=== PATIENT | male | born 1940 | race Caucasian/White ===

== ENCOUNTER 2017-12-03 08:40 | Emergency (ER) | payer MEDICARE, OTHER, SELFPAY ==
[2017-12-03] VITALS (42 sets, daily range): BP systolic 120–156; BP diastolic 49–73; PULSE 78–112; RESP 15–31; TEMP 36.8–37.4; O2SAT 93–99
[2017-12-03 08:53] LABS: Bilirubin Negative (Negative); Blood Moderate (Negative); Clarity Cloudy; Glucose Negative (Negative); Ketones Negative (Negative); Leukocyte Esterase Large (Negative); Nitrite Negative (Negative); Urobilinogen 0.2 EU/dL (Up TO 0.2); pH 5.5 (5-8)
--- NOTE | 2017-12-03 08:54 | DI.RAD_ITS ---
SYMPTOM/DIAGNOSIS: COUGH, CHILLS, CP AP AND LATERAL CHEST: Comparison is made with 14 Aug 2017. The heart size is within normal limits. The aorta is mildly tortuous There is streaky increased densities at the right lung base. There are mildly increased densities also seen at the left lung base. The findings could represent atelectasis vs pneumonia. No effusion is seen. There is no evidence of pulmonary edema. IMPRESSION: Question of bibasilar atelectasis vs pneumonia, left greater than right.
[2017-12-03 09:02] LABS: C & S Indicated? Yes; WBC >50 HPF (0-5)
[2017-12-03] MEDS: Ibuprofen 800 MG TAB PO (09:06)
[2017-12-03] MEDS: Acetaminophen 500 MG TAB 1000 MG PO (09:06)
--- NOTE | 2017-12-03 09:11 | ED.GENADUL_ITS ---
Discharge Plan Disposition Patient Disposition: HOME Condition: Good Discharge Details Chief Complaint: GenMedical Clinical Impression: Community acquired pneumonia, Urinary tract infection Primary Care Provider: Sheeba Morelos ED Provider: Aníbal Barraza Home Meds and New Rx's Prescriptions: New levofloxacin 750 mg tablet 750 mg PO DAILY Qty: 10 RF: 0 No Action fludrocortisone 0.1 MG tablet 0.15 mg PO DAILY Qty: 90 RF: 3 triamcinolone acetonide 15 GM cream 1 gr Topical BID Qty: 60 RF: 6 methotrexate sodium 2.5 MG tablet 15 mg PO as directed RF: 0 folic acid 1 MG tablet 2 mg PO DAILY RF: 0 montelukast 10 MG tablet 10 mg PO DAILY Qty: 90 RF: 3 budesonide-formoterol [Symbicort] 60 PUFF HFA aerosol inhaler 1 puff Inhalation BID Qty: 3 RF: 3 denosumab [Prolia] 60 MG/1 ML syringe 60 mg SQ q6 months RF: 0 pantoprazole 40 MG tablet,delayed release (DR/EC) 80 mg PO DAILY Qty: 90 RF: 3 cholecalciferol (vitamin D3) 2,000 UNIT tablet 5,000 unit PO DAILY RF: 0 hydrocortisone [Cortef] 5 MG tablet 5 tab-cap PO BID 90 Days Qty: 90 RF: 2 lidocaine [LC-5] 45 GM cream 1 film Topical 2-4 times daily PRN Qty: 1 RF: 0 needle (disp) 21 G [BD Regular Bevel [place]] 1 EACH needle 1 ea Miscellaneous monthly Qty: 12 RF: 0 cyanocobalamin (vitamin B-12) 1,000 MCG/1 ML solution 1,000 mcg IJ monthly Qty: 3 RF: 3 fluticasone 16 GM spray,suspension 2 spry NS DAILY Qty: 48 RF: 3 epinephrine 0.3 MG/SYR auto-injector 0.3 mg Sub-Q PRN PRNRF: 0 acetaminophen 325 MG tablet 650 mg PO Q4H PRN PRNRF: 0 aspirin [Aspir-81] 81 MG tablet,delayed release (DR/EC) 81 mg PO DAILY RF: 0 Discharge Instructions Additional Instructions: Please take antibiotic as directed. If you notice any pain in your joints or ligaments, please stop taking this immediately. If you notice any worsening of your symptoms, or any new symptoms such as vomiting, diarrhea, fever, chills, shortness of breath, chest pain, numbness, weakness, or fainting , please return immediately to the emergency department for reevaluation. Please follow up with your primary care provider as soon as possible for reassessment and reevaluation. As always, it was a pleasure participating in your medical care today. 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 He recently got his flu and shingles shot. Physical exam demonstrates no significant abnormalities at this time. Urinalysis does show signs of notable urinary tract infection. He has had a prostatectomy in the past, however he does not self catheterize. We will give the patient Rocephin IV, rehydrate, and assess for other sources of infection including pulmonary. EKG 9: 13 a.m. Rate 82, intervals normal, sinus rhythm, no ST elevations or depressions, inverted T waves in V2. No significant Q waves 12:44 PM patient's chest x-ray has returned and demonstrates evidence of small left lower lobe pneumonia. No other significant acute process per virtual radiology. The patient has no significant white count, no tachycardia, no fever , on reassessment the patient states that he is feeling much better. We did get him up and ambulate him around the emergency department he did so without any shortness of breath, hypoxemia or tachycardia. He tolerated this very well. With evidence of a small amount of community-acquired pneumonia, as well as urinary tract infection I feel that he would benefit from oral Levaquin to cover both lungs and urine. With the patient feeling well, and requesting to be discharged, I feel that this is appropriate. I do not see any current clinical indication for admission. Patient will be discharged home with close follow-up with his PCP. We discussed red flags which to return the patient understands. I have extensively reviewed the treatment plan and discharge instructions with the patient. I have addressed all patient concerns at this time. The patient was made aware of what symptoms to monitor for that would warrant a return to the emergency department. Discussed the plan with the patient, they demonstrate verbal understanding and agreement with our assessment and plan at this time. Lab Data Lab Results 12/03/17 Range/Units 08:45 Urine Color Yellow (Yellow) Urine Clarity Cloudy Urine pH 5.5 (5-8) Ur Specific [place] 1.020 (1.005-1.025) Urine Protein 100 H (Negative) mg/dL Urine Ketones Negative (Negative) mg/dL Urine Blood Moderate H (Negative) Urine Nitrite Negative (Negative) Urine Bilirubin Negative (Negative) Urine Urobilinogen 0.2 (Up TO 0.2) EU/dL Ur Leukocyte Esterase Large H (Negative) Urine RBC Not Applicable Urine WBC >50 (0-5) HPF Ur Epithelial Cells Not Applicable Urine Crystals Not Applicable Urine Bacteria Not Applicable Urine Mucus Not Applicable Ur Culture Indicated? Yes Urine Glucose Negative (Negative) mg/dL HPI - General Adult General Date/Time Provider Initiated Documentation: 12/03/17 08:54 . HPI Narrative: This is a 77-year-old male with a past medical history of myocardial infarction, adrenalectomy, chronic steroid secondary to this, DVT in the left lower extremity secondary to surgery and a long trip no longer on anticoagulation per his physician, colitis with eventual ostomy, appendectomy, cholecystectomy, who presents today for feelings of malaise. The patient states that over the last 24-48 hours he has had mild upset stomach, no vomiting. He denies any significant abdominal pain. He has also had an increase in urinary frequency, mild cough, and a mild headache. He has a history of cluster headaches, and he states that this current headache is very mild, not the worst headache of his life, not thunderclap in onset. The patient does admit to mild chills but denies any fever. He denies any vision changes, arm pain, neck pain, shoulder pain, chest pain, productivity for his cough, hemoptysis, hematemesis, hematuria, hematochezia, melena, acholic stool. Patient does state that he got his flu shot last week as well as a shingles shot. He feels that the symptoms may be from this. Patient denies any other complaints at this time. He denies any IV or illicit drug use. He denies any pertinent family history. Related Data Home Medications Medication Instructions Recorded Confirmed epinephrine 0.3 mg SUB-Q PRN PRN 10/07/14 12/03/17 acetaminophen 650 mg PO Q4H PRN PRN 10/26/15 12/03/17 aspirin [Aspir-81] 81 mg PO DAILY 10/26/15 12/03/17 folic acid 2 mg PO DAILY 10/24/16 12/03/17 methotrexate sodium 15 mg PO as directed 10/24/16 04/25/17 denosumab [Prolia] 60 mg SQ q6 months 03/15/17 12/03/17 cholecalciferol (vitamin D3) 5,000 unit PO DAILY 04/19/17 12/03/17 Previous Rx's Medication Instructions Recorded levofloxacin 750 mg PO DAILY #10 tab 12/03/17 Allergies Allergy/AdvReac Type Severity Reaction Status Date / Time latex Allergy Intermediate rash, Verified 12/03/17 08:56 itching plasma protein fraction Allergy Intermediate Hives Verified 12/03/17 08:56 acebutolol Allergy Unknown Verified 12/03/17 08:56 promethazine Allergy Unknown Verified 12/03/17 08:56 pseudoephedrine Allergy Unknown Verified 12/03/17 08:56 terazosin Allergy Unknown Verified 12/03/17 08:56 tramadol HCl [From Ultracet] Allergy Unknown Verified 12/03/17 08:56 venom-honey bee Allergy Verified 12/03/17 08:56 [bee venom (honey bee)] ferrous sulfate AdvReac Severe Stomach Verified 12/03/17 08:56 aches tamsulosin HCl [From Flomax] AdvReac Severe Dizziness/L Verified 12/03/17 08:56 ightheade Antihistamines - Alkylamine AdvReac Unknown affected Unverified 12/03/17 08:56 prostate cefuroxime AdvReac Unknown daark urine Verified 12/03/17 08:56 plasma human Allergy Intermediate Hives Uncoded 12/03/17 08:56 General Stated Complaint: GenMedical SANTOSH: 2 Review of Systems Review of Systems 10 point review of systems was performed, pertinent positives and negatives are noted in the history of present illness. PFSH Family History Mother Cerebrovascular accident Father No problems noted. Sister No problems noted. Brother No problems noted. Brother Diabetes ASCVD (arteriosclerotic cardiovascular disease) Brother No problems noted. Sister Diabetes Sister No problems noted. Other Arthritis Medical History Abdominal wall fistula CKD (chronic kidney disease) COPD (chronic obstructive pulmonary disease) Cholelithiasis Chronic deep vein thrombosis (DVT) Hypertension Ileostomy in place Ulcerative colitis Social History Smoking/Tobacco Use Status: Former Tobacco Use Surgical History Cholecystectomy (02/15/16) Extraction of cataract (07/28/16) Fracture, Closed Treatment (02/15/16) Total colectomy (09/25/97) Transurethral prostatectomy (11/24/14) cystoureteroscopy,lithotrypsy (05/11/15) hernia repair (04/08/99) proctectomy (11/23/98) repair retinal breaks (12/24/03) transsphenoidal hypophysectomy (11/15/93) Exam Narrative Exam Narrative: 1.Const: Well-nourished, Well-developed, appearing stated age 2.Eyes: PERRL, no conjunctival injection, and symmetrical lids. 3.ENT: Atraumatic external nose and ears. Moist MM. Neck: Symmetric, trachea midline, No thyromegaly. Patient demonstrates good movement of cervical neck. There is no nuchal rigidity, no nuchal tenderness. Patient is able to flex the neck without any difficulty or significant pain. Negative Kernig's and Brudzinski sign. No pain on palpation of the scalp. No signs of trauma 4.CVS: +S1/S2, No murmurs or gallops. Peripheral pulses 2+ and equal in all extremities. Brisk capillary refill in all extremities. 5.RESP: Unlabored respiratory effort. Clear to auscultation bilaterally. No wheezes rales or rhonchi 6.GI: Soft, Nontender/Nondistended, No hepatosplenomegaly. No guarding or rebound. Noted ostomy, pink mucosa. No blood. Multiple abdominal scars. No tenderness on exam. 7.MSK: Normocephalic/Atraumatic, Extremities w/o deformity or ttp No cyanosis or clubbing, Normal movement of all extremities 8.Skin: Warm, Dry. No rashes or lesions. 9.Neuro: college advisor II-XII grossly intact. Sensation grossly intact, no focal neurologic deficits. 10.Psych: (AAO) x3. Appropriate mood and affect Course Vital Signs Temperature 37.1 C 12/03/17 08:48 Pulse 90 12/03/17 08:48 Respiratory Rate 20 12/03/17 08:48 Blood Pressure 141/73 H 12/03/17 08:48 Pulse Oximetry 99 12/03/17 08:48 Temperature 37.1 C 12/03/17 08:48 Pulse 90 12/03/17 08:48 Respiratory Rate 20 12/03/17 08:54 Blood Pressure 141/73 H 12/03/17 08:48 Pulse Oximetry 99 12/03/17 08:48 Lab/Test Results Lab/Test Results: Laboratory Tests 12/03/17 08:45 Urine Color Yellow Urine Clarity Cloudy Urine pH 5.5 Ur Specific [place] 1.020 Urine Protein 100 H Urine Ketones Negative Urine Blood Moderate H Urine Nitrite Negative Urine Bilirubin Negative Urine Urobilinogen 0.2 Ur Leukocyte Esterase Large H Urine RBC Not Applicable Urine WBC >50 Ur Epithelial Cells Not Applicable Urine Crystals Not Applicable Urine Bacteria Not Applicable Urine Mucus Not Applicable Ur Culture Indicated? Yes Urine Glucose Negative
[2017-12-03] MEDS: Normal Saline 1,000 ML 1000 ML IV (09:30)
[2017-12-03 09:37] LABS: Abs Immature Grans 0.02 k/cumm (0.0-0.09); Absolute Basophil Count 0.01 k/cumm (0.0-0.2); Absolute Eosinophil Count 0.36 k/cumm (0.0-0.7); Absolute Monocyte Count 1.12 k/cumm (0.11-0.7); Basophils % 0.2; Eosinophils % 6.8; HCT 37.5 % (40.0-50.0); HGB 12.3 g/dL (13.5-17.5); Immature Grans % 0.4; Lymphocytes % 15.1; Mean Corp. HGB Concentration 32.8 g/dL (32.0-36.0); Mean Corpuscular Hemoglobin 31.5 pg (27.0-33.0); Mean Corpuscular Volume 95.9 fL (80-95); Mean Platelet Volume 11.7 fL (8.0-11.0); Monocytes % 21.1; Neutrophils % 56.4; RBC 3.91 m/cumm (4.50-6.00); RBC Distribution Width 16.5 % (11.8-14.1); White Blood Cell Count 5.31 k/cumm (4.4-10.8)
[2017-12-03 09:53] LABS: ALT 38 U/L (12-78); AST 48 U/L (15-37); Albumin 3.4 g/dL (3.4-5.0); Alkaline Phosphatase 107 U/L (46-116); Anion Gap 8.6 mmol/L (3-11); BUN 18 mg/dL (7-18); Bilirubin, Total 1.4 mg/dL (0.2-1.0); CO2 27.4 mmol/L (21.0-32.0); CREATININE 1.18 mg/dL (0.70-1.30); Calcium 8.6 mg/dL (8.5-10.1); Chloride 102 mmol/L (98-107); Glucose 97 mg/dL (70-100); Lipase 199 U/L (73-393); Potassium 4.1 mmol/L (3.5-5.1); Sodium 138 mmol/L (136-145); Total Protein 7.4 g/dL (6.4-8.2)
[2017-12-03 09:54] LABS: Platelet Count 92 x1000/uL (130-400)
[2017-12-03 09:55] LABS: Diff Comment PLT Morph Reviewed; RBC Morphology Normal
[2017-12-03 10:00] LABS: Troponin I < 0.02 ng/mL (0.00-0.06)
[2017-12-03] MEDS: Normal Saline 500 ML 1000 ML IV (10:52)
--- NOTE | 2017-12-03 11:15 | DI.VRAD_ITS ---
EXAM: XR Chest, 2 Views EXAM DATE/TIME: 12/03/2017 8:57 AM CLINICAL HISTORY: 77 years old, male; Signs and symptoms; Other: Cough, chills, cp TECHNIQUE: Frontal and lateral views of the chest. COMPARISON: CR - CHEST 2 VIEWS PA,LAT 08/14/2017 11:13 AM FINDINGS: Lungs: There is some coarse left lower lobe markings increased in conspicuity compared to prior study. Pleural space: Unremarkable. No pneumothorax. Heart: Unremarkable. No cardiomegaly. Mediastinum: Unremarkable. Bones/joints: There is mild dextroscoliosis again seen. Vasculature: Moderate aortic ectasia noted. Upper abdomen: There is mild elevation of the left hemidiaphragm. IMPRESSION: Probable left lower lobe pneumonia. Followup to assess clearing recommended. Preliminary interpretation is based on receipt of 3 image(s). A final report will be issued subsequently. We appreciate the opportunity to be involved in this patient's care. Dictated and Authenticated by: Floridalma France MD. Ordering:LIZ RENAE MD
== END 2017-12-03 13:10 | disposition home or self-care (01) ==
PROVIDERS: Emergency Provider Student in an Organized Health Care Education/Training Program; PCP Nurse Practitioner
DX: J18.9 Pneumonia, unspecified organism (principal); N39.0 Urinary tract infection, site not specified; I12.9 Hypertensive chronic kidney disease with stage 1 through stage 4 chronic kidney disease, or unspecified chronic kidney disease; N18.9 Chronic kidney disease, unspecified; J44.9 Chronic obstructive pulmonary disease, unspecified; Z87.891 Personal history of nicotine dependence
CPT/HCPCS: 36415; 80053; 83690; 87449; 93005; 94618; 96361; 96365; 99285; 71046; 81003; 81015; 84484; 85025; 87086; 93010

== ENCOUNTER 2017-12-06 08:25 | Emergency (ER) | payer MEDICARE, OTHER, SELFPAY ==
[2017-12-06] VITALS (18 sets, daily range): BP systolic 119–142; BP diastolic 52–69; PULSE 69–84; RESP 15–36; TEMP 37.1; O2SAT 95–100
--- NOTE | 2017-12-06 08:21 | DI.CT_ITS ---
SYMPTOM/DIAGNOSIS: ALTERED MENTAL STATUS, ? CVA NONCONTRAST HEAD CT: No priors. There is a left subdural fluid collection extending along the left frontal and parietal bones. It is largely of decreased and intermediate density however there is a high density component consistent with an acute hemorrhagic component. There is very mild mass effect on the adjacent sulci. There does appear to be a slight midline shift to the right of approximately 3 mm. No intraparenchymal hemorrhage or infarct is seen. The ventricles are intact. The basilar cisterns are patent. There is mild global cerebral atrophy. Areas of decreased attenuation are seen in the white matter consistent with small vessel ischemic disease. The calvarium is intact. There is mild mucosal thickening in the maxillary sinuses and moderate mucosal thickening in the ethmoid air cells. No fluid levels are present. The mastoid air cells are well pneumatized. IMPRESSION: Left frontal and parietal subdural hematoma in various stages including findings consistent with acute hemorrhage. Mild mass effect and mild midline shift to the right is noted. No evidence of an acute infarct or calvarial fracture. The findings were discussed with Dr Sheree Angel on the date of the examination.
--- NOTE | 2017-12-06 08:41 | W.ED.GENAD ---
Discharge Plan Disposition Patient Disposition: SVETLANA STONE ([facility]) Discharge Details Chief Complaint: CVA/TIA Clinical Impression: Acute subdural hematoma Primary Care Provider: Sheeba Morelos ED Provider: Sheree Angel Home Meds and New Rx's Prescriptions: No Action fludrocortisone 0.1 MG tablet 0.15 mg PO DAILY Qty: 90 RF: 3 triamcinolone acetonide 15 GM cream 1 gr Topical BID Qty: 60 RF: 6 methotrexate sodium 2.5 MG tablet 15 mg PO as directed RF: 0 folic acid 1 MG tablet 2 mg PO DAILY RF: 0 montelukast 10 MG tablet 10 mg PO DAILY Qty: 90 RF: 3 budesonide-formoterol [Symbicort] 60 PUFF HFA aerosol inhaler 1 puff Inhalation BID Qty: 3 RF: 3 denosumab [Prolia] 60 MG/1 ML syringe 60 mg SQ q6 months RF: 0 pantoprazole 40 MG tablet,delayed release (DR/EC) 80 mg PO DAILY Qty: 90 RF: 3 cholecalciferol (vitamin D3) 2,000 UNIT tablet 5,000 unit PO DAILY RF: 0 hydrocortisone [Cortef] 5 MG tablet 5 tab-cap PO BID 90 Days Qty: 90 RF: 2 lidocaine [LC-5] 45 GM cream 1 film Topical 2-4 times daily PRN Qty: 1 RF: 0 needle (disp) 21 G [BD Regular Bevel Loma] 1 EACH needle 1 ea Miscellaneous monthly Qty: 12 RF: 0 cyanocobalamin (vitamin B-12) 1,000 MCG/1 ML solution 1,000 mcg IJ monthly Qty: 3 RF: 3 fluticasone 16 GM spray,suspension 2 spry NS DAILY Qty: 48 RF: 3 epinephrine 0.3 MG/SYR auto-injector 0.3 mg Sub-Q PRN PRNRF: 0 acetaminophen 325 MG tablet 650 mg PO Q4H PRN PRNRF: 0 aspirin [Aspir-81] 81 MG tablet,delayed release (DR/EC) 81 mg PO DAILY RF: 0 levofloxacin 750 mg tablet 750 mg PO DAILY Qty: 10 RF: 0 Discharge Data Discharge Date/Time-TO BE ENTERED AT DEPARTURE: 12/06/17 10:00 Medical Decision Making MDM Narrative Medical decision making narrative: Liang Wang is a 77-year-old man with history of [place]'s disease, ulcerative colitis status post total colectomy, currently been treated for UTI presenting to the emergency department with right-sided weakness and difficulty speaking that began upon waking this morning. On exam patient is alert. He has mild to moderate expressive aphasia and there also appears to be some receptive aphasia component. He has reduced strength in the right upper and lower extremities. NIH stroke scale is 7. Concern for acute CVA. Doubt infection, metabolic/lyte derangement as etiology of altered mental status. Plan for CT head, EKG, chest x-ray, screening labs, telemetry, IV placement. Will monitor and reassess. 8:38: Notified per radiology acute on chronic subdural hematoma 1cm, no midline shift 8:40: Contacted [facility] transfer center, they are accepting no adult patients at this time, images sent, neurosurgery to call back in consultation 8:45: radiology notes 3-4mm midline shift. Pt with exam unchanged. 8:48 Contacted [facility] transfer center. images sent, awaiting call back. On reassessment no change of Pt exam. 9:10: Pt accepted for transfer by Dr. Crow, [facility]. Plan for transport by air given midline shift. 9:15: Discussed Pt presentation, results with neurosurgery on-call at [facility], hold hyperosmotic agents pending worsening exam, maintain head of bed at 30 degrees. No further recs. 9:33: No helicopter available 2/2 weather. Considered possible ground critical transport by [facility], but given transit time from and back to [facility] and no change in Pt status, and risks of delay, decision made to transfer immediately by local medics. Pt with at bedside. Continues to be alert, no airway issues, no change. Pt left ED for transfer without issue. Imaging Data Radiologic Study: Imaging: CT Scan Radiologist's impression: NONCONTRAST HEAD CT: No priors. There is a left subdural fluid collection extending along the left frontal and parietal bones. It is largely of decreased and intermediate density however there is a high density component consistent with an acute hemorrhagic component. There is very mild mass effect on the adjacent sulci. There does appear to be a slight midline shift to the right of approximately 3 mm. No intraparenchymal hemorrhage or infarct is seen. The ventricles are intact. The basilar cisterns are patent. There is mild global cerebral atrophy. Areas of decreased attenuation are seen in the white matter consistent with small vessel ischemic disease. The calvarium is intact. There is mild mucosal thickening in the maxillary sinuses and moderate mucosal thickening in the ethmoid air cells. No fluid levels are present. The mastoid air cells are well pneumatized. IMPRESSION: Left frontal and parietal subdural hematoma in various stages including findings consistent with acute hemorrhage. Mild mass effect and mild midline shift to the right is noted. No evidence of an acute infarct or calvarial fracture. Lab Data Lab results reviewed: Yes I reviewed the patient's lab results. ECG Data Attestation: I personally reviewed and interpreted this ECG (s) as follows: Interpretation: EKG shows NSR at 81 with frequent PVCs, inc RBBB, non-specific ST changes, non-diagnostic EKG HPI - General Adult General Mode of arrival: EMS. Date/Time Provider Initiated Documentation: 12/06/17 09:01. Limitations to Documentation: altered mental status. Information obtained by: patient and EMS. HPI Narrative: Liang Wang is a 77 y/o man with history of [place]'s disease, ulcerative colitis status post total colectomy, asthma, currently being treated for UTI presenting to the emergency department with change in mental status. Patient reports that he went to bed in his usual state of health. He reports that he woke up this morning with difficulty speaking and weakness of his right arm and leg. He had difficulty holding his pill bottle and spilled his pills immediately after waking. Patient reports that at approximately 715 this morning he was walking out to his truck with his when he fell due to weakness on his right side. He denies hitting his head and he did not lose consciousness. His called 911 at that time. He has had no vomiting. He denies any pain at this time. Patient reports that his symptoms have been essentially unchanged since he woke up this morning. Never with similar symptoms in the past. Previously in his usual state of health without recent illnesses. Patient reports that he has had no other falls or trauma, except that he did fall and hit his head 6 months ago. Related Data Home Medications Medication Instructions Recorded Confirmed epinephrine 0.3 mg SUB-Q PRN PRN 10/07/14 12/06/17 acetaminophen 650 mg PO Q4H PRN PRN 10/26/15 12/06/17 aspirin [Aspir-81] 81 mg PO DAILY 10/26/15 12/06/17 fludrocortisone 0.15 mg PO DAILY #90 tab-cap 03/17/16 triamcinolone acetonide 1 gr TOPICAL BID #60 gm 03/17/16 folic acid 2 mg PO DAILY 10/24/16 12/06/17 methotrexate sodium 15 mg PO as directed 10/24/16 12/06/17 denosumab [Prolia] 60 mg SQ q6 months 03/15/17 12/06/17 cholecalciferol (vitamin D3) 5,000 unit PO DAILY 04/19/17 12/06/17 Previous Rx's Medication Instructions Recorded budesonide-formoterol [Symbicort] 1 puff INHALATION BID #3 canister 01/03/17 montelukast 10 mg PO DAILY #90 tab-cap 01/03/17 pantoprazole 80 mg PO DAILY #90 tab-cap 04/03/17 hydrocortisone [Cortef] 5 tab-cap PO BID 90 Days #90 04/21/17 tab-cap NS lidocaine [Lc-5] 1 film TOPICAL 2-4 times daily PRN 09/06/17 #1 tube cyanocobalamin (vitamin B-12) 1,000 mcg IJ monthly #3 vial 11/16/17 fluticasone 2 spry NS DAILY #48 gm 11/16/17 needle (disp) 21 G [Loma] #12 ea 11/16/17 levofloxacin 750 mg PO DAILY #10 tab 12/03/17 Allergies Allergy/AdvReac Type Severity Reaction Status Date / Time latex Allergy Intermediate rash, Verified 12/06/17 08:49 itching plasma protein fraction Allergy Intermediate Hives Verified 12/06/17 08:49 acebutolol Allergy Unknown Verified 12/06/17 08:49 promethazine Allergy Unknown Verified 12/06/17 08:49 pseudoephedrine Allergy Unknown Verified 12/06/17 08:49 terazosin Allergy Unknown Verified 12/06/17 08:49 tramadol HCl [From Ultracet] Allergy Unknown Verified 12/06/17 08:49 venom-honey bee Allergy Verified 12/06/17 08:49 [bee venom (honey bee)] ferrous sulfate AdvReac Severe Stomach Verified 12/06/17 08:49 aches tamsulosin HCl [From Flomax] AdvReac Severe Dizziness/L Verified 12/06/17 08:49 ightheade Antihistamines - Alkylamine AdvReac Unknown affected Unverified 12/06/17 08:49 prostate cefuroxime AdvReac Unknown daark urine Verified 12/06/17 08:49 plasma human Allergy Intermediate Hives Uncoded 12/06/17 08:49 General Stated Complaint: CVA/TIA SANTOSH: 2 Review of Systems Review of Systems Constitutional: denies fevers Eyes: denies eye pain ENT: denies facial pain, dental pain, sore throat Cardiovascular: denies chest pain, edema Respiratory: denies SOB, cough GI: denies abdominal pain, vomiting, diarrhea : denies flank pain MSK: denies back pain, neck pain, arhtralgias, myalgias Skin: denies rash Neuro: denies headaches, lightheadedness; reports weakness PFSH Family History Mother Cerebrovascular accident Father No problems noted. Sister No problems noted. Brother No problems noted. Brother Diabetes ASCVD (arteriosclerotic cardiovascular disease) Brother No problems noted. Sister Diabetes Sister No problems noted. Other Arthritis Medical History Abdominal wall fistula CKD (chronic kidney disease) COPD (chronic obstructive pulmonary disease) Cholelithiasis Chronic deep vein thrombosis (DVT) Hypertension Ileostomy in place Ulcerative colitis Surgical History Cholecystectomy (02/15/16) Extraction of cataract (07/28/16) Fracture, Closed Treatment (02/15/16) Total colectomy (09/25/97) Transurethral prostatectomy (11/24/14) cystoureteroscopy,lithotrypsy (05/11/15) hernia repair (04/08/99) proctectomy (11/23/98) repair retinal breaks (12/24/03) transsphenoidal hypophysectomy (11/15/93) Exam Narrative Exam Narrative: Constitutional: well and [id number], pleasant, mild-mod aphasic conversation HENT: head atraumatic, normocephalic normal inspection, mucous membranes moist Eyes: conjunctiva normal, sclera normal, pupils 3mm b/l, EOMI Neck: no stridor, normal ROM, trachea midline Chest: normal inspection Resp: normal work of breathing, LCTAB Cardio: normal rate, normal rhythm, no murmur appreciated GI: abdomen soft, non-tender, non-distended, colostomy normal Back: normal inspection, no rash Skin: warm, dry, normal color, no rash Neuro: alert, able to converse with mild-moderate aphasia, manager e commerce 2-12 intact, no visual field deficit, motor 4/5 RUE, 3+/5 RLE, 5/5 LUE, 5/5 LLE, no pronator drift, significant RUE, NIHSS 7 Ext: no edema Psych: normal mood, normal affect Course Vital Signs Temperature 37.1 C 12/06/17 08:27 Pulse 77 12/06/17 08:27 Respiratory Rate 28 H 12/06/17 08:27 Blood Pressure 142/52 H 12/06/17 08:27 Pulse Oximetry 99 12/06/17 08:27 Temperature 37.1 C 12/06/17 08:27 Pulse 77 12/06/17 08:27 Respiratory Rate 28 H 12/06/17 08:27 Blood Pressure 142/52 H 12/06/17 08:27 Pulse Oximetry 99 12/06/17 08:27 Critical Care Time Critical Care Time: Yes Total Critical Care Time: 45 (minutes) Attestation: I have spent greater than 45 minutes critical care time with this critically ill patient.
[2017-12-06 08:48] LABS: Lactate-non-spesis 2.2 mmol/L (0.6-1.4)
--- NOTE | 2017-12-06 08:51 | ED.GENADUL_ITS ---
Discharge Plan Disposition Patient Disposition: SVETLANA STONE ([facility]) Discharge Details Chief Complaint: CVA/TIA Clinical Impression: Acute subdural hematoma Primary Care Provider: Sheeba Morelos ED Provider: Sheree Angel Home Meds and New Rx's Prescriptions: No Action fludrocortisone 0.1 MG tablet 0.15 mg PO DAILY Qty: 90 RF: 3 triamcinolone acetonide 15 GM cream 1 gr Topical BID Qty: 60 RF: 6 methotrexate sodium 2.5 MG tablet 15 mg PO as directed RF: 0 folic acid 1 MG tablet 2 mg PO DAILY RF: 0 montelukast 10 MG tablet 10 mg PO DAILY Qty: 90 RF: 3 budesonide-formoterol [Symbicort] 60 PUFF HFA aerosol inhaler 1 puff Inhalation BID Qty: 3 RF: 3 denosumab [Prolia] 60 MG/1 ML syringe 60 mg SQ q6 months RF: 0 pantoprazole 40 MG tablet,delayed release (DR/EC) 80 mg PO DAILY Qty: 90 RF: 3 cholecalciferol (vitamin D3) 2,000 UNIT tablet 5,000 unit PO DAILY RF: 0 hydrocortisone [Cortef] 5 MG tablet 5 tab-cap PO BID 90 Days Qty: 90 RF: 2 lidocaine [LC-5] 45 GM cream 1 film Topical 2-4 times daily PRN Qty: 1 RF: 0 needle (disp) 21 G [BD Regular Bevel Lyndora] 1 EACH needle 1 ea Miscellaneous monthly Qty: 12 RF: 0 cyanocobalamin (vitamin B-12) 1,000 MCG/1 ML solution 1,000 mcg IJ monthly Qty: 3 RF: 3 fluticasone 16 GM spray,suspension 2 spry NS DAILY Qty: 48 RF: 3 epinephrine 0.3 MG/SYR auto-injector 0.3 mg Sub-Q PRN PRNRF: 0 acetaminophen 325 MG tablet 650 mg PO Q4H PRN PRNRF: 0 aspirin [Aspir-81] 81 MG tablet,delayed release (DR/EC) 81 mg PO DAILY RF: 0 levofloxacin 750 mg tablet 750 mg PO DAILY Qty: 10 RF: 0 Discharge Data Discharge Date/Time-TO BE ENTERED AT DEPARTURE: 12/06/17 10:00 Medical Decision Making MDM Narrative Medical decision making narrative: Liang Wang is a 77-year-old man with history of [place]ador's disease, ulcerative colitis status post total colectomy, currently been treated for UTI presenting to the emergency department with right-sided weakness and difficulty speaking that began upon waking this morning. On exam patient is alert. He has mild to moderate expressive aphasia and there also appears to be some receptive aphasia component. He has reduced strength in the right upper and lower extremities. NIH stroke scale is 7. Concern for acute CVA. Doubt infection, metabolic/lyte derangement as etiology of altered mental status. Plan for CT head, EKG, chest x-ray, screening labs, telemetry, IV placement. Will monitor and reassess. 8:38: Notified per radiology acute on chronic subdural hematoma 1cm, no midline shift 8:40: Contacted [facility] [place] transfer center, they are accepting no adult patients at this time, images sent, neurosurgery to call back in consultation 8:45: radiology notes 3-4mm midline shift. Pt with exam unchanged. 8:48 Contacted [facility] transfer center. images sent, awaiting call back. On reassessment no change of Pt exam. 9:10: Pt accepted for transfer by Dr. Crow, [facility]. Plan for transport by air given midline shift. 9:15: Discussed Pt presentation, results with neurosurgery on-call at [facility], hold hyperosmotic agents pending worsening exam, maintain head of bed at 30 degrees. No further recs. 9:33: No helicopter available 2/2 weather. Considered possible ground critical transport by [facility], but given transit time from and back to [facility] and no change in Pt status, and risks of delay, decision made to transfer immediately by local medics. Pt with at bedside. Continues to be alert, no airway issues, no change. Pt left ED for transfer without issue. Imaging Data Radiologic Study: Imaging: CT Scan Radiologist's impression: NONCONTRAST HEAD CT: No priors. There is a left subdural fluid collection extending along the left frontal and parietal bones. It is largely of decreased and intermediate density however there is a high density component consistent with an acute hemorrhagic component. There is very mild mass effect on the adjacent sulci. There does appear to be a slight midline shift to the right of approximately 3 mm. No intraparenchymal hemorrhage or infarct is seen. The ventricles are intact. The basilar cisterns are patent. There is mild global cerebral atrophy. Areas of decreased attenuation are seen in the white matter consistent with small vessel ischemic disease. The calvarium is intact. There is mild mucosal thickening in the maxillary sinuses and moderate mucosal thickening in the ethmoid air cells. No fluid levels are present. The mastoid air cells are well pneumatized. IMPRESSION: Left frontal and parietal subdural hematoma in various stages including findings consistent with acute hemorrhage. Mild mass effect and mild midline shift to the right is noted. No evidence of an acute infarct or calvarial fracture. Lab Data Lab results reviewed: Yes I reviewed the patient's lab results. ECG Data Attestation: I personally reviewed and interpreted this ECG (s) as follows: Interpretation: EKG shows NSR at 81 with frequent PVCs, inc RBBB, non-specific ST changes, non-diagnostic EKG HPI - General Adult General Mode of arrival: EMS . Date/Time Provider Initiated Documentation: 12/06/17 09:01 . Limitations to Documentation: altered mental status . Information obtained by: patient and EMS . HPI Narrative: Liang Wang is a 77 y/o man with history of Amador's disease, ulcerative colitis status post total colectomy, asthma, currently being treated for UTI presenting to the emergency department with change in mental status. Patient reports that he went to bed in his usual state of health. He reports that he woke up this morning with difficulty speaking and weakness of his right arm and leg. He had difficulty holding his pill bottle and spilled his pills immediately after waking. Patient reports that at approximately 715 this morning he was walking out to his truck with his when he fell due to weakness on his right side. He denies hitting his head and he did not lose consciousness. His called 911 at that time. He has had no vomiting. He denies any pain at this time. Patient reports that his symptoms have been essentially unchanged since he woke up this morning. Never with similar symptoms in the past. Previously in his usual state of health without recent illnesses. Patient reports that he has had no other falls or trauma, except that he did fall and hit his head 6 months ago. Related Data Home Medications Medication Instructions Recorded Confirmed epinephrine 0.3 mg SUB-Q PRN PRN 10/07/14 12/06/17 acetaminophen 650 mg PO Q4H PRN PRN 10/26/15 12/06/17 aspirin [Aspir-81] 81 mg PO DAILY 10/26/15 12/06/17 fludrocortisone 0.15 mg PO DAILY #90 tab-cap 03/17/16 triamcinolone acetonide 1 gr TOPICAL BID #60 gm 03/17/16 folic acid 2 mg PO DAILY 10/24/16 12/06/17 methotrexate sodium 15 mg PO as directed 10/24/16 12/06/17 denosumab [Prolia] 60 mg SQ q6 months 03/15/17 12/06/17 cholecalciferol (vitamin D3) 5,000 unit PO DAILY 04/19/17 12/06/17 Previous Rx's Medication Instructions Recorded budesonide-formoterol [Symbicort] 1 puff INHALATION BID #3 canister 01/03/17 montelukast 10 mg PO DAILY #90 tab-cap 01/03/17 pantoprazole 80 mg PO DAILY #90 tab-cap 04/03/17 hydrocortisone [Cortef] 5 tab-cap PO BID 90 Days #90 04/21/17 tab-cap NS lidocaine [Lc-5] 1 film TOPICAL 2-4 times daily PRN 09/06/17 #1 tube cyanocobalamin (vitamin B-12) 1,000 mcg IJ monthly #3 vial 11/16/17 fluticasone 2 spry NS DAILY #48 gm 11/16/17 needle (disp) 21 G [Lyndora] #12 ea 11/16/17 levofloxacin 750 mg PO DAILY #10 tab 12/03/17 Allergies Allergy/AdvReac Type Severity Reaction Status Date / Time latex Allergy Intermediate rash, Verified 12/06/17 08:49 itching plasma protein fraction Allergy Intermediate Hives Verified 12/06/17 08:49 acebutolol Allergy Unknown Verified 12/06/17 08:49 promethazine Allergy Unknown Verified 12/06/17 08:49 pseudoephedrine Allergy Unknown Verified 12/06/17 08:49 terazosin Allergy Unknown Verified 12/06/17 08:49 tramadol HCl [From Ultracet] Allergy Unknown Verified 12/06/17 08:49 venom-honey bee Allergy Verified 12/06/17 08:49 [bee venom (honey bee)] ferrous sulfate AdvReac Severe Stomach Verified 12/06/17 08:49 aches tamsulosin HCl [From Flomax] AdvReac Severe Dizziness/L Verified 12/06/17 08:49 ightheade Antihistamines - Alkylamine AdvReac Unknown affected Unverified 12/06/17 08:49 prostate cefuroxime AdvReac Unknown daark urine Verified 12/06/17 08:49 plasma human Allergy Intermediate Hives Uncoded 12/06/17 08:49 General Stated Complaint: CVA/TIA SANTOSH: 2 Review of Systems Review of Systems Constitutional: denies fevers Eyes: denies eye pain ENT: denies facial pain, dental pain, sore throat Cardiovascular: denies chest pain, edema Respiratory: denies SOB, cough GI: denies abdominal pain, vomiting, diarrhea : denies flank pain MSK: denies back pain, neck pain, arhtralgias, myalgias Skin: denies rash Neuro: denies headaches, lightheadedness; reports weakness PFSH Family History Mother Cerebrovascular accident Father No problems noted. Sister No problems noted. Brother No problems noted. Brother Diabetes ASCVD (arteriosclerotic cardiovascular disease) Brother No problems noted. Sister Diabetes Sister No problems noted. Other Arthritis Medical History Abdominal wall fistula CKD (chronic kidney disease) COPD (chronic obstructive pulmonary disease) Cholelithiasis Chronic deep vein thrombosis (DVT) Hypertension Ileostomy in place Ulcerative colitis Surgical History Cholecystectomy (02/15/16) Extraction of cataract (07/28/16) Fracture, Closed Treatment (02/15/16) Total colectomy (09/25/97) Transurethral prostatectomy (11/24/14) cystoureteroscopy,lithotrypsy (05/11/15) hernia repair (04/08/99) proctectomy (11/23/98) repair retinal breaks (12/24/03) transsphenoidal hypophysectomy (11/15/93) Exam Narrative Exam Narrative: Constitutional: well and [id number], pleasant, mild- mod aphasic conversation HENT: head atraumatic, normocephalic normal inspection, mucous membranes moist Eyes: conjunctiva normal, sclera normal, pupils 3mm b/l, EOMI Neck: no stridor, normal ROM, trachea midline Chest: normal inspection Resp: normal work of breathing, LCTAB Cardio: normal rate, normal rhythm, no murmur appreciated GI: abdomen soft, non-tender, non-distended, colostomy normal Back: normal inspection, no rash Skin: warm, dry, normal color, no rash Neuro: alert, able to converse with mild-moderate aphasia, county coroner 2-12 intact, no visual field deficit, motor 4/5 RUE, 3+/5 RLE, 5/5 LUE, 5/5 LLE, no pronator drift, significant RUE, NIHSS 7 Ext: no edema Psych: normal mood, normal affect Course Vital Signs Temperature 37.1 C 12/06/17 08:27 Pulse 77 12/06/17 08:27 Respiratory Rate 28 H 12/06/17 08:27 Blood Pressure 142/52 H 12/06/17 08:27 Pulse Oximetry 99 12/06/17 08:27 Temperature 37.1 C 12/06/17 08:27 Pulse 77 12/06/17 08:27 Respiratory Rate 28 H 12/06/17 08:27 Blood Pressure 142/52 H 12/06/17 08:27 Pulse Oximetry 99 12/06/17 08:27 Critical Care Time Critical Care Time: Yes Total Critical Care Time: 45 (minutes) Attestation: I have spent greater than 45 minutes critical care time with this critically ill patient.
[2017-12-06 08:55] LABS: Abs Immature Grans 0.01 k/cumm (0.0-0.09); Absolute Basophil Count 0.02 k/cumm (0.0-0.2); Absolute Eosinophil Count 0.23 k/cumm (0.0-0.7); Absolute Lymphocyte Count 0.83 k/cumm (1.2-3.4); Absolute Monocyte Count 0.92 k/cumm (0.11-0.7); Absolute Neutrophil Count 2.88 k/cumm (1.2-6.7); Basophils % 0.4; Eosinophils % 4.7; HCT 37.1 % (40.0-50.0); Immature Grans % 0.2; Mean Corp. HGB Concentration 32.3 g/dL (32.0-36.0); Mean Corpuscular Hemoglobin 31.2 pg (27.0-33.0); Mean Corpuscular Volume 96.4 fL (80-95); Mean Platelet Volume 11.7 fL (8.0-11.0); Monocytes % 18.8; Neutrophils % 58.9; Platelet Count 123 x1000/uL (130-400); RBC 3.85 m/cumm (4.50-6.00); RBC Distribution Width 16.1 % (11.8-14.1); White Blood Cell Count 4.89 k/cumm (4.4-10.8)
[2017-12-06 09:10] LABS: ALT 35 U/L (12-78); AST 33 U/L (15-37); Albumin 3.3 g/dL (3.4-5.0); Alkaline Phosphatase 97 U/L (46-116); Anion Gap 9.1 mmol/L (3-11); BUN 16 mg/dL (7-18); Bilirubin, Total 1.2 mg/dL (0.2-1.0); CO2 25.9 mmol/L (21.0-32.0); CREATININE 1.27 mg/dL (0.70-1.30); Calcium 8.3 mg/dL (8.5-10.1); Chloride 103 mmol/L (98-107); Estimated GFR 55.29 (mL/min/1.73m2); Glucose 100 mg/dL (70-100); Potassium 3.4 mmol/L (3.5-5.1); Sodium 138 mmol/L (136-145); Total Protein 7.1 g/dL (6.4-8.2)
[2017-12-06 09:11] LABS: Troponin I < 0.02 ng/mL (0.00-0.06)
[2017-12-06 09:13] LABS: INR 1.1 (1.0-3.5); PTT Activated 25.2 sec (21.0-31.4); Prothrombin Time 10.3 sec (9.3-10.8)
[2017-12-06] MEDS: Normal Saline 1,000 ML 100 ML IV (09:41)
--- NOTE | 2017-12-06 10:32 | PDOC.ERCMPRO ---
Care Management Progress Note 12/06/17-Pt seen in ED today for stroke,. Pt was transferred to [facility] for further care by Paulette. Pt was having a hard time articulating his words. He was able to express concern for his , Steffany who has Parkinson's Disease. CM contacted at home by phone. was able to arrange transportation to ED by [facility] . After Pt left to go to [facility], and CM took a walk to the gift shop whereas she purchased low dose aspirin as she was almost out at home. CM contacted Steffany's [id number], Nicole who lives in [facility] to inform them of Pt's stroke and to make a plan for Steffany. Nicole will keep in touch with Steffany and will check on her (nicole lives in [facility]) Steffany states her pill box is filled for the next five days and her refrigerator is filled with food and leftovers. Steffany is crying and is concerned for cat, Griselda at home. She does not want anyone to take her from her which, I reassured her that will not happen. Steffany finds comfort with her cat. JOSE ANTONIO conatcted RCT for Steffany to return home. CM called and left a message at [facility] to request for them to cover Steffany's RCT rides to visit Liang at [facility]. CM will await to hear back . JOSE ANTONIO will call Steffany later this afternoon to check in with her.
--- NOTE | 2017-12-06 10:41 | CMPROGNOTE_ITS ---
Care Management Progress Note 12/06/17-Pt seen in ED today for stroke,. Pt was transferred to [facility] for further care by Paulette. Pt was having a hard time articulating his words. He was able to express concern for his , Steffany who has Parkinson's Disease. CM contacted at home by phone. was able to arrange transportation to ED by [facility] . After Pt left to go to [facility], and CM took a walk to the gift shop whereas she purchased low dose aspirin as she was almost out at home. CM contacted Steffany's slgeke-tt-pid, Nicole who lives in [facility] to inform them of Pt's stroke and to make a plan for Steffany. Nicole will keep in touch with Steffany and will check on her (nicole lives in [facility]) Steffany states her pill box is filled for the next five days and her refrigerator is filled with food and leftovers. Steffany is crying and is concerned for cat, Griselda at home. She does not want anyone to take her from her which, I reassured her that will not happen. Steffany finds comfort with her cat. JOSE ANTONIO conatcted RCT for Steffany to return home. CM called and left a message at [facility] to request for them to cover Steffany's RCT rides to visit Liang at [facility]. CM will await to hear back . JOSE ANTONIO will call Steffany later this afternoon to check in with her.
== END 2017-12-06 10:00 | disposition short-term general hospital (02) ==
PROVIDERS: Emergency Provider Student in an Organized Health Care Education/Training Program; PCP Nurse Practitioner
DX: I62.01 Nontraumatic acute subdural hemorrhage (principal); R47.01 Aphasia; R29.707 NIHSS score 7; I12.9 Hypertensive chronic kidney disease with stage 1 through stage 4 chronic kidney disease, or unspecified chronic kidney disease; N18.9 Chronic kidney disease, unspecified; J44.9 Chronic obstructive pulmonary disease, unspecified; Z87.891 Personal history of nicotine dependence
CPT/HCPCS: 36415; 36416; 80053; 82962; 93005; 99291; 70450; 83605; 84484; 85025; 85610; 85730; 93010

== ENCOUNTER 2017-12-27 15:10 | Outpatient (REF) | payer MEDICARE, OTHER, SELFPAY | END 2017-12-27 15:30 | LOC: LBN 15:10 | PROVIDERS: PCP Nurse Practitioner; Visit Provider Student in an Organized Health Care Education/Training Program | DX: R53.83 Other fatigue (principal); N39.0 Urinary tract infection, site not specified | CPT/HCPCS: 87086 ==

== ENCOUNTER 2017-12-28 13:41 | Outpatient (REF) | payer MEDICARE, OTHER, SELFPAY ==
[2017-12-28 14:23] LABS: ALT 28 U/L (12-78); AST 29 U/L (15-37); Albumin 3.5 g/dL (3.4-5.0); Alkaline Phosphatase 122 U/L (46-116); Anion Gap 8.8 mmol/L (3-11); BUN 15 mg/dL (7-18); Bilirubin, Total 1.1 mg/dL (0.2-1.0); CO2 29.2 mmol/L (21.0-32.0); CREATININE 1.13 mg/dL (0.70-1.30); Calcium 8.7 mg/dL (8.5-10.1); Chloride 102 mmol/L (98-107); Glucose 106 mg/dL (70-100); Potassium 4.2 mmol/L (3.5-5.1); Sodium 140 mmol/L (136-145); Total Protein 6.4 g/dL (6.4-8.2)
[2017-12-31 09:14] LABS: Lacosamide 15.6 mcg/mL (1.0 - 10.0)
== END 2017-12-28 14:01 ==
LOC: LBN 13:41
PROVIDERS: PCP Nurse Practitioner; Visit Provider Student in an Organized Health Care Education/Training Program
DX: N39.0 Urinary tract infection, site not specified (principal); R56.9 Unspecified convulsions; Z51.81 Encounter for therapeutic drug level monitoring; Z79.899 Other long term (current) drug therapy
CPT/HCPCS: 80053; 80339

== ENCOUNTER → 2018-01-04 14:45 | Outpatient (BNVA) | payer MEDICARE, OTHER, SELFPAY | PROVIDERS: PCP Nurse Practitioner; Visit Provider Nurse Practitioner Gerontology | DX: R33.9 Retention of urine, unspecified (principal); Z87.440 Personal history of urinary (tract) infections; I12.9 Hypertensive chronic kidney disease with stage 1 through stage 4 chronic kidney disease, or unspecified chronic kidney disease; N18.9 Chronic kidney disease, unspecified; J44.9 Chronic obstructive pulmonary disease, unspecified; Z87.891 Personal history of nicotine dependence | CPT/HCPCS: 99204; 99215 ==

== ENCOUNTER 2018-02-08 16:15 | Outpatient (CLI) | payer MEDICARE, OTHER, SELFPAY ==
[2018-02-08 16:51] LABS: HCT 39.5 % (40.0-50.0); HGB 12.7 g/dL (13.5-17.5); Mean Corp. HGB Concentration 32.2 g/dL (32.0-36.0); Mean Corpuscular Hemoglobin 30.5 pg (27.0-33.0); Mean Corpuscular Volume 94.7 fL (80-95); Mean Platelet Volume 11.4 fL (8.0-11.0); Platelet Count 153 x1000/uL (130-400); RBC 4.17 m/cumm (4.50-6.00); RBC Distribution Width 15.6 % (11.8-14.1); White Blood Cell Count 5.26 k/cumm (4.4-10.8)
[2018-02-08 17:22] LABS: PTT Activated 23.9 sec (21.0-31.4); Prothrombin Time 10.1 sec (9.3-10.8)
[2018-02-08 17:35] LABS: ALT 55 U/L (12-78); AST 37 U/L (15-37); Albumin 3.6 g/dL (3.4-5.0); Alkaline Phosphatase 129 U/L (46-116); Anion Gap 10.1 mmol/L (3-11); BUN 17 mg/dL (7-18); Bilirubin, Total 0.7 mg/dL (0.2-1.0); CO2 24.9 mmol/L (21.0-32.0); CREATININE 1.36 mg/dL (0.70-1.30); Calcium 8.9 mg/dL (8.5-10.1); Chloride 104 mmol/L (98-107); Estimated GFR 51.09 (mL/min/1.73m2); Glucose 108 mg/dL (70-100); Potassium 4.5 mmol/L (3.5-5.1); Sodium 139 mmol/L (136-145); Total Protein 6.9 g/dL (6.4-8.2)
== END 2018-02-08 16:35 ==
PROVIDERS: PCP Nurse Practitioner; Visit Provider Nurse Practitioner
DX: K51.90 Ulcerative colitis, unspecified, without complications (principal); R33.9 Retention of urine, unspecified; N18.9 Chronic kidney disease, unspecified; I10 Essential (primary) hypertension; D50.9 Iron deficiency anemia, unspecified
CPT/HCPCS: 36415; 80053; 85027; 80339; 85610; 85730

== ENCOUNTER 2018-02-22 08:16 | Emergency (ER) | payer MEDICARE, OTHER, SELFPAY ==
[2018-02-22] VITALS (9 sets, daily range): BP systolic 114–121; BP diastolic 55–62; PULSE 78–95; RESP 14–28; TEMP 36.8; O2SAT 97–99
--- NOTE | 2018-02-22 08:42 | DI.CT_ITS ---
SYMPTOM/DIAGNOSIS: RECENT INTRACRANIAL HEMORRHAGE, ESTRADA, FATIGUE, DIZZY CRANIAL CT : 02/[address] was performed. The examination is compared with previous examination of 12/06/17 at which time there was noted a left subdural hematoma. On today's examination there is a left craniotomy and the patient has reportedly had evacuation of the previously noted subdural hematoma. The previously noted hematoma measured up to about 14 mm in thickness. The currently observed left subdural hematoma which is of intermediate attenuation suggesting reaccumulation since the previous craniotomy measures about 6-7 mm in greatest diameter. No definite midline shift seen. No additional intracranial findings. CONCLUSION: Recurrent left subdural hematoma post craniotomy.
--- NOTE | 2018-02-22 08:45 | W.ED.GENAD ---
Discharge Plan Disposition Patient Disposition: [facility] ([facility]) Discharge Details Chief Complaint: GenMedical Clinical Impression: Subdural hematoma, Thrombocytopenia, Hypomagnesemia Primary Care Provider: Sheeba Morelos ED Provider: Andrade Angel Home Meds and New Rx's Prescriptions: No Action budesonide-formoterol [Symbicort] 160-4.5 mcg/actuation HFA aerosol inhaler 1 puff Inhalation BID Qty: 3 RF: 3 cyanocobalamin (vitamin B-12) 1,000 mcg/mL solution 1,000 mcg IJ monthly Qty: 3 RF: 3 fluticasone 50 mcg/actuation spray,suspension 2 spray NS DAILY Qty: 48 RF: 3 pantoprazole 40 mg tablet,delayed release (DR/EC) 40 mg PO DAILY Qty: 90 RF: 3 hydrocortisone [Cortef] 5 mg tablet See Label Instructions PO BID Qty: 90 RF: 12 lacosamide 150 mg tablet 150 mg PO BID Qty: 60 RF: 3 fludrocortisone 0.1 MG tablet 0.15 mg PO DAILY Qty: 90 RF: 3 triamcinolone acetonide 15 GM cream 1 gr Topical BID Qty: 60 RF: 6 methotrexate sodium 2.5 MG tablet 15 mg PO as directed RF: 0 folic acid 1 MG tablet 2 mg PO DAILY RF: 0 montelukast 10 MG tablet 10 mg PO DAILY Qty: 90 RF: 3 denosumab [Prolia] 60 MG/1 ML syringe 60 mg SQ q6 months RF: 0 cholecalciferol (vitamin D3) 2,000 UNIT tablet 5,000 unit PO DAILY RF: 0 lidocaine [LC-5] 45 GM cream 1 film Topical 2-4 times daily PRN Qty: 1 RF: 0 needle (disp) 21 G [BD Regular Bevel Taylor] 1 EACH needle 1 ea Miscellaneous monthly Qty: 12 RF: 0 hydrocortisone [Cortef] 10 mg tablet 10 mg PO .COMPLEX RF: 0 citalopram 20 mg tablet 20 mg PO DAILY Qty: 90 RF: 3 epinephrine 0.3 MG/SYR auto-injector 0.3 mg Sub-Q PRN PRNRF: 0 acetaminophen 325 MG tablet 650 mg PO Q4H PRN PRNRF: 0 Discharge Data Discharge Date/Time-TO BE ENTERED AT DEPARTURE: 02/22/18 11:32 Medical Decision Making 10:00 --77-year-old male with multiple medical problems including recent subdural hematoma status post craniotomy for evacuation on 12/07/2017 at [facility], presents today with increasing fatigue, nausea, generalized weakness and dizziness with associated intermittent headaches. Neuro intact. Afebrile with no signs of infection. CT of the head was interpreted by radiology: New left-sided subdural hematoma 6 mm with no midline shift. ECG reviewed and interpreted by me: Normal sinus rhythm 81 bpm, RSR prime pattern, no STEMI, nondiagnostic, left axis deviation is noted. Labs reviewed: Magnesium is low. I will replete with 1 g IV. Patient is thrombocytopenic with platelets of 94. Brian to [facility] to talk with neurosurgery and request transfer. Awaiting return call. 11:15 --I spoke with Dr. Mejia the emergency physician at [facility] who takes calls for the neuro surgeon, he agrees the patient should be evaluated by neurosurgery and will accept the patient in transfer. Patient consents to transfer. Patient reassessed prior to transfer and has remained stable. HPI General Mode of arrival: ambulatory. Date/Time Provider Initiated Documentation: 02/22/18 08:31. Limitations to Documentation: no limitations. Information obtained by: patient. HPI Narrative: 77-year-old male with multiple medical problems including past medical history significant for ulcerative colitis, malignant neoplasm of the colon, status post colectomy with external colostomy, rheumatoid arthritis, chronic CHF, DVT, chronic kidney disease, atrial fibrillation, anemia and progressive thrombocytopenia, prostate adenocarcinoma, recent subdural hematoma that was evacuated with craniotomy at [facility] in 918, here with chief complaint of generally not feeling well. Patient notes over the past few days he has had progressive fatigue, nausea, and generalized weakness. He also notes dizziness and difficulty ambulating at times. Patient states he is not able to sleep. He tried a sleep aid last night at this did not help. He has no associated focal weakness or numbness or speech deficits. Patient does have intermittent headaches. He currently does not have a headache but had a headache earlier today. He denies visual changes. No trauma. No fever or neck stiffness. Related Data Home Medications Medication Instructions Recorded Confirmed epinephrine 0.3 mg SUB-Q PRN PRN 10/07/14 02/22/18 acetaminophen 650 mg PO Q4H PRN PRN 10/26/15 02/22/18 fludrocortisone 0.15 mg PO DAILY #90 tab-cap 03/17/16 02/22/18 triamcinolone acetonide 1 gr TOPICAL BID #60 gm 03/17/16 02/22/18 folic acid 2 mg PO DAILY 10/24/16 02/22/18 methotrexate sodium 15 mg PO as directed 10/24/16 02/22/18 montelukast 10 mg PO DAILY #90 tab-cap 01/03/17 02/22/18 denosumab [Prolia] 60 mg SQ q6 months 03/15/17 02/22/18 cholecalciferol (vitamin D3) 5,000 unit PO DAILY 04/19/17 02/22/18 lidocaine [Lc-5] 1 film TOPICAL 2-4 times daily PRN 09/06/17 02/22/18 #1 tube needle (disp) 21 G [Taylor] #12 ea 11/16/17 02/22/18 lacosamide 150 mg tablet 150 mg PO BID #60 tab 12/27/17 02/22/18 Cortef 5 mg tablet See Label Instructions PO BID #90 02/07/18 02/07/18 tab-cap NS budesonide-formoterol HFA 160 1 puff INHALATION BID #3 canister 02/07/18 02/22/18 mcg-4.5 mcg/actuation aerosol inhaler cyanocobalamin (vit B-12) 1,000 1,000 mcg IJ monthly #3 vial 02/07/18 02/22/18 mcg/mL injection solution fluticasone 50 mcg/actuation nasal 2 spray NS DAILY #48 gm 02/07/18 02/22/18 spray,suspension pantoprazole 40 mg tablet,delayed 40 mg PO DAILY #90 tab-cap 02/07/18 02/22/18 release hydrocortisone 10 mg tablet 10 mg PO .COMPLEX 02/08/18 02/22/18 citalopram 20 mg tablet 20 mg PO DAILY #90 tab 02/21/18 02/22/18 Previous Rx's Medication Instructions Recorded montelukast 10 mg PO DAILY #90 tab-cap 01/03/17 lidocaine [Lc-5] 1 film TOPICAL 2-4 times daily PRN 09/06/17 #1 tube needle (disp) 21 G [Taylor] #12 ea 11/16/17 lacosamide 150 mg tablet 150 mg PO BID #60 tab 12/27/17 Cortef 5 mg tablet See Label Instructions PO BID #90 02/07/18 tab-cap NS budesonide-formoterol HFA 160 1 puff INHALATION BID #3 canister 02/07/18 mcg-4.5 mcg/actuation aerosol inhaler cyanocobalamin (vit B-12) 1,000 1,000 mcg IJ monthly #3 vial 02/07/18 mcg/mL injection solution fluticasone 50 mcg/actuation nasal 2 spray NS DAILY #48 gm 02/07/18 spray,suspension pantoprazole 40 mg tablet,delayed 40 mg PO DAILY #90 tab-cap 02/07/18 release citalopram 20 mg tablet 20 mg PO DAILY #90 tab 02/21/18 Allergies Allergy/AdvReac Type Severity Reaction Status Date / Time latex Allergy Intermediate rash, Verified 02/22/18 08:29 itching plasma protein fraction Allergy Intermediate Hives Verified 02/22/18 08:29 acebutolol Allergy Unknown Verified 02/22/18 08:29 promethazine Allergy Unknown Verified 02/22/18 08:29 pseudoephedrine Allergy Unknown Verified 02/22/18 08:29 terazosin Allergy Unknown Verified 02/22/18 08:29 tramadol HCl [From Ultracet] Allergy Unknown Verified 02/22/18 08:29 venom-honey bee Allergy Verified 02/22/18 08:29 [bee venom (honey bee)] ferrous sulfate AdvReac Severe Stomach Verified 02/22/18 08:29 aches tamsulosin HCl [From Flomax] AdvReac Severe Dizziness/L Verified 02/22/18 08:29 ightheade Antihistamines - Alkylamine AdvReac Unknown affected Verified 02/22/18 08:29 prostate cefuroxime AdvReac Unknown daark urine Verified 02/22/18 08:29 plasma human Allergy Intermediate Hives Uncoded 02/22/18 08:29 General Stated Complaint: GenMedical SANTOSH: 3 Review of Systems Review of Systems All systems reviewed & are unremarkable except as noted in HPI and below PFSH Family History Mother Cerebrovascular accident Father No problems noted. Sister No problems noted. Brother No problems noted. Brother Diabetes ASCVD (arteriosclerotic cardiovascular disease) Brother No problems noted. Sister Diabetes Sister No problems noted. Other Arthritis Medical History Abdominal wall fistula CKD (chronic kidney disease) COPD (chronic obstructive pulmonary disease) Cholelithiasis Chronic deep vein thrombosis (DVT) Hypertension Ileostomy in place Ulcerative colitis Social History Smoking/Tobacco Use Status: Former Tobacco Use Surgical History Cholecystectomy (02/15/16) Extraction of cataract (07/28/16) Fracture, Closed Treatment (02/15/16) Total colectomy (09/25/97) Transurethral prostatectomy (11/24/14) cystoureteroscopy,lithotrypsy (05/11/15) hernia repair (04/08/99) proctectomy (11/23/98) repair retinal breaks (12/24/03) transsphenoidal hypophysectomy (11/15/93) Social History Smoking/Tobacco Use Status: Former Tobacco Use Exam Const General: cooperative and no acute distress HENMT Head: normocephalic, atraumatic and other (Healed craniotomy wound) Mouth: moist mucous membranes Eyes Conjunctivae: normal conjunctivae Sclera: normal sclerae EOM: EOM intact bilaterally Neck Neck: trachea midline and supple Resp Auscultation: clear to auscultation bilaterally, no rales, no rhonchi and no wheezes Cardio Jugular venous pressure: no JVD Rate: regular rate and not tachycardic Rhythm: regular rhythm GI Palpation: soft, not firm, no guarding, no masses, not rigid and nontender Skin General skin exam: no rashes or lesions noted Neuro General: alert, awake, oriented x3, tone normal and CN's II-XI intact bilaterally Cognition: normal cognition Speech: speech normal Motor: strength 5/5 throughout Sensory Exam: no sensory deficits noted Coordination: [id number] test normal Extrem General: no edema Psych Appearance: grossly normal Mental Status: mental status grossly normal Speech and Movement: speech and movement normal Course Vital Signs Temperature 36.8 C 02/22/18 08:21 Pulse 81 02/22/18 08:21 Respiratory Rate 14 02/22/18 08:21 Blood Pressure 121/62 02/22/18 08:21 Pulse Oximetry 99 02/22/18 08:21 Temperature 36.8 C 02/22/18 08:21 Temperature Source Temporal Artery Scan 02/22/18 08:21 Pulse 81 02/22/18 08:21 Respiratory Rate 14 02/22/18 08:21 Respiratory Effort Non-Labored 02/22/18 08:26 Blood Pressure 121/62 02/22/18 08:21 Blood Pressure Position Sitting 02/22/18 08:21 Pulse Oximetry 99 02/22/18 08:21 Oxygen Delivery Method Room Air 02/22/18 08:21 Oxygen Flow Rate 0 02/22/18 08:21 Pain Level 0 02/22/18 08:21
[2018-02-22] MEDS: Lactated Ringers 500 ML IV (09:15)
--- NOTE | 2018-02-22 09:32 | NUR.NOTE ---
to CT scan.
[2018-02-22 09:36] LABS: Abs Immature Grans 0.02 k/cumm (0.0-0.09); Absolute Basophil Count 0.01 k/cumm (0.0-0.2); Absolute Eosinophil Count 0.15 k/cumm (0.0-0.7); Absolute Lymphocyte Count 0.59 k/cumm (1.2-3.4); Absolute Monocyte Count 1.04 k/cumm (0.11-0.7); Absolute Neutrophil Count 5.04 k/cumm (1.2-6.7); Basophils % 0.1; Eosinophils % 2.2; HCT 40.7 % (40.0-50.0); HGB 13.3 g/dL (13.5-17.5); Immature Grans % 0.3; Lymphocytes % 8.6; Mean Corp. HGB Concentration 32.7 g/dL (32.0-36.0); Mean Corpuscular Hemoglobin 30.5 pg (27.0-33.0); Mean Corpuscular Volume 93.3 fL (80-95); Mean Platelet Volume 12.4 fL (8.0-11.0); Monocytes % 15.2; Neutrophils % 73.6; RBC 4.36 m/cumm (4.50-6.00); RBC Distribution Width 15.4 % (11.8-14.1); White Blood Cell Count 6.85 k/cumm (4.4-10.8)
[2018-02-22 09:44] LABS: Platelet Count 94 x1000/uL (130-400)
[2018-02-22 09:57] LABS: ALT 49 U/L (12-78); AST 50 U/L (15-37); Albumin 3.8 g/dL (3.4-5.0); Alkaline Phosphatase 126 U/L (46-116); BUN 17 mg/dL (7-18); Bilirubin, Total 1.9 mg/dL (0.2-1.0); CREATININE 1.39 mg/dL (0.70-1.30); Calcium 9.1 mg/dL (8.5-10.1); Chloride 98 mmol/L (98-107); Estimated GFR 49.82 (mL/min/1.73m2); Glucose 90 mg/dL (70-100); Magnesium 1.6 mg/dL (1.8-2.4); Potassium 3.7 mmol/L (3.5-5.1); Sodium 135 mmol/L (136-145)
[2018-02-22 09:58] LABS: Troponin I < 0.02 ng/mL (0.00-0.06)
--- NOTE | 2018-02-22 10:35 | NUR.NOTE ---
MD Angel updated pt. on brain bleed, this RN placed pt. on continuous 02 monitoring. Pt. is neuro intact, A/O X4.
[2018-02-22] MEDS: MAGNESIUM SULFATE 1 GM/100 ML BAG IVPB (10:39)
--- NOTE | 2018-02-22 11:03 | NUR.NOTE ---
Report called to Nicole at [facility].
--- NOTE | 2018-02-22 11:18 | NUR.NOTE ---
Pt. is speaking to his currently, report given to [facility] research intern.
--- NOTE | 2018-02-22 12:35 | PDOC.ERCMPRO ---
Care Management Progress Note JOSE ANTONIO spoke with Steffany-well known to this internal communications writer from previous admissions. Steffany reported she had been contacted by the ED and was aware that Liang was transferring to [facility]. She reported that his MD at [facility] had called this morning and reported that all of his findings from Liang's last appointment looked good and that he may be able to return to driving within a month if stability continued. Steffany reported feeling very shocked for this reason when receiving the call from the ED, but reported being thankful Liang was being treated and transferred. JOSE ANTONIO reviewed Liang's past worries about Steffany being home without him when in the hospital. She validated this information but reported feeling confident that she could manage at home at this time. JOSE ANTONIO reviewed contact information with Steffany if needs arise while Linag is at [facility].
--- NOTE | 2018-02-22 14:06 | CMPROGNOTE_ITS ---
Care Management Progress Note JOSE ANTONIO spoke with Steffany-well known to this screen writer from previous admissions. Steffany reported she had been contacted by the ED and was aware that Liang was transferring to [facility]. She reported that his MD at [facility] had called this morning and reported that all of his findings from Liang's last appointment looked good and that he may be able to return to driving within a month if stability continued. Steffany reported feeling very shocked for this reason when receiving the call from the ED, but reported being thankful Liang was being treated and transferred. JOSE ANTONIO reviewed Liang's past worries about Steffany being home without him when in the hospital. She validated this information but reported feeling confident that she could manage at home at this time. JOSE ANTONIO reviewed contact information with Steffany if needs arise while Liang is at [facility].
== END 2018-02-22 11:32 | disposition short-term general hospital (02) ==
PROVIDERS: Emergency Provider Student in an Organized Health Care Education/Training Program; PCP Nurse Practitioner
DX: I62.01 Nontraumatic acute subdural hemorrhage (principal); D69.6 Thrombocytopenia, unspecified; E83.42 Hypomagnesemia; J44.9 Chronic obstructive pulmonary disease, unspecified; Z87.891 Personal history of nicotine dependence; I12.9 Hypertensive chronic kidney disease with stage 1 through stage 4 chronic kidney disease, or unspecified chronic kidney disease; N18.9 Chronic kidney disease, unspecified
CPT/HCPCS: 36415; 80053; 93005; 96361; 96365; 99285; 70450; 83735; 84484; 85025; 93010; J3475

== ENCOUNTER 2018-03-05 18:06 | Emergency (ER) | payer MEDICARE, OTHER, SELFPAY ==
[2018-03-05] VITALS (35 sets, daily range): BP systolic 90–128; BP diastolic 55–73; PULSE 77–116; RESP 13–27; TEMP 36.7; O2SAT 96–100
--- NOTE | 2018-03-05 18:26 | DI.RAD_ITS ---
SYMPTOM/DIAGNOSIS: MALAISE, R/O PNEUMONIA AP AND LATERAL CHEST: Comparison is made with 03 Dec 2017. The heart is enlarged and the aorta tortuous, unchanged. The lungs are suboptimally inflated but grossly clear IMPRESSION: No acute abnormality.
--- NOTE | 2018-03-05 18:26 | DI.CT_ITS ---
SYMPTOM/DIAGNOSIS: WEAKNESS, H/O BRAIN TUMOR, R/O CVA/BLEED NONCONTRAST HEAD CT: Comparison is made with 22 Feb 2018. There has been no change in the small left subdural hematoma. The patient is again noted to be status post craniotomy. There is no significant midline shift. No new area of hemorrhage or infarct seen. The ventricles are unchanged in size. IMPRESSION: Stable small left subdural hematoma.
--- NOTE | 2018-03-05 18:53 | ED.GENADUL_ITS ---
Discharge Plan Disposition Patient Disposition: OTHER Condition: Stable Discharge Details Chief Complaint: GenMedical Clinical Impression: UTI (urinary tract infection), Dehydration, Hyperkalemia Primary Care Provider: Sheeba Morelos ED Provider: Sara Bartlett Home Meds and New Rx's Prescriptions: No Action budesonide-formoterol [Symbicort] 160-4.5 mcg/actuation HFA aerosol inhaler 1 puff Inhalation BID Qty: 3 RF: 3 cyanocobalamin (vitamin B-12) 1,000 mcg/mL solution 1,000 mcg IJ monthly Qty: 3 RF: 3 fluticasone 50 mcg/actuation spray,suspension 2 spray NS DAILY Qty: 48 RF: 3 pantoprazole 40 mg tablet,delayed release (DR/EC) 40 mg PO DAILY Qty: 90 RF: 3 hydrocortisone [Cortef] 5 mg tablet See Label Instructions PO BID Qty: 90 RF: 12 lacosamide 150 mg tablet 150 mg PO BID Qty: 60 RF: 3 fludrocortisone 0.1 MG tablet 0.15 mg PO DAILY Qty: 90 RF: 3 triamcinolone acetonide 15 GM cream 1 gr Topical BID Qty: 60 RF: 6 methotrexate sodium 2.5 MG tablet 15 mg PO as directed RF: 0 folic acid 1 MG tablet 2 mg PO DAILY RF: 0 montelukast 10 MG tablet 10 mg PO DAILY Qty: 90 RF: 3 denosumab [Prolia] 60 MG/1 ML syringe 60 mg SQ q6 months RF: 0 cholecalciferol (vitamin D3) 2,000 UNIT tablet 5,000 unit PO DAILY RF: 0 lidocaine [LC-5] 45 GM cream 1 film Topical 2-4 times daily PRN Qty: 1 RF: 0 needle (disp) 21 G [BD Regular Bevel [place]] 1 EACH needle 1 ea Miscellaneous monthly Qty: 12 RF: 0 hydrocortisone [Cortef] 10 mg tablet 10 mg PO .COMPLEX RF: 0 citalopram 20 mg tablet 20 mg PO DAILY Qty: 90 RF: 3 epinephrine 0.3 MG/SYR auto-injector 0.3 mg Sub-Q PRN PRNRF: 0 acetaminophen 325 MG tablet 650 mg PO Q4H PRN PRNRF: 0 Medical Decision Making 77yo M w/ a h/o recent subdural hematoma s/p craniotomy 12/07/17 at [facility] who presents with generalized weakness, fatigue, decreased appetite and decreased p.o. intake over the past 3 weeks. Denies fever, vomiting, diarrhea, chest pain of breath or abdominal pain. Patient admits to legs giving out upon standing today but denies any dizziness or injury. Denies head injury. Vitals within normal limits. Patient appears nontoxic and in no acute distress. Lungs clear to auscultation. Abdomen soft and nontender. No focal deficits. No lower extremity edema. Differential diagnosis includes CVA, electrolyte abnormality, UTI, pneumonia, dehydration, ACS. Will place an IV, bolus IV fluids, labs, urinalysis, chest x- ray, CT head. EKG notes a rate of 86, sinus, no acute ST elevation or depression, QTC 411. QRS 96. 1999 --labs and imaging reviewed. Normal white blood cell count and hemoglobin. Potassium 5.2. Anion gap 12.3. Creatinine 1.67. Lactate 1.8. Magnesium 1.6. Troponin negative. Urinalysis notes greater than 50 WBCs, moderate leukocyte esterase, negative nitrite, small blood. Urine culture sent. Chest x-ray negative. CT head notes previously seen subacute left subdural hematoma which is decreased in prominence, no midline shift, no new hemorrhage or infarction. Will continue IV fluids and give a dose of Rocephin. There are no beds available here. Will call area hospitals for plan for transfer for admission for IV fluids, IV antibiotics and monitoring of electrolytes. Will attempt to reach [facility] neurosurgery to evaluate CT. 2029 -- discussed with [facility] - only accepting critical patients at this time. 2044 -- d/w [facility] Jenny Sinclair - accepts pt for transfer. Notified that not yet heard from neurosurgery but that CT improved compared to previous. 2329 -- d/w [facility] neurosurgery - will review CT and call back once images available. 2299 -- notified oncoming ED physician that [facility] will call back once they review CT. Medical Records Medical records reviewed: Yes I reviewed the patient's medical records. Imaging Data Radiologic Study: Radiologist's impression: CT Head Without Contrast EXAM DATE/TIME: 03/05/2018 6:[address] HEAD WO 02/22/2018 9:37 AM FINDINGS: Left parietal craniotomy is then but grossly stable Subdural collections/hematoma subjacent to the craniotomy site and extending into the left frontal region mildly decreased in prominence measuring up to 6 m in thickness with minimal adjacent mass effect. No midline shift hydrocephalus or acute infarction. Minimal mucosal thickening in the frontal sinuses/anterior ethmoid air cells IMPRESSION: Presumed subacute left subdural hematoma, decreased in prominence as noted. Continued CT clinically indicated No new hemorrhage detected Radiologic Study #2: Radiologist's impression: XR Chest, 2 Views EXAM DATE/TIME: 03/05/2018 6:28 PM FINDINGS: Mildly limited due to positioning Lungs: Mild chronic interstitial prominence No consolidation. Pleural space: No pleural effusion. No pneumothorax. Heart/Mediastinum: Unremarkable. No cardiomegaly. Bones/joints: Unremarkable. IMPRESSION: No acute findings. Lab Data Lab results reviewed: Yes I reviewed the patient's lab results. 03/05/18 19:17 Urine - Reflex from Ua Urine Culture - Pending Laboratory Tests Range/Units 03/05/18 03/05/18 03/05/18 16:40 16:40 16:40 WBC (4.4-10.8) k/cumm 7.10 RBC (4.50-6.00) m/cumm 4.36 L Hgb (13.5-17.5) g/dL 13.2 L Hct (40.0-50.0) % 39.6 L MCV (80-95) fL 90.8 MCH (27.0-33.0) pg 30.3 MCHC (32.0-36.0) g/dL 33.3 RDW (11.8-14.1) % 15.2 H Plt Count (130-400) x1000/uL 205 D MPV (8.0-11.0) fL 12.2 H Immature Gran % 0.0 Neutrophils % 70.0 Lymphocytes % 14.0 Monocytes % 12.0 Eosinophils % 2.0 Basophils % 0.0 Absolute Neutrophils (1.2-6.7) k/cumm 4.97 Band Neutrophils % 0.0 Absolute Lymphocytes (1.2-3.4) k/cumm 1.14 L Absolute Monocytes (0.11-0.7) k/cumm 0.85 H Absolute Eosinophils (0.0-0.7) k/cumm 0.14 Absolute Basophils (0.0-0.2) k/cumm 0.00 Differential Comment Manual differential Atypical Lymphocytes 2 RBC Morphology Normal Sodium (136-145) mmol/L 133 L Potassium (3.5-5.1) mmol/L 5.2 H Chloride (98-107) mmol/L 96 L Carbon Dioxide (21.0-32.0) mmol/L 24.7 Anion Gap (3-11) mmol/L 12.3 H BUN (7-18) mg/dL 36 H Creatinine (0.70-1.30) mg/dL 1.67 H Estimated GFR/1.73 m2 (mL/min/1.73m2) 40.31 Glucose (70-100) mg/dL 100 Lactate (0.6-1.4) mmol/L 1.8 H Calcium (8.5-10.1) mg/dL 9.9 Magnesium (1.8-2.4) mg/dL 1.6 L Total Bilirubin (0.2-1.0) mg/dL 0.9 AST (15-37) U/L 100 H ALT (12-78) U/L 126 H Alkaline Phosphatase (46-116) U/L 161 H Troponin I (0.00-0.06) ng/mL < 0.02 Total Protein (6.4-8.2) g/dL 8.2 Albumin (3.4-5.0) g/dL 3.6 Lipase (73-393) U/L 261 Urine Color (Yellow) Urine Clarity Urine pH (5-8) Ur Specific Sparks (1.005-1.025) Urine Protein (Negative) mg/dL Urine Ketones (Negative) mg/dL Urine Blood (Negative) Urine Nitrite (Negative) Urine Bilirubin (Negative) Urine Urobilinogen (Up TO 0.2) EU/dL Ur Leukocyte Esterase (Negative) Urine RBC (0-2) Urine WBC (0-5) HPF Ur Epithelial Cells (Negative) HPF Urine Crystals (Negative) HPF Urine Bacteria (Negative) HPF Urine Casts (Negative) LPF Urine Mucus (Negative) Urine Other (Negative) Ur Culture Indicated? Urine Glucose (Negative) mg/dL Range/Units 03/05/18 19:17 WBC (4.4-10.8) k/cumm RBC (4.50-6.00) m/cumm Hgb (13.5-17.5) g/dL Hct (40.0-50.0) % MCV (80-95) fL MCH (27.0-33.0) pg MCHC (32.0-36.0) g/dL RDW (11.8-14.1) % Plt Count (130-400) x1000/uL MPV (8.0-11.0) fL Immature Gran % Neutrophils % Lymphocytes % Monocytes % Eosinophils % Basophils % Absolute Neutrophils (1.2-6.7) k/cumm Band Neutrophils % Absolute Lymphocytes (1.2-3.4) k/cumm Absolute Monocytes (0.11-0.7) k/cumm Absolute Eosinophils (0.0-0.7) k/cumm Absolute Basophils (0.0-0.2) k/cumm Differential Comment Atypical Lymphocytes RBC Morphology Sodium (136-145) mmol/L Potassium (3.5-5.1) mmol/L Chloride (98-107) mmol/L Carbon Dioxide (21.0-32.0) mmol/L Anion Gap (3-11) mmol/L BUN (7-18) mg/dL Creatinine (0.70-1.30) mg/dL Estimated GFR/1.73 m2 (mL/min/1.73m2) Glucose (70-100) mg/dL Lactate (0.6-1.4) mmol/L Calcium (8.5-10.1) mg/dL Magnesium (1.8-2.4) mg/dL Total Bilirubin (0.2-1.0) mg/dL AST (15-37) U/L ALT (12-78) U/L Alkaline Phosphatase (46-116) U/L Troponin I (0.00-0.06) ng/mL Total Protein (6.4-8.2) g/dL Albumin (3.4-5.0) g/dL Lipase (73-393) U/L Urine Color (Yellow) Yellow Urine Clarity Cloudy Urine pH (5-8) 5.5 Ur Specific Sparks (1.005-1.025) 1.020 Urine Protein (Negative) mg/dL 30 H Urine Ketones (Negative) mg/dL Negative Urine Blood (Negative) Small H Urine Nitrite (Negative) Negative Urine Bilirubin (Negative) Negative Urine Urobilinogen (Up TO 0.2) EU/dL 0.2 Ur Leukocyte Esterase (Negative) Moderate H Urine RBC (0-2) Negative Urine WBC (0-5) HPF >50 Ur Epithelial Cells (Negative) HPF Negative Urine Crystals (Negative) HPF Negative Urine Bacteria (Negative) HPF Few Urine Casts (Negative) LPF Negative Urine Mucus (Negative) Negative Urine Other (Negative) Negative Ur Culture Indicated? Yes Urine Glucose (Negative) mg/dL Negative HPI General Mode of arrival: EMS . Date/Time Provider Initiated Documentation: 03/05/18 18:23 . Limitations to Documentation: no limitations . Information obtained by: patient . HPI Narrative: Pt is a 77yo M w/ a h/o recent subdural hematoma s/p partial craniotomy 12/07/17 at [facility], CKD, HTN, COPD, colon cancer s/p total colectomy who presents to the ED w/ a c/o generalized weakness and fatigue, decreased appetite and PO intake since thanksgiving for the past few weeks. Pt states today he stood up from a chair and his legs gave out due to weakness and he fell to the ground. Patient denies any injury with this fall and he denies any pain. He denies head injury, LOC, vomiting. Patient denies any recent fever, chest pain, shortness of breath, abdominal pain, vomiting or diarrhea. Patient states he was transferred from here 2 weeks ago to [facility] for a brain bleed but he states he was sent home from the emergency department as the doctors thought his CT was stable. Related Data Home Medications Medication Instructions Recorded Confirmed epinephrine 0.3 mg SUB-Q PRN PRN 10/07/14 03/05/18 acetaminophen 650 mg PO Q4H PRN PRN 10/26/15 03/05/18 fludrocortisone 0.15 mg PO DAILY #90 tab-cap 03/17/16 03/05/18 triamcinolone acetonide 1 gr TOPICAL BID #60 gm 03/17/16 03/05/18 folic acid 2 mg PO DAILY 10/24/16 03/05/18 methotrexate sodium 15 mg PO as directed 10/24/16 03/05/18 montelukast 10 mg PO DAILY #90 tab-cap 01/03/17 03/05/18 denosumab [Prolia] 60 mg SQ q6 months 03/15/17 03/05/18 cholecalciferol (vitamin D3) 5,000 unit PO DAILY 04/19/17 03/05/18 lidocaine [Lc-5] 1 film TOPICAL 2-4 times daily PRN 09/06/17 03/05/18 #1 tube needle (disp) 21 G [[place]] #12 ea 11/16/17 02/22/18 lacosamide 150 mg tablet 150 mg PO BID #60 tab 12/27/17 03/05/18 Cortef 5 mg tablet See Label Instructions PO BID #90 02/07/18 02/07/18 tab-cap NS budesonide-formoterol HFA 160 1 puff INHALATION BID #3 canister 02/07/18 mcg-4.5 mcg/actuation aerosol inhaler cyanocobalamin (vit B-12) 1,000 1,000 mcg IJ monthly #3 vial 02/07/18 03/05/18 mcg/mL injection solution fluticasone 50 mcg/actuation nasal 2 spray NS DAILY #48 gm 02/07/18 03/05/18 spray,suspension pantoprazole 40 mg tablet,delayed 40 mg PO DAILY #90 tab-cap 02/07/18 03/05/18 release hydrocortisone 10 mg tablet 10 mg PO .COMPLEX 02/08/18 03/05/18 citalopram 20 mg tablet 20 mg PO DAILY #90 tab 02/21/18 03/05/18 Previous Rx's Medication Instructions Recorded montelukast 10 mg PO DAILY #90 tab-cap 01/03/17 lidocaine [Lc-5] 1 film TOPICAL 2-4 times daily PRN 09/06/17 #1 tube needle (disp) 21 G [[place]] #12 ea 11/16/17 lacosamide 150 mg tablet 150 mg PO BID #60 tab 12/27/17 Cortef 5 mg tablet See Label Instructions PO BID #90 02/07/18 tab-cap NS budesonide-formoterol HFA 160 1 puff INHALATION BID #3 canister 02/07/18 mcg-4.5 mcg/actuation aerosol inhaler cyanocobalamin (vit B-12) 1,000 1,000 mcg IJ monthly #3 vial 02/07/18 mcg/mL injection solution fluticasone 50 mcg/actuation nasal 2 spray NS DAILY #48 gm 02/07/18 spray,suspension pantoprazole 40 mg tablet,delayed 40 mg PO DAILY #90 tab-cap 02/07/18 release citalopram 20 mg tablet 20 mg PO DAILY #90 tab 02/21/18 Allergies Allergy/AdvReac Type Severity Reaction Status Date / Time latex Allergy Intermediate rash, Verified 03/05/18 18:20 itching plasma protein fraction Allergy Intermediate Hives Verified 03/05/18 18:20 acebutolol Allergy Unknown Verified 03/05/18 18:20 promethazine Allergy Unknown Verified 03/05/18 18:20 pseudoephedrine Allergy Unknown Verified 03/05/18 18:20 terazosin Allergy Unknown Verified 03/05/18 18:20 tramadol HCl [From Ultracet] Allergy Unknown Verified 03/05/18 18:20 venom-honey bee Allergy Verified 03/05/18 18:20 [bee venom (honey bee)] ferrous sulfate AdvReac Severe Stomach Verified 03/05/18 18:20 aches tamsulosin HCl [From Flomax] AdvReac Severe Dizziness/L Verified 03/05/18 18:20 ightheade Antihistamines - Alkylamine AdvReac Unknown affected Verified 03/05/18 18:20 prostate cefuroxime AdvReac Unknown daark urine Verified 03/05/18 18:20 plasma human Allergy Intermediate Hives Uncoded 03/05/18 18:20 General Stated Complaint: GenMedical SANTOSH: 2 Review of Systems Review of Systems All systems reviewed & are unremarkable except as noted in HPI and below Constitutional Reports as per HPI, Denies chills, Denies fever(s), Reports malaise, Reports poor appetite and Reports weakness Eyes Denies blurry vision ENT Denies dizziness, Denies sore throat and Denies throat swelling Cardiovascular Denies chest pain and Denies dyspnea Respiratory Denies dyspnea Gastrointestinal Denies abdominal pain, Denies diarrhea and Denies vomiting Genitourinary Denies hematuria and Denies dysuria Musculoskeletal Denies back pain and Denies numbness Integumentary/Breasts Denies lesions and Denies rash Neurologic Denies dizziness, Denies numbness and Reports weakness Allergic/Immunologic Denies throat swelling PFSH Abdominal wall fistula CKD (chronic kidney disease) COPD (chronic obstructive pulmonary disease) Cholelithiasis Chronic deep vein thrombosis (DVT) Hypertension Ileostomy in place Ulcerative colitis Family History Mother Stroke Father No problems noted. Sister No problems noted. Brother No problems noted. Brother Diabetes ASCVD (arteriosclerotic cardiovascular disease) Brother No problems noted. Sister Diabetes Sister No problems noted. Other Arthritis Cholecystectomy (02/15/16) Extraction of cataract (07/28/16) Fracture, Closed Treatment (02/15/16) Total colectomy (09/25/97) Transurethral prostatectomy (11/24/14) cystoureteroscopy,lithotrypsy (05/11/15) hernia repair (04/08/99) proctectomy (11/23/98) repair retinal breaks (12/24/03) transsphenoidal hypophysectomy (11/15/93) Family History Mother Stroke Father No problems noted. Sister No problems noted. Brother No problems noted. Brother Diabetes ASCVD (arteriosclerotic cardiovascular disease) Brother No problems noted. Sister Diabetes Sister No problems noted. Other Arthritis Medical History Abdominal wall fistula CKD (chronic kidney disease) COPD (chronic obstructive pulmonary disease) Cholelithiasis Chronic deep vein thrombosis (DVT) Hypertension Ileostomy in place Ulcerative colitis Social History Smoking/Tobacco Use Status: Former Tobacco Use Surgical History Cholecystectomy (02/15/16) Extraction of cataract (07/28/16) Fracture, Closed Treatment (02/15/16) Total colectomy (09/25/97) Transurethral prostatectomy (11/24/14) cystoureteroscopy,lithotrypsy (05/11/15) hernia repair (04/08/99) proctectomy (11/23/98) repair retinal breaks (12/24/03) transsphenoidal hypophysectomy (11/15/93) Social History Smoking/Tobacco Use Status: Former Tobacco Use alcohol intake: never substance use type: does not use Exam Const General: cooperative, healthy appearing and no acute distress HENMT Head: normal to inspection Mouth: oral mucosae normal Eyes General: appearance normal, both eyes and all related structures Pupils: PERRL EOM: EOM intact bilaterally Neck Neck: normal visual inspection Resp Effort & Inspection: normal respiratory effort and able to speak in complete sentences Cardio Rate: regular rate Rhythm: regular rhythm GI Inspection: normal to inspection and other (Ileostomy bag left lower quadrant) Palpation: soft, not firm and nontender Auscultation: normal bowel sounds Back/Spine/Pelvis Back: no CVA tenderness Thoracic/Lumbar Spine: thoracic and lumbar spine normal to inspection Skin General skin exam: no rashes or lesions noted Neuro General: alert, awake and oriented x3 Cranial Nerves: CN's II-XI intact bilaterally Motor: muscle tone normal throughout and strength 5/5 throughout Sensory Exam: no sensory deficits noted Extrem General: normal to inspection, full ROM and no edema Psych Appearance: grossly normal Affect: normal affect Course Vital Signs Temperature 98.1 F 03/05/18 18:15 Pulse 94 H 03/05/18 18:15 Respiratory Rate 22 03/05/18 18:15 Blood Pressure 115/58 L 03/05/18 18:15 Pulse Oximetry 98 03/05/18 18:15 Temperature 98.1 F 03/05/18 18:15 Temperature Source Temporal Artery Scan 03/05/18 18:15 Pulse 94 H 03/05/18 18:15 Respiratory Rate 22 03/05/18 18:15 Respiratory Effort Non-Labored 03/05/18 18:30 Blood Pressure 115/58 L 03/05/18 18:15 Blood Pressure Position Sitting 03/05/18 18:15 Pulse Oximetry 98 03/05/18 18:15 Oxygen Delivery Method Room Air 03/05/18 18:15 Oxygen Flow Rate 0 03/05/18 18:15 Pain Level 0 03/05/18 18:15
[2018-03-05 18:58] LABS: Lactate-non-spesis 1.8 mmol/L (0.6-1.4)
[2018-03-05 18:59] LABS: Abs Immature Grans 0.02 k/cumm (0.0-0.09); HCT 39.6 % (40.0-50.0); HGB 13.2 g/dL (13.5-17.5); Mean Corp. HGB Concentration 33.3 g/dL (32.0-36.0); Mean Corpuscular Hemoglobin 30.3 pg (27.0-33.0); Mean Corpuscular Volume 90.8 fL (80-95); Mean Platelet Volume 12.2 fL (8.0-11.0); Platelet Count 205 x1000/uL (130-400); RBC 4.36 m/cumm (4.50-6.00); RBC Distribution Width 15.2 % (11.8-14.1)
[2018-03-05] MEDS: Normal Saline 250 ML 500 ML IV (19:22)
--- NOTE | 2018-03-05 19:22 | DI.VRAD_ITS ---
EXAM: XR Chest, 2 Views EXAM DATE/TIME: 03/05/2018 6:28 PM CLINICAL HISTORY: 77 years old, male; Signs and symptoms; Other: Malaise TECHNIQUE: XR of the chest, 2 views. COMPARISON: CR XR CHEST 2V PA LATERAL 12/03/2017 10:10 AM FINDINGS: Mildly limited due to positioning Lungs: Mild chronic interstitial prominence No consolidation. Pleural space: No pleural effusion. No pneumothorax. Heart/Mediastinum: Unremarkable. No cardiomegaly. Bones/joints: Unremarkable. IMPRESSION: No acute findings. Dictated and Authenticated by: Alireza Nielsen MD. Ordering:VÍCTOR WADSWORTH MD
--- NOTE | 2018-03-05 19:22 | DI.VRAD_ITS ---
EXAM: CT Head Without Contrast EXAM DATE/TIME: 03/05/2018 6:28 PM CLINICAL HISTORY: 77 years old, male; Signs and symptoms; Other: Weakness, HX of brain tumor, rule out cva/bleed; Prior surgery TECHNIQUE: Axial computed tomography images of the head/brain without contrast. Coronal and sagittal reformatted images were created and reviewed. COMPARISON: CT HEAD WO 02/22/2018 9:37 AM FINDINGS: Left parietal craniotomy is then but grossly stable Subdural collections/hematoma subjacent to the craniotomy site and extending into the left frontal region mildly decreased in prominence measuring up to 6 m in thickness with minimal adjacent mass effect. No midline shift hydrocephalus or acute infarction. Minimal mucosal thickening in the frontal sinuses/anterior ethmoid air cells IMPRESSION: Presumed subacute left subdural hematoma, decreased in prominence as noted. Continued CT clinically indicated No new hemorrhage detected Dictated and Authenticated by: Alireza Nielsen MD. Ordering:VÍCTOR WADSWORTH MD
[2018-03-05 19:23] LABS: Bilirubin Negative (Negative); Blood Small (Negative); Clarity Cloudy; Glucose Negative (Negative); Ketones Negative (Negative); Leukocyte Esterase Moderate (Negative); Nitrite Negative (Negative); Urobilinogen 0.2 EU/dL (Up TO 0.2); pH 5.5 (5-8)
[2018-03-05 19:32] LABS: ALT 126 U/L (12-78); AST 100 U/L (15-37); Absolute Eosinophil Count 0.14 k/cumm (0.0-0.7); Absolute Lymphocyte Count 1.14 k/cumm (1.2-3.4); Absolute Monocyte Count 0.85 k/cumm (0.11-0.7); Absolute Neutrophil Count 4.97 k/cumm (1.2-6.7); Albumin 3.6 g/dL (3.4-5.0); Alkaline Phosphatase 161 U/L (46-116); Anion Gap 12.3 mmol/L (3-11); Atypical Lymphocytes % 2; BUN 36 mg/dL (7-18); Bilirubin, Total 0.9 mg/dL (0.2-1.0); CO2 24.7 mmol/L (21.0-32.0); CREATININE 1.67 mg/dL (0.70-1.30); Calcium 9.9 mg/dL (8.5-10.1); Chloride 96 mmol/L (98-107); Estimated GFR 40.31 (mL/min/1.73m2); Glucose 100 mg/dL (70-100); Lipase 261 U/L (73-393); Magnesium 1.6 mg/dL (1.8-2.4); Potassium 5.2 mmol/L (3.5-5.1); Sodium 133 mmol/L (136-145); Total Protein 8.2 g/dL (6.4-8.2)
[2018-03-05 19:32] LABS: Bacteria Few HPF (Negative); C & S Indicated? Yes; Casts Negative LPF (Negative); Crystals Negative HPF (Negative); Epithelial Cells Negative HPF (Negative); Mucus Negative (Negative); Other Cells Negative (Negative); RBC Negative (0-2); WBC >50 HPF (0-5)
[2018-03-05 19:33] LABS: Diff Comment Manual Differential; RBC Morphology Normal
[2018-03-05 19:34] LABS: Troponin I < 0.02 ng/mL (0.00-0.06)
== END 2018-03-05 23:48 | disposition other institution (70) ==
PROVIDERS: Emergency Provider Physician Assistant; PCP Nurse Practitioner
DX: N39.0 Urinary tract infection, site not specified (principal); E86.0 Dehydration; E87.5 Hyperkalemia; J44.9 Chronic obstructive pulmonary disease, unspecified; Z87.891 Personal history of nicotine dependence; I12.9 Hypertensive chronic kidney disease with stage 1 through stage 4 chronic kidney disease, or unspecified chronic kidney disease; N18.9 Chronic kidney disease, unspecified
CPT/HCPCS: 36415; 80053; 83690; 96361; 96365; 99285; 70450; 71046; 81003; 81015; 83605; 83735; 84484; 85025; 87086; J0696

== ENCOUNTER 2018-03-08 05:47 | Observation (INO) | payer MEDICARE, OTHER, SELFPAY ==
[2018-03-08] VITALS (44 sets, daily range): BP systolic 105–144; BP diastolic 52–73; PULSE 69–85; RESP 12–33; TEMP 36.6–36.8; O2SAT 94–99
--- NOTE | 2018-03-08 06:34 | W.ED.GENAD ---
Discharge Plan Disposition Patient Disposition: STILL A PATIENT Condition: Stable Discharge Details Clinical Impression: General weakness Reason For Visit: JENNYEX Primary Care Provider: Sheeba Morelos ED Provider: Sixto Hannon Home Meds and New Rx's Prescriptions: No Action budesonide-formoterol [Symbicort] 160-4.5 mcg/actuation HFA aerosol inhaler 1 puff Inhalation BID Qty: 3 RF: 3 cyanocobalamin (vitamin B-12) 1,000 mcg/mL solution 1,000 mcg IJ monthly Qty: 3 RF: 3 fluticasone 50 mcg/actuation spray,suspension 2 spray NS DAILY Qty: 48 RF: 3 pantoprazole 40 mg tablet,delayed release (DR/EC) 40 mg PO DAILY Qty: 90 RF: 3 hydrocortisone [Cortef] 5 mg tablet See Rx Instructions PO BID Qty: 90 RF: 12 lacosamide 150 mg tablet 150 mg PO BID Qty: 60 RF: 3 fludrocortisone 0.1 MG tablet 0.15 mg PO DAILY Qty: 90 RF: 3 triamcinolone acetonide 15 GM cream 1 gr Topical BID Qty: 60 RF: 6 methotrexate sodium 2.5 MG tablet 15 mg PO as directed RF: 0 folic acid 1 MG tablet 2 mg PO DAILY RF: 0 montelukast 10 MG tablet 10 mg PO DAILY Qty: 90 RF: 3 denosumab [Prolia] 60 MG/1 ML syringe 60 mg SQ q6 months RF: 0 cholecalciferol (vitamin D3) 2,000 UNIT tablet 5,000 unit PO DAILY RF: 0 lidocaine [LC-5] 45 GM cream 1 film Topical 2-4 times daily PRN Qty: 1 RF: 0 needle (disp) 21 G [BD Regular Bevel [place]] 1 EACH needle 1 ea Miscellaneous monthly Qty: 12 RF: 0 hydrocortisone [Cortef] 10 mg tablet 10 mg PO .COMPLEX RF: 0 citalopram 20 mg tablet 20 mg PO DAILY Qty: 90 RF: 3 epinephrine 0.3 MG/SYR auto-injector 0.3 mg Sub-Q PRN PRNRF: 0 acetaminophen 325 MG tablet 650 mg PO Q4H PRN PRNRF: 0 Medical Decision Making 77 yo male who was d/c'd from [facility] yesterday after being admitted for general weakness and uti comes in with cc of I need to go to rehab. He states he lives with his and she can't provide the care that he needs so he called ems and was brought here. HE states he has felt general weakness and feels deconditioned for about a week. Denies fevers, has no focal neuro deficits on exam, no fevers, hd stable. Suspect deconditioning from recent illness, will eval for anemia and electrolyte abnormalities and if none found will consult case management about placement labs unremarkable, remains stable. STill no focal neuro deficits, pat will be signed out pending case management review for placement Differential Diagnosis electrolyte abnormality, anemia, uti Lab Data Lab results reviewed: Yes I reviewed the patient's lab results. HPI General Mode of arrival: EMS. Date/Time Provider Initiated Documentation: 03/08/18 06:33. Limitations to Documentation: no limitations. Information obtained by: patient. History of Present Illness 77 year old M presents to the emergency department with the chief complaint of general weakness, described as moderate, with intensity rated at 4. Patient reports no radiation. Patient started experiencing this week(s) (1) No relieving factors improve symptom(s), No exacerbating factors reported . Patient did receive the following treatments prior to arrival, none Related Data Home Medications Medication Instructions Recorded Confirmed epinephrine 0.3 mg SUB-Q PRN PRN 10/07/14 03/05/18 acetaminophen 650 mg PO Q4H PRN PRN 10/26/15 03/05/18 fludrocortisone 0.15 mg PO DAILY #90 tab-cap 03/17/16 03/05/18 triamcinolone acetonide 1 gr TOPICAL BID #60 gm 03/17/16 03/05/18 folic acid 2 mg PO DAILY 10/24/16 03/05/18 methotrexate sodium 15 mg PO as directed 10/24/16 03/05/18 montelukast 10 mg PO DAILY #90 tab-cap 01/03/17 03/05/18 denosumab [Prolia] 60 mg SQ q6 months 03/15/17 03/05/18 cholecalciferol (vitamin D3) 5,000 unit PO DAILY 04/19/17 03/05/18 lidocaine [Lc-5] 1 film TOPICAL 2-4 times daily PRN 09/06/17 03/05/18 #1 tube needle (disp) 21 G [[place]] #12 ea 11/16/17 02/22/18 lacosamide 150 mg tablet 150 mg PO BID #60 tab 12/27/17 03/05/18 Cortef 5 mg tablet See Rx Instructions PO BID #90 02/07/18 02/07/18 tab-cap NS budesonide-formoterol HFA 160 1 puff INHALATION BID #3 canister 02/07/18 03/05/18 mcg-4.5 mcg/actuation aerosol inhaler cyanocobalamin (vit B-12) 1,000 1,000 mcg IJ monthly #3 vial 02/07/18 03/05/18 mcg/mL injection solution fluticasone 50 mcg/actuation nasal 2 spray NS DAILY #48 gm 02/07/18 03/05/18 spray,suspension pantoprazole 40 mg tablet,delayed 40 mg PO DAILY #90 tab-cap 02/07/18 03/05/18 release hydrocortisone 10 mg tablet 10 mg PO .COMPLEX 02/08/18 03/05/18 citalopram 20 mg tablet 20 mg PO DAILY #90 tab 02/21/18 03/05/18 Previous Rx's Medication Instructions Recorded montelukast 10 mg PO DAILY #90 tab-cap 01/03/17 lidocaine [Lc-5] 1 film TOPICAL 2-4 times daily PRN 09/06/17 #1 tube needle (disp) 21 G [[place]] #12 ea 11/16/17 lacosamide 150 mg tablet 150 mg PO BID #60 tab 12/27/17 Cortef 5 mg tablet See Rx Instructions PO BID #90 02/07/18 tab-cap NS budesonide-formoterol HFA 160 1 puff INHALATION BID #3 canister 02/07/18 mcg-4.5 mcg/actuation aerosol inhaler cyanocobalamin (vit B-12) 1,000 1,000 mcg IJ monthly #3 vial 02/07/18 mcg/mL injection solution fluticasone 50 mcg/actuation nasal 2 spray NS DAILY #48 gm 02/07/18 spray,suspension pantoprazole 40 mg tablet,delayed 40 mg PO DAILY #90 tab-cap 02/07/18 release citalopram 20 mg tablet 20 mg PO DAILY #90 tab 02/21/18 Allergies Allergy/AdvReac Type Severity Reaction Status Date / Time latex Allergy Intermediate rash, Verified 03/05/18 18:20 itching plasma protein fraction Allergy Intermediate Hives Verified 03/05/18 18:20 acebutolol Allergy Unknown Verified 03/05/18 18:20 promethazine Allergy Unknown Verified 03/05/18 18:20 pseudoephedrine Allergy Unknown Verified 03/05/18 18:20 terazosin Allergy Unknown Verified 03/05/18 18:20 tramadol HCl [From Ultracet] Allergy Unknown Verified 03/05/18 18:20 venom-honey bee Allergy Verified 03/05/18 18:20 [bee venom (honey bee)] ferrous sulfate AdvReac Severe Stomach Verified 03/05/18 18:20 aches tamsulosin HCl [From Flomax] AdvReac Severe Dizziness/L Verified 03/05/18 18:20 ightheade Antihistamines - Alkylamine AdvReac Unknown affected Verified 03/05/18 18:20 prostate cefuroxime AdvReac Unknown daark urine Verified 03/05/18 18:20 plasma human Allergy Intermediate Hives Uncoded 12 18:20 General SANTOSH: 2 Review of Systems Review of Systems All systems reviewed & are unremarkable except as noted in HPI and below Constitutional Denies chills and Denies fever(s) Eyes Denies loss of vision ENT Denies change in voice Cardiovascular Denies chest pain and Denies dyspnea Respiratory Denies dyspnea Gastrointestinal Denies abdominal pain, Denies nausea and Denies vomiting Integumentary/Breasts Denies rash Neurologic Denies loss of vision Psychiatric Denies depression PFSH Abdominal wall fistula CKD (chronic kidney disease) COPD (chronic obstructive pulmonary disease) Cholelithiasis Chronic deep vein thrombosis (DVT) Hypertension Ileostomy in place Ulcerative colitis Family History Mother Stroke Father No problems noted. Sister No problems noted. Brother No problems noted. Brother Diabetes ASCVD (arteriosclerotic cardiovascular disease) Brother No problems noted. Sister Diabetes Sister No problems noted. Other Arthritis Medical History Abdominal wall fistula CKD (chronic kidney disease) COPD (chronic obstructive pulmonary disease) Cholelithiasis Chronic deep vein thrombosis (DVT) Hypertension Ileostomy in place Ulcerative colitis Social History Smoking/Tobacco Use Status: Former Tobacco Use alcohol intake: never substance use type: does not use Surgical History Cholecystectomy (02/15/16) Extraction of cataract (07/28/16) Fracture, Closed Treatment (02/15/16) Total colectomy (09/25/97) Transurethral prostatectomy (11/24/14) cystoureteroscopy,lithotrypsy (05/11/15) hernia repair (04/08/99) proctectomy (11/23/98) repair retinal breaks (12/24/03) transsphenoidal hypophysectomy (11/15/93) Social History Smoking/Tobacco Use Status: Former Tobacco Use alcohol intake: never substance use type: does not use Exam Const General: no acute distress Orientation: alert HENMT Head: normal to inspection Ears: external ears normal General nose exam: external nose normal Mouth: moist mucous membranes Eyes General: appearance normal, both eyes and all related structures Neck Neck: normal visual inspection Resp Effort & Inspection: normal respiratory effort and able to speak in complete sentences Cardio Rate: regular rate Skin General skin exam: no rashes or lesions noted Neuro General: alert and oriented x3 Extrem General: normal to inspection Psych Mental Status: mental status grossly normal
--- NOTE | 2018-03-08 06:37 | ED.GENADUL_ITS ---
Discharge Plan Disposition Patient Disposition: STILL A PATIENT Condition: Stable Discharge Details Clinical Impression: General weakness Reason For Visit: JENNYEX Primary Care Provider: Sheeba Morelos ED Provider: Sixto Hannon Home Meds and New Rx's Prescriptions: No Action budesonide-formoterol [Symbicort] 160-4.5 mcg/actuation HFA aerosol inhaler 1 puff Inhalation BID Qty: 3 RF: 3 cyanocobalamin (vitamin B-12) 1,000 mcg/mL solution 1,000 mcg IJ monthly Qty: 3 RF: 3 fluticasone 50 mcg/actuation spray,suspension 2 spray NS DAILY Qty: 48 RF: 3 pantoprazole 40 mg tablet,delayed release (DR/EC) 40 mg PO DAILY Qty: 90 RF: 3 hydrocortisone [Cortef] 5 mg tablet See Rx Instructions PO BID Qty: 90 RF: 12 lacosamide 150 mg tablet 150 mg PO BID Qty: 60 RF: 3 fludrocortisone 0.1 MG tablet 0.15 mg PO DAILY Qty: 90 RF: 3 triamcinolone acetonide 15 GM cream 1 gr Topical BID Qty: 60 RF: 6 methotrexate sodium 2.5 MG tablet 15 mg PO as directed RF: 0 folic acid 1 MG tablet 2 mg PO DAILY RF: 0 montelukast 10 MG tablet 10 mg PO DAILY Qty: 90 RF: 3 denosumab [Prolia] 60 MG/1 ML syringe 60 mg SQ q6 months RF: 0 cholecalciferol (vitamin D3) 2,000 UNIT tablet 5,000 unit PO DAILY RF: 0 lidocaine [LC-5] 45 GM cream 1 film Topical 2-4 times daily PRN Qty: 1 RF: 0 needle (disp) 21 G [BD Regular Bevel [place]] 1 EACH needle 1 ea Miscellaneous monthly Qty: 12 RF: 0 hydrocortisone [Cortef] 10 mg tablet 10 mg PO .COMPLEX RF: 0 citalopram 20 mg tablet 20 mg PO DAILY Qty: 90 RF: 3 epinephrine 0.3 MG/SYR auto-injector 0.3 mg Sub-Q PRN PRNRF: 0 acetaminophen 325 MG tablet 650 mg PO Q4H PRN PRNRF: 0 Medical Decision Making 77 yo male who was d/c'd from [facility] yesterday after being admitted for general weakness and uti comes in with cc of I need to go to rehab. He states he lives with his and she can't provide the care that he needs so he called ems and was brought here. HE states he has felt general weakness and feels deconditioned for about a week. Denies fevers, has no focal neuro deficits on exam, no fevers, hd stable. Suspect deconditioning from recent illness, will eval for anemia and electrolyte abnormalities and if none found will consult case management about placement labs unremarkable, remains stable. STill no focal neuro deficits, pat will be signed out pending case management review for placement Differential Diagnosis electrolyte abnormality, anemia, uti Lab Data Lab results reviewed: Yes I reviewed the patient's lab results. HPI General Mode of arrival: EMS . Date/Time Provider Initiated Documentation: 03/08/18 06:33 . Limitations to Documentation: no limitations . Information obtained by: patient . History of Present Illness 77 year old M presents to the emergency department with the chief complaint of general weakness, described as moderate, with intensity rated at 4. Patient reports no radiation. Patient started experiencing this week(s) (1) No r elieving factors improve symptom(s), No exacerbating factors reported . Patient did receive the following treatments prior to arrival, none Related Data Home Medications Medication Instructions Recorded Confirmed epinephrine 0.3 mg SUB-Q PRN PRN 10/07/14 03/05/18 acetaminophen 650 mg PO Q4H PRN PRN 10/26/15 03/05/18 fludrocortisone 0.15 mg PO DAILY #90 tab-cap 03/17/16 03/05/18 triamcinolone acetonide 1 gr TOPICAL BID #60 gm 03/17/16 03/05/18 folic acid 2 mg PO DAILY 10/24/16 03/05/18 methotrexate sodium 15 mg PO as directed 10/24/16 03/05/18 montelukast 10 mg PO DAILY #90 tab-cap 01/03/17 03/05/18 denosumab [Prolia] 60 mg SQ q6 months 03/15/17 03/05/18 cholecalciferol (vitamin D3) 5,000 unit PO DAILY 04/19/17 03/05/18 lidocaine [Lc-5] 1 film TOPICAL 2-4 times daily PRN 09/06/17 03/05/18 #1 tube needle (disp) 21 G [[place]] #12 ea 11/16/17 02/22/18 lacosamide 150 mg tablet 150 mg PO BID #60 tab 12/27/17 03/05/18 Cortef 5 mg tablet See Rx Instructions PO BID #90 02/07/18 02/07/18 tab-cap NS budesonide-formoterol HFA 160 1 puff INHALATION BID #3 canister 02/07/18 03/05/18 mcg-4.5 mcg/actuation aerosol inhaler cyanocobalamin (vit B-12) 1,000 1,000 mcg IJ monthly #3 vial 02/07/18 03/05/18 mcg/mL injection solution fluticasone 50 mcg/actuation nasal 2 spray NS DAILY #48 gm 02/07/18 03/05/18 spray,suspension pantoprazole 40 mg tablet,delayed 40 mg PO DAILY #90 tab-cap 02/07/18 03/05/18 release hydrocortisone 10 mg tablet 10 mg PO .COMPLEX 02/08/18 03/05/18 citalopram 20 mg tablet 20 mg PO DAILY #90 tab 02/21/18 03/05/18 Previous Rx's Medication Instructions Recorded montelukast 10 mg PO DAILY #90 tab-cap 01/03/17 lidocaine [Lc-5] 1 film TOPICAL 2-4 times daily PRN 09/06/17 #1 tube needle (disp) 21 G [[place]] #12 ea 11/16/17 lacosamide 150 mg tablet 150 mg PO BID #60 tab 12/27/17 Cortef 5 mg tablet See Rx Instructions PO BID #90 02/07/18 tab-cap NS budesonide-formoterol HFA 160 1 puff INHALATION BID #3 canister 02/07/18 mcg-4.5 mcg/actuation aerosol inhaler cyanocobalamin (vit B-12) 1,000 1,000 mcg IJ monthly #3 vial 02/07/18 mcg/mL injection solution fluticasone 50 mcg/actuation nasal 2 spray NS DAILY #48 gm 02/07/18 spray,suspension pantoprazole 40 mg tablet,delayed 40 mg PO DAILY #90 tab-cap 02/07/18 release citalopram 20 mg tablet 20 mg PO DAILY #90 tab 02/21/18 Allergies Allergy/AdvReac Type Severity Reaction Status Date / Time latex Allergy Intermediate rash, Verified 03/05/18 18:20 itching plasma protein fraction Allergy Intermediate Hives Verified 03/05/18 18:20 acebutolol Allergy Unknown Verified 03/05/18 18:20 promethazine Allergy Unknown Verified 03/05/18 18:20 pseudoephedrine Allergy Unknown Verified 03/05/18 18:20 terazosin Allergy Unknown Verified 03/05/18 18:20 tramadol HCl [From Ultracet] Allergy Unknown Verified 03/05/18 18:20 venom-honey bee Allergy Verified 03/05/18 18:20 [bee venom (honey bee)] ferrous sulfate AdvReac Severe Stomach Verified 03/05/18 18:20 aches tamsulosin HCl [From Flomax] AdvReac Severe Dizziness/L Verified 03/05/18 18:20 ightheade Antihistamines - Alkylamine AdvReac Unknown affected Verified 03/05/18 18:20 prostate cefuroxime AdvReac Unknown daark urine Verified 03/05/18 18:20 plasma human Allergy Intermediate Hives Uncoded 03/05/18 18:20 General SANTOSH: 2 Review of Systems Review of Systems All systems reviewed & are unremarkable except as noted in HPI and below Constitutional Denies chills and Denies fever(s) Eyes Denies loss of vision ENT Denies change in voice Cardiovascular Denies chest pain and Denies dyspnea Respiratory Denies dyspnea Gastrointestinal Denies abdominal pain, Denies nausea and Denies vomiting Integumentary/Breasts Denies rash Neurologic Denies loss of vision Psychiatric Denies depression PFSH Abdominal wall fistula CKD (chronic kidney disease) COPD (chronic obstructive pulmonary disease) Cholelithiasis Chronic deep vein thrombosis (DVT) Hypertension Ileostomy in place Ulcerative colitis Family History Mother Stroke Father No problems noted. Sister No problems noted. Brother No problems noted. Brother Diabetes ASCVD (arteriosclerotic cardiovascular disease) Brother No problems noted. Sister Diabetes Sister No problems noted. Other Arthritis Medical History Abdominal wall fistula CKD (chronic kidney disease) COPD (chronic obstructive pulmonary disease) Cholelithiasis Chronic deep vein thrombosis (DVT) Hypertension Ileostomy in place Ulcerative colitis Social History Smoking/Tobacco Use Status: Former Tobacco Use alcohol intake: never substance use type: does not use Surgical History Cholecystectomy (02/15/16) Extraction of cataract (07/28/16) Fracture, Closed Treatment (02/15/16) Total colectomy (09/25/97) Transurethral prostatectomy (11/24/14) cystoureteroscopy,lithotrypsy (05/11/15) hernia repair (04/08/99) proctectomy (11/23/98) repair retinal breaks (12/24/03) transsphenoidal hypophysectomy (11/15/93) Social History Smoking/Tobacco Use Status: Former Tobacco Use alcohol intake: never substance use type: does not use Exam Const General: no acute distress Orientation: alert HENMT Head: normal to inspection Ears: external ears normal General nose exam: external nose normal Mouth: moist mucous membranes Eyes General: appearance normal, both eyes and all related structures Neck Neck: normal visual inspection Resp Effort & Inspection: normal respiratory effort and able to speak in complete sentences Cardio Rate: regular rate Skin General skin exam: no rashes or lesions noted Neuro General: alert and oriented x3 Extrem General: normal to inspection Psych Mental Status: mental status grossly normal
[2018-03-08 07:05] LABS: ALT 109 U/L (12-78); AST 90 U/L (15-37); Albumin 3.2 g/dL (3.4-5.0); Alkaline Phosphatase 147 U/L (46-116); Anion Gap 12.3 mmol/L (3-11); BUN 16 mg/dL (7-18); Bilirubin, Total 1.3 mg/dL (0.2-1.0); CO2 24.7 mmol/L (21.0-32.0); CREATININE 1.21 mg/dL (0.70-1.30); Calcium 9.1 mg/dL (8.5-10.1); Chloride 99 mmol/L (98-107); Estimated GFR 58.46 (mL/min/1.73m2); Glucose 82 mg/dL (70-100); Potassium 4.6 mmol/L (3.5-5.1); Sodium 136 mmol/L (136-145); Total Protein 7.5 g/dL (6.4-8.2)
[2018-03-08 07:07] LABS: Abs Immature Grans 0.02 k/cumm (0.0-0.09); Absolute Basophil Count 0.01 k/cumm (0.0-0.2); Absolute Eosinophil Count 0.24 k/cumm (0.0-0.7); Absolute Lymphocyte Count 0.82 k/cumm (1.2-3.4); Absolute Monocyte Count 1.15 k/cumm (0.11-0.7); Absolute Neutrophil Count 2.43 k/cumm (1.2-6.7); Basophils % 0.2; Eosinophils % 5.1; HCT 37.4 % (40.0-50.0); HGB 12.3 g/dL (13.5-17.5); Immature Grans % 0.4; Lymphocytes % 17.6; Mean Corp. HGB Concentration 32.9 g/dL (32.0-36.0); Mean Corpuscular Hemoglobin 30.7 pg (27.0-33.0); Mean Corpuscular Volume 93.3 fL (80-95); Mean Platelet Volume 12.2 fL (8.0-11.0); Monocytes % 24.6; Neutrophils % 52.1; Platelet Count 178 x1000/uL (130-400); RBC 4.01 m/cumm (4.50-6.00); White Blood Cell Count 4.67 k/cumm (4.4-10.8)
--- NOTE | 2018-03-08 09:38 | NUR.NOTE ---
Echo Gross assumes care of Mr. Wang from Jermaine Moreira RN at 0925. Nursing Note:
--- NOTE | 2018-03-08 09:39 | NUR.NOTE ---
Mr. Wang verbalizing concern that he has not yet taken his lacosamide (Vimpat) morning dose of one-half tab. Reports he takes a whole tab at bedtime. Patient has his own medication with him, in original container, with prescription instructions on bottle. D/W Dr. Barraza. Verbal Order from Dr. Barraza to admin AM dose of Vimpat 1/2 tab (75mg) po. Vimpat 75mg po x1 given to Mr. Wang by com writer at 0930 [facility] Nursing Note:
[2018-03-08] MEDS: Hydrocortisone 10 MG TAB 25 MG PO (12:04)
[2018-03-08] MEDS: Fludrocortisone 0.1 MG TAB PO (12:06)
--- NOTE | 2018-03-08 12:10 | NUR.NOTE ---
Addition info for skin assessment: re: perirectal/sacral pinkness; area measured and documented in skin assessment section is non-blanching. Area was cleansed and Jose cream applied. Tissue looks to have healing abrasion with very small dryed scabs. Second area of blanchable redness radiating out from nonblanchable area, so that total area of redness is 8cm wide by 9 cm high (head to toe direction). Patient has been positioned side to side since ~1000 today.Nursing Note:
--- NOTE | 2018-03-08 14:22 | NUR.NOTE ---
Bladder scan ~1300 r/t small amounts of voids . Bladder scan revealed 550cc. Str cath for 330cc. UA ordered by Dr. Rubio Note:
--- NOTE | 2018-03-08 14:24 | NUR.NOTE ---
Colostomy connection leaking. Replaced appliance without difficulty. Stoma pink, healthy looking. 2 1/2 appliance used to replaceNursing Note:
--- NOTE | 2018-03-08 14:26 | PDOC.ERCMPRO ---
- If Service Date Differs Date of service: 03/08/18 Time of Service: 14:26 Care Management Progress Note CM was asked to see Liang regarding possible SNF placement. Jose Miguel reports that he has been declining for over a month and is unable to care for himself at home. Jose Miguel lives in [facility] with his , Steffany, who is reportedly demented and has Parkinson's. They do not have children or local family per Jose Miguel. They do reportedly have a niece who resides in [place]. 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 Steffany cares for Jose Miguel. Jose Miguel has not had a three night qualifying stay at a hospital so would be self-pay if opting for SNF placement. He was recently treated at both [facility] and [facility] but did not have three nights at either. JOSE ANTONIO spoke with Jose Miguel about options including self-pay at a SNF vs. home with home health services (PT/OT) a couple days per week. [facility] has worked with/currently works with Jose Miguel's , Steffany. Jose Miguel and Steffany's friend, Karla, reports that she is keeping an eye on Steffany and assisting with her care. Jose Miguel states that he is interested in SNF placement and would be open to referrals to [facility] and the [facility]. [facility] does not have bed availability today, the [facility] does. Per Trista at the [facility], the cost for Jose Miguel's room and board would be $250/day and his Medicare part B would cover his PT/OT services. Trista would need the month's cost ($7500) up front and Jose Miguel reports that he can pay that. Arrangements have been made with Jose Miguel's friend, Karla, to deliver his checkbook to him. (Karla's number is [phone]). There is concern about Steffany's well being additionally, though Jose Miguel reports that Steffany would not be willing to go to the [facility] due to their cat. The [facility] has concerns about Jose Miguel's recent subdural hematoma, and while they are interested in offering a bed to Jose Miguel, they have reservations and are requesting further testing be done prior to placement. JOSE ANTONIO spoke with Dr. Barraza who was agreeable to ordering a CT scan. Per MD, CT is down until approximately 1300 today, at which time Jose Miguel will have a head CT. JOSE ANTONIO (or JOSE ANTONIO gis application developer) will follow up with the [facility] regarding results. Due to the [facility] limitations on admissions, Jose Miguel will likely not be admitted until Monday am, pending availability and the scan results. Anticipate patient will discharge to the [facility] pending bed offer. Transportation TBD; if via [facility], [facility] can be billed. Liang BRADY will continue to offer support to patient, family, and care team regarding discharge planning and disposition.
[2018-03-08 14:44] LABS: Bilirubin Negative (Negative); Blood Small (Negative); Clarity Sl Cloudy; Glucose Negative (Negative); Ketones Trace mg/dL (Negative); Leukocyte Esterase Small (Negative); Nitrite Negative (Negative); Urobilinogen 0.2 EU/dL (Up TO 0.2); pH 5.5 (5-8)
--- NOTE | 2018-03-08 14:57 | CMPROGNOTE_ITS ---
- If Service Date Differs Date of service: 03/08/18 Time of Service: 14:26 Care Management Progress Note CM was asked to see Liang regarding possible SNF placement. Jose Miguel reports that he has been declining for over a month and is unable to care for himself at home. Jose Miguel lives in [facility] with his , Steffany, who is reportedly demented and has Parkinson's. They do not have children or local family per Jose Miguel. They do reportedly have a niece who resides in [place]. Depending on whom one speaks with, Jose Miguel is the primary doper operator for Steffany vs. Steffany cares for Jose Miguel. Jose Miguel has not had a three night qualifying stay at a hospital so would be self-pay if opting for SNF placement. He was recently treated at both [facility] and [facility] but did not have three nights at either. JOSE ANTONIO spoke with Jose Miguel about options including self-pay at a SNF vs. home with home health services (PT/OT) a couple days per week. [facility] has worked with/currently works with Jose Miguel's , Steffany. Jose Miguel and Steffany's friend, Karla, reports that she is keeping an eye on Steffany and assisting with her care. Jose Miguel states that he is interested in SNF placement and would be open to referrals to [facility] and the [facility]. [facility] does not have bed availability today, the [facility] does. Per Trista at the [facility], the cost for Jose Miguel's room and board would be $250/day and his Medicare part B would cover his PT/OT services. Trista would need the month's cost ($7500) up front and Jose Miguel reports that he can pay that. Arrangements have been made with Jose Miguel's friend, Karla, to deliver his checkbook to him. (Karla's number is [phone]). There is concern about Steffany's well being additionally, though Jose Miguel reports that Steffany would not be willing to go to the [facility] due to their cat. The [facility] has concerns about Jose Miguel's recent subdural hematoma, and while they are interested in offering a bed to Jose Miguel, they have reservations and are requesting further testing be done prior to placement. JOSE ANTONIO spoke with Dr. Barraza who was agreeable to ordering a CT scan. Per MD, CT is down until approximately 1300 today, at which time Jose Miguel will have a head CT. JOSE ANTONIO (or JOSE ANTONIO internal controls consultant) will follow up with the [facility] regarding results. Due to the [facility] limitations on admissions, Jose Miguel will likely not be admitted until Monday am, pending availability and the scan results. Anticipate patient will discharge to the [facility] pending bed offer. Transportation TBD; if via [facility], [facility] can be billed. Liang BRADY will continue to offer support to patient, family, and care team regarding discharge planning and disposition.
[2018-03-08 14:58] LABS: Bacteria Few HPF (Negative); Casts Negative LPF (Negative); Crystals Few Amorphous HPF (Negative); Epithelial Cells Negative HPF (Negative); Mucus Negative (Negative); WBC 20-50 HPF (0-5)
[2018-03-08 14:59] LABS: C & S Indicated? Yes
[2018-03-08] MEDS: Cephalexin 500 MG CAP PO (16:28)
--- NOTE | 2018-03-08 16:58 | DI.CT_ITS ---
SYMPTOM/DIAGNOSIS: H/O BLEED, NONCONTRAST HEAD CT: Comparison is made with 05 Mar 2018. There has been no change in the size of the left subdural hematoma. No acute hemorrhage is seen. A Craniotomy defect is again noted. There is no evidence of infarct. The ventricles are unchanged in size. IMPRESSION: Stable appearance of left subdural collection. No acute abnormality.
--- NOTE | 2018-03-08 17:08 | DI.VRAD_ITS ---
EXAM: CT Head Without Contrast EXAM DATE/TIME: 03/08/2018 11:15 AM CLINICAL HISTORY: 77 years old, male; Signs and symptoms; Other: HX of bleed; Prior surgery; Surgery date: 3-7 days post-operative; Surgery type: Patient sts had head drained 3 months ago. TECHNIQUE: Axial computed tomography images of the head/brain without contrast. All CT scans at this facility use at least one of these dose optimization techniques: automated exposure control; mA and/or kV adjustment per patient size (includes targeted exams where dose is matched to clinical indication); or iterative reconstruction. Coronal and sagittal reformatted images were created and reviewed. COMPARISON: CT HEAD WO 03/05/2018 6:46 PM FINDINGS: Brain: The left subdural collection measuring up to 5 mm in thickness it is unchanged compared to the prior examination. No new abnormal extra-axial or intra-axial fluid collections. No acute intracranial hemorrhage. Physiologic calcifications within the basal ganglia. Mild global cerebral atrophy consistent with patient's age. No subfalcine or transtentorial herniation. Ventricles: Unremarkable. No ventriculomegaly. Bones/joints: Left craniotomy defect, unchanged. Sinuses: Bilateral maxillary mild mucosal thickening. Mucosal thickening and partial opacification of bilateral ethmoid sinuses. Mastoid air cells: Normal as visualized. No mastoid effusion. Soft tissues: Unremarkable. IMPRESSION: 1. No acute intracranial abnormality. 2. Unchanged left subdural collection. Dictated and Authenticated by: Deon Rogel MD. Ordering:LIZ Spangler MD
--- NOTE | 2018-03-08 18:32 | NUR.NOTE ---
Pt. resting, no needs at this time, waiting ready room. Will monitor.
--- NOTE | 2018-03-08 19:00 | NUR.NOTE ---
Mr. Wang protective services case worker brought a check to him made out to [facility] for a rehab stay. Check put in a valuables envelope and turned over to nurse caring for Mr. Wang. Lashawn López. Thuy Mitchell Bending Shed Worker.Nursing Note:
--- NOTE | 2018-03-08 19:21 | W.ED.GENAD ---
Discharge Plan Disposition Patient Disposition: [facility] Condition: Stable Discharge Details Chief Complaint: GenMedical Clinical Impression: General weakness Reason For Visit: UNABLE TO PERFORM ADL'S Admit Date/Time: 03/08/18 18:43 Admit Provider: Jose Black Attending Provider: Jose Black Primary Care Provider: Sheeba Morelos ED Provider: Aníbal Barraza Medical Decision Making This case was signed out to me by my colleague Dr. Hannon. At the time of signout we are pending placement to an rehab facility secondary to the patient's worsening ability to perform ADLs at home. Physical exam from my colleague was relatively benign. Laboratory workup was benign. The patient is willing to pay with garcia for his initial visit cost, and has presented to check for this. However when the facility was contacted for transfer the facility nurse was concerned that his symptoms may be from his subdural hematoma that he has had in the past. My initial exam demonstrated no significant neurologic abnormality, this was discussed with the nurse, in addition to the fact that a CT scan of the head was performed 2-3 days ago and was stable at that time with no acute process. In spite of this they were concerned that there might be something changing, and requested a CT prior to transfer. Unfortunately a CT scan was down at the hospital here for quite some time, and instead of the patient being able to get a CT at 10:00 when initially ordered, the patient had to wait till the late afternoon. Once a CT scan was completed and shown to again be negative with no acute process and no signs of a worsening hematoma the nursing facility at the [facility] stated that it was too late to accept the patient he could not be time to time due to the lateness in the evening. My multiple repeat neurologic assessments demonstrate no acute acute neurologic process. Patient demonstrates normal movement of all extremities, no focal neurologic deficit, however does demonstrate signs of generalized weakness consistent with decompensation secondary to age. Repeat urinalysis still demonstrates a urinary tract infection however it is notably improved. I did give him his dose of Keflex here. Since we are unable to transfer the patient to the rehab facility at this time, I did contact the hospitalist and the case manager specialist for potential placement in the swing bed be transferred to a rehab facility. brand activation manager was in agreement with this, as was the hospitalist Dr. Black. Patient will be admitted to the floor for overnight observation swing bed for placement at a rehab facility/[facility] tomorrow morning. CT scan is in order, payment is in order, case management is on board with the current plan. I have extensively reviewed the treatment plan with the patient. I have addressed all patient concerns at this time. I have also discussed the plan with the admitting physician and they agree with the current assessment and plan and have agreed to assume responsibility for the patient. All parties demonstrate verbal understanding and agreement with our assessment and plan at this time. FINDINGS: Brain: The left subdural collection measuring up to 5 mm in thickness it is unchanged compared to the prior examination. No new abnormal extra-axial or intra-axial fluid collections. No acute intracranial hemorrhage. Physiologic calcifications within the basal ganglia. Mild global cerebral atrophy consistent with patient's age. No subfalcine or transtentorial herniation. Ventricles: Unremarkable. No ventriculomegaly. Bones/joints: Left craniotomy defect, unchanged. Sinuses: Bilateral maxillary mild mucosal thickening. Mucosal thickening and partial opacification of bilateral ethmoid sinuses. Mastoid air cells: Normal as visualized. No mastoid effusion. Soft tissues: Unremarkable. IMPRESSION: 1. No acute intracranial abnormality. 2. Unchanged left subdural collection. HPI General Mode of arrival: EMS. Date/Time Provider Initiated Documentation: 03/08/18 06:33. Limitations to Documentation: no limitations. Information obtained by: patient. History of Present Illness with intensity rated at 4. No relieving factors improve symptom(s), No exacerbating factors reported . Patient did receive the following treatments prior to arrival, none Related Data Home Medications Medication Instructions Recorded Confirmed epinephrine 0.3 mg SUB-Q PRN PRN 10/07/14 03/08/18 acetaminophen 650 mg PO Q4H PRN PRN 10/26/15 03/08/18 fludrocortisone 0.15 mg PO DAILY #90 tab-cap 03/17/16 03/08/18 triamcinolone acetonide 1 gr TOPICAL BID #60 gm 03/17/16 03/08/18 folic acid 1 mg PO DAILY 10/24/16 03/08/18 montelukast 10 mg PO DAILY #90 tab-cap 01/03/17 03/08/18 denosumab [Prolia] 60 mg SQ q6 months 03/15/17 03/08/18 cholecalciferol (vitamin D3) 5,000 unit PO DAILY 04/19/17 03/08/18 needle (disp) 21 G [[place]] #12 ea 11/16/17 03/08/18 budesonide-formoterol HFA 160 1 puff INHALATION BID #3 canister 02/07/18 03/08/18 mcg-4.5 mcg/actuation aerosol inhaler cyanocobalamin (vit B-12) 1,000 1,000 mcg IJ monthly #3 vial 02/07/18 03/08/18 mcg/mL injection solution fluticasone 50 mcg/actuation nasal 2 spray NS DAILY #48 gm 02/07/18 03/08/18 spray,suspension pantoprazole 40 mg tablet,delayed 40 mg PO DAILY #90 tab-cap 02/07/18 03/08/18 release hydrocortisone 10 mg tablet 10 mg PO .COMPLEX 02/08/18 03/08/18 citalopram 20 mg tablet 20 mg PO DAILY #90 tab 02/21/18 03/08/18 lacosamide See Rx Instructions .ROUTE .COMPLEX 03/08/18 03/08/18 Previous Rx's Medication Instructions Recorded montelukast 10 mg PO DAILY #90 tab-cap 01/03/17 needle (disp) 21 G [[place]] #12 ea 11/16/17 budesonide-formoterol HFA 160 1 puff INHALATION BID #3 canister 02/07/18 mcg-4.5 mcg/actuation aerosol inhaler cyanocobalamin (vit B-12) 1,000 1,000 mcg IJ monthly #3 vial 02/07/18 mcg/mL injection solution fluticasone 50 mcg/actuation nasal 2 spray NS DAILY #48 gm 02/07/18 spray,suspension pantoprazole 40 mg tablet,delayed 40 mg PO DAILY #90 tab-cap 02/07/18 release citalopram 20 mg tablet 20 mg PO DAILY #90 tab 02/21/18 Allergies Allergy/AdvReac Type Severity Reaction Status Date / Time latex Allergy Intermediate rash, Verified 03/08/18 09:55 itching plasma protein fraction Allergy Intermediate Hives Verified 03/08/18 09:55 acebutolol Allergy Unknown Verified 03/08/18 09:55 promethazine Allergy Unknown Verified 03/08/18 09:55 pseudoephedrine Allergy Unknown Verified 03/08/18 09:55 terazosin Allergy Unknown Verified 03/08/18 09:55 tramadol HCl [From Ultracet] Allergy Unknown Verified 03/08/18 09:55 venom-honey bee Allergy Verified 03/08/18 09:55 [bee venom (honey bee)] ferrous sulfate AdvReac Severe Stomach Verified 03/08/18 09:55 aches tamsulosin HCl [From Flomax] AdvReac Severe Dizziness/L Verified 03/08/18 09:55 ightheade Antihistamines - Alkylamine AdvReac Unknown affected Verified 03/08/18 09:55 prostate cefuroxime AdvReac Unknown daark urine Verified 03/08/18 09:55 plasma human Allergy Intermediate Hives Uncoded 03/08/18 09:55 General Stated Complaint: GenMedical SANTOSH: 3 PFSH Abdominal wall fistula CKD (chronic kidney disease) COPD (chronic obstructive pulmonary disease) Cholelithiasis Chronic deep vein thrombosis (DVT) Hypertension Ileostomy in place Ulcerative colitis Family History Mother Stroke Father No problems noted. Sister No problems noted. Brother No problems noted. Brother Diabetes ASCVD (arteriosclerotic cardiovascular disease) Brother No problems noted. Sister Diabetes Sister No problems noted. Other Arthritis Medical History Abdominal wall fistula CKD (chronic kidney disease) COPD (chronic obstructive pulmonary disease) Cholelithiasis Chronic deep vein thrombosis (DVT) Hypertension Ileostomy in place Ulcerative colitis Social History Smoking/Tobacco Use Status: Former Tobacco Use alcohol intake: never substance use type: does not use Surgical History Cholecystectomy (02/15/16) Extraction of cataract (07/28/16) Fracture, Closed Treatment (02/15/16) Total colectomy (09/25/97) Transurethral prostatectomy (11/24/14) cystoureteroscopy,lithotrypsy (05/11/15) hernia repair (04/08/99) proctectomy (11/23/98) repair retinal breaks (12/24/03) transsphenoidal hypophysectomy (11/15/93) Social History Smoking/Tobacco Use Status: Former Tobacco Use alcohol intake: never substance use type: does not use Course Vital Signs Respiratory Rate 16 03/08/18 07:14 Pulse Oximetry 99 03/08/18 07:14 Temperature 36.8 C 03/08/18 12:03 Temperature Source Temporal Artery Scan 03/08/18 12:03 Pulse 79 03/08/18 15:41 Pulse 76 03/08/18 11:50 Respiratory Rate 16 03/08/18 15:41 Respiratory Effort 03/08/18 10:05 Respiratory Depth Normal 03/08/18 10:05 Respiratory Pattern Irregular 03/08/18 10:05 Blood Pressure 119/68 03/08/18 15:41 Blood Pressure Mean 74 03/08/18 09:45 Pulse Oximetry 98 03/08/18 15:41 Oxygen Delivery Method Room Air 03/08/18 15:41 Oxygen Flow Rate 0 03/08/18 15:41 Pain Level 0 03/08/18 15:41 Lab/Test Results Lab/Test Results: 03/08/18 13:20 Urine - Cath Not Specified Urine Culture - Pending Laboratory Tests Range/Units 03/08/18 03/08/18 03/08/18 06:25 06:25 13:20 WBC (4.4-10.8) k/cumm 4.67 RBC (4.50-6.00) m/cumm 4.01 L Hgb (13.5-17.5) g/dL 12.3 L Hct (40.0-50.0) % 37.4 L MCV (80-95) fL 93.3 MCH (27.0-33.0) pg 30.7 MCHC (32.0-36.0) g/dL 32.9 RDW (11.8-14.1) % 15.0 H Plt Count (130-400) x1000/uL 178 MPV (8.0-11.0) fL 12.2 H Immature Gran % 0.4 Neutrophils % 52.1 Lymphocytes % 17.6 Monocytes % 24.6 Eosinophils % 5.1 Basophils % 0.2 Absolute Neutrophils (1.2-6.7) k/cumm 2.43 Absolute Lymphocytes (1.2-3.4) k/cumm 0.82 L Absolute Monocytes (0.11-0.7) k/cumm 1.15 H Absolute Eosinophils (0.0-0.7) k/cumm 0.24 Absolute Basophils (0.0-0.2) k/cumm 0.01 Sodium (136-145) mmol/L 136 Potassium (3.5-5.1) mmol/L 4.6 Chloride (98-107) mmol/L 99 Carbon Dioxide (21.0-32.0) mmol/L 24.7 Anion Gap (3-11) mmol/L 12.3 H BUN (7-18) mg/dL 16 D Creatinine (0.70-1.30) mg/dL 1.21 Estimated GFR/1.73 m2 (mL/min/1.73m2) 58.46 Glucose (70-100) mg/dL 82 Calcium (8.5-10.1) mg/dL 9.1 Total Bilirubin (0.2-1.0) mg/dL 1.3 H AST (15-37) U/L 90 H ALT (12-78) U/L 109 H Alkaline Phosphatase (46-116) U/L 147 H Total Protein (6.4-8.2) g/dL 7.5 Albumin (3.4-5.0) g/dL 3.2 L Urine Color (Yellow) Yellow Urine Clarity Sl cloudy Urine pH (5-8) 5.5 Ur Specific Ruffin (1.005-1.025) 1.020 Urine Protein (Negative) mg/dL 30 H Urine Ketones (Negative) mg/dL Trace H Urine Blood (Negative) Small H Urine Nitrite (Negative) Negative Urine Bilirubin (Negative) Negative Urine Urobilinogen (Up TO 0.2) EU/dL 0.2 Ur Leukocyte Esterase (Negative) Small H Urine RBC (0-2) 10-20 H Urine WBC (0-5) HPF 20-50 Ur Epithelial Cells (Negative) HPF Negative Urine Crystals (Negative) HPF Few amorphous Urine Bacteria (Negative) HPF Few Urine Casts (Negative) LPF Negative Urine Mucus (Negative) Negative Ur Culture Indicated? Yes Urine Glucose (Negative) mg/dL Negative
--- NOTE | 2018-03-08 19:28 | ED.GENADUL_ITS ---
Discharge Plan Disposition Patient Disposition: [facility] INPATIENT Condition: Stable Discharge Details Chief Complaint: GenMedical Clinical Impression: General weakness Reason For Visit: UNABLE TO PERFORM ADL'S Admit Date/Time: 03/08/18 18:43 Admit Provider: Jose Black Attending Provider: Jose Black Primary Care Provider: Sheeba Morelos ED Provider: Aníbal Barraza Medical Decision Making This case was signed out to me by my colleague Dr. Hannon. At the time of signout we are pending placement to an rehab facility secondary to the patient's worsening ability to perform ADLs at home. Physical exam from my colleague was relatively benign. Laboratory workup was benign. The patient is willing to pay with garcia for his initial visit cost, and has presented to check for this. However when the facility was contacted for transfer the facility nurse was concerned that his symptoms may be from his subdural hematoma that he has had in the past. My initial exam demonstrated no significant neurologic abnormality, this was discussed with the nurse, in addition to the fact that a CT scan of the head was performed 2-3 days ago and was stable at that time with no acute process. In spite of this they were concerned that there might be something changing, and requested a CT prior to transfer. Unfortunately a CT scan was down at the hospital here for quite some time, and instead of the patient being able to get a CT at 10:00 when initially ordered, the patient had to wait till the late afternoon. Once a CT scan was completed and shown to again be negative with no acute process and no signs of a worsening hematoma the nursing facility at the [facility] stated that it was too late to accept the patient he could not be time to time due to the lateness in the evening. My multiple repeat neurologic assessments demonstrate no acute acute neurologic process. Patient demonstrates normal movement of all extremities, no focal neurologic deficit, however does demonstrate signs of generalized weakness consistent with decompensation seconda ry to age. Repeat urinalysis still demonstrates a urinary tract infection however it is notably improved. I did give him his dose of Keflex here. Since we are unable to transfer the patient to the rehab facility at this time, I did contact the hospitalist and the caser up for potential placement in the swing bed be transferred to a rehab facility. manager of photography was in agreement with this, as was the hospitalist Dr. Black. Patient will be admitted to the floor for overnight observation swing bed for placement at a rehab facility/[facility] tomorrow morning. CT scan is in order, payment is in order, case management is on board with the current plan. I have extensively reviewed the treatment plan with the patient. I have addressed all patient concerns at this time. I have also discussed the plan with the admitting physician and they agree with the current assessment and plan and have agreed to assume responsibility for the patient. All parties demonstrate verbal understanding and agreement with our assessment and plan at this time. FINDINGS: Brain: The left subdural collection measuring up to 5 mm in thickness it is unchanged compared to the prior examination. No new abnormal extra-axial or intra-axial fluid collections. No acute intracranial hemorrhage. Physiologic calcifications within the basal ganglia. Mild global cerebral atrophy consistent with patient's age. No subfalcine or transtentorial herniation. Ventricles: Unremarkable. No ventriculomegaly. Bones/joints: Left craniotomy defect, unchanged. Sinuses: Bilateral maxillary mild mucosal thickening. Mucosal thickening and partial opacification of bilateral ethmoid sinuses. Mastoid air cells: Normal as visualized. No mastoid effusion. Soft tissues: Unremarkable. IMPRESSION: 1. No acute intracranial abnormality. 2. Unchanged left subdural collection. HPI General Mode of arrival: EMS . Date/Time Provider Initiated Documentation: 03/08/18 06:33 . Limitations to Documentation: no limitations . Information obtained by: patient . History of Present Illness with intensity rated at 4. No relieving factors improve symptom(s), No exacerbating factors reported . Patient did receive the following treatments prior to arrival, none Related Data Home Medications Medication Instructions Recorded Confirmed epinephrine 0.3 mg SUB-Q PRN PRN 10/07/14 03/08/18 acetaminophen 650 mg PO Q4H PRN PRN 10/26/15 03/08/18 fludrocortisone 0.15 mg PO DAILY #90 tab-cap 03/17/16 03/08/18 triamcinolone acetonide 1 gr TOPICAL BID #60 gm 03/17/16 03/08/18 folic acid 1 mg PO DAILY 10/24/16 03/08/18 montelukast 10 mg PO DAILY #90 tab-cap 01/03/17 03/08/18 denosumab [Prolia] 60 mg SQ q6 months 03/15/17 03/08/18 cholecalciferol (vitamin D3) 5,000 unit PO DAILY 04/19/17 03/08/18 needle (disp) 21 G [Gregory] #12 ea 11/16/17 03/08/18 budesonide-formoterol HFA 160 1 puff INHALATION BID #3 canister 02/07/18 03/08/18 mcg-4.5 mcg/actuation aerosol inhaler cyanocobalamin (vit B-12) 1,000 1,000 mcg IJ monthly #3 vial 02/07/18 03/08/18 mcg/mL injection solution fluticasone 50 mcg/actuation nasal 2 spray NS DAILY #48 gm 02/07/18 03/08/18 spray,suspension pantoprazole 40 mg tablet,delayed 40 mg PO DAILY #90 tab-cap 02/07/18 03/08/18 release hydrocortisone 10 mg tablet 10 mg PO .COMPLEX 02/08/18 03/08/18 citalopram 20 mg tablet 20 mg PO DAILY #90 tab 02/21/18 03/08/18 lacosamide See Rx Instructions .ROUTE .COMPLEX 03/08/18 03/08/18 Previous Rx's Medication Instructions Recorded montelukast 10 mg PO DAILY #90 tab-cap 01/03/17 needle (disp) 21 G [Gregory] #12 ea 11/16/17 budesonide-formoterol HFA 160 1 puff INHALATION BID #3 canister 02/07/18 mcg-4.5 mcg/actuation aerosol inhaler cyanocobalamin (vit B-12) 1,000 1,000 mcg IJ monthly #3 vial 02/07/18 mcg/mL injection solution fluticasone 50 mcg/actuation nasal 2 spray NS DAILY #48 gm 02/07/18 spray,suspension pantoprazole 40 mg tablet,delayed 40 mg PO DAILY #90 tab-cap 02/07/18 release citalopram 20 mg tablet 20 mg PO DAILY #90 tab 02/21/18 Allergies Allergy/AdvReac Type Severity Reaction Status Date / Time latex Allergy Intermediate rash, Verified 03/08/18 09:55 itching plasma protein fraction Allergy Intermediate Hives Verified 03/08/18 09:55 acebutolol Allergy Unknown Verified 03/08/18 09:55 promethazine Allergy Unknown Verified 03/08/18 09:55 pseudoephedrine Allergy Unknown Verified 03/08/18 09:55 terazosin Allergy Unknown Verified 03/08/18 09:55 tramadol HCl [From Ultracet] Allergy Unknown Verified 03/08/18 09:55 venom-honey bee Allergy Verified 03/08/18 09:55 [bee venom (honey bee)] ferrous sulfate AdvReac Severe Stomach Verified 03/08/18 09:55 aches tamsulosin HCl [From Flomax] AdvReac Severe Dizziness/L Verified 03/08/18 09:55 ightheade Antihistamines - Alkylamine AdvReac Unknown affected Verified 03/08/18 09:55 prostate cefuroxime AdvReac Unknown daark urine Verified 03/08/18 09:55 plasma human Allergy Intermediate Hives Uncoded 03/08/18 09:55 General Stated Complaint: GenMedical SANTOSH: 3 PFSH Abdominal wall fistula CKD (chronic kidney disease) COPD (chronic obstructive pulmonary disease) Cholelithiasis Chronic deep vein thrombosis (DVT) Hypertension Ileostomy in place Ulcerative colitis Family History Mother Stroke Father No problems noted. Sister No problems noted. Brother No problems noted. Brother Diabetes ASCVD (arteriosclerotic cardiovascular disease) Brother No problems noted. Sister Diabetes Sister No problems noted. Other Arthritis Medical History Abdominal wall fistula CKD (chronic kidney disease) COPD (chronic obstructive pulmonary disease) Cholelithiasis Chronic deep vein thrombosis (DVT) Hypertension Ileostomy in place Ulcerative colitis Social History Smoking/Tobacco Use Status: Former Tobacco Use alcohol intake: never substance use type: does not use Surgical History Cholecystectomy (02/15/16) Extraction of cataract (07/28/16) Fracture, Closed Treatment (02/15/16) Total colectomy (09/25/97) Transurethral prostatectomy (11/24/14) cystoureteroscopy,lithotrypsy (05/11/15) hernia repair (04/08/99) proctectomy (11/23/98) repair retinal breaks (12/24/03) transsphenoidal hypophysectomy (11/15/93) Social History Smoking/Tobacco Use Status: Former Tobacco Use alcohol intake: never substance use type: does not use Course Vital Signs Respiratory Rate 16 03/08/18 07:14 Pulse Oximetry 99 03/08/18 07:14 Temperature 36.8 C 03/08/18 12:03 Temperature Source Temporal Artery Scan 03/08/18 12:03 Pulse 79 03/08/18 15:41 Pulse 76 03/08/18 11:50 Respiratory Rate 16 03/08/18 15:41 Respiratory Effort 03/08/18 10:05 Respiratory Depth Normal 03/08/18 10:05 Respiratory Pattern Irregular 03/08/18 10:05 Blood Pressure 119/68 03/08/18 15:41 Blood Pressure Mean 74 03/08/18 09:45 Pulse Oximetry 98 03/08/18 15:41 Oxygen Delivery Method Room Air 03/08/18 15:41 Oxygen Flow Rate 0 03/08/18 15:41 Pain Level 0 03/08/18 15:41 Lab/Test Results Lab/Test Results: 03/08/18 13:20 Urine - Cath Not Specified Urine Culture - Pending Laboratory Tests Range/Units 03/08/18 03/08/18 03/08/18 06:25 06:25 13:20 WBC (4.4-10.8) k/cumm 4.67 RBC (4.50-6.00) m/cumm 4.01 L Hgb (13.5-17.5) g/dL 12.3 L Hct (40.0-50.0) % 37.4 L MCV (80-95) fL 93.3 MCH (27.0-33.0) pg 30.7 MCHC (32.0-36.0) g/dL 32.9 RDW (11.8-14.1) % 15.0 H Plt Count (130-400) x1000/uL 178 MPV (8.0-11.0) fL 12.2 H Immature Gran % 0.4 Neutrophils % 52.1 Lymphocytes % 17.6 Monocytes % 24.6 Eosinophils % 5.1 Basophils % 0.2 Absolute Neutrophils (1.2-6.7) k/cumm 2.43 Absolute Lymphocytes (1.2-3.4) k/cumm 0.82 L Absolute Monocytes (0.11-0.7) k/cumm 1.15 H Absolute Eosinophils (0.0-0.7) k/cumm 0.24 Absolute Basophils (0.0-0.2) k/cumm 0.01 Sodium (136-145) mmol/L 136 Potassium (3.5-5.1) mmol/L 4.6 Chloride (98-107) mmol/L 99 Carbon Dioxide (21.0-32.0) mmol/L 24.7 Anion Gap (3-11) mmol/L 12.3 H BUN (7-18) mg/dL 16 D Creatinine (0.70-1.30) mg/dL 1.21 Estimated GFR/1.73 m2 (mL/min/1.73m2) 58.46 Glucose (70-100) mg/dL 82 Calcium (8.5-10.1) mg/dL 9.1 Total Bilirubin (0.2-1.0) mg/dL 1.3 H AST (15-37) U/L 90 H ALT (12-78) U/L 109 H Alkaline Phosphatase (46-116) U/L 147 H Total Protein (6.4-8.2) g/dL 7.5 Albumin (3.4-5.0) g/dL 3.2 L Urine Color (Yellow) Yellow Urine Clarity Sl cloudy Urine pH (5-8) 5.5 Ur Specific [place] (1.005-1.025) 1.020 Urine Protein (Negative) mg/dL 30 H Urine Ketones (Negative) mg/dL Trace H Urine Blood (Negative) Small H Urine Nitrite (Negative) Negative Urine Bilirubin (Negative) Negative Urine Urobilinogen (Up TO 0.2) EU/dL 0.2 Ur Leukocyte Esterase (Negative) Small H Urine RBC (0-2) 10-20 H Urine WBC (0-5) HPF 20-50 Ur Epithelial Cells (Negative) HPF Negative Urine Crystals (Negative) HPF Few amorphous Urine Bacteria (Negative) HPF Few Urine Casts (Negative) LPF Negative Urine Mucus (Negative) Negative Ur Culture Indicated? Yes Urine Glucose (Negative) mg/dL Negative
--- NOTE | 2018-03-08 20:36 | W.PM.HP.N ---
Date of service: 03/08/18 Time of Service: 20:50 Assessment and Plan (1) Weakness: Current visit: Yes Status: Acute Weakness may be due to partially treated urinary tract infection or a combination of his chronic problems. Nonfocal exam and no change on his noncontrast head CT with regard to the subdural. History does not suggest apparent seizures as the cause of his slip from the chair at home. There may or may not be anything reversible about his weakness. We will do some lab investigation to rule out metabolic problems. PT consult. (2) Subdural hematoma: Current visit: Yes Status: Acute This appears to be chronic, unchanged on CT scan. (3) Seizure disorder: Current visit: Yes Status: Chronic None reported recently. Concerned about adverse effects from anticonvulsant and the dose is being slowly tapered down. We will continue his outpatient plan as he reports it to me, dropping his dose of Vimpat to 100 mg twice daily tomorrow (4) Abnormal LFTs: Current visit: Yes Status: Acute Unclear if this is related to medication or what role it might be playing with regard to weakness. He has had mild elevation in transaminase levels and alk phos and bilirubin off and on over the past years but only since January have a started to rise again. There may be a hepatic problem contributing to his anorexia. Will arrange for ultrasound of the abdomen for tomorrow. Repeat labs. (5) Uncomplicated asthma: Current visit: Yes Status: Acute This appears to be stable with his outpatient inhalers and Singulair, no changes planned. (6) DEVORAH on CPAP: Current visit: Yes Status: Acute Reports that he does not use CPAP regularly at home, machine broken and does not seem to be suffering from the lack of treatment. (7) Rheumatoid arthritis: Current visit: Yes Status: Acute Has not been active recently, no acute inflammatory changes found on exam now. (8) Depression: Current visit: Yes Status: Acute May be contributing to his sense of weakness. Continue outpatient dose of SSRI. (9) CKD (chronic kidney disease) stage 3, GFR 30-59 ml/min: Current visit: Yes Status: Acute Stable at present time, monitor renal function episodically. (10) Adrenal insufficiency: Current visit: Yes Status: Acute Appears to be stable on current replacement of hydrocortisone and fludrocortisone. No changes planned. (11) H/O ulcerative colitis: Current visit: Yes Status: Chronic Routine monitoring of stool output and ostomy care. (12) UTI (lower urinary tract infection): Current visit: Yes Status: Acute Not clear if he has an active UTI. He certainly has pyuria. I am not continuing antibiotics, monitor for fever. Await results of most recent urine culture which may be negative because of recent antibiotic use. (13) Urinary retention with incomplete bladder emptying: Current visit: Yes Status: Acute Bladder scanning shows a moderate postvoid residual but he is able to void. Await outcome of urine culture as noted above. Consider urology consultation if retention becomes a bigger issue. (14) Discharge planning issues: Current visit: Yes Status: Acute Plan is to transfer to the [facility] for long-term care. He has concerns regarding the cost. I reviewed with him again his CODE STATUS and he does want CPR initiated in the event of cardiopulmonary arrest. History of Present Illness Chief Complaint: Weakness Narrative: 77-year-old man with multiple chronic medical problems presenting to the emergency room from home because of weakness. He had recently been in the ER 2 days ago because of similar complaints, found to have pyuria and felt to have a urinary tract infection requiring admission but there were no beds available here and so he was transferred to [facility] where he was admitted. He was discharged yesterday on oral antibiotics. This morning he was trying to get up from a chair, slipped to the floor, too weak to get up and so presented back to the emergency room. Nonfocal exam in the ER, stable subdural hematoma on CT scan, no obvious metabolic problems that would cause his weakness. He continues to have pyuria. His urine culture from his initial presentation grew mixed gram-positive organisms. Discussion was held with the [facility] who accepted the patient but by the time his workup was complete, was too late for them to admit him and so is being kept here overnight with the anticipation of going to the [facility] tomorrow. However, he has some unexplained abnormalities of his liver function tests which I believe merit further investigation. He reports a drop in appetite with some mild nausea but no vomiting. He denies any right upper quadrant pain. He has a history of cholelithiasis, gallstone pancreatitis and cholecystectomy. He has not had any pain in the right upper quadrant. He denies any fevers or chills. He reports generalized but not focal weakness. He has had a subdural hematoma this past fall, seizure that followed surgery for this, has been on anticonvulsant with the dose being tapered down due to concerns of adverse effects contributing to his malaise and weakness? He is quite certain he did not have a seizure today that led to him slipping from the chair. He did not strike his head. He acknowledges he has difficulty voiding, slow stream, no recent hematuria. He does not think there is been any significant change in his ostomy output and he seen no blood. Review of Systems Review of Systems As per HPI. No recent vision changes. No mouth sores. No trouble swallowing. No productive cough. No dyspnea with present low level of activity. No chest pain or palpitations. Nausea and decreased appetite but no vomiting. No abdominal pains. Slow urinary flow but no urgency. No claudication symptoms. No paresthesias. No recent fevers. His principal worry now is who will but after his who has dementia. PFSH Abnormal LFTs (Acute) Seizure disorder (Chronic) Subdural hematoma (Acute) Urinary retention with incomplete bladder emptying (Acute 11/06/15) Ulcerative colitis (Acute 11/06/15) Rheumatoid arthritis (Acute 11/06/15) DEVORAH on CPAP (Acute 11/06/15) Depression (Acute 08/14/17) CKD (chronic kidney disease) stage 3, GFR 30-59 ml/min (Acute 11/06/15) Adrenal insufficiency (Acute 05/15/17) [place]'s disease (Chronic) H/O ulcerative colitis (Chronic) Asthma (Chronic) Abdominal wall fistula CKD (chronic kidney disease) COPD (chronic obstructive pulmonary disease) Cholelithiasis Chronic deep vein thrombosis (DVT) Hypertension Ileostomy in place Ulcerative colitis Cholecystectomy (02/15/16) Extraction of cataract (07/28/16) Fracture, Closed Treatment (02/15/16) Total colectomy (09/25/97) Transurethral prostatectomy (11/24/14) cystoureteroscopy,lithotrypsy (05/11/15) hernia repair (04/08/99) proctectomy (11/23/98) repair retinal breaks (12/24/03) transsphenoidal hypophysectomy (11/15/93) Family History Mother Stroke Father No problems noted. Sister No problems noted. Brother No problems noted. Brother Diabetes ASCVD (arteriosclerotic cardiovascular disease) Brother No problems noted. Sister Diabetes Sister No problems noted. Other Arthritis Social History Smoking/Tobacco Use Status: Former Tobacco Use alcohol intake: never substance use type: does not use Meds Home Medications Medication Instructions Recorded Confirmed Type epinephrine 0.3 mg SUB-Q PRN PRN 10/07/14 03/08/18 History acetaminophen 650 mg PO Q4H PRN PRN 10/26/15 03/08/18 History fludrocortisone 0.15 mg PO DAILY #90 tab-cap 03/17/16 03/08/18 History triamcinolone acetonide 1 gr TOPICAL BID #60 gm 03/17/16 03/08/18 History folic acid 1 mg PO DAILY 10/24/16 03/08/18 History montelukast 10 mg PO DAILY #90 tab-cap 01/03/17 03/08/18 Rx denosumab [Prolia] 60 mg SQ q6 months 03/15/17 03/08/18 History cholecalciferol (vitamin D3) 5,000 unit PO DAILY 04/19/17 03/08/18 History needle (disp) 21 G [Mccarley] #12 ea 11/16/17 03/08/18 Rx budesonide-formoterol HFA 160 1 puff INHALATION BID #3 canister 02/07/18 03/08/18 Rx mcg-4.5 mcg/actuation aerosol inhaler cyanocobalamin (vit B-12) 1,000 1,000 mcg IJ monthly #3 vial 02/07/18 03/08/18 Rx mcg/mL injection solution fluticasone 50 mcg/actuation nasal 2 spray NS DAILY #48 gm 02/07/18 03/08/18 Rx spray,suspension pantoprazole 40 mg tablet,delayed 40 mg PO DAILY #90 tab-cap 02/07/18 03/08/18 Rx release hydrocortisone 10 mg tablet 10 mg PO .COMPLEX 02/08/18 03/08/18 History citalopram 20 mg tablet 20 mg PO DAILY #90 tab 02/21/18 03/08/18 Rx lacosamide See Rx Instructions .ROUTE .COMPLEX 03/08/18 03/08/18 History Allergies Allergy/AdvReac Type Severity Reaction Status Date / Time latex Allergy Intermediate rash, Verified 03/08/18 09:55 itching plasma protein fraction Allergy Intermediate Hives Verified 03/08/18 09:55 acebutolol Allergy Unknown Verified 03/08/18 09:55 promethazine Allergy Unknown Verified 03/08/18 09:55 pseudoephedrine Allergy Unknown Verified 03/08/18 09:55 terazosin Allergy Unknown Verified 03/08/18 09:55 tramadol HCl [From Ultracet] Allergy Unknown Verified 03/08/18 09:55 venom-honey bee Allergy Verified 03/08/18 09:55 [bee venom (honey bee)] ferrous sulfate AdvReac Severe Stomach Verified 03/08/18 09:55 aches tamsulosin HCl [From Flomax] AdvReac Severe Dizziness/L Verified 03/08/18 09:55 ightheade Antihistamines - Alkylamine AdvReac Unknown affected Verified 03/08/18 09:55 prostate cefuroxime AdvReac Unknown daark urine Verified 03/08/18 09:55 plasma human Allergy Intermediate Hives Uncoded 03/08/18 09:55 Exam Narrative Exam Narrative: Elderly man soft-spoken no acute distress. Sclera anicteric. Pupils equal and reactive extraocular movements are normal. Dentures upper, no oral lesions visible. No JVD. Lungs are clear. Regular heart rhythm no S3-S4 or murmur heard. Active bowel sounds. Ostomy left mid abdomen, liquid green stool in the ostomy bag. Well-healed midline scar lower abdomen. Faint erythema in the skin folds in the suprapubic area. Genital exam was not done. Extremities warm 1+ pulses no pitting edema. He barely has antigravity power in both lower extremities but symmetrically. He has no pronator drift. There is a bit of increased tone in the upper extremities and a slight intention tremor with the left hand. Manager Telemarketing strength is symmetric. 2+ DTRs at the elbows absent at the ankles equivocal presence at the knees bilaterally. He is awake alert knows he is in the hospital and why. He is concerned about the cost of jail care. Results Labs : 03/08/18 06:25 03/08/18 06:25 Laboratory Results - last 24 hr 12/13/18 12/13/18 12/13/18 06:25 06:25 13:20 WBC 4.67 RBC 4.01 L Hgb 12.3 L Hct 37.4 L MCV 93.3 MCH 30.7 MCHC 32.9 RDW 15.0 H Plt Count 178 MPV 12.2 H Immature Gran % 0.4 Neutrophils % 52.1 Lymphocytes % 17.6 Monocytes % 24.6 Eosinophils % 5.1 Basophils % 0.2 Absolute Neutrophils 2.43 Absolute Lymphocytes 0.82 L Absolute Monocytes 1.15 H Absolute Eosinophils 0.24 Absolute Basophils 0.01 Sodium 136 Potassium 4.6 Chloride 99 Carbon Dioxide 24.7 Anion Gap 12.3 H BUN 16 D Creatinine 1.21 Estimated GFR/1.73 m2 58.46 Glucose 82 Calcium 9.1 Total Bilirubin 1.3 H AST 90 H ALT 109 H Alkaline Phosphatase 147 H Total Protein 7.5 Albumin 3.2 L Urine Color Yellow Urine Clarity Sl cloudy Urine pH 5.5 Ur Specific [place] 1.020 Urine Protein 30 H Urine Ketones Trace H Urine Blood Small H Urine Nitrite Negative Urine Bilirubin Negative Urine Urobilinogen 0.2 Ur Leukocyte Esterase Small H Urine RBC 10-20 H Urine WBC 20-50 Ur Epithelial Cells Negative Urine Crystals Few amorphous Urine Bacteria Few Urine Casts Negative Urine Mucus Negative Ur Culture Indicated? Yes Urine Glucose Negative Last Vital Signs Temp 36.6 C 03/08/18 19:41 Pulse 78 03/08/18 19:41 Resp 18 03/08/18 19:41 BP 144/65 H 03/08/18 19:41 Pulse Ox 97 03/08/18 19:41
--- NOTE | 2018-03-08 20:54 | HPE_ITS ---
Date of service: 03/08/18 Time of Service: 20:50 Assessment and Plan (1) Weakness: Current visit: Yes Status: Acute Weakness may be due to partially treated urinary tract infection or a combination of his chronic problems. Nonfocal exam and no change on his noncontrast head CT with regard to the subdural. History does not suggest apparent seizures as the cause of his slip from the chair at home. There may or may not be anything reversible about his weakness. We will do some lab investigation to rule out metabolic problems. PT consult. (2) Subdural hematoma: Current visit: Yes Status: Acute This appears to be chronic, unchanged on CT scan. (3) Seizure disorder: Current visit: Yes Status: Chronic None reported recently. Concerned about adverse effects from anticonvulsant and the dose is being slowly tapered down. We will continue his outpatient plan as he reports it to me, dropping his dose of Vimpat to 100 mg twice daily tomorrow (4) Abnormal LFTs: Current visit: Yes Status: Acute Unclear if this is related to medication or what role it might be playing with regard to weakness. He has had mild elevation in transaminase levels and alk phos and bilirubin off and on over the past years but only since January have a started to rise again. There may be a hepatic problem contributing to his anorexia. Will arrange for ultrasound of the abdomen for tomorrow. Repeat labs. (5) Uncomplicated asthma: Current visit: Yes Status: Acute This appears to be stable with his outpatient inhalers and Singulair, no changes planned. (6) DEVORAH on CPAP: Current visit: Yes Status: Acute Reports that he does not use CPAP regularly at home, machine broken and does not seem to be suffering from the lack of treatment. (7) Rheumatoid arthritis: Current visit: Yes Status: Acute Has not been active recently, no acute inflammatory changes found on exam now. (8) Depression: Current visit: Yes Status: Acute May be contributing to his sense of weakness. Continue outpatient dose of SSRI. (9) CKD (chronic kidney disease) stage 3, GFR 30-59 ml/min: Current visit: Yes Status: Acute Stable at present time, monitor renal function episodically. (10) Adrenal insufficiency: Current visit: Yes Status: Acute Appears to be stable on current replacement of hydrocortisone and fludrocortisone. No changes planned. (11) H/O ulcerative colitis: Current visit: Yes Status: Chronic Routine monitoring of stool output and ostomy care. (12) UTI (lower urinary tract infection): Current visit: Yes Status: Acute Not clear if he has an active UTI. He certainly has pyuria. I am not continuing antibiotics, monitor for fever. Await results of most recent urine culture which may be negative because of recent antibiotic use. (13) Urinary retention with incomplete bladder emptying: Current visit: Yes Status: Acute Bladder scanning shows a moderate postvoid residual but he is able to void. Await outcome of urine culture as noted above. Consider urology consultation if retention becomes a bigger issue. (14) Discharge planning issues: Current visit: Yes Status: Acute Plan is to transfer to the [facility] for long-term care. He has concerns regarding the cost. I reviewed with him again his CODE STATUS and he does want CPR initiated in the event of cardiopulmonary arrest. History of Present Illness Chief Complaint: Weakness Narrative: 77-year-old man with multiple chronic medical problems presenting to the emergency room from home because of weakness. He had recently been in the ER 2 days ago because of similar complaints, found to have pyuria and felt to have a urinary tract infection requiring admission but there were no beds available here and so he was transferred to [facility] where he was admitted. He was discharged yesterday on oral an tibiotics. This morning he was trying to get up from a chair, slipped to the floor, too weak to get up and so presented back to the emergency room. Nonfocal exam in the ER, stable subdural hematoma on CT scan, no obvious metabolic problems that would cause his weakness. He continues to have pyuria. His urine culture from his initial presentation grew mixed gram-positive organisms. Discussion was held with the [facility] who accepted the patient but by the time his workup was complete, was too late for them to admit him and so is being kept here overnight with the anticipation of going to the [facility] tomorrow. However, he has some unexplained abnormalities of his liver function tests which I b sanaeve merit further investigation. He reports a drop in appetite with some mild nausea but no vomiting. He denies any right upper quadrant pain. He has a history of cholelithiasis, gallstone pancreatitis and cholecystectomy. He has not had any pain in the right upper quadrant. He denies any fevers or chills. He reports generalized but not focal weakness. He has had a subdural hematoma this past fall, seizure that followed surgery for this, has been on anticonvulsant with the dose being tapered down due to concerns of adverse effects contributing to his malaise and weakness? He is quite certain he did not have a seizure today that led to him slipping from the chair. He did not strike his head. He acknowledges he has difficulty voiding, slow stream, no recent hematuria. He does not think there is been any significant change in his ostomy output and he seen no blood. Review of Systems Review of Systems As per HPI. No recent vision changes. No mouth sores. No trouble swallowing. No productive cough. No dyspnea with present low level of activity. No chest pain or palpitations. Nausea and decreased appetite but no vomiting. No abdominal pains. Slow urinary flow but no urgency. No claudication symptoms. No paresthesias. No recent fevers. His principal worry now is who will but after his who has dementia. PFSH Abnormal LFTs (Acute) Seizure disorder (Chronic) Subdural hematoma (Acute) Urinary retention with incomplete bladder emptying (Acute 11/06/15) Ulcerative colitis (Acute 11/06/15) Rheumatoid arthritis (Acute 11/06/15) DEVORAH on CPAP (Acute 11/06/15) Depression (Acute 08/14/17) CKD (chronic kidney disease) stage 3, GFR 30-59 ml/min (Acute 11/06/15) Adrenal insufficiency (Acute 05/15/17) Costilla's disease (Chronic) H/O ulcerative colitis (Chronic) Asthma (Chronic) Abdominal wall fistula CKD (chronic kidney disease) COPD (chronic obstructive pulmonary disease) Cholelithiasis Chronic deep vein thrombosis (DVT) Hypertension Ileostomy in place Ulcerative colitis Cholecystectomy (02/15/16) Extraction of cataract (07/28/16) Fracture, Closed Treatment (02/15/16) Total colectomy (09/25/97) Transurethral prostatectomy (11/24/14) cystoureteroscopy,lithotrypsy (05/11/15) hernia repair (04/08/99) proctectomy (11/23/98) repair retinal breaks (12/24/03) transsphenoidal hypophysectomy (11/15/93) Family History Mother Stroke Father No problems noted. Sister No problems noted. Brother No problems noted. Brother Diabetes ASCVD (arteriosclerotic cardiovascular disease) Brother No problems noted. Sister Diabetes Sister No problems noted. Other Arthritis Social History Smoking/Tobacco Use Status: Former Tobacco Use alcohol intake: never substance use type: does not use Meds Home Medications Medication Instructions Recorded Confirmed Type epinephrine 0.3 mg SUB-Q PRN PRN 10/07/14 03/08/18 History acetaminophen 650 mg PO Q4H PRN PRN 10/26/15 03/08/18 History fludrocortisone 0.15 mg PO DAILY #90 tab-cap 03/17/16 03/08/18 History triamcinolone acetonide 1 gr TOPICAL BID #60 gm 03/17/16 03/08/18 History folic acid 1 mg PO DAILY 10/24/16 03/08/18 History montelukast 10 mg PO DAILY #90 tab-cap 01/03/17 03/08/18 Rx denosumab [Prolia] 60 mg SQ q6 months 03/15/17 03/08/18 History cholecalciferol (vitamin D3) 5,000 unit PO DAILY 04/19/17 03/08/18 History needle (disp) 21 G [[place]] #12 ea 11/16/17 03/08/18 Rx budesonide-formoterol HFA 160 1 puff INHALATION BID #3 canister 02/07/18 03/08/18 Rx mcg-4.5 mcg/actuation aerosol inhaler cyanocobalamin (vit B-12) 1,000 1,000 mcg IJ monthly #3 vial 02/07/18 03/08/18 Rx mcg/mL injection solution fluticasone 50 mcg/actuation nasal 2 spray NS DAILY #48 gm 02/07/18 03/08/18 Rx spray,suspension pantoprazole 40 mg tablet,delayed 40 mg PO DAILY #90 tab-cap 02/07/18 03/08/18 Rx release hydrocortisone 10 mg tablet 10 mg PO .COMPLEX 02/08/18 03/08/18 History citalopram 20 mg tablet 20 mg PO DAILY #90 tab 02/21/18 03/08/18 Rx lacosamide See Rx Instructions .ROUTE .COMPLEX 03/08/18 03/08/18 History Allergies Allergy/AdvReac Type Severity Reaction Status Date / Time latex Allergy Intermediate rash, Verified 03/08/18 09:55 itching plasma protein fraction Allergy Intermediate Hives Verified 03/08/18 09:55 acebutolol Allergy Unknown Verified 03/08/18 09:55 promethazine Allergy Unknown Verified 03/08/18 09:55 pseudoephedrine Allergy Unknown Verified 03/08/18 09:55 terazosin Allergy Unknown Verified 03/08/18 09:55 tramadol HCl [From Ultracet] Allergy Unknown Verified 03/08/18 09:55 venom-honey bee Allergy Verified 03/08/18 09:55 [bee venom (honey bee)] ferrous sulfate AdvReac Severe Stomach Verified 03/08/18 09:55 aches tamsulosin HCl [From Flomax] AdvReac Severe Dizziness/L Verified 03/08/18 09:55 ightheade Antihistamines - Alkylamine AdvReac Unknown affected Verified 03/08/18 09:55 prostate cefuroxime AdvReac Unknown daark urine Verified 03/08/18 09:55 plasma human Allergy Intermediate Hives Uncoded 03/08/18 09:55 Exam Narrative Exam Narrative: Elderly man soft-spoken no acute distress. Sclera anicteric. Pupils equal and reactive extraocular movements are normal. Dentures upper, no oral lesions visible. No JVD. Lungs are clear. Regular heart rhythm no S3-S4 or murmur heard. Active bowel sounds. Ostomy left mid abdomen, liquid green stool in the ostomy bag. Well-healed midline scar lower abdomen. Faint erythema in the skin folds in the suprapubic area. Genital exam was not done. Extremities warm 1+ pulses no pitting edema. He barely has antigravity power in both lower extremities but symmetrically. He has no pronator drift. There is a bit of increased tone in the upper extremities and a slight intention tremor with the left hand. [employer] Examiner strength is symmetric. 2+ DTRs at the elbows absent at the ankles equivocal presence at the knees bilaterally. He is awake alert knows he is in the hospital and why. He is concerned about the cost of [facility] care. Results Labs : 03/08/18 06:25 03/08/18 06:25 Laboratory Results - last 24 hr 03/08/18 03/08/18 03/08/18 06:25 06:25 13:20 WBC 4.67 RBC 4.01 L Hgb 12.3 L Hct 37.4 L MCV 93.3 MCH 30.7 MCHC 32.9 RDW 15.0 H Plt Count 178 MPV 12.2 H Immature Gran % 0.4 Neutrophils % 52.1 Lymphocytes % 17.6 Monocytes % 24.6 Eosinophils % 5.1 Basophils % 0.2 Absolute Neutrophils 2.43 Absolute Lymphocytes 0.82 L Absolute Monocytes 1.15 H Absolute Eosinophils 0.24 Absolute Basophils 0.01 Sodium 136 Potassium 4.6 Chloride 99 Carbon Dioxide 24.7 Anion Gap 12.3 H BUN 16 D Creatinine 1.21 Estimated GFR/1.73 m2 58.46 Glucose 82 Calcium 9.1 Total Bilirubin 1.3 H AST 90 H ALT 109 H Alkaline Phosphatase 147 H Total Protein 7.5 Albumin 3.2 L Urine Color Yellow Urine Clarity Sl cloudy Urine pH 5.5 Ur Specific [place] 1.020 Urine Protein 30 H Urine Ketones Trace H Urine Blood Small H Urine Nitrite Negative Urine Bilirubin Negative Urine Urobilinogen 0.2 Ur Leukocyte Esterase Small H Urine RBC 10-20 H Urine WBC 20-50 Ur Epithelial Cells Negative Urine Crystals Few amorphous Urine Bacteria Few Urine Casts Negative Urine Mucus Negative Ur Culture Indicated? Yes Urine Glucose Negative Last Vital Signs Temp 36.6 C 03/08/18 19:41 Pulse 78 03/08/18 19:41 Resp 18 03/08/18 19:41 BP 144/65 H 03/08/18 19:41 Pulse Ox 97 03/08/18 19:41
[2018-03-08] MEDS: Enoxaparin 40 MG/0.4 ML SYR SC (21:54)
[2018-03-08] MEDS: Lacosamide 100 MG TAB PO (21:54)
[2018-03-08] MEDS: Fluticasone NASAL SPRAY 16 GM BTL NS (22:37)
[2018-03-08] MEDS: Budesonide/Formoterol 160/4.5 6 GM 60 PUFF INH IH (22:38)
[2018-03-09 00:09] VITALS: BP 113/61; PULSE 76; RESP 16; TEMP 36.2; O2SAT 98
[2018-03-09 03:02] VITALS: BP 116/67; PULSE 79; RESP 16; TEMP 36.8; O2SAT 94
[2018-03-09 07:33] LABS: ALT 100 U/L (12-78); AST 87 U/L (15-37); Albumin 3.1 g/dL (3.4-5.0); Alkaline Phosphatase 130 U/L (46-116); Anion Gap 12.6 mmol/L (3-11); BUN 18 mg/dL (7-18); Bilirubin, Total 1.2 mg/dL (0.2-1.0); CO2 24.4 mmol/L (21.0-32.0); CREATININE 1.13 mg/dL (0.70-1.30); Calcium 9.1 mg/dL (8.5-10.1); Chloride 99 mmol/L (98-107); Glucose 83 mg/dL (70-100); Potassium 4.3 mmol/L (3.5-5.1); Sodium 136 mmol/L (136-145); Total Protein 7.1 g/dL (6.4-8.2)
--- NOTE | 2018-03-09 07:54 | DI.US_ITS ---
SYMPTOM/DIAGNOSIS: ELEVATED LFTS AND BILI ABDOMEN ULTRASOUND: Comparison is made with CT abdomen and pelvis dated 25 April 2017. The liver was somewhat difficult to visualize due to location beneath the ribs. No focal liver abnormalities or enlargement are seen. The common bile duct is normal in diameter. The patient is status post cholecystectomy. No right upper quadrant fluid is seen. There are two cysts in the right kidney. A stone is noted in the upper to mid right kidney. There is no evidence of hydronephrosis. There is prominent medullary fat. The spleen is normal in size. The aorta shows calcification and is normal in diameter. IMPRESSION: Status post cholecystectomy, No gross evidence of a liver abnormality. Right renal calculus and renal cysts. No evidence of hydronephrosis.
[2018-03-09 08:09] VITALS: BP 118/73; PULSE 97; RESP 16; TEMP 36.3; O2SAT 98
[2018-03-09 08:13] LABS: TSH (W/Ref FT4) 1.68 uIU/mL (0.358-3.74)
[2018-03-09 08:16] LABS: Vitamin B12 > 2000 pg/mL (193-986)
[2018-03-09] MEDS: Folic Acid 1 MG TAB PO (08:35)
[2018-03-09] MEDS: Lacosamide 100 MG TAB PO (08:35)
[2018-03-09] MEDS: Montelukast 10 MG TAB PO (08:35)
[2018-03-09] MEDS: Hydrocortisone 10 MG TAB 25 MG PO (08:35)
[2018-03-09] MEDS: Fludrocortisone 0.1 MG TAB 0.15 MG PO (08:35)
[2018-03-09] MEDS: Citalopram 20 MG TAB PO (08:35)
[2018-03-09] MEDS: Pantoprazole 40 MG TABCR PO (08:35)
--- NOTE | 2018-03-09 11:07 | PDOC.CMIN ---
- If Service Date Differs Date of service: 03/09/18 Time of Service: 11:07 Care Management Initial Assess REASON FOR HOSPITALIZATION:: Weakness, Pyruia. PAST MEDICAL HISTORY/PAST SURGICAL HISTORY:: Abdominal wall fistula, Arthur's disease, asthma, adrenal insufficiency, cholelithiasis, chronic DVT, CKD stage III, COPD, depression, hx. ulcerative colitis, HTN, ileostomy, DEVORAH, RA, seizure disorder, RA, subdural hematoma. Surgical hx: cholecystectomy, cystoureteroscopy, lithotrypsy, extraction of cataract, distal right radius fracture, hernia repair, colectomy, transsphenoidal hypophysectomy, transurethral prostatectomy. ADVANCE DIRECTIVES:: On file at [facility]. Has patient been provided with information about the portal?: Yes Did the patient sign up for the portal?: No CODE STATUS:: Full Code INSURANCE COVERAGE / FINANCIAL ISSUES:: [employer], Medicare. CURRENT HOME/COMMUNITY SERVICES/EQUIPMENT:: No current home or community services. PRIMARY CARE PHYSICIAN:: Sheeba Morelos. POTENTIAL DISCHARGE NEEDS:: Follow up appointment with PCP. PATIENT/FAMILY EDUCATION NEEDS:: Discharge education, any limitations, and follow up plan of care. Ask Me Three discussion. ANTICIPATED BARRIERS TO DISCHARGE:: No anticipated barriers to discharge. TRANSPORTATION:: Liang will transport via [facility] at 1300. PLAN:: Liang will discharge to the [facility] when medically ready per MD. will continue to offer support to patient, family, and care team regarding discharge planning and disposition.
--- NOTE | 2018-03-09 11:15 | INITIAL_ITS ---
- If Service Date Differs Date of service: 03/09/18 Time of Service: 11:07 Care Management Initial Assess REASON FOR HOSPITALIZATION:: Weakness, Pyruia. PAST MEDICAL HISTORY/PAST SURGICAL HISTORY:: Abdominal wall fistula, Arthur's disease, asthma, adrenal insufficiency, cholelithiasis, chronic DVT, CKD stage III, COPD, depression, hx. ulcerative colitis, HTN, ileostomy, DEVORAH, RA, seizure disorder, RA, subdural hematoma. Surgical hx: cholecystectomy, cyst oureteroscopy, lithotrypsy, extraction of cataract, distal right radius fracture, hernia repair, colectomy, transsphenoidal hypophysectomy, transurethral prostatectomy. ADVANCE DIRECTIVES:: On file at [facility]. Has patient been provided with information about the portal?: Yes Did the patient sign up for the portal?: No CODE STATUS:: Full Code INSURANCE COVERAGE / FINANCIAL ISSUES:: [employer], Medicare. CURRENT HOME/COMMUNITY SERVICES/EQUIPMENT:: No current home or community services. PRIMARY CARE PHYSICIAN:: Sheeba Morelos. POTENTIAL DISCHARGE NEEDS:: Follow up appointment with PCP. PATIENT/FAMILY EDUCATION NEEDS:: Discharge education, any limitations, and follow up plan of care. Ask Me Three discussion. ANTICIPATED BARRIERS TO DISCHARGE:: No anticipated barriers to discharge. TRANSPORTATION:: Liang will transport via [facility] at 1300. PLAN:: Liang [place] [facility] [place] [place] medically ready per MD. will continue to offer support to patient, family, and care team regarding discharge planning and disposition.
--- NOTE | 2018-03-09 11:16 | PDOC.CMDIS ---
- If Service Date Differs Date of service: 03/09/18 Time of Service: 11:16 LACE Index Scoring Tool - Questions: Length of Stay (in days): 2 Acuity (Admit via E.D.?): Yes Comorbidities: Liver or Renal Disease Care Management Discharge Reason for Hospitalization: Weakness, Pyruia. Discharge Plan: Liang will discharge to the [facility] when medically ready per MD. He will transport via [facility]. Patient/Family Education Needs: Discharge education, any limitiations, and follow up plan of care. Ask Me Three discussion. Services Needed at Discharge: [facility] ([facility] . )
--- NOTE | 2018-03-09 11:17 | DSE_ITS ---
Date of service: 03/09/18 Time of Service: 11:15 DS: Diagnosis Discharge Diagnosis (1) Weakness: Status: Acute (2) Subdural hematoma: Status: Acute (3) Seizure disorder: Status: Chronic (4) Abnormal LFTs: Status: Acute (5) Uncomplicated asthma: Status: Acute (6) DEVORAH on CPAP: Status: Acute (7) Rheumatoid arthritis: Status: Acute (8) Depression: Status: Acute (9) CKD (chronic kidney disease) stage 3, GFR 30-59 ml/min: Status: Acute (10) Adrenal insufficiency: Status: Acute (11) H/O ulcerative colitis: Status: Chronic (12) UTI (lower urinary tract infection): Status: Acute (13) Urinary retention with incomplete bladder emptying: Status: Acute Discharge Plan Disposition Patient Disposition: SNF (LEVEL 1) [facility] Condition: Stable Discharge Details Reason For Visit: WEAKNESS, HERMANUIA Admit Date/Time: 03/08/18 18:43 Admit Provider: Jose Black Attending Provider: Jose Black Primary Care Provider: Sheeba Morelos Hospital Course Hospital Course: Liang is a very pleasant 77-year-old male with multiple medical comorbidities including chronic subdural hematoma with subsequent seizure disorder, DEVORAH (does not used CPAP regularly), stable asthma, RA, depression, CKD, adrenal insufficiency and ulcerative colitis who presented to the emergency department yesterday from home due to reports of weakness. He had been in the emergency department 2 days prior with similar complaints. At that time he was noted to have pyuria and felt to have a urinary tract infection requiring admission but due to no beds being available here at [facility], he was transferred to [facility] for admission. He was discharged from [facility] the day prior to his presentation to the emergency department on oral antibiotics. Yesterday morning, he was trying to get up from a chair, he slipped to the floor and was too weak to get back up which necessitated his presentation back to the emergency department. He had a nonfocal examination in the emergency department. He did have a head CT which showed a stable subdural hematoma. He continued to have pyuria on urinalysis. His urine culture from his initial presentation grew mixed gram-positive organisms. He was accepted for admission at the [facility], however, it was too late for him to be transferred last evening so he was admitted on observation overnight and will transition to the [facility] today. Of note, he did have some abnormalities of his liver function test in the emergency department. He denies any right upper quadrant pain. He reported eating his breakfast this morning, no nausea vomiting or diarrhea following. His liver function tests improved slightly today he did have an abdominal ultrasound. The radiologist, Sloane Bennett, verbally reported no gross abnormalities. He will need follow-up liver function testing in 3 days time. Regard to the suspected urinary tract infection, review of previous urine cultures spanning over approximately 2 years note consistent findings of mixed gram-positive flako. His urine cultures will need to be monitored. He will not be discharged on antibiotics. Consider follow-up with urology. He transitions today to the [facility] for short-term rehab prior to his return home, where he lives with his . Home Meds and New Rx's Prescriptions: New Vimpat 100 mg Tablet 100 mg PO BID Qty: 0 RF: 0 Continued Symbicort 160-4.5 mcg/actuation HFA aerosol inhaler 1 puff Inhalation BID Qty: 3 RF: 3 cyanocobalamin (vitamin B-12) 1,000 mcg/mL solution 1,000 mcg IJ monthly Qty: 3 RF: 3 fluticasone 50 mcg/actuation spray,suspension 2 spray NS DAILY Qty: 48 RF: 3 pantoprazole 40 mg tablet,delayed release (DR/EC) 40 mg PO DAILY Qty: 90 RF: 3 fludrocortisone 0.1 MG tablet 0.15 mg PO DAILY Qty: 90 RF: 3 triamcinolone acetonide 15 GM cream 1 gr Topical BID Qty: 60 RF: 6 folic acid 1 MG tablet 1 mg PO DAILY RF: 0 montelukast 10 MG tablet 10 mg PO DAILY Qty: 90 RF: 3 Prolia 60 MG/1 ML syringe 60 mg SQ q6 months RF: 0 cholecalciferol (vitamin D3) 2,000 UNIT tablet 5,000 unit PO DAILY RF: 0 hydrocortisone [Cortef] 10 mg tablet 10 mg PO .COMPLEX RF: 0 citalopram 20 mg tablet 20 mg PO DAILY Qty: 90 RF: 3 epinephrine 0.3 MG/SYR auto-injector 0.3 mg Sub-Q PRN PRNRF: 0 Discontinued acetaminophen 325 MG tablet 650 mg PO Q4H PRN PRNRF: 0 lacosamide 150 mg tablet See Rx Instructions .ROUTE .COMPLEX RF: 0 No Action BD Regular Bevel Spencer 1 EACH needle 1 ea Miscellaneous monthly Qty: 12 RF: 0 Discharge Instructions Instructions: Fall Prevention for Older Adults (GEN) Stand Alone Forms: Nursing Discharge Form Referrals: Sheeba Morelos NP [Primary Care Provider] - Activity:: Activity as Tolerated Equipment/Supplies:: No Equipment Needed Diet:: As Tolerated Discharge Orders Discharge Orders: Discharge Order (Routine); Ordered 03/09/18 Ordered By: Zandra Díaz Other Ambulatory Orders: Complete Blood Count No Diff (Routine) Location: Determined by Patient Ordered By: Zandra Díaz Comprehensive Metabolic Panel (Routine) Location: Determined by Patient Ordered By: Zandra Díaz Exam Narrative Exam Narrative: General: elderly man in NAD, alert and oriented, answers questions appropriately. Slow moving. HEENT: normocehpalic, PERRL, EOMI. Mucous membranes moist, upper dentures. Neck: supple, no JVD. Respiratory: respirations even and unlabored. Lung sounds clear to auscultation throughout. Cardiovascular: Heart rate regular, no murmur noted. Abdomen: soft, nontender on plapation, no masses appreciated. He has scars on h is abdomen, colostomy bag in place, draining, stoma pink. Extremities: warm, well perfused, no clubbing, cyanosis or edema. Peripheral pulses palpable. Moves extremities equally, decreased strength. DS: Data Vitals/I&O Vitals and I&O: Vital Signs Temperature 36.8 C 03/09/18 03:02 Temperature Source Tympanic 03/09/18 03:02 Pulse 79 03/09/18 03:02 Pulse Rhythm Regular 03/08/18 19:41 Pulse 76 03/08/18 11:50 Respiratory Rate 16 03/09/18 03:02 Respiratory Effort Non-Labored 03/08/18 19:41 Respiratory Depth Normal 03/08/18 19:41 Respiratory Pattern Normal 03/08/18 19:41 Blood Pressure 116/67 03/09/18 03:02 Blood Pressure Mean 74 03/08/18 09:45 Pulse Oximetry 94 L 03/09/18 03:02 Oxygen Delivery Method Room Air 03/09/18 03:02 Oxygen Flow Rate 0 03/09/18 03:02 Pain Level 0 03/09/18 08:09 Intake & Output 03/08/18 03/08/18 03/09/18 11:59 23:59 11:59 Intake Total 180 / 380 200 / 380 360 / 360 Output Total 30 / 1075 1045 / 1075 500 / 500 Balance 150 / -695 -845 / -695 -140 / -140 Weight 81.647 kg 81.647 kg Intake: Oral 180 / 380 200 / 380 360 / 360 Output: Urine 30 / 775 745 / 775 300 / 300 Stool 300 / 300 200 / 200 Other: Urine Color Light Mayi Dark Mayi Urine Appearance Clear Cloudy Comment PVR Pt. voided 178 mL of urine and was bladder scanned for a PVR average of 8 mL of urine (25/0/0). RN will reassess as necessary. Voiding Methods Urinal Urinal Completed studies during hospitalization [Text1]: 03/08/18: NONCONTRAST HEAD CT: Comparison is made with 05 Mar 2018. There has been no change in the size of the left subdural hematoma. No acute hemorrhage is seen. A Craniotomy defect is again noted. There is no evidence of infarct. The ventricles are unchanged in size. IMPRESSION: Stable appearance of left subdural collection. No acute abnormality. Pending studies at discharge: ABDOMINAL ULTRASOUND OFFICIAL READ PENDING. Labs on day of discharge: Labs from last 24 hours 03/09/18 03/09/18 03/08/18 06:40 06:40 13:20 Sodium 136 Potassium 4.3 Chloride 99 Carbon Dioxide 24.4 Anion Gap 12.6 H BUN 18 Creatinine 1.13 Estimated GFR/1.73 m2 >= 60.00 Glucose 83 Calcium 9.1 Total Bilirubin 1.2 H AST 87 H ALT 100 H Alkaline Phosphatase 130 H Total Protein 7.1 Albumin 3.1 L Vitamin B12 > 2000 H TSH 1.68 Urine Color Yellow Urine Clarity Sl cloudy Urine pH 5.5 Ur Specific [place] 1.020 Urine Protein 30 H Urine Ketones Trace H Urine Blood Small H Urine Nitrite Negative Urine Bilirubin Negative Urine Urobilinogen 0.2 Ur Leukocyte Esterase Small H Urine RBC 10-20 H Urine WBC 20-50 Ur Epithelial Cells Negative Urine Crystals Few amorphous Urine Bacteria Few Urine Casts Negative Urine Mucus Negative Ur Culture Indicated? Yes Urine Glucose Negative 03/08/18 13:20 Urine - Cath Not Specified Urine Culture - Pending Preliminary micro results at discharge 03/08/18 13:20 Urine Culture - Pending Urine - Cath Not Specified PFSH Medical History Abnormal LFTs (Acute) Seizure disorder (Chronic) Subdural hematoma (Acute) Urinary retention with incomplete bladder emptying (Acute 11/06/15) Ulcerative colitis (Acute 11/06/15) Rheumatoid arthritis (Acute 11/06/15) DEVORAH on CPAP (Acute 11/06/15) Depression (Acute 08/14/17) CKD (chronic kidney disease) stage 3, GFR 30-59 ml/min (Acute 11/06/15) Adrenal insufficiency (Acute 05/15/17) [place]'s disease (Chronic) H/O ulcerative colitis (Chronic) Asthma (Chronic) Abdominal wall fistula CKD (chronic kidney disease) COPD (chronic obstructive pulmonary disease) Cholelithiasis Chronic deep vein thrombosis (DVT) Hypertension Ileostomy in place Ulcerative colitis Cholecystectomy (02/15/16) Extraction of cataract (07/28/16) Fracture, Closed Treatment (02/15/16) Total colectomy (09/25/97) Transurethral prostatectomy (11/24/14) cystoureteroscopy,lithotrypsy (05/11/15) hernia repair (04/08/99) proctectomy (11/23/98) repair retinal breaks (12/24/03) transsphenoidal hypophysectomy (11/15/93) Family History Mother Stroke Father No problems noted. Sister No problems noted. Brother No problems noted. Brother Diabetes ASCVD (arteriosclerotic cardiovascular disease) Brother No problems noted. Sister Diabetes Sister No problems noted. Other Arthritis Social History Smoking/Tobacco Use Status: Former Tobacco Use alcohol intake: never substance use type: does not use
[2018-03-09] MEDS: Budesonide/Formoterol 160/4.5 6 GM 60 PUFF INH IH (11:36)
== END 2018-03-09 13:06 | disposition skilled nursing facility (03) ==
LOC: ER 18:50 → MS 19:29
PROVIDERS: Emergency Medicine; Admitting Provider Internal Medicine; Emergency Provider Student in an Organized Health Care Education/Training Program; PCP Nurse Practitioner; Visit Provider Internal Medicine
DX: R53.1 Weakness (principal); N39.0 Urinary tract infection, site not specified; G40.802 Other epilepsy, not intractable, without status epilepticus; I62.03 Nontraumatic chronic subdural hemorrhage; G47.33 Obstructive sleep apnea (adult) (pediatric); R94.5 Abnormal results of liver function studies; J45.909 Unspecified asthma, uncomplicated; M06.9 Rheumatoid arthritis, unspecified; F32.9 Major depressive disorder, single episode, unspecified; N18.3 Chronic kidney disease, stage 3 (moderate); E27.40 Unspecified adrenocortical insufficiency; R33.9 Retention of urine, unspecified; Z93.3 Colostomy status
CPT/HCPCS: 36415; 51701; 80053; 87077; 94640; 99220; 99239; 99285; J1650; 70450; 76700; 81003; 81015; 82607; 84443; 85025; 87086; 99217; 99284; G0378

== ENCOUNTER 2018-03-11 11:46 | Emergency (ER) | payer MEDICARE, OTHER, SELFPAY ==
[2018-03-11] VITALS (30 sets, daily range): BP systolic 109–132; BP diastolic 56–69; PULSE 72–80; RESP 14–36; TEMP 36.6–36.7; O2SAT 87–100
--- NOTE | 2018-03-11 11:51 | DI.CT_ITS ---
SYMPTOM/DIAGNOSIS: ABD PAIN, CHANGE IN STOOL TO COLOSTOMY ABDOMEN AND PELVIC CT: CT scan of the abdomen and pelvis was performed without intravenous contrast or oral contrast material. Comparison is made with 04/25/17. Mild dependent atelectatic changes are seen in the lung bases. The lack of IV contrast does limit evaluation of the abdominal and pelvic organs. The unenhanced liver, spleen, pancreas, bile ducts and adrenal glands are all unremarkable. The patient is status post cholecystectomy. There is a non obstructing, 0.9 cm. stone in the right kidney. There are right renal, parapelvic and cortical cysts noted. No hydronephrosis or ureterolithiasis is seen. The urinary bladder is intact. The patient appears to be status post prostatectomy. The abdominal aorta is of normal caliber. No aneurysmal dilatation is seen. No significant abdominal or pelvic adenopathy, ascites or pneumoperitoneum is present. The patient is status post colectomy with a colostomy seen in the left lower quadrant. No evidence of obstruction is seen. No findings to suggest an acute appendicitis are present. The bones appear osteopenic with moderate degenerative changes throughout. Old compression deformities are seen in the spine. IMPRESSION: No evidence of an acute abdomen.
--- NOTE | 2018-03-11 11:56 | ED.GENADUL_ITS ---
Discharge Plan Disposition Patient Disposition: ICF (LEVEL 2) [facility] Condition: Improving Discharge Details Chief Complaint: Abd Prob Clinical Impression: Abdominal pain Primary Care Provider: Sheeba Morelos ED Provider: Sixto Costa Home Meds and New Rx's Prescriptions: No Action Symbicort 160-4.5 mcg/actuation HFA aerosol inhaler 1 puff Inhalation BID Qty: 3 RF: 3 cyanocobalamin (vitamin B-12) 1,000 mcg/mL solution 1,000 mcg IJ monthly Qty: 3 RF: 3 fluticasone 50 mcg/actuation spray,suspension 2 spray NS DAILY Qty: 48 RF: 3 pantoprazole 40 mg tablet,delayed release (DR/EC) 40 mg PO DAILY Qty: 90 RF: 3 fludrocortisone 0.1 MG tablet 0.15 mg PO DAILY Qty: 90 RF: 3 triamcinolone acetonide 15 GM cream 1 gr Topical BID Qty: 60 RF: 6 folic acid 1 MG tablet 1 mg PO DAILY RF: 0 montelukast 10 MG tablet 10 mg PO DAILY Qty: 90 RF: 3 Prolia 60 MG/1 ML syringe 60 mg SQ q6 months RF: 0 cholecalciferol (vitamin D3) 2,000 UNIT tablet 5,000 unit PO DAILY RF: 0 BD Regular Bevel Wilson 1 EACH needle 1 ea Miscellaneous monthly Qty: 12 RF: 0 hydrocortisone [Cortef] 10 mg tablet 10 mg PO .COMPLEX RF: 0 citalopram 20 mg tablet 20 mg PO DAILY Qty: 90 RF: 3 epinephrine 0.3 MG/SYR auto-injector 0.3 mg Sub-Q PRN PRNRF: 0 Vimpat 100 mg Tablet 100 mg PO BID Qty: 0 RF: 0 Discharge Instructions Instructions: Clear Liquid Diet (ED), Abdominal Pain (ED) Additional Instructions: Clear liquid diet and advance as tolerated. Referrals: [facility] Emergency Dept. [Outside] - Return if symptoms worsen Medical Decision Making Pt states colostomy but history is ileostomy. However he does say his stool was formed yesterday. He has liquid stool in the bag now. His abdomen is quite scarred and to me the stoma insertion point is low in the abdomen. Either way I will noncontrast CT his abdomen because of his diminished renal function. He tells me he is feeling a little better so we will hold off on pain medications. Apprised Liang and his family of lab findings and CT impression. tells me that they were told no more antibiotics for bacteria in urine. Last antibiotics while he was in hospital last. I suspect his diarrhea is from gastroenteritis, recent antibiotic use or resolved ileus. Advised we will wait to see what his urine cultures look like before we administer antibiotics if needed. He still has pain but declines pain medications. He agrees to plan of care of liquid diet and advance as tolerated. Hold on antibiotics. He will return to the [facility]. Advised to return to ED if symptoms worsen. Imaging Data Radiologic Study: Imaging: CT Scan Radiologist's impression: v-rad: No acute abnormality seen to account for symptoms. No evidence to suggest obstruction. Lab Data Lab results reviewed: Yes I reviewed the patient's lab results. Lab results narrative: Labs consistent with previous months lab value. No acute abnormality requiring immediate intervention. HPI General Mode of arrival: EMS . Date/Time Provider Initiated Documentation: 03/11/18 11:46 . Limitations to Documentation: no limitations . Information obtained by: patient . History of Present Illness 77 year old M presents to the emergency department with the chief complaint of abdominal pain, HPI Narrative: 77 y/o came in via [facility] from the [facility] with c/o abdominal pain and blockage. He was awakened at three am this morning with acute abdominal pain. He noticed in his colostomy bag was all liquid stool. The pain was persistent. Denies any N/V. Has not eaten anything since yesterday. Denies a fever. Feels like blockage he has had in the past. Last blockage two years ago. Denies any cp, sob, or back pain. Has significant history of ulcerative colitis. He was just discharged from [facility] inpatient two days ago. Please see discharged summary provided below. Hospital Course: Liang is a very pleasant 77-year-old male with multiple medical comorbidities including chronic subdural hematoma with subsequent seizure disorder, DEVORAH (does not used CPAP regularly), stable asthma, RA, depression, CKD, adrenal insufficiency and ulcerative colitis who presented to the emergency department yesterday from home due to reports of weakness. He had been in the emergency department 2 days prior with similar complaints. At that time he was noted to have pyuria and felt to have a urinary tract infection requiring admission but due to no beds being available here at [facility], he was transferred to [facility][1] for admission. He was discharged from [facility] the day prior to his presentation to the emergency department on oral antibiotics. Yesterday morning, he was trying to get up from a chair, he slipped to the floor and was too weak to get back up which necessitated his presentation back to the emergency department. He had a nonfocal examination in the emergency department. He did have a head CT which showed a stable subdural hematoma. He continued to have pyuria on urinalysis. His urine culture from his initial presentation grew mixed gram-positive organisms. He was accepted for admission at the [facility], however, it was too late for him to be transferred last evening so he was admitted on observation overnight and will transition to the [facility] today. Of note, he did have some abnormalities of his liver function test in the emergency department. He denies any right upper quadrant pain. He reported eating his breakfast this morning, no nausea vomiting or diarrhea following. His liver function tests improved slightly today he did have an abdominal ultrasound. The radiologist, Sloane Bennett, verbally reported no gross abnormalities. He will need follow-up liver function testing in 3 days time. Regard to the suspected urinary tract infection, review of previous urine cultures spanning over approximately 2 years note consistent findings of mixed gram-positive flako. His urine cultures will need to be monitored. He will not be discharged on antibiotics. Consider follow-up with urology. He transitions today to the [facility] for short-term rehab prior to his return home, where he lives with his . Related Data Home Medications Medication Instructions Recorded Confirmed epinephrine 0.3 mg SUB-Q PRN PRN 10/07/14 03/11/18 fludrocortisone 0.15 mg PO DAILY #90 tab-cap 03/17/16 03/11/18 triamcinolone acetonide 1 gr TOPICAL BID #60 gm 03/17/16 03/11/18 folic acid 1 mg PO DAILY 10/24/16 03/11/18 montelukast 10 mg PO DAILY #90 tab-cap 01/03/17 03/11/18 denosumab [Prolia] 60 mg SQ q6 months 03/15/17 03/11/18 cholecalciferol (vitamin D3) 5,000 unit PO DAILY 04/19/17 03/11/18 needle (disp) 21 G [Wilson] #12 ea 11/16/17 03/08/18 budesonide-formoterol HFA 160 1 puff INHALATION BID #3 canister 02/07/18 03/11/18 mcg-4.5 mcg/actuation aerosol inhaler cyanocobalamin (vit B-12) 1,000 1,000 mcg IJ monthly #3 vial 02/07/18 03/11/18 mcg/mL injection solution fluticasone 50 mcg/actuation nasal 2 spray NS DAILY #48 gm 02/07/18 03/11/18 spray,suspension pantoprazole 40 mg tablet,delayed 40 mg PO DAILY #90 tab-cap 02/07/18 03/11/18 release hydrocortisone 10 mg tablet 10 mg PO .COMPLEX 02/08/18 03/11/18 citalopram 20 mg tablet 20 mg PO DAILY #90 tab 02/21/18 03/11/18 lacosamide [Vimpat] 100 mg PO BID #0 tab 03/09/18 03/11/18 Previous Rx's Medication Instructions Recorded montelukast 10 mg PO DAILY #90 tab-cap 01/03/17 needle (disp) 21 G [Wilson] #12 ea 11/16/17 budesonide-formoterol HFA 160 1 puff INHALATION BID #3 canister 02/07/18 mcg-4.5 mcg/actuation aerosol inhaler cyanocobalamin (vit B-12) 1,000 1,000 mcg IJ monthly #3 vial 02/07/18 mcg/mL injection solution fluticasone 50 mcg/actuation nasal 2 spray NS DAILY #48 gm 02/07/18 spray,suspension pantoprazole 40 mg tablet,delayed 40 mg PO DAILY #90 tab-cap 02/07/18 release citalopram 20 mg tablet 20 mg PO DAILY #90 tab 02/21/18 lacosamide [Vimpat] 100 mg PO BID #0 tab 03/09/18 Allergies Allergy/AdvReac Type Severity Reaction Status Date / Time latex Allergy Intermediate rash, Verified 03/11/18 11:47 itching plasma protein fraction Allergy Intermediate Hives Verified 03/11/18 11:47 acebutolol Allergy Unknown Verified 03/11/18 11:47 promethazine Allergy Unknown Verified 03/11/18 11:47 pseudoephedrine Allergy Unknown Verified 03/11/18 11:47 terazosin Allergy Unknown Verified 03/11/18 11:47 tramadol HCl [From Ultracet] Allergy Unknown Verified 03/11/18 11:47 venom-honey bee Allergy Verified 03/11/18 11:47 [bee venom (honey bee)] ferrous sulfate AdvReac Severe Stomach Verified 03/11/18 11:47 aches tamsulosin HCl [From Flomax] AdvReac Severe Dizziness/L Verified 03/11/18 11:47 ightheade Antihistamines - Alkylamine AdvReac Unknown affected Verified 03/11/18 11:47 prostate cefuroxime AdvReac Unknown daark urine Verified 03/11/18 11:47 plasma human Allergy Intermediate Hives Uncoded 03/11/18 11:47 General Stated Complaint: Abd Prob SANTOSH: 3 Review of Systems ENT Reports system reviewed and no additional complaints, except as docu Cardiovascular Reports system reviewed and no additional complaints, except as docu Respiratory Reports system reviewed and no additional complaints, except as docu Gastrointestinal Reports abdominal pain and Reports change in bowel habits (now watery stool in his colostomy) Genitourinary Reports system reviewed and no additional complaints, except as docu Musculoskeletal Reports system reviewed and no additional complaints, except as docu PFSH Medical History Abnormal LFTs (Acute) Seizure disorder (Chronic) Subdural hematoma (Acute) Urinary retention with incomplete bladder emptying (Acute 11/06/15) Ulcerative colitis (Acute 11/06/15) Rheumatoid arthritis (Acute 11/06/15) DEVORAH on CPAP (Acute 11/06/15) Depression (Acute 08/14/17) CKD (chronic kidney disease) stage 3, GFR 30-59 ml/min (Acute 11/06/15) Adrenal insufficiency (Acute 05/15/17) [place]'s disease (Chronic) H/O ulcerative colitis (Chronic) Asthma (Chronic) Abdominal wall fistula CKD (chronic kidney disease) COPD (chronic obstructive pulmonary disease) Cholelithiasis Chronic deep vein thrombosis (DVT) Hypertension Ileostomy in place Ulcerative colitis Social History Smoking/Tobacco Use Status: Former Tobacco Use alcohol intake: never substance use type: does not use Exam Const General: cooperative, comfortable and no acute distress Nutritional Appearance: thin Orientation: alert, awake and oriented x3 Other: non toxic HENMT Head: atraumatic Ears: hearing grossly normal bilaterally and external ears normal General nose exam: external nose normal and nares normal Eyes General: appearance normal, both eyes and all related structures Neck Neck: normal visual inspection, full ROM and no lymphadenopathy Chest Chest: normal inspection of the chest Resp Effort & Inspection: normal respiratory effort and able to speak in complete sentences Auscultation: clear to auscultation bilaterally Cardio Rate: regular rate Rhythm: regular rhythm GI Inspection: scar Palpation: soft and tender (diffuse around stoma and abdomen) Auscultation: hypoactive bowel sounds Male General Exam: Yes normal external exam Scrotum: scrotum normal Back/Spine/Pelvis Back: No back tenderness Cervical Spine: cervical ROM normal Thoracic/Lumbar Spine: thoracic and lumbar spine normal to inspection and thoraco-lumbar ROM normal Skin General skin exam: no rashes or lesions noted Extrem General: normal to inspection, full ROM and normal capillary refill Course Vital Signs Temperature 36.6 C 03/11/18 11:40 Pulse 76 03/11/18 11:40 Respiratory Rate 16 03/11/18 11:40 Blood Pressure 125/66 03/11/18 11:40 Pulse Oximetry 98 03/11/18 11:40 Temperature 36.6 C 03/11/18 11:40 Temperature Source Skin 03/11/18 11:40 Pulse 76 03/11/18 11:40 Respiratory Rate 16 03/11/18 11:40 Respiratory Effort Non-Labored 03/11/18 11:40 Blood Pressure 125/66 03/11/18 11:40 Blood Pressure Position Supine 03/11/18 11:40 Pulse Oximetry 98 03/11/18 11:40 Oxygen Delivery Method Room Air 03/11/18 11:40 Oxygen Flow Rate 0 03/11/18 11:40 Pain Level 5 03/11/18 11:40
[2018-03-11 12:02] LABS: Abs Immature Grans 0.02 k/cumm (0.0-0.09); Absolute Basophil Count 0.01 k/cumm (0.0-0.2); Absolute Eosinophil Count 0.15 k/cumm (0.0-0.7); Absolute Lymphocyte Count 0.49 k/cumm (1.2-3.4); Absolute Monocyte Count 0.77 k/cumm (0.11-0.7); Absolute Neutrophil Count 3.83 k/cumm (1.2-6.7); Basophils % 0.2; Eosinophils % 2.8; HCT 37.7 % (40.0-50.0); HGB 12.4 g/dL (13.5-17.5); Immature Grans % 0.4; Lymphocytes % 9.3; Mean Corp. HGB Concentration 32.9 g/dL (32.0-36.0); Mean Corpuscular Hemoglobin 30.7 pg (27.0-33.0); Mean Corpuscular Volume 93.3 fL (80-95); Mean Platelet Volume 10.9 fL (8.0-11.0); Monocytes % 14.6; Neutrophils % 72.7; Platelet Count 177 x1000/uL (130-400); RBC 4.04 m/cumm (4.50-6.00); RBC Distribution Width 15.2 % (11.8-14.1); White Blood Cell Count 5.27 k/cumm (4.4-10.8)
[2018-03-11] MEDS: Normal Saline 1,000 ML 125 ML IV (12:02)
[2018-03-11 12:14] LABS: ALT 109 U/L (12-78); AST 103 U/L (15-37); Albumin 3.4 g/dL (3.4-5.0); Alkaline Phosphatase 139 U/L (46-116); Anion Gap 10.3 mmol/L (3-11); BUN 19 mg/dL (7-18); Bilirubin, Total 1.2 mg/dL (0.2-1.0); CO2 27.7 mmol/L (21.0-32.0); CREATININE 1.31 mg/dL (0.70-1.30); Calcium 9.4 mg/dL (8.5-10.1); Chloride 98 mmol/L (98-107); Estimated GFR 53.34 (mL/min/1.73m2); Glucose 104 mg/dL (70-100); Magnesium 1.5 mg/dL (1.8-2.4); Potassium 4.5 mmol/L (3.5-5.1); Sodium 136 mmol/L (136-145); Total Protein 7.6 g/dL (6.4-8.2)
[2018-03-11 13:09] LABS: Bilirubin Negative (Negative); Blood Small (Negative); Clarity Sl Cloudy; Glucose Negative (Negative); Ketones Negative (Negative); Leukocyte Esterase Moderate (Negative); Nitrite Negative (Negative); Urobilinogen 0.2 EU/dL (Up TO 0.2); pH 5.5 (5-8)
[2018-03-11 13:16] LABS: C & S Indicated? Yes; WBC >50 HPF (0-5)
--- NOTE | 2018-03-11 13:25 | DI.VRAD_ITS ---
EXAM: CT Abdomen and Pelvis Without Contrast EXAM DATE/TIME: 03/11/2018 12:33 PM CLINICAL HISTORY: 77 years old, male; Pain; Abdominal pain; Generalized; Prior surgery; Surgery type: Colostomy; Patient HX: Abd pain and change in stool to colostomy; Additional info: PT sure it is a blockage TECHNIQUE: Axial computed tomography images of the abdomen and pelvis without contrast. Coronal and sagittal reformatted images were created and reviewed. COMPARISON: CT ABD PELVIS WO CONTRAST 04/25/2017 2:47 AM FINDINGS: Lower thorax: Mild left lower lobe atelectasis. There are dystrophic calcifications in the left ventricular wall and chordae tendineae. This is unchanged from previous exam. ABDOMEN: Liver: Normal. No mass. Gallbladder and bile ducts: Gallbladder absent. Pancreas: Normal. No ductal dilation. Spleen: Normal. No splenomegaly. Adrenals: Normal. No mass. Kidneys and ureters: Nonobstructing right renal upper pole calculus, parapelvic and cortical cysts noted. Stomach and bowel: Status post colectomy. Appendix: No evidence of appendicitis. PELVIS: Bladder: Unremarkable as visualized. Reproductive: Status post prostatectomy. ABDOMEN and PELVIS: Intraperitoneal space: Normal. No free air. No significant fluid collection. Bones/joints: There is moderate lumbar spondylosis. Compression deformities are unchanged from prior exam. Soft tissues: Unremarkable. Vasculature: Moderate atherosclerotic change present in the vasculature. Lymph nodes: Normal. No enlarged lymph nodes. Other findings: Left lower quadrant ostomy identified. IMPRESSION: No acute abnormality seen to account for symptoms. No evidence to suggest obstruction. COMMENT: Preliminary interpretation is based on receipt of 335 image(s). A final report will be issued subsequently. Dictated and Authenticated by: Floridalma France MD. Ordering:DINORAH Henson MD
[2018-03-11] MEDS: Normal Saline Flush 10 ML SYR IVP (14:56)
== END 2018-03-11 14:36 | disposition intermediate care facility (04) ==
PROVIDERS: Emergency Provider Nurse Practitioner Family; PCP Nurse Practitioner
DX: R10.9 Unspecified abdominal pain (principal); Z93.3 Colostomy status
CPT/HCPCS: 36415; 80053; 87077; 96360; 96361; 99284; 74176; 81003; 81015; 83735; 85025; 87086; 87186

== ENCOUNTER 2018-03-12 11:15 | Outpatient (REF) | payer MEDICARE, OTHER, SELFPAY ==
[2018-03-12 11:46] LABS: HCT 37.6 % (40.0-50.0); HGB 12.4 g/dL (13.5-17.5); Mean Corpuscular Hemoglobin 30.5 pg (27.0-33.0); Mean Corpuscular Volume 92.6 fL (80-95); Mean Platelet Volume 12.3 fL (8.0-11.0); Platelet Count 173 x1000/uL (130-400); RBC 4.06 m/cumm (4.50-6.00); RBC Distribution Width 15.2 % (11.8-14.1); White Blood Cell Count 5.87 k/cumm (4.4-10.8)
[2018-03-12 12:00] LABS: ALT 121 U/L (12-78); AST 119 U/L (15-37); Albumin 3.4 g/dL (3.4-5.0); Alkaline Phosphatase 135 U/L (46-116); Amylase 56 U/L (25-115); Anion Gap 12.8 mmol/L (3-11); BUN 18 mg/dL (7-18); Bilirubin, Total 1.3 mg/dL (0.2-1.0); CO2 25.2 mmol/L (21.0-32.0); CREATININE 1.25 mg/dL (0.70-1.30); Calcium 9.2 mg/dL (8.5-10.1); Chloride 99 mmol/L (98-107); Estimated GFR 56.31 (mL/min/1.73m2); Glucose 84 mg/dL (70-100); Lipase 197 U/L (73-393); Potassium 4.2 mmol/L (3.5-5.1); Sodium 137 mmol/L (136-145); TSH (W/Ref FT4) 1.73 uIU/mL (0.358-3.74); Total Protein 7.1 g/dL (6.4-8.2)
== END 2018-03-12 11:35 ==
LOC: LBN 11:15
PROVIDERS: PCP Nurse Practitioner; Visit Provider Family Medicine
DX: I10 Essential (primary) hypertension (principal); N39.0 Urinary tract infection, site not specified; R53.83 Other fatigue
CPT/HCPCS: 80053; 83690; 85027; 82150; 84443

== ENCOUNTER 2018-04-02 01:14 | Outpatient (RCR) | payer MEDICARE, OTHER, SELFPAY ==
[2018-04-02] MEDS: Denosumab 60 MG/ML SYR SC (10:20)
== END 2018-04-26 23:59 | disposition home or self-care (01) ==
LOC: INF 01:14
PROVIDERS: PCP Nurse Practitioner; Visit Provider Family Medicine
DX: M81.0 Age-related osteoporosis without current pathological fracture (principal)
CPT/HCPCS: 96372; J0897

== ENCOUNTER 2018-04-16 11:36 | Outpatient (REF) | payer MEDICARE, OTHER, SELFPAY ==
[2018-04-16 13:54] LABS: TSH (W/Ref FT4) 2.22 uIU/mL (0.358-3.74); Vitamin B12 1880 pg/mL (193-986)
[2018-04-16 14:05] LABS: Folate > 20.0 ng/mL (8.6-20.0)
[2018-04-16 15:16] LABS: Hemoglobin A1C 5.1 % (4.5-6.2)
== END 2018-04-16 11:56 ==
LOC: LBN 11:36
PROVIDERS: PCP Nurse Practitioner; Visit Provider Family Medicine
DX: M06.9 Rheumatoid arthritis, unspecified (principal); R53.83 Other fatigue; R63.4 Abnormal weight loss; Z79.899 Other long term (current) drug therapy
CPT/HCPCS: 82607; 82746; 83036; 84443

== ENCOUNTER 2018-07-30 10:22 | Inpatient (IN) | payer MEDICARE, OTHER, SELFPAY ==
[2018-07-30] VITALS (51 sets, daily range): BP systolic 68–119; BP diastolic 37–67; PULSE 75–99; RESP 16–34; TEMP 36.4–37; O2SAT 94–100
[2018-07-30] MEDS: Normal Saline 1,000 ML 1000 ML IV (10:20)
--- NOTE | 2018-07-30 10:23 | W.ED.GENAD ---
Discharge Plan Disposition Patient Disposition: [facility] INPATIENT Condition: Serious Discharge Details Chief Complaint: GenMedical Clinical Impression: UTI (lower urinary tract infection), Sepsis, KORIN (acute kidney injury), Adrenal insufficiency Primary Care Provider: Sheeba Morelos ED Provider: Phong Riggins [place] Meds and New Rx's Prescriptions: No Action Symbicort 160-4.5 mcg/actuation HFA aerosol inhaler 1 puff Inhalation BID Qty: 3 RF: 3 cyanocobalamin (vitamin B-12) 1,000 mcg/mL solution 1,000 mcg IJ monthly Qty: 3 RF: 3 pantoprazole 40 mg tablet,delayed release (DR/EC) 40 mg PO DAILY Qty: 90 RF: 3 fludrocortisone 0.1 MG tablet 0.15 mg PO DAILY Qty: 90 RF: 3 folic acid 1 MG tablet 1 mg PO DAILY RF: 0 montelukast 10 MG tablet 10 mg PO DAILY Qty: 90 RF: 3 Prolia 60 MG/1 ML syringe 60 mg SQ q6 months RF: 0 cholecalciferol (vitamin D3) 2,000 UNIT tablet 5,000 unit PO DAILY RF: 0 BD Regular Bevel [place] 1 EACH needle 1 ea Miscellaneous monthly Qty: 12 RF: 0 hydrocortisone [Cortef] 10 mg tablet 10 mg PO .COMPLEX RF: 0 citalopram 20 mg tablet 20 mg PO DAILY Qty: 90 RF: 3 epinephrine 0.3 MG/SYR auto-injector 0.3 mg Sub-Q PRN PRNRF: 0 Vimpat 100 mg Tablet 100 mg PO BID Qty: 0 RF: 0 ondansetron HCl 4 mg Tablet 4 mg PO DAILY RF: 0 ondansetron HCl 4 mg Tablet 4 mg PO .Q6H, PRN RF: 0 methotrexate sodium 2.5 mg Tablet 15 mg PO .QWEEK RF: 0 fluticasone propionate 50 mcg/actuation spray,suspension 2 spray NS HS RF: 0 Medical Decision Making Patient sent in from the [facility] for evaluation of hypotension and general weakness. He has adrenal insufficiency and did receive stress dose oral steroid this morning. He has had decreased input and increased output over the last couple of days. Suspect he has a combination of dehydration and adrenal crisis accounting for his symptoms. He received a 500 bolus of saline in route. We will give a total of 2 L here. We will give IV Solu-Cortef. Check laboratory studies, chest x-ray, urine. Complains of abdominal discomfort but his abdomen is benign. 13:00 -patient's blood pressure has not really responded that well to fluids and Solu-Cortef. I did speak with Dr. Best as well as with the patient. He remains DNR/DNI. No ICU intervention. Laboratory studies significant for acute kidney injury, elevated white count, hypomagnesemia. Lactic acid is a little elevated. Chest x-ray is unremarkable. Urine is infected. Previously had resistant enterococcus. Will give Vanco and Cipro IV. Discussed with hospitalist. Patient will be admitted to [facility] for IV fluids, IV antibiotics, IV steroids. We will see how he does over the next day or so. No ICU intervention or pressors or heroic measures per patient and per COLST form. Medical Records Medical records reviewed: Yes I reviewed the patient's medical records. Lab Data Lab results reviewed: Yes I reviewed the patient's lab results. ECG Data Attestation: I personally reviewed and interpreted this ECG (s) as follows: Prior ECG tracings: available for review Interpretation: Normal sinus rhythm at 96. Normal axis and intervals. Incomplete right bundle branch block and nonspecific ST wave changes which are unchanged from previous EKGs. HPI General Mode of arrival: EMS. Date/Time Provider Initiated Documentation: 07/30/18 10:29. Limitations to Documentation: no limitations. Information obtained by: patient, EMS and RN notes reviewed. HPI Narrative: Patient presents from the [facility] for evaluation of generalized weakness and hypotension. Patient has felt unwell for a couple of days now. He has been generally weak. He has not really been eating much but has been trying to drink water. He has some nausea and dry heaves and some abdominal discomfort. He has liquid output in his ostomy bag. There is no report of fever. He has no chest pain or shortness of breath. He was seen this morning at the [facility]. He remains DNR/DNI. He did receive 25 mg orally of stress steroids. Related Data Home Medications Medication Instructions Recorded Confirmed epinephrine 0.3 mg SUB-Q PRN PRN 10/07/14 07/30/18 fludrocortisone 0.15 mg PO DAILY #90 tab-cap 03/17/16 07/30/18 folic acid 1 mg PO DAILY 10/24/16 07/30/18 montelukast 10 mg PO DAILY #90 tab-cap 01/03/17 07/30/18 denosumab [Prolia] 60 mg SQ q6 months 03/15/17 07/30/18 cholecalciferol (vitamin D3) 5,000 unit PO DAILY 04/19/17 07/30/18 needle (disp) 21 G [[place]] #12 ea 11/16/17 03/08/18 budesonide-formoterol HFA 160 1 puff INHALATION BID #3 canister 02/07/18 07/30/18 mcg-4.5 mcg/actuation aerosol inhaler cyanocobalamin (vit B-12) 1,000 1,000 mcg IJ monthly #3 vial 02/07/18 07/30/18 mcg/mL injection solution pantoprazole 40 mg tablet,delayed 40 mg PO DAILY #90 tab-cap 02/07/18 07/30/18 release hydrocortisone 10 mg tablet 10 mg PO .COMPLEX 02/08/18 07/30/18 citalopram 20 mg tablet 20 mg PO DAILY #90 tab 02/21/18 07/30/18 lacosamide [Vimpat] 100 mg PO BID #0 tab 03/09/18 07/30/18 fluticasone propionate 2 spray NS HS 07/30/18 07/30/18 methotrexate sodium 15 mg PO .QWEEK 07/30/18 07/30/18 ondansetron HCl 4 mg PO .Q6H, PRN 07/30/18 07/30/18 ondansetron HCl 4 mg PO DAILY 07/30/18 07/30/18 Previous Rx's Medication Instructions Recorded montelukast 10 mg PO DAILY #90 tab-cap 01/03/17 needle (disp) 21 G [[place]] #12 ea 11/16/17 budesonide-formoterol HFA 160 1 puff INHALATION BID #3 canister 02/07/18 mcg-4.5 mcg/actuation aerosol inhaler cyanocobalamin (vit B-12) 1,000 1,000 mcg IJ monthly #3 vial 02/07/18 mcg/mL injection solution pantoprazole 40 mg tablet,delayed 40 mg PO DAILY #90 tab-cap 02/07/18 release citalopram 20 mg tablet 20 mg PO DAILY #90 tab 02/21/18 lacosamide [Vimpat] 100 mg PO BID #0 tab 03/09/18 Allergies Allergy/AdvReac Type Severity Reaction Status Date / Time latex Allergy Intermediate rash, Verified 03/11/18 11:47 itching plasma protein fraction Allergy Intermediate Hives Verified 03/11/18 11:47 acebutolol Allergy Unknown Verified 03/11/18 11:47 promethazine Allergy Unknown Verified 03/11/18 11:47 pseudoephedrine Allergy Unknown Verified 03/11/18 11:47 terazosin Allergy Unknown Verified 03/11/18 11:47 tramadol HCl [From Ultracet] Allergy Unknown Verified 03/11/18 11:47 ceftriaxone Allergy Unverified 07/30/18 11:22 chlorpheniramine Allergy Unverified 07/30/18 11:21 venom-honey bee Allergy Verified 03/11/18 11:47 [bee venom (honey bee)] ferrous sulfate AdvReac Severe Stomach Verified 03/11/18 11:47 aches tamsulosin HCl [From Flomax] AdvReac Severe Dizziness/L Verified 03/11/18 11:47 ightheade Antihistamines - Alkylamine AdvReac Unknown affected Verified 03/11/18 11:47 prostate cefuroxime AdvReac Unknown daark urine Verified 03/11/18 11:47 plasma human Allergy Intermediate Hives Uncoded 03/11/18 11:47 General SANTOSH: 3 Review of Systems Review of Systems 01/07 Review of Systems completed and is negative except as stated above in HPI (Systems reviewed: Const, Eyes, ENT, Resp, CV, GI, , MSK, Skin, Neuro) [facility] Medical History Seizure disorder (Chronic) Subdural hematoma (Resolved) Rheumatoid arthritis (Chronic 11/06/15) DEVORAH on CPAP (Chronic 11/06/15) Depression (Chronic 08/14/17) CKD (chronic kidney disease) stage 3, GFR 30-59 ml/min (Chronic 11/06/15) [place]'s disease (Chronic) H/O ulcerative colitis (Chronic) Asthma (Chronic) COPD (chronic obstructive pulmonary disease) (Chronic) Chronic deep vein thrombosis (DVT) (Chronic) Hypertension (Chronic) 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) Abdominal wall fistula (Resolved) Surgical History Extraction of cataract (Chronic 07/28/16) Transurethral prostatectomy (Chronic 11/24/14) cystoureteroscopy,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) hernia repair (Chronic 04/08/99) repair retinal breaks (Chronic 12/24/03) transsphenoidal hypophysectomy (Chronic 11/15/93) Fracture, Closed Treatment (Resolved 02/15/16) Cholecystectomy (Inactive 02/15/16) Total colectomy (Inactive 09/25/97) Social History Smoking/Tobacco Use Status: Former Tobacco Use Alcohol Intake: never Drug use: Never Substance use type: does not use Do you feel safe at home: Yes Do you feel safe in your relationship?: Yes Exam Narrative Exam Narrative: Vitals: Afebrile. Hypotensive. Normal pulse ox. Const: WDWN male in NAD, looks washed out. HEENT: NC/AT. Normal facial exam. Eyes: Normal conjunctiva and sclera. Neck: Supple. Trachea midline. Lungs: Normal respiratory effort. Lungs are clear. Cor: RRR with ? faint murmur at apex. Radial pulsesare weak. GI: Soft. NT/ND. No guarding or rebound. Ostomy in LLQ with green liquid present in bag. Neuro: Awake and responsive, generally weak throughout. CN grossly in tact. Ext: No C/C/E. Cool extremities with delayed cap refill.
--- NOTE | 2018-07-30 10:29 | ED.GENADUL_ITS ---
Discharge Plan Disposition Patient Disposition: [facility] INPATIENT Condition: Serious Discharge Details Chief Complaint: GenMedical Clinical Impression: UTI (lower urinary tract infection), Sepsis, KORIN (acute kidney injury), Adrenal insufficiency Primary Care Provider: Sheeba Morelos ED Provider: Phong Riggins [place] Meds and New Rx's Prescriptions: No Action Symbicort 160-4.5 mcg/actuation HFA aerosol inhaler 1 puff Inhalation BID Qty: 3 RF: 3 cyanocobalamin (vitamin B-12) 1,000 mcg/mL solution 1,000 mcg IJ monthly Qty: 3 RF: 3 pantoprazole 40 mg tablet,delayed release (DR/EC) 40 mg PO DAILY Qty: 90 RF: 3 fludrocortisone 0.1 MG tablet 0.15 mg PO DAILY Qty: 90 RF: 3 folic acid 1 MG tablet 1 mg PO DAILY RF: 0 montelukast 10 MG tablet 10 mg PO DAILY Qty: 90 RF: 3 Prolia 60 MG/1 ML syringe 60 mg SQ q6 months RF: 0 cholecalciferol (vitamin D3) 2,000 UNIT tablet 5,000 unit PO DAILY RF: 0 BD Regular Bevel [place] 1 EACH needle 1 ea Miscellaneous monthly Qty: 12 RF: 0 hydrocortisone [Cortef] 10 mg tablet 10 mg PO .COMPLEX RF: 0 citalopram 20 mg tablet 20 mg PO DAILY Qty: 90 RF: 3 epinephrine 0.3 MG/SYR auto-injector 0.3 mg Sub-Q PRN PRNRF: 0 Vimpat 100 mg Tablet 100 mg PO BID Qty: 0 RF: 0 ondansetron HCl 4 mg Tablet 4 mg PO DAILY RF: 0 ondansetron HCl 4 mg Tablet 4 mg PO .Q6H, PRN RF: 0 methotrexate sodium 2.5 mg Tablet 15 mg PO .QWEEK RF: 0 fluticasone propionate 50 mcg/actuation spray,suspension 2 spray NS HS RF: 0 Medical Decision Making Patient sent in from the [facility] for evaluation of hypotension and general weakness. He has adrenal insufficiency and did receive stress dose oral steroid this morning. He has had decreased input and increased output over the last couple of days. Suspect he has a combination of dehydration and adrenal crisis accounting for his symptoms. He received a 500 bolus of saline in route. We will give a total of 2 L here. We will give IV Solu-Cortef. Check laboratory studies, chest x-ray, urine. Complains of abdominal discomfort but his abdomen is benign. 13:00 -patient's blood pressure has not really responded that well to fluids and Solu-Cortef. I did speak with Dr. Best as well as with the patient. He remains DNR/DNI. No ICU intervention. Laboratory studies significant for acute kidney injury, elevated white count, hypomagnesemia. Lactic acid is a little elevated. Chest x-ray is unremarkable. Urine is infected. Previously had resistant enterococcus. Will give Vanco and Cipro IV. Discussed with hospitalist. Patient will be admitted to [facility] for IV fluids, IV antibiotics, IV steroids. We will see how he does over the next day or so. No ICU intervention or pressors or heroic measures per patient and per COLST form. Medical Records Medical records reviewed: Yes I reviewed the patient's medical records. Lab Data Lab results reviewed: Yes I reviewed the patient's lab results. ECG Data Attestation: I personally reviewed and interpreted this ECG (s) as follows: Prior ECG tracings: available for review Interpretation: Normal sinus rhythm at 96. Normal axis and intervals. Incomplete right bundle branch block and nonspecific ST wave changes which are unchanged from previous EKGs. HPI General Mode of arrival: EMS . Date/Time Provider Initiated Documentation: 07/30/18 10:29 . Limitations to Documentation: no limitations . Information obtained by: patient, EMS and RN notes reviewed . HPI Narrative: Patient presents from the [facility] for evaluation of generalized weakness and hypotension. Patient has felt unwell for a couple of days now. He has been generally weak. He has not really been eating much but has been trying to drink water. He has some nausea and dry heaves and some abdominal discomfort. He has liquid output in his ostomy bag. There is no report of fever. He has no chest pain or shortness of breath. He was seen this morning at the [facility]. He remains DNR/DNI. He did receive 25 mg orally of stress steroids. Related Data Home Medications Medication Instructions Recorded Confirmed epinephrine 0.3 mg SUB-Q PRN PRN 10/07/14 07/30/18 fludrocortisone 0.15 mg PO DAILY #90 tab-cap 03/17/16 07/30/18 folic acid 1 mg PO DAILY 10/24/16 07/30/18 montelukast 10 mg PO DAILY #90 tab-cap 01/03/17 07/30/18 denosumab [Prolia] 60 mg SQ q6 months 03/15/17 07/30/18 cholecalciferol (vitamin D3) 5,000 unit PO DAILY 04/19/17 07/30/18 needle (disp) 21 G [Allen] #12 ea 11/16/17 03/08/18 budesonide-formoterol HFA 160 1 puff INHALATION BID #3 canister 02/07/18 07/30/18 mcg-4.5 mcg/actuation aerosol inhaler cyanocobalamin (vit B-12) 1,000 1,000 mcg IJ monthly #3 vial 02/07/18 07/30/18 mcg/mL injection solution pantoprazole 40 mg tablet,delayed 40 mg PO DAILY #90 tab-cap 02/07/18 07/30/18 release hydrocortisone 10 mg tablet 10 mg PO .COMPLEX 02/08/18 07/30/18 citalopram 20 mg tablet 20 mg PO DAILY #90 tab 02/21/18 07/30/18 lacosamide [Vimpat] 100 mg PO BID #0 tab 03/09/18 07/30/18 fluticasone propionate 2 spray NS HS 07/30/18 07/30/18 methotrexate sodium 15 mg PO .QWEEK 07/30/18 07/30/18 ondansetron HCl 4 mg PO .Q6H, PRN 07/30/18 07/30/18 ondansetron HCl 4 mg PO DAILY 07/30/18 07/30/18 Previous Rx's Medication Instructions Recorded montelukast 10 mg PO DAILY #90 tab-cap 01/03/17 needle (disp) 21 G [Allen] #12 ea 11/16/17 budesonide-formoterol HFA 160 1 puff INHALATION BID #3 canister 02/07/18 mcg-4.5 mcg/actuation aerosol inhaler cyanocobalamin (vit B-12) 1,000 1,000 mcg IJ monthly #3 vial 02/07/18 mcg/mL injection solution pantoprazole 40 mg tablet,delayed 40 mg PO DAILY #90 tab-cap 02/07/18 release citalopram 20 mg tablet 20 mg PO DAILY #90 tab 02/21/18 lacosamide [Vimpat] 100 mg PO BID #0 tab 03/09/18 Allergies Allergy/AdvReac Type Severity Reaction Status Date / Time latex Allergy Intermediate rash, Verified 03/11/18 11:47 itching plasma protein fraction Allergy Intermediate Hives Verified 03/11/18 11:47 acebutolol Allergy Unknown Verified 03/11/18 11:47 promethazine Allergy Unknown Verified 03/11/18 11:47 pseudoephedrine Allergy Unknown Verified 03/11/18 11:47 terazosin Allergy Unknown Verified 03/11/18 11:47 tramadol HCl [From Ultracet] Allergy Unknown Verified 03/11/18 11:47 ceftriaxone Allergy Unverified 07/30/18 11:22 chlorpheniramine Allergy Unverified 07/30/18 11:21 venom-honey bee Allergy Verified 03/11/18 11:47 [bee venom (honey bee)] ferrous sulfate AdvReac Severe Stomach Verified 03/11/18 11:47 aches tamsulosin HCl [From Flomax] AdvReac Severe Dizziness/L Verified 03/11/18 11:47 ightheade Antihistamines - Alkylamine AdvReac Unknown affected Verified 03/11/18 11:47 prostate cefuroxime AdvReac Unknown daark urine Verified 03/11/18 11:47 plasma human Allergy Intermediate Hives Uncoded 03/11/18 11:47 General SANTOSH: 3 Review of Systems Review of Systems 01/07 Review of Systems completed and is negative except as stated above in HPI (Systems reviewed: Const, Eyes, ENT, Resp, CV, GI, , MSK, Skin, Neuro) [facility] Medical History Seizure disorder (Chronic) Subdural hematoma (Resolved) Rheumatoid arthritis (Chronic 11/06/15) DEVORAH on CPAP (Chronic 11/06/15) Depression (Chronic 08/14/17) CKD (chronic kidney disease) stage 3, GFR 30-59 ml/min (Chronic 11/06/15) [place]'s disease (Chronic) H/O ulcerative colitis (Chronic) Asthma (Chronic) COPD (chronic obstructive pulmonary disease) (Chronic) Chronic deep vein thrombosis (DVT) (Chronic) Hypertension (Chronic) 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) Abdominal wall fistula (Resolved) Surgical History Extraction of cataract (Chronic 07/28/16) Transurethral prostatectomy (Chronic 11/24/14) cystoureteroscopy,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) hernia repair (Chronic 04/08/99) repair retinal breaks (Chronic 12/24/03) transsphenoidal hypophysectomy (Chronic 11/15/93) Fracture, Closed Treatment (Resolved 02/15/16) Cholecystectomy (Inactive 02/15/16) Total colectomy (Inactive 09/25/97) Social History Smoking/Tobacco Use Status: Former Tobacco Use Alcohol Intake: never Drug use: Never Substance use type: does not use Do you feel safe at home: Yes Do you feel safe in your relationship?: Yes Exam Narrative Exam Narrative: Vitals: Afebrile. Hypotensive. Normal pulse ox. Const: WDWN male in NAD, looks washed out. HEENT: NC/AT. Normal facial exam. Eyes: Normal conjunctiva and sclera. Neck: Supple. Trachea midline. Lungs: Normal respiratory effort. Lungs are clear. Cor: RRR with ? faint murmur at apex. Radial pulsesare weak. GI: Soft. NT/ND. No guarding or rebound. Ostomy in LLQ with green liquid present in bag. Neuro: Awake and responsive, generally weak throughout. CN grossly in tact. Ext: No C/C/E. Cool extremities with delayed cap refill.
[2018-07-30] MEDS: Hydrocortisone SOD SUC. 100 MG VIAL IVP (10:49)
[2018-07-30] MEDS: Lactated Ringers 500 ML IV (10:51)
--- NOTE | 2018-07-30 10:58 | DI.RAD_ITS ---
SYMPTOM/DIAGNOSIS: WEAKNESS PORTABLE AP CHEST: The heart is not enlarged. The lungs appear grossly clear and well expanded. CONCLUSION: No evidence of acute disease.
[2018-07-30 11:02] LABS: Absolute Eosinophil Count 0.14 k/cumm (0.0-0.7); HCT 38.7 % (40.0-50.0); HGB 12.5 g/dL (13.5-17.5); Mean Corp. HGB Concentration 32.3 g/dL (32.0-36.0); Mean Corpuscular Hemoglobin 30.9 pg (27.0-33.0); Mean Corpuscular Volume 95.6 fL (80-95); Mean Platelet Volume 12.6 fL (8.0-11.0); Platelet Count 104 x1000/uL (130-400); RBC 4.05 m/cumm (4.50-6.00); RBC Distribution Width 17.3 % (11.8-14.1); White Blood Cell Count 14.13 k/cumm (4.4-10.8)
[2018-07-30 11:12] LABS: Lactate 2.2 mmol/L (0.6-1.4)
[2018-07-30 11:23] LABS: Lipase 180 U/L (73-393); Magnesium 1.5 mg/dL (1.8-2.4)
[2018-07-30 11:29] LABS: ALT 31 U/L (12-78); AST 45 U/L (15-37); Albumin 3.3 g/dL (3.4-5.0); Alkaline Phosphatase 87 U/L (46-116); Anion Gap 12.6 mmol/L (3-11); BUN 43 mg/dL (7-18); CO2 19.4 mmol/L (21.0-32.0); Calcium 8.1 mg/dL (8.5-10.1); Chloride 98 mmol/L (98-107); Estimated GFR 13.01 (mL/min/1.73m2); Glucose 72 mg/dL (70-100); Potassium 4.6 mmol/L (3.5-5.1); Sodium 130 mmol/L (136-145); Total Protein 6.5 g/dL (6.4-8.2); Troponin I 0.02 ng/mL (0.00-0.06)
[2018-07-30 11:31] LABS: CREATININE 4.45 mg/dL (0.70-1.30)
[2018-07-30 11:40] LABS: Absolute Lymphocyte Count 0.99 k/cumm (1.2-3.4); Absolute Neutrophil Count 8.48 k/cumm (1.2-6.7)
[2018-07-30 11:44] LABS: Atypical Lymphocytes % 0
[2018-07-30] MEDS: Lactated Ringers 1,000 ML 150 ML IV ×3 (11:45→20:50)
[2018-07-30] MEDS: MAGNESIUM SULFATE 2 GM/50 ML BAG IVPB (11:45)
[2018-07-30 11:46] LABS: Absolute Monocyte Count 4.24 k/cumm (0.11-0.7); Other Cells 2
[2018-07-30 11:48] LABS: Promyelocytes % 0 %
[2018-07-30 11:49] LABS: Diff Comment Manual Differential
[2018-07-30 11:51] LABS: Anisocytosis 1+; Hypochromasia 2+; Poikilocytes 1+; Polychromasia Present
[2018-07-30 12:22] LABS: Bilirubin Negative (Negative); Blood Moderate (Negative); Clarity Cloudy; Glucose Negative (Negative); Ketones Trace mg/dL (Negative); Leukocyte Esterase Small (Negative); Nitrite Negative (Negative); Specific Gravity 1.025 (1.005-1.025); Urobilinogen 0.2 EU/dL (Up TO 0.2); pH 5.5 (5-8)
[2018-07-30] MEDS: Lidocaine 2% Jelly 11 ML SYR ×2 (12:22→13:02)
[2018-07-30 12:39] LABS: C & S Indicated? Yes
--- NOTE | 2018-07-30 12:50 | PDOC.ERCMPRO ---
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 Consult has been faxed to Palliative Care Office. This CM notified JOSE ANTONIO Tesfaye as patient is being admitted. Mera will set up Palliative Consult.
[2018-07-30] MEDS: CIPROFLOXACIN 400 MG/200 ML BAG 200 MG IVPB (13:02)
[2018-07-30] MEDS: VANCOMYCIN 1,000 MG in Normal Saline 250 ML 166.6666 MG IVPB (13:17)
[2018-07-30] MEDS: Lactated Ringers 1,000 ML 1000 ML IV (13:45)
--- NOTE | 2018-07-30 14:22 | HPE_ITS ---
Date of service: 07/30/18 Time of Service: 13:50 Assessment and Plan (1) Septic shock: Current visit: Yes Status: Acute Possibly multifactorial, but at a minimum due to UTI present on admission with history of vancomycin sensitive E. faecium. Other source could be GI/diarrhea. C. Diff is negative. Will continue vancomycin, cipro initiated in the ED. Continue aggressive IVF and stress dose steroids. (2) UTI (urinary tract infection): Current visit: Yes Status: Acute In setting of chronic urinary retention with evidence thereof on this admission. The patient refuses abdominal/pelvic imaging - I am not sure if he has hydronephrosis or nephrolithiasis. For now, the patient has a blackmon. Continue empiric vancomycin, cipro, and await urine and blood cultures. (3) Acute adrenal insufficiency: Current visit: Yes Status: Acute Continue stress dose steroids. (4) Acute kidney injury superimposed on chronic kidney disease: Current visit: Yes Status: Acute Continue blackmon catheter and aggressive hydration. This is expected to i mprove. Patient is refusing abdominal imaging. (5) Dehydration: Current visit: Yes Status: Acute Due to Diarrhea and UTI. Continue IVF, work on slowing down diarrhea - start questran. (6) Urinary retention: Current visit: Yes Status: Acute s/p prostatectomy; still requiring a blackmon catheter. Consider starting flomax if BP permits and no orthostasis (I did note the patient is on florinef as well). (7) Diarrhea: Current visit: Yes Status: Acute Etiology unclear. Will check C. Diff PCR. For now, start questran (should be safe if it is C. Diff), obtain stool studies. On empiric cipro. (8) Seizure disorder: Current visit: No Status: Chronic Continue vimpat (9) Subdural hematoma: Current visit: No Status: Resolved Per patient, a long time ago. I feel that, given his reported history of several DVT's, heparin SC should be safe. Will monitor for any signs of recurrence. (10) Weakness: Current visit: No Status: Acute Likely due to sepsis. PT/OT consults. (11) Rheumatoid arthritis: Current visit: No Status: Chronic Hold methotrexate (12) DEVORAH on CPAP: Current visit: No Status: Chronic Provide CPAP at night (13) Benign prostatic hypertrophy: Current visit: No Status: Chronic Read re urinary retention above (14) Discharge planning issues: Current visit: No Status: Acute DNR/DNI. The patient is not firmly against ICU, per my conversation with him, but does not want to pursue further imaging. Patient is known to palliative care - will consult. THe patient's prognosis is cautiously optimistic. 60 minutes were spent providing critical care and completing documentation for this patient. (15) DVT prophylaxis: Current visit: Yes Status: Acute SC heparin History of Present Illness Chief Complaint: weakness Narrative: Mr Wang is a 77 year old male with PMHx of chronic adrenal insufficiency, prior UTI's in setting of urinary retention, on chronic hydrocortisone, UC s/p colectomy/ileostomy, RA on methotrexate therapy, h/o LLE DVT as well as subdural hematoma and seizure disorder, current ly a patient of the [facility], who was brought to [facility] ED today with complaints of weakness, diarrhea, suprapubic pain. He was hypotensive on arrival with BP's as low as 68/39. He was found to have purulent urine on straight catheterization with 350 cc out and relief of his suprapubic pain. He indeed had green liquid ostomy output. He was found to be in KORIN on CKD stage 3 with Cr of 4.45 up from his normal of 1.1-1.3. He was initiated on vancomycin and cipro for his UTI (history of vancomycin sensitive E. Faecium in the urine), stress dose hydrocortisone, aggressive IVF with improvement of his blood pressures. The patient states he started to feel weak 2-3 days ago. This morning, he was so wea k and dizzy, he couldn't get up (normally uses a walker). The diarrhea started at the same time. Normally, his ostomy output is formed, but it has been liquid. He admits to having poor appetite. Other than the suprapubic pain which was relieved with straight catheterization, he had not had any abdominal pain. He is A&Ox3, able to discuss his goals of care. He did confirm he wants to be DNR/DNI. He is open to the idea of going to the ICU if he needs it, but he just doesn't think he needs it right now. He refused to get more extensive imaging than the CXR done by the ED. Review of Systems Review of Systems 12 systems reviewed. Pertinent positives and negatives are as per HPI. Additionally, the patient endorses an occasional nonproductive cough and cold symptoms - states he was treated for a cold a couple of weeks ago. [facility] Medical History Seizure disorder (Chronic) Subdural hematoma (Resolved) Rheumatoid arthritis (Chronic 11/06/15) DEVORAH on CPAP (Chronic 11/06/15) Depression (Chronic 08/14/17) CKD (chronic kidney disease) stage 3, GFR 30-59 ml/min (Chronic 11/06/15) [place]'s disease (Chronic) H/O ulcerative colitis (Chronic) Asthma (Chronic) COPD (chronic obstructive pulmonary disease) (Chronic) Chronic deep vein thrombosis (DVT) (Chronic) Hypertension (Chronic) 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) Abdominal wall fistula (Resolved) Surgical History Extraction of cataract (Chronic 07/28/16) Transurethral prostatectomy (Chronic 11/24/14) cystoureteroscopy,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) hernia repair (Chronic 04/08/99) repair retinal breaks (Chronic 12/24/03) transsphenoidal hypophysectomy (Chronic 11/15/93) Fracture, Closed Treatment (Resolved 02/15/16) Cholecystectomy (Inactive 02/15/16) Total colectomy (Inactive 09/25/97) Social History Smoking/Tobacco Use Status: Former Tobacco Use Alcohol Intake: never Drug use: Never Substance use type: does not use Do you feel safe at home: Yes Do you feel safe in your relationship?: Yes Meds Home Medications Medication Instructions Recorded Confirmed Type epinephrine 0.3 mg SUB-Q PRN PRN 10/07/14 07/30/18 History fludrocortisone 0.15 mg PO DAILY #90 tab-cap 03/17/16 07/30/18 History folic acid 1 mg PO DAILY 10/24/16 07/30/18 History montelukast 10 mg PO DAILY #90 tab-cap 01/03/17 07/30/18 Rx denosumab [Prolia] 60 mg SQ q6 months 03/15/17 07/30/18 History needle (disp) 21 G [Leblanc] #12 ea 11/16/17 03/08/18 Rx budesonide-formoterol HFA 160 1 puff INHALATION BID #3 canister 02/07/18 07/30/18 Rx mcg-4.5 mcg/actuation aerosol inhaler pantoprazole 40 mg tablet,delayed 40 mg PO DAILY #90 tab-cap 02/07/18 07/30/18 Rx release citalopram 20 mg tablet 20 mg PO DAILY #90 tab 02/21/18 07/30/18 Rx lacosamide [Vimpat] 100 mg PO BID #0 tab 03/09/18 07/30/18 Rx cholecalciferol (vitamin D3) 5,000 unit PO DAILY 07/30/18 07/30/18 History cyanocobalamin (vitamin B-12) 1,000 mcg IM monthly 07/30/18 07/30/18 History fluticasone propionate 2 spray NS HS 07/30/18 07/30/18 History hydrocortisone 5 mg PO BID@0800,1700 07/30/18 07/30/18 History hydrocortisone 20 mg PO DAILY 07/30/18 07/30/18 History loperamide [Imodium A-D] 2 mg PO TID 07/30/18 07/30/18 History methotrexate sodium 15 mg PO .QWEEK 07/30/18 07/30/18 History ondansetron HCl 4 mg PO .Q6H, PRN 07/30/18 07/30/18 History ondansetron HCl 4 mg PO DAILY 07/30/18 07/30/18 History Allergies Allergy/AdvReac Type Severity Reaction Status Date / Time latex Allergy Intermediate rash, Verified 03/11/18 11:47 itching plasma protein fraction Allergy Intermediate Hives Verified 03/11/18 11:47 acebutolol Allergy Unknown Verified 03/11/18 11:47 promethazine Allergy Unknown Verified 03/11/18 11:47 pseudoephedrine Allergy Unknown Verified 03/11/18 11:47 terazosin Allergy Unknown Verified 03/11/18 11:47 tramadol HCl [From Ultracet] Allergy Unknown Verified 03/11/18 11:47 ceftriaxone Allergy Unverified 07/30/18 11:22 chlorpheniramine Allergy Unverified 07/30/18 11:21 venom-honey bee Allergy Verified 03/11/18 11:47 [bee venom (honey bee)] ferrous sulfate AdvReac Severe Stomach Verified 03/11/18 11:47 aches tamsulosin HCl [From Flomax] AdvReac Severe Dizziness/L Verified 03/11/18 11:47 ightheade Antihistamines - Alkylamine AdvReac Unknown affected Verified 03/11/18 11:47 prostate cefuroxime AdvReac Unknown daark urine Verified 03/11/18 11:47 plasma human Allergy Intermediate Hives Uncoded 03/11/18 11:47 Exam Narrative Exam Narrative: General: Very pleasant elderly male, appears ill/dehydrated, laying comfortably in bed, A&OX3, able to provide his history Neurological: A&Ox3 (he initially thinks it's 1919, but quickly corrects himself), no focal deficits Psychiatric: appears to have somewhat of a flat affect, but otherwise appropriate speech pattern and content Skin: Visible skin intact HEENT: Atraumatic, EOMI, dry MM, no submandibular or cervical lymphadenopathy, no goiter or JVD Cardiovascular: RRR, quiet ANN Lungs: Diminished breath sounds B Gastrointestinal: abdomen with a well-healed midline abdominal incision; LLQ colostomy with liquid greenish output; no TTP Genitourinary: has a blackmon Extremities: no e/c/c BLE's, warm, +1 pedal pulses B Results Imaging Additional studies: CXR: No evidence of acute disease. Labs : 07/30/18 10:31 07/30/18 10:31 Laboratory Results - last 24 hr 07/30/18 07/30/18 07/30/18 10:31 10:31 10:31 WBC RBC Hgb Hct MCV MCH MCHC RDW Plt Count MPV Immature Gran % Neutrophils % Band Neutrophils % Lymphocytes % Atypical Lymphs % Monocytes % Eosinophils % Basophils % Metamyelocytes % Myelocytes % Promyelocytes % Absolute Neutrophils Absolute Lymphocytes Absolute Monocytes Absolute Eosinophils Absolute Basophils Differential Comment Other Cell Type RBC Morphology Polychromasia Hypochromasia Poikilocytosis Anisocytosis Sodium 130 L Potassium 4.6 Chloride 98 Carbon Dioxide 19.4 L Anion Gap 12.6 H BUN 43 H Creatinine 4.45 H* Estimated GFR/1.73 m2 13.01 Glucose 72 Lactate 2.2 H* Calcium 8.1 L Magnesium 1.5 L Total Bilirubin 2.0 H AST 45 H ALT 31 Alkaline Phosphatase 87 Troponin I 0.02 Total Protein 6.5 Albumin 3.3 L Lipase 180 Urine Color Urine Clarity Urine pH Ur Specific [place] Urine Protein Urine Ketones Urine Blood Urine Nitrite Urine Bilirubin Urine Urobilinogen Ur Leukocyte Esterase Urine RBC Urine WBC Ur Epithelial Cells Urine Crystals Urine Bacteria Urine Mucus Ur Culture Indicated? Urine Glucose 07/30/18 07/30/18 10:31 12:10 WBC 14.13 H RBC 4.05 L Hgb 12.5 L Hct 38.7 L MCV 95.6 H MCH 30.9 MCHC 32.3 RDW 17.3 H Plt Count 104 L MPV 12.6 H Immature Gran % 0.0 Neutrophils % 60.0 Band Neutrophils % 0.0 Lymphocytes % 7.0 Atypical Lymphs % 0 Monocytes % 30.0 Eosinophils % 1.0 Basophils % 0.0 Metamyelocytes % 0.0 Myelocytes % 0.0 Promyelocytes % 0 Absolute Neutrophils 8.48 H Absolute Lymphocytes 0.99 L Absolute Monocytes 4.24 H Absolute Eosinophils 0.14 Absolute Basophils 0.00 Differential Comment Manual differential Other Cell Type 2 RBC Morphology See below Polychromasia Present Hypochromasia 2+ Poikilocytosis 1+ Anisocytosis 1+ Sodium Potassium Chloride Carbon Dioxide Anion Gap BUN Creatinine Estimated GFR/1.73 m2 Glucose Lactate Calcium Magnesium Total Bilirubin AST ALT Alkaline Phosphatase Troponin I Total Protein Albumin Lipase Urine Color Dark yellow Urine Clarity Cloudy Urine pH 5.5 Ur Specific [place] 1.025 Urine Protein >=300 H Urine Ketones Trace H Urine Blood Moderate H Urine Nitrite Negative Urine Bilirubin Negative Urine Urobilinogen 0.2 Ur Leukocyte Esterase Small H Urine RBC Not Applicable Urine WBC Ur Epithelial Cells Not Applicable Urine Crystals Not Applicable Urine Bacteria Not Applicable Urine Mucus Not Applicable Ur Culture Indicated? Yes Urine Glucose Negative Last Vital Signs Temp 36.5 C 07/30/18 14:00 Pulse 91 H 07/30/18 14:00 Resp 16 07/30/18 14:00 BP 100/61 07/30/18 14:00 Pulse Ox 98 07/30/18 14:00
[2018-07-30] MEDS: Heparin 5,000 UNITS/ML VIAL 5000 UNITS SC ×2 (14:43→21:27)
[2018-07-30] MEDS: Hydrocortisone SOD SUC. 100 MG VIAL 50 MG IVP ×2 (15:58→21:25)
[2018-07-30] MEDS: Normal Saline Flush 10 ML SYR IVP (15:59)
[2018-07-30] MEDS: Cholestyramine/Aspartame PKT 1 EACH PO (18:19)
[2018-07-30] MEDS: Budesonide/Formoterol 160/4.5 6 GM 60 PUFF INH IH (19:23)
[2018-07-30] MEDS: Lacosamide 100 MG TAB PO (19:25)
[2018-07-30] MEDS: Fluticasone NASAL SPRAY 16 GM BTL NS (21:24)
[2018-07-31] MEDS: Lactated Ringers 1,000 ML 150 ML IV ×3 (03:31→19:03)
[2018-07-31 04:09] VITALS: BP 103/58; PULSE 73; RESP 21; TEMP 35.8; O2SAT 97
[2018-07-31] MEDS: Hydrocortisone SOD SUC. 100 MG VIAL 50 MG IVP ×4 (04:13→22:01)
[2018-07-31] MEDS: Heparin 5,000 UNITS/ML VIAL 5000 UNITS SC (06:14)
--- NOTE | 2018-07-31 07:05 | W.PALLCONSUL ---
Date of service: 07/31/18 Time of Service: 07:05 History of Present Illness Narrative: Liang is a 77-year-old patient well-known to me. He lives at the [facility] due to his multiple chronic comorbidities. He has recently lost his when she fell down the steps and had a head bleed. He lives in a room with his cat whom he lives. He has no children. Yesterday while doing rounds at the [facility] nurses aide asked me to see Liang. At that time he was weak and was starting to have increased output in his colostomy. Due to his [place]'s disease I gave him additional Hydrocort Encouraged fluids. Unfortunately over the next couple of hours his condition worsened and he was transferred to the emergency room. I did speak with the emergency room doctor who stated that he was dehydrated and possibly infected. Stool cultures were obtained but are not yet back. His creatinine was 4 times normal He was admitted for IV hydration, IV antibiotics, and rest Today he says he is slightly better. He states that he had a restless night. He oftentimes does not sleep well at night. He is not having any pain. He is having high output in his colostomy. He does not feel lightheaded today. Consults Consult date: 07/31/18 Requesting physician: Karen Mendoza Assessment and Plan (1) Acute adrenal insufficiency: Current visit: Yes Status: Acute (2) Acute kidney injury superimposed on chronic kidney disease: Current visit: Yes Status: Acute (3) Diarrhea: Current visit: Yes Status: Acute (4) UTI (urinary tract infection): Current visit: Yes Status: Acute (5) Dehydration: Current visit: Yes Status: Acute He is receiving IV fluids. This will probably need to continue for another 1 to 2 days. His creatinine is improving which I am glad to see. I did ask him specifically about plans if he has worsening renal function. He states that in the past he had spent 3 months on dialysis with his kidneys shut down after an operation. He is not interested in returning to dialysis. He would rather stay comfortable and live his life as long as he has left, but does not want to go back on dialysis. He does not want further follow-up of his renal function. He is very at peace with being a DNR/DNI. He does not want this changed. Physically he is improving. He has a twinkle in his diet again. I would recommend that they start physical therapy as soon as possible He is on methotrexate weekly. I think he did sit on . I would recommend holding it this week. He loves his cat. His cat lives with him at the [facility]. He has no children no real family. Asking him about his cat helps him to smile and feel good about his life. I will continue to follow him Diarrhea?stool cultures have not yet come back. This document was created by [employer] and may contain grammatical and translation errors. I have spent more than 50% of time in counseling with this patient. Review of Systems Constitutional Reports chills, Reports difficulty sleeping, Reports fatigue, Reports malaise and Reports weakness Eyes Reports system reviewed and no additional complaints, except as docu ENT Reports system reviewed and no additional complaints, except as docu Cardiovascular Reports rapid heart rate, Reports lightheadedness and Reports dyspnea Respiratory Reports cough and Reports dyspnea Gastrointestinal Reports abdominal pain, Reports bloating, Reports change in bowel habits, Reports change in stool character, Reports cramping, Reports diarrhea and Denies vomiting Genitourinary Reports system reviewed and no additional complaints, except as docu Comments: cath in place Musculoskeletal Reports system reviewed and no additional complaints, except as docu Neurologic Reports weakness Psychiatric Comments: He misses his cat Endocrine Reports fatigue [facility] Medical History Seizure disorder (Chronic) Subdural hematoma (Resolved) Rheumatoid arthritis (Chronic 11/06/15) DEVORAH on CPAP (Chronic 11/06/15) Depression (Chronic 08/14/17) CKD (chronic kidney disease) stage 3, GFR 30-59 ml/min (Chronic 11/06/15) [place]'s disease (Chronic) H/O ulcerative colitis (Chronic) Asthma (Chronic) COPD (chronic obstructive pulmonary disease) (Chronic) Chronic deep vein thrombosis (DVT) (Chronic) Hypertension (Chronic) 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) Abdominal wall fistula (Resolved) Surgical History Extraction of cataract (Chronic 07/28/16) Transurethral prostatectomy (Chronic 11/24/14) cystoureteroscopy,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) hernia repair (Chronic 04/08/99) repair retinal breaks (Chronic 12/24/03) transsphenoidal hypophysectomy (Chronic 11/15/93) Fracture, Closed Treatment (Resolved 02/15/16) Cholecystectomy (Inactive 02/15/16) Total colectomy (Inactive 09/25/97) Social History Smoking/Tobacco Use Status: Former Tobacco Use Alcohol Intake: never Drug use: Never Substance use type: does not use Do you feel safe at home: Yes Do you feel safe in your relationship?: Yes Exam Const General: cooperative, comfortable and no acute distress Nutritional Appearance: average body habitus Orientation: oriented x3 HENMT Head: normal to inspection Ears: hearing grossly normal bilaterally Eyes General: appearance normal, both eyes and all related structures Neck Carotids: normal carotid upstroke Lymphatic: no lymphadenopathy noted Resp Effort & Inspection: normal respiratory effort and able to speak in complete sentences Auscultation: crackles bilaterally Cardio Other: Muffled heart sounds GI Palpation: soft and no hepatosplenomegaly Percussion: normal to percussion Auscultation: normal bowel sounds Other: Colostomy day is clean liquid fluid in Results Last Vital Signs Temp 96.4 F L 07/31/18 04:09 Pulse 73 07/31/18 04:09 Resp 21 07/31/18 04:09 BP 103/58 L 07/31/18 04:09 Pulse Ox 97 07/31/18 04:09 Labs : 07/31/18 06:46 07/31/18 06:46 Laboratory Results - last 24 hr 07/30/18 07/30/18 07/30/18 10:31 10:31 10:31 WBC RBC Hgb Hct MCV MCH MCHC RDW Plt Count MPV Immature Gran % Neutrophils % Band Neutrophils % Lymphocytes % Atypical Lymphs % Monocytes % Eosinophils % Basophils % Metamyelocytes % Myelocytes % Promyelocytes % Absolute Neutrophils Absolute Lymphocytes Absolute Monocytes Absolute Eosinophils Absolute Basophils Differential Comment Other Cell Type RBC Morphology Polychromasia Hypochromasia Poikilocytosis Anisocytosis Sodium 130 L Potassium 4.6 Chloride 98 Carbon Dioxide 19.4 L Anion Gap 12.6 H BUN 43 H Creatinine 4.45 H* Estimated GFR/1.73 m2 13.01 Glucose 72 Lactate 2.2 H* Calcium 8.1 L Magnesium 1.5 L Total Bilirubin 2.0 H AST 45 H ALT 31 Alkaline Phosphatase 87 Troponin I 0.02 Total Protein 6.5 Albumin 3.3 L Lipase 180 Urine Color Urine Clarity Urine pH Ur Specific [place] Urine Protein Urine Ketones Urine Blood Urine Nitrite Urine Bilirubin Urine Urobilinogen Ur Leukocyte Esterase Urine RBC Urine WBC Ur Epithelial Cells Urine Crystals Urine Bacteria Urine Mucus Ur Culture Indicated? Urine Glucose 07/30/18 07/30/18 10:31 12:10 WBC 14.13 H RBC 4.05 L Hgb 12.5 L Hct 38.7 L MCV 95.6 H MCH 30.9 MCHC 32.3 RDW 17.3 H Plt Count 104 L MPV 12.6 H Immature Gran % 0.0 Neutrophils % 60.0 Band Neutrophils % 0.0 Lymphocytes % 7.0 Atypical Lymphs % 0 Monocytes % 30.0 Eosinophils % 1.0 Basophils % 0.0 Metamyelocytes % 0.0 Myelocytes % 0.0 Promyelocytes % 0 Absolute Neutrophils 8.48 H Absolute Lymphocytes 0.99 L Absolute Monocytes 4.24 H Absolute Eosinophils 0.14 Absolute Basophils 0.00 Differential Comment Manual differential Other Cell Type 2 RBC Morphology See below Polychromasia Present Hypochromasia 2+ Poikilocytosis 1+ Anisocytosis 1+ Sodium Potassium Chloride Carbon Dioxide Anion Gap BUN Creatinine Estimated GFR/1.73 m2 Glucose Lactate Calcium Magnesium Total Bilirubin AST ALT Alkaline Phosphatase Troponin I Total Protein Albumin Lipase Urine Color Dark yellow Urine Clarity Cloudy Urine pH 5.5 Ur Specific [place] 1.025 Urine Protein >=300 H Urine Ketones Trace H Urine Blood Moderate H Urine Nitrite Negative Urine Bilirubin Negative Urine Urobilinogen 0.2 Ur Leukocyte Esterase Small H Urine RBC Not Applicable Urine WBC Ur Epithelial Cells Not Applicable Urine Crystals Not Applicable Urine Bacteria Not Applicable Urine Mucus Not Applicable Ur Culture Indicated? Yes Urine Glucose Negative
[2018-07-31 07:06] LABS: Abs Immature Grans 0.03 k/cumm (0.0-0.09); Absolute Lymphocyte Count 0.32 k/cumm (1.2-3.4); Absolute Monocyte Count 0.67 k/cumm (0.11-0.7); Absolute Neutrophil Count 6.19 k/cumm (1.2-6.7); Anion Gap 11.7 mmol/L (3-11); BUN 42 mg/dL (7-18); CO2 21.3 mmol/L (21.0-32.0); CREATININE 3.34 mg/dL (0.70-1.30); Calcium 8.3 mg/dL (8.5-10.1); Chloride 99 mmol/L (98-107); Estimated GFR 18.11 (mL/min/1.73m2); Glucose 108 mg/dL (70-100); HCT 33.5 % (40.0-50.0); HGB 10.9 g/dL (13.5-17.5); Immature Grans % 0.4; Lymphocytes % 4.4; Magnesium 2.1 mg/dL (1.8-2.4); Mean Corp. HGB Concentration 32.5 g/dL (32.0-36.0); Mean Corpuscular Hemoglobin 30.4 pg (27.0-33.0); Mean Corpuscular Volume 93.6 fL (80-95); Mean Platelet Volume 12.4 fL (8.0-11.0); Monocytes % 9.3; Neutrophils % 85.9; Potassium 4.9 mmol/L (3.5-5.1); RBC 3.58 m/cumm (4.50-6.00); RBC Distribution Width 16.8 % (11.8-14.1); Sodium 132 mmol/L (136-145); White Blood Cell Count 7.21 k/cumm (4.4-10.8)
[2018-07-31 07:12] LABS: Platelet Count 105 x1000/uL (130-400)
[2018-07-31 07:30] VITALS: BP 104/56; PULSE 74; RESP 18; TEMP 36.1; O2SAT 96
--- NOTE | 2018-07-31 07:35 | PDOC.CMIN ---
- If Service Date Differs Date of service: 07/31/18 Time of Service: 07:35 Care Management Initial Assess REASON FOR HOSPITALIZATION:: Septic shock, UTI PAST MEDICAL HISTORY/PAST SURGICAL HISTORY:: Seizure disorder (Chronic). Subdural hematoma (Resolved). Rheumatoid arthritis (Chronic 11/06/15). DEVORAH on CPAP (Chronic 11/06/15). Depression (Chronic 08/14/17). CKD (chronic kidney disease) stage 3, GFR 30-59 ml/min (Chronic 11/06/15). Arthur's disease (Chronic). H/O ulcerative colitis (Chronic). Asthma (Chronic). COPD (chronic obstructive pulmonary disease) (Chronic). Chronic deep vein thrombosis (DVT) (Chronic). Hypertension (Chronic). 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). Abdominal wall fistula (Resolved). Extraction of cataract (Chronic 07/28/16). Transurethral prostatectomy (Chronic 11/24/14). cystoureteroscopy,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). hernia repair (Chronic 04/08/99). repair retinal breaks (Chronic 12/24/03). transsphenoidal hypophysectomy (Chronic 11/15/93). Fracture, Closed Treatment (Resolved 02/15/16). Cholecystectomy (Inactive 02/15/16). Total colectomy (Inactive 09/25/97) PREVIOUS FUNCTIONAL STATUS/SOCIAL/FAMILY SUPPORTS:: Liang resides at [facility] in [place], he states that he has been staying there since February. Liang states that his cat Griselda is with him at [facility] which he enjoys. He discussed his 's in April and how this has been a difficult time for him, due to the traumatic nature of her . Liang states that he has nieces and nephews that reside in [place] that are supportive. CURRENT FUNCTIONAL STATUS:: Currently Liang is lying in bed when this telegraphic typewriter mechanic visits this morning, he is pleasant and receptive to discussion. Liang states that he is feeling A little better today. ADVANCE DIRECTIVES:: DPOA on file - Nancy Greer and Sol Orlando are agents. COLST on file Has patient been provided with information about the portal?: Yes Did the patient sign up for the portal?: No CODE STATUS:: DNR/DNI INSURANCE COVERAGE / FINANCIAL ISSUES:: [employer] [place] CURRENT HOME/COMMUNITY SERVICES/EQUIPMENT:: Currently Liang receives all services and equipment needs through [facility]. He reports that he uses a 4WW at [facility] which he brought from his home. PRIMARY CARE PHYSICIAN:: Sheeba Morelos POTENTIAL DISCHARGE NEEDS:: Return to previous level of care at [facility] PATIENT/FAMILY EDUCATION NEEDS:: Review DC instructions, any limitations, and ongoing DC planning discussion. Discuss 'Ask Me Three' ANTICIPATED BARRIERS TO DISCHARGE:: None identified at this time. TRANSPORTATION:: Liang will transport via [facility] at time of DC. PLAN:: Liang will return to [facility] once medically cleared. He will transport via [facility] when ready.
--- NOTE | 2018-07-31 07:45 | INITIAL_ITS ---
- If Service Date Differs Date of service: 07/31/18 Time of Service: 07:35 Care Management Initial Assess REASON FOR HOSPITALIZATION:: Septic shock, UTI PAST MEDICAL HISTORY/PAST SURGICAL HISTORY:: Seizure disorder (Chronic). Subdural hematoma (Resolved). Rheumatoid arthritis (Chronic 11/06/15). DEVORAH on CPAP (Chronic 11/06/15). Depression (Chronic 08/14/17). CKD (chronic kidney disease) stage 3, GFR 30-59 ml/min (Chronic 11/06/15). Arthur's disease (Chronic). H/O ulcerative colitis (Chronic). Asthma (Chronic). COPD (chronic obstructive pulmonary disease) (Chronic). Chronic deep vein thrombosis (DVT) (Chronic). Hypertension (Chronic). 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). Abdominal wall fistula (Resolved). Extraction of cataract (Chronic 07/28/16). Transurethral prostatectomy (Chronic 11/24/14). cystoureteroscopy,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). hernia repair (Chronic 04/08/99). repair retinal breaks (Chronic 12/24/03). transsphenoidal hypophysectomy (Chronic 11/15/93). Fracture, Closed Treatment (Resolved 02/15/16). Cholecystectomy (Inactive 02/15/16). Total colectomy (Inactive 09/25/97) PREVIOUS FUNCTIONAL STATUS/SOCIAL/FAMILY SUPPORTS:: Liang resides at [facility] in [place], he states that he has been staying there since February. Liang states that his cat Griselda is with him at [facility] which he enjoys. He discussed his 's in April and how this has been a difficult time for him, due to the traumatic nature of her . Liang states that he has nieces and nephews that reside in [place] that are supportive. CURRENT FUNCTIONAL STATUS:: Currently Liang is lying in bed when this editorial writer visits this morning, he is pleasant and receptive to discussion. Liang states that he is feeling A little better today. ADVANCE DIRECTIVES:: DPOA on file - Nancy Greer and Sol Orlando are agents. COLST on file Has patient been provided with information about the portal?: Yes Did the patient sign up for the portal?: No CODE STATUS:: DNR/DNI INSURANCE COVERAGE / FINANCIAL ISSUES:: [employer] [place] CURRENT HOME/COMMUNITY SERVICES/EQUIPMENT:: Currently Liang receives all services and equipment needs through [facility]. He reports that he uses a 4WW at [facility] which he brought from his home. PRIMARY CARE PHYSICIAN:: Sheeba Morelos POTENTIAL DISCHARGE NEEDS:: Return to previous level of care at [facility] PATIENT/FAMILY EDUCATION NEEDS:: Review DC instructions, any limitations, and ongoing DC planning discussion. Discuss 'Ask Me Three' ANTICIPATED BARRIERS TO DISCHARGE:: None identified at this time. TRANSPORTATION:: Liang will transport via [facility] at time of DC. PLAN:: Liang will return to [facility] once medically cleared. He will transport via [facility] when ready.
[2018-07-31] MEDS: Cholestyramine/Aspartame PKT 1 EACH PO (09:32)
[2018-07-31] MEDS: Ondansetron 4 MG TAB PO (09:32)
[2018-07-31] MEDS: Fludrocortisone 0.1 MG TAB 0.15 MG PO (09:33)
[2018-07-31] MEDS: Pantoprazole 40 MG TABCR PO (09:33)
[2018-07-31] MEDS: Montelukast 10 MG TAB PO (09:34)
[2018-07-31] MEDS: Folic Acid 1 MG TAB PO (09:34)
[2018-07-31] MEDS: Citalopram 20 MG TAB PO (09:34)
[2018-07-31] MEDS: Lacosamide 100 MG TAB PO ×2 (09:34→20:01)
[2018-07-31] MEDS: Budesonide/Formoterol 160/4.5 6 GM 60 PUFF INH IH ×2 (09:48→20:02)
[2018-07-31 11:09] VITALS: BP 111/54; BP 117/60; BP 118/65; PULSE 76; PULSE 92; RESP 16; TEMP 36.4; O2SAT 95
--- NOTE | 2018-07-31 11:23 | PT.INIE ---
Date of service: 07/31/18 Time of Service: 11:23 PT Notes Inpatient Physical Therapy Evaluation Date: 07/31/2018 Referring Doctor: Karen Mendoza MD PT Orders: PT CONSULT: Eval/treat Precautions: Fall. Contact precautions. Patient Profile/Admitting Diagnosis: Orders received for this 77-year-old male who presented to the ED on 07/30/2018 with chief complaint of weakness. Patient was diagnosed with septic shock, UTI, acute adrenal insufficiency, acute on chronic kidney disease, dehydration, and diarrhea. 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 He is pleasant and cooperative. He did state he did say that he had a restless night last night. He hopes to go back to the [facility] as soon as he is medically stable. Objective: General Observation: Patient seen resting in bed. IV in right UE. Howe catheter in place. Ileostomy in place. Mental Status: Alert and oriented x3 Pain: 0/10 ROM: Right Upper Extremity: Shoulder Flexion WFL. Shoulder abduction WFL. Elbow flexion WFL. Wrist flexion WFL. Functional opening and closing of hand WFL. Left Upper Extremity: Shoulder Flexion WFL. Shoulder abduction WFL. Elbow flexion WFL. Wrist flexion WFL. Functional opening and closing of hand WFL. Right Lower Extremity: Hip flexion 0 to 100 degrees in supine, 0 to 70 degrees. Hip abduction 0 to 10 degrees. Knee flexion WFL. Ankle dorsiflexion WFL. Ankle plantarflexion WFL. Left Lower Extremity: Hip flexion 0 to 100 degrees in supine, 0 to 70 degrees. Hip abduction 0 to 10 degrees. Knee flexion WFL. Ankle dorsiflexion WFL. Ankle plantarflexion WFL. Strength: Right Upper Extremity: Shoulder flexors 4+/5. Shoulder abductors 4+ /5. Elbow flexors 4+/5. Elbow extensors 4+/5. Bench Hand Machine strong. Left Upper Extremity: Shoulder flexors 4+/5. Shoulder abductors 4+ /5. Elbow flexors 4+/5. Elbow extensors 4+/5. Bench Hand Machine strong. Right Lower Extremity: Hip flexors 3-/5. Hip abductors 3-/5. Knee flexors 3+/5. Knee extensors 3+/5. Ankle dorsiflexors 4/5. Ankle plantarflexors 4/5. Left Lower Extremity:Hip flexors 3-/5. Hip abductors 3-/5. Knee flexors 3+/5. Knee extensors 3+/5. Ankle dorsiflexors 4/5. Ankle plantarflexors 4/5. Sensation: Intact as to pain and pressure to bilateral LEs. Bed Mobility/Transfers: Rolling minimal assist Sit to supine minimal assist Sit to stand minimal assist Stand to sit minimal assist Bed to chair minimal assist Chair to bed minimal assist Gait: Patient was able to tolerate 30 in room ambulation with 6 turns with minimal assist using FWW with complaints of mild abdominal ache that disappeared with rest. Patient states that he is at some time prior to hospitalization and he feels that it may be related to gas. Student nurse aware of said complaint. Balance: Static Sitting: Good Dynamic Sitting: Good Static Standing: Fair Dynamic Standing: Fair Special Tests: Mobility Limitations Standardized Measure [facility] 6 clicks Basic Mobility Inpatient Short Form: Raw Score: 18 CMS Score: 47% deficit Informed Consent/Education: Patient instructed in purpose of PT consult and plan of care. Patient was was instructed about making sure somebody is with him for all transfers and ambulation activities for safety. Assessment: Patient is a 77 year old male referred to physical therapy services with the diagnosis of generalized weakness from septic shock, UTI, acute adrenal insufficiency, acute on chronic kidney disease, dehydration, and diarrhea. Patient presents with clinical signs and symptoms consistent with current/admitting diagnoses that have resulted to mobility limitations, gait instability, generalized weakness, and impairment of motor control as demonstrated by the following impairment level findings: 1. Decreased strength to B LE major muscle groups 2. Impaired sitting/standing balance 3. Impaired activity tolerance Impairments are contributing to the following functional limitations: 1. Dependent bed mobility skills 2. Increased dependence with transfers 3. Inability to safely ambulate without assistive device and physical assistance 4. Increase completion time for mobility ADL performance 5. Increased fall risk 6. Inability to negotiate steps alone safely Patient is assessed as a Moderate 77968 complexity based on the following: History: 77-year-old male who is a resident of the [facility] admitted on 07/30/2018 with above diagnosis Examination: Underlying impairments and functional limitations as noted above Presentation: Evolving Decision Makin to moderate complexity Goals: Goals X1 week 1. Supine-Sit independent 2. Sit-Supine independent 3. Sit-Stand independent 4. Stand-Sit independent 5. Bed-Chair independent 6. Chair-Bed independent 7. Independent gait on level surface with use of least restrictive device for at least 100 feet without report of pain nor dyspnea 8. Independent with home exercise program 9. Good static and dynamic standing balance/tolerance Plan of Care/Treatment Plan: 1-2x/day, 7 days/week x 1 week. Plan of care has been reviewed with the CUTTER MACHINE TENDER providing the service under Physical Therapy direction. Initiate Physical Therapy intervention for strengthening, bed mobility, transfers, gait, stairs, balance training, use of assistive device. DISCHARGE RECOMMENDATIONS: Patient to return back to the [facility] on palliative care at highest mobility level. He will continue to benefit from SNF PT services to regain independent mobility level using 4WW. TREATMENT CODE/TIME: 72582 for 29 minutes getting at 10:38 AM. Thank you for this referral. Nery Hall, PT, DPT, CLT [facility]
--- NOTE | 2018-07-31 11:26 | IN_ITS ---
Date of service: 07/31/18 Time of Service: 11:23 PT Notes Inpatient Physical Therapy Evaluation Date: 07/31/2018 Referring Doctor: Karen Mendoza MD PT Orders: PT CONSULT: Eval/treat Precautions: Fall. Contact precautions. Patient Profile/Admitting Diagnosis: Orders received for this 77-year-old male who presented to the ED on 07/30/2018 with chief complaint of weakness. Patient was diagnosed with septic shock, UTI, acute adrenal insufficiency, acute on chronic kidney disease, dehydration, and diarrhea. 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 He is pleasant and cooperative. He did state he did say that he had a restless night last night. He hopes to go back to the [facility] as soon as he is medically stable. Objective: General Observation: Patient seen resting in bed. IV in right UE. Howe catheter in place. Ileostomy in place. Mental Status: Alert and oriented x3 Pain: 0/10 ROM: Right Upper Extremity: Shoulder Flexion WFL. Shoulder abduction WFL. Elbow flexion WFL. Wrist flexion WFL. Functional opening and closing of hand WFL. Left Upper Extremity: Shoulder Flexion WFL. Shoulder abduction WFL. Elbow flexion WFL. Wrist flexion WFL. Functional opening and closing of hand WFL. Right Lower Extremity: Hip flexion 0 to 100 degrees in supine, 0 to 70 degrees. Hip abduction 0 to 10 degrees. Knee flexion WFL. Ankle dorsiflexion WFL. Ankle plantarflexion WFL. Left Lower Extremity: Hip flexion 0 to 100 degrees in supine, 0 to 70 degrees. Hip abduction 0 to 10 degrees. Knee flexion WFL. Ankle dorsiflexion WFL. Ankle plantarflexion WFL. Strength: Right Upper Extremity: Shoulder flexors 4+/5. Shoulder abductors 4+ /5. Elbow flexors 4+/5. Elbow extensors 4+/5. Environmental Sampler strong. Left Upper Extremity: Shoulder flexors 4+/5. Shoulder abductors 4+ /5. Elbow flexors 4+/5. Elbow extensors 4+/5. Environmental Sampler strong. Right Lower Extremity: Hip flexors 3-/5. Hip abductors 3-/5. Knee flexors 3+/5. Knee extensors 3+/5. Ankle dorsiflexors 4/5. Ankle plantarflexors 4/5. Left Lower Extremity:Hip flexors 3-/5. Hip abductors 3-/5. Knee flexors 3+/5. Knee extensors 3+/5. Ankle dorsiflexors 4/5. Ankle plantarflexors 4/5. Sensation: Intact as to pain and pressure to bilateral LEs. Bed Mobility/Transfers: Rolling minimal assist Sit to supine minimal assist Sit to stand minimal assist Stand to sit minimal assist Bed to chair minimal assist Chair to bed minimal assist Gait: Patient was able to tolerate 30 in room ambulation with 6 turns with minimal assist using FWW with complaints of mild abdominal ache that disappeared with rest. Patient states that he is at some time prior to hospitalization and he feels that it may be related to gas. Student nurse aware of said complaint. Balance: Static Sitting: Good Dynamic Sitting: Good Static Standing: Fair Dynamic Standing: Fair Special Tests: Mobility Limitations Standardized Measure [facility] 6 clicks Basic Mobility Inpatient Short Form: Raw Score: 18 CMS Score: 47% deficit Informed Consent/Education: Patient instructed in purpose of PT consult and plan of care. Patient was was instructed about making sure somebody is with him for all transfers and ambulation activities for safety. Assessment: Patient is a 77 year old male referred to physical therapy services with the diagnosis of generalized weakness from septic shock, UTI, acute adrenal insufficiency, acute on chronic kidney disease, dehydration, and diarrhea. Patient presents with clinical signs and symptoms consistent with current/admitting diagnoses that have resulted to mobility limitations, gait instability, generalized weakness, and impairment of motor control as demonstrated by the following impairment level findings: 1. Decreased strength to B LE major muscle groups 2. Impaired sitting/standing balance 3. Impaired activity tolerance Impairments are contributing to the following functional limitations: 1. Dependent bed mobility skills 2. Increased dependence with transfers 3. Inability to safely ambulate without assistive device and physical assistance 4. Increase completion time for mobility ADL performance 5. Increased fall risk 6. Inability to negotiate steps alone safely Patient is assessed as a Moderate 37215 complexity based on the following: History: 77-year-old male who is a resident of the [facility] admitted on 07/30/2018 with above diagnosis Examination: Underlying impairments and functional limitations as noted above Presentation: Evolving Decision Makin to moderate complexity Goals: Goals X1 week 1. Supine-Sit independent 2. Sit-Supine independent 3. Sit-Stand independent 4. Stand-Sit independent 5. Bed-Chair independent 6. Chair-Bed independent 7. Independent gait on level surface with use of least restrictive device for at least 100 feet without report of pain nor dyspnea 8. Independent with home exercise program 9. Good static and dynamic standing balance/tolerance Plan of Care/Treatment Plan: 1-2x/day, 7 days/week x 1 week. Plan of care has been reviewed with the PRINCIPAL SOFTWARE ENGINEER providing the service under Physical Therapy direction. Initiate Physical Therapy intervention for strengthening, bed mobility, transfers, gait, stairs, balance training, use of assistive device. DISCHARGE RECOMMENDATIONS: Patient to return back to the [facility] on palliative care at highest mobility level. He will continue to benefit from SNF PT services to regain independent mobility level using 4WW. TREATMENT CODE/TIME: 03656 for 29 minutes getting at 10:38 AM. Thank you for this referral. Nery Hall, PT, DPT, CLT [facility]
[2018-07-31 11:31] LABS: Campylobacter PCR SEE COMMENTS; Result Negative; Salmonella PCR SEE COMMENTS; Shiga Toxin PCR SEE COMMENTS; Shigella/Enteroinvasive Ecoli SEE COMMENTS; Specimen Description Feces
--- NOTE | 2018-07-31 12:36 | OT.INIE ---
Occupational Therapy Notes Inpatient Occupational Therapy Evaluation Date: 07/31/18 Referring Doctor: Karen Mendoza MD OT Orders: Eval and Treat Precautions: Fall, Contact PATIENT PROFILE/ADMITTING DIAGNOSIS: Pt is a 77 year old male who was admitted to [facility] for septic shock, UTI, acute adrenal insufficiency, acute on chronic kidney disease, dehydration, and diarrhea. 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 He reports that his baseline is fairly (I) he reports the only thing he cannot perform (I) is walking with his water and washing his back. Equipment owned/DME: Lives at [facility] all DME needs met. SUBJECTIVE: Pt was sitting in bed when OT arrived. He was agreeable to OT consult. OBJECTIVE: General Observation: IV (R) UE, Howe, Mental Status: A&Ox3 Pain: no c/o pain ROM: RUE AROM WFL L UE AROM WFL STRENGTH: RUE 4-/5 throughout LUE 4/5 throughout FUNCTIONAL MOBILITY/ADLS: Supine-sit (I) Sit-supine (I) BATHING Sitting on side of bed Bathing UE (I), max (A) back Bathing LE (I) DRESSING Sitting on side of bed Dressing UE Min (A) [facility] gown Dressing LE NT BALANCE: Static sitting Normal Dynamic Sitting Normal Static Standing NT Dynamic Standing NT SPECIAL TESTS: Daily Activity Limitations Standardized Measure [facility] AM -PAC ?6 clicks? Daily Activity Inpatient Short Form: Raw score: 22 INFORMED CONSENT/EDUCATION: Pt instructed in purpose of OT Consult and plan of care. ASSESSMENT: Patient is a 77-year-old male referred to occupational therapy services with diagnosis of septic shock, UTI, acute adrenal insufficiency, acute on chronic kidney disease, dehydration, and diarrhea. Patient presents with clinical signs and symptoms consistent with dx, as demonstrated by the following impairment level findings/functional limitations: Decreased functional activity tolerance, decreased (I) functional mobility, decreased bed mobility, decreased (I) in ADL/IADL, significant PMHx. [facility] score 22 Patient is assessed as a Moderate 19423 complexity based on the following: History: See Above Examination: See Above Presentation: Evolving Decision Making: Moderate complexity GOALS Goals x1 week 1. Transfers FWW (S) 2. Dressing Sitting in chair (I) 3. Bathing Standing at sink (I) washing UE/sitting (I) LE 4. Toileting (I) toilet 5. Eating (I) PLAN OF CARE/TREATMENT PLAN: 1x/day, 5 days/ week x 1week Initiate Occupational Therapy Services for bathing, dressing, grooming, toileting, eating, transfer training. DISCHARGE RECOMMENDATIONS OT recommends that pt return to [facility] when medically cleared per MD. TREATMENT TIME/MINUTES/CODES 15530, 97189, 25 minutes (10:10) [facility]
--- NOTE | 2018-07-31 12:41 | OTIE_ITS ---
Occupational Therapy Notes Inpatient Occupational Therapy Evaluation Date: 07/31/18 Referring Doctor: Karen Mendoza MD OT Orders: Eval and Treat Precautions: Fall, Contact PATIENT PROFILE/ADMITTING DIAGNOSIS: Pt is a 77 year old male who was admitted to [facility] for septic shock, UTI, acute adrenal insufficiency, acute on chronic kidney disease, dehydration, and diarrhea. 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. He reports that his baseline is fairly (I) he reports the only thing he cannot perform (I) is walking with his water and washing his back. Equipment owned/DME: Lives at [facility] all DME needs met. SUBJECTIVE: Pt was sitting in bed when OT arrived. He was agreeable to OT consult. OBJECTIVE: General Observation: IV (R) UE, Howe, Mental Status: A&Ox3 Pain: no c/o pain ROM: RUE AROM WFL L UE AROM WFL STRENGTH: RUE 4-/5 throughout LUE 4/5 throughout FUNCTIONAL MOBILITY/ADLS: Supine-sit (I) Sit-supine (I) BATHING Sitting on side of bed Bathing UE (I), max (A) back Bathing LE (I) DRESSING Sitting on side of bed Dressing UE Min (A) [facility] gown Dressing LE NT BALANCE: Static sitting Normal Dynamic Sitting Normal Static Standing NT Dynamic Standing NT SPECIAL TESTS: Daily Activity Limitations Standardized Measure [facility] AM -PAC ?6 clicks? Daily Activity Inpatient Short Form: Raw score: 22 INFORMED CONSENT/EDUCATION: Pt instructed in purpose of OT Consult and plan of care. ASSESSMENT: Patient is a 77-year-old male referred to occupational therapy services with diagnosis of septic shock, UTI, acute adrenal insufficiency, acute on chronic kidney disease, dehydration, and diarrhea. Patient presents with clinical signs and symptoms consistent with dx, as demonstrated by the following impairment level findings/functional limitations: Decreased functional activity tolerance, decreased (I) functional mobility, decreased bed mobility, decreased (I) in ADL/IADL, significant PMHx. [facility] score 22 Patient is assessed as a Moderate 65034 complexity based on the following: History: See Above Examination: See Above Presentation: Evolving Decision Making: Moderate complexity GOALS Goals x1 week 1. Transfers FWW (S) 2. Dressing Sitting in chair (I) 3. Bathing Standing at sink (I) washing UE/sitting (I) LE 4. Toileting (I) toilet 5. Eating (I) PLAN OF CARE/TREATMENT PLAN: 1x/day, 5 days/ week x 1week Initiate Occupational Therapy Services for bathing, dressing, grooming, toileting, eating, transfer training. DISCHARGE RECOMMENDATIONS OT recommends that pt return to [facility] when medically cleared per MD. TREATMENT TIME/MINUTES/CODES 41115, 62879, 25 minutes (10:10) [facility]
[2018-07-31] MEDS: Omnipaque 350 MG/ML 50 ML BTL PO (14:01)
[2018-07-31] MEDS: Breeza Beverage 473 ML BTL PO (14:02)
--- NOTE | 2018-07-31 14:02 | DI.CT_ITS ---
SYMPTOMS/DIAGNOSIS: DIARRHEA, ABDOMINAL PAIN, ACUTE KIDNEY INJURY, SEPTIC SHOCK, ? COLITIS, UROPATHY CT SCAN OF THE ABDOMEN AND PELVIS: Noncontrast CT scan of the abdomen and pelvis was performed without intravenous contrast material. Oral contrast was administered. Atelectatic changes are seen in the lung bases. Lack of IV contrast does limit evaluation of the abdominal and pelvic organs. The unenhanced liver, spleen and pancreas are unremarkable. The gallbladder appears absent. There is no biliary ductal dilatation. The left kidney shows no evidence of nephrolithiasis or hydronephrosis. 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 There is a nonobstructing 1 cm stone in the superior pole of the right kidney. This was present on prior examination. There are right renal cysts, which appear stable. The urinary bladder is intact. There is a Howe catheter in place. The patient is status post colectomy. There is an ostomy again seen in the left lower quadrant. There are dilated loops of small bowel with fluid levels suspicious for bowel obstruction. The transition appears to lie in the right lower quadrant. Ileus cannot be excluded. There is atherosclerosis of the abdominal aorta, but no aneurysmal dilatation. No significant abdominal or pelvic adenopathy, ascites or pneumoperitoneum is present. Moderately severe degenerative changes are present throughout the spine. There are stable compression deformities of T12, L1 and L2. IMPRESSION: Dilated loops of small bowel as described with air-fluid levels. The findings raise the question of a bowel obstruction. There does appear to be a transition in the right lower quadrant. Ileus cannot be excluded.
--- NOTE | 2018-07-31 14:04 | CHAPLAIN ---
Liang was sitting up in his chair when I visited. We know each other from previous admissions and I visited him at the [facility] shortly after his Steffany in April to hold a short service with Liang and other [facility] residents. Liang was pleasant today, but talked about his physical discomfort and how long the winter had seemed. He talked about his siblings, he had six. He is the youngest, and only his oldest sister survives. She lives in [place] and they talk on the phone to keep in touch. I left when Liang received a phone call, but will visit again.
[2018-07-31] MEDS: CIPROFLOXACIN 200 MG/100 ML BAG 100 MG IVPB (14:05)
[2018-07-31] MEDS: Lactobacillus Acidophilus CAP 1 CAP PO ×2 (14:06→20:01)
[2018-07-31] MEDS: FAMOTIDINE 20 MG/50 ML BAG 200 MG IVPB (15:08)
[2018-07-31] MEDS: metroNIDAZOLE 500 MG/100 ML BAG 100 MG IVPB (15:08)
[2018-07-31] MEDS: Normal Saline Flush 10 ML SYR IVP ×2 (15:09→16:35)
[2018-07-31 15:36] VITALS: BP 118/54; PULSE 67; RESP 18; TEMP 36.7; O2SAT 98
--- NOTE | 2018-07-31 16:08 | PGE_ITS ---
Date of Service Date of service: 07/31/18 Time of Service: 16:14 Assessment and Plan (1) Ileus: Current visit: Yes Status: Acute Making NPO. Surgery consulted. Continue IVF, steroids, treat UTI. (2) Septic shock: Current visit: Yes Status: Resolved Possibly multifactorial, but at a minimum due to UTI present on admission with history of vancomycin sensitive E. faecium. Awaiting stool studies, but per my discussion with Dr Sibley, there does not appear to be enteritis. Will continue vancomycin, cipro (day 2). Continue aggressive IVF and stress dose steroids. (3) UTI (urinary tract infection): Current visit: Yes Status: Acute Present on admission; cx pending. In setting of chronic urinary retention, also noted on presentation. Continue blackmon, abx as above (4) Acute adrenal insufficiency: Current visit: Yes Status: Acute Continue stress dose steroids. (5) Acute kidney injury superimposed on chronic kidney disease: Current visit: Yes Status: Acute Improved, combined obstructive and prerenal. Continue IVF. Continue to monitor kidney function. (6) Dehydration: Current visit: Yes Status: Acute Due to Diarrhea and UTI. Continue IVF. Questran d/c'ed due to evidence of ileus on CT of the abdomen. (7) Urinary retention: Current visit: Yes Status: Acute s/p prostatectomy; still requiring a blackmon catheter. Patient has had an adverse reaction to flomax. (8) Diarrhea: Current visit: Yes Status: Acute Likely due to an ileus. Stool studies are pending. NPO. Surgery consulted. (9) Seizure disorder: Current visit: No Status: Chronic Continue vimpat (10) Subdural hematoma: Current visit: No Status: Resolved Per patient, a long time ago. Heparin d/c'ed due to hem + stools. (11) Weakness: Current visit: No Status: Acute Likely due to sepsis and adrenal insufficiency. PT/OT consults. (12) Rheumatoid arthritis: Current visit: No Status: Chronic Hold methotrexate (13) DEVORAH on CPAP: Current visit: No Status: Chronic Provide CPAP at night (14) Benign prostatic hypertrophy: Current visit: No Status: Chronic Read re urinary retention above (15) Discharge planning issues: Current visit: No Status: Acute DNR/DNI. The patient is not firmly against ICU, per my conversation with him. Prognosis guarded. (16) DVT prophylaxis: Current visit: Yes Status: Acute Heparin d/c'ed due to Hem + stools. SCD's + TEDs. Subjective Interval history since last seen: Mr Wang complains of abdominal pain, es pecially so in his lower abdomen today. He states that he is willing to have imaging to find out why he is having abdominal pain. He denies dizziness, chest pain, shortness of breath. Complains of intermittent cough - productive of whitish sputum. Denies nausea/vomiting. Does report regurgitation of food he ate this morning. Exam Narrative Exam Narrative: General: Very pleasant elderly male, sitting up in a chair, looking better, A&Ox3 HEENT: EOMI, MMM Cardiovascular: RRR, quiet ANN Lungs: Diminished breath sounds B Gastrointestinal: LLQ ileoustomy with gas in the bag and clear output; TTP lower abdomen diffusely Genitourinary: has a blackmon Extremities: no e/c/c BLE's, warm, +1 pedal pulses B Objective Objective Clinical Data: Abnormal lab results 07/31/18 07/31/18 Range/Units 06:46 06:46 RBC 3.58 L (4.50-6.00) m/cumm Hgb 10.9 L (13.5-17.5) g/dL Hct 33.5 L (40.0-50.0) % RDW 16.8 H (11.8-14.1) % Plt Count 105 L (130-400) x1000/uL MPV 12.4 H (8.0-11.0) fL Absolute Lymphocytes 0.32 L (1.2-3.4) k/cumm Sodium 132 L (136-145) mmol/L Anion Gap 11.7 H (3-11) mmol/L BUN 42 H (7-18) mg/dL Creatinine 3.34 H D (0.70-1.30) mg/dL Glucose 108 H (70-100) mg/dL Calcium 8.3 L (8.5-10.1) mg/dL Vital Signs Temperature 36.7 C 07/31/18 15:36 Temperature Source Tympanic 07/31/18 15:36 Pulse 67 07/31/18 15:36 Pulse Rhythm Regular 07/31/18 07:50 Pulse 93 H 07/30/18 13:31 Respiratory Rate 18 07/31/18 15:36 Respiratory Effort Non-Labored 07/31/18 07:50 Respiratory Depth Normal 07/31/18 07:50 Respiratory Pattern Normal 07/31/18 07:50 Blood Pressure 118/54 L 07/31/18 15:36 Blood Pressure Mean 58 07/30/18 13:31 Blood Pressure Position Supine 07/30/18 10:24 Pulse Oximetry 98 07/31/18 15:36 Oxygen Delivery Method Room Air 07/31/18 15:36 Oxygen Flow Rate 0 07/31/18 15:36 Pain Level 0 07/31/18 10:32 Intake & Output 07/30/18 07/31/18 07/31/18 23:59 11:59 23:59 Intake Total 3782.5 / 5282.5 2740 / 3315 575 / 3315 Output Total 2840 / 2840 1675 / 1675 Balance 942.5 / 2442.5 1065 / 1640 575 / 1640 Weight 78.8 kg 79.8 kg Intake: IV 3782.5 / 5282.5 2250 / 2585 335 / 2585 Oral 490 / 730 240 / 730 Output: Urine 1600 / 1600 900 / 900 Stool 1240 / 1240 775 / 775 Other: Urine Color Yellow Yellow Urine Appearance Clear Clear Stool Occult Blood Negative Positive Stool Size Moderate Stool Characteristics Liquid Liquid Green Green Laboratory Results WBC 7.21 k/cumm (4.4-10.8) D 07/31/18 06:46 RBC 3.58 m/cumm (4.50-6.00) L 07/31/18 06:46 Hgb 10.9 g/dL (13.5-17.5) L 07/31/18 06:46 Hct 33.5 % (40.0-50.0) L 07/31/18 06:46 MCV 93.6 fL (80-95) 07/31/18 06:46 MCH 30.4 pg (27.0-33.0) 07/31/18 06:46 MCHC 32.5 g/dL (32.0-36.0) 07/31/18 06:46 RDW 16.8 % (11.8-14.1) H 07/31/18 06:46 Plt Count 105 x1000/uL (130-400) L 07/31/18 06:46 MPV 12.4 fL (8.0-11.0) H 07/31/18 06:46 Immature Gran % 0.4 07/31/18 06:46 Neutrophils % 85.9 07/31/18 06:46 Band Neutrophils % 0.0 % 07/30/18 10:31 Lymphocytes % 4.4 07/31/18 06:46 Atypical Lymphs % 0 07/30/18 10:31 Monocytes % 9.3 07/31/18 06:46 Eosinophils % 0.0 07/31/18 06:46 Basophils % 0.0 07/31/18 06:46 Metamyelocytes % 0.0 % 07/30/18 10:31 Myelocytes % 0.0 % 07/30/18 10:31 Promyelocytes % 0 % 07/30/18 10:31 Absolute Neutrophils 6.19 k/cumm (1.2-6.7) 07/31/18 06:46 Absolute Lymphocytes 0.32 k/cumm (1.2-3.4) L 07/31/18 06:46 Absolute Monocytes 0.67 k/cumm (0.11-0.7) 07/31/18 06:46 Absolute Eosinophils 0.00 k/cumm (0.0-0.7) 07/31/18 06:46 Absolute Basophils 0.00 k/cumm (0.0-0.2) 07/31/18 06:46 Differential Comment Manual differential 07/30/18 10:31 Other Cell Type 2 07/30/18 10:31 RBC Morphology See below 07/30/18 10:31 Polychromasia Present 07/30/18 10:31 Hypochromasia 2+ 07/30/18 10:31 Poikilocytosis 1+ 07/30/18 10:31 Anisocytosis 1+ 07/30/18 10:31 Sodium 132 mmol/L (136-145) L 07/31/18 06:46 Potassium 4.9 mmol/L (3.5-5.1) 07/31/18 06:46 Chloride 99 mmol/L (98-107) 07/31/18 06:46 Carbon Dioxide 21.3 mmol/L (21.0-32.0) 07/31/18 06:46 Anion Gap 11.7 mmol/L (3-11) H 07/31/18 06:46 BUN 42 mg/dL (7-18) H 07/31/18 06:46 Creatinine 3.34 mg/dL (0.70-1.30) H D 07/31/18 06:46 Estimated GFR/1.73 m2 18.11 (mL/min/1.73m2) 07/31/18 06:46 Glucose 108 mg/dL (70-100) H 07/31/18 06:46 Lactate 2.2 mmol/L (0.6-1.4) H* 07/30/18 10:31 Calcium 8.3 mg/dL (8.5-10.1) L 07/31/18 06:46 Magnesium 2.1 mg/dL (1.8-2.4) 07/31/18 06:46 Total Bilirubin 2.0 mg/dL (0.2-1.0) H 07/30/18 10:31 AST 45 U/L (15-37) H 07/30/18 10:31 ALT 31 U/L (12-78) 07/30/18 10:31 Alkaline Phosphatase 87 U/L (46-116) 07/30/18 10:31 Troponin I 0.02 ng/mL (0.00-0.06) 07/30/18 10:31 Total Protein 6.5 g/dL (6.4-8.2) 07/30/18 10:31 Albumin 3.3 g/dL (3.4-5.0) L 07/30/18 10:31 Lipase 180 U/L (73-393) 07/30/18 10:31 Urine Color Dark yellow (Yellow) 07/30/18 12:10 Urine Clarity Cloudy 07/30/18 12:10 Urine pH 5.5 (5-8) 07/30/18 12:10 Ur Specific [place] 1.025 (1.005-1.025) 07/30/18 12:10 Urine Protein >=300 mg/dL (Negative) H 07/30/18 12:10 Urine Ketones Trace mg/dL (Negative) H 07/30/18 12:10 Urine Blood Moderate (Negative) H 07/30/18 12:10 Urine Nitrite Negative (Negative) 07/30/18 12:10 Urine Bilirubin Negative (Negative) 07/30/18 12:10 Urine Urobilinogen 0.2 EU/dL (Up TO 0.2) 07/30/18 12:10 Ur Leukocyte Esterase Small (Negative) H 07/30/18 12:10 Urine RBC Not Applicable 07/30/18 12:10 Urine WBC HPF (0-5) 07/30/18 12:10 Ur Epithelial Cells Not Applicable 07/30/18 12:10 Urine Crystals Not Applicable 07/30/18 12:10 Urine Bacteria Not Applicable 07/30/18 12:10 Urine Mucus Not Applicable 07/30/18 12:10 Ur Culture Indicated? Yes 07/30/18 12:10 Urine Glucose Negative mg/dL (Negative) 07/30/18 12:10 Stool Campylobacter PCR See comments 07/30/18 12:00 Stl C.difficile Tox PCR Negative 07/30/18 12:00 Stool Salmonella PCR See comments 07/30/18 12:00 Stool Shigella PCR See comments 07/30/18 12:00 C.difficile Tox Source Feces 07/30/18 12:00 Shiga Toxin (PCR) See comments 07/30/18 12:00 Path Cons Comment See comment 07/30/18 10:31 CT abdomen/pelvis: Dilated loops of small bowel as described with air-fluid levels. The findings raise the question of a bowel obstruction. There does appear to be a transition in the right lower quadrant. Ileus cannot be excluded.
--- NOTE | 2018-07-31 16:26 | PT.INTREAT ---
Date of service: 07/31/18 Time of Service: 15:50 PT Notes Inpatient Physical Therapy Treatment Note [facility] Date: 07/31/2018 PRECAUTIONS: Fall. Standard. SUBJECTIVE: Patient reports that he did not sleep well last night. He complains of intermittent abdominal pain and he states that he went down for abdominal CT scan pending results. He is agreeable to a second session this afternoon. OBJECTIVE: Patient seen sitting on his chair. PAIN: Intermittent abdominal pain patient describes as moderate. BED MOBILITY/TRANSFERS Rolling L/R: Minimal assist Supine-sit: Minimal assist Sit-supine: Minimal assist Sit-stand: Minimal assist Stand-sit: Minimal assist Bed-Chair: Minimal assist Chair-bed: Minimal assist THEREX: Patient completed seated/reclined level exercises as follows: LAQs , hip flexion, knee flexion, leg raises, unilateraL [id number] x 10 reps as indicated in exercise flow sheet without undue fatigue, significant increase in pain, increase in dyspnea. ASSESSMENT: Patient demonstrates good tolerance to physical therapy session with observed improvement in terms of pain level, activity tolerance, self-efficacy/confidence, and participation level. PLAN: Patient to progress with mobility level, functional performance, and knowledge of HEP to achieve previously established goals. TREATMENT CODE/TIME: 29440 x2 beginning at 15:50 p.m..
[2018-07-31 16:32] LABS: Diff Comment Diff Reviewed; RBC Morphology Normal
--- NOTE | 2018-07-31 16:32 | W.SURGCON ---
Date of service: 07/31/18 Time of Service: 16:32 Assessment and Plan (1) Ileus: Current visit: Yes Status: Acute A\\ CT scan with dilated small bowel and stomach proximal and high output ileostomy. This is most consistent with ileus then with obstruction. He had a similar picture last year which resolved with non-surgical supportive management. He has had multiple abdominal surgeries all done at [facility]. P\\ Recommend bowel rest with NPO except medications Ambulation tid If patient doesn't improve and we think he may need surgery I think the prudent thing would be to refer him back to [facility] for this. The plan of NPO status and IV hydration was discussed with the patient and he agrees with the plan as stated. recommendations discussed with Dr. Mendoza Thank you for this consult. We will continue to follow along with you History of Present Illness Chief Complaint: Small bowel obstruction Narrative: Mr Wang is a 77 year old male with PMHx of chronic adrenal insufficiency, prior UTI's in setting of urinary retention, on chronic hydrocortisone, UC s/p colectomy/ileostomy, RA on methotrexate therapy, h/o LLE DVT as well as subdural hematoma and seizure disorder, currently a patient of the [facility], who was brought to [facility] ED yeaterday with complaints of weakness, diarrhea, suprapubic pain. He was hypotensive on arrival with BP's as low as 68/39. He was found to have purulent urine on straight catheterization with 350 cc out and relief of his suprapubic pain. He had a large amount of green liquid ostomy output. He was found to be in KORIN on CKD stage 3 with Cr of 4.45 up from his normal of 1.1-1.3. He was initiated on vancomycin and cipro for his UTI (history of vancomycin sensitive E. Faecium in the urine), stress dose hydrocortisone, aggressive IVF with improvement of his blood pressures. The patient states he started to feel weak 2-3 days ago. This morning, he was so weak and dizzy, he couldn't get up (normally uses a walker). The diarrhea started at the same time. Normally, his ostomy output is formed, but it has been liquid. He admits to having poor appetite. Other than the suprapubic pain which was relieved with straight catheterization, he had not had any abdominal pain until today. We were asked to see the patient for his abdominal pain and CT scan findings of SBO vs ileus. hetells me that he has no pain right now. He complains of crampy abdominal pain when he drinks something or eats something. CT scan reviewed and showes dilated small bowel and a full stomach. he has a parastomal hernia which he has had for years. He denies any pain there. he continues to put out a lot of liquid green stool. I do not see any thickened bowel and there is no fat starnding. Looking at his records he had the same thing happend in march of 2017. he was admitted septic with UTI and a CT scan showing SBO vs ileus. At that time he also had high output from his ostomy. All of his surgeries have been done at [facility] by Dr. Grady. His last surgery was in 2015 when he had an open Cholecystectomy for Gallstone Pancreatitis. Consults Consult date: 07/31/18 Requesting physician: Karen Mendoza Review of Systems Constitutional Denies fever(s), Reports malaise and Reports weakness Cardiovascular Denies chest pain, Denies chest pain at rest, Denies chest pain with activity, Denies irregular heart rhythm, Denies palpitations, Denies dyspnea and Denies dyspnea on exertion Respiratory Denies chest congestion, Denies cough, Denies dyspnea and Denies dyspnea on exertion Gastrointestinal Reports as per HPI Genitourinary Reports system reviewed and no additional complaints, except as docu and Reports as per HPI Neurologic Reports weakness Endocrine Denies palpitations [facility] Medical History Seizure disorder (Chronic) Subdural hematoma (Resolved) Rheumatoid arthritis (Chronic 11/06/15) DEVORAH on CPAP (Chronic 11/06/15) Depression (Chronic 08/14/17) CKD (chronic kidney disease) stage 3, GFR 30-59 ml/min (Chronic 11/06/15) Arthur's disease (Chronic) H/O ulcerative colitis (Chronic) Asthma (Chronic) COPD (chronic obstructive pulmonary disease) (Chronic) Chronic deep vein thrombosis (DVT) (Chronic) Hypertension (Chronic) 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 Sister No problems noted. Brother No problems noted. Brother Diabetes ASCVD (arteriosclerotic cardiovascular disease) Brother No problems noted. Sister Diabetes Sister No problems noted. Other Arthritis Social History Smoking/Tobacco Use Status: Former Tobacco Use Alcohol Intake: never Drug use: Never Substance use type: does not use Do you feel safe at home: Yes Do you feel safe in your relationship?: Yes Exam Const General: cooperative, comfortable and no acute distress Orientation: alert and oriented x3 HENMT Head: normocephalic and atraumatic Eyes Pupils: PERRL Resp Effort & Inspection: normal respiratory effort Auscultation: clear to auscultation bilaterally Cardio Rate: regular rate Rhythm: regular rhythm Heart Sounds: no gallops, murmur and no rubs GI Inspection: scar (multiple well healed scars are noted) and other (ileostomy- bag with liquid, green stool and air) Palpation: soft, no hepatosplenomegaly, hernia (reducible parastomal hernia) and nontender Auscultation: hyperactive bowel sounds Abdomen image: 1. midline incsion 2. old ostomy site 3. cholecystectomy scar 4. Ileostomy Results Last Vital Signs Temp 98.1 F 07/31/18 15:36 Pulse 67 07/31/18 15:36 Resp 18 07/31/18 15:36 BP 118/54 L 07/31/18 15:36 Pulse Ox 98 07/31/18 15:36 Labs : 07/31/18 06:46 07/31/18 06:46 Laboratory Results - last 24 hr 07/30/18 07/30/18 07/30/18 10:31 12:00 12:00 WBC 14.13 H RBC 4.05 L Hgb 12.5 L Hct 38.7 L MCV 95.6 H MCH 30.9 MCHC 32.3 RDW 17.3 H Plt Count 104 L MPV 12.6 H Immature Gran % 0.0 Neutrophils % 60.0 Band Neutrophils % 0.0 Lymphocytes % 7.0 Atypical Lymphs % 0 Monocytes % 30.0 Eosinophils % 1.0 Basophils % 0.0 Metamyelocytes % 0.0 Myelocytes % 0.0 Promyelocytes % 0 Absolute Neutrophils 8.48 H Absolute Lymphocytes 0.99 L Absolute Monocytes 4.24 H Absolute Eosinophils 0.14 Absolute Basophils 0.00 Differential Comment Manual differential Other Cell Type 2 RBC Morphology See below Polychromasia Present Hypochromasia 2+ Poikilocytosis 1+ Anisocytosis 1+ Sodium Potassium Chloride Carbon Dioxide Anion Gap BUN Creatinine Estimated GFR/1.73 m2 Glucose Calcium Magnesium Stool Campylobacter PCR See comments Stl C.difficile Tox PCR Negative Stool Salmonella PCR See comments Stool Shigella PCR See comments C.difficile Tox Source Feces Shiga Toxin (PCR) See comments Path Cons Comment See comment 07/31/18 07/31/18 06:46 06:46 WBC 7.21 D RBC 3.58 L Hgb 10.9 L Hct 33.5 L MCV 93.6 MCH 30.4 MCHC 32.5 RDW 16.8 H Plt Count 105 L MPV 12.4 H Immature Gran % 0.4 Neutrophils % 85.9 Band Neutrophils % Lymphocytes % 4.4 Atypical Lymphs % Monocytes % 9.3 Eosinophils % 0.0 Basophils % 0.0 Metamyelocytes % Myelocytes % Promyelocytes % Absolute Neutrophils 6.19 Absolute Lymphocytes 0.32 L Absolute Monocytes 0.67 Absolute Eosinophils 0.00 Absolute Basophils 0.00 Differential Comment Other Cell Type RBC Morphology Polychromasia Hypochromasia Poikilocytosis Anisocytosis Sodium 132 L Potassium 4.9 Chloride 99 Carbon Dioxide 21.3 Anion Gap 11.7 H BUN 42 H Creatinine 3.34 H D Estimated GFR/1.73 m2 18.11 Glucose 108 H Calcium 8.3 L Magnesium 2.1 Stool Campylobacter PCR Stl C.difficile Tox PCR Stool Salmonella PCR Stool Shigella PCR C.difficile Tox Source Shiga Toxin (PCR) Path Cons Comment
--- NOTE | 2018-07-31 16:34 | PTTR_ITS ---
Date of service: 07/31/18 Time of Service: 15:50 PT Notes Inpatient Physical Therapy Treatment [facility] Date: 07/31/2018 PRECAUTIONS: Fall. Standard. SUBJECTIVE: Patient reports that he did not sleep well last night. He complains of intermittent abdominal pain and he states that he went down for abdominal CT scan pending results. He is agreeable to a second session this afternoon. OBJECTIVE: Patient seen sitting on his chair. PAIN: Intermittent abdominal pain patient describes as moderate. BED MOBILITY/TRANSFERS Rolling L/R: Minimal assist Supine-sit: Minimal assist Sit-supine: Minimal assist Sit-stand: Minimal assist Stand-sit: Minimal assist Bed-Chair: Minimal assist Chair-bed: Minimal assist THEREX: Patient completed seated/reclined level exercises as follows: LAQs , hip flexion, knee flexion, leg raises, unilateraL [id number] x 10 reps as indicated in exercise flow sheet without undue fatigue, significant increase in pain, increase in dyspnea. ASSESSMENT: Patient demonstrates good tolerance to physical therapy session with observed improvement in terms of pain level, activity tolerance, self- efficacy/confidence, and participation level. PLAN: Patient to progress with mobility level, functional performance, and knowledge of HEP to achieve previously established goals. TREATMENT CODE/TIME: 78312 x2 beginning at 15:50 p.m..
[2018-07-31 19:49] VITALS: BP 107/59; PULSE 79; RESP 18; TEMP 36.4; O2SAT 97
[2018-07-31] MEDS: Fluticasone NASAL SPRAY 16 GM BTL NS (22:01)
[2018-07-31 23:35] VITALS: BP 112/67; PULSE 64; RESP 18; TEMP 36.6; O2SAT 99
[2018-08-01] MEDS: Lactated Ringers 1,000 ML 150 ML IV ×3 (01:30→17:39)
[2018-08-01] MEDS: Hydrocortisone SOD SUC. 100 MG VIAL 50 MG IVP ×4 (05:07→23:38)
[2018-08-01 05:18] VITALS: BP 110/62; PULSE 66; RESP 20; TEMP 36.7; O2SAT 95
--- NOTE | 2018-08-01 07:15 | PGE_ITS ---
Date of Service Date of service: 08/01/18 Time of Service: 07:10 Assessment and Plan (1) Ileus: Current visit: Yes Status: Acute Abdominal pain has resolved following being NPO. ? minimal flatus. Ileostomy- Output 1475ml overnight Urine output- 1575ml Continue NPO and IV hydration. AM labs pending Encouraged sitting up in the chair, ambulation and participation with therapy. Subjective Interval history since last seen: I did not have any abdominal pain last night. Denies any nausea or vomiting. Reports ambulating and sitting up in the chair. Exam Const General: cooperative, healthy appearing and comfortable Orientation: alert and oriented x3 Resp Effort & Inspection: normal respiratory effort, no audible wheezes and no cough Auscultation: clear to auscultation bilaterally Cardio Rate: regular rate Rhythm: regular rhythm Heart Sounds: S1 normal, S2 normal and no murmurs GI Inspection: normal to inspection, non-distended, scar and other (Ostomy; green/brown soft stool) Palpation: soft, no guarding and nontender Auscultation: normal bowel sounds Objective Objective Clinical Data: Abnormal lab results 07/30/18 07/31/18 07/31/18 Range/Units 10:31 06:46 06:46 WBC 14.13 H (4.4-10.8) k/cumm RBC 4.05 L 3.58 L (4.50-6.00) m/cumm Hgb 12.5 L 10.9 L (13.5-17.5) g/dL Hct 38.7 L 33.5 L (40.0-50.0) % MCV 95.6 H (80-95) fL RDW 17.3 H 16.8 H (11.8-14.1) % Plt Count 104 L 105 L (130-400) x1000/uL MPV 12.6 H 12.4 H (8.0-11.0) fL Absolute Neutrophils 8.48 H (1.2-6.7) k/cumm Absolute Lymphocytes 0.99 L 0.32 L (1.2-3.4) k/cumm Absolute Monocytes 4.24 H (0.11-0.7) k/cumm Sodium 132 L (136-145) mmol/L Anion Gap 11.7 H (3-11) mmol/L BUN 42 H (7-18) mg/dL Creatinine 3.34 H D (0.70-1.30) mg/dL Glucose 108 H (70-100) mg/dL Calcium 8.3 L (8.5-10.1) mg/dL Vital Signs Temperature 36.7 C 08/01/18 05:18 Temperature Source Oral 08/01/18 05:18 Pulse 66 08/01/18 05:18 Pulse Rhythm Regular 07/31/18 20:56 Pulse 93 H 07/30/18 13:31 Respiratory Rate 20 08/01/18 05:18 Respiratory Effort 07/31/18 20:56 Respiratory Depth Normal 07/31/18 20:56 Respiratory Pattern Normal 07/31/18 20:56 Blood Pressure 110/62 08/01/18 05:18 Blood Pressure Mean 58 07/30/18 13:31 Blood Pressure Position Supine 07/30/18 10:24 Pulse Oximetry 95 08/01/18 05:18 Oxygen Delivery Method Room Air 08/01/18 05:18 Oxygen Flow Rate 0 08/01/18 05:18 Pain Level 0 07/31/18 10:32 Intake & Output 07/31/18 08/01/18 08/01/18 18:59 06:59 18:59 Intake Total 2315 / 4425.000 2110.000 / 4425.000 Output Total 1175 / 3050 1875 / 3050 Balance 1140 / 1375.000 235.000 / 1375.000 Weight 80.1 kg Intake: IV 1835 / 3945.000 2110.000 / 3945.000 Oral 480 / 480 Output: Urine 700 / 1575 875 / 1575 Stool 475 / 1475 1000 / 1475 Other: Urine Color Yellow Yellow Urine Appearance Clear Clear Stool Occult Blood Positive Stool Size Moderate Stool Characteristics Liquid Brown Green Laboratory Results WBC 7.21 k/cumm (4.4-10.8) D 07/31/18 06:46 RBC 3.58 m/cumm (4.50-6.00) L 07/31/18 06:46 Hgb 10.9 g/dL (13.5-17.5) L 07/31/18 06:46 Hct 33.5 % (40.0-50.0) L 07/31/18 06:46 MCV 93.6 fL (80-95) 07/31/18 06:46 MCH 30.4 pg (27.0-33.0) 07/31/18 06:46 MCHC 32.5 g/dL (32.0-36.0) 07/31/18 06:46 RDW 16.8 % (11.8-14.1) H 07/31/18 06:46 Plt Count 105 x1000/uL (130-400) L 07/31/18 06:46 MPV 12.4 fL (8.0-11.0) H 07/31/18 06:46 Immature Gran % 0.4 07/31/18 06:46 Neutrophils % 85.9 07/31/18 06:46 Band Neutrophils % 0.0 % 07/30/18 10:31 Lymphocytes % 4.4 07/31/18 06:46 Atypical Lymphs % 0 07/30/18 10:31 Monocytes % 9.3 07/31/18 06:46 Eosinophils % 0.0 07/31/18 06:46 Basophils % 0.0 07/31/18 06:46 Metamyelocytes % 0.0 % 07/30/18 10:31 Myelocytes % 0.0 % 07/30/18 10:31 Promyelocytes % 0 % 07/30/18 10:31 Absolute Neutrophils 6.19 k/cumm (1.2-6.7) 07/31/18 06:46 Absolute Lymphocytes 0.32 k/cumm (1.2-3.4) L 07/31/18 06:46 Absolute Monocytes 0.67 k/cumm (0.11-0.7) 07/31/18 06:46 Absolute Eosinophils 0.00 k/cumm (0.0-0.7) 07/31/18 06:46 Absolute Basophils 0.00 k/cumm (0.0-0.2) 07/31/18 06:46 Differential Comment Diff reviewed 07/31/18 06:46 Other Cell Type 2 07/30/18 10:31 RBC Morphology Normal 07/31/18 06:46 Polychromasia Present 07/30/18 10:31 Hypochromasia 2+ 07/30/18 10:31 Poikilocytosis 1+ 07/30/18 10:31 Anisocytosis 1+ 07/30/18 10:31 Sodium 132 mmol/L (136-145) L 07/31/18 06:46 Potassium 4.9 mmol/L (3.5-5.1) 07/31/18 06:46 Chloride 99 mmol/L (98-107) 07/31/18 06:46 Carbon Dioxide 21.3 mmol/L (21.0-32.0) 07/31/18 06:46 Anion Gap 11.7 mmol/L (3-11) H 07/31/18 06:46 BUN 42 mg/dL (7-18) H 07/31/18 06:46 Creatinine 3.34 mg/dL (0.70-1.30) H D 07/31/18 06:46 Estimated GFR/1.73 m2 18.11 (mL/min/1.73m2) 07/31/18 06:46 Glucose 108 mg/dL (70-100) H 07/31/18 06:46 Lactate 2.2 mmol/L (0.6-1.4) H* 07/30/18 10:31 Calcium 8.3 mg/dL (8.5-10.1) L 07/31/18 06:46 Magnesium 2.1 mg/dL (1.8-2.4) 07/31/18 06:46 Total Bilirubin 2.0 mg/dL (0.2-1.0) H 07/30/18 10:31 AST 45 U/L (15-37) H 07/30/18 10:31 ALT 31 U/L (12-78) 07/30/18 10:31 Alkaline Phosphatase 87 U/L (46-116) 07/30/18 10:31 Troponin I 0.02 ng/mL (0.00-0.06) 07/30/18 10:31 Total Protein 6.5 g/dL (6.4-8.2) 07/30/18 10:31 Albumin 3.3 g/dL (3.4-5.0) L 07/30/18 10:31 Lipase 180 U/L (73-393) 07/30/18 10:31 Urine Color Dark yellow (Yellow) 07/30/18 12:10 Urine Clarity Cloudy 07/30/18 12:10 Urine pH 5.5 (5-8) 07/30/18 12:10 Ur Specific [place] 1.025 (1.005-1.025) 07/30/18 12:10 Urine Protein >=300 mg/dL (Negative) H 07/30/18 12:10 Urine Ketones Trace mg/dL (Negative) H 07/30/18 12:10 Urine Blood Moderate (Negative) H 07/30/18 12:10 Urine Nitrite Negative (Negative) 07/30/18 12:10 Urine Bilirubin Negative (Negative) 07/30/18 12:10 Urine Urobilinogen 0.2 EU/dL (Up TO 0.2) 07/30/18 12:10 Ur Leukocyte Esterase Small (Negative) H 07/30/18 12:10 Urine RBC Not Applicable 07/30/18 12:10 Urine WBC HPF (0-5) 07/30/18 12:10 Ur Epithelial Cells Not Applicable 07/30/18 12:10 Urine Crystals Not Applicable 07/30/18 12:10 Urine Bacteria Not Applicable 07/30/18 12:10 Urine Mucus Not Applicable 07/30/18 12:10 Ur Culture Indicated? Yes 07/30/18 12:10 Urine Glucose Negative mg/dL (Negative) 07/30/18 12:10 Stool Campylobacter PCR See comments 07/30/18 12:00 Stl C.difficile Tox PCR Negative 07/30/18 12:00 Stool Salmonella PCR See comments 07/30/18 12:00 Stool Shigella PCR See comments 07/30/18 12:00 C.difficile Tox Source Feces 07/30/18 12:00 Shiga Toxin (PCR) See comments 07/30/18 12:00 Path Cons Comment See comment 07/30/18 10:31
[2018-08-01 07:35] LABS: HCT 28.8 % (40.0-50.0); HGB 9.3 g/dL (13.5-17.5); Mean Corp. HGB Concentration 32.3 g/dL (32.0-36.0); Mean Corpuscular Hemoglobin 30.5 pg (27.0-33.0); Mean Corpuscular Volume 94.4 fL (80-95); Mean Platelet Volume 12.3 fL (8.0-11.0); RBC 3.05 m/cumm (4.50-6.00); RBC Distribution Width 16.6 % (11.8-14.1); White Blood Cell Count 4.77 k/cumm (4.4-10.8)
[2018-08-01 07:37] LABS: Anion Gap 10.3 mmol/L (3-11); BUN 32 mg/dL (7-18); CO2 20.7 mmol/L (21.0-32.0); CREATININE 1.93 mg/dL (0.70-1.30); Calcium 7.7 mg/dL (8.5-10.1); Chloride 104 mmol/L (98-107); Estimated GFR 34.11 (mL/min/1.73m2); Glucose 98 mg/dL (70-100); Magnesium 2.1 mg/dL (1.8-2.4); Sodium 135 mmol/L (136-145)
[2018-08-01 07:47] VITALS: BP 118/62; PULSE 61; RESP 16; TEMP 36.4; O2SAT 97
[2018-08-01 07:58] LABS: Absolute Lymphocyte Count 0.24 k/cumm (1.2-3.4); Absolute Monocyte Count 0.43 k/cumm (0.11-0.7); Anisocytosis 2+; Atypical Lymphocytes % 1; Diff Comment Manual Differential; Platelet Count 94 x1000/uL (130-400); Polychromasia Present
[2018-08-01] MEDS: Budesonide/Formoterol 160/4.5 6 GM 60 PUFF INH IH ×2 (08:04→19:48)
[2018-08-01] MEDS: Lactobacillus Acidophilus CAP 1 CAP PO ×3 (09:23→19:48)
[2018-08-01] MEDS: Montelukast 10 MG TAB PO (09:24)
[2018-08-01] MEDS: Ondansetron 4 MG TAB PO (09:24)
[2018-08-01] MEDS: Folic Acid 1 MG TAB PO (09:24)
[2018-08-01] MEDS: Citalopram 20 MG TAB PO (09:24)
[2018-08-01] MEDS: Fludrocortisone 0.1 MG TAB 0.15 MG PO (09:24)
[2018-08-01] MEDS: Lacosamide 100 MG TAB PO ×2 (09:25→19:48)
[2018-08-01] MEDS: Normal Saline Flush 10 ML SYR IVP ×2 (10:05→16:15)
[2018-08-01] MEDS: Pantoprazole 40 MG VIAL IVP (10:05)
--- NOTE | 2018-08-01 10:54 | OT.INTREAT ---
Date of service: 08/01/18 Time of Service: 09:35 Occupational Therapy Notes Occupational Therapy Inpatient Treatment Note Date: 08/01/18 PRECAUTIONS: Fall, Standard SUBJECTIVE: Pt was sitting in bed, he was agreeable to OT session and states that he would like to brush his teeth. OBJECTIVE: PAIN:no c/o pain. FUNCTIONAL MOBILITY Sit-stand: SBA, FWW Stand-sit: SBA, FWW BATHING: Performed prior to OT with nursing. DRESSING: Lower Extremity: Sitting on side of bed (I) donning (B) socks GROOMING: Sitting in chair with max (A) set up (I) ASSESSMENT/PLAN: Pt is making functional gains with his ADL routines. He does present with decreased functional activity tolerance. He is tolerating skilled OT services well. TREATMENT CODES/TIME: 13971, 20 minutes (09:35) Hayley Chandler OTR/[facility]
--- NOTE | 2018-08-01 10:59 | OTTR_ITS ---
Date of service: 08/01/18 Time of Service: 09:35 Occupational Therapy Notes Occupational Therapy Inpatient Treatment Note Date: 08/01/18 PRECAUTIONS: Fall, Standard SUBJECTIVE: Pt was sitting in bed, he was agreeable to OT session and states that he would like to brush his teeth. OBJECTIVE: PAIN:no c/o pain. FUNCTIONAL MOBILITY Sit-stand: SBA, FWW Stand-sit: SBA, FWW BATHING: Performed prior to OT with nursing. DRESSING: Lower Extremity: Sitting on side of bed (I) donning (B) socks GROOMING: Sitting in chair with max (A) set up (I) ASSESSMENT/PLAN: Pt is making functional gains with his ADL routines. He does present with decreased functional activity tolerance. He is tolerating skilled OT services well. TREATMENT CODES/TIME: 90002, 20 minutes (09:35) Hayley Chandler OTR/[facility]
[2018-08-01 12:11] VITALS: BP 110/57; PULSE 65; RESP 18; TEMP 36.5; O2SAT 98
--- NOTE | 2018-08-01 12:31 | PT.INTREAT ---
Date of service: 08/01/18 Time of Service: 12:31 PT Notes Inpatient Physical Therapy Treatment Note [facility] Date: 08/01/18 PRECAUTIONS: Fall, Contact SUBJECTIVE: Liang is agreeable to participating in PT. He states that he is experiencing intermittent nausea today, however, feels stronger compared to when he was admitted. OBJECTIVE: PAIN: No c/o pain BED MOBILITY/TRANSFERS Supine-sit: SBA Sit-supine: SBA Sit-stand: SBA Stand-sit: SBA GAIT Assistive Device: FWW Weight bearing: Full Assist: SBA Distance: 100' + 40' in a.m.; 200' in p.m. Deviation: Slow mariella THEREX: Patient completed a strengthening program, in a supine position in a.m. and in a seated position in p.m., as per flow sheet. He required several rests between exercises, due to increased fatigue. ASSESSMENT: Patient tolerated session with some c/o increased fatigue. Patient was able to tolerate a progression in gait distance with FWW support and SBA. Patient would benefit from continued strengthening and gait and transfer training for improved mobility and activity tolerance. PLAN: Continue with PT's POC TREATMENT CODE/TIME: Session 1: 30 minutes; [id number], 37643 Session 2: 30 minutes; 92282, 25288
--- NOTE | 2018-08-01 12:38 | PTTR_ITS ---
Date of service: 08/01/18 Time of Service: 12:31 PT Notes Inpatient Physical Therapy Treatment Note [facility] Date: 08/01/18 PRECAUTIONS: Fall, Contact SUBJECTIVE: Liang is agreeable to participating in PT. He states that he is experiencing intermittent nausea today, however, feels stronger compared to when he was admitted. OBJECTIVE: PAIN: No c/o pain BED MOBILITY/TRANSFERS Supine-sit: SBA Sit-supine: SBA Sit-stand: SBA Stand-sit: SBA GAIT Assistive Device: FWW Weight bearing: Full Assist: SBA Distance: 100' + 40' in a.m.; 200' in p.m. Deviation: Slow mariella THEREX: Patient completed a strengthening program, in a supine position in a.m. and in a seated position in p.m., as per flow sheet. He required several rests between exercises, due to increased fatigue. ASSESSMENT: Patient tolerated session with some c/o increased fatigue. Patient was able to tolerate a progression in gait distance with FWW support and SBA. Patient would benefit from continued strengthening and gait and transfer training for improved mobility and activity tolerance. PLAN: Continue with PT's POC TREATMENT CODE/TIME: Session 1: 30 minutes; 60290, 68976 Session 2: 30 minutes; 24750, 90370
--- NOTE | 2018-08-01 13:00 | PCPN_ITS ---
Date of service: 08/01/18 Time of Service: 12:58 Assessment and Plan (1) Acute adrenal insufficiency: Current visit: Yes Status: Acute (2) Acute kidney injury superimposed on chronic kidney disease: Current visit: Yes Status: Acute (3) Diarrhea: Current visit: Yes Status: Acute Per Vickie his diarrhea is improving. He is feeling much better. His kidney function is returning to his baseline. His stool cultures have come back negative to date. I have spoken with his D DAHIANAA. She was adamant that she would like her uncle to be kept comfortable. She is spoken to Vickie's brother and other family members. They do not want aggressive care. The support Vickie if he should choose to go comfort measures. I will speak to Vickie tomorrow about their choices. Dehydration improving with IV fluids He is getting physical therapy He will not get his methotrexate tomorrow Hopefully it back to the [facility] soon. His Exam. This document was created by [employer] recognition and may contain grammatical and translation errors. Subjective Patient reports: feels better and pain is less; denies fever Interval history since last seen: Vickie states that he is feeling better. He is able to sit up in bed and not be dizzy. He did move with physical therapy yesterday. He hopes to walk today. He misses his Wants to get back to the [facility] as soon as possible. Yesterday he was complaining about abdominal pain. He did have a CT scan done. Exam Narrative Exam Narrative: Vickie is lying in bed. His eyes are much more clear. His heart is regular. Lungs much better air movement. Abdomen still mildly tender. His colostomy bag was just changed. There is a little gas and some liquid but not much. Does not have any edema. Objective Objective Clinical Data: Abnormal lab results 07/30/18 08/01/18 08/01/18 Range/Units 10:31 07:00 07:00 WBC 14.13 H (4.4-10.8) k/cumm RBC 4.05 L 3.05 L (4.50-6.00) m/cumm Hgb 12.5 L 9.3 L (13.5-17.5) g/dL Hct 38.7 L 28.8 L (40.0-50.0) % MCV 95.6 H (80-95) fL RDW 17.3 H 16.6 H (11.8-14.1) % Plt Count 104 L 94 L (130-400) x1000/uL MPV 12.6 H 12.3 H (8.0-11.0) fL Absolute Neutrophils 8.48 H (1.2-6.7) k/cumm Absolute Lymphocytes 0.99 L 0.24 L (1.2-3.4) k/cumm Absolute Monocytes 4.24 H (0.11-0.7) k/cumm Sodium 135 L (136-145) mmol/L Carbon Dioxide 20.7 L (21.0-32.0) mmol/L BUN 32 H D (7-18) mg/dL Creatinine 1.93 H D (0.70-1.30) mg/dL Calcium 7.7 L (8.5-10.1) mg/dL Vital Signs Temperature 97.7 F 08/01/18 12:11 Temperature Source Tympanic 08/01/18 12:11 Pulse 65 08/01/18 12:11 Pulse Rhythm Regular 08/01/18 07:18 Pulse 93 H 07/30/18 13:31 Respiratory Rate 18 08/01/18 12:11 Respiratory Effort Non-Labored 08/01/18 07:18 Respiratory Depth Normal 08/01/18 07:18 Respiratory Pattern Normal 08/01/18 07:18 Blood Pressure 110/57 L 08/01/18 12:11 Blood Pressure Mean 58 07/30/18 13:31 Blood Pressure Position Supine 07/30/18 10:24 Pulse Oximetry 98 08/01/18 12:11 Oxygen Delivery Method Room Air 08/01/18 12:11 Oxygen Flow Rate 0 08/01/18 12:11 Pain Level 0 07/31/18 10:32 Intake & Output 07/31/18 08/01/18 08/01/18 23:59 11:59 23:59 Intake Total 1175 / 3915 2210.000 / 2210.000 Output Total 1575 / 3250 1050 / 1675 625 / 1675 Balance -400 / 665 1160.000 / 535.000 -625 / 535.000 Weight 176 lb 9.444 oz Intake: IV 935 / 3185 2210.000 / 2210.000 Oral 240 / 730 Output: Urine 825 / 1725 400 / 850 450 / 850 Stool 750 / 1525 650 / 825 175 / 825 Other: Urine Color Straw Yellow Dark Mayi Urine Appearance Clear Clear Cloudy Sediment Stool Occult Blood Positive Positive Stool Size Moderate Stool Characteristics Liquid Liquid Liquid Brown Brown Green Green Laboratory Results WBC 4.77 k/cumm (4.4-10.8) D 08/01/18 07:00 RBC 3.05 m/cumm (4.50-6.00) L 08/01/18 07:00 Hgb 9.3 g/dL (13.5-17.5) L 08/01/18 07:00 Hct 28.8 % (40.0-50.0) L 08/01/18 07:00 MCV 94.4 fL (80-95) 08/01/18 07:00 MCH 30.5 pg (27.0-33.0) 08/01/18 07:00 MCHC 32.3 g/dL (32.0-36.0) 08/01/18 07:00 RDW 16.6 % (11.8-14.1) H 08/01/18 07:00 Plt Count 94 x1000/uL (130-400) L 08/01/18 07:00 MPV 12.3 fL (8.0-11.0) H 08/01/18 07:00 Immature Gran % 0.0 08/01/18 07:00 Neutrophils % 86.0 08/01/18 07:00 Band Neutrophils % 0.0 % 07/30/18 10:31 Lymphocytes % 4.0 08/01/18 07:00 Atypical Lymphs % 1 08/01/18 07:00 Monocytes % 9.0 08/01/18 07:00 Eosinophils % 0.0 08/01/18 07:00 Basophils % 0.0 08/01/18 07:00 Metamyelocytes % 0.0 % 07/30/18 10:31 Myelocytes % 0.0 % 07/30/18 10:31 Promyelocytes % 0 % 07/30/18 10:31 Absolute Neutrophils 4.10 k/cumm (1.2-6.7) 08/01/18 07:00 Absolute Lymphocytes 0.24 k/cumm (1.2-3.4) L 08/01/18 07:00 Absolute Monocytes 0.43 k/cumm (0.11-0.7) 08/01/18 07:00 Absolute Eosinophils 0.00 k/cumm (0.0-0.7) 08/01/18 07:00 Absolute Basophils 0.00 k/cumm (0.0-0.2) 08/01/18 07:00 Differential Comment Manual differential 08/01/18 07:00 Other Cell Type 2 07/30/18 10:31 RBC Morphology See below 08/01/18 07:00 Polychromasia Present 08/01/18 07:00 Hypochromasia 2+ 07/30/18 10:31 Poikilocytosis 1+ 07/30/18 10:31 Anisocytosis 2+ 08/01/18 07:00 Sodium 135 mmol/L (136-145) L 08/01/18 07:00 Potassium 4.0 mmol/L (3.5-5.1) 08/01/18 07:00 Chloride 104 mmol/L (98-107) 08/01/18 07:00 Carbon Dioxide 20.7 mmol/L (21.0-32.0) L 08/01/18 07:00 Anion Gap 10.3 mmol/L (3-11) 08/01/18 07:00 BUN 32 mg/dL (7-18) H D 08/01/18 07:00 Creatinine 1.93 mg/dL (0.70-1.30) H D 08/01/18 07:00 Estimated GFR/1.73 m2 34.11 (mL/min/1.73m2) 08/01/18 07:00 Glucose 98 mg/dL (70-100) 08/01/18 07:00 Lactate 2.2 mmol/L (0.6-1.4) H* 07/30/18 10:31 Calcium 7.7 mg/dL (8.5-10.1) L 08/01/18 07:00 Magnesium 2.1 mg/dL (1.8-2.4) 08/01/18 07:00 Total Bilirubin 2.0 mg/dL (0.2-1.0) H 07/30/18 10:31 AST 45 U/L (15-37) H 07/30/18 10:31 ALT 31 U/L (12-78) 07/30/18 10:31 Alkaline Phosphatase 87 U/L (46-116) 07/30/18 10:31 Troponin I 0.02 ng/mL (0.00-0.06) 07/30/18 10:31 Total Protein 6.5 g/dL (6.4-8.2) 07/30/18 10:31 Albumin 3.3 g/dL (3.4-5.0) L 07/30/18 10:31 Lipase 180 U/L (73-393) 07/30/18 10:31 Urine Color Dark yellow (Yellow) 07/30/18 12:10 Urine Clarity Cloudy 07/30/18 12:10 Urine pH 5.5 (5-8) 07/30/18 12:10 Ur Specific [place] 1.025 (1.005-1.025) 07/30/18 12:10 Urine Protein >=300 mg/dL (Negative) H 07/30/18 12:10 Urine Ketones Trace mg/dL (Negative) H 07/30/18 12:10 Urine Blood Moderate (Negative) H 07/30/18 12:10 Urine Nitrite Negative (Negative) 07/30/18 12:10 Urine Bilirubin Negative (Negative) 07/30/18 12:10 Urine Urobilinogen 0.2 EU/dL (Up TO 0.2) 07/30/18 12:10 Ur Leukocyte Esterase Small (Negative) H 07/30/18 12:10 Urine RBC Not Applicable 07/30/18 12:10 Urine WBC HPF (0-5) 07/30/18 12:10 Ur Epithelial Cells Not Applicable 07/30/18 12:10 Urine Crystals Not Applicable 07/30/18 12:10 Urine Bacteria Not Applicable 07/30/18 12:10 Urine Mucus Not Applicable 07/30/18 12:10 Ur Culture Indicated? Yes 07/30/18 12:10 Urine Glucose Negative mg/dL (Negative) 07/30/18 12:10 Stool Campylobacter PCR See comments 07/30/18 12:00 Stl C.difficile Tox PCR Negative 07/30/18 12:00 Stool Salmonella PCR See comments 07/30/18 12:00 Stool Shigella PCR See comments 07/30/18 12:00 C.difficile Tox Source Feces 07/30/18 12:00 Shiga Toxin (PCR) See comments 07/30/18 12:00 Path Cons Comment See comment 07/30/18 10:31 Patient Name: VICKIE CALVERT #: [id number]: MS Ordering Provider: Karen Mendoza M.D. : ADM IN Primary Care Provider: Sheeba Morelos NPDate of Exam: 07/31/18Sex: M : 3Age: 77 Exam(s) a CT:CT abdomen & pelvis wo SYMPTOMS/DIAGNOSIS: DIARRHEA, ABDOMINAL PAIN, ACUTE KIDNEY INJURY, SEPTIC SHOCK, ? COLITIS, UROPATHY CT SCAN OF THE ABDOMEN AND PELVIS: Noncontrast CT scan of the abdomen and pelvis was performed without intravenous contrast material. Oral contrast was administered. Atelectatic changes are seen in the lung bases. Lack of IV contrast does limit evaluation of the abdominal and pelvic organs. The unenhanced liver, spleen and pancreas are unremarkable. The gallbladder appears absent. There is no biliary ductal dilatation. The left kidney shows no evidence of nephrolithiasis or hydronephrosis. 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 There is a nonobstructing 1 cm stone in the superior pole of the right kidney. This was present on prior examination. There are right renal cysts, which appear stable. The urinary bladder is intact. There is a Howe catheter in place. The patient is status post colectomy. There is an ostomy again seen in the left lower quadrant. There are dilated loops of small bowel with fluid levels suspicious for bowel obstruction. The transition appears to lie in the right lower quadrant. Ileus cannot be excluded. There is atherosclerosis of the abdominal aorta, but no aneurysmal dilatation. No significant abdominal or pelvic adenopathy, ascites or pneumoperitoneum is present. Moderately severe degenerative changes are present throughout the spine. There are stable compression deformities of T12, L1 and L2. IMPRESSION: Dilated loops of small bowel as described with air-fluid levels. The findings raise the question of a bowel obstruction. There does appear to be a transition in the right lower quadrant. Ileus cannot be excluded. [id number]: Total DLP = 0.00 mGy-cm
[2018-08-01] MEDS: CIPROFLOXACIN 200 MG/100 ML BAG 100 MG IVPB (13:39)
--- NOTE | 2018-08-01 14:59 | PDOC.CMPRO ---
- If Service Date Differs Date of service: 08/01/18 Time of Service: 14:59 Care Management Progress Note S/O: Liang is lying in bed when this freelance copywriter visits this morning, he is pleasant and receptive to discussion. Liang reports that he is feeling better today, and is hopeful to work with physical therapy. Dr. Best met with Liang this morning, and will continue to offer him support throughout his hospitalization. A: 77 y/o male admitted 07/30/18 for Septic Shock, Ileus P: Liang will return to [facility] when medically cleared. He will transport via [facility] when ready.
--- NOTE | 2018-08-01 16:11 | W.PM.PROGNOT ---
Date of Service Date of service: 08/01/18 Time of Service: 16:12 Assessment and Plan (1) Ileus: Current visit: Yes Status: Acute NPO - Dr Sibley will see the patient shortly; defer diet to general surgeyr. Continue IVF, steroids, treat UTI. Heme positive stools could be due to inflammation in setting of ileus. H/H drop is expected with aggressive IV hydration. There is no evidence of aurea red blood. (2) Septic shock: Current visit: Yes Status: Resolved Possibly multifactorial, but at a minimum due to UTI present on admission with history of vancomycin sensitive E. faecium. I do not trust the results of the urine C&S (yeast) as there were several verbal reports of the purulent urine that was collected from this patient on insertion of the blackmon by ER nursing. No evidence of GI tract infection. Continue cipro (day 3). D/c vancomycin. Continue aggressive IVF. Taper stress dose steroids. (3) UTI (urinary tract infection): Current visit: Yes Status: Acute Present on admission; Culture likely a false negative. Doubt yeast UTI. In setting of chronic urinary retention, also noted on presentation. Continue blackmon, abx as above (4) Acute adrenal insufficiency: Current visit: Yes Status: Acute start to taper stress dose steroids. (5) Acute kidney injury superimposed on chronic kidney disease: Current visit: Yes Status: Acute Improved, combined obstructive and prerenal. Continue IVF. Continue to monitor kidney function. (6) Dehydration: Current visit: Yes Status: Acute Due to Diarrhea and UTI. Continue IVF. (7) Urinary retention: Current visit: Yes Status: Acute s/p prostatectomy; still requiring a blackmon catheter. Patient has had an adverse reaction to flomax. Continue blackmon catheter. (8) Diarrhea: Current visit: Yes Status: Acute Likely due to an ileus. Stool studies are negative for any infection. NPO. Defer advancement of diet to general surgery. (9) Seizure disorder: Current visit: No Status: Chronic Continue vimpat (10) Subdural hematoma: Current visit: No Status: Resolved Per patient, a long time ago. Heparin d/c'ed due to hem + stools. (11) Weakness: Current visit: No Status: Acute Likely due to sepsis and adrenal insufficiency. PT/OT consults. (12) Rheumatoid arthritis: Current visit: No Status: Chronic Hold methotrexate (13) DEVORAH on CPAP: Current visit: No Status: Chronic Provide CPAP at night (14) Benign prostatic hypertrophy: Current visit: No Status: Chronic Read re urinary retention above (15) Discharge planning issues: Current visit: No Status: Acute DNR/DNI. The patient is not firmly against ICU, per my conversation with him. Prognosis guarded. (16) DVT prophylaxis: Current visit: Yes Status: Acute Heparin d/c'ed due to Hem + stools. SCD's + TEDs. Subjective Interval history since last seen: Describes 2 short episodes of abdominal pain today. Ostomy output is slowing down. Denies dizziness, chest pain, shortness of breath, nausea, vomiting. Reports a dry nonproductive cough. Exam Narrative Exam Narrative: General: Very pleasant elderly male, sitting up in a chair, A&Ox3 HEENT: EOMI, MMM Cardiovascular: RRR, quiet ANN Lungs: Diminished breath sounds B; no rhonchi or rales Gastrointestinal: LLQ ileostomy with chunkier output than yesterday Genitourinary: has a blackmon Extremities: no e/c/c BLE's, warm, +1 pedal pulses B Objective Objective Clinical Data: Abnormal lab results 07/30/18 08/01/18 08/01/18 Range/Units 10:31 07:00 07:00 WBC 14.13 H (4.4-10.8) k/cumm RBC 4.05 L 3.05 L (4.50-6.00) m/cumm Hgb 12.5 L 9.3 L (13.5-17.5) g/dL Hct 38.7 L 28.8 L (40.0-50.0) % MCV 95.6 H (80-95) fL RDW 17.3 H 16.6 H (11.8-14.1) % Plt Count 104 L 94 L (130-400) x1000/uL MPV 12.6 H 12.3 H (8.0-11.0) fL Absolute Neutrophils 8.48 H (1.2-6.7) k/cumm Absolute Lymphocytes 0.99 L 0.24 L (1.2-3.4) k/cumm Absolute Monocytes 4.24 H (0.11-0.7) k/cumm Sodium 135 L (136-145) mmol/L Carbon Dioxide 20.7 L (21.0-32.0) mmol/L BUN 32 H D (7-18) mg/dL Creatinine 1.93 H D (0.70-1.30) mg/dL Calcium 7.7 L (8.5-10.1) mg/dL Vital Signs Temperature 36.5 C 08/01/18 12:11 Temperature Source Tympanic 08/01/18 12:11 Pulse 65 08/01/18 12:11 Pulse Rhythm Regular 08/01/18 16:04 Pulse 93 H 07/30/18 13:31 Respiratory Rate 18 08/01/18 12:11 Respiratory Effort Non-Labored 08/01/18 16:04 Respiratory Depth Normal 08/01/18 16:04 Respiratory Pattern Normal 08/01/18 16:04 Blood Pressure 110/57 L 08/01/18 12:11 Blood Pressure Mean 58 07/30/18 13:31 Blood Pressure Position Supine 07/30/18 10:24 Pulse Oximetry 98 08/01/18 12:11 Oxygen Delivery Method Room Air 08/01/18 12:11 Oxygen Flow Rate 0 08/01/18 12:11 Pain Level 0 07/31/18 10:32 Intake & Output 07/31/18 08/01/18 08/01/18 23:59 11:59 23:59 Intake Total 1175 / 3915 2210.000 / 2210.000 Output Total 1575 / 3250 1050 / 1675 625 / 1675 Balance -400 / 665 1160.000 / 535.000 -625 / 535.000 Weight 80.1 kg Intake: IV 935 / 3185 2210.000 / 2210.000 Oral 240 / 730 Output: Urine 825 / 1725 400 / 850 450 / 850 Stool 750 / 1525 650 / 825 175 / 825 Other: Urine Color Straw Yellow Dark Mayi Urine Appearance Clear Clear Cloudy Sediment Stool Occult Blood Positive Positive Stool Size Moderate Stool Characteristics Liquid Liquid Liquid Brown Brown Green Green Laboratory Results WBC 4.77 k/cumm (4.4-10.8) D 08/01/18 07:00 RBC 3.05 m/cumm (4.50-6.00) L 08/01/18 07:00 Hgb 9.3 g/dL (13.5-17.5) L 08/01/18 07:00 Hct 28.8 % (40.0-50.0) L 08/01/18 07:00 MCV 94.4 fL (80-95) 08/01/18 07:00 MCH 30.5 pg (27.0-33.0) 08/01/18 07:00 MCHC 32.3 g/dL (32.0-36.0) 08/01/18 07:00 RDW 16.6 % (11.8-14.1) H 08/01/18 07:00 Plt Count 94 x1000/uL (130-400) L 08/01/18 07:00 MPV 12.3 fL (8.0-11.0) H 08/01/18 07:00 Immature Gran % 0.0 08/01/18 07:00 Neutrophils % 86.0 08/01/18 07:00 Band Neutrophils % 0.0 % 07/30/18 10:31 Lymphocytes % 4.0 08/01/18 07:00 Atypical Lymphs % 1 08/01/18 07:00 Monocytes % 9.0 08/01/18 07:00 Eosinophils % 0.0 08/01/18 07:00 Basophils % 0.0 08/01/18 07:00 Metamyelocytes % 0.0 % 07/30/18 10:31 Myelocytes % 0.0 % 07/30/18 10:31 Promyelocytes % 0 % 07/30/18 10:31 Absolute Neutrophils 4.10 k/cumm (1.2-6.7) 08/01/18 07:00 Absolute Lymphocytes 0.24 k/cumm (1.2-3.4) L 08/01/18 07:00 Absolute Monocytes 0.43 k/cumm (0.11-0.7) 08/01/18 07:00 Absolute Eosinophils 0.00 k/cumm (0.0-0.7) 08/01/18 07:00 Absolute Basophils 0.00 k/cumm (0.0-0.2) 08/01/18 07:00 Differential Comment Manual differential 08/01/18 07:00 Other Cell Type 2 07/30/18 10:31 RBC Morphology See below 08/01/18 07:00 Polychromasia Present 08/01/18 07:00 Hypochromasia 2+ 07/30/18 10:31 Poikilocytosis 1+ 07/30/18 10:31 Anisocytosis 2+ 08/01/18 07:00 Sodium 135 mmol/L (136-145) L 08/01/18 07:00 Potassium 4.0 mmol/L (3.5-5.1) 08/01/18 07:00 Chloride 104 mmol/L (98-107) 08/01/18 07:00 Carbon Dioxide 20.7 mmol/L (21.0-32.0) L 08/01/18 07:00 Anion Gap 10.3 mmol/L (3-11) 08/01/18 07:00 BUN 32 mg/dL (7-18) H D 08/01/18 07:00 Creatinine 1.93 mg/dL (0.70-1.30) H D 08/01/18 07:00 Estimated GFR/1.73 m2 34.11 (mL/min/1.73m2) 08/01/18 07:00 Glucose 98 mg/dL (70-100) 08/01/18 07:00 Lactate 2.2 mmol/L (0.6-1.4) H* 07/30/18 10:31 Calcium 7.7 mg/dL (8.5-10.1) L 08/01/18 07:00 Magnesium 2.1 mg/dL (1.8-2.4) 08/01/18 07:00 Total Bilirubin 2.0 mg/dL (0.2-1.0) H 07/30/18 10:31 AST 45 U/L (15-37) H 07/30/18 10:31 ALT 31 U/L (12-78) 07/30/18 10:31 Alkaline Phosphatase 87 U/L (46-116) 07/30/18 10:31 Troponin I 0.02 ng/mL (0.00-0.06) 07/30/18 10:31 Total Protein 6.5 g/dL (6.4-8.2) 07/30/18 10:31 Albumin 3.3 g/dL (3.4-5.0) L 07/30/18 10:31 Lipase 180 U/L (73-393) 07/30/18 10:31 Urine Color Dark yellow (Yellow) 07/30/18 12:10 Urine Clarity Cloudy 07/30/18 12:10 Urine pH 5.5 (5-8) 07/30/18 12:10 Ur Specific [place] 1.025 (1.005-1.025) 07/30/18 12:10 Urine Protein >=300 mg/dL (Negative) H 07/30/18 12:10 Urine Ketones Trace mg/dL (Negative) H 07/30/18 12:10 Urine Blood Moderate (Negative) H 07/30/18 12:10 Urine Nitrite Negative (Negative) 07/30/18 12:10 Urine Bilirubin Negative (Negative) 07/30/18 12:10 Urine Urobilinogen 0.2 EU/dL (Up TO 0.2) 07/30/18 12:10 Ur Leukocyte Esterase Small (Negative) H 07/30/18 12:10 Urine RBC Not Applicable 07/30/18 12:10 Urine WBC HPF (0-5) 07/30/18 12:10 Ur Epithelial Cells Not Applicable 07/30/18 12:10 Urine Crystals Not Applicable 07/30/18 12:10 Urine Bacteria Not Applicable 07/30/18 12:10 Urine Mucus Not Applicable 07/30/18 12:10 Ur Culture Indicated? Yes 07/30/18 12:10 Urine Glucose Negative mg/dL (Negative) 07/30/18 12:10 Stool Source (see note) 07/31/18 03:40 Stool Collect Duration Random h 07/31/18 03:40 Stool Weight 36 g 07/31/18 03:40 Stool Percent Fat <15 % fat (< 20) 07/31/18 03:40 Stool Total Fats Not Applicable 07/31/18 03:40 Stool Campylobacter PCR See comments 07/30/18 12:00 Stl C.difficile Tox PCR Negative 07/30/18 12:00 Stool Salmonella PCR See comments 07/30/18 12:00 Stool Shigella PCR See comments 07/30/18 12:00 C.difficile Tox Source Feces 07/30/18 12:00 Cryptosporidium/Giardia (see note) 07/31/18 03:40 Shiga Toxin (PCR) See comments 07/30/18 12:00 Parasite Rprt Status (see note) 07/31/18 03:40 Path Cons Comment See comment 07/30/18 10:31
[2018-08-01 16:16] VITALS: BP 125/66; PULSE 57; RESP 18; TEMP 35.5; O2SAT 99
--- NOTE | 2018-08-01 16:56 | W.PM.PROGNOT ---
Date of Service Date of service: 08/01/18 Time of Service: 16:56 Assessment and Plan (1) Ileus: Current visit: Yes Status: Acute A\\ Doing well today. Feeling hungry. Normal BS. NON-tender abdomen P\\ Advance diet to clear liquids. If tolerates that can advance to soft diet, low fiber tomorrow. Subjective Interval history since last seen: Mr. Wang is doing well. Had just 2 twinges of pain that didn't last very long. He feels hungry. ostomy is still puting out pretty liquid stool although maybe has a little bit of solid material in it. he has had no N/V. Exam GI Palpation: soft and nontender Auscultation: normal bowel sounds Other: Ostomy bag with liquid and maybe a few more solid pieces. Air in the bag as well. Objective Objective Clinical Data: Abnormal lab results 08/01/18 08/01/18 Range/Units 07:00 07:00 RBC 3.05 L (4.50-6.00) m/cumm Hgb 9.3 L (13.5-17.5) g/dL Hct 28.8 L (40.0-50.0) % RDW 16.6 H (11.8-14.1) % Plt Count 94 L (130-400) x1000/uL MPV 12.3 H (8.0-11.0) fL Absolute Lymphocytes 0.24 L (1.2-3.4) k/cumm Sodium 135 L (136-145) mmol/L Carbon Dioxide 20.7 L (21.0-32.0) mmol/L BUN 32 H D (7-18) mg/dL Creatinine 1.93 H D (0.70-1.30) mg/dL Calcium 7.7 L (8.5-10.1) mg/dL Vital Signs Temperature 95.9 F L 08/01/18 16:16 Temperature Source Tympanic 08/01/18 16:16 Pulse 57 L 08/01/18 16:16 Pulse Rhythm Regular 08/01/18 16:04 Pulse 93 H 07/30/18 13:31 Respiratory Rate 18 08/01/18 16:16 Respiratory Effort Non-Labored 08/01/18 16:04 Respiratory Depth Normal 08/01/18 16:04 Respiratory Pattern Normal 08/01/18 16:04 Blood Pressure 125/66 08/01/18 16:16 Blood Pressure Mean 58 07/30/18 13:31 Blood Pressure Position Supine 07/30/18 10:24 Pulse Oximetry 99 08/01/18 16:16 Oxygen Delivery Method Room Air 08/01/18 16:16 Oxygen Flow Rate 0 08/01/18 16:16 Pain Level 0 07/31/18 10:32 Intake & Output 07/31/18 08/01/18 08/01/18 23:59 11:59 23:59 Intake Total 1175 / 3915 2210.000 / 2210.000 Output Total 1575 / 3250 1050 / 1675 625 / 1675 Balance -400 / 665 1160.000 / 535.000 -625 / 535.000 Weight 176 lb 9.444 oz Intake: IV 935 / 3185 2210.000 / 2210.000 Oral 240 / 730 Output: Urine 825 / 1725 400 / 850 450 / 850 Stool 750 / 1525 650 / 825 175 / 825 Other: Urine Color Straw Yellow Dark Mayi Urine Appearance Clear Clear Cloudy Sediment Stool Occult Blood Positive Positive Stool Size Moderate Stool Characteristics Liquid Liquid Liquid Brown Brown Green Green Laboratory Results WBC 4.77 k/cumm (4.4-10.8) D 08/01/18 07:00 RBC 3.05 m/cumm (4.50-6.00) L 08/01/18 07:00 Hgb 9.3 g/dL (13.5-17.5) L 08/01/18 07:00 Hct 28.8 % (40.0-50.0) L 08/01/18 07:00 MCV 94.4 fL (80-95) 08/01/18 07:00 MCH 30.5 pg (27.0-33.0) 08/01/18 07:00 MCHC 32.3 g/dL (32.0-36.0) 08/01/18 07:00 RDW 16.6 % (11.8-14.1) H 08/01/18 07:00 Plt Count 94 x1000/uL (130-400) L 08/01/18 07:00 MPV 12.3 fL (8.0-11.0) H 08/01/18 07:00 Immature Gran % 0.0 08/01/18 07:00 Neutrophils % 86.0 08/01/18 07:00 Band Neutrophils % 0.0 % 07/30/18 10:31 Lymphocytes % 4.0 08/01/18 07:00 Atypical Lymphs % 1 08/01/18 07:00 Monocytes % 9.0 08/01/18 07:00 Eosinophils % 0.0 08/01/18 07:00 Basophils % 0.0 08/01/18 07:00 Metamyelocytes % 0.0 % 07/30/18 10:31 Myelocytes % 0.0 % 07/30/18 10:31 Promyelocytes % 0 % 07/30/18 10:31 Absolute Neutrophils 4.10 k/cumm (1.2-6.7) 08/01/18 07:00 Absolute Lymphocytes 0.24 k/cumm (1.2-3.4) L 08/01/18 07:00 Absolute Monocytes 0.43 k/cumm (0.11-0.7) 08/01/18 07:00 Absolute Eosinophils 0.00 k/cumm (0.0-0.7) 08/01/18 07:00 Absolute Basophils 0.00 k/cumm (0.0-0.2) 08/01/18 07:00 Differential Comment Manual differential 08/01/18 07:00 Other Cell Type 2 07/30/18 10:31 RBC Morphology See below 08/01/18 07:00 Polychromasia Present 08/01/18 07:00 Hypochromasia 2+ 07/30/18 10:31 Poikilocytosis 1+ 07/30/18 10:31 Anisocytosis 2+ 08/01/18 07:00 Sodium 135 mmol/L (136-145) L 08/01/18 07:00 Potassium 4.0 mmol/L (3.5-5.1) 08/01/18 07:00 Chloride 104 mmol/L (98-107) 08/01/18 07:00 Carbon Dioxide 20.7 mmol/L (21.0-32.0) L 08/01/18 07:00 Anion Gap 10.3 mmol/L (3-11) 08/01/18 07:00 BUN 32 mg/dL (7-18) H D 08/01/18 07:00 Creatinine 1.93 mg/dL (0.70-1.30) H D 08/01/18 07:00 Estimated GFR/1.73 m2 34.11 (mL/min/1.73m2) 08/01/18 07:00 Glucose 98 mg/dL (70-100) 08/01/18 07:00 Lactate 2.2 mmol/L (0.6-1.4) H* 07/30/18 10:31 Calcium 7.7 mg/dL (8.5-10.1) L 08/01/18 07:00 Magnesium 2.1 mg/dL (1.8-2.4) 08/01/18 07:00 Total Bilirubin 2.0 mg/dL (0.2-1.0) H 07/30/18 10:31 AST 45 U/L (15-37) H 07/30/18 10:31 ALT 31 U/L (12-78) 07/30/18 10:31 Alkaline Phosphatase 87 U/L (46-116) 07/30/18 10:31 Troponin I 0.02 ng/mL (0.00-0.06) 07/30/18 10:31 Total Protein 6.5 g/dL (6.4-8.2) 07/30/18 10:31 Albumin 3.3 g/dL (3.4-5.0) L 07/30/18 10:31 Lipase 180 U/L (73-393) 07/30/18 10:31 Urine Color Dark yellow (Yellow) 07/30/18 12:10 Urine Clarity Cloudy 07/30/18 12:10 Urine pH 5.5 (5-8) 07/30/18 12:10 Ur Specific [place] 1.025 (1.005-1.025) 07/30/18 12:10 Urine Protein >=300 mg/dL (Negative) H 07/30/18 12:10 Urine Ketones Trace mg/dL (Negative) H 07/30/18 12:10 Urine Blood Moderate (Negative) H 07/30/18 12:10 Urine Nitrite Negative (Negative) 07/30/18 12:10 Urine Bilirubin Negative (Negative) 07/30/18 12:10 Urine Urobilinogen 0.2 EU/dL (Up TO 0.2) 07/30/18 12:10 Ur Leukocyte Esterase Small (Negative) H 07/30/18 12:10 Urine RBC Not Applicable 07/30/18 12:10 Urine WBC HPF (0-5) 07/30/18 12:10 Ur Epithelial Cells Not Applicable 07/30/18 12:10 Urine Crystals Not Applicable 07/30/18 12:10 Urine Bacteria Not Applicable 07/30/18 12:10 Urine Mucus Not Applicable 07/30/18 12:10 Ur Culture Indicated? Yes 07/30/18 12:10 Urine Glucose Negative mg/dL (Negative) 07/30/18 12:10 Stool Source (see note) 07/31/18 03:40 Stool Collect Duration Random h 07/31/18 03:40 Stool Weight 36 g 07/31/18 03:40 Stool Percent Fat <15 % fat (< 20) 07/31/18 03:40 Stool Total Fats Not Applicable 07/31/18 03:40 Stool Campylobacter PCR See comments 07/30/18 12:00 Stl C.difficile Tox PCR Negative 07/30/18 12:00 Stool Salmonella PCR See comments 07/30/18 12:00 Stool Shigella PCR See comments 07/30/18 12:00 C.difficile Tox Source Feces 07/30/18 12:00 Cryptosporidium/Giardia (see note) 07/31/18 03:40 Shiga Toxin (PCR) See comments 07/30/18 12:00 Parasite Rprt Status (see note) 07/31/18 03:40 Path Cons Comment See comment 07/30/18 10:31
[2018-08-01] MEDS: Docusate Sodium 100 MG CAP PO (19:48)
[2018-08-01] MEDS: Acetaminophen 325 MG TAB PO (19:48)
[2018-08-01] MEDS: Fluticasone NASAL SPRAY 16 GM BTL NS (19:48)
[2018-08-01 19:51] VITALS: BP 115/57; PULSE 60; RESP 16; TEMP 36.9; O2SAT 97
[2018-08-02] MEDS: Lactated Ringers 1,000 ML 150 ML IV ×2 (00:41→07:28)
[2018-08-02] MEDS: Budesonide/Formoterol 160/4.5 6 GM 60 PUFF INH IH ×2 (07:23→20:45)
[2018-08-02 07:25] VITALS: BP 133/67; PULSE 48; RESP 14; TEMP 36; O2SAT 100
[2018-08-02 07:40] LABS: Abs Immature Grans 0.02 k/cumm (0.0-0.09); Absolute Lymphocyte Count 0.38 k/cumm (1.2-3.4); Absolute Monocyte Count 0.32 k/cumm (0.11-0.7); Absolute Neutrophil Count 2.39 k/cumm (1.2-6.7); HCT 27.5 % (40.0-50.0); HGB 8.9 g/dL (13.5-17.5); Immature Grans % 0.6; Lymphocytes % 12.2; Mean Corp. HGB Concentration 32.4 g/dL (32.0-36.0); Mean Corpuscular Volume 95.8 fL (80-95); Monocytes % 10.3; Neutrophils % 76.9; Platelet Count 88 x1000/uL (130-400); RBC 2.87 m/cumm (4.50-6.00); RBC Distribution Width 16.9 % (11.8-14.1); White Blood Cell Count 3.11 k/cumm (4.4-10.8)
[2018-08-02 07:51] LABS: Anion Gap 6.4 mmol/L (3-11); BUN 20 mg/dL (7-18); CO2 25.6 mmol/L (21.0-32.0); CREATININE 1.35 mg/dL (0.70-1.30); Calcium 7.7 mg/dL (8.5-10.1); Chloride 106 mmol/L (98-107); Estimated GFR 51.52 (mL/min/1.73m2); Glucose 88 mg/dL (70-100); Potassium 3.8 mmol/L (3.5-5.1); Sodium 138 mmol/L (136-145)
[2018-08-02 08:01] LABS: Anisocytosis 2+; Basophilic Stippling Present; Polychromasia Present
[2018-08-02] MEDS: Hydrocortisone SOD SUC. 100 MG VIAL 50 MG IVP ×2 (08:58→15:47)
[2018-08-02] MEDS: Pantoprazole 40 MG VIAL IVP (08:59)
[2018-08-02] MEDS: Normal Saline Flush 10 ML SYR IVP (08:59)
[2018-08-02] MEDS: Fludrocortisone 0.1 MG TAB 0.15 MG PO (08:59)
[2018-08-02] MEDS: Lactobacillus Acidophilus CAP 1 CAP PO ×3 (09:01→20:45)
[2018-08-02] MEDS: Lacosamide 100 MG TAB PO ×2 (09:01→20:45)
[2018-08-02] MEDS: Montelukast 10 MG TAB PO (09:01)
[2018-08-02] MEDS: Citalopram 20 MG TAB PO (09:02)
[2018-08-02] MEDS: Ondansetron 4 MG TAB PO (09:02)
[2018-08-02] MEDS: Folic Acid 1 MG TAB PO (09:02)
--- NOTE | 2018-08-02 10:18 | PGE_ITS ---
Date of Service Date of service: 08/02/18 Time of Service: 10:15 Assessment and Plan (1) Ileus: Current visit: Yes Status: Acute A\\ Looks like his ileus or PSBO has resolved. P\\ Advance diet to soft, low fiber We will sign off at this time. If the patients situation changes please let us know and we will be ahppy to see him again. No general surgery follow up as outpatient is needed. Thank you for your consultation. Subjective Interval history since last seen: Mr. Wang tolerated clear liquids for dinner and breakfast today. No increase in pain. No N/V. Ostomy still working Exam GI Palpation: soft, no hepatosplenomegaly and nontender Auscultation: normal bowel sounds Other: Ostomy- with liquid and some pieces of solid stool. Air in the ostomy bag as well. Objective Objective Clinical Data: Abnormal lab results 08/02/18 08/02/18 Range/Units 07:00 07:00 WBC 3.11 L D (4.4-10.8) k/cumm RBC 2.87 L (4.50-6.00) m/cumm Hgb 8.9 L (13.5-17.5) g/dL Hct 27.5 L (40.0-50.0) % MCV 95.8 H (80-95) fL RDW 16.9 H (11.8-14.1) % Plt Count 88 L (130-400) x1000/uL MPV 12.0 H (8.0-11.0) fL Absolute Lymphocytes 0.38 L (1.2-3.4) k/cumm BUN 20 H D (7-18) mg/dL Creatinine 1.35 H (0.70-1.30) mg/dL Calcium 7.7 L (8.5-10.1) mg/dL Vital Signs Temperature 96.8 F L 08/02/18 07:25 Temperature Source Tympanic 08/02/18 07:25 Pulse 48 L 08/02/18 07:25 Pulse Rhythm Regular 08/01/18 21:42 Pulse 93 H 07/30/18 13:31 Respiratory Rate 14 08/02/18 07:25 Respiratory Effort Non-Labored 08/01/18 20:14 Respiratory Depth Normal 08/01/18 20:14 Respiratory Pattern Normal 08/01/18 20:14 Blood Pressure 133/67 08/02/18 07:25 Blood Pressure Mean 58 07/30/18 13:31 Blood Pressure Position Supine 07/30/18 10:24 Pulse Oximetry 100 08/02/18 07:25 Oxygen Delivery Method Room Air 08/02/18 07:25 Oxygen Flow Rate 0 08/02/18 07:25 Pain Level 0 07/31/18 10:32 Intake & Output 08/01/18 08/01/18 08/02/18 11:59 23:59 11:59 Intake Total 2210.000 / 4452.500 2242.5 / 4452.500 2727.5 / 2727.5 Output Total 1050 / 2075 1025 / 2075 1000 / 1000 Balance 1160.000 / 2377.500 1217.5 / 2377.500 1727.5 / 1727.5 Weight 176 lb 9.444 oz 178 lb 12.718 oz Intake: IV 2210.000 / 3432.500 1222.5 / 3432.500 1877.5 / 1877.5 Oral 1020 / 1020 850 / 850 Output: Urine 400 / 1050 650 / 1050 650 / 650 Stool 650 / 1025 375 / 1025 350 / 350 Other: Urine Color Yellow Pale Light Mayi Light Mayi Urine Appearance Clear Clear Clear Stool Occult Blood Positive Stool Size Moderate Stool Characteristics Liquid Liquid Brown Green Laboratory Results WBC 3.11 k/cumm (4.4-10.8) L D 08/02/18 07:00 RBC 2.87 m/cumm (4.50-6.00) L 08/02/18 07:00 Hgb 8.9 g/dL (13.5-17.5) L 08/02/18 07:00 Hct 27.5 % (40.0-50.0) L 08/02/18 07:00 MCV 95.8 fL (80-95) H 08/02/18 07:00 MCH 31.0 pg (27.0-33.0) 08/02/18 07:00 MCHC 32.4 g/dL (32.0-36.0) 08/02/18 07:00 RDW 16.9 % (11.8-14.1) H 08/02/18 07:00 Plt Count 88 x1000/uL (130-400) L 08/02/18 07:00 MPV 12.0 fL (8.0-11.0) H 08/02/18 07:00 Immature Gran % 0.6 08/02/18 07:00 Neutrophils % 76.9 08/02/18 07:00 Band Neutrophils % 0.0 % 07/30/18 10:31 Lymphocytes % 12.2 08/02/18 07:00 Atypical Lymphs % 1 08/01/18 07:00 Monocytes % 10.3 08/02/18 07:00 Eosinophils % 0.0 08/02/18 07:00 Basophils % 0.0 08/02/18 07:00 Metamyelocytes % 0.0 % 07/30/18 10:31 Myelocytes % 0.0 % 07/30/18 10:31 Promyelocytes % 0 % 07/30/18 10:31 Absolute Neutrophils 2.39 k/cumm (1.2-6.7) 08/02/18 07:00 Absolute Lymphocytes 0.38 k/cumm (1.2-3.4) L 08/02/18 07:00 Absolute Monocytes 0.32 k/cumm (0.11-0.7) 08/02/18 07:00 Absolute Eosinophils 0.00 k/cumm (0.0-0.7) 08/02/18 07:00 Absolute Basophils 0.00 k/cumm (0.0-0.2) 08/02/18 07:00 Differential Comment Comment 08/02/18 07:00 Other Cell Type 2 07/30/18 10:31 RBC Morphology See below 08/02/18 07:00 Polychromasia Present 08/02/18 07:00 Hypochromasia 2+ 07/30/18 10:31 Poikilocytosis 1+ 07/30/18 10:31 Basophilic Stippling Present 08/02/18 07:00 Anisocytosis 2+ 08/02/18 07:00 Sodium 138 mmol/L (136-145) 08/02/18 07:00 Potassium 3.8 mmol/L (3.5-5.1) 08/02/18 07:00 Chloride 106 mmol/L (98-107) 08/02/18 07:00 Carbon Dioxide 25.6 mmol/L (21.0-32.0) 08/02/18 07:00 Anion Gap 6.4 mmol/L (3-11) 08/02/18 07:00 BUN 20 mg/dL (7-18) H D 08/02/18 07:00 Creatinine 1.35 mg/dL (0.70-1.30) H 08/02/18 07:00 Estimated GFR/1.73 m2 51.52 (mL/min/1.73m2) 08/02/18 07:00 Glucose 88 mg/dL (70-100) 08/02/18 07:00 Lactate 2.2 mmol/L (0.6-1.4) H* 07/30/18 10:31 Calcium 7.7 mg/dL (8.5-10.1) L 08/02/18 07:00 Magnesium 2.0 mg/dL (1.8-2.4) 08/02/18 07:00 Total Bilirubin 2.0 mg/dL (0.2-1.0) H 07/30/18 10:31 AST 45 U/L (15-37) H 07/30/18 10:31 ALT 31 U/L (12-78) 07/30/18 10:31 Alkaline Phosphatase 87 U/L (46-116) 07/30/18 10:31 Troponin I 0.02 ng/mL (0.00-0.06) 07/30/18 10:31 Total Protein 6.5 g/dL (6.4-8.2) 07/30/18 10:31 Albumin 3.3 g/dL (3.4-5.0) L 07/30/18 10:31 Lipase 180 U/L (73-393) 07/30/18 10:31 Urine Color Dark yellow (Yellow) 07/30/18 12:10 Urine Clarity Cloudy 07/30/18 12:10 Urine pH 5.5 (5-8) 07/30/18 12:10 Ur Specific [place] 1.025 (1.005-1.025) 07/30/18 12:10 Urine Protein >=300 mg/dL (Negative) H 07/30/18 12:10 Urine Ketones Trace mg/dL (Negative) H 07/30/18 12:10 Urine Blood Moderate (Negative) H 07/30/18 12:10 Urine Nitrite Negative (Negative) 07/30/18 12:10 Urine Bilirubin Negative (Negative) 07/30/18 12:10 Urine Urobilinogen 0.2 EU/dL (Up TO 0.2) 07/30/18 12:10 Ur Leukocyte Esterase Small (Negative) H 07/30/18 12:10 Urine RBC Not Applicable 07/30/18 12:10 Urine WBC HPF (0-5) 07/30/18 12:10 Ur Epithelial Cells Not Applicable 07/30/18 12:10 Urine Crystals Not Applicable 07/30/18 12:10 Urine Bacteria Not Applicable 07/30/18 12:10 Urine Mucus Not Applicable 07/30/18 12:10 Ur Culture Indicated? Yes 07/30/18 12:10 Urine Glucose Negative mg/dL (Negative) 07/30/18 12:10 Stool Source (see note) 07/31/18 03:40 Stool Collect Duration Random h 07/31/18 03:40 Stool Weight 36 g 07/31/18 03:40 Stool Percent Fat <15 % fat (< 20) 07/31/18 03:40 Stool Total Fats Not Applicable 07/31/18 03:40 Stool Campylobacter PCR See comments 07/30/18 12:00 Stl C.difficile Tox PCR Negative 07/30/18 12:00 Stool Salmonella PCR See comments 07/30/18 12:00 Stool Shigella PCR See comments 07/30/18 12:00 C.difficile Tox Source Feces 07/30/18 12:00 Cryptosporidium/Giardia (see note) 07/31/18 03:40 Shiga Toxin (PCR) See comments 07/30/18 12:00 Parasite Rprt Status (see note) 07/31/18 03:40 Path Cons Comment See comment 07/30/18 10:31
--- NOTE | 2018-08-02 11:32 | OT.INTREAT ---
Date of service: 08/02/18 Time of Service: 09:10 Occupational Therapy Notes Occupational Therapy Inpatient Treatment Note Date: 08/02/18 PRECAUTIONS: Fall, Standard SUBJECTIVE: Pt was sitting in bed when OT arrived. He reports that he is ready to get up and moving. He notes that his HR is low and he feels different but felt this way yesterday as well and pt reports this is being monitored per nursing. OBJECTIVE: PAIN:no c/o pain FUNCTIONAL MOBILITY Rolling L/R: (I) Supine-sit: (I) Sit-stand: (S) FWW Stand-sit: (S), FWW Bed-Chair: (S) Chair-bed: (S) BATHING: Max (A) set up as pt does not want to stand for too long d/t his HR Upper Body: (I), max (A) back Lower Body: (I) DRESSING: Sitting in chair Upper Extremity: (I) [facility] Lower Extremity: (I) GROOMING: Sitting in chair (I) brushing teeth ASSESSMENT/PLAN: Pt is functionally presenting with increased (I) in ADL/IADL routines. He is not currently performing his ADLs standing at the sink but is functionally (I) in the sitting position. Pt is feeling better per pt report. He was wager to walk with physical therapy post OT session to keep gaining his functional (I) and strength. OT will continue to progress towards goals established at [facility]. TREATMENT CODES/TIME: [id number], 20 minutes (09:10) Hayley Chandler OTR/[facility]
[2018-08-02 11:33] VITALS: BP 125/52; PULSE 53; RESP 16; TEMP 36.1; O2SAT 99
--- NOTE | 2018-08-02 11:39 | OTTR_ITS ---
Date of service: 08/02/18 Time of Service: 09:10 Occupational Therapy Notes Occupational Therapy Inpatient Treatment Note Date: 08/02/18 PRECAUTIONS: Fall, Standard SUBJECTIVE: Pt was sitting in bed when OT arrived. He reports that he is ready to get up and moving. He notes that his HR is low and he feels different but felt this way yesterday as well and pt reports this is being monitored per nursing. OBJECTIVE: PAIN:no c/o pain FUNCTIONAL MOBILITY Rolling L/R: (I) Supine-sit: (I) Sit-stand: (S) FWW Stand-sit: (S), FWW Bed-Chair: (S) Chair-bed: (S) BATHING: Max (A) set up as pt does not want to stand for too long d/t his HR Upper Body: (I), max (A) back Lower Body: (I) DRESSING: Sitting in chair Upper Extremity: (I) [facility] Lower Extremity: (I) GROOMING: Sitting in chair (I) brushing teeth ASSESSMENT/PLAN: Pt is functionally presenting with increased (I) in ADL/IADL routines. He is not currently performing his ADLs standing at the sink but is functionally (I) in the sitting position. Pt is feeling better per pt report. He was wager to walk with physical therapy post OT session to keep gaining his functional (I) and strength. OT will continue to progress towards goals established at [facility]. TREATMENT CODES/TIME: [id number], 20 minutes (09:10) Hayley Chandler OTR/[facility]
--- NOTE | 2018-08-02 12:58 | PHARADMIT ---
Admission Pharmacy Clinical Review SEPTIC SHOCK, ACUTE ADRENAL INSUFFIICIENCY, KORIN Code Status DNR/DNI Current Weight Wgt-81.1 kg Renally Cleared and Narrow Therapeutic Index Meds CrCl~ 48 ml/min Meds-OK QTc Value / Action Taken QTc- 404 Zofran,Protonix BP Control, Fever BP-125/52 Tmax-37.0 Electrolytes reviewed Na- 138 K+3.8 Mag-2.0 DVT Prophylaxis TEDS,SCDs, Low Platelets Opiate Usage / Scheduled Bowel Regimen Ordered No Yes Plt/SCr for Heparin / Enoxaparin Plts-88 SCr-1.35 INR for Warfarin na H/H stable, WBC/Bands H&H- 89/27.5 WBC- 3.11 Antibiotic appropriateness Cipro IV Cultures and Sensitivities Urine-yeast, Nose MRSA-neg, Lulcn-G-yxum neg Blood- no growth x 48hrs Surgical ABX d/c within 24 hr na DM control / Insulin Dosing BG- 88 Heart Failure (Check EF%) (MARIA DE JESUS's, B-Block, Diuretics) none IV to PO Switch No Home Meds Reviewed Yes Home Meds Not Ordered Immodium, MTX.TAC Cream Comments
--- NOTE | 2018-08-02 14:12 | PDOC.CMPRO ---
- If Service Date Differs Date of service: 08/02/18 Time of Service: 14:12 Care Management Progress Note S/O: Liang is ambulating in the espinoza today when this signwriter visits. He is pleasant and receptive to discussion. Liang reports feeling better today. Dr. Best met with him this morning to offer support and will continue to visit with him. Liang continues to report that his plan will be to return to [facility] when ready. Trista, [facility], was notified by ZANE Tesfaye CM, that Liang will potentially be ready for DC tomorrow 08/03/18. A: 77 y/o male admitted 07/30/18 for Septic Shock, Ileus P: Liang will return to [facility] when medically cleared. He will transport via [facility] when ready.
--- NOTE | 2018-08-02 14:15 | CMPROGNOTE_ITS ---
- If Service Date Differs Date of service: 08/02/18 Time of Service: 14:12 Care Management Progress Note S/O: Liang is ambulating in the espinoza today when this teletypewriter operator visits. He is pleasant and receptive to discussion. Liang reports feeling better today. Dr. Best met with him this morning to offer support and will continue to visit with him. Liang continues to report that his plan will be to return to [facility] when ready. Trista, [facility], was notified by ZANE Tesfaye CM, that Liang will potentially be ready for DC tomorrow 08/03/18. A: 77 y/o male admitted 07/30/18 for Septic Shock, Ileus P: Liang will return to [facility] when medically cleared. He will transport via [facility] when ready.
[2018-08-02] MEDS: Lactated Ringers 1,000 ML 100 ML IV (15:11)
--- NOTE | 2018-08-02 15:23 | PT.INTREAT ---
Date of service: 08/02/18 Time of Service: 15:23 PT Notes 08/02/18 SUBJECTIVE: Liang stating he feels pretty good. No pain complaints. OBJECTIVE: Seated in recliner. Agreeable to PT treatment. TRANSFERS Sit to stand: SBA Stand to sit: SBA GAIT Device: FWW Weight bearing: Full Assist: SBA Distance: 200' ASSESSMENT: Tolerates ambulation well without LOB or pain complaints. Manages well with FWW and demonstrates safe transfers. PLAN: Continue current POC progressing toward's established goals. Treatment time; 20 minutes [id number] Mayela Alejandro, JOSE CARLOS
--- NOTE | 2018-08-02 15:28 | PTTR_ITS ---
Date of service: 08/02/18 Time of Service: 15:23 PT Notes 08/02/18 SUBJECTIVE: Liang stating he feels pretty good. No pain complaints. OBJECTIVE: Seated in recliner. Agreeable to PT treatment. TRANSFERS Sit to stand: SBA Stand to sit: SBA GAIT Device: FWW Weight bearing: Full Assist: SBA Distance: 200' ASSESSMENT: Tolerates ambulation well without LOB or pain complaints. Manages well with FWW and demonstrates safe transfers. PLAN: Continue current POC progressing toward's established goals. Treatment time; 20 minutes [id number] Mayela Alejandro, JOSE CARLOS
--- NOTE | 2018-08-02 15:33 | W.PM.PROGNOT ---
Date of Service Date of service: 08/02/18 Time of Service: 15:33 Assessment and Plan (1) Ileus: Current visit: Yes Status: Acute NPO - Dr Sibley will see the patient shortly; defer diet to general surgeyr. Continue IVF, steroids, treat UTI. Heme positive stools could be due to inflammation in setting of ileus. H/H drop is expected with aggressive IV hydration. There is no evidence of aurea red blood. (2) Septic shock: Current visit: Yes Status: Resolved Due to UTI present on admission with history of vancomycin sensitive E. faecium. Adrenal insufficiency is a contributor. Urine C&S result is likely a false negative. Clinically improving with cipro (day 4/). S/p blackmon - VT today No evidence of GI tract infection. Continue IVF. Taper stress dose steroids. (3) UTI (urinary tract infection): Current visit: Yes Status: Acute Present on admission; Culture likely a false negative. Doubt yeast UTI. In setting of chronic urinary retention, also noted on presentation. For voiding trial today (4) Acute adrenal insufficiency: Current visit: Yes Status: Acute Continue steroid taper (5) Acute kidney injury superimposed on chronic kidney disease: Current visit: Yes Status: Acute Improved, combined obstructive and prerenal. Continue IVF. Continue to monitor kidney function. (6) Dehydration: Current visit: Yes Status: Acute Due to Diarrhea and UTI. Continue IVF. Improved. (7) Urinary retention: Current visit: Yes Status: Acute s/p prostatectomy; For voiding trial today/tonight. Patient has had an adverse reaction to flomax. Continue blackmon catheter. (8) Diarrhea: Current visit: Yes Status: Acute Likely due to an ileus. This seems to have resolved. Stool studies are negative for any infection. Tolerating a regular consistency diet. Stools are heme negative. (9) Seizure disorder: Current visit: No Status: Chronic Continue vimpat (10) Subdural hematoma: Current visit: No Status: Resolved Per patient, a long time ago. Heparin d/c'ed due to hem + stools. (11) Weakness: Current visit: No Status: Acute Likely due to sepsis and adrenal insufficiency. PT/OT consults. (12) Rheumatoid arthritis: Current visit: No Status: Chronic Hold methotrexate (13) DEVORAH on CPAP: Current visit: No Status: Chronic Provide CPAP at night (14) Benign prostatic hypertrophy: Current visit: No Status: Chronic Read re urinary retention above (15) Discharge planning issues: Current visit: No Status: Acute DNR/DNI. The patient is not firmly against ICU, per my conversation with him. (16) DVT prophylaxis: Current visit: Yes Status: Acute Heparin d/c'ed due to Hem + stools. SCD's + TEDs. Subjective Interval history since last seen: Mr Wang'francisco diet has been advanced - he tolerated it. His ostomy output has slowed down. He thinks he had beets for lunch - and right now his ostomy output is reddish but heme negative. Denies dizziness, chest pain, shortness of breath, nausea, vomiting. Exam Narrative Exam Narrative: General: Very pleasant elderly male, sitting up in a chair, A&Ox3 HEENT: EOMI, MMM Cardiovascular: RRR, quiet ANN Lungs: Diminished breath sounds B; no rhonchi or rales Gastrointestinal: LLQ ileostomy with with reddish liquid output, looks somewhat like blood (hem negative) Genitourinary: has a blackmon Extremities: no e/c/c BLE's, warm, +1 pedal pulses B Objective Objective Clinical Data: Abnormal lab results 08/02/18 08/02/18 Range/Units 07:00 07:00 WBC 3.11 L D (4.4-10.8) k/cumm RBC 2.87 L (4.50-6.00) m/cumm Hgb 8.9 L (13.5-17.5) g/dL Hct 27.5 L (40.0-50.0) % MCV 95.8 H (80-95) fL RDW 16.9 H (11.8-14.1) % Plt Count 88 L (130-400) x1000/uL MPV 12.0 H (8.0-11.0) fL Absolute Lymphocytes 0.38 L (1.2-3.4) k/cumm BUN 20 H D (7-18) mg/dL Creatinine 1.35 H (0.70-1.30) mg/dL Calcium 7.7 L (8.5-10.1) mg/dL Vital Signs Temperature 36.1 C L 08/02/18 11:33 Temperature Source Tympanic 08/02/18 11:33 Pulse 53 L 05/09/19 11:33 Pulse Rhythm Regular 08/02/18 11:02 Pulse 93 H 07/30/18 13:31 Respiratory Rate 16 08/02/18 11:33 Respiratory Effort 08/02/18 11:02 Respiratory Depth Normal 08/02/18 11:02 Respiratory Pattern Normal 08/02/18 11:02 Blood Pressure 125/52 L 08/02/18 11:33 Blood Pressure Mean 58 07/30/18 13:31 Blood Pressure Position Supine 07/30/18 10:24 Pulse Oximetry 99 08/02/18 11:33 Oxygen Delivery Method Room Air 08/02/18 11:33 Oxygen Flow Rate 0 08/02/18 11:33 Pain Level 0 07/31/18 10:32 Intake & Output 08/01/18 08/02/18 08/02/18 23:59 11:59 23:59 Intake Total 2242.5 / 4452.500 2727.5 / 3727.5 1000 / 3727.5 Output Total 1025 / 2075 1300 / 1300 Balance 1217.5 / 2377.500 1427.5 / 2427.5 1000 / 2427.5 Weight 81.1 kg Intake: IV 1222.5 / 3432.500 1877.5 / 2877.5 1000 / 2877.5 Oral 1020 / 1020 850 / 850 Output: Urine 650 / 1050 950 / 950 Stool 375 / 1025 350 / 350 Other: Urine Color Pale Light Mayi Light Mayi Urine Appearance Clear Clear Stool Size Moderate Stool Characteristics Liquid Green Laboratory Results WBC 3.11 k/cumm (4.4-10.8) L D 08/02/18 07:00 RBC 2.87 m/cumm (4.50-6.00) L 08/02/18 07:00 Hgb 8.9 g/dL (13.5-17.5) L 08/02/18 07:00 Hct 27.5 % (40.0-50.0) L 08/02/18 07:00 MCV 95.8 fL (80-95) H 08/02/18 07:00 MCH 31.0 pg (27.0-33.0) 08/02/18 07:00 MCHC 32.4 g/dL (32.0-36.0) 08/02/18 07:00 RDW 16.9 % (11.8-14.1) H 08/02/18 07:00 Plt Count 88 x1000/uL (130-400) L 08/02/18 07:00 MPV 12.0 fL (8.0-11.0) H 08/02/18 07:00 Immature Gran % 0.6 08/02/18 07:00 Neutrophils % 76.9 08/02/18 07:00 Band Neutrophils % 0.0 % 07/30/18 10:31 Lymphocytes % 12.2 08/02/18 07:00 Atypical Lymphs % 1 08/01/18 07:00 Monocytes % 10.3 08/02/18 07:00 Eosinophils % 0.0 08/02/18 07:00 Basophils % 0.0 08/02/18 07:00 Metamyelocytes % 0.0 % 07/30/18 10:31 Myelocytes % 0.0 % 07/30/18 10:31 Promyelocytes % 0 % 07/30/18 10:31 Absolute Neutrophils 2.39 k/cumm (1.2-6.7) 08/02/18 07:00 Absolute Lymphocytes 0.38 k/cumm (1.2-3.4) L 08/02/18 07:00 Absolute Monocytes 0.32 k/cumm (0.11-0.7) 08/02/18 07:00 Absolute Eosinophils 0.00 k/cumm (0.0-0.7) 08/02/18 07:00 Absolute Basophils 0.00 k/cumm (0.0-0.2) 08/02/18 07:00 Differential Comment Comment 08/02/18 07:00 Other Cell Type 2 07/30/18 10:31 RBC Morphology See below 08/02/18 07:00 Polychromasia Present 08/02/18 07:00 Hypochromasia 2+ 07/30/18 10:31 Poikilocytosis 1+ 07/30/18 10:31 Basophilic Stippling Present 08/02/18 07:00 Anisocytosis 2+ 08/02/18 07:00 Sodium 138 mmol/L (136-145) 08/02/18 07:00 Potassium 3.8 mmol/L (3.5-5.1) 08/02/18 07:00 Chloride 106 mmol/L (98-107) 08/02/18 07:00 Carbon Dioxide 25.6 mmol/L (21.0-32.0) 08/02/18 07:00 Anion Gap 6.4 mmol/L (3-11) 08/02/18 07:00 BUN 20 mg/dL (7-18) H D 08/02/18 07:00 Creatinine 1.35 mg/dL (0.70-1.30) H 08/02/18 07:00 Estimated GFR/1.73 m2 51.52 (mL/min/1.73m2) 08/02/18 07:00 Glucose 88 mg/dL (70-100) 08/02/18 07:00 Lactate 2.2 mmol/L (0.6-1.4) H* 07/30/18 10:31 Calcium 7.7 mg/dL (8.5-10.1) L 08/02/18 07:00 Magnesium 2.0 mg/dL (1.8-2.4) 08/02/18 07:00 Total Bilirubin 2.0 mg/dL (0.2-1.0) H 07/30/18 10:31 AST 45 U/L (15-37) H 07/30/18 10:31 ALT 31 U/L (12-78) 07/30/18 10:31 Alkaline Phosphatase 87 U/L (46-116) 07/30/18 10:31 Troponin I 0.02 ng/mL (0.00-0.06) 07/30/18 10:31 Total Protein 6.5 g/dL (6.4-8.2) 07/30/18 10:31 Albumin 3.3 g/dL (3.4-5.0) L 07/30/18 10:31 Lipase 180 U/L (73-393) 07/30/18 10:31 Urine Color Dark yellow (Yellow) 07/30/18 12:10 Urine Clarity Cloudy 07/30/18 12:10 Urine pH 5.5 (5-8) 07/30/18 12:10 Ur Specific Kamrar 1.025 (1.005-1.025) 07/30/18 12:10 Urine Protein >=300 mg/dL (Negative) H 07/30/18 12:10 Urine Ketones Trace mg/dL (Negative) H 07/30/18 12:10 Urine Blood Moderate (Negative) H 07/30/18 12:10 Urine Nitrite Negative (Negative) 07/30/18 12:10 Urine Bilirubin Negative (Negative) 07/30/18 12:10 Urine Urobilinogen 0.2 EU/dL (Up TO 0.2) 07/30/18 12:10 Ur Leukocyte Esterase Small (Negative) H 07/30/18 12:10 Urine RBC Not Applicable 07/30/18 12:10 Urine WBC HPF (0-5) 07/30/18 12:10 Ur Epithelial Cells Not Applicable 07/30/18 12:10 Urine Crystals Not Applicable 07/30/18 12:10 Urine Bacteria Not Applicable 07/30/18 12:10 Urine Mucus Not Applicable 07/30/18 12:10 Ur Culture Indicated? Yes 07/30/18 12:10 Urine Glucose Negative mg/dL (Negative) 07/30/18 12:10 Stool Source (see note) 07/31/18 03:40 Stool Collect Duration Random h 07/31/18 03:40 Stool Weight 36 g 07/31/18 03:40 Stool Percent Fat <15 % fat (< 20) 07/31/18 03:40 Stool Total Fats Not Applicable 07/31/18 03:40 Stool Campylobacter PCR See comments 07/30/18 12:00 Stl C.difficile Tox PCR Negative 07/30/18 12:00 Stool Salmonella PCR See comments 07/30/18 12:00 Stool Shigella PCR See comments 07/30/18 12:00 C.difficile Tox Source Feces 07/30/18 12:00 Cryptosporidium/Giardia (see note) 07/31/18 03:40 Shiga Toxin (PCR) See comments 07/30/18 12:00 Parasite Rprt Status (see note) 07/31/18 03:40 Path Cons Comment See comment 07/30/18 10:31
[2018-08-02] MEDS: CIPROFLOXACIN 200 MG/100 ML BAG IVPB (15:47)
[2018-08-02 15:50] VITALS: BP 106/43; PULSE 57; RESP 17; TEMP 35.6; O2SAT 99
--- NOTE | 2018-08-02 16:00 | PT.INTREAT ---
Date of service: 08/02/18 Time of Service: 09:39 PT Notes Inpatient Physical Therapy Treatment Note [facility] Date: 08/02/2018 PRECAUTIONS: Fall. Standard. SUBJECTIVE: Patient reports one episode of abdominal pain. He did say that he slept pretty good last night and he reports that his appetite is very much improved with plan to upgrade his diet consistency per nurse. He denies nausea, dizziness, and pain. He states I do not feel 100%, but not bad today. OBJECTIVE: Patient seen sitting on chair. PAIN: 0/10 BED MOBILITY/TRANSFERS Sit-stand: SBA Stand-sit: SBA Bed-Chair: SBA Chair-bed: SBA GAIT Assistive Device: FWW Weight bearing: Full Assist: SBA Distance: 150 feet +20 feet feet Deviation: Increasing mariella. Increasing step height in length. THEREX: Patient completed standing level exercises: High marches, heel raises, partial squats as indicated in exercise flow sheet without undue fatigue, significant increase in pain, increase in dyspnea. ASSESSMENT: Patient demonstrates good tolerance to physical therapy session with observed improvement in terms of pain level, activity tolerance, self-efficacy/confidence, and participation level. PLAN: Patient to progress with mobility level, functional performance, and knowledge of HEP to achieve previously established goals. TREATMENT CODE/TIME: 23195 for 15 minutes, 58446 for 10 minutes, beginning at 9:39 AM. A
--- NOTE | 2018-08-02 16:08 | PTTR_ITS ---
Date of service: 08/02/18 Time of Service: 09:39 PT Notes Inpatient Physical Therapy Treatment Note [facility] Date: 08/02/2018 PRECAUTIONS: Fall. Standard. SUBJECTIVE: Patient reports one episode of abdominal pain. He did say that he slept pretty good last night and he reports that his appetite is very much improved with plan to upgrade his diet consistency per nurse. He denies nausea, dizziness, and pain. He states I do not feel 100%, but not bad today. OBJECTIVE: Patient seen sitting on chair. PAIN: 0/10 BED MOBILITY/TRANSFERS Sit-stand: SBA Stand-sit: SBA Bed-Chair: SBA Chair-bed: SBA GAIT Assistive Device: FWW Weight bearing: Full Assist: SBA Distance: 150 feet +20 feet feet Deviation: Increasing mariella. Increasing step height in length. THEREX: Patient completed standing level exercises: High marches, heel raises, partial squats as indicated in exercise flow sheet without undue fatigue, significant increase in pain, increase in dyspnea. ASSESSMENT: Patient demonstrates good tolerance to physical therapy session with observed improvement in terms of pain level, activity tolerance, self- efficacy/confidence, and participation level. PLAN: Patient to progress with mobility level, functional performance, and knowledge of HEP to achieve previously established goals. TREATMENT CODE/TIME: 93751 for 15 minutes, [id number] for 10 minutes, beginning at 9:39 AM. A
--- NOTE | 2018-08-02 16:38 | NUR.NOTE ---
Nursing Note: per order of provider, liquid stool from the ileostomy is heme tested. this is negative, and the provider is advised. Carley is order dc'd , this is done by KATI . patient is educated to the fact that we need to measure his urine outputs, and to bladder scan him every 6 hours for residuals, it is explained to him that the rationale of this is to ensure hen is not retaining urine
--- NOTE | 2018-08-02 18:11 | W.PALPGNOTE ---
Date of service: 08/02/18 Time of Service: 06:11 Assessment and Plan (1) Ileus: Current visit: Yes Status: Acute (2) Acute adrenal insufficiency: Current visit: Yes Status: Acute (3) Acute kidney injury superimposed on chronic kidney disease: Current visit: Yes Status: Acute Overall Liang is doing much better. He feels like he is getting closer to being able to return to the [facility]. This makes him happy because he knows he will be seeing his Soon. He has been happy to see that his kidneys are recovering with IV fluids. Overall doing well. I expect discharge soon. This document was created by [employer] and may contain grammatical and translation errors. Subjective Patient reports: no new complaints and feels better Interval history since last seen: I am seeing Liang today in follow-up. He states he is feeling better. He is looking forward to spending time with his cat. He is not been having as much abdominal problems. Exam Narrative Exam Narrative: On exam he is lying in bed. He is a twinkle in his blue eyes. His heart is fairly regular. Lungs good aeration. Colostomy bag: No air, looks more normal and less green. Objective Objective Clinical Data: Abnormal lab results 08/02/18 08/02/18 Range/Units 07:00 07:00 WBC 3.11 L D (4.4-10.8) k/cumm RBC 2.87 L (4.50-6.00) m/cumm Hgb 8.9 L (13.5-17.5) g/dL Hct 27.5 L (40.0-50.0) % MCV 95.8 H (80-95) fL RDW 16.9 H (11.8-14.1) % Plt Count 88 L (130-400) x1000/uL MPV 12.0 H (8.0-11.0) fL Absolute Lymphocytes 0.38 L (1.2-3.4) k/cumm BUN 20 H D (7-18) mg/dL Creatinine 1.35 H (0.70-1.30) mg/dL Calcium 7.7 L (8.5-10.1) mg/dL Vital Signs Temperature 96.1 F L 08/02/18 15:50 Temperature Source Tympanic 08/02/18 15:50 Pulse 57 L 08/02/18 15:50 Pulse Rhythm Regular 08/02/18 11:02 Pulse 93 H 07/30/18 13:31 Respiratory Rate 17 08/02/18 15:50 Respiratory Effort 08/02/18 11:02 Respiratory Depth Normal 08/02/18 11:02 Respiratory Pattern Normal 08/02/18 11:02 Blood Pressure 106/43 L 08/02/18 15:50 Blood Pressure Mean 58 07/30/18 13:31 Blood Pressure Position Supine 07/30/18 10:24 Pulse Oximetry 99 08/02/18 15:50 Oxygen Delivery Method Room Air 08/02/18 15:50 Oxygen Flow Rate 0 08/02/18 15:50 Pain Level 0 07/31/18 10:32 Intake & Output 08/01/18 08/02/18 08/02/18 23:59 11:59 23:59 Intake Total 2242.5 / 4452.500 2727.5 / 4067.5 1340 / 4067.5 Output Total 1025 / 2075 1300 / 1810 510 / 1810 Balance 1217.5 / 2377.500 1427.5 / 2257.5 830 / 2257.5 Weight 178 lb 12.718 oz Intake: IV 1222.5 / 3432.500 1877.5 / 2977.5 1100 / 2977.5 Oral 1020 / 1020 850 / 1090 240 / 1090 Output: Urine 650 / 1050 950 / 1400 450 / 1400 Stool 375 / 1025 350 / 410 60 / 410 Other: Urine Color Pale Light Mayi Light Mayi Light Mayi Urine Appearance Clear Clear Cloudy Stool Size Moderate Stool Characteristics Liquid Green Laboratory Results WBC 3.11 k/cumm (4.4-10.8) L D 08/02/18 07:00 RBC 2.87 m/cumm (4.50-6.00) L 08/02/18 07:00 Hgb 8.9 g/dL (13.5-17.5) L 08/02/18 07:00 Hct 27.5 % (40.0-50.0) L 08/02/18 07:00 MCV 95.8 fL (80-95) H 08/02/18 07:00 MCH 31.0 pg (27.0-33.0) 08/02/18 07:00 MCHC 32.4 g/dL (32.0-36.0) 08/02/18 07:00 RDW 16.9 % (11.8-14.1) H 08/02/18 07:00 Plt Count 88 x1000/uL (130-400) L 08/02/18 07:00 MPV 12.0 fL (8.0-11.0) H 08/02/18 07:00 Immature Gran % 0.6 08/02/18 07:00 Neutrophils % 76.9 08/02/18 07:00 Band Neutrophils % 0.0 % 07/30/18 10:31 Lymphocytes % 12.2 08/02/18 07:00 Atypical Lymphs % 1 08/01/18 07:00 Monocytes % 10.3 08/02/18 07:00 Eosinophils % 0.0 08/02/18 07:00 Basophils % 0.0 08/02/18 07:00 Metamyelocytes % 0.0 % 07/30/18 10:31 Myelocytes % 0.0 % 07/30/18 10:31 Promyelocytes % 0 % 07/30/18 10:31 Absolute Neutrophils 2.39 k/cumm (1.2-6.7) 08/02/18 07:00 Absolute Lymphocytes 0.38 k/cumm (1.2-3.4) L 08/02/18 07:00 Absolute Monocytes 0.32 k/cumm (0.11-0.7) 08/02/18 07:00 Absolute Eosinophils 0.00 k/cumm (0.0-0.7) 08/02/18 07:00 Absolute Basophils 0.00 k/cumm (0.0-0.2) 08/02/18 07:00 Differential Comment Comment 08/02/18 07:00 Other Cell Type 2 07/30/18 10:31 RBC Morphology See below 08/02/18 07:00 Polychromasia Present 08/02/18 07:00 Hypochromasia 2+ 07/30/18 10:31 Poikilocytosis 1+ 07/30/18 10:31 Basophilic Stippling Present 08/02/18 07:00 Anisocytosis 2+ 08/02/18 07:00 Sodium 138 mmol/L (136-145) 08/02/18 07:00 Potassium 3.8 mmol/L (3.5-5.1) 08/02/18 07:00 Chloride 106 mmol/L (98-107) 08/02/18 07:00 Carbon Dioxide 25.6 mmol/L (21.0-32.0) 08/02/18 07:00 Anion Gap 6.4 mmol/L (3-11) 08/02/18 07:00 BUN 20 mg/dL (7-18) H D 08/02/18 07:00 Creatinine 1.35 mg/dL (0.70-1.30) H 08/02/18 07:00 Estimated GFR/1.73 m2 51.52 (mL/min/1.73m2) 08/02/18 07:00 Glucose 88 mg/dL (70-100) 08/02/18 07:00 Lactate 2.2 mmol/L (0.6-1.4) H* 07/30/18 10:31 Calcium 7.7 mg/dL (8.5-10.1) L 08/02/18 07:00 Magnesium 2.0 mg/dL (1.8-2.4) 08/02/18 07:00 Total Bilirubin 2.0 mg/dL (0.2-1.0) H 07/30/18 10:31 AST 45 U/L (15-37) H 07/30/18 10:31 ALT 31 U/L (12-78) 07/30/18 10:31 Alkaline Phosphatase 87 U/L (46-116) 07/30/18 10:31 Troponin I 0.02 ng/mL (0.00-0.06) 07/30/18 10:31 Total Protein 6.5 g/dL (6.4-8.2) 07/30/18 10:31 Albumin 3.3 g/dL (3.4-5.0) L 07/30/18 10:31 Lipase 180 U/L (73-393) 07/30/18 10:31 Urine Color Dark yellow (Yellow) 07/30/18 12:10 Urine Clarity Cloudy 07/30/18 12:10 Urine pH 5.5 (5-8) 07/30/18 12:10 Ur Specific [place] 1.025 (1.005-1.025) 07/30/18 12:10 Urine Protein >=300 mg/dL (Negative) H 07/30/18 12:10 Urine Ketones Trace mg/dL (Negative) H 07/30/18 12:10 Urine Blood Moderate (Negative) H 07/30/18 12:10 Urine Nitrite Negative (Negative) 07/30/18 12:10 Urine Bilirubin Negative (Negative) 07/30/18 12:10 Urine Urobilinogen 0.2 EU/dL (Up TO 0.2) 07/30/18 12:10 Ur Leukocyte Esterase Small (Negative) H 07/30/18 12:10 Urine RBC Not Applicable 07/30/18 12:10 Urine WBC HPF (0-5) 07/30/18 12:10 Ur Epithelial Cells Not Applicable 07/30/18 12:10 Urine Crystals Not Applicable 07/30/18 12:10 Urine Bacteria Not Applicable 07/30/18 12:10 Urine Mucus Not Applicable 07/30/18 12:10 Ur Culture Indicated? Yes 07/30/18 12:10 Urine Glucose Negative mg/dL (Negative) 07/30/18 12:10 Stool Source (see note) 07/31/18 03:40 Stool Collect Duration Random h 07/31/18 03:40 Stool Weight 36 g 07/31/18 03:40 Stool Percent Fat <15 % fat (< 20) 07/31/18 03:40 Stool Total Fats Not Applicable 07/31/18 03:40 Stool Campylobacter PCR See comments 07/30/18 12:00 Stl C.difficile Tox PCR Negative 07/30/18 12:00 Stool Salmonella PCR See comments 07/30/18 12:00 Stool Shigella PCR See comments 07/30/18 12:00 C.difficile Tox Source Feces 07/30/18 12:00 Cryptosporidium/Giardia (see note) 07/31/18 03:40 Shiga Toxin (PCR) See comments 07/30/18 12:00 Parasite Rprt Status (see note) 07/31/18 03:40 Path Cons Comment See comment 07/30/18 10:31
[2018-08-02 19:57] VITALS: BP 123/55; PULSE 65; RESP 16; TEMP 36.1; O2SAT 98
[2018-08-02] MEDS: Hydrocortisone 10 MG TAB 50 MG PO (20:44)
[2018-08-02] MEDS: Acetaminophen 325 MG TAB PO (20:45)
[2018-08-02] MEDS: Fluticasone NASAL SPRAY 16 GM BTL NS (20:45)
[2018-08-03 03:22] VITALS: BP 111/57; PULSE 55; RESP 18; TEMP 36.7; O2SAT 97
[2018-08-03 07:35] VITALS: BP 120/57; PULSE 56; RESP 19; TEMP 36.7; O2SAT 94
[2018-08-03 07:44] LABS: Abs Immature Grans 0.03 k/cumm (0.0-0.09); Absolute Eosinophil Count 0.01 k/cumm (0.0-0.7); Absolute Lymphocyte Count 0.39 k/cumm (1.2-3.4); Absolute Monocyte Count 0.37 k/cumm (0.11-0.7); Absolute Neutrophil Count 2.87 k/cumm (1.2-6.7); Eosinophils % 0.3; HCT 28.5 % (40.0-50.0); HGB 9.2 g/dL (13.5-17.5); Immature Grans % 0.8; Lymphocytes % 10.6; Mean Corp. HGB Concentration 32.3 g/dL (32.0-36.0); Mean Corpuscular Hemoglobin 31.1 pg (27.0-33.0); Mean Corpuscular Volume 96.3 fL (80-95); Mean Platelet Volume 11.8 fL (8.0-11.0); Monocytes % 10.1; Neutrophils % 78.2; RBC 2.96 m/cumm (4.50-6.00); RBC Distribution Width 16.7 % (11.8-14.1); White Blood Cell Count 3.67 k/cumm (4.4-10.8)
[2018-08-03] MEDS: Budesonide/Formoterol 160/4.5 6 GM 60 PUFF INH IH (07:47)
[2018-08-03 07:48] LABS: Anion Gap 6.4 mmol/L (3-11); BUN 17 mg/dL (7-18); CO2 24.6 mmol/L (21.0-32.0); CREATININE 1.14 mg/dL (0.70-1.30); Calcium 7.8 mg/dL (8.5-10.1); Chloride 106 mmol/L (98-107); Glucose 94 mg/dL (70-100); Magnesium 1.6 mg/dL (1.8-2.4); Potassium 3.7 mmol/L (3.5-5.1); Sodium 137 mmol/L (136-145)
[2018-08-03 08:00] LABS: Platelet Count 98 x1000/uL (130-400)
--- NOTE | 2018-08-03 09:14 | PT.INTREAT ---
Date of service: 08/03/18 Time of Service: 09:14 PT Notes 08/03/18 SUBJECTIVE: Liang stating he is feeling pretty good. He did not sleep well because he drank coffee with his dinner. He feels ready to go back to the [facility]. OBJECTIVE: Seated in recliner. Agreeable to PT. TRANSFERS Sit to stand: SBA Stand to sit: SBA GAIT Device: FWW Weight bearing: Full Assist: SBA Distance: 200' ASSESSMENT: Tolerates PT well with good management of FWW and demonstrates improved safety with transfers. PLAN: Continue current POC progressing toward's established goals. Treatment time: 15 minutes [id number] Mayela Alejandro, W[employer]
[2018-08-03] MEDS: Pantoprazole 40 MG VIAL IVP (09:17)
[2018-08-03] MEDS: Normal Saline Flush 10 ML SYR IVP (09:18)
[2018-08-03] MEDS: Lactobacillus Acidophilus CAP 1 CAP PO (09:18)
[2018-08-03] MEDS: Fludrocortisone 0.1 MG TAB 0.15 MG PO (09:18)
--- NOTE | 2018-08-03 09:18 | PTTR_ITS ---
Date of service: 08/03/18 Time of Service: 09:14 PT Notes 08/03/18 SUBJECTIVE: Liang stating he is feeling pretty good. He did not sleep well because he drank coffee with his dinner. He feels ready to go back to the [facility]. OBJECTIVE: Seated in recliner. Agreeable to PT. TRANSFERS Sit to stand: SBA Stand to sit: SBA GAIT Device: FWW Weight bearing: Full Assist: SBA Distance: 200' ASSESSMENT: Tolerates PT well with good management of FWW and demonstrates improved safety with transfers. PLAN: Continue current POC progressing toward's established goals. Treatment time: 15 minutes [id number] Mayela Alejandro, RECREATION SPECIALIST
[2018-08-03] MEDS: Lacosamide 100 MG TAB PO (09:19)
[2018-08-03] MEDS: Folic Acid 1 MG TAB PO (09:19)
[2018-08-03] MEDS: Citalopram 20 MG TAB PO (09:19)
[2018-08-03] MEDS: Montelukast 10 MG TAB PO (09:19)
[2018-08-03] MEDS: Ondansetron 4 MG TAB PO (09:19)
--- NOTE | 2018-08-03 09:34 | OT.INDS ---
Date of service: 08/03/18 Time of Service: 09:10 Occupational Therapy Notes Occupational Therapy Inpatient Discharge Summary Date: 08/03/18 Dates of Service: 07/31/18-08/03/18 Referring Doctor: Karen Mendoza MD OT Orders: Eval and Treat Precautions: Fall, Contact PATIENT PROFILE/ADMITTING DIAGNOSIS: Pt is a 77 year old male who was admitted to [facility] for septic shock, UTI, acute adrenal insufficiency, acute on chronic kidney disease, dehydration, and diarrhea. 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 He reports that his baseline is fairly (I) he reports the only thing he cannot perform (I) is walking with his water and washing his back. Equipment owned/DME: Lives at [facility] all DME needs met. SUBJECTIVE: Pt was sitting in chair when OT arrived. He was agreeable to OT session reporting that he would like to return to [facility] to see his kitten. OBJECTIVE: General Observation: IV (R) UE, Howe, Mental Status: A&Ox3 Pain: no c/o pain ROM: RUE AROM WFL L UE AROM WFL STRENGTH: RUE 4-/5 throughout LUE 4/5 throughout FUNCTIONAL MOBILITY/ADLS: Sit-Stand (S) Stand to Sit (S) Chair to sink (S) Sink to Chair (S) BATHING Bathing UE (I) Bathing LE (I) sitting in chair with max (A) set up DRESSING Sitting on side of bed Dressing UE (I) [facility] gown Dressing LE (I) donning and doffing (B) socks BALANCE: Static sitting Normal Dynamic Sitting Normal Static Standing Good Dynamic Standing Good ASSESSMENT: Patient is a 77-year-old male referred to occupational therapy services with diagnosis of septic shock, UTI, acute adrenal insufficiency, acute on chronic kidney disease, dehydration, and diarrhea in setting of significant PMHx. Pt has demonstrated increased functional activity tolerance, increased (I) in functional mobility and increased (I) in ADls/IADLs in both the standing and sitting position. Pt has met all OT goals established at evaluation and OT recommends that he returns to the [facility] when medically cleared per MD with no DMEs needed. GOALS- MET 1. Transfers FWW (S) 2. Dressing Sitting in chair (I) 3. Bathing Standing at sink (I) washing UE/sitting (I) LE 4. Toileting (I) toilet 5. Eating (I) PLAN OF CARE/TREATMENT PLAN: Discharge skilled OT services. DISCHARGE RECOMMENDATIONS OT recommends that pt return to [facility] when medically cleared per MD. TREATMENT TIME/MINUTES/CODES [id number], 25minutes (09:10) ROBIN [facility]uz[facility]
--- NOTE | 2018-08-03 09:40 | OTDS_ITS ---
Date of service: 08/03/18 Time of Service: 09:10 Occupational Therapy Notes Occupational Therapy Inpatient Discharge Summary Date: 08/03/18 Dates of Service: 07/31/18-08/03/18 Referring Doctor: Karen Mendoza MD OT Orders: Eval and Treat Precautions: Fall, Contact PATIENT PROFILE/ADMITTING DIAGNOSIS: Pt is a 77 year old male who was admitted to [facility] for septic shock, UTI, acute adrenal insufficiency, acute on chronic kidney disease, dehydration, and diarrhea. 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 He reports that his baseline is fairly (I) he reports the only thing he cannot perform (I) is walking with his water and washing his back. Equipment owned/DME: Lives at [facility] all DME needs met. SUBJECTIVE: Pt was sitting in chair when OT arrived. He was agreeable to OT session reporting that he would like to return to [facility] to see his kitten. OBJECTIVE: General Observation: IV (R) UE, Howe, Mental Status: A&Ox3 Pain: no c/o pain ROM: RUE AROM WFL L UE AROM WFL STRENGTH: RUE 4-/5 throughout LUE 4/5 throughout FUNCTIONAL MOBILITY/ADLS: Sit-Stand (S) Stand to Sit (S) Chair to sink (S) Sink to Chair (S) BATHING Bathing UE (I) Bathing LE (I) sitting in chair with max (A) set up DRESSING Sitting on side of bed Dressing UE (I) [facility] gown Dressing LE (I) donning and doffing (B) socks BALANCE: Static sitting Normal Dynamic Sitting Normal Static Standing Good Dynamic Standing Good ASSESSMENT: Patient is a 77-year-old male referred to occupational therapy services with diagnosis of septic shock, UTI, acute adrenal insufficiency, acute on chronic kidney disease, dehydration, and diarrhea in setting of significant PMHx. Pt has demonstrated increased functional activity tolerance, increased (I) in functional mobility and increased (I) in ADls/IADLs in both the standing and sitting position. Pt has met all OT goals established at evaluation and OT recommends that he returns to the [facility] when medically cleared per MD with no DMEs needed. GOALS- MET 1. Transfers FWW (S) 2. Dressing Sitting in chair (I) 3. Bathing Standing at sink (I) washing UE/sitting (I) LE 4. Toileting (I) toilet 5. Eating (I) PLAN OF CARE/TREATMENT PLAN: Discharge skilled OT services. DISCHARGE RECOMMENDATIONS OT recommends that pt return to [facility] when medically cleared per MD. TREATMENT TIME/MINUTES/CODES [id number], 25minutes (09:10) [facility]
--- NOTE | 2018-08-03 10:45 | CHAPLAIN ---
Liang is doing better today. He talked about relieved he is to be feeling better, and said he will likely go back to the [facility] today. He is looking forward to seeing his cat again. The cat had belonged to Liang's Steffany, and was very attached to Steffany, but since Steffany's , the cat has become close to Liang and sleeps on the bed with him. Liang said he was making plans to have Steffany's committal service soon, but has decided to wait until he is feeling stronger. He has nieces and nephews who live in [place], [place] and [place], but take turns driving up most weekends to visit him and Liang very much appreciates the visits.
[2018-08-03] MEDS: Hydrocortisone 10 MG TAB 50 MG PO (11:25)
[2018-08-03] MEDS: MAGNESIUM SULFATE 2 GM/50 ML BAG IVPB (11:27)
[2018-08-03 11:54] VITALS: BP 122/53; PULSE 55; RESP 19; TEMP 36.2; O2SAT 98
--- NOTE | 2018-08-03 12:21 | PDOC.CMDIS ---
- If Service Date Differs Date of service: 08/03/18 Time of Service: 12:21 LACE Index Scoring Tool - Questions: Length of Stay (in days): 4 - 6 Acuity (Admit via E.D.?): Yes Comorbidities: Chronic Pulmonary Disease E.D. Visits: 7 - Answers: Total Score: 13 Risk of Readmission: High Risk Care Management Discharge Reason for Hospitalization: Septic shock, UTI Discharge Plan: Liang will return to [facility] today via RCT @ 1300. CM notified Kacey Weston [facility], of the above. SNF forms completed and placed on the front of the chart. KATI Kearns, and ZANE [facility], notified of DC plan. Patient/Family Education Needs: Review DC instructions, any limitations, and discuss 'Ask Me Three' Services Needed at Discharge: Snf Facility ([facility]), Transportation ([facility])
--- NOTE | 2018-08-03 12:26 | CMDISCH_ITS ---
- If Service Date Differs Date of service: 08/03/18 Time of Service: 12:21 LACE Index Scoring Tool - Questions: Length of Stay (in days): 4 - 6 Acuity (Admit via E.D.?): Yes Comorbidities: Chronic Pulmonary Disease E.D. Visits: 7 - Answers: Total Score: 13 Risk of Readmission: High Risk Care Management Discharge Reason for Hospitalization: Septic shock, UTI Discharge Plan: Liang will return to The [facility] today via RCT @ 1300. CM notified Kacey Weston [facility], of the above. SNF forms completed and placed on the front of the chart. KATI Kearns, and [facility], notified of DC plan. Patient/Family Education Needs: Review DC instructions, any limitations, and discuss 'Ask Me Three' Services Needed at Discharge: Prison Facility ([facility]), Transportation ([facility])
--- NOTE | 2018-08-03 12:57 | W.PM.DS.N ---
Date of service: 08/03/18 Time of Service: 12:57 DS: Diagnosis Discharge Diagnosis (1) Ileus: Status: Acute (2) Acute adrenal insufficiency: Status: Acute (3) Acute kidney injury superimposed on chronic kidney disease: Status: Acute (4) Septic shock: Status: Resolved (5) Diarrhea: Status: Acute (6) UTI (urinary tract infection): Status: Acute (7) Urinary retention: Status: Acute (8) Dehydration: Status: Acute (9) Seizure disorder: Status: Chronic (10) Subdural hematoma: Status: Resolved (11) Rheumatoid arthritis: Status: Chronic (12) DEVORAH on CPAP: Status: Chronic (13) Iron deficiency anemia: Status: Acute Discharge Plan Disposition Patient Disposition: SNF (LEVEL 1) [facility] Condition: Serious Discharge Details Reason For Visit: SEPTIC SHOCK, ACUTE ADRENAL INSUFFICIENCY, KORIN Admit Date/Time: 07/30/18 12:32 Admit Provider: Karen Mendoza Attending Provider: Karen Mendoza Primary Care Provider: Sheeba Morelos Hospital Course Hospital Course: Mr Wang is a 77 year old male with PMHx of adrenal insufficiency, UC s/p ileostomy, RA, urinary retention, admitted to [facility] on 07/30/18 in acute on chronic adrenal insufficiency and septic shock in setting as well as KORIN on CKD in setting of acute UTI due to urinary retention and dehydration due to high output ileostomy due to an ileus. The patient was treated with IV fluids, IV hydrocortisone, IV antibiotics and bowel rest. He was evaluated by surgery and felt to be safe to be treated nonoperatively. He has completed 5/7 days of antibiotics and will be discharged to alf on cipro x 2 more days. He passed a voiding trial. Home Meds and New Rx's Prescriptions: New ciprofloxacin HCl [Cipro] 250 mg tablet 250 mg PO BID Qty: 7 RF: 0 Continued Symbicort 160-4.5 mcg/actuation HFA aerosol inhaler 1 puff Inhalation BID Qty: 3 RF: 3 pantoprazole 40 mg tablet,delayed release (DR/EC) 40 mg PO DAILY Qty: 90 RF: 3 fludrocortisone 0.1 MG tablet 0.15 mg PO DAILY Qty: 90 RF: 3 folic acid 1 MG tablet 1 mg PO DAILY RF: 0 montelukast 10 MG tablet 10 mg PO DAILY Qty: 90 RF: 3 Prolia 60 MG/1 ML syringe 60 mg SQ q6 months RF: 0 BD Regular Bevel [place] 1 EACH needle 1 ea Miscellaneous monthly Qty: 12 RF: 0 citalopram 20 mg tablet 20 mg PO DAILY Qty: 90 RF: 3 epinephrine 0.3 MG/SYR auto-injector 0.3 mg Sub-Q PRN PRNRF: 0 Vimpat 100 mg Tablet 100 mg PO BID Qty: 0 RF: 0 ondansetron HCl 4 mg Tablet 4 mg PO DAILY RF: 0 ondansetron HCl 4 mg Tablet 4 mg PO .Q6H, PRN RF: 0 methotrexate sodium 2.5 mg Tablet 15 mg PO .QWEEK RF: 0 fluticasone propionate 50 mcg/actuation spray,suspension 2 spray NS HS RF: 0 hydrocortisone 5 mg Tablet 5 mg PO BID@0800,1700 RF: 0 loperamide [Imodium A-D] 2 mg Tablet 2 mg PO TID RF: 0 hydrocortisone 20 mg Tablet 20 mg PO DAILY RF: 0 cholecalciferol (vitamin D3) 5,000 unit Capsule 5,000 unit PO DAILY RF: 0 cyanocobalamin (vitamin B-12) 1,000 mcg/mL solution 1,000 mcg IM monthly RF: 0 Discharge Instructions Instructions: Urinary Tract Infection in Men (DC), Ileus (DC) Additional Instructions: Finish antibiotics as prescribed. Drink plenty of fluids. Follow up with general surgery in 1-2 weeks. Return to the hospital with any fever, bleeding, chest pain or shortness of breath. Stand Alone Forms: Nursing Discharge Form Referrals: Krissy Sibley MD [ [facility] STAFF PHYSICIAN] - Activity:: Activity as Tolerated Equipment/Supplies:: No Equipment Needed Diet:: As Tolerated Discharge Orders Discharge Orders: Discharge Order (Routine); Ordered 08/03/18 Ordered By: Karen Mendoza Exam Narrative Exam Narrative: General: Very pleasant elderly male, sitting up in a chair, A&Ox3 HEENT: EOMI, MMM Cardiovascular: RRR, quiet ANN Lungs: Diminished breath sounds B; no rhonchi or rales Gastrointestinal: LLQ ileostomy with chunky green output Genitourinary: has a blackmon Extremities: no e/c/c BLE's, warm, +1 pedal pulses B DS: Data Vitals/I&O Vitals and I&O: Vital Signs Temperature 36.2 C L 08/03/18 11:54 Temperature Source Tympanic 08/03/18 11:54 Pulse 55 L 08/03/18 11:54 Pulse Rhythm Regular 08/02/18 21:02 Pulse 93 H 07/30/18 13:31 Respiratory Rate 19 08/03/18 11:54 Respiratory Effort Non-Labored 08/02/18 21:02 Respiratory Depth Normal 08/02/18 21:02 Respiratory Pattern Normal 08/02/18 21:02 Blood Pressure 122/53 L 08/03/18 11:54 Blood Pressure Mean 58 07/30/18 13:31 Blood Pressure Position Supine 07/30/18 10:24 Pulse Oximetry 98 08/03/18 11:54 Oxygen Delivery Method Room Air 08/03/18 11:54 Oxygen Flow Rate 0 08/03/18 11:54 Pain Level 0 07/31/18 10:32 Intake & Output 08/02/18 08/03/18 08/03/18 23:59 11:59 23:59 Intake Total 1680 / 4407.5 1440 / 1440 Output Total 1410 / 2710 1550 / 1550 Balance 270 / 1697.5 -110 / -110 Weight 83.4 kg Intake: IV 1100 / 2977.5 1000 / 1000 Oral 580 / 1430 440 / 440 Output: Urine 500 / 1450 550 / 550 Stool 910 / 1260 1000 / 1000 Other: Urine Color Light Mayi Yellow Urine Appearance Clear Clear Urine Odor None Normal Voiding Methods Urinal Urinal Completed studies during hospitalization [Text1]: CXR 07/30/18: No evidence of acute disease. CT abdomen/pelvis 07/31/18: Dilated loops of small bowel as described with air-fluid levels. The findings raise the question of a bowel obstruction. There does appear to be a transition in the right lower quadrant. Ileus cannot be excluded. Labs on day of discharge: Labs from last 24 hours 08/03/18 08/03/18 07:10 07:10 WBC 3.67 L RBC 2.96 L Hgb 9.2 L Hct 28.5 L MCV 96.3 H MCH 31.1 MCHC 32.3 RDW 16.7 H Plt Count 98 L MPV 11.8 H Immature Gran % 0.8 Neutrophils % 78.2 Lymphocytes % 10.6 Monocytes % 10.1 Eosinophils % 0.3 Basophils % 0.0 Absolute Neutrophils 2.87 Absolute Lymphocytes 0.39 L Absolute Monocytes 0.37 Absolute Eosinophils 0.01 Absolute Basophils 0.00 Sodium 137 Potassium 3.7 Chloride 106 Carbon Dioxide 24.6 Anion Gap 6.4 BUN 17 Creatinine 1.14 Estimated GFR/1.73 m2 >= 60.00 Glucose 94 Calcium 7.8 L Magnesium 1.6 L Preliminary micro results at discharge 07/30/18 13:20 Blood Culture - Preliminary Blood NO GROWTH 72 HOURS 07/30/18 13:31 Blood Culture - Preliminary Blood NO GROWTH 72 HOURS [facility] Medical History Seizure disorder (Chronic) Subdural hematoma (Resolved) Rheumatoid arthritis (Chronic 11/06/15) DEVORAH on CPAP (Chronic 11/06/15) Depression (Chronic 08/14/17) CKD (chronic kidney disease) stage 3, GFR 30-59 ml/min (Chronic 11/06/15) Burton's disease (Chronic) H/O ulcerative colitis (Chronic) Asthma (Chronic) COPD (chronic obstructive pulmonary disease) (Chronic) Chronic deep vein thrombosis (DVT) (Chronic) Hypertension (Chronic) 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 Sister No problems noted. Brother No problems noted. Brother Diabetes ASCVD (arteriosclerotic cardiovascular disease) Brother No problems noted. Sister Diabetes Sister No problems noted. Other Arthritis Social History Smoking/Tobacco Use Status: Former Tobacco Use Alcohol Intake: never Drug use: Never Substance use type: does not use Do you feel safe at home: Yes Do you feel safe in your relationship?: Yes
--- NOTE | 2018-08-03 13:00 | DSE_ITS ---
Date of service: 08/03/18 Time of Service: 12:57 DS: Diagnosis Discharge Diagnosis (1) Ileus: Status: Acute (2) Acute adrenal insufficiency: Status: Acute (3) Acute kidney injury superimposed on chronic kidney disease: Status: Acute (4) Septic shock: Status: Resolved (5) Diarrhea: Status: Acute (6) UTI (urinary tract infection): Status: Acute (7) Urinary retention: Status: Acute (8) Dehydration: Status: Acute (9) Seizure disorder: Status: Chronic (10) Subdural hematoma: Status: Resolved (11) Rheumatoid arthritis: Status: Chronic (12) DEVORAH on CPAP: Status: Chronic (13) Iron deficiency anemia: Status: Acute Discharge Plan Disposition Patient Disposition: SNF (LEVEL 1) [facility] Condition: Serious Discharge Details Reason For Visit: SEPTIC SHOCK, ACUTE ADRENAL INSUFFICIENCY, KORIN Admit Date/Time: 07/30/18 12:32 Admit Provider: Karen Mendoza Attending Provider: Karen Mendoza Primary Care Provider: Sheeba Morelos Hospital Course Hospital Course: Mr Wang is a 77 year old male with PMHx of adrenal insufficiency, UC s/p ileostomy, RA, urinary retention, admitted to [facility] on 07/30/18 in acute on chronic adrenal insufficiency and septic shock in setting as well as KORIN on CKD in setting of acute UTI due to urinary retention and dehydration due to high output ileostomy due to an ileus. The patient was treated with IV fluids, IV hydrocortisone, IV antibiotics and bowel rest. He was evaluated by surgery and felt to be safe to be treated nonoperatively. He has completed 5/7 days of antibiotics and will be discharged to detention on cipro x 2 more days. He passed a voiding trial. Home Meds and New Rx's Prescriptions: New ciprofloxacin HCl [Cipro] 250 mg tablet 250 mg PO BID Qty: 7 RF: 0 Continued Symbicort 160-4.5 mcg/actuation HFA aerosol inhaler 1 puff Inhalation BID Qty: 3 RF: 3 pantoprazole 40 mg tablet,delayed release (DR/EC) 40 mg PO DAILY Qty: 90 RF: 3 fludrocortisone 0.1 MG tablet 0.15 mg PO DAILY Qty: 90 RF: 3 folic acid 1 MG tablet 1 mg PO DAILY RF: 0 montelukast 10 MG tablet 10 mg PO DAILY Qty: 90 RF: 3 Prolia 60 MG/1 ML syringe 60 mg SQ q6 months RF: 0 BD Regular Bevel [place] 1 EACH needle 1 ea Miscellaneous monthly Qty: 12 RF: 0 citalopram 20 mg tablet 20 mg PO DAILY Qty: 90 RF: 3 epinephrine 0.3 MG/SYR auto-injector 0.3 mg Sub-Q PRN PRNRF: 0 Vimpat 100 mg Tablet 100 mg PO BID Qty: 0 RF: 0 ondansetron HCl 4 mg Tablet 4 mg PO DAILY RF: 0 ondansetron HCl 4 mg Tablet 4 mg PO .Q6H, PRN RF: 0 methotrexate sodium 2.5 mg Tablet 15 mg PO .QWEEK RF: 0 fluticasone propionate 50 mcg/actuation spray,suspension 2 spray NS HS RF: 0 hydrocortisone 5 mg Tablet 5 mg PO BID@0800,1700 RF: 0 loperamide [Imodium A-D] 2 mg Tablet 2 mg PO TID RF: 0 hydrocortisone 20 mg Tablet 20 mg PO DAILY RF: 0 cholecalciferol (vitamin D3) 5,000 unit Capsule 5,000 unit PO DAILY RF: 0 cyanocobalamin (vitamin B-12) 1,000 mcg/mL solution 1,000 mcg IM monthly RF: 0 Discharge Instructions Instructions: Urinary Tract Infection in Men (DC), Ileus (DC) Additional Instructions: Finish antibiotics as prescribed. Drink plenty of fluids. Follow up with general surgery in 1-2 weeks. Return to the hospital with any fever, bleeding, chest pain or shortness of breath. Stand Alone Forms: Nursing Discharge Form Referrals: Krissy Sibley MD [ [facility] STAFF PHYSICIAN] - Activity:: Activity as Tolerated Equipment/Supplies:: No Equipment Needed Diet:: As Tolerated Discharge Orders Discharge Orders: Discharge Order (Routine); Ordered 08/03/18 Ordered By: Karen Mendoza Exam Narrative Exam Narrative: General: Very pleasant elderly male, sitting up in a chair, A&Ox3 HEENT: EOMI, MMM Cardiovascular: RRR, quiet ANN Lungs: Diminished breath sounds B; no rhonchi or rales Gastrointestinal: LLQ ileostomy with chunky green output Genitourinary: has a blackmon Extremities: no e/c/c BLE's, warm, +1 pedal pulses B DS: Data Vitals/I&O Vitals and I&O: Vital Signs Temperature 36.2 C L 08/03/18 11:54 Temperature Source Tympanic 08/03/18 11:54 Pulse 55 L 08/03/18 11:54 Pulse Rhythm Regular 08/02/18 21:02 Pulse 93 H 07/30/18 13:31 Respiratory Rate 19 08/03/18 11:54 Respiratory Effort Non-Labored 08/02/18 21:02 Respiratory Depth Normal 08/02/18 21:02 Respiratory Pattern Normal 08/02/18 21:02 Blood Pressure 122/53 L 08/03/18 11:54 Blood Pressure Mean 58 07/30/18 13:31 Blood Pressure Position Supine 07/30/18 10:24 Pulse Oximetry 98 08/03/18 11:54 Oxygen Delivery Method Room Air 08/03/18 11:54 Oxygen Flow Rate 0 08/03/18 11:54 Pain Level 0 07/31/18 10:32 Intake & Output 08/02/18 08/03/18 08/03/18 23:59 11:59 23:59 Intake Total 1680 / 4407.5 1440 / 1440 Output Total 1410 / 2710 1550 / 1550 Balance 270 / 1697.5 -110 / -110 Weight 83.4 kg Intake: IV 1100 / 2977.5 1000 / 1000 Oral 580 / 1430 440 / 440 Output: Urine 500 / 1450 550 / 550 Stool 910 / 1260 1000 / 1000 Other: Urine Color Light Mayi Yellow Urine Appearance Clear Clear Urine Odor None Normal Voiding Methods Urinal Urinal Completed studies during hospitalization [Text1]: CXR 07/30/18: No evidence of acute disease. CT abdomen/pelvis 07/31/18: Dilated loops of small bowel as described with air- fluid levels. The findings raise the question of a bowel obstruction. There does appear to be a transition in the right lower quadrant. Ileus cannot be excluded. Labs on day of discharge: Labs from last 24 hours 08/03/18 08/03/18 07:10 07:10 WBC 3.67 L RBC 2.96 L Hgb 9.2 L Hct 28.5 L MCV 96.3 H MCH 31.1 MCHC 32.3 RDW 16.7 H Plt Count 98 L MPV 11.8 H Immature Gran % 0.8 Neutrophils % 78.2 Lymphocytes % 10.6 Monocytes % 10.1 Eosinophils % 0.3 Basophils % 0.0 Absolute Neutrophils 2.87 Absolute Lymphocytes 0.39 L Absolute Monocytes 0.37 Absolute Eosinophils 0.01 Absolute Basophils 0.00 Sodium 137 Potassium 3.7 Chloride 106 Carbon Dioxide 24.6 Anion Gap 6.4 BUN 17 Creatinine 1.14 Estimated GFR/1.73 m2 >= 60.00 Glucose 94 Calcium 7.8 L Magnesium 1.6 L Preliminary micro results at discharge 07/30/18 13:20 Blood Culture - Preliminary Blood NO GROWTH 72 HOURS 07/30/18 13:31 Blood Culture - Preliminary Blood NO GROWTH 72 HOURS [facility] Medical History Seizure disorder (Chronic) Subdural hematoma (Resolved) Rheumatoid arthritis (Chronic 11/06/15) DEVORAH on CPAP (Chronic 11/06/15) Depression (Chronic 08/14/17) CKD (chronic kidney disease) stage 3, GFR 30-59 ml/min (Chronic 11/06/15) Arthur's disease (Chronic) H/O ulcerative colitis (Chronic) Asthma (Chronic) COPD (chronic obstructive pulmonary disease) (Chronic) Chronic deep vein thrombosis (DVT) (Chronic) Hypertension (Chronic) 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 Sister No problems noted. Brother No problems noted. Brother Diabetes ASCVD (arteriosclerotic cardiovascular disease) Brother No problems noted. Sister Diabetes Sister No problems noted. Other Arthritis Social History Smoking/Tobacco Use Status: Former Tobacco Use Alcohol Intake: never Drug use: Never Substance use type: does not use Do you feel safe at home: Yes Do you feel safe in your relationship?: Yes
--- NOTE | 2018-08-06 08:58 | INDS_ITS ---
Date of service: 08/03/18 PT Notes Inpatient Physical Therapy Discharge Summary Dates: 08/03/2018 Dates of Service: 07/31/2018 through 08/03/2018 This is a clinical summary of skilled PT services provided on the dates listed above. No charge was made in the completion of this documentation. Referring Doctor: Karen Mendoza MD PT Orders: PT CONSULT: Eval/treat Precautions: Fall. Contact precautions. Patient Profile/Admitting Diagnosis: Orders received for this 77-year-old male who presented to the ED on 07/30/2018 with chief complaint of weakness. Patient was diagnosed with septic shock, UTI, acute adrenal insufficiency, acute on chronic kidney disease, dehydration, and diarrhea. PMHX: Medical History Seizure disorder (Chronic) Subdural hematoma (Resolved) Rheumatoid arthritis (Chronic 11/06/15) DEVORAH on CPAP (Chronic 11/06/15) Depression (Chronic 08/14/17) CKD (chronic kidney disease) stage 3, GFR 30-59 ml/min (Chronic 11/06/15) [place]'s disease (Chronic) H/O ulcerative colitis (Chronic) Asthma (Chronic) COPD (chronic obstructive pulmonary disease) (Chronic) Chronic deep vein thrombosis (DVT) (Chronic) Hypertension (Chronic) 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) Abdominal wall fistula (Resolved) Surgical History Extraction of cataract (Chronic 07/28/16) Transurethral prostatectomy (Chronic 11/24/14) cystoureteroscopy,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) hernia repair (Chronic 04/08/99) repair retinal breaks (Chronic 12/24/03) transsphenoidal hypophysectomy (Chronic 11/15/93) Fracture, Closed Treatment (Resolved 02/15/16) Cholecystectomy (Inactive 02/15/16) Total colectomy (Inactive 09/25/97) Social History/Home Situation: [] Current Functional Limitations: [] Equipment Owned/DME: [] Subjective: NT Objective: General Observation: NT Mental Status:NT Pain: NT ROM: Right Upper Extremity: Shoulder Flexion WFL. Shoulder abduction WFL. Elbow flexion WFL. Wrist flexion WFL. Functional opening and closing of hand WFL. Left Upper Extremity: Shoulder Flexion WFL. Shoulder abduction WFL. Elbow flexion WFL. Wrist flexion WFL. Functional opening and closing of hand WFL. Right Lower Extremity: Hip flexion 0 to 100 degrees in supine, 0 to 70 degrees. Hip abduction 0 to 10 degrees. Knee flexion WFL. Ankle dorsiflexion WFL. Ankle plantarflexion WFL. Left Lower Extremity: Hip flexion 0 to 100 degrees in supine, 0 to 70 degrees. Hip abduction 0 to 10 degrees. Knee flexion WFL. Ankle dorsiflexion WFL. Ankle plantarflexion WFL. Strength: Right Upper Extremity: Shoulder flexors 4+/5. Shoulder abductors 4+ /5. Elbow flexors 4+/5. Elbow extensors 4+/5. Concrete Stone Finisher strong. Left Upper Extremity: Shoulder flexors 4+/5. Shoulder abductors 4+ /5. Elbow flexors 4+/5. Elbow extensors 4+/5. Concrete Stone Finisher strong. Right Lower Extremity: Hip flexors 3-/5. Hip abductors 3-/5. Knee flexors 3+/5. Knee extensors 3+/5. Ankle dorsiflexors 4/5. Ankle plantarflexors 4/5. Left Lower Extremity:Hip flexors 3-/5. Hip abductors 3-/5. Knee flexors 3+/5. Knee extensors 3+/5. Ankle dorsiflexors 4/5. Ankle plantarflexors 4/5. Sensation: Intact as to pain and pressure to bilateral LEs. Bed Mobility/Transfers: Rolling SBA Sit to supine SBA Sit to stand SBA Stand to sit SBA Bed to chair SBA Chair to bed SBA Gait: See [employer] TE[employer]IST notes on 08/03/2018. Balance: Static Sitting: Good Dynamic Sitting: Good Static Standing: Fair Dynamic Standing: Fair Assessment: Patient is a 77 year old male referred to physical therapy services with the diagnosis of generalized weakness from septic shock, UTI, acute adrenal insufficiency, acute on chronic kidney disease, dehydration, and diarrhea. Patient presents with clinical signs and symptoms consistent with current/admitting diagnoses that have resulted to mobility limitations, gait instability, generalized weakness, and impairment of motor control as demonstrated by the following impairment level findings: 1. Decreased strength to B LE major muscle groups 2. Impaired sitting/standing balance 3. Impaired activity tolerance Impairments are contributing to the following functional limitations: 1. Dependent bed mobility skills 2. Increased dependence with transfers 3. Inability to safely ambulate without assistive device and physical assistance 4. Increase completion time for mobility ADL performance 5. Increased fall risk 6. Inability to negotiate steps alone safely Goals: Goals X1 week 1. Supine-Sit independent NOT MET 2. Sit-Supine independent NOT MET 3. Sit-Stand independent NOT MET 4. Stand-Sit independent NOT MET 5. Bed-Chair independent NOT MET 6. Chair-Bed independent NOT MET 7. Independent gait on level surface with use of least restrictive device for at least 100 feet without report of pain nor dyspnea NOT MET 8. Independent with home exercise program NOT MET 9. Good static and dynamic standing balance/tolerance NOT MET Plan of Care/Treatment Plan: 1-2x/day, 7 days/week x 1 week. Plan of care has been reviewed with the [employer] TECHNOLOGIST providing the service under Physical Therapy direction. Initiate Physical Therapy intervention for strengthening, bed mobility, transfers, gait, stairs, balance training, use of assistive device. DISCHARGE RECOMMENDATIONS: Patient to return back to the [facility] on palliative care at highest mobility level. He will continue to benefit from SNF PT services to regain independent mobility level using 4WW. TREATMENT CODE/TIME: CA Thank you for this referral. Nery Hall, PT, DPT, CLT [facility]
== END 2018-08-03 13:25 | disposition skilled nursing facility (03) | DRG 871 ==
LOC: ER 13:02 → MS 13:53
PROVIDERS: Admitting Provider Internal Medicine; Emergency Provider Emergency Medicine; PCP Nurse Practitioner; Visit Provider Internal Medicine
DX: A41.9 Sepsis, unspecified organism (principal); R65.21 Severe sepsis with septic shock; N39.0 Urinary tract infection, site not specified; E27.49 Other adrenocortical insufficiency; N17.9 Acute kidney failure, unspecified; K94.19 Other complications of enterostomy; K56.7 Ileus, unspecified; K56.600 Partial intestinal obstruction, unspecified as to cause; N18.3 Chronic kidney disease, stage 3 (moderate); E86.0 Dehydration; R19.5 Other fecal abnormalities; R19.7 Diarrhea, unspecified; R33.9 Retention of urine, unspecified; G40.909 Epilepsy, unspecified, not intractable, without status epilepticus; M06.9 Rheumatoid arthritis, unspecified; G47.33 Obstructive sleep apnea (adult) (pediatric); Z66 Do not resuscitate; Z79.52 Long term (current) use of systemic steroids; J44.9 Chronic obstructive pulmonary disease, unspecified; I12.9 Hypertensive chronic kidney disease with stage 1 through stage 4 chronic kidney disease, or unspecified chronic kidney disease; Z87.891 Personal history of nicotine dependence; Z90.49 Acquired absence of other specified parts of digestive tract; R05 Cough
CPT/HCPCS: 36415; 36416; 51701; 80048; 80053; 82962; 83690; 87040; 87081; 87329; 87505; 93005; 94640; 96361; 96365; 96367; 97110; 97162; 97166; 97530; 97535; 99222; 99231; 99232; 99233; 99239; 99253; 99254; 99285; 99291; 71045; 74176; 81003; 81015; 82710; 83605; 83735; 84484; 85025; 87086; 87324; 87798; 93010; J0744; J1644; J1720; J3370; J8597; Q9967

== ENCOUNTER 2018-10-01 01:36 | Outpatient (RCR) | payer MEDICARE, OTHER, SELFPAY ==
[2018-10-01] MEDS: Denosumab 60 MG/ML SYR SC (10:20)
== END 2018-10-24 23:59 | disposition home or self-care (01) ==
LOC: INF 01:36
PROVIDERS: PCP Nurse Practitioner; Visit Provider Family Medicine
DX: M81.0 Age-related osteoporosis without current pathological fracture (principal); M85.80 Other specified disorders of bone density and structure, unspecified site
CPT/HCPCS: 96372; J0897

== ENCOUNTER 2018-11-14 11:23 | Outpatient (REF) | payer MEDICARE, OTHER, SELFPAY ==
[2018-11-14 11:57] LABS: ALT 24 U/L (12-78); AST 22 U/L (15-37); Albumin 2.3 g/dL (3.4-5.0); Alkaline Phosphatase 127 U/L (46-116); Anion Gap 9.8 mmol/L (3-11); BUN 16 mg/dL (7-18); Bilirubin, Total 0.6 mg/dL (0.2-1.0); CO2 25.2 mmol/L (21.0-32.0); CREATININE 1.24 mg/dL (0.70-1.30); Calcium 8.1 mg/dL (8.5-10.1); Chloride 106 mmol/L (98-107); Estimated GFR 56.68 (mL/min/1.73m2); Glucose 99 mg/dL (70-100); Sodium 141 mmol/L (136-145); Total Protein 7.1 g/dL (6.4-8.2)
== END 2018-11-14 11:43 ==
LOC: LBN 11:23
PROVIDERS: PCP Nurse Practitioner; Visit Provider Family Medicine
DX: M06.9 Rheumatoid arthritis, unspecified (principal); Z79.899 Other long term (current) drug therapy
CPT/HCPCS: 80048; 80076

== ENCOUNTER 2018-12-03 13:49 | Outpatient (REF) | payer MEDICARE, OTHER, SELFPAY ==
[2018-12-03 15:34] LABS: ALT 54 U/L (16-63); AST 54 U/L (15-37); Albumin 3.7 g/dL (3.4-5.0); Alkaline Phosphatase 146 U/L (46-116); Anion Gap 9.7 mmol/L (3-11); BUN 20 mg/dL (7-18); Bilirubin, Total 0.8 mg/dL (0.2-1.0); CO2 25.3 mmol/L (21.0-32.0); CREATININE 1.33 mg/dL (0.70-1.30); Calcium 8.4 mg/dL (8.5-10.1); Chloride 103 mmol/L (98-107); Estimated GFR 52.28 (mL/min/1.73m2); Glucose 99 mg/dL (70-100); Potassium 4.3 mmol/L (3.5-5.1); Sodium 138 mmol/L (136-145); Total Protein 7.2 g/dL (6.4-8.2); Vitamin B12 1341 pg/mL (193-986)
== END 2018-12-03 14:09 ==
LOC: LBN 13:49
PROVIDERS: PCP Nurse Practitioner; Visit Provider Nurse Practitioner Gerontology
DX: D51.8 Other vitamin B12 deficiency anemias (principal)
CPT/HCPCS: 80053; 82607

== ENCOUNTER 2018-12-19 13:41 | Outpatient (REF) | payer MEDICARE, OTHER, SELFPAY ==
[2018-12-19 14:38] LABS: HCT 36.8 % (40.0-50.0); HGB 11.9 g/dL (13.5-17.5); Mean Corp. HGB Concentration 32.3 g/dL (32.0-36.0); Mean Corpuscular Hemoglobin 30.4 pg (27.0-33.0); Mean Corpuscular Volume 93.9 fL (80-95); Mean Platelet Volume 12.2 fL (8.0-11.0); Platelet Count 109 x1000/uL (130-400); RBC 3.92 m/cumm (4.50-6.00); RBC Distribution Width 17.1 % (11.8-14.1); White Blood Cell Count 5.98 k/cumm (4.4-10.8)
[2018-12-19 14:44] LABS: ALT 39 U/L (16-63); AST 39 U/L (15-37); Albumin 3.7 g/dL (3.4-5.0); Alkaline Phosphatase 129 U/L (46-116); Anion Gap 9.4 mmol/L (3-11); BUN 29 mg/dL (7-18); Bilirubin, Total 0.8 mg/dL (0.2-1.0); CO2 22.6 mmol/L (21.0-32.0); CREATININE 1.78 mg/dL (0.70-1.30); Calcium 8.6 mg/dL (8.5-10.1); Chloride 101 mmol/L (98-107); Estimated GFR 37.35 (mL/min/1.73m2); Glucose 86 mg/dL (70-100); Potassium 4.6 mmol/L (3.5-5.1); Sodium 133 mmol/L (136-145); Total Protein 7.1 g/dL (6.4-8.2)
== END 2018-12-19 14:01 ==
LOC: LBN 13:41
PROVIDERS: PCP Nurse Practitioner; Referring Provider Family Medicine; Visit Provider Nurse Practitioner Gerontology
DX: R19.7 Diarrhea, unspecified (principal); R11.2 Nausea with vomiting, unspecified
CPT/HCPCS: 80053; 85027

== ENCOUNTER 2018-12-25 14:53 | Outpatient (REF) | payer MEDICARE, OTHER, SELFPAY ==
[2018-12-25 16:16] LABS: Anion Gap 10.7 mmol/L (3-11); BUN 46 mg/dL (7-18); CO2 22.3 mmol/L (21.0-32.0); CREATININE 1.96 mg/dL (0.70-1.30); Calcium 8.6 mg/dL (8.5-10.1); Chloride 98 mmol/L (98-107); Estimated GFR 33.42 (mL/min/1.73m2); Glucose 132 mg/dL (70-100); Potassium 5.9 mmol/L (3.5-5.1); Sodium 131 mmol/L (136-145); Vitamin B12 1645 pg/mL (193-986)
== END 2018-12-25 15:13 ==
LOC: LBN 14:53
PROVIDERS: PCP Nurse Practitioner; Referring Provider Nurse Practitioner Gerontology; Visit Provider Family Medicine
DX: D51.8 Other vitamin B12 deficiency anemias (principal); R63.4 Abnormal weight loss
CPT/HCPCS: 80048; 82607

== ENCOUNTER 2018-12-25 23:02 | Emergency (ER) | payer MEDICARE, OTHER, SELFPAY ==
[2018-12-25 23:07] VITALS: BP 115/56; PULSE 79; RESP 16; TEMP 36.7; O2SAT 97
--- NOTE | 2018-12-25 23:09 | ED.GENADUL_ITS ---
Discharge Plan Disposition Patient Disposition: HOME Condition: Improving Discharge Details Chief Complaint: Abd Prob Clinical Impression: Fatigue, Recent weight loss, Acute hyperkalemia, Adrenal insufficiency Primary Care Provider: Sheeba Morelos ED Provider: Darlene Gross Home Meds and New Rx's Prescriptions: Continued Symbicort 160-4.5 mcg/actuation HFA aerosol inhaler 1 puff Inhalation BID Qty: 3 RF: 3 Vimpat 100 mg tablet 100 mg PO BID Qty: 180 RF: 3 fludrocortisone 0.1 MG tablet 0.15 mg PO DAILY Qty: 90 RF: 3 folic acid 1 MG tablet 1 mg PO DAILY RF: 0 montelukast 10 MG tablet 10 mg PO DAILY Qty: 90 RF: 3 Prolia 60 MG/1 ML syringe 60 mg SQ q6 months RF: 0 (DME) BD Regular [place] 1 EACH needle 1 ea Miscellaneous monthly Qty: 12 RF: 0 epinephrine 0.3 MG/SYR auto-injector 0.3 mg Sub-Q PRN PRNRF: 0 ondansetron HCl 4 mg Tablet 4 mg PO DAILY RF: 0 ondansetron HCl 4 mg Tablet 4 mg PO .Q6H, PRN RF: 0 methotrexate sodium 2.5 mg Tablet 15 mg PO .QWEEK RF: 0 fluticasone propionate 50 mcg/actuation spray,suspension 2 spray NS HS RF: 0 hydrocortisone 5 mg Tablet 5 mg PO BID@0800,1700 RF: 0 loperamide [Imodium A-D] 2 mg Tablet 2 mg PO TID RF: 0 hydrocortisone 20 mg Tablet 20 mg PO DAILY RF: 0 cholecalciferol (vitamin D3) 5,000 unit Capsule 5,000 unit PO DAILY RF: 0 cyanocobalamin (vitamin B-12) 1,000 mcg/mL solution 1,000 mcg IM .Q 60 DAYS RF: 0 No Action famotidine 20 mg Tablet 20 mg PO DAILY RF: 0 mirtazapine 15 mg Tablet 15 mg PO .QHS RF: 0 multivitamin,tx-minerals Tablet 1 tab PO DAILY RF: 0 citalopram 20 mg tablet 10 mg PO DAILY RF: 0 Discharge Instructions Instructions: Arthur Disease (ED), Hyperkalemia (ED) Additional Instructions: Laboratory work-up today revealed elevated potassium as well as elevated creatinine. These levels did improve with IV fluids. Your fatigue, concern for weight loss, and electrolyte abnormalities may be related to adrenal insufficiency. You were given a dose of hydrocortisone 10 mg this morning at 5 AM. Based on prior history, you may need to have hydrocortisone dosing adjusted. Please be sure to discuss this with your primary care physician as soon as possible. Please be sure to drink plenty of fluids and maintain a healthy diet. Please contact your primary care physician to arrange follow-up. Return to the ER for any worsening or new concerning symptoms. Referrals: Sheeba Morelos NP [Primary Care Provider] - Discharge Data Discharge Date/Time-TO BE ENTERED AT DEPARTURE: 12/26/18 05:20 Medical Decision Making <PAUL Murphy - Last Filed: 12/26/18 23:45> Patient is a 78-year-old male, brought in via EMS, with chief complaint of nausea and vomiting. Reports for the past week has been feeling more fatigued than typical. Endorses general malaise and generalized weakness. He does not believe there is been any acute changes medications. Patient has history of ileus, acute adrenal insufficiency, CKD, urinary retention, subdural hematoma, asthma, RA, DEVORAH, malignant neoplasm of colon, gallstone pancreatitis, depression, Tj's, CHF, DVT, BPH, A. fib, ileostomy, Ivanhoe's, ulcerative colitis. Patient presents today with chief complaint of fatigue and nausea/vomiting. Reports is been going on for the past week. Endorses weight loss over the past week. Denies any fevers or chills. Patient is living in assisted care facility. States that his appetite has been diminished. He has been trying to stay hydrated. Has been using Zofran to help with his symptoms. Reports he has been having heartburn and some epigastric discomfort. He does not have any epigastric pain to palpation on exam.. He reports he is noted his stool output and his ileostomy has been more watery than typical. Has not had any blood. No blood in his urine. Denies any dysuria, back pain, increased frequency or urgency. Exam, patient appears nontoxic. He does appear fatigued and is holding an emesis bag. Patient is noted is noted to be slightly hypotensive at 115/56. This is typical for the patient. As the patient is endorsing some acid reflux, plan to give a GI cocktail. He has not had success with Zofran as far. Given the patient's age and his comorbidities, I am hesitant to use any other pharmacologic options to help with his nausea and concern for sedating the patient. At the end of my shift, labs are pending, care was transitioned to Dr. Angel for reassessment, final disposition laboratory evaluation. <Andrade Angel MD - Last Filed: 01/22/19 00:47> 00:10 -- Care signed out by PAUL Gross. Please see her documentation regarding initial ED presentation and course. Plan at signout was to reassess patient after GI cocktail and determine disposition. -- Screening ECG was done and reviewed and interpreted by me: Sinus rhythm with first-degree AV block, 74 bpm, MA interval 228, normal axis, RSR prime pattern in V1, QRS duration 91, nondiagnostic. -- Patient reassessed and notes continued fatigue and recent weight loss. No chest pain. No abdominal pain. UA reviewed and has hematuria - unclear etiology. Plan will be to follow up with PCP regarding this. Labs reviewed and mild hyperkalemia noted with potassium of 5.4. This is improved from earlier yesterday. Patient has no concerning ECG findings. Patient does have exacerbation of chronic kidney disease with creatinine of 2.0. I am concerned symptoms and electrolyte abnormalities may be related to adrenal insufficiency. He is taking hydrocortisone 5mg BID and 20mg once a day. He may benefit from increased and or altered dosing including thrice daily (ie. 10/5/2.5 mg). Patient thought he was supposed to be taking 30mg daily. -- Patient was administered LR 1L and NS 1L. Patient reassessed and has remained stable. Repeat chemistry reveals improved Cr and improved potassium to within normal range. Patient was given hydrocortisone 10mg at 5am. Patient was encouraged to maintain adequate hydration and eat a healthy diet. Plan will be for him to return to [facility]. He will need close follow-up with PCP at nursing facility - consideration should be made to adjust hydrocortisone dosing based on his prior history and prior recommendations from endocrinology. I called and spoke with patient's nurse at [facility] who notes that patient has been on hydrocortisone 20mg in July. Unclear as to why dosing changes made. She notes that a physician will be available to see the patient today and review dosing. Disposition decision was made weighing the risks and benefits of hospitalization versus outpatient treatment, the risk for further decompensation, and the patient's wishes. The patient was stable and requested discharge. Prior to discharge, my usual and customary return precautions were reviewed with the patient - this included follow-up instructions and reason to return to the emergency department if condition worsens, does not improve as expected, or other new concerns arise. HPI <PAUL Murphy - Last Filed: 12/26/18 23:45> General Mode of arrival: EMS . Date/Time Provider Initiated Documentation: 12/25/18 23:09 . Limitations to Documentation: no limitations . Information obtained by: patient, EMS and RN notes reviewed . History of Present Illness 78 year old M presents to the emergency department with the chief complaint of nausea/vomiting and fatigue, described as moderate, and is localized to the abdomen. Patient reports no radiation. Patient started experiencing this week(s) (1) and it has been constant. No relieving factors improve symptom(s), No exacerbating factors reported . Patient notes loss of appetite and weakness (generalized); denies chest pain, cough, diaphoresis, fever/chills, headaches, nausea/vomiting, rash and shortness of breath. Patient did receive the following treatments prior to arrival, none Related Data Home Medications Medication Instructions Recorded Confirmed epinephrine 0.3 mg SUB-Q PRN PRN 10/07/14 01/08/19 fludrocortisone 0.15 mg PO DAILY #90 tab-cap 03/17/16 01/08/19 folic acid 1 mg PO DAILY 10/24/16 01/08/19 montelukast 10 mg PO DAILY #90 tab-cap 01/03/17 01/08/19 Prolia 60 mg SQ q6 months 03/15/17 01/08/19 BD Regular [place] #12 ea 11/16/17 12/26/18 budesonide-formoterol HFA 160 1 puff INHALATION BID #3 canister 02/07/18 01/08/19 mcg-4.5 mcg/actuation aerosol inhaler cholecalciferol (vitamin D3) 5,000 unit PO DAILY 07/30/18 01/08/19 cyanocobalamin (vitamin B-12) 1,000 mcg IM .Q 60 DAYS 07/30/18 01/08/19 fluticasone propionate 2 spray NS HS 07/30/18 01/08/19 hydrocortisone 5 mg PO BID@0800,1700 07/30/18 01/08/19 hydrocortisone 20 mg PO DAILY 07/30/18 01/08/19 loperamide [Imodium A-D] 2 mg PO TID 07/30/18 01/08/19 methotrexate sodium 15 mg PO .QWEEK 07/30/18 01/08/19 ondansetron HCl 4 mg PO .Q6H, PRN 07/30/18 01/08/19 ondansetron HCl 4 mg PO DAILY 07/30/18 01/08/19 lacosamide 100 mg tablet 100 mg PO BID #180 tab 11/14/18 01/08/19 citalopram 10 mg PO DAILY 01/02/19 01/08/19 famotidine 20 mg PO DAILY 01/02/19 01/08/19 mirtazapine 15 mg PO .QHS 01/02/19 01/08/19 multivitamin,tx-minerals 1 tab PO DAILY 01/02/19 01/08/19 Previous Rx's Medication Instructions Recorded montelukast 10 mg PO DAILY #90 tab-cap 01/03/17 BD Regular [place] #12 ea 11/16/17 budesonide-formoterol HFA 160 1 puff INHALATION BID #3 canister 02/07/18 mcg-4.5 mcg/actuation aerosol inhaler lacosamide 100 mg tablet 100 mg PO BID #180 tab 11/14/18 Allergies Allergy/AdvReac Type Severity Reaction Status Date / Time latex Allergy Intermediate rash, Verified 01/02/19 09:54 itching plasma protein fraction Allergy Intermediate Hives Verified 01/02/19 09:54 acebutolol Allergy Unknown Verified 01/02/19 09:54 promethazine Allergy Unknown Verified 01/02/19 09:54 pseudoephedrine Allergy Unknown Verified 01/02/19 09:54 terazosin Allergy Unknown Verified 01/02/19 09:54 tramadol HCl [From Ultracet] Allergy Unknown Verified 01/02/19 09:54 ceftriaxone Allergy Unverified 01/02/19 09:54 chlorpheniramine Allergy Unverified 01/02/19 09:54 venom-honey bee Allergy Verified 01/02/19 09:54 [bee venom (honey bee)] ferrous sulfate AdvReac Severe Stomach Verified 01/02/19 09:54 aches tamsulosin HCl [From Flomax] AdvReac Severe Dizziness/L Verified 01/02/19 09:54 ightheade Antihistamines - Alkylamine AdvReac Unknown affected Verified 01/02/19 09:54 prostate cefuroxime AdvReac Unknown daark urine Verified 01/02/19 09:54 plasma human Allergy Intermediate Hives Uncoded 01/02/19 09:54 General SANTOSH: 1 Review of Systems <PAUL Murphy - Last Filed: 12/26/18 23:45> Constitutional Constitutional: Reports as per HPI, Denies chills, Reports fatigue, Denies fever(s), Denies headache(s), Reports malaise and Reports poor appetite ENT Ears, Nose, Mouth, and Throat: Denies headache(s) Cardiovascular Cardiovascular: Reports as per HPI, Denies chest pain and Denies dyspnea Respiratory Respiratory: Reports as per HPI, Denies cough and Denies dyspnea Gastrointestinal Gastrointestinal: Reports as per HPI, Denies abdominal pain, Reports change in stool character (has been more liquidy than typical), Reports nausea and Reports vomiting Genitourinary Genitourinary: Denies system reviewed and no additional complaints, except as docu (patient denies any change in urinary habits) Musculoskeletal Musculoskeletal: Reports as per HPI and Denies back pain Integumentary/Breasts Skin/Breast: Reports as per HPI and Denies rash Neurologic Neurologic: Reports as per HPI and Denies headache(s) Endocrine Endocrine: Reports fatigue PFSH <PAUL Murphy - Last Filed: 12/26/18 23:45> Medical History 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 Asthma (Chronic) Chronic deep vein thrombosis (DVT) (Chronic) CKD (chronic kidney disease) stage 3, GFR 30-59 ml/min (Chronic 11/06/15) COPD (chronic obstructive pulmonary disease) (Chronic) Depression (Chronic 08/14/17) H/O ulcerative colitis (Chronic) Hypertension (Chronic) 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) DEVORAH on CPAP (Chronic 11/06/15) Rheumatoid arthritis (Chronic 11/06/15) Seizure disorder (Chronic) Subdural hematoma (Resolved) Surgical History Cholecystectomy (Inactive 02/15/16) [facility] [place] cystoureteroscopy,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) with L stent insertion Extraction of cataract (Chronic 07/28/16) R eye surgeon Amanda Ochoa MD Fracture, Closed Treatment (Resolved 02/15/16) [facility] [place]--Distal Rt Radius Fx hernia repair (Chronic 04/08/99) parastomal R/trelex mesh repair retinal breaks (Chronic 12/24/03) Total colectomy (Inactive 09/25/97) transsphenoidal hypophysectomy (Chronic 11/15/93) Transurethral prostatectomy (Chronic 11/24/14) Social History Smoking/Tobacco Use Status: Former Tobacco Use Alcohol Intake: never Drug use: Never Substance use type: does not use Do you feel safe at home: Yes Do you feel safe in your relationship?: Yes Exam <PAUL Murphy - Last Filed: 12/26/18 23:45> Const General: cooperative, healthy appearing, comfortable, no acute distress and well developed Nutritional Appearance: average body habitus and well nourished Orientation: alert and awake [facility] Head: normal to inspection Mouth: moist mucous membranes Resp Effort & Inspection: normal respiratory effort, able to speak in complete sentences and no respiratory distress Auscultation: clear to auscultation bilaterally, no rales, no rhonchi and no wheezes Cardio Rate: regular rate Rhythm: regular rhythm Heart Sounds: S1 normal and S2 normal GI Inspection: normal to inspection, no edema, non-distended and other (ileostomy with liquidy stool noted) Palpation: soft, no hepatosplenomegaly, no guarding, not rigid and nontender Percussion: normal to percussion Auscultation: normal bowel sounds Back/Spine/Pelvis Back: no CVA tenderness Skin General skin exam: no rashes or lesions noted Trauma: no lacerations or abrasions Neuro General: alert and awake Cognition: normal cognition Speech: speech normal Gait: normal gait Psych Appearance: grossly normal and well kempt Mental Status: mental status grossly normal Speech and Movement: speech and movement normal
[2018-12-25 23:29] LABS: Abs Immature Grans 0.04 k/cumm (0.0-0.09); HCT 35.6 % (40.0-50.0); HGB 11.9 g/dL (13.5-17.5); Mean Corp. HGB Concentration 33.4 g/dL (32.0-36.0); Mean Corpuscular Hemoglobin 30.5 pg (27.0-33.0); Mean Corpuscular Volume 91.3 fL (80-95); Platelet Count 134 x1000/uL (130-400); RBC Distribution Width 16.8 % (11.8-14.1)
[2018-12-25 23:49] LABS: ALT 64 U/L (16-63); AST 55 U/L (15-37); Albumin 3.6 g/dL (3.4-5.0); Alkaline Phosphatase 148 U/L (46-116); Anion Gap 11.3 mmol/L (3-11); BUN 43 mg/dL (7-18); Bilirubin, Total 0.9 mg/dL (0.2-1.0); CO2 19.7 mmol/L (21.0-32.0); Calcium 8.3 mg/dL (8.5-10.1); Chloride 99 mmol/L (98-107); Estimated GFR 32.65 (mL/min/1.73m2); Glucose 97 mg/dL (70-100); Magnesium 2.3 mg/dL (1.8-2.4); Potassium 5.4 mmol/L (3.5-5.1); Sodium 130 mmol/L (136-145); Troponin I < 0.05 ng/mL (0.00-0.06)
[2018-12-25 23:57] LABS: Diff Comment Manual Differential
[2018-12-25 23:58] LABS: Absolute Eosinophil Count 0.08 k/cumm (0.0-0.7); Absolute Lymphocyte Count 1.01 k/cumm (1.2-3.4); Absolute Monocyte Count 1.33 k/cumm (0.11-0.7); Absolute Neutrophil Count 5.38 k/cumm (1.2-6.7); Promyelocytes % 0 %
[2018-12-25 23:59] LABS: RBC Morphology Normal
[2018-12-26 03:05] LABS: Bilirubin Negative (Negative); Blood Moderate (Negative); Clarity Clear (Clear); Glucose Negative (Negative); Ketones Negative (Negative); Leukocyte Esterase Small (Negative); Nitrite Negative (Negative); Specific Gravity 1.015 (1.005-1.025); Urobilinogen 0.2 EU/dL (Up TO 0.2); pH 5.5 (5-8)
[2018-12-26 03:10] LABS: Bacteria Rare HPF (Negative); C & S Indicated? Yes; Casts Negative LPF (Negative); Crystals Negative HPF (Negative); Epithelial Cells Rare HPF (Negative); Mucus Negative (Negative); RBC 0-2 (0-2); WBC >50 HPF (0-5)
[2018-12-26 04:15] LABS: BUN 37 mg/dL (7-18); CREATININE 1.67 mg/dL (0.70-1.30); Calcium 7.6 mg/dL (8.5-10.1); Chloride 103 mmol/L (98-107); Glucose 85 mg/dL (70-100); Potassium 4.9 mmol/L (3.5-5.1); Sodium 133 mmol/L (136-145)
[2018-12-26] MEDS: Hydrocortisone 10 MG TAB PO (05:01)
[2018-12-26 05:04] VITALS: BP 109/53; PULSE 79; RESP 14; TEMP 36.6; O2SAT 98
[2018-12-26 05:24] VITALS: BP 109/53; PULSE 79; RESP 14; TEMP 36.6; O2SAT 98
== END 2018-12-26 05:20 | disposition home or self-care (01) ==
PROVIDERS: Student in an Organized Health Care Education/Training Program; Emergency Provider Physician Assistant; PCP Nurse Practitioner
DX: R53.83 Other fatigue (principal); R63.4 Abnormal weight loss; E87.5 Hyperkalemia; E27.40 Unspecified adrenocortical insufficiency; J44.9 Chronic obstructive pulmonary disease, unspecified; I12.9 Hypertensive chronic kidney disease with stage 1 through stage 4 chronic kidney disease, or unspecified chronic kidney disease; N18.3 Chronic kidney disease, stage 3 (moderate); Z87.891 Personal history of nicotine dependence
CPT/HCPCS: 36415; 80048; 80053; 87077; 99283; 81003; 81015; 83605; 83735; 84484; 85025; 87086

== ENCOUNTER 2019-01-01 10:59 | Outpatient (REF) | payer MEDICARE, OTHER, SELFPAY ==
[2019-01-01 11:37] LABS: Abs Immature Grans 0.06 k/cumm (0.0-0.09); Absolute Basophil Count 0.01 k/cumm (0.0-0.2); Absolute Eosinophil Count 0.17 k/cumm (0.0-0.7); Absolute Lymphocyte Count 0.79 k/cumm (1.2-3.4); Absolute Monocyte Count 0.57 k/cumm (0.11-0.7); Absolute Neutrophil Count 6.99 k/cumm (1.2-6.7); Basophils % 0.1; HCT 38.7 % (40.0-50.0); HGB 12.4 g/dL (13.5-17.5); Immature Grans % 0.7; Lymphocytes % 9.2; Mean Corpuscular Hemoglobin 30.3 pg (27.0-33.0); Mean Corpuscular Volume 94.6 fL (80-95); Mean Platelet Volume 11.6 fL (8.0-11.0); Monocytes % 6.6; Neutrophils % 81.4; Platelet Count 206 x1000/uL (130-400); RBC 4.09 m/cumm (4.50-6.00); RBC Distribution Width 17.2 % (11.8-14.1); White Blood Cell Count 8.59 k/cumm (4.4-10.8)
[2019-01-01 12:30] LABS: ESR 53 mm/hr (1-20)
[2019-01-01 12:41] LABS: ALT 69 U/L (16-63); AST 48 U/L (15-37); Alkaline Phosphatase 153 U/L (46-116); Anion Gap 13.9 mmol/L (3-11); BUN 41 mg/dL (7-18); Bilirubin, Total 0.7 mg/dL (0.2-1.0); CO2 18.1 mmol/L (21.0-32.0); CREATININE 1.98 mg/dL (0.70-1.30); Chloride 103 mmol/L (98-107); Estimated GFR 33.03 (mL/min/1.73m2); Glucose 148 mg/dL (70-100); Lipase 663 U/L (73-393); Sodium 135 mmol/L (136-145); Total Protein 7.9 g/dL (6.4-8.2)
[2019-01-01 12:47] LABS: Potassium 6.3 mmol/L (3.5-5.1)
[2019-01-02 10:04] LABS: CEA 0.9 ng/ml
== END 2019-01-01 11:19 ==
LOC: LBN 10:59
PROVIDERS: PCP Family Medicine; Referring Provider Nurse Practitioner Gerontology; Visit Provider Family Medicine
DX: N18.9 Chronic kidney disease, unspecified (principal); D64.9 Anemia, unspecified; E27.49 Other adrenocortical insufficiency; R56.9 Unspecified convulsions; Z85.038 Personal history of other malignant neoplasm of large intestine
CPT/HCPCS: 80053; 83690; 85652; 82378; 85025

== ENCOUNTER 2019-01-02 09:44 | Emergency (ER) | payer MEDICARE, OTHER, SELFPAY ==
[2019-01-02] VITALS (79 sets, daily range): BP systolic 93–134; BP diastolic 44–76; PULSE 64–112; RESP 11–28; TEMP 36.9; O2SAT 94–100
--- NOTE | 2019-01-02 10:01 | ED.GENADUL_ITS ---
Discharge Plan Disposition Patient Disposition: HOME Condition: Stable Discharge Details Chief Complaint: GenMedical Clinical Impression: UTI (urinary tract infection), Fatigue, Hyperkalemia Primary Care Provider: Sheeba Best ED Provider: Sara Bartlett Home Meds and New Rx's Prescriptions: New nitrofurantoin monohyd/m-cryst [Macrobid] 100 mg capsule 100 mg PO BID 5 Days Qty: 10 RF: 0 Continued Symbicort 160-4.5 mcg/actuation HFA aerosol inhaler 1 puff Inhalation BID Qty: 3 RF: 3 Vimpat 100 mg tablet 100 mg PO BID Qty: 180 RF: 3 fludrocortisone 0.1 MG tablet 0.15 mg PO DAILY Qty: 90 RF: 3 folic acid 1 MG tablet 1 mg PO DAILY RF: 0 montelukast 10 MG tablet 10 mg PO DAILY Qty: 90 RF: 3 Prolia 60 MG/1 ML syringe 60 mg SQ q6 months RF: 0 (DME) BD Regular Bevel [place] 1 EACH needle 1 ea Miscellaneous monthly Qty: 12 RF: 0 epinephrine 0.3 MG/SYR auto-injector 0.3 mg Sub-Q PRN PRNRF: 0 ondansetron HCl 4 mg Tablet 4 mg PO DAILY RF: 0 ondansetron HCl 4 mg Tablet 4 mg PO .Q6H, PRN RF: 0 methotrexate sodium 2.5 mg Tablet 15 mg PO .QWEEK RF: 0 fluticasone propionate 50 mcg/actuation spray,suspension 2 spray NS HS RF: 0 hydrocortisone 5 mg Tablet 5 mg PO BID@0800,1700 RF: 0 loperamide [Imodium A-D] 2 mg Tablet 2 mg PO TID RF: 0 hydrocortisone 20 mg Tablet 20 mg PO DAILY RF: 0 cholecalciferol (vitamin D3) 5,000 unit Capsule 5,000 unit PO DAILY RF: 0 cyanocobalamin (vitamin B-12) 1,000 mcg/mL solution 1,000 mcg IM .Q 60 DAYS RF: 0 famotidine 20 mg Tablet 20 mg PO DAILY RF: 0 mirtazapine 15 mg Tablet 15 mg PO .QHS RF: 0 multivitamin,tx-minerals Tablet 1 tab PO DAILY RF: 0 citalopram 20 mg tablet 10 mg PO DAILY RF: 0 Discharge Instructions Instructions: Urinary Tract Infection in Men (ED), Hyperkalemia (ED), Fatigue (ED) Additional Instructions: Take antibiotics until finished. Drink plenty of fluids. Follow-up with the primary care doctor at the [facility] tomorrow. Return to the emergency department if you develop any worsening or new concerning symptoms. Discharge Data Discharge Date/Time-TO BE ENTERED AT DEPARTURE: 01/02/19 18:40 Discharge Physician: Sara Bartlett Medical Decision Making 78yo M w/ a h/o colon ca and ileostomy, COPD, depression, seizure, subdural hematoma who presents with fatigue for the past few weeks and for evaluation per PCP at the [facility] for elevated potassium of 6.3 and lipase of 663 per labs drawn yesterday and for a CT abdomen and pelvis which is ordered for next Monday as outpatient. Patient has no complaints of fever, vomiting or abdominal pain. He states his only complaint is fatigue. Vitals within normal limits. Suspect possibly chronic pancreatitis. EKG done which notes a rate of 70, sinus with no acute ST-T wave ischemic changes or evidence of hyperkalemia. Do not see any indication for acute treatment of hyperkalemia. Labs reviewed and note a normal white blood cell count, potassium improved to 6.2, creatinine slightly worse from 1.98 to 2.05 w/ GFR 31. Troponin negative. Lipase improved to 454. Possible his hyperkalemia is due to his worsening renal function. Review of his medications do not note any side effects causing hyperkalemia. We will give a small dose of Kayexalate. We will do a CT with p.o. contrast only. 1500 --CT negative for acute findings. UA resuts c/w UTI. Will treat with macrobid. He is allergic to ceftriaxone and there is an interaction of levaquin with his meds. 1600 -- Repeat potassium now slightly up trending to 6.6. Repeat EKG done and no acute change. Will give albuterol, insulin, bicarbonate to help lower potassium. Do not see any indication for calcium as there is no evidence of cardiac instability. Case discussed with Dr. Galindo who is in agreement with treatment plan at this time. She states if potassium is less than 6, can discharge back to the [facility] and does not see an indication for admission. 1745 --repeat potassium 4.8. Patient was able to eat a tray of food and has no acute complaints. Will discharge back to the [facility]. Patient instructed to return here with any worsening or new concerning symptoms. Medical Records Medical records reviewed: Yes I reviewed the patient's medical records. Imaging Data Radiologic Study: Radiologist's impression: CT ABDOMEN AND PELVIS WO CLINICAL HISTORY: fatigue, elevated lipase, r/o acute pancreatitis. TECHNIQUE: The study was carried out with oral contrast enhancement. IV contrast was not administered due to renal function. COMPARISON: CT ABDOMEN AND PELVIS WO from 07/31/2018 FINDINGS: Compared with the previous study of 07/31/2018, atelectatic changes are identified in the lung bases. Liver and spleen appear intact. Pancreas is unremarkable. There is nothing to suggest acute pancreatitis. The patient is status post cholecystectomy. There is no evidence of biliary dilatation. The left kidney is intact with no evidence of nephrolithiasis or hydronephrosis. 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 Again noted is a nonobstructing 1 cm calculus in the upper pole of the right kidney. Renal cysts are also again seen. The bladder is intact. A left lower quadrant ostomy identified. There is no evidence of bowel obstruction. There is no evidence of free air or fluid in the intraperitoneal space. There is no evidence of an intra-abdominal or pelvic mass or adenopathy. There is no evidence of an aortic aneurysm. Degenerative changes are demonstrated throughout the spine. Again noted are compression deformities of T12, L1 and L2. IMPRESSION: There is no evidence of pancreatitis. No acute abnormality is demonstrated in the abdomen or pelvis. Lab Data Lab results reviewed: Yes I reviewed the patient's lab results. Labs: 01/02/19 11:07 Urine - Reflex from Ua Urine Culture - Pending Laboratory Tests Range/Units 01/02/19 01/02/19 01/02/19 09:56 09:56 11:07 WBC (4.4-10.8) k/cumm 9.68 RBC (4.50-6.00) m/cumm 3.90 L Hgb (13.5-17.5) g/dL 11.6 L Hct (40.0-50.0) % 36.3 L MCV (80-95) fL 93.1 MCH (27.0-33.0) pg 29.7 MCHC (32.0-36.0) g/dL 32.0 RDW (11.8-14.1) % 17.3 H Plt Count (130-400) x1000/uL 168 MPV (8.0-11.0) fL 10.8 Immature Gran % See Differential Neutrophils % 76.0 Lymphocytes % 4.0 Monocytes % 16.0 Eosinophils % 3.0 Basophils % 0.0 Metamyelocytes % % 1.0 Absolute Neutrophils (1.2-6.7) k/cumm 7.36 H Absolute Lymphocytes (1.2-3.4) k/cumm 0.39 L Absolute Monocytes (0.11-0.7) k/cumm 1.55 H Absolute Eosinophils (0.0-0.7) k/cumm 0.29 Absolute Basophils (0.0-0.2) k/cumm 0.00 Differential Comment Manual differential RBC Morphology See below Polychromasia Present Anisocytosis 2+ Sodium (136-145) mmol/L 132 L Potassium (3.5-5.1) mmol/L 6.2 H* Chloride (98-107) mmol/L 101 Carbon Dioxide (21.0-32.0) mmol/L 21.2 Anion Gap (3-11) mmol/L 9.8 BUN (7-18) mg/dL 41 H Creatinine (0.70-1.30) mg/dL 2.05 H Estimated GFR/1.73 m2 (mL/min/1.73m2) 31.73 Glucose (70-100) mg/dL 108 H Calcium (8.5-10.1) mg/dL 8.8 Magnesium (1.8-2.4) mg/dL 1.8 Total Bilirubin (0.2-1.0) mg/dL 1.0 AST (15-37) U/L 43 H ALT (16-63) U/L 59 Alkaline Phosphatase (46-116) U/L 132 H Troponin I (0.00-0.06) ng/mL < 0.05 Total Protein (6.4-8.2) g/dL 7.9 Albumin (3.4-5.0) g/dL 3.6 Lipase (73-393) U/L 454 H Urine Color (Yellow) Yellow Urine Clarity (Clear) Sl cloudy Urine pH (5-8) 5.0 Ur Specific [place] (1.005-1.025) 1.015 Urine Protein (Negative) mg/dL 30 H Urine Ketones (Negative) mg/dL Negative Urine Blood (Negative) Moderate H Urine Nitrite (Negative) Negative Urine Bilirubin (Negative) Negative Urine Urobilinogen (Up TO 0.2) EU/dL 0.2 Ur Leukocyte Esterase (Negative) Moderate H Urine RBC Not Applicable Urine WBC (0-5) HPF >50 Ur Epithelial Cells Not Applicable Urine Crystals Not Applicable Urine Bacteria Not Applicable Urine Mucus Not Applicable Urine Other (Negative) Moderate yeast Ur Culture Indicated? Yes Urine Glucose (Negative) mg/dL Negative Range/Units 01/02/19 01/02/19 14:16 16:55 WBC (4.4-10.8) k/cumm RBC (4.50-6.00) m/cumm Hgb (13.5-17.5) g/dL Hct (40.0-50.0) % MCV (80-95) fL MCH (27.0-33.0) pg MCHC (32.0-36.0) g/dL RDW (11.8-14.1) % Plt Count (130-400) x1000/uL MPV (8.0-11.0) fL Immature Gran % Neutrophils % Lymphocytes % Monocytes % Eosinophils % Basophils % Metamyelocytes % % Absolute Neutrophils (1.2-6.7) k/cumm Absolute Lymphocytes (1.2-3.4) k/cumm Absolute Monocytes (0.11-0.7) k/cumm Absolute Eosinophils (0.0-0.7) k/cumm Absolute Basophils (0.0-0.2) k/cumm Differential Comment RBC Morphology Polychromasia Anisocytosis Sodium (136-145) mmol/L 129 L 135 L Potassium (3.5-5.1) mmol/L 6.6 H* 4.8 D Chloride (98-107) mmol/L 100 101 Carbon Dioxide (21.0-32.0) mmol/L 20.5 L 23.8 Anion Gap (3-11) mmol/L 8.5 10.2 BUN (7-18) mg/dL 35 H 34 H Creatinine (0.70-1.30) mg/dL 1.79 H 1.90 H Estimated GFR/1.73 m2 (mL/min/1.73m2) 37.11 34.64 Glucose (70-100) mg/dL 94 129 H Calcium (8.5-10.1) mg/dL 8.0 L 8.1 L Magnesium (1.8-2.4) mg/dL Total Bilirubin (0.2-1.0) mg/dL AST (15-37) U/L ALT (16-63) U/L Alkaline Phosphatase (46-116) U/L Troponin I (0.00-0.06) ng/mL Total Protein (6.4-8.2) g/dL Albumin (3.4-5.0) g/dL Lipase (73-393) U/L Urine Color (Yellow) Urine Clarity (Clear) Urine pH (5-8) Ur Specific [place] (1.005-1.025) Urine Protein (Negative) mg/dL Urine Ketones (Negative) mg/dL Urine Blood (Negative) Urine Nitrite (Negative) Urine Bilirubin (Negative) Urine Urobilinogen (Up TO 0.2) EU/dL Ur Leukocyte Esterase (Negative) Urine RBC Urine WBC (0-5) HPF Ur Epithelial Cells Urine Crystals Urine Bacteria Urine Mucus Urine Other (Negative) Ur Culture Indicated? Urine Glucose (Negative) mg/dL ECG Data Attestation: I personally reviewed and interpreted this ECG (s) as follows: Interpretation: #1 -- Rate of 70, sinus, first-degree block, T wave inversion in aVL, no acute ST elevation or depression. CT 244. QTc 391. QRS 96. #2 --Rate of 69, sinus, first-degree block, T wave inversion in aVL, no acute ST elevation or depression. CT 250. QTc 4 1. QRS 88. HPI General Mode of arrival: ambulatory . Date/Time Provider Initiated Documentation: 01/02/19 09:53 . Limitations to Documentation: no limitations . Information obtained by: patient . HPI Narrative: Patient is a 78yo M who presents to the [facility] w/ a h/o colon ca and ileostomy, COPD, depression, seizure, subdural hematoma who presents to the ED with a complaint of fatigue for the past few weeks as well as abnormal labs per his PCP. Dr. Adame called to state that patient had a potassium of 6.3 and a lipase of 663 per labs drawn yesterday. She states he has a CT abdomen and pelvis ordered for next Monday but she is sending him to the ED for treatment of his hyperkalemia and for stat CT abdomen and pelvis. She states that patient may not require admission to the hospital. Patient has no complaints of fever, chest pain, shortness of breath, dizziness, vomiting or abdominal pain or urinary symptoms. He states his only complaint is fatigue. Related Data Home Medications Medication Instructions Recorded Confirmed epinephrine 0.3 mg SUB-Q PRN PRN 10/07/14 12/26/18 fludrocortisone 0.15 mg PO DAILY #90 tab-cap 03/17/16 01/02/19 folic acid 1 mg PO DAILY 10/24/16 01/02/19 montelukast 10 mg PO DAILY #90 tab-cap 01/03/17 01/02/19 Prolia 60 mg SQ q6 months 03/15/17 01/02/19 BD Regular Bevel [place] #12 ea 11/16/17 12/26/18 budesonide-formoterol HFA 160 1 puff INHALATION BID #3 canister 02/07/18 01/02/19 mcg-4.5 mcg/actuation aerosol inhaler cholecalciferol (vitamin D3) 5,000 unit PO DAILY 07/30/18 01/02/19 cyanocobalamin (vitamin B-12) 1,000 mcg IM .Q 60 DAYS 07/30/18 01/02/19 fluticasone propionate 2 spray NS HS 07/30/18 01/02/19 hydrocortisone 5 mg PO BID@0800,1700 07/30/18 01/02/19 hydrocortisone 20 mg PO DAILY 07/30/18 01/02/19 loperamide [Imodium A-D] 2 mg PO TID 07/30/18 01/02/19 methotrexate sodium 15 mg PO .QWEEK 07/30/18 01/02/19 ondansetron HCl 4 mg PO .Q6H, PRN 07/30/18 01/02/19 ondansetron HCl 4 mg PO DAILY 07/30/18 01/02/19 lacosamide 100 mg tablet 100 mg PO BID #180 tab 11/14/18 01/02/19 citalopram 10 mg PO DAILY 01/02/19 01/02/19 famotidine 20 mg PO DAILY 01/02/19 01/02/19 mirtazapine 15 mg PO .QHS 01/02/19 01/02/19 multivitamin,tx-minerals 1 tab PO DAILY 01/02/19 01/02/19 nitrofurantoin monohyd/m-cryst 100 mg PO BID 5 Days #10 cap 01/02/19 [Macrobid] Previous Rx's Medication Instructions Recorded montelukast 10 mg PO DAILY #90 tab-cap 01/03/17 BD Regular Bevel [place] #12 ea 11/16/17 budesonide-formoterol HFA 160 1 puff INHALATION BID #3 canister 02/07/18 mcg-4.5 mcg/actuation aerosol inhaler lacosamide 100 mg tablet 100 mg PO BID #180 tab 11/14/18 nitrofurantoin monohyd/m-cryst 100 mg PO BID 5 Days #10 cap 01/02/19 [Macrobid] Allergies Allergy/AdvReac Type Severity Reaction Status Date / Time latex Allergy Intermediate rash, Verified 01/02/19 09:54 itching plasma protein fraction Allergy Intermediate Hives Verified 01/02/19 09:54 acebutolol Allergy Unknown Verified 01/02/19 09:54 promethazine Allergy Unknown Verified 01/02/19 09:54 pseudoephedrine Allergy Unknown Verified 01/02/19 09:54 terazosin Allergy Unknown Verified 01/02/19 09:54 tramadol HCl [From Ultracet] Allergy Unknown Verified 01/02/19 09:54 ceftriaxone Allergy Unverified 01/02/19 09:54 chlorpheniramine Allergy Unverified 01/02/19 09:54 venom-honey bee Allergy Verified 01/02/19 09:54 [bee venom (honey bee)] ferrous sulfate AdvReac Severe Stomach Verified 01/02/19 09:54 aches tamsulosin HCl [From Flomax] AdvReac Severe Dizziness/L Verified 01/02/19 09:54 ightheade Antihistamines - Alkylamine AdvReac Unknown affected Verified 01/02/19 09:54 prostate cefuroxime AdvReac Unknown daark urine Verified 01/02/19 09:54 plasma human Allergy Intermediate Hives Uncoded 01/02/19 09:54 General Stated Complaint: GenMedical SANTOSH: 3 Review of Systems Review of Systems ROS Unobtainable: All systems reviewed & are unremarkable except as noted in HPI and below Constitutional Constitutional: Reports as per HPI, Denies chills, Reports fatigue and Denies fever(s) Eyes Eyes: Denies blurry vision ENT Ears, Nose, Mouth, and Throat: Denies dizziness, Denies sore throat and Denies throat swelling Cardiovascular Cardiovascular: Denies chest pain and Denies dyspnea Respiratory Respiratory: Denies cough and Denies dyspnea Gastrointestinal Gastrointestinal: Denies abdominal pain, Denies diarrhea and Denies vomiting Genitourinary Genitourinary: Denies hematuria and Denies dysuria Musculoskeletal Musculoskeletal: Denies back pain and Denies numbness Integumentary/Breasts Skin/Breast: Denies lesions and Denies rash Neurologic Neurologic: Denies dizziness, Denies focal weakness and Denies numbness Endocrine Endocrine: Reports fatigue Allergic/Immunologic Allergic/Immunologic: Denies throat swelling [facility] Medical History Abdominal wall fistula (Resolved) 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 Asthma (Chronic) Chronic deep vein thrombosis (DVT) (Chronic) CKD (chronic kidney disease) stage 3, GFR 30-59 ml/min (Chronic 11/06/15) COPD (chronic obstructive pulmonary disease) (Chronic) Depression (Chronic 08/14/17) H/O ulcerative colitis (Chronic) Hypertension (Chronic) 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) DEVORAH on CPAP (Chronic 11/06/15) Rheumatoid arthritis (Chronic 11/06/15) Seizure disorder (Chronic) Subdural hematoma (Resolved) Surgical History Cholecystectomy (Inactive 02/15/16[place] [facility] [place],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) with L stent insertion Extraction of cataract (Chronic 07/28/16) R eye surgeon Amanda Ochoa MD Fracture, Closed Treatment (Resolved 02/15/16[place] [facility] [place]Distal Rt Radius Fx hernia repair (Chronic 04/08/99) parastomal R/trelex mesh repair retinal breaks (Chronic 12/24/03) Total colectomy (Inactive 09/25/97) transsphenoidal hypophysectomy (Chronic 11/15/93) Transurethral prostatectomy (Chronic 11/24/14) Family History Mother , CVA Stroke Father , lung CA No problems noted. Sister , COPD No problems noted. Brother , unknown at age 29. No problems noted. Brother Diabetes ASCVD (arteriosclerotic cardiovascular disease) Brother No problems noted. Sister Diabetes Sister No problems noted. Other Arthritis Social History Smoking/Tobacco Use Status: Former Tobacco Use Alcohol Intake: never Drug use: Never Substance use type: does not use Do you feel safe at home: Yes Do you feel safe in your relationship?: Yes Exam Const General: cooperative, healthy appearing and no acute distress HENMT Head: normal to inspection Face and sinus: normal facial exam Eyes General: appearance normal, both eyes and all related structures Pupils: PERRL EOM: EOM intact bilaterally Neck Neck: normal visual inspection and No submandibular swelling Lymphatic: no lymphadenopathy noted Chest Chest: normal inspection of the chest and no tenderness Resp Effort & Inspection: normal respiratory effort and able to speak in complete sentences Auscultation: clear to auscultation bilaterally Cardio Rate: regular rate Rhythm: regular rhythm GI Inspection: scar (throughout, well healed) and other (colostomy LLQ, brown liquid stool) Palpation: soft, not firm, not rigid and nontender Auscultation: normal bowel sounds Skin General skin exam: no rashes or lesions noted Neuro General: alert, awake and oriented x3 Cranial Nerves: CN's II-XI intact bilaterally Cognition: normal cognition Speech: speech normal Motor: muscle tone normal throughout and strength 5/5 throughout Sensory Exam: no sensory deficits noted Extrem General: normal to inspection, full ROM, normal capillary refill, no calf tenderness bilaterally and no edema Psych Appearance: grossly normal Mental Status: mental status grossly normal Speech and Movement: speech and movement normal Affect: normal affect Course Vital Signs Vital signs: Vital Signs Temperature 98.4 F 01/02/19 09:45 Pulse 77 01/02/19 09:45 Respiratory Rate 21 01/02/19 09:45 Blood Pressure 118/56 L 01/02/19 09:45 Pulse Oximetry 97 01/02/19 09:45 Temperature 98.4 F 01/02/19 09:45 Temperature Source Skin 01/02/19 09:45 Pulse 77 01/02/19 09:45 Respiratory Rate 21 01/02/19 09:45 Respiratory Effort 01/02/19 09:45 Blood Pressure 118/56 L 01/02/19 09:45 Blood Pressure Position Sitting 01/02/19 09:45 Pulse Oximetry 97 01/02/19 09:45 Pain Level 0 01/02/19 09:45 Comment 01/02/19 09:45
[2019-01-02 10:11] LABS: Abs Immature Grans 0.08 k/cumm (0.0-0.09); HCT 36.3 % (40.0-50.0); HGB 11.6 g/dL (13.5-17.5); Mean Corpuscular Hemoglobin 29.7 pg (27.0-33.0); Mean Corpuscular Volume 93.1 fL (80-95); Mean Platelet Volume 10.8 fL (8.0-11.0); Platelet Count 168 x1000/uL (130-400); RBC Distribution Width 17.3 % (11.8-14.1); White Blood Cell Count 9.68 k/cumm (4.4-10.8)
[2019-01-02 10:27] LABS: ALT 59 U/L (16-63); AST 43 U/L (15-37); Absolute Eosinophil Count 0.29 k/cumm (0.0-0.7); Absolute Lymphocyte Count 0.39 k/cumm (1.2-3.4); Absolute Monocyte Count 1.55 k/cumm (0.11-0.7); Absolute Neutrophil Count 7.36 k/cumm (1.2-6.7); Albumin 3.6 g/dL (3.4-5.0); Alkaline Phosphatase 132 U/L (46-116); Anion Gap 9.8 mmol/L (3-11); Anisocytosis 2+; BUN 41 mg/dL (7-18); CO2 21.2 mmol/L (21.0-32.0); CREATININE 2.05 mg/dL (0.70-1.30); Calcium 8.8 mg/dL (8.5-10.1); Chloride 101 mmol/L (98-107); Diff Comment Manual Differential; Estimated GFR 31.73 (mL/min/1.73m2); Glucose 108 mg/dL (70-100); Lipase 454 U/L (73-393); Magnesium 1.8 mg/dL (1.8-2.4); Sodium 132 mmol/L (136-145); Total Protein 7.9 g/dL (6.4-8.2)
[2019-01-02 10:28] LABS: Polychromasia Present
[2019-01-02 10:29] LABS: Troponin I < 0.05 ng/mL (0.00-0.06)
[2019-01-02 10:30] LABS: Potassium 6.2 mmol/L (3.5-5.1)
[2019-01-02 11:15] LABS: Bilirubin Negative (Negative); Blood Moderate (Negative); Clarity Sl Cloudy (Clear); Glucose Negative (Negative); Ketones Negative (Negative); Leukocyte Esterase Moderate (Negative); Nitrite Negative (Negative); Specific Gravity 1.015 (1.005-1.025); Urobilinogen 0.2 EU/dL (Up TO 0.2)
[2019-01-02 11:23] LABS: WBC >50 HPF (0-5)
[2019-01-02 11:24] LABS: C & S Indicated? Yes; Other Cells Moderate Yeast (Negative)
[2019-01-02] MEDS: Normal Saline 1,000 ML 1000 ML IV (12:04)
--- NOTE | 2019-01-02 12:15 | DI.CT_ITS ---
EXAM: CT ABDOMEN AND PELVIS WO CLINICAL HISTORY: fatigue, elevated lipase, r/o acute pancreatitis. TECHNIQUE: The study was carried out with oral contrast enhancement. IV contrast was not administere d due to renal function. COMPARISON: CT ABDOMEN AND PELVIS WO from 07/31/2018 FINDINGS: Compared with the previous study of 07/31/2018, atelectatic changes are identified in the lung bases. Liver and spleen appear intact. Pancreas is unremarkable. There is nothing to suggest acute pancreati tis. The patient is status post cholecystectomy. There is no evidence of biliary dilatation. The l eft kidney is intact with no evidence of nephrolithiasis or hydronephrosis. Duplicated right renal co llecting system is again identified. Again noted is a nonobstructing 1 cm calculus in the upper pole of the right kidney. Renal cysts are also again seen. The bladder is intact. A left lower quadran t ostomy identified. There is no evidence of bowel obstruction. There is no evidence of free air or fluid in the intraperitoneal space. There is no evidence of an intra-abdominal or pelvic mass or ad enopathy. There is no evidence of an aortic aneurysm. Degenerative changes are demonstrated througho ut the spine. Again noted are compression deformities of T12, L1 and L2. IMPRESSION: There is no evidence of pancreatitis. No acute abnormality is demonstrated in the abdomen or pelvis.
[2019-01-02 14:33] LABS: Anion Gap 8.5 mmol/L (3-11); BUN 35 mg/dL (7-18); CO2 20.5 mmol/L (21.0-32.0); CREATININE 1.79 mg/dL (0.70-1.30); Chloride 100 mmol/L (98-107); Estimated GFR 37.11 (mL/min/1.73m2); Glucose 94 mg/dL (70-100); Sodium 129 mmol/L (136-145)
[2019-01-02 14:41] LABS: Potassium 6.6 mmol/L (3.5-5.1)
[2019-01-02] MEDS: Insulin REGULAR-Human 100 UNITS/ML UNIT 6 UNITS SC (15:02)
[2019-01-02] MEDS: Albuterol 2.5 MG/3 ML INH SOLN VIAL 10 MG UPD (15:02)
[2019-01-02] MEDS: Sodium Bicarbonate 50 MEQ/50 ML SYR IVP (15:04)
[2019-01-02 17:25] LABS: Anion Gap 10.2 mmol/L (3-11); BUN 34 mg/dL (7-18); CO2 23.8 mmol/L (21.0-32.0); Calcium 8.1 mg/dL (8.5-10.1); Chloride 101 mmol/L (98-107); Estimated GFR 34.64 (mL/min/1.73m2); Glucose 129 mg/dL (70-100); Potassium 4.8 mmol/L (3.5-5.1); Sodium 135 mmol/L (136-145)
[2019-01-02] MEDS: MacroBID 100 MG CAP PO (18:13)
== END 2019-01-02 18:40 | disposition home or self-care (01) ==
PROVIDERS: Emergency Provider Physician Assistant; PCP Family Medicine
DX: N39.0 Urinary tract infection, site not specified (principal); I44.0 Atrioventricular block, first degree; E87.6 Hypokalemia; N18.3 Chronic kidney disease, stage 3 (moderate); I12.9 Hypertensive chronic kidney disease with stage 1 through stage 4 chronic kidney disease, or unspecified chronic kidney disease; R53.83 Other fatigue; J44.9 Chronic obstructive pulmonary disease, unspecified; Z87.891 Personal history of nicotine dependence
CPT/HCPCS: 36415; 80048; 80053; 83690; 93005; 96361; 96372; 96374; 96375; 99285; 74176; 81003; 81015; 83735; 84484; 85025; 87086; 93010; J7613

== ENCOUNTER 2019-01-08 15:22 | Outpatient (REF) | payer MEDICARE, OTHER, SELFPAY ==
[2019-01-08 15:57] LABS: Abs Immature Grans 0.05 k/cumm (0.0-0.09); Absolute Basophil Count 0.01 k/cumm (0.0-0.2); Absolute Eosinophil Count 0.23 k/cumm (0.0-0.7); Absolute Lymphocyte Count 0.45 k/cumm (1.2-3.4); Absolute Monocyte Count 0.85 k/cumm (0.11-0.7); Absolute Neutrophil Count 4.21 k/cumm (1.2-6.7); Basophils % 0.2; HCT 32.6 % (40.0-50.0); HGB 10.3 g/dL (13.5-17.5); Immature Grans % 0.9; Lymphocytes % 7.8; Mean Corp. HGB Concentration 31.6 g/dL (32.0-36.0); Mean Corpuscular Hemoglobin 30.5 pg (27.0-33.0); Mean Corpuscular Volume 96.4 fL (80-95); Mean Platelet Volume 11.8 fL (8.0-11.0); Monocytes % 14.7; Neutrophils % 72.4; Platelet Count 144 x1000/uL (130-400); RBC 3.38 m/cumm (4.50-6.00); RBC Distribution Width 17.2 % (11.8-14.1)
[2019-01-08 17:01] LABS: ALT 34 U/L (16-63); AST 30 U/L (15-37); Albumin 3.4 g/dL (3.4-5.0); Alkaline Phosphatase 126 U/L (46-116); Anion Gap 9.3 mmol/L (3-11); BUN 25 mg/dL (7-18); Bilirubin, Total 0.4 mg/dL (0.2-1.0); CO2 22.7 mmol/L (21.0-32.0); Calcium 8.5 mg/dL (8.5-10.1); Chloride 104 mmol/L (98-107); Estimated GFR 36.87 (mL/min/1.73m2); Glucose 111 mg/dL (70-100); Sodium 136 mmol/L (136-145); Total Protein 6.5 g/dL (6.4-8.2)
[2019-01-08 17:25] LABS: Potassium 6.1 mmol/L (3.5-5.1)
[2019-01-08 17:33] LABS: Lipase 354 U/L (73-393)
== END 2019-01-08 15:42 ==
LOC: LBN 15:22
PROVIDERS: PCP Family Medicine; Visit Provider Family Medicine
DX: R11.2 Nausea with vomiting, unspecified (principal); R10.9 Unspecified abdominal pain
CPT/HCPCS: 80053; 83690; 85025

== ENCOUNTER 2019-01-08 19:06 | Emergency (ER) | payer MEDICARE, OTHER, SELFPAY ==
[2019-01-08 19:10] VITALS: BP 131/63; PULSE 69; RESP 15; TEMP 36.8; O2SAT 100
[2019-01-08 19:11] VITALS: RESP 19
--- NOTE | 2019-01-08 19:39 | NUR.NOTE ---
BIBA from the [facility] with c/o elevated K. Per facility, K was 5.9 last week, up to 6.1 today.Pt has hx of kidney disease, was on HD in the past after surgery requiring blood transfusions. Pt reports feeling tired for the past week with decreased appetite. Denies CP, SOB, dizziness, N/V. colostomy to LLQ with green/brown stool. Abd soft, non-tender. SR on monitor. LSCTA. #20 to LFA, labs drawn.
[2019-01-08 19:42] LABS: Abs Immature Grans 0.05 k/cumm (0.0-0.09); Absolute Basophil Count 0.01 k/cumm (0.0-0.2); Absolute Eosinophil Count 0.33 k/cumm (0.0-0.7); Absolute Lymphocyte Count 0.61 k/cumm (1.2-3.4); Absolute Monocyte Count 1.26 k/cumm (0.11-0.7); Absolute Neutrophil Count 5.53 k/cumm (1.2-6.7); Basophils % 0.1; Eosinophils % 4.2; HCT 35.1 % (40.0-50.0); Immature Grans % 0.6; Lymphocytes % 7.8; Mean Corp. HGB Concentration 31.3 g/dL (32.0-36.0); Mean Corpuscular Hemoglobin 30.4 pg (27.0-33.0); Monocytes % 16.2; Neutrophils % 71.1; Platelet Count 147 x1000/uL (130-400); RBC 3.62 m/cumm (4.50-6.00); RBC Distribution Width 17.3 % (11.8-14.1); White Blood Cell Count 7.78 k/cumm (4.4-10.8)
[2019-01-08 19:55] LABS: ALT 31 U/L (16-63); AST 28 U/L (15-37); Albumin 3.4 g/dL (3.4-5.0); Alkaline Phosphatase 128 U/L (46-116); Anion Gap 9.2 mmol/L (3-11); BUN 22 mg/dL (7-18); Bilirubin, Total 0.4 mg/dL (0.2-1.0); CO2 24.8 mmol/L (21.0-32.0); CREATININE 1.63 mg/dL (0.70-1.30); Calcium 8.2 mg/dL (8.5-10.1); Chloride 105 mmol/L (98-107); Estimated GFR 41.34 (mL/min/1.73m2); Glucose 91 mg/dL (70-100); Potassium 5.4 mmol/L (3.5-5.1); Sodium 139 mmol/L (136-145); Total Protein 7.1 g/dL (6.4-8.2)
--- NOTE | 2019-01-08 20:57 | W.ED.GENAD ---
Discharge Plan Disposition Patient Disposition: HOME Condition: Good Discharge Details Chief Complaint: GenMedical Clinical Impression: Serum potassium elevated Primary Care Provider: Sheeba Best ED Provider: Katelynn Ruiz Home Meds and New Rx's Prescriptions: No Action Symbicort 160-4.5 mcg/actuation HFA aerosol inhaler 1 puff Inhalation BID Qty: 3 RF: 3 Vimpat 100 mg tablet 100 mg PO BID Qty: 180 RF: 3 fludrocortisone 0.1 MG tablet 0.15 mg PO DAILY Qty: 90 RF: 3 folic acid 1 MG tablet 1 mg PO DAILY RF: 0 montelukast 10 MG tablet 10 mg PO DAILY Qty: 90 RF: 3 Prolia 60 MG/1 ML syringe 60 mg SQ q6 months RF: 0 (DME) BD Regular Bevel [place] 1 EACH needle 1 ea Miscellaneous monthly Qty: 12 RF: 0 epinephrine 0.3 MG/SYR auto-injector 0.3 mg Sub-Q PRN PRNRF: 0 ondansetron HCl 4 mg Tablet 4 mg PO DAILY RF: 0 ondansetron HCl 4 mg Tablet 4 mg PO .Q6H, PRN RF: 0 methotrexate sodium 2.5 mg Tablet 15 mg PO .QWEEK RF: 0 fluticasone propionate 50 mcg/actuation spray,suspension 2 spray NS HS RF: 0 hydrocortisone 5 mg Tablet 5 mg PO BID@0800,1700 RF: 0 loperamide [Imodium A-D] 2 mg Tablet 2 mg PO TID RF: 0 hydrocortisone 20 mg Tablet 20 mg PO DAILY RF: 0 cholecalciferol (vitamin D3) 5,000 unit Capsule 5,000 unit PO DAILY RF: 0 cyanocobalamin (vitamin B-12) 1,000 mcg/mL solution 1,000 mcg IM .Q 60 DAYS RF: 0 famotidine 20 mg Tablet 20 mg PO DAILY RF: 0 mirtazapine 15 mg Tablet 15 mg PO .QHS RF: 0 multivitamin,tx-minerals Tablet 1 tab PO DAILY RF: 0 citalopram 20 mg tablet 10 mg PO DAILY RF: 0 Discharge Instructions Instructions: Hyperkalemia (ED) Additional Instructions: Drink plenty of fluids, eat a balanced diet. Rest activities as tolerated. Follow-up promptly with your primary care doctor. Repeat blood draw in the next 1 to 2 days to recheck your potassium. Return for any worsening or concerns sooner if needed or for any alarming symptoms or worsening if needed sooner Discharge Data Discharge Date/Time-TO BE ENTERED AT DEPARTURE: 01/08/19 21:30 Medical Decision Making 78-year-old gentleman with a complicated medical history specifically COPD, chronic kidney disease stage III, status post total colectomy with colostomy in place, Arthur's disease. Patient complaining of decreased appetite this evening and mild fatigue. presents for hyperkalemia per the assisted. Patient reports mild fatigue today. Patient denies numbness or tingling of extremities, nausea or vomiting, difficulty breathing or palpitations. Denies chest pain. Denies weakness of extremities. alf reported hyperkalemia drawn at the assisted today of 6.1 therefore was sent to the emergency room. Patient was recently seen for similar ultimately receiving Kayexalate. Patient had a standing order for Kayexalate at the assisted but they did not have any Kayexalate therefore he was sent to the emergency room.. Patient's physical exam is benign. Patient's initial EKG in the emergency room reveals a rate of 68, sinus rhythm with a noted first-degree AV block with IN interval of 247. This is unchanged compared to previous study on 01/02/[address] Cr. Repeat of labs reveal potassium of 5.4. Given no significant cardiac changes and a potassium 5.4 feels most appropriate to hold on any Kayexalate treatment at this time and repeat labs in the next 1 to 2 days. This was discussed with my attending Dr. Riggins who agrees with plan of care. Patient will be discharged home at this time with prompt follow-up with his primary care doctor. HPI General Date/Time Provider Initiated Documentation: 01/08/19 19:25. HPI Narrative: Very pleasant 78-year-old gentleman who comes to the emergency room tonight with mild complaints of fatigue and decrease in appetite which was noted today. Patient had labs in the assisted today which revealed hyperkalemia for which she was transferred to the emergency room for further evaluation as they did have a standing order for Kayexalate however they had no Kayexalate available this evening which prompted patient's emergency room evaluation. Patient denies chest pain with difficulty breathing or shortness of breath. No recent fevers or ill feeling. Patient has been eating and drinking without difficulty although does have some mild decrease in appetite this evening. Patient is no significant changes in urination. Patient has colostomy present but no change in feces noted colostomy bag. Denies abdominal pain. Denies pain of any sort at this time. Denies weakness or paresthesia Related Data Home Medications Medication Instructions Recorded Confirmed epinephrine 0.3 mg SUB-Q PRN PRN 10/07/14 01/08/19 fludrocortisone 0.15 mg PO DAILY #90 tab-cap 03/17/16 01/08/19 folic acid 1 mg PO DAILY 10/24/16 01/08/19 montelukast 10 mg PO DAILY #90 tab-cap 01/03/17 01/08/19 Prolia 60 mg SQ q6 months 03/15/17 01/08/19 BD Regular Bevel [place] #12 ea 11/16/17 12/26/18 budesonide-formoterol HFA 160 1 puff INHALATION BID #3 canister 02/07/18 01/08/19 mcg-4.5 mcg/actuation aerosol inhaler cholecalciferol (vitamin D3) 5,000 unit PO DAILY 07/30/18 01/08/19 cyanocobalamin (vitamin B-12) 1,000 mcg IM .Q 60 DAYS 07/30/18 01/08/19 fluticasone propionate 2 spray NS HS 07/30/18 01/08/19 hydrocortisone 5 mg PO BID@0800,1700 07/30/18 01/08/19 hydrocortisone 20 mg PO DAILY 07/30/18 01/08/19 loperamide [Imodium A-D] 2 mg PO TID 07/30/18 01/08/19 methotrexate sodium 15 mg PO .QWEEK 07/30/18 01/08/19 ondansetron HCl 4 mg PO .Q6H, PRN 07/30/18 01/08/19 ondansetron HCl 4 mg PO DAILY 07/30/18 01/08/19 lacosamide 100 mg tablet 100 mg PO BID #180 tab 11/14/18 01/08/19 citalopram 10 mg PO DAILY 01/02/19 01/08/19 famotidine 20 mg PO DAILY 01/02/19 01/08/19 mirtazapine 15 mg PO .QHS 10/09/19 10/15/19 multivitamin,tx-minerals 1 tab PO DAILY 01/02/19 01/08/19 Previous Rx's Medication Instructions Recorded montelukast 10 mg PO DAILY #90 tab-cap 01/03/17 BD Regular Bevel [place] #12 ea 11/16/17 budesonide-formoterol HFA 160 1 puff INHALATION BID #3 canister 02/07/18 mcg-4.5 mcg/actuation aerosol inhaler lacosamide 100 mg tablet 100 mg PO BID #180 tab 11/14/18 Allergies Allergy/AdvReac Type Severity Reaction Status Date / Time latex Allergy Intermediate rash, Verified 01/02/19 09:54 itching plasma protein fraction Allergy Intermediate Hives Verified 01/02/19 09:54 acebutolol Allergy Unknown Verified 01/02/19 09:54 promethazine Allergy Unknown Verified 01/02/19 09:54 pseudoephedrine Allergy Unknown Verified 01/02/19 09:54 terazosin Allergy Unknown Verified 01/02/19 09:54 tramadol HCl [From Ultracet] Allergy Unknown Verified 01/02/19 09:54 ceftriaxone Allergy Unverified 01/02/19 09:54 chlorpheniramine Allergy Unverified 01/02/19 09:54 venom-honey bee Allergy Verified 01/02/19 09:54 [bee venom (honey bee)] ferrous sulfate AdvReac Severe Stomach Verified 01/02/19 09:54 aches tamsulosin HCl [From Flomax] AdvReac Severe Dizziness/L Verified 01/02/19 09:54 ightheade Antihistamines - Alkylamine AdvReac Unknown affected Verified 01/02/19 09:54 prostate cefuroxime AdvReac Unknown daark urine Verified 01/02/19 09:54 plasma human Allergy Intermediate Hives Uncoded 01/02/19 09:54 General Stated Complaint: GenMedical SANTOSH: 3 Review of Systems Review of Systems ROS Unobtainable: All systems reviewed & are unremarkable except as noted in HPI and below Constitutional Constitutional: Denies chills, Reports fatigue, Denies fever(s), Denies headache(s) and Reports poor appetite ENT Ears, Nose, Mouth, and Throat: Denies headache(s) Cardiovascular Cardiovascular: Denies chest pain and Denies palpitations Respiratory Respiratory: Denies cough Gastrointestinal Gastrointestinal: Denies abdominal pain, Denies cramping, Denies diarrhea and Denies vomiting Genitourinary Genitourinary: Denies difficulty urinating and Denies urinary urgency Neurologic Neurologic: Denies headache(s) Endocrine Endocrine: Reports fatigue and Denies palpitations [facility] Medical History Abdominal wall fistula (Resolved) [place]'s disease (Chronic) s/p excision of renal adenomas Asthma (Chronic) Chronic deep vein thrombosis (DVT) (Chronic) CKD (chronic kidney disease) stage 3, GFR 30-59 ml/min (Chronic 11/06/15) COPD (chronic obstructive pulmonary disease) (Chronic) Depression (Chronic 08/14/17) H/O ulcerative colitis (Chronic) Hypertension (Chronic) 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) DEVORAH on CPAP (Chronic 11/06/15) Rheumatoid arthritis (Chronic 11/06/15) Seizure disorder (Chronic) Subdural hematoma (Resolved) Surgical History [place]Inactive 02[place]15/16[place] [facility] [place]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) with L stent insertion Extraction of cataract (Chronic 07/28/16) R eye surgeon Amanda Ochoa MD Fracture, Closed Treatment (Resolved 02/15/16[place] [facility] [place]Distal R[place] Radius Fx hernia repair (Chronic 04/08/99) parastomal R/trelex mesh repair retinal breaks (Chronic 12/24/03) Total colectomy (Inactive 09/25/97) transsphenoidal hypophysectomy (Chronic 11/15/93) Transurethral prostatectomy (Chronic 11/24/14) Family History Mother , CVA Stroke Father , lung CA No problems noted. Sister , COPD No problems noted. Brother , unknown at age 29. No problems noted. Brother Diabetes ASCVD (arteriosclerotic cardiovascular disease) Brother No problems noted. Sister Diabetes Sister No problems noted. Other Arthritis Social History Smoking/Tobacco Use Status: Former Tobacco Use Alcohol Intake: never Drug use: Never Substance use type: does not use Do you feel safe at home: Yes Do you feel safe in your relationship?: Yes Exam Narrative Exam Narrative: CONST: Healthy appearing patient, in no acute distress. Well hydrated. Alert and alert. HENMT: Head nomocephalic, normal to inspection. Atraumatic. Hearing grossly normal. EYES: General normal appearance. Alignment normal. Eyelids normal. Conjunctiva normal. NECK: Normal visual inspection. FROM. Trachea midline. No Midline tenderness. CHEST: Normal insepection of the chest. RESP: Normal respiratory effort. Speaking full sentences. No cough. No audible wheezing. No retractions. Breath sounds present and equal bilaterally. No wheezing, rhonchi or rales CARDIO: No JVD. No murmurs or rubs. Regular rate and rhythm Abdomen; colostomy bag present no rebound or guarding. Bowel sounds present in all 4 quadrants. No abdominal tenderness with palpation. No peritoneal signs MUSCULOSKELETAL: Normal Gait. FROM of all extremities. No swelling of the lower legs SKIN: Normal. Dry. No rashes. NEURO: Alert and awake. Speech clear. PSYCH: Normal affect. Cooperative. Course Vital Signs Vital signs: Vital Signs Temperature 36.8 C 01/08/19 19:10 Pulse 69 01/08/19 19:10 Respiratory Rate 15 01/08/19 19:10 Blood Pressure 131/63 01/08/19 19:10 Pulse Oximetry 100 01/08/19 19:10 Temperature 36.8 C 01/08/19 19:10 Temperature Source Skin 01/08/19 19:10 Pulse 69 01/08/19 19:10 Respiratory Rate 19 01/08/19 19:11 Respiratory Effort 01/08/19 19:11 Respiratory Depth Normal 01/08/19 19:11 Respiratory Pattern Normal 01/08/19 19:11 Blood Pressure 131/63 01/08/19 19:10 Pulse Oximetry 100 01/08/19 19:10 Oxygen Delivery Method Room Air 01/08/19 19:10 Oxygen Flow Rate 0 01/08/19 19:10 Pain Level 0 01/08/19 19:10 Lab/Test Results Lab/Test Results: Laboratory Tests Range/Units 01/08/19 01/08/19 19:20 19:20 WBC (4.4-10.8) k/cumm 7.78 D RBC (4.50-6.00) m/cumm 3.62 L Hgb (13.5-17.5) g/dL 11.0 L Hct (40.0-50.0) % 35.1 L MCV (80-95) fL 97.0 H MCH (27.0-33.0) pg 30.4 MCHC (32.0-36.0) g/dL 31.3 L RDW (11.8-14.1) % 17.3 H Plt Count (130-400) x1000/uL 147 MPV (8.0-11.0) fL 11.0 Immature Gran % 0.6 Neutrophils % 71.1 Lymphocytes % 7.8 Monocytes % 16.2 Eosinophils % 4.2 Basophils % 0.1 Absolute Neutrophils (1.2-6.7) k/cumm 5.53 Absolute Lymphocytes (1.2-3.4) k/cumm 0.61 L Absolute Monocytes (0.11-0.7) k/cumm 1.26 H Absolute Eosinophils (0.0-0.7) k/cumm 0.33 Absolute Basophils (0.0-0.2) k/cumm 0.01 Sodium (136-145) mmol/L 139 Potassium (3.5-5.1) mmol/L 5.4 H Chloride (98-107) mmol/L 105 Carbon Dioxide (21.0-32.0) mmol/L 24.8 Anion Gap (3-11) mmol/L 9.2 BUN (7-18) mg/dL 22 H Creatinine (0.70-1.30) mg/dL 1.63 H Estimated GFR/1.73 m2 (mL/min/1.73m2) 41.34 Glucose (70-100) mg/dL 91 Calcium (8.5-10.1) mg/dL 8.2 L Total Bilirubin (0.2-1.0) mg/dL 0.4 AST (15-37) U/L 28 ALT (16-63) U/L 31 Alkaline Phosphatase (46-116) U/L 128 H Total Protein (6.4-8.2) g/dL 7.1 Albumin (3.4-5.0) g/dL 3.4
[2019-01-08 21:08] VITALS: BP 113/55; PULSE 71; RESP 16; O2SAT 99
--- NOTE | 2019-01-08 21:23 | NUR.NOTE ---
Spoke to pt med Cruz with pt permission. Awar pt to be DC. discharge instructions reviewed with pt with verbal understanding. aware to f/u with pcp as needed. The [facility] contacted to obtain ride home for pt.
== END 2019-01-08 21:30 | disposition home or self-care (01) ==
PROVIDERS: Emergency Provider Physician Assistant; PCP Family Medicine
DX: E87.5 Hyperkalemia (principal); I44.0 Atrioventricular block, first degree; N18.3 Chronic kidney disease, stage 3 (moderate); J44.9 Chronic obstructive pulmonary disease, unspecified; I12.9 Hypertensive chronic kidney disease with stage 1 through stage 4 chronic kidney disease, or unspecified chronic kidney disease
CPT/HCPCS: 36415; 80053; 93005; 99284; 85025; 93010

== ENCOUNTER 2019-01-09 08:33 | Outpatient (REF) | payer MEDICARE, OTHER, SELFPAY ==
[2019-01-09 09:58] LABS: Abs Immature Grans 0.06 k/cumm (0.0-0.09); Absolute Basophil Count 0.01 k/cumm (0.0-0.2); Absolute Eosinophil Count 0.34 k/cumm (0.0-0.7); Absolute Lymphocyte Count 0.78 k/cumm (1.2-3.4); Absolute Monocyte Count 1.29 k/cumm (0.11-0.7); Absolute Neutrophil Count 3.86 k/cumm (1.2-6.7); Basophils % 0.2; Eosinophils % 5.4; HCT 32.7 % (40.0-50.0); Immature Grans % 0.9; Lymphocytes % 12.3; Mean Corp. HGB Concentration 30.6 g/dL (32.0-36.0); Mean Corpuscular Hemoglobin 29.7 pg (27.0-33.0); Mean Platelet Volume 11.6 fL (8.0-11.0); Monocytes % 20.3; Neutrophils % 60.9; Platelet Count 136 x1000/uL (130-400); RBC 3.37 m/cumm (4.50-6.00); RBC Distribution Width 17.3 % (11.8-14.1); White Blood Cell Count 6.34 k/cumm (4.4-10.8)
[2019-01-09 10:56] LABS: ALT 30 U/L (16-63); AST 28 U/L (15-37); Albumin 3.3 g/dL (3.4-5.0); Alkaline Phosphatase 107 U/L (46-116); Anion Gap 8.6 mmol/L (3-11); BUN 21 mg/dL (7-18); Bilirubin, Total 0.5 mg/dL (0.2-1.0); CO2 22.4 mmol/L (21.0-32.0); CREATININE 1.45 mg/dL (0.70-1.30); Chloride 106 mmol/L (98-107); Estimated GFR 47.32 (mL/min/1.73m2); Glucose 82 mg/dL (70-100); Lipase 290 U/L (73-393); Potassium 5.9 mmol/L (3.5-5.1); Sodium 137 mmol/L (136-145); Total Protein 6.3 g/dL (6.4-8.2)
== END 2019-01-09 08:53 ==
LOC: LBN 08:33
PROVIDERS: PCP Family Medicine; Visit Provider Family Medicine
DX: R53.83 Other fatigue (principal); I10 Essential (primary) hypertension; D51.8 Other vitamin B12 deficiency anemias; R33.9 Retention of urine, unspecified
CPT/HCPCS: 80053; 83690; 85025

== ENCOUNTER 2019-01-14 12:21 | Outpatient (REF) | payer MEDICARE, OTHER, SELFPAY ==
[2019-01-14 13:39] LABS: Potassium 4.9 mmol/L (3.5-5.1)
== END 2019-01-14 12:41 ==
LOC: LBN 12:21
PROVIDERS: PCP Family Medicine; Visit Provider Family Medicine
DX: E87.5 Hyperkalemia (principal)
CPT/HCPCS: 84132

== ENCOUNTER 2019-01-21 12:09 | Outpatient (REF) | payer MEDICARE, OTHER, SELFPAY ==
[2019-01-21 14:01] LABS: Anion Gap 8.5 mmol/L (3-11); BUN 15 mg/dL (7-18); CO2 25.5 mmol/L (21.0-32.0); CREATININE 1.18 mg/dL (0.70-1.30); Chloride 108 mmol/L (98-107); Glucose 82 mg/dL (70-100); Potassium 4.4 mmol/L (3.5-5.1); Sodium 142 mmol/L (136-145)
== END 2019-01-21 12:29 ==
LOC: LBN 12:09
PROVIDERS: PCP Family Medicine; Visit Provider Family Medicine
DX: E87.5 Hyperkalemia (principal); D51.8 Other vitamin B12 deficiency anemias
CPT/HCPCS: 80048

== ENCOUNTER 2019-01-31 11:56 | Outpatient (REF) | payer MEDICARE, OTHER, SELFPAY ==
[2019-01-31 13:56] LABS: Anion Gap 11.5 mmol/L (3-11); BUN 14 mg/dL (7-18); CO2 23.5 mmol/L (21.0-32.0); CREATININE 1.26 mg/dL (0.70-1.30); Calcium 7.9 mg/dL (8.5-10.1); Chloride 108 mmol/L (98-107); Estimated GFR 55.64 (mL/min/1.73m2); Glucose 102 mg/dL (70-100); Potassium 3.5 mmol/L (3.5-5.1); Sodium 143 mmol/L (136-145)
== END 2019-01-31 12:16 ==
LOC: LBN 11:56
PROVIDERS: PCP Family Medicine; Visit Provider Nurse Practitioner Gerontology
DX: E87.5 Hyperkalemia (principal)
CPT/HCPCS: 80048

== ENCOUNTER 2019-02-12 08:33 | Outpatient (REF) | payer MEDICARE, OTHER, SELFPAY ==
[2019-02-12 09:40] LABS: ALT 25 U/L (16-63); AST 25 U/L (15-37); Albumin 3.4 g/dL (3.4-5.0); Alkaline Phosphatase 151 U/L (46-116); Anion Gap 11.1 mmol/L (3-11); BUN 17 mg/dL (7-18); Bilirubin, Direct 0.18 mg/dL (0.00-0.20); Bilirubin, Total 0.4 mg/dL (0.2-1.0); CO2 23.9 mmol/L (21.0-32.0); CREATININE 1.25 mg/dL (0.70-1.30); Calcium 8.4 mg/dL (8.5-10.1); Chloride 109 mmol/L (98-107); Estimated GFR 56.16 (mL/min/1.73m2); Glucose 86 mg/dL (70-100); Potassium 3.9 mmol/L (3.5-5.1); Sodium 144 mmol/L (136-145); Total Protein 6.7 g/dL (6.4-8.2)
== END 2019-02-12 08:53 ==
LOC: LBN 08:33
PROVIDERS: PCP Family Medicine; Visit Provider Family Medicine
DX: E87.5 Hyperkalemia (principal); I25.10 Atherosclerotic heart disease of native coronary artery without angina pectoris; I10 Essential (primary) hypertension
CPT/HCPCS: 80048; 80076

== ENCOUNTER 2019-03-06 10:52 | Outpatient (REF) | payer MEDICARE, OTHER, SELFPAY ==
[2019-03-06 11:18] LABS: Abs Immature Grans 0.02 k/cumm (0.0-0.09); Absolute Basophil Count 0.01 k/cumm (0.0-0.2); Absolute Eosinophil Count 0.14 k/cumm (0.0-0.7); Absolute Lymphocyte Count 0.51 k/cumm (1.2-3.4); Absolute Monocyte Count 0.59 k/cumm (0.11-0.7); Absolute Neutrophil Count 3.43 k/cumm (1.2-6.7); Basophils % 0.2; HCT 32.3 % (40.0-50.0); HGB 9.7 g/dL (13.5-17.5); Immature Grans % 0.4; Lymphocytes % 10.9; Mean Corpuscular Hemoglobin 28.9 pg (27.0-33.0); Mean Corpuscular Volume 96.1 fL (80-95); Mean Platelet Volume 12.1 fL (8.0-11.0); Monocytes % 12.6; Neutrophils % 72.9; RBC 3.36 m/cumm (4.50-6.00); RBC Distribution Width 16.1 % (11.8-14.1)
[2019-03-06 11:33] LABS: Anion Gap 10.8 mmol/L (3-11); BUN 18 mg/dL (7-18); CO2 24.2 mmol/L (21.0-32.0); CREATININE 1.38 mg/dL (0.70-1.30); Calcium 8.7 mg/dL (8.5-10.1); Chloride 108 mmol/L (98-107); Glucose 93 mg/dL (74-106); Potassium 4.4 mmol/L (3.5-5.1); Sodium 143 mmol/L (136-145)
[2019-03-06 11:34] LABS: Diff Comment Diff Reviewed; Hypochromasia 2+; Platelet Count 117 x1000/uL (130-400)
== END 2019-03-06 11:12 ==
LOC: LBN 10:52
PROVIDERS: PCP Family Medicine; Visit Provider Nurse Practitioner Gerontology
DX: E87.5 Hyperkalemia (principal); R53.83 Other fatigue
CPT/HCPCS: 80048; 85025

== ENCOUNTER 2019-03-12 10:47 | Outpatient (REF) | payer MEDICARE, OTHER, SELFPAY ==
[2019-03-12 11:45] LABS: Abs Immature Grans 0.02 k/cumm (0.0-0.09); Absolute Basophil Count 0.01 k/cumm (0.0-0.2); Absolute Eosinophil Count 0.13 k/cumm (0.0-0.7); Absolute Lymphocyte Count 0.92 k/cumm (1.2-3.4); Absolute Monocyte Count 0.96 k/cumm (0.11-0.7); Absolute Neutrophil Count 2.13 k/cumm (1.2-6.7); Basophils % 0.2; Eosinophils % 3.1; HCT 31.3 % (40.0-50.0); HGB 9.5 g/dL (13.5-17.5); Immature Grans % 0.5; Lymphocytes % 22.1; Mean Corp. HGB Concentration 30.4 g/dL (32.0-36.0); Mean Corpuscular Hemoglobin 29.3 pg (27.0-33.0); Mean Corpuscular Volume 96.6 fL (80-95); Neutrophils % 51.1; Platelet Count 107 x1000/uL (130-400); RBC 3.24 m/cumm (4.50-6.00); RBC Distribution Width 16.9 % (11.8-14.1); White Blood Cell Count 4.17 k/cumm (4.4-10.8)
[2019-03-12 12:16] LABS: Atypical Lymphocytes % 3; Diff Comment Diff Reviewed; RBC Morphology Normal
== END 2019-03-12 11:07 ==
LOC: LBN 10:47
PROVIDERS: PCP Family Medicine; Visit Provider Nurse Practitioner Gerontology
DX: R53.83 Other fatigue (principal)
CPT/HCPCS: 85025

== ENCOUNTER 2019-03-25 10:19 | Outpatient (REF) | payer MEDICARE, OTHER, SELFPAY ==
[2019-03-25 11:07] LABS: Abs Immature Grans 0.03 k/cumm (0.0-0.09); Absolute Basophil Count 0.01 k/cumm (0.0-0.2); Absolute Lymphocyte Count 0.87 k/cumm (1.2-3.4); Absolute Monocyte Count 0.68 k/cumm (0.11-0.7); Absolute Neutrophil Count 2.89 k/cumm (1.2-6.7); Basophils % 0.2; Eosinophils % 2.2; HCT 30.7 % (40.0-50.0); HGB 9.4 g/dL (13.5-17.5); Immature Grans % 0.7; Mean Corp. HGB Concentration 30.6 g/dL (32.0-36.0); Mean Corpuscular Hemoglobin 29.2 pg (27.0-33.0); Mean Corpuscular Volume 95.3 fL (80-95); Mean Platelet Volume 11.1 fL (8.0-11.0); Monocytes % 14.8; Neutrophils % 63.1; Platelet Count 143 x1000/uL (130-400); RBC 3.22 m/cumm (4.50-6.00); RBC Distribution Width 16.7 % (11.8-14.1); White Blood Cell Count 4.58 k/cumm (4.4-10.8)
[2019-03-25 11:16] LABS: Anion Gap 13.1 mmol/L (3-11); BUN 19 mg/dL (7-18); CO2 23.9 mmol/L (21.0-32.0); CREATININE 1.31 mg/dL (0.70-1.30); Chloride 106 mmol/L (98-107); Glucose 92 mg/dL (74-106); Potassium 3.7 mmol/L (3.5-5.1); Sodium 143 mmol/L (136-145)
== END 2019-03-25 10:39 ==
LOC: LBN 10:19
PROVIDERS: PCP Family Medicine; Visit Provider Family Medicine
DX: E87.5 Hyperkalemia (principal); I10 Essential (primary) hypertension; R53.83 Other fatigue
CPT/HCPCS: 80048; 85025

== ENCOUNTER 2019-04-10 00:43 | Outpatient (RCR) | payer MEDICARE, OTHER, SELFPAY ==
[2019-04-10] MEDS: Denosumab 60 MG/ML SYR SC (10:06)
== END 2019-04-26 23:59 | disposition home or self-care (01) ==
LOC: INF 00:43
PROVIDERS: PCP Family Medicine; Visit Provider Family Medicine
DX: M81.0 Age-related osteoporosis without current pathological fracture (principal); M85.80 Other specified disorders of bone density and structure, unspecified site
CPT/HCPCS: 96372; J0897

== ENCOUNTER 2019-04-16 12:03 | Outpatient (CLI) | payer MEDICARE, OTHER, SELFPAY | END 2019-04-16 12:23 | LOC: LBO 12:05 → LBN 12:34 | PROVIDERS: PCP Family Medicine; Visit Provider Family Medicine | DX: E87.5 Hyperkalemia (principal); N18.3 Chronic kidney disease, stage 3 (moderate) ==

== ENCOUNTER 2019-05-21 11:59 | Outpatient (REF) | payer MEDICARE, OTHER, SELFPAY ==
[2019-05-21 12:59] LABS: Abs Immature Grans 0.03 k/cumm (0.0-0.09); Absolute Basophil Count 0.01 k/cumm (0.0-0.2); Absolute Eosinophil Count 0.14 k/cumm (0.0-0.7); Absolute Lymphocyte Count 0.92 k/cumm (1.2-3.4); Absolute Monocyte Count 1.04 k/cumm (0.11-0.7); Absolute Neutrophil Count 2.39 k/cumm (1.2-6.7); Basophils % 0.2; Eosinophils % 3.1; HGB 9.3 g/dL (13.5-17.5); Immature Grans % 0.7 %; Lymphocytes % 20.3; Mean Corp. HGB Concentration 29.1 g/dL (32.0-36.0); Mean Corpuscular Hemoglobin 27.5 pg (27.0-33.0); Mean Corpuscular Volume 94.7 fL (80-95); Mean Platelet Volume 11.9 fL (8.0-11.0); Neutrophils % 52.7; RBC 3.38 m/cumm (4.50-6.00); RBC Distribution Width 20.1 % (11.8-14.1); White Blood Cell Count 4.53 k/cumm (4.4-10.8)
[2019-05-21 13:34] LABS: ALT 18 U/L (16-63); AST 25 U/L (15-37); Albumin 3.7 g/dL (3.4-5.0); Alkaline Phosphatase 134 U/L (46-116); Anion Gap 12.3 mmol/L (3-11); BUN 17 mg/dL (7-18); Bilirubin, Total 0.7 mg/dL (0.2-1.0); CO2 24.7 mmol/L (21.0-32.0); CREATININE 1.25 mg/dL (0.70-1.30); Calcium 8.2 mg/dL (8.5-10.1); Chloride 106 mmol/L (98-107); Estimated GFR 56.16 (mL/min/1.73m2); Glucose 111 mg/dL (74-106); Potassium 4.2 mmol/L (3.5-5.1); Sodium 143 mmol/L (136-145); Total Protein 7.2 g/dL (6.4-8.2)
[2019-05-21 13:50] LABS: Bilirubin Negative (Negative); Blood Moderate (Negative); Clarity Cloudy (Clear); Glucose Negative (Negative); Ketones Negative (Negative); Leukocyte Esterase Large (Negative); Nitrite Negative (Negative); Specific Gravity 1.025 (1.005-1.025); Urobilinogen 0.2 EU/dL (Up TO 0.2)
[2019-05-21 14:03] LABS: C & S Indicated? Yes; WBC >50 HPF (0-5)
[2019-05-21 14:11] LABS: Anisocytosis 2+; Diff Comment RBC Morph Reviewed; Hypochromasia 2+; Microcytosis 1+; Platelet Count 98 x1000/uL (130-400); Polychromasia Present
== END 2019-05-21 12:19 ==
LOC: LBN 11:59
PROVIDERS: PCP Family Medicine; Visit Provider Family Medicine
DX: R53.83 Other fatigue (principal); I10 Essential (primary) hypertension; N39.0 Urinary tract infection, site not specified
CPT/HCPCS: 80053; 81003; 81015; 85025; 87086

== ENCOUNTER 2019-06-28 15:07 | Outpatient (REF) | payer MEDICARE, OTHER, SELFPAY ==
[2019-06-28 15:45] LABS: Abs Immature Grans 0.05 k/cumm (0.0-0.09); Absolute Basophil Count 0.01 k/cumm (0.0-0.2); Absolute Eosinophil Count 0.09 k/cumm (0.0-0.7); Absolute Lymphocyte Count 0.61 k/cumm (1.2-3.4); Absolute Monocyte Count 1.24 k/cumm (0.11-0.7); Absolute Neutrophil Count 4.66 k/cumm (1.2-6.7); Basophils % 0.2; Eosinophils % 1.4; HCT 32.7 % (40.0-50.0); HGB 9.5 g/dL (13.5-17.5); Immature Grans % 0.8 %; Lymphocytes % 9.2; Mean Corp. HGB Concentration 29.1 g/dL (32.0-36.0); Mean Corpuscular Hemoglobin 27.5 pg (27.0-33.0); Mean Corpuscular Volume 94.5 fL (80-95); Mean Platelet Volume 11.8 fL (8.0-11.0); Monocytes % 18.6; Neutrophils % 69.8; Platelet Count 101 x1000/uL (130-400); RBC 3.46 m/cumm (4.50-6.00); White Blood Cell Count 6.66 k/cumm (4.4-10.8)
[2019-06-28 16:04] LABS: ALT 28 U/L (16-63); AST 33 U/L (15-37); Albumin 3.8 g/dL (3.4-5.0); Alkaline Phosphatase 142 U/L (46-116); Anion Gap 11.2 mmol/L (3-11); BUN 16 mg/dL (7-18); Bilirubin, Total 0.8 mg/dL (0.2-1.0); CO2 22.8 mmol/L (21.0-32.0); CREATININE 1.68 mg/dL (0.70-1.30); Calcium 7.9 mg/dL (8.5-10.1); Chloride 107 mmol/L (98-107); Estimated GFR 39.92 (mL/min/1.73m2); Glucose 131 mg/dL (74-106); Potassium 4.5 mmol/L (3.5-5.1); Sodium 141 mmol/L (136-145); Total Protein 7.4 g/dL (6.4-8.2)
== END 2019-06-28 15:27 ==
LOC: LBN 15:07
PROVIDERS: PCP Family Medicine; Visit Provider Nurse Practitioner Gerontology
DX: J06.9 Acute upper respiratory infection, unspecified (principal)
CPT/HCPCS: 80053; 85025

== ENCOUNTER 2019-07-23 10:46 | Outpatient (REF) | payer MEDICARE, OTHER, SELFPAY ==
[2019-07-23 11:07] LABS: Abs Immature Grans 0.03 k/cumm (0.0-0.09); Absolute Basophil Count 0.01 k/cumm (0.0-0.2); Absolute Eosinophil Count 0.14 k/cumm (0.0-0.7); Absolute Lymphocyte Count 0.96 k/cumm (1.2-3.4); Absolute Monocyte Count 1.21 k/cumm (0.11-0.7); Absolute Neutrophil Count 1.77 k/cumm (1.2-6.7); Basophils % 0.2; Eosinophils % 3.4; HCT 30.5 % (40.0-50.0); HGB 8.8 g/dL (13.5-17.5); Immature Grans % 0.7 %; Lymphocytes % 23.3; Mean Corp. HGB Concentration 28.9 g/dL (32.0-36.0); Mean Corpuscular Hemoglobin 27.3 pg (27.0-33.0); Mean Corpuscular Volume 94.7 fL (80-95); Mean Platelet Volume 11.4 fL (8.0-11.0); Monocytes % 29.4; Platelet Count 72 x1000/uL (130-400); RBC 3.22 m/cumm (4.50-6.00); RBC Distribution Width 20.3 % (11.8-14.1); White Blood Cell Count 4.12 k/cumm (4.4-10.8)
[2019-07-23 11:14] LABS: ALT 59 U/L (16-63); AST 65 U/L (15-37); Albumin 3.5 g/dL (3.4-5.0); Alkaline Phosphatase 147 U/L (46-116); Anion Gap 8.7 mmol/L (3-11); BUN 22 mg/dL (7-18); Bilirubin, Total 0.5 mg/dL (0.2-1.0); CO2 26.3 mmol/L (21.0-32.0); Calcium 8.1 mg/dL (8.5-10.1); Chloride 106 mmol/L (98-107); Estimated GFR 42.24 (mL/min/1.73m2); Glucose 96 mg/dL (74-106); Potassium 4.5 mmol/L (3.5-5.1); Sodium 141 mmol/L (136-145)
[2019-07-23 11:48] LABS: Anisocytosis 1+; Diff Comment Agrees w/ Instrument
== END 2019-07-23 11:06 ==
LOC: LBN 10:46
PROVIDERS: PCP Family Medicine; Visit Provider Family Medicine
DX: N18.9 Chronic kidney disease, unspecified (principal); R68.89 Other general symptoms and signs; I10 Essential (primary) hypertension
CPT/HCPCS: 80053; 85025

== ENCOUNTER 2019-07-30 18:24 | Outpatient (REF) | payer MEDICARE, OTHER, SELFPAY ==
[2019-07-30 17:20] LABS: Abs Immature Grans 0.05 k/cumm (0.0-0.09); Absolute Eosinophil Count 0.09 k/cumm (0.0-0.7); Absolute Lymphocyte Count 0.49 k/cumm (1.2-3.4); Absolute Monocyte Count 0.99 k/cumm (0.11-0.7); Absolute Neutrophil Count 2.91 k/cumm (1.2-6.7); HCT 33.3 % (40.0-50.0); HGB 9.6 g/dL (13.5-17.5); Immature Grans % 1.1 %; Lymphocytes % 10.8; Mean Corp. HGB Concentration 28.8 g/dL (32.0-36.0); Mean Corpuscular Hemoglobin 27.2 pg (27.0-33.0); Mean Corpuscular Volume 94.3 fL (80-95); Mean Platelet Volume 12.7 fL (8.0-11.0); Monocytes % 21.9; Neutrophils % 64.2; Platelet Count 93 x1000/uL (130-400); RBC 3.53 m/cumm (4.50-6.00); RBC Distribution Width 20.1 % (11.8-14.1); White Blood Cell Count 4.53 k/cumm (4.4-10.8)
[2019-07-30 17:28] LABS: ALT 32 U/L (16-63); AST 30 U/L (15-37); Albumin 3.8 g/dL (3.4-5.0); Alkaline Phosphatase 152 U/L (46-116); Anion Gap 9.3 mmol/L (3-11); BUN 21 mg/dL (7-18); Bilirubin, Total 0.6 mg/dL (0.2-1.0); CO2 24.7 mmol/L (21.0-32.0); CREATININE 1.77 mg/dL (0.70-1.30); Calcium 8.2 mg/dL (8.5-10.1); Chloride 106 mmol/L (98-107); Estimated GFR 37.59 (mL/min/1.73m2); Glucose 101 mg/dL (74-106); Potassium 4.6 mmol/L (3.5-5.1); Sodium 140 mmol/L (136-145); Total Protein 7.5 g/dL (6.4-8.2)
[2019-07-30 17:45] LABS: Anisocytosis 3+; Diff Comment PLT Morph Reviewed
== END 2019-07-30 18:44 ==
LOC: LBN 18:24
PROVIDERS: PCP Family Medicine; Visit Provider Family Medicine
DX: D64.9 Anemia, unspecified (principal); D69.6 Thrombocytopenia, unspecified
CPT/HCPCS: 80053; 85025

== ENCOUNTER 2019-08-16 12:33 | Outpatient (REF) | payer MEDICARE, OTHER, SELFPAY ==
[2019-08-16 14:41] LABS: HCT 33.7 % (40.0-50.0); HGB 9.9 g/dL (13.5-17.5); Mean Corp. HGB Concentration 29.4 g/dL (32.0-36.0); Mean Corpuscular Hemoglobin 27.7 pg (27.0-33.0); Mean Corpuscular Volume 94.4 fL (80-95); Mean Platelet Volume 12.2 fL (8.0-11.0); RBC 3.57 m/cumm (4.50-6.00); RBC Distribution Width 19.8 % (11.8-14.1); White Blood Cell Count 7.42 k/cumm (4.4-10.8)
[2019-08-16 15:09] LABS: Platelet Count 81 x1000/uL (130-400)
[2019-08-16 15:11] LABS: Albumin 3.8 g/dL (3.4-5.0); Anion Gap 10.1 mmol/L (3-11); BUN 16 mg/dL (7-18); CO2 23.9 mmol/L (21.0-32.0); Calcium 8.4 mg/dL (8.5-10.1); Chloride 105 mmol/L (98-107); Estimated GFR 34.64 (mL/min/1.73m2); Glucose 127 mg/dL (74-106); PHOSPHORUS 2.3 mg/dL (2.6-4.7); Potassium 4.4 mmol/L (3.5-5.1); Sodium 139 mmol/L (136-145); Uric Acid 8.9 mg/dL (3.5-7.2)
[2019-08-16 15:45] LABS: Iron 42 ug/dL (65-175); Total Iron Binding Capacity 382 ug/dL (250-450); Transferrin Sat 11 % (20-55)
[2019-08-16 15:59] LABS: Ferritin 19 ng/mL (26-388); Folate > 20.0 ng/mL (8.6-20.0); Vitamin B12 747 pg/mL (193-986)
[2019-08-19 07:30] LABS: Vitamin D 25 Total 42.4 ng/ml (30-100)
== END 2019-08-16 12:53 ==
LOC: NCHCN 12:33
PROVIDERS: PCP Family Medicine; Visit Provider Family Medicine
DX: D50.8 Other iron deficiency anemias (principal); N18.3 Chronic kidney disease, stage 3 (moderate)
CPT/HCPCS: 80048; 80186; 82306; 85027; 82040; 82043; 82570; 82607; 82728; 82746; 83540; 83550; 83970; 84100; 84550

== ENCOUNTER 2019-08-18 11:09 | Outpatient (REF) | payer MEDICARE, OTHER, SELFPAY ==
[2019-08-18 14:27] LABS: COMMENT (LAB VIEW ONLY) 183.33 mg/dL
[2019-08-18 14:30] LABS: Microalb ug/mg Crea 94.6 ug/mg Cr
[2019-08-20 11:11] LABS: Parathyroid Hormone,Intact 97 pg/mL (19-88)
== END 2019-08-18 11:29 ==
LOC: LBN 11:09
PROVIDERS: PCP Family Medicine; Visit Provider Family Medicine
DX: R31.9 Hematuria, unspecified (principal); E27.40 Unspecified adrenocortical insufficiency
CPT/HCPCS: 82043; 82565; 82570; 83970

== ENCOUNTER 2019-08-22 07:26 | Outpatient (CLI) | payer MEDICARE, OTHER, SELFPAY ==
--- NOTE | 2019-08-22 13:22 | DI.US_ITS ---
EXAM: US RENAL CLINICAL HISTORY: CHRONIC KIDNEY DISEASE,RISING CREATININE,DECREASING KIDNEY. TECHNIQUE: Méndez scale, color and spectral Doppler were used. COMPARISON: CT CT ABDOMEN PELVIS WO from 01/02/2019 FINDINGS: Exam is limited by the patient's body habitus. Renal size in cm: Right: 12.8 left: 13.5 Echogenicity: Normal Hydronephrosis: No Cyst or mass: 2.1 centimeter cyst upper pole right kidney. Nephrolithiasis: 12 millimeter stone at the upper pole of the right kidney. No left renal calculi Other findings: None Bladder:Normal both ureteral jets were visualized. Prevoid vol: 198 cc Postvoid vol: 146 cc State was not well seen. IMPRESSION: 1. Elevated postvoid residual. 2. 12 millimeter nonobstructing stone at the upper pole of the right kidney. Small right renal cyst . DATA REPOSITORY:
== END 2019-08-22 07:46 ==
PROVIDERS: PCP Family Medicine; Visit Provider Internal Medicine Nephrology
DX: N18.9 Chronic kidney disease, unspecified (principal); R79.89 Other specified abnormal findings of blood chemistry; R39.198 Other difficulties with micturition
CPT/HCPCS: 76770

== ENCOUNTER 2019-09-10 00:37 | Outpatient (RCR) | payer MEDICARE, OTHER, SELFPAY ==
[2019-08-27] MEDS: Normal Saline Flush 10 ML SYR IVP (09:54)
[2019-08-27] MEDS: IRON SUCROSE COMPLEX 300 MG in Normal Saline 250 ML 176.667 MG IVPB (09:54)
[2019-09-03] MEDS: Normal Saline Flush 10 ML SYR IVP (09:58)
[2019-09-03] MEDS: IRON SUCROSE COMPLEX 300 MG in Normal Saline 250 ML 176.667 MG IVPB (09:58)
[2019-09-10] MEDS: Normal Saline Flush 10 ML SYR IVP ×2 (09:29→09:47)
[2019-09-10] MEDS: IRON SUCROSE COMPLEX 300 MG in Normal Saline 250 ML 176.667 MG IVPB (09:47)
== END 2019-09-24 23:59 | disposition home or self-care (01) ==
LOC: INF 00:37
PROVIDERS: PCP Family Medicine; Visit Provider Family Medicine
DX: N18.3 Chronic kidney disease, stage 3 (moderate) (principal); D63.1 Anemia in chronic kidney disease; D50.9 Iron deficiency anemia, unspecified
CPT/HCPCS: 96365; 96366; J1756

== ENCOUNTER 2019-09-26 01:36 | Outpatient (RCR) | payer MEDICARE, OTHER, SELFPAY ==
[2019-09-26] MEDS: Denosumab 60 MG/ML SYR SC (13:14)
== END 2019-10-25 23:59 | disposition home or self-care (01) ==
LOC: INF 01:36
PROVIDERS: PCP Family Medicine; Visit Provider Family Medicine
DX: N18.3 Chronic kidney disease, stage 3 (moderate) (principal); D63.1 Anemia in chronic kidney disease
CPT/HCPCS: 96372; J0897

== ENCOUNTER 2019-11-13 10:35 | Outpatient (REF) | payer MEDICARE, OTHER, SELFPAY ==
[2019-11-13 11:04] LABS: Absolute Basophil Count 0.02 10^3/uL (0.0-0.2); Absolute Eosinophil Count 0.18 10^3/uL (0.0-0.7); Absolute Lymphocyte Count 0.85 10^3/uL (1.2-3.4); Absolute Monocyte Count 1.39 10^3/uL (0.1-0.8); Absolute Neutrophil Count 4.08 10^3/uL (1.2-6.7); Basophils % 0.3; Eosinophils % 2.7; HCT 38.8 % (40.0-50.0); HGB 12.3 g/dL (13.5-17.5); Immature Grans % 1.5; Lymphocytes % 12.8; MCH 31.5 pg (27.0-33.0); MCHC 31.7 % (32.0-36.0); MCV 99.5 fL (80-95); MPV 14.3 fL (8.0-11.0); Neutrophils % 61.7; Nucleated RBC 0 %; RDW-SD 61.9 fL; WBC 6.62 10^3/uL (4.4-10.8)
[2019-11-13 11:05] LABS: Iron 65 ug/dL (65-175); Total Iron Binding Capacity 310 ug/dL (250-450); Transferrin Sat 21 % (20-55)
[2019-11-13 11:33] LABS: Anion Gap 12.5 mmol/L (3-11); BUN 28 mg/dL (7-18); CO2 22.5 mmol/L (21.0-32.0); CREATININE 1.52 mg/dL (0.70-1.30); Calcium 8.4 mg/dL (8.5-10.1); Chloride 105 mmol/L (98-107); Estimated GFR 44.69 (mL/min/1.73m2); Glucose 127 mg/dL (74-106); Sodium 140 mmol/L (136-145); Vitamin B12 1039 pg/mL (193-986)
[2019-11-13 11:51] LABS: Anisocytosis 1+; Diff Comment PLT Morph Reviewed; Platelet Count 63 10^3/uL (130-400); Polychromasia Present; Stomatocytes 2+
== END 2019-11-13 10:55 ==
LOC: LBN 10:35
PROVIDERS: PCP Family Medicine; Visit Provider Family Medicine
DX: D51.8 Other vitamin B12 deficiency anemias (principal); D50.0 Iron deficiency anemia secondary to blood loss (chronic); N18.9 Chronic kidney disease, unspecified
CPT/HCPCS: 80048; 82040; 82607; 83540; 83550; 85025

== ENCOUNTER 2019-12-03 19:46 | Outpatient (REF) | payer MEDICARE, OTHER, SELFPAY ==
[2019-12-03 16:03] LABS: Abs Immature Grans 0.07 10^3/uL (0.0-0.06); Absolute Basophil Count 0.01 10^3/uL (0.0-0.2); Absolute Eosinophil Count 0.09 10^3/uL (0.0-0.7); Absolute Lymphocyte Count 0.56 10^3/uL (1.2-3.4); Absolute Neutrophil Count 2.76 10^3/uL (1.2-6.7); Basophils % 0.2; Eosinophils % 2.1; HCT 36.1 % (40.0-50.0); HGB 11.2 g/dL (13.5-17.5); Immature Grans % 1.6; Lymphocytes % 13.1; MCH 31.5 pg (27.0-33.0); MCV 101.7 fL (80-95); MPV 13.5 fL (8.0-11.0); Monocytes % 18.6; Neutrophils % 64.4; Nucleated RBC 0 %; Platelet Count 65 10^3/uL (130-400); RBC 3.55 10^6/uL (4.36-5.78); RDW 15.9 % (11.8-14.1); RDW-SD 59.6 fL; WBC 4.29 10^3/uL (4.4-10.8)
[2019-12-03 16:26] LABS: Anion Gap 10.9 mmol/L (3-11); BUN 13 mg/dL (7-18); CO2 22.1 mmol/L (21.0-32.0); CREATININE 1.59 mg/dL (0.70-1.30); Calcium 7.7 mg/dL (8.5-10.1); Chloride 107 mmol/L (98-107); Estimated GFR 42.43 (mL/min/1.73m2); Glucose 120 mg/dL (74-106); Potassium 4.4 mmol/L (3.5-5.1); Sodium 140 mmol/L (136-145)
[2019-12-04 12:31] LABS: Albumin 3.5 g/dL (3.4-5.0)
== END 2019-12-03 20:06 ==
LOC: LBN 19:46
PROVIDERS: PCP Family Medicine; Visit Provider Family Medicine
DX: N18.9 Chronic kidney disease, unspecified (principal); D50.0 Iron deficiency anemia secondary to blood loss (chronic); I62.02 Nontraumatic subacute subdural hemorrhage; R79.89 Other specified abnormal findings of blood chemistry
CPT/HCPCS: 80048; 82040; 85025

== ENCOUNTER 2019-12-09 12:05 | Outpatient (REF) | payer MEDICARE, OTHER, SELFPAY ==
[2019-12-09 12:23] LABS: Calcium 8.4 mg/dL (8.5-10.1)
== END 2019-12-09 12:25 ==
LOC: NCHCN 12:05
PROVIDERS: PCP Family Medicine; Visit Provider Family Medicine
DX: E83.51 Hypocalcemia (principal)
CPT/HCPCS: 82310

== ENCOUNTER 2019-12-19 16:22 | Outpatient (REF) | payer MEDICARE, OTHER, SELFPAY ==
[2019-12-19 16:43] LABS: Abs Immature Grans 0.16 10^3/uL (0.0-0.06); Absolute Basophil Count 0.02 10^3/uL (0.0-0.2); Absolute Eosinophil Count 0.16 10^3/uL (0.0-0.7); Absolute Lymphocyte Count 0.66 10^3/uL (1.2-3.4); Absolute Monocyte Count 1.31 10^3/uL (0.1-0.8); Absolute Neutrophil Count 3.98 10^3/uL (1.2-6.7); Basophils % 0.3; Eosinophils % 2.5; HCT 33.3 % (40.0-50.0); HGB 10.7 g/dL (13.5-17.5); Immature Grans % 2.5; Lymphocytes % 10.5; MCH 32.3 pg (27.0-33.0); MCHC 32.1 % (32.0-36.0); MCV 100.6 fL (80-95); MPV 12.6 fL (8.0-11.0); Monocytes % 20.8; Neutrophils % 63.4; Nucleated RBC 0 %; Platelet Count 61 10^3/uL (130-400); RBC 3.31 10^6/uL (4.36-5.78); RDW 16.2 % (11.8-14.1); RDW-SD 59.4 fL; WBC 6.29 10^3/uL (4.4-10.8)
== END 2019-12-19 16:42 ==
LOC: NCHCN 16:22
PROVIDERS: PCP Family Medicine; Visit Provider Family Medicine
DX: I48.0 Paroxysmal atrial fibrillation (principal); F34.1 Dysthymic disorder
CPT/HCPCS: 85025

== ENCOUNTER 2019-12-20 15:20 | Outpatient (REF) | payer MEDICARE, OTHER, SELFPAY ==
[2019-12-20 16:07] LABS: Reticulocyte 3.6 % (0.5-2.4)
[2019-12-20 16:53] LABS: Ferritin 63 ng/mL (26-388)
== END 2019-12-20 15:40 ==
LOC: LBN 15:20
PROVIDERS: PCP Family Medicine; Visit Provider Family Medicine
DX: D50.9 Iron deficiency anemia, unspecified (principal)
CPT/HCPCS: 82728; 85045

== ENCOUNTER 2019-12-30 15:44 | Outpatient (REF) | payer MEDICARE, OTHER, SELFPAY ==
[2019-12-30 16:48] LABS: Abs Immature Grans 0.03 10^3/uL (0.0-0.06); Absolute Basophil Count 0.01 10^3/uL (0.0-0.2); Absolute Eosinophil Count 0.11 10^3/uL (0.0-0.7); Absolute Lymphocyte Count 0.57 10^3/uL (1.2-3.4); Absolute Monocyte Count 0.65 10^3/uL (0.1-0.8); Absolute Neutrophil Count 3.08 10^3/uL (1.2-6.7); Basophils % 0.2; Eosinophils % 2.5; HCT 39.4 % (40.0-50.0); HGB 12.1 g/dL (13.5-17.5); Immature Grans % 0.7; Lymphocytes % 12.8; MCH 31.3 pg (27.0-33.0); MCHC 30.7 % (32.0-36.0); MCV 101.8 fL (80-95); MPV 13.1 fL (8.0-11.0); Monocytes % 14.6; Neutrophils % 69.2; Nucleated RBC 0 %; RBC 3.87 10^6/uL (4.36-5.78); RDW 15.7 % (11.8-14.1); RDW-SD 58.1 fL; WBC 4.45 10^3/uL (4.4-10.8)
[2019-12-30 17:00] LABS: Platelet Count 73 10^3/uL (130-400)
[2019-12-30 17:08] LABS: Calcium 8.6 mg/dL (8.5-10.1)
== END 2019-12-30 16:04 ==
LOC: NCHCN 15:44
PROVIDERS: PCP Family Medicine; Visit Provider Family Medicine
DX: E27.1 Primary adrenocortical insufficiency (principal); E83.51 Hypocalcemia; N18.30 Chronic kidney disease, stage 3 unspecified; F34.1 Dysthymic disorder; I48.0 Paroxysmal atrial fibrillation
CPT/HCPCS: 82310; 85025

== ENCOUNTER 2020-01-12 05:32 | Inpatient (IN) | payer MEDICARE, OTHER, SELFPAY ==
[2020-01-12 05:35] VITALS: BP 151/73; PULSE 74; RESP 20; TEMP 36.5; O2SAT 96
--- NOTE | 2020-01-12 05:45 | DI.CT_ITS ---
EXAM: CT ABDOMEN PELVIS W CLINICAL HISTORY: abd pain; distended. TECHNIQUE: Imaging Protocol: Axial computed tomography images with coronal and sagittal reformatted images were created and reviewed CONTRAST MATERIAL: Intravenous: Omnipaque 350 Contrast volume:100 cc Oral: / no COMPARISON: CT CT ABDOMEN PELVIS WO from 01/02/2019 FINDINGS: ABDOMEN: Lung Bases: Stable 3 millimeter right middle lobe nodule. Liver: Normal density. No measurable mass. Gallbladder and biliary tract: Status post cholecystectomy. Pancreas: Normal density, no abnormal calcifications or inflammatory process. Spleen: Normal. Kidneys: Normal size, contour and axis. 11 millimeter stone upper pole right kidney. Small bilatera l renal cysts. No hydronephrosis or ureteral calculi. Adrenal glands: No masses seen. Abdominal Aorta: Abdominal portion non-dilated. Heavily calcified. PELVIS: Bladder: Symmetric distention, no gross wall thickening. Bowel: Status post colectomy. Left-sided ostomy containing nonobstructed loops of small bowel. Dila araseli loops of small bowel, greatest in the upper abdomen. No free air or free fluid. No pneumatosis. Peritoneal cavity: No ascites, collection or mesenteric inflammatory response. Bones: Degenerative changes and scoliosis. Osteoporosis. Stable L1 compression fracture. Stable mi ld declivities in the T12 and L2 vertebral bodies. Reproductive organs: Status post prostatectomy. Lymph nodes: Unremarkable. Impression: Findings consistent with a small-bowel obstruction. RADIATION DOSE DELIVERED: 1,489.08mGy.cm Total DLP DATA REPOSITORY: All CT scans at this facility are submitted to the National Radiology Data Registry (NRDR) Dose Index Registry (DIR) with the [employer] (ACR). RADIATION OPTIMIZATION: All CT scans at this facility use at least one of these dose optimization te chniques: automated exposure control; mA and/or kV adjustment per patient size (includes targeted exa ms where dose is matched to clinical indication); or iterative reconstruction.
--- NOTE | 2020-01-12 05:54 | ED.GENADUL_ITS ---
Discharge Plan Disposition Patient Disposition: [facility] INPATIENT Condition: Fair Discharge Details Chief Complaint: Abd Prob Clinical Impression: Small bowel obstruction Primary Care Provider: Mitra Champion ED Provider: Phong Riggins [place] Meds and New Rx's Prescriptions: No Action budesonide-formoterol [Symbicort] 160-4.5 mcg/actuation HFA aerosol inhaler 1 puff Inhalation BID Qty: 3 RF: 3 Vimpat 100 mg tablet 100 mg PO BID Qty: 180 RF: 3 fludrocortisone 0.1 MG tablet 0.15 mg PO DAILY Qty: 90 RF: 3 folic acid 1 MG tablet 1 mg PO DAILY RF: 0 montelukast 10 MG tablet 10 mg PO DAILY Qty: 90 RF: 3 Prolia 60 MG/1 ML syringe 60 mg SQ q6 months RF: 0 (DME) BD Regular [place]vel [place] 1 EACH needle 1 ea Miscellaneous monthly Qty: 12 RF: 0 epinephrine 0.3 MG/SYR auto-injector 0.3 mg Sub-Q PRN PRNRF: 0 methotrexate sodium 10 mg Tablet 10 mg PO QWEEK RF: 0 pantoprazole 40 mg tablet,delayed release (DR/EC) 40 mg PO DAILY RF: 0 ergocalciferol (vitamin D2) 1,250 mcg (50,000 unit) capsule 50,000 unit PO QMONTH RF: 0 ondansetron HCl 4 mg Tablet 4 mg PO .Q6H, PRN RF: 0 fluticasone propionate 50 mcg/actuation spray,suspension 2 spray NS HS RF: 0 hydrocortisone 5 mg Tablet 5 mg PO BID@0800,1700 RF: 0 loperamide [Imodium A-D] 2 mg Tablet 2 mg PO QID RF: 0 hydrocortisone 20 mg Tablet 20 mg PO DAILY RF: 0 cyanocobalamin (vitamin B-12) 1,000 mcg/mL solution 1,000 mcg IM .Q 60 DAYS RF: 0 mirtazapine 15 mg Tablet 3.75 mg PO .QHS RF: 0 multivitamin,tx-minerals Tablet 1 tab PO DAILY RF: 0 Medical Decision Making Patient with minimal ostomy output overnight. Abdomen distended and tympanic with previous history of bowel obstruction. Will place IV and start fluids. Check labs and CT scan. IV Tylenol for discomfort. 7:50 AM: Patient laboratory studies unremarkable. Mild anemia. Normal white count. Stable kidney function. CT scan does show bowel obstruction. Patient comfortable after IV Tylenol. Continues to have no nausea vomiting. Case discussed with surgery, Dr. Sibley. She has accepted patient to her service for further management. Medical Records Medical records reviewed: Yes I reviewed the patient's medical records. Lab Data Lab results reviewed: Yes I reviewed the patient's lab results. HPI General Mode of arrival: EMS . Date/Time Provider Initiated Documentation: 01/12/20 05:49 . Limitations to Documentation: no limitations . Information obtained by: patient, RN notes reviewed and old records reviewed . HPI Narrative: Patient presents to ED from local [facility] with complaint of decreased ileostomy output and increased abdominal distention with associated pain. Patient reports started to have discomfort last evening. He did not dinner. He has had increased pain and distention overnight. He denies nausea or vomiting. He has had prior bowel obstructions. He denies fever, cough, shortness of breath, chest pain. He is still making urine. Sent in for evaluation for possible bowel obstruction. Related Data Home Medications Medication Instructions Recorded Confirmed epinephrine 0.3 mg SUB-Q PRN PRN 10/07/14 01/12/20 fludrocortisone 0.15 mg PO DAILY #90 tab-cap 03/17/16 01/12/20 folic acid 1 mg PO DAILY 10/24/16 01/12/20 montelukast 10 mg PO DAILY #90 tab-cap 01/03/17 01/12/20 Prolia 60 mg SQ q6 months 03/15/17 01/12/20 BD Regular [place] #12 ea 11/16/17 12/26/18 budesonide-formoterol HFA 160 1 puff INHALATION BID #3 canister 02/07/18 01/12/20 mcg-4.5 mcg/actuation aerosol inhaler cyanocobalamin (vitamin B-12) 1,000 mcg IM .Q 60 DAYS 07/30/18 01/12/20 fluticasone propionate 2 spray NS HS 07/30/18 01/12/20 hydrocortisone 5 mg PO BID@0800,1700 07/30/18 01/12/20 hydrocortisone 20 mg PO DAILY 07/30/18 01/12/20 loperamide [Imodium A-D] 2 mg PO QID 07/30/18 01/12/20 ondansetron HCl 4 mg PO .Q6H, PRN 07/30/18 01/12/20 lacosamide 100 mg tablet 100 mg PO BID #180 tab 11/14/18 01/12/20 mirtazapine 3.75 mg PO .QHS 01/02/19 01/12/20 multivitamin,tx-minerals 1 tab PO DAILY 01/02/19 01/12/20 ergocalciferol (vitamin D2) 50,000 unit PO QMONTH 01/12/20 01/12/20 methotrexate sodium 10 mg PO QWEEK 01/12/20 01/12/20 pantoprazole 40 mg PO DAILY 01/12/20 01/12/20 Previous Rx's Medication Instructions Recorded montelukast 10 mg PO DAILY #90 tab-cap 01/03/17 BD Regular [place]vel [place] #12 ea 11/16/17 budesonide-formoterol HFA 160 1 puff INHALATION BID #3 canister 02/07/18 mcg-4.5 mcg/actuation aerosol inhaler lacosamide 100 mg tablet 100 mg PO BID #180 tab 11/14/18 Allergies Allergy/AdvReac Type Severity Reaction Status Date / Time latex Allergy Intermediate rash, Verified 01/12/20 05:57 itching plasma protein fraction Allergy Intermediate Hives Verified 01/12/20 05:57 acebutolol Allergy Unknown Verified 01/12/20 05:57 promethazine Allergy Unknown Verified 01/12/20 05:57 pseudoephedrine Allergy Unknown Verified 01/12/20 05:57 terazosin Allergy Unknown Verified 01/12/20 05:57 tramadol HCl [From Ultracet] Allergy Unknown Verified 01/12/20 05:57 ceftriaxone Allergy Unverified 01/12/20 05:57 chlorpheniramine Allergy Unverified 01/12/20 05:57 venom-honey bee Allergy Verified 01/12/20 05:57 [bee venom (honey bee)] ferrous sulfate AdvReac Severe Stomach Verified 01/12/20 05:57 aches tamsulosin HCl [From Flomax] AdvReac Severe Dizziness/L Verified 01/12/20 05:57 ightheade Antihistamines - Alkylamine AdvReac Unknown affected Verified 01/12/20 05:57 prostate cefuroxime AdvReac Unknown daark urine Verified 01/12/20 05:57 plasma human Allergy Intermediate Hives Uncoded 01/12/20 05:57 General Stated Complaint: Abd Prob SANTOSH: 3 Review of Systems Narrative: 01/07 Review of Systems completed and is negative except as stated above in HPI (Systems reviewed: Const, Eyes, ENT, Resp, CV, GI, , MSK, Skin, Neuro) [facility] Medical History (Updated 01/12/20 @ 07:53 by Phong Riggins MD) Abdominal wall fistula [place]'s disease s/p excision of renal adenomas Asthma Chronic deep vein thrombosis (DVT) CKD (chronic kidney disease) stage 3, GFR 30-59 ml/min (11/06/15) COPD (chronic obstructive pulmonary disease) Depression (08/14/17) H/O ulcerative colitis Hypertension Ileostomy in place DEVORAH on CPAP (11/06/15) Rheumatoid arthritis (11/06/15) Seizure disorder Subdural hematoma Surgical History Cholecystectomy (02/15/16) [facility] cystoureteroscopy,lithotrypsy (05/11/15) with L stent insertion Extraction of cataract (07/28/16) R eye surgeon Amanda Ochoa MD Fracture, Closed Treatment (02/15/16) [facility]--Distal Rt Radius Fx hernia repair (04/08/99) parastomal R/trelex mesh repair retinal breaks (12/24/03) Total colectomy (09/25/97) transsphenoidal hypophysectomy (11/15/93) Transurethral prostatectomy (11/24/14) Family History Mother , CVA Stroke Father , lung CA No problems noted. Sister , COPD No problems noted. Brother , unknown at age 29. No problems noted. Brother Diabetes ASCVD (arteriosclerotic cardiovascular disease) Brother No problems noted. Sister Diabetes Sister No problems noted. Other Arthritis Social History Smoking/Tobacco Use Status: Former Tobacco Use Alcohol Intake: current Alcohol Intake frequency: holidays/special occasions only Alcohol type: beer Drug use: Never Substance use type: does not use Do you feel safe at home: Yes Do you feel safe in your relationship?: Yes Exam Narrative Exam Narrative: Vitals: Afebrile. Elevated systolic pressure otherwise normal vitals and normal room air pulse ox. Const: WDWN elderly male in NAD. HEENT: NC/AT. Normal facial exam. Eyes: Normal conjunctiva and sclera. Neck: Supple. Trachea midline. Lungs: Normal respiratory effort. Lungs are clear. Cor: RRR without murmur/gallop. Good radial pulses. GI: Distended and tympanic. Still soft. Nontender to palpation. Ostomy in left lower quadrant. Stoma appears normal. Neuro: A+O x 3. Normal speech, mentation, gait. Cranial nerves II - XII grossly intact. No gross motor or sensory deficit. Ext: No C/C/E. Skin: Warm and dry without rash. Course Vital Signs Vital signs: Vital Signs Temperature 97.7 F 01/12/20 05:35 Pulse 74 01/12/20 05:35 Respiratory Rate 20 01/12/20 05:35 Blood Pressure 151/73 H 01/12/20 05:35 Pulse Oximetry 96 01/12/20 05:35 Temperature 97.7 F 01/12/20 05:35 Temperature Source Tympanic 01/12/20 05:35 Pulse 74 01/12/20 05:35 Respiratory Rate 20 01/12/20 05:35 Respiratory Effort 01/12/20 05:38 Blood Pressure 151/73 H 01/12/20 05:35 Pulse Oximetry 96 01/12/20 05:35 Oxygen Delivery Method Room Air 01/12/20 05:35 Oxygen Flow Rate 0 01/12/20 05:35 Pain Level 2 01/12/20 05:35
[2020-01-12 06:04] LABS: Abs Immature Grans 0.07 10^3/uL (0.0-0.06); Absolute Basophil Count 0.01 10^3/uL (0.0-0.2); Absolute Eosinophil Count 0.13 10^3/uL (0.0-0.7); Absolute Lymphocyte Count 0.77 10^3/uL (1.2-3.4); Absolute Monocyte Count 1.87 10^3/uL (0.1-0.8); Absolute Neutrophil Count 3.59 10^3/uL (1.2-6.7); Basophils % 0.2; HCT 38.5 % (40.0-50.0); Immature Grans % 1.1; MCHC 31.2 % (32.0-36.0); MCV 102.7 fL (80-95); MPV 11.9 fL (8.0-11.0); Neutrophils % 55.7; Nucleated RBC 0 %; RBC 3.75 10^6/uL (4.36-5.78); RDW 15.8 % (11.8-14.1); RDW-SD 58.8 fL; WBC 6.44 10^3/uL (4.4-10.8)
[2020-01-12] MEDS: ACETAMINOPHEN 1,000 MG/100 ML BTL 400 MG IVPB ×2 (06:09→16:03)
[2020-01-12 06:25] LABS: ALT 26 U/L (16-63); AST 43 U/L (15-37); Albumin 3.4 g/dL (3.4-5.0); Alkaline Phosphatase 137 U/L (46-116); Anion Gap 7.2 mmol/L (3-11); BUN 14 mg/dL (7-18); Bilirubin, Total 0.7 mg/dL (0.2-1.0); CO2 26.8 mmol/L (21.0-32.0); CREATININE 1.33 mg/dL (0.70-1.30); Calcium 8.6 mg/dL (8.5-10.1); Chloride 106 mmol/L (98-107); Estimated GFR 52.14 (mL/min/1.73m2); Glucose 97 mg/dL (74-106); Lipase 146 U/L (73-393); Sodium 140 mmol/L (136-145); Total Protein 6.7 g/dL (6.4-8.2)
[2020-01-12 06:27] LABS: Platelet Count 60 10^3/uL (130-400)
[2020-01-12 06:28] LABS: Diff Comment Agrees w/ Instrument; RBC Morphology Normal
[2020-01-12] MEDS: Lactated Ringers 1,000 ML 125 ML IV (06:28)
[2020-01-12] MEDS: Omnipaque 350 MG/ML 100 ML BTL IV (06:50)
[2020-01-12] MEDS: Normal Saline - Diluent 50 ML VIAL IV (06:52)
--- NOTE | 2020-01-12 07:42 | DI.VRAD_ITS ---
PROCEDURE INFORMATION: Exam: CT Abdomen And Pelvis With Contrast Exam date and time: 01/12/2020 5:52 AM Age: 79 years old Clinical indication: Abdominal pain; Other: Abd pain; Distended, HX of bowel obstruction TECHNIQUE: Imaging protocol: Computed tomography of the abdomen and pelvis with intravenous contrast. Radiation optimization: All CT scans at this facility use at least one of these dose optimization techniques: automated exposure control; mA and/or kV adjustment per patient size (includes targeted exams where dose is matched to clinical indication); or iterative reconstruction. Contrast material: OMNIPAQUE 350; Contrast volume: 100 ml; Contrast route: INTRAVENOUS (IV); COMPARISON: CT ABDOMEN PELVIS WO 01/02/2019 12:08 PM FINDINGS: Lungs: There is a stable 3 mm nodule in the subpleural region of the right middle lobe. Liver: Normal. No mass. Gallbladder and bile ducts: Cholecystectomy. No ductal dilation. Pancreas: Normal. No ductal dilation. Spleen: Normal. No splenomegaly. Adrenals: Normal. No mass. Kidneys and ureters: Kidneys enhance symmetrically. Stable exophytic 2.4 cm cyst off the right kidney. There is a nonobstructing right renal 1.1 cm stone. There are bilateral tiny renal cortical hypodensities likely cysts but incompletely characterized. Stomach and bowel: Colectomy. Stomach is unremarkable. There are dilated fluid-filled loops of small bowel throughout the abdomen measuring up to 7.4 cm in the midline upper abdomen . No definite transition zone seen however loops taper to normal caliber at the level of the ostomy. Appendix: Surgically absent. Intraperitoneal space: Unremarkable. No free air. No significant fluid collection. Vasculature: Atherosclerotic aorta without aneurysm. Lymph nodes: Unremarkable. No enlarged lymph nodes. Urinary bladder: Unremarkable as visualized. Reproductive: Unremarkable as visualized. Bones/joints: Stable T12-L2 compression deformities. Osteopenia and thoracolumbar mild scoliosis. Soft tissues: There is a small [place] hernia containing portion of the small bowel wall in the left parastomal hernia. IMPRESSION: Partial small bowel obstruction . Transition zone is not definitely identified however loops taper to normal caliber in the deep pelvis. Right nephrolithiasis. Total colectomy and left lower quadrant ileostomy. Dictated and Authenticated by: Elvia Locke MD. Ordering:CHRISTOFER Darling MD
[2020-01-12 08:30] VITALS: BP 139/59; PULSE 71; RESP 16; TEMP 37; O2SAT 95
[2020-01-12 08:47] VITALS: BP 148/73; PULSE 74; RESP 18; TEMP 37; O2SAT 96
--- NOTE | 2020-01-12 10:12 | HPE_ITS ---
Date of service: 01/12/20 Time of Service: 10:12 Assessment and Plan Assessment and plan (1) DVT prophylaxis: Status: Acute Assessment and plan: Patients platelets are only 60 today. Will Hold on Lovenox for now. Will order SCD's and have encouraged ambulation (2) Seizure disorder: Status: Chronic Assessment and plan: Continue lacosamide 100 mg BID (3) CKD (chronic kidney disease) stage 3, GFR 30-59 ml/min: Status: Chronic Assessment and plan: Creatinine is stable Will monitor Qualifiers: Chronic kidney disease stage 3 subtype: unspecified whether 3a or 3b Qualified Code(s): N18.30 - Chronic kidney disease, stage 3 unspecified (4) Ileostomy status: Status: Chronic Assessment and plan: LLQ ileostomy with some liquid stool and air. Unable to palpated the Richters hernia. No tenderness around the ileostomy (5) Montcalm's disease: Status: Chronic Assessment and plan: Will switch his hydrocortizone to IV while he is NPO Continue pofludrocortisone po (6) Asthma: Status: Chronic Assessment and plan: Continue his inhalors Has albuterol nebs order as needed Qualifiers: Asthma severity: unspecified severity Asthma persistence: intermittent Asthma complication type: uncomplicated Qualified Code(s): J45.20 - Mild intermittent asthma, uncomplicated (7) GERD (gastroesophageal reflux disease): Status: Chronic Assessment and plan: Switch from po PPI to IV Protonix Qualifiers: Esophagitis presence: esophagitis presence not specified Qualified Code (s): K21.9 - Gastro-esophageal reflux disease without esophagitis (8) Small bowel obstruction: Status: Acute Assessment and plan: CT scan with partial SBO. There is liquid stool and air in the ostomy Patient with crampy abdominal pain and distension Continue NPO status NG if he starts to have vomiting If unable to resolve the obstruction will [place] [facility] [place] to his complicated PMHx both surgical and Medical History of Present Illness History of Present Illness Chief Complaint: small bowel obstruction Consults Consult date: 01/12/20 Requesting physician: Phong Riggins Narrative: Patient presented to ED from local [facility] with complaint of decreased ileostomy output and increased abdominal distention with associated pain. Patient reports that he started to have discomfort last evening. He did not eat dinner. He has had increased pain and distention overnight. He denies nausea or vomiting. He has had prior bowel obstructions. He denies fever, cough, shortness of breath, chest pain. He is still making urine. His Past Surgical history is quite extensive. He tells me that he has had numerous bowel surgeries. First surgery was for colon cancer. He is s/p total c ollectomy and ileostomy. he has had a cholecystectomy, adrenal mass excision, ileostomy creation and repair of hernia. Ileostomy takedown due to hernia and repositioning to the [facility]. he has had Brain surgery for a bleed, He has had transphenoidal hypophysectomy. He has had multiple small bowel obstructions in the past. States that this is the first obstruction since his ostomy was moved to the [facility]. He is having crampy abdominal pain. Discussed DNR Status. He doesn't want compressions if his heart stops. He is open to intubation if it is believed to be short term. He is open to possible s urgery for his obstruction if it doesn't resolve. All of his surgeries have been done at [facility] except for his brain bleed evacuation. If his obstruction doesn't resolve will will transfer the patient to [facility] [place]. CT scan was done in the ER and it showed a partial SBO without transition. CT scan reviewed by me. CT ABDOMEN PELVIS FINDINGS: Lungs: There is a stable 3 mm nodule in the subpleural region of the right middle lobe. Liver: Normal. No mass. Gallbladder and bile ducts: Cholecystectomy. No ductal dilation. Pancreas: Normal. No ductal dilation. Spleen: Normal. No splenomegaly. Adrenals: Normal. No mass. Kidneys and ureters: Kidneys enhance symmetrically. Stable exophytic 2.4 cm cyst off the right kidney. There is a nonobstructing right renal 1.1 cm stone. There are bilateral tiny renal cortical hypodensities likely cysts but incompletely characterized. Stomach and bowel: Colectomy. Stomach is unremarkable. There are dilated fluid-filled loops of small bowel throughout the abdomen measuring up to 7.4 cm in the midline upper abdomen . No definite transition zone seen however loops taper to normal caliber at the level of the ostomy. Appendix: Surgically absent. Intraperitoneal space: Unremarkable. No free air. No significant fluid collection. Vasculature: Atherosclerotic aorta without aneurysm. Lymph nodes: Unremarkable. No enlarged lymph nodes. Urinary bladder: Unremarkable as visualized. Reproductive: Unremarkable as visualized. Bones/joints: Stable T12-L2 compression deformities. Osteopenia and thoracolumbar mild scoliosis. Soft tissues: There is a small Castelan hernia containing portion of the small bowel wall in the left parastomal hernia. IMPRESSION: Partial small bowel obstruction . Transition zone is not definitely identified however loops taper to normal caliber in the deep pelvis. Right nephrolithiasis. Total colectomy and left lower quadrant ileostomy. Review of Systems Constitutional Constitutional: Denies fever(s), Denies headache(s), Reports poor appetite and Denies weight loss Eyes Eyes: Denies change in vision ENT Ears, Nose, Mouth, and Throat: Denies dysphagia, Denies headache(s) and Denies hoarseness Cardiovascular Cardiovascular: Denies chest pain, Denies irregular heart rhythm, Denies pal pitations and Denies dyspnea Respiratory Respiratory: Denies cough and Denies dyspnea Gastrointestinal Gastrointestinal: Reports as per HPI, Denies dysphagia, Denies dyspepsia and Denies heartburn Genitourinary Genitourinary: Reports system reviewed and no additional complaints, except as documented Musculoskeletal Musculoskeletal: Reports system reviewed and no additional complaints, except as documented Integumentary/Breasts Skin/Breast: Reports system reviewed and no additional complaints, except as documented Neurologic Neurologic: Reports system reviewed and no additional complaints, except as documented and Denies headache(s) Psychiatric Psychiatric: Reports system reviewed and no additional complaints, except as documented Endocrine Endocrine: Reports system reviewed and no additional complaints, except as documented and Denies palpitations Hematologic/Lymphatic Hematologic/Lymphatic: Reports system reviewed and no additional complaints, except as documented Allergic/Immunologic Allergic/Immunologic: Reports system reviewed and no additional complaints, except as documented [facility] Medical History (Updated 01/12/20 @ 11:42 by Krissy Sibley MD) Abdominal adhesions (11/06/15) Abdominal wall fistula Montcalm's disease s/p excision of renal adenomas Allergic rhinitis (11/06/15) Ankylosing spondylitis Asthma Atrial fibrillation (11/06/15) Cholecystitis, acute with cholelithiasis Cholelithiasis Cholestatic jaundice Chronic back pain Chronic deep vein thrombosis (DVT) of lower extremity (11/06/15) Chronic systolic CHF (congestive heart failure) (11/06/15) CKD (chronic kidney disease) stage 3, GFR 30-59 ml/min (11/06/15) COPD (chronic obstructive pulmonary disease) Current use of terminal operator anticoagulation (11/06/15) 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 Iron deficiency anemia (11/06/15) Lichen planus (11/06/15) Malignant neoplasm of colon (11/06/15) Obesity (11/06/15) Obstructive uropathy DEVORAH on CPAP (11/06/15) Osteopenia (11/06/15) Dexa T -2.1 femoral neck 2009 Dexa T -1.8 LS spine 2006 Osteoporosis of forearm (08/19/16) T-score -3.7 [facility] Rheumatoid arthritis (11/06/15) Seizure disorder Small bowel obstruction (02/27/14) Subdural hematoma Uncomplicated asthma (11/06/15) Urinary retention UTI (urinary tract infection) Weakness Surgical History (Updated 01/12/20 @ 11:30 by Krissy Sibley MD) Cholecystectomy (02/15/16) [facility] cystoureteroscopy,lithotrypsy (05/11/15) with L stent insertion Extraction of cataract (07/28/16) R eye surgeon Amanda Ochoa MD Fracture, Closed Treatment (02/15/16) [facility]Distal Rt Radius Fx H/O surgical procedure (~09/1997) a. total proctocolectomy with end ileostomy in stages b. Appendectomy c. Hernia repair d. excision of renal adenomas H/O total adrenalectomy Bilateral hernia repair (04/08/99) parastomal R/trelex mesh repair retinal breaks (12/24/03) S/P brain surgery for evacuation of a bleed- [facility] S/P ileostomy ileostomy moved from RLQ to LLQ- [facility] transsphenoidal hypophysectomy (11/15/93) Transurethral prostatectomy (11/24/14) Family History Mother , CVA Stroke Father , lung CA No problems noted. Sister , COPD No problems noted. Brother , unknown at age 29. No problems noted. Brother Diabetes ASCVD (arteriosclerotic cardiovascular disease) Brother No problems noted. Sister Diabetes Sister No problems noted. Other Arthritis Social History Smoking/Tobacco Use Status: Former Tobacco Use Alcohol Intake: current Alcohol Intake frequency: holidays/special occasions only Alcohol type: beer Drug use: Never Substance use type: does not use Do you feel safe at home: Yes Do you feel safe in your relationship?: Yes Meds Home Medications and Allergies Home Medications Medication Instructions Recorded Confirmed Type epinephrine 0.3 mg SUB-Q PRN PRN 10/07/14 01/12/20 History fludrocortisone 0.15 mg PO DAILY #90 tab-cap 03/17/16 01/12/20 History folic acid 1 mg PO DAILY 10/24/16 01/12/20 History montelukast 10 mg PO DAILY #90 tab-cap 01/03/17 01/12/20 Rx Prolia 60 mg SQ q6 months 03/15/17 01/12/20 History BD Regular Bevel Mcdavid #12 ea 11/16/17 12/26/18 Rx budesonide-formoterol HFA 160 1 puff INHALATION BID #3 canister 02/07/18 01/12/20 Rx mcg-4.5 mcg/actuation aerosol inhaler cyanocobalamin (vitamin B-12) 1,000 mcg IM .Q 60 DAYS 07/30/18 01/12/20 History fluticasone propionate 2 spray NS HS 07/30/18 01/12/20 History hydrocortisone 5 mg PO BID@0800,1700 07/30/18 01/12/20 History hydrocortisone 20 mg PO DAILY 07/30/18 01/12/20 History loperamide [Imodium A-D] 2 mg PO QID 07/30/18 01/12/20 History ondansetron HCl 4 mg PO .Q6H, PRN 07/30/18 01/12/20 History lacosamide 100 mg tablet 100 mg PO BID #180 tab 11/14/18 01/12/20 Rx mirtazapine 3.75 mg PO .QHS 01/02/19 01/12/20 History multivitamin,tx-minerals 1 tab PO DAILY 01/02/19 01/12/20 History ergocalciferol (vitamin D2) 50,000 unit PO QMONTH 01/12/20 01/12/20 History methotrexate sodium 10 mg PO QWEEK 01/12/20 01/12/20 History pantoprazole 40 mg PO DAILY 01/12/20 01/12/20 History Allergies Allergy/AdvReac Type Severity Reaction Status Date / Time latex Allergy Intermediate rash, Verified 01/12/20 05:57 itching plasma protein fraction Allergy Intermediate Hives Verified 01/12/20 05:57 acebutolol Allergy Unknown Verified 01/12/20 05:57 promethazine Allergy Unknown Verified 01/12/20 05:57 pseudoephedrine Allergy Unknown Verified 01/12/20 05:57 terazosin Allergy Unknown Verified 01/12/20 05:57 tramadol HCl [From Ultracet] Allergy Unknown Verified 01/12/20 05:57 ceftriaxone Allergy Unverified 01/12/20 05:57 chlorpheniramine Allergy Unverified 01/12/20 05:57 venom-honey bee Allergy Verified 01/12/20 05:57 [bee venom (honey bee)] ferrous sulfate AdvReac Severe Stomach Verified 01/12/20 05:57 aches tamsulosin HCl [From Flomax] AdvReac Severe Dizziness/L Verified 01/12/20 05:57 ightheade Antihistamines - Alkylamine AdvReac Unknown affected Verified 01/12/20 05:57 prostate cefuroxime AdvReac Unknown daark urine Verified 01/12/20 05:57 plasma human Allergy Intermediate Hives Uncoded 01/12/20 05:57 Exam Const General: cooperative, comfortable and no acute distress Nutritional Appearance: overweight Orientation: alert and oriented x3 HENMT Head: normocephalic and atraumatic Other: old scar noted on the left parietal area Eyes Pupils: PERRL Chest Chest: normal inspection of the chest Resp Effort & Inspection: normal respiratory effort Auscultation: clear to auscultation bilaterally Cardio Rate: regular rate Rhythm: regular rhythm Heart Sounds: no gallops, no murmurs and no rubs GI Inspection: incision (multiple healed incisions noted. Ileostomy LLQ with some liquid stool) Palpation: soft, no guarding, not rigid and tender (throughout) with no rebound tenderness Auscultation: normal bowel sounds General: deferred Extrem General: no edema Results Labs Result diagrams: 01/12/20 05:55 01/12/20 05:55 Labs: Laboratory Results - last 24 hr 01/12/20 01/12/20 05:55 05:55 WBC 6.44 RBC 3.75 L Hgb 12.0 L Hct 38.5 L MCV 102.7 H MCH 32.0 MCHC 31.2 L RDW 15.8 H Plt Count 60 L MPV 11.9 H Immature Gran % 1.1 Neutrophils % 55.7 Lymphocytes % 12.0 Monocytes % 29.0 Eosinophils % 2.0 Basophils % 0.2 Nucleated RBC % 0 Absolute Neutrophils 3.59 Absolute Lymphocytes 0.77 L Absolute Monocytes 1.87 H Absolute Eosinophils 0.13 Absolute Basophils 0.01 RBC Morphology Normal Sodium 140 Potassium 4.0 Chloride 106 Carbon Dioxide 26.8 Anion Gap 7.2 BUN 14 Creatinine 1.33 H Estimated GFR/1.73 m2 52.14 Glucose 97 Calcium 8.6 Total Bilirubin 0.7 AST 43 H ALT 26 Alkaline Phosphatase 137 H Total Protein 6.7 Albumin 3.4 Lipase 146 Last Vital Signs Temp 98.6 F 01/12/20 08:47 Pulse 74 01/12/20 08:47 Resp 18 01/12/20 08:47 BP 148/73 H 01/12/20 08:47 Pulse Ox 96 01/12/20 08:47 COVID-19 Screening Have you,or household,traveled outside [place] in last 14 days?: No Had IN PERSON contact w/suspected or confirmed C-19 person: No
[2020-01-12] MEDS: Ketorolac 15 MG/ML VIAL IV ×2 (10:19→16:03)
[2020-01-12] MEDS: Normal Saline Flush 10 ML SYR IVP (10:20)
[2020-01-12] MEDS: HYDROmorphone 2 MG/ML VIAL 1 MG IVP ×2 (10:31→17:19)
[2020-01-12] MEDS: Pantoprazole 40 MG VIAL IVP (10:32)
[2020-01-12] MEDS: Hydrocortisone SOD SUC. 100 MG VIAL 25 MG IVP (10:32)
[2020-01-12] MEDS: Budesonide/Formoterol 160/4.5 6 GM 60 PUFF INH IH ×2 (11:11→19:19)
[2020-01-12] MEDS: Lacosamide 100 MG TAB PO ×2 (11:11→19:19)
[2020-01-12] MEDS: Fludrocortisone 0.1 MG TAB 0.15 MG PO (12:05)
[2020-01-12 15:53] VITALS: BP 110/66; PULSE 66; RESP 18; TEMP 37.2; O2SAT 94
[2020-01-12] MEDS: Lactated Ringers 1,000 ML 80 ML IV (16:03)
[2020-01-12] MEDS: Hydrocortisone SOD SUC. 100 MG VIAL IVP (17:18)
[2020-01-12] MEDS: Ondansetron 4 MG/2 ML VIAL IVP (20:56)
[2020-01-12] MEDS: Fluticasone NASAL SPRAY 16 GM BTL NS (21:00)
[2020-01-12 21:35] LABS: COVID-19 RT-PCR UVMMC Result Negative (Negative)
[2020-01-13] VITALS (8 sets, daily range): BP systolic 113–158; BP diastolic 61–84; PULSE 74–127; RESP 18–22; TEMP 36.2–37.2; O2SAT 90–95
[2020-01-13] MEDS: Lactated Ringers 1,000 ML 80 ML IV ×2 (04:21→18:54)
[2020-01-13 06:33] LABS: Absolute Basophil Count 0.02 10^3/uL (0.0-0.2); Absolute Lymphocyte Count 0.81 10^3/uL (1.2-3.4); Basophils % 0.1; Eosinophils % 0.5; HCT 39.1 % (40.0-50.0); HGB 12.2 g/dL (13.5-17.5); Immature Grans % 0.6; Lymphocytes % 4.6; MCH 31.8 pg (27.0-33.0); MCHC 31.2 % (32.0-36.0); MCV 101.8 fL (80-95); MPV 13.2 fL (8.0-11.0); Monocytes % 20.3; Neutrophils % 73.9; Nucleated RBC 0 %; RBC 3.84 10^6/uL (4.36-5.78); RDW 15.8 % (11.8-14.1); RDW-SD 58.1 fL; WBC 17.58 10^3/uL (4.4-10.8)
[2020-01-13 06:46] LABS: Anion Gap 8.5 mmol/L (3-11); BUN 27 mg/dL (7-18); CO2 25.5 mmol/L (21.0-32.0); CREATININE 1.65 mg/dL (0.70-1.30); Calcium 8.4 mg/dL (8.5-10.1); Chloride 107 mmol/L (98-107); Estimated GFR 40.65 (mL/min/1.73m2); Glucose 84 mg/dL (74-106); Magnesium 1.4 mg/dL (1.8-2.4); Potassium 4.1 mmol/L (3.5-5.1); Sodium 141 mmol/L (136-145)
[2020-01-13 06:50] LABS: Absolute Eosinophil Count 0.09 10^3/uL (0.0-0.7); Absolute Monocyte Count 3.57 10^3/uL (0.1-0.8); Absolute Neutrophil Count 12.99 10^3/uL (1.2-6.7)
[2020-01-13 07:04] LABS: Diff Comment Agrees w/ Instrument; Platelet Count 57 10^3/uL (130-400); Poikilocytes 1+
[2020-01-13] MEDS: HYDROmorphone 2 MG/ML VIAL 1 MG IVP (07:39)
--- NOTE | 2020-01-13 07:58 | PGE_ITS ---
Date of Service Date of service: 01/13/20 Time of Service: 07:58 Assessment and Plan Assessment and plan (1) DVT prophylaxis: Status: Acute Assessment and plan: Strongly encouraged ambulation and use of the SCDs when in bed. (2) Seizure disorder: Status: Chronic Assessment and plan: Continue lacosamide 100 mg BID (3) CKD (chronic kidney disease) stage 3, GFR 30-59 ml/min: Status: Chronic Qualifiers: Chronic kidney disease stage 3 subtype: unspecified whether 3a or 3b Qualified Code(s): N18.30 - Chronic kidney disease, stage 3 unspecified (4) Ileostomy status: Status: Chronic Assessment and plan: LLQ ileostomy with dark colored liquid stool. (5) Samson's disease: Status: Chronic Assessment and plan: Will switch his hydrocortizone to IV while he is NPO Continue pofludrocortisone po (6) Asthma: Status: Chronic Assessment and plan: Continue his inhalors Has albuterol nebs order as needed Qualifiers: Asthma severity: unspecified severity Asthma persistence: intermittent Asthma complication type: uncomplicated Qualified Code(s): J45.20 - Mild intermittent asthma, uncomplicated (7) GERD (gastroesophageal reflux disease): Status: Chronic Assessment and plan: Switch from po PPI to IV Protonix Qualifiers: Esophagitis presence: esophagitis presence not specified Qualified Code(s): K21.9 - Gastro-esophageal reflux disease without esophagitis (8) Small bowel obstruction: Status: Acute Assessment and plan: Crampy abdominal pain continues. Denies having nausea or vomiting. Continue NPO status Will order NG if he starts to have vomiting If unable to resolve the obstruction [place] [facility] his complicated PMHx both surgical and Medical Subjective Subjective Interval history since last seen: Patient continues to have abdominal cramping. He reports he has had some liquid stool output from his ileostomy and minimal gas. Exam Const General: cooperative, healthy appearing and comfortable Orientation: alert and oriented x3 Resp Effort & Inspection: normal respiratory effort, no audible wheezes and no cough GI Inspection: normal to inspection and scar (Midline) Palpation: soft, no guarding and tender Auscultation: hypoactive bowel sounds Other: Ileostomy with dark brown/green liquid stool Objective Last Vital Signs Temp 36.9 C 01/13/20 04:45 Pulse 110 H 01/13/20 04:45 Resp 18 10/19/20 04:45 BP 121/74 01/13/20 04:45 Pulse Ox 94 01/13/20 04:45 Laboratory Results - last 24 hr 01/12/20 01/13/20 01/13/20 07:55 05:57 05:57 WBC 17.58 H D RBC 3.84 L Hgb 12.2 L Hct 39.1 L MCV 101.8 H MCH 31.8 MCHC 31.2 L RDW 15.8 H Plt Count 57 L MPV 13.2 H Immature Gran % 0.6 Neutrophils % 73.9 Lymphocytes % 4.6 Monocytes % 20.3 Eosinophils % 0.5 Basophils % 0.1 Nucleated RBC % 0 Absolute Neutrophils 12.99 H Absolute Lymphocytes 0.81 L Absolute Monocytes 3.57 H Absolute Eosinophils 0.09 Absolute Basophils 0.02 RBC Morphology See below Poikilocytosis 1+ Sodium 141 Potassium 4.1 Chloride 107 Carbon Dioxide 25.5 Anion Gap 8.5 BUN 27 H D Creatinine 1.65 H Estimated GFR/1.73 m2 40.65 Glucose 84 Calcium 8.4 L Magnesium 1.4 L COVID-19 PCR Negative Nasopharyn COVID-19 PCR Not Applicable Ref Test Perform Site [facility]
[2020-01-13] MEDS: Hydrocortisone SOD SUC. 100 MG VIAL 25 MG IVP (08:35)
[2020-01-13] MEDS: Fludrocortisone 0.1 MG TAB 0.15 MG PO (08:38)
[2020-01-13] MEDS: Lacosamide 100 MG TAB PO ×2 (08:39→19:05)
--- NOTE | 2020-01-13 08:43 | INITIAL_ITS ---
- If Service Date Differs Date of service: 01/13/20 Time of Service: 08:43 Care Management Initial Assess REASON FOR HOSPITALIZATION:: SBO PAST MEDICAL HISTORY/PAST SURGICAL HISTORY:: Medical History (Updated 01/12/20 @ 11:42 by Krissy Sibley MD). Abdominal adhesions (11/06/15). Abdominal wall fistula. [place] Sue[place]'s disease. s/p excision of renal adenomas. Allergic rhinitis (11/06/15). Ankylosing spondylitis. Asthma. Atrial fibrillation (11/06/15). Cholecystitis, acute with cholelithiasis. Cholelithiasis. Cholestatic jaundice. Chronic back pain. 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 Chronic systolic CHF (congestive heart failure) (11/06/15). CKD (chronic kidney disease) stage 3, GFR 30-59 ml/min (11/06/15). COPD (chronic obstructive pulmonary disease). Current use of intermediate teacher anticoagulation (11/06/15). 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 Depression (08/14/17). Dermatitis (11/06/15). lichenoid. Diarrhea. DVT of upper extremity (deep vein thrombosis). En terocutaneous fistula (11/03/15). Fatigue (11/06/15). Gall stone pancreatitis. H/O ulcerative colitis. Hypertension. Ileostomy in place. Inflamed seborrheic keratosis (08/18/16). [facility] [place].destruction of lesion with cryotherapy. Iron deficiency anemia (11/06/15). Lichen planus (11/06/15). Malignant neoplasm of colon (11/06/15). Obesity (11/06/15). Obstructive uropathy. DEVORAH on CPAP (11/06/15). Osteopenia (11/06/15). Dexa T -2.1 femoral neck 2009. Dexa T -1.8 LS spine 2006. Osteoporosis of forearm (08/19/16). T-score -3.7 [facility] [place]. Rheumatoid arthritis (11/06/15). Seizure disorder. Small bowel obstruction (02/27/14). Subdural hematoma. Uncomplicated asthma (11/06/15). Urinary retention. UTI (urinary tract infection). Weakness. Surgical History (Updated 01/12/20 @ 11:30 by Krissy Sibley MD). Cholecystectomy (02/15/16). [facility] [place]. cystoureteroscopy,lithotrypsy (05/11/15). with L stent insertion. Extraction of cataract (07/28/16). R eye. surgeon Amanda Ochoa MD. Fracture, Closed Treatment (02/15/16). [facility] [place]--Distal Rt Radius Fx. H/O surgical procedure (~09/1997). a. total proctocolectomy with end ileostomy in stages. b. Appendectomy. c. Hernia repair. d. excision of renal adenomas. H/O total adrenalectomy. Bilateral. hernia repair (04/08/99). parastomal R/trelex mesh. repair retinal breaks (12/24/03). S/P brain surgery. for evacuation of a blee d- [facility]. S/P ileostomy. ileostomy moved from [facility] to [facility]. transsphenoidal hypophysectomy (11/15/93). Transurethral prostatectomy (11/24/14) PREVIOUS FUNCTIONAL STATUS/SOCIAL/FAMILY SUPPORTS:: Liang has resided at [facility] for the past 3 years. He does not have any children and his is . He has an older sister who lives in [place] and a couple of nieces. Liang states that he is no longer independent with all of his ADLs. He requires assistance with dressing and uses a walker for ambulation. CURRENT FUNCTIONAL STATUS:: Liang was sitting up in bed when CM met with him. He was agreeable to conversation. Linag shared that he has been ill for much of his life and has spent a lot of time in the hospital. He stated that it started when he was in his twenties and was hospitalized for 6 months and no one was able to determine what was wrong until he was finally diagnosed with Arthur's Disease. Liang has had many surgeries and currently has an ileostomy. ADVANCE DIRECTIVES:: on file at [facility] - Cassidy Arias has POA Has patient been provided with info about the portal/API?: No Did the patient sign up for the portal?: No CODE STATUS:: DNR/DNI INSURANCE COVERAGE / FINANCIAL ISSUES:: Medicare. [employer] U IDs only CURRENT HOME/COMMUNITY SERVICES/EQUIPMENT:: Liang lives at the [facility] nad has his care needs met by the staff there. He uses a walker for ambulation. PRIMARY CARE PHYSICIAN:: Mitra Champion POTENTIAL DISCHARGE NEEDS:: Follow up with PCP and discharge plan of care PATIENT/FAMILY EDUCATION NEEDS:: Discharge plan, limitations, follow up plan, Ask Me Three TRANSPORTATION:: via [facility] wheelchair van coordinated by CM PLAN:: Liang will be discharged back to [facility], where he resides, when medically cleared. He will follow up with his PCP and the discharge plan of care. CM will continue to support patient, family and assess for discharge planning needs.
[2020-01-13] MEDS: Budesonide/Formoterol 160/4.5 6 GM 60 PUFF INH IH ×2 (09:03→19:05)
[2020-01-13] MEDS: Pantoprazole 40 MG VIAL IVP (09:41)
[2020-01-13] MEDS: Normal Saline Flush 10 ML SYR IVP ×2 (09:42→20:20)
[2020-01-13] MEDS: ACETAMINOPHEN 1,000 MG/100 ML BTL 400 MG IVPB (11:14)
--- NOTE | 2020-01-13 11:30 | W.NUTCONSULT ---
Date of service: 01/13/20 Time of Service: 11:30 Nutritional Consult ASSESSMENT: 79 year old male admitted with small bowel obstruction. Currently NPO. Resides at [facility], with hx of multiple abdominal surgeries including ileostomy placement. PMH: CDK, Seizure dx, Arthur's Dx. BMI 30- weight stable in last year. Current wt elevated, most likely due to IV fluids. At risk for nutritional decline. Will follow and make warranted recommendations. Estimated Needs: based on adjusted weight of 85 [id number] kcal, 68-81 g protein. NUTRITIONAL DIAGNOSIS: inadequate nutrient intake due to SBO and NPO status INTERVENTION: advance diet as tolerated, if unable to do so in next 4 days, consider nutrition support MONITORING AND EVALUATION: weight, po intake, labs, Time Spent in Nutritional Counseling and Treatment: 5 min spent face to face
[2020-01-13] MEDS: MAGNESIUM SULFATE 2 GM/50 ML BAG IVPB (11:50)
--- NOTE | 2020-01-13 14:33 | PHA.REVIEW ---
Pharmacy Admission Review - Admission Clinical Review (Last Updated 01/12/20 @ 11:30 by Krissy Sibley MD) DVT prophylaxis (Acute) Small bowel obstruction (Acute) latex Allergy (Intermediate, Verified 01/12/20 05:57) rash, itching plasma protein fraction Allergy (Intermediate, Verified 01/12/20 05:57) Hives acebutolol Allergy (Unknown, Verified 01/12/20 05:57) promethazine Allergy (Unknown, Verified 01/12/20 05:57) pseudoephedrine Allergy (Unknown, Verified 01/12/20 05:57) terazosin Allergy (Unknown, Verified 01/12/20 05:57) tramadol HCl [From Ultracet] Allergy (Unknown, Verified 01/12/20 05:57) ceftriaxone Allergy (Unverified 01/12/20 05:57) chlorpheniramine Allergy (Unverified 01/12/20 05:57) venom-honey bee [bee venom (honey bee)] Allergy (Verified 01/12/20 05:57) ferrous sulfate Adverse Reaction (Severe, Verified 01/12/20 05:57) Stomach aches tamsulosin HCl [From Flomax] Adverse Reaction (Severe, Verified 01/12/20 05:57) Dizziness/Lightheade Antihistamines - Alkylamine Adverse Reaction (Unknown, Verified 01/12/20 05:57) affected prostate cefuroxime Adverse Reaction (Unknown, Verified 01/12/20 05:57) daark urine plasma human Allergy (Intermediate, Uncoded 01/12/20 05:57) Hives Height 5 ft 11 in Weight 99.79 kg - Renal Dosing Renal Dosing: BUN 27 mg/dL (7-18) H D 01/13/20 05:57 Creatinine 1.65 mg/dL (0.70-1.30) H 01/13/20 05:57 Medications needing adjustments: Reviewed (Crcl ~45.1 mL/min using adjusted body weight. Current meds okay.) - Anticoagulation Anticoagulation: Hgb 12.2 g/dL (13.5-17.5) L 01/13/20 05:57 Hct 39.1 % (40.0-50.0) L 01/13/20 05:57 Plt Count 57 10^3/uL (130-400) L 01/13/20 05:57 Creatinine 1.65 mg/dL (0.70-1.30) H 01/13/20 05:57 DVT Prohphylaxis: Reviewed Medications: Enoxaparin (ordered but on hold due to low platelet count) Therapeutic Anticoagulation: N/A - Opiate Usage Evaluate Pain Scale/Pains Meds: Reviewed Scheduled Bowel Reg ordered if on Opiates?: No - Relevant Labs Sodium 141 mmol/L (136-145) 01/13/20 05:57 Potassium 4.1 mmol/L (3.5-5.1) 01/13/20 05:57 Chloride 107 mmol/L (98-107) 01/13/20 05:57 Magnesium 1.4 mg/dL (1.8-2.4) L 01/13/20 05:57 Electrolytes, C-Reactive P, ESR: Reviewed (IV mag replacement ordered today.) - DM Control DM Control: Glucose 84 mg/dL (74-106) 01/13/20 05:57 Insulin Dosing: N/A - Heart Failure/NE EF%, MARIA DE JESUS's, B-Blockers, Diuretics: Reviewed - BP Control BP Control: Blood Pressure 115/70 Blood Pressure 121/74 If elevated: Reviewed (Elevated on admission, within normal limits most of today) - Qtc Review If Elevated: N/A - IV to PO Switch IV Medications: Reviewed - Home Meds Home Med List reviewed: Reviewed (Multiple forms of vitamin D increase risk of toxicity.) Relevent Home Meds Not ordered & why?: cyanocobalamin, epinephrine(PRN), ergocalciferol, folic acid, loperamide (SBO), methotrexate, mirtazapine, montelukast, multivitamin, prolia - Current meds Current Medication Order Review: Intervened (talked to provider about acetaminophen order (had PRN and FIDELIA in med order, provider wanted it scheduled)) - Comments Comments/Follow Ups: Watch BP, mag, plts, SCr, and for med changes (possible renal adjustments, home med orders once pt no longer NPO, enoxaparin status pending plts).
--- NOTE | 2020-01-13 16:12 | CHAPLAIN ---
Liang and I remember each other from previous admissions. I visited with him at the [facility] after his in 2019. Liang still lives at the [facility], with his cat, Griselda. He said he has been doing ok at the [facility]. We talked about the difficult and unpredictable few years he's had and what that meant to him.
[2020-01-13] MEDS: Hydrocortisone 10 MG TAB 5 MG PO (16:17)
[2020-01-13] MEDS: Fluticasone NASAL SPRAY 16 GM BTL NS (21:29)
--- NOTE | 2020-01-14 | DI.US_ITS ---
EXAM: US LOWER EXTREMITY VENOUS LT CLINICAL HISTORY: Calf pain, history of DVT. TECHNIQUE: Lower extremity venous ultrasound performed using grayscale, color-flow, and spectral Dop pler analysis. COMPARISON: No exams were available for comparison FINDINGS: The common femoral, femoral and popliteal veins demonstrate normal compressibility, augmentation, and color Doppler. The posterior tibial veins are patent. The saphenous vein appears free of thrombus. No Reyes's cyst or hematoma is seen. IMPRESSION: No evidence of DVT. DATA REPOSITORY:
[2020-01-14] MEDS: Ondansetron 4 MG/2 ML VIAL IVP (04:01)
[2020-01-14] MEDS: Normal Saline Flush 10 ML SYR IVP ×3 (04:01→23:07)
[2020-01-14] MEDS: Acetaminophen 325 MG TAB 650 MG PO ×3 (05:03→21:17)
[2020-01-14 06:39] LABS: HCT 35.2 % (40.0-50.0); HGB 10.9 g/dL (13.5-17.5); MCV 103.2 fL (80-95); RBC 3.41 10^6/uL (4.36-5.78); RDW 15.7 % (11.8-14.1); RDW-SD 59.6 fL; WBC 8.33 10^3/uL (4.4-10.8)
[2020-01-14 06:51] LABS: Anion Gap 8.6 mmol/L (3-11); BUN 26 mg/dL (7-18); CO2 26.4 mmol/L (21.0-32.0); CREATININE 1.67 mg/dL (0.70-1.30); Calcium 8.3 mg/dL (8.5-10.1); Chloride 105 mmol/L (98-107); Estimated GFR 40.09 (mL/min/1.73m2); Glucose 81 mg/dL (74-106); Potassium 3.9 mmol/L (3.5-5.1); Sodium 140 mmol/L (136-145)
[2020-01-14] MEDS: Lactated Ringers 1,000 ML 80 ML IV (07:13)
[2020-01-14 07:18] LABS: MPV 12.6 fL (8.0-11.0); Platelet Count 46 10^3/uL (130-400)
[2020-01-14] MEDS: Budesonide/Formoterol 160/4.5 6 GM 60 PUFF INH IH ×2 (07:39→19:39)
[2020-01-14 07:49] VITALS: BP 117/66; PULSE 78; RESP 16; TEMP 36.7; O2SAT 94
--- NOTE | 2020-01-14 08:44 | PDOC.CMPRO ---
- If Service Date Differs Date of service: 01/14/20 Time of Service: 08:45 Care Management Progress Note S/O: Liang was sitting up in a chair when CM met with him. He stated that he is feeling much better and that his diet was advanced to solid food. He ate an egg for breakfast and said he felt fine afterwards. Liang did complain of pain in his left calf. Because he has had 5 clots in that leg before, an ultrasound was done. It was negative for a DVT. Liang is ready for discharge but [facility] cannot accept him until tomorrow due to the late hour. A: Liang is a 79 year old man admitted on 01/12/20 with a small bowel obstruction P:Liang will be discharged back to [facility], where he resides, tomorrow. He will follow up with his PCP and the discharge plan of care. CM will continue to support patient, family and assess for discharge planning needs. cc:
[2020-01-14] MEDS: Fludrocortisone 0.1 MG TAB 0.15 MG PO (08:48)
[2020-01-14] MEDS: Lacosamide 100 MG TAB PO ×2 (08:49→19:40)
[2020-01-14] MEDS: Pantoprazole 40 MG TABCR PO (08:49)
[2020-01-14] MEDS: Hydrocortisone 10 MG TAB 25 MG PO (08:50)
--- NOTE | 2020-01-14 10:42 | PGE_ITS ---
Date of Service Date of service: 01/14/20 Time of Service: 07:01 Assessment and Plan Assessment and plan (1) DVT prophylaxis: Status: Acute Assessment and plan: Strongly encouraged ambulation and use of the SCDs when in bed. (2) Seizure disorder: Status: Chronic Assessment and plan: Continue lacosamide 100 mg BID (3) CKD (chronic kidney disease) stage 3, GFR 30-59 ml/min: Status: Chronic Qualifiers: Chronic kidney disease stage 3 subtype: unspecified whether 3a or 3b Qualified Code(s): N18.30 - Chronic kidney disease, stage 3 unspecified (4) Ileostomy status: Status: Chronic Assessment and plan: LLQ ileostomy with dark colored liquid stool. (5) Philadelphia's disease: Status: Chronic Assessment and plan: Will switch his hydrocortizone to IV while he is NPO Continue pofludrocortisone po (6) Asthma: Status: Chronic Assessment and plan: Continue his inhalors Has albuterol nebs order as needed Qualifiers: Asthma complication type: uncomplicated Asthma persistence: intermittent Asthma severity: unspecified severity Qualified Code(s): J45.20 - Mild intermittent asthma, uncomplicated (7) GERD (gastroesophageal reflux disease): Status: Chronic Assessment and plan: Switch from po PPI to IV Protonix Qualifiers: Esophagitis presence: esophagitis presence not specified Qualified Code(s): K21.9 - Gastro-esophageal reflux disease without esophagitis (8) Small bowel obstruction: Status: Acute Assessment and plan: Tolerating clear liquid diet, will progress to post- op diet. He does report a single episode of cramping abdominal pain which resolved Subjective Subjective Interval history since last seen: Patient reports he is doing well this morning. Tolerating clear liquid diet overnight. He reports a single episode of lower abdominal cramping, which has since resolved with patient medication. Denies any nausea or vomiting. Exam Const General: cooperative, healthy appearing and comfortable Orientation: alert and oriented x3 Resp Effort & Inspection: normal respiratory effort, no audible wheezes and no cough GI Inspection: normal to inspection and non-distended Palpation: soft, no guarding and nontender Other: Ostomy had moderate amount of liquid stool present. Objective Last Vital Signs Temp 36.7 C 01/14/20 07:49 Pulse 78 01/14/20 07:49 Resp 16 01/14/20 07:49 BP 117/66 10/20/20 07:49 Pulse Ox 94 01/14/20 07:49 Laboratory Results - last 24 hr 01/14/20 01/14/20 06:15 06:15 WBC 8.33 D RBC 3.41 L Hgb 10.9 L Hct 35.2 L MCV 103.2 H MCH 32.0 MCHC 31.0 L RDW 15.7 H Plt Count 46 L MPV 12.6 H Sodium 140 Potassium 3.9 Chloride 105 Carbon Dioxide 26.4 Anion Gap 8.6 BUN 26 H Creatinine 1.67 H Estimated GFR/1.73 m2 40.09 Glucose 81 Calcium 8.3 L Magnesium 2.0
--- NOTE | 2020-01-14 11:48 | NUR.NOTE ---
Nursing Note: Pt reported left leg pain, which he reported felt like a DVT of which he has a history. Dorsalis pedis pulses assessed and strong, left leg not swollen or warm. This information was reported to the Charge Nurse, Nancy Mazariegos.
--- NOTE | 2020-01-14 14:51 | W.PM.DS.N ---
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 Course Hospital Course: Patient presented to ED from local [facility] on 01/12/2020, with complaint of decreased ileostomy output and increased abdominal distention with associated pain. Patient reports that he started to have discomfort last evening. He did not eat dinner. He has had increased pain and distention overnight. He denies nausea or vomiting. He has had prior bowel obstructions. He denies fever, cough, shortness of breath, chest pain. He is still making urine. His Past Surgical history is quite extensive. He tells me that he has had numerous bowel surgeries. First surgery was for colon cancer. He is s/p total collectomy and ileostomy. he has had a cholecystectomy, adrenal mass excision, ileostomy creation and repair of hernia. Ileostomy takedown due to hernia and repositioning to the LLQ. he has had Brain surgery for a bleed, He has had transphenoidal hypophysectomy. He has had multiple small bowel obstructions in the past. States that this is the first obstruction since his ostomy was moved to the LLQ. He is having crampy abdominal pain. Discussed DNR Status. He doesn't want compressions if his heart stops. He is open to intubation if it is believed to be short term. He is open to possible surgery for his obstruction if it doesn't resolve. All of his surgeries have been done at [facility] except for his brain bleed evacuation. If his obstruction doesn't resolve will will transfer the patient to [facility] for surgery. CT scan was done in the ER and it showed a partial SBO without transition. CT scan reviewed by me. CT ABDOMEN PELVIS FINDINGS: Lungs: There is a stable 3 mm nodule in the subpleural region of the right middle lobe. Liver: Normal. No mass. Gallbladder and bile ducts: Cholecystectomy. No ductal dilation. Pancreas: Normal. No ductal dilation. Spleen: Normal. No splenomegaly. Adrenals: Normal. No mass. Kidneys and ureters: Kidneys enhance symmetrically. Stable exophytic 2.4 cm cyst off the right kidney. There is a nonobstructing right renal 1.1 cm stone. There are bilateral tiny renal cortical hypodensities likely cysts but incompletely characterized. Stomach and bowel: Colectomy. Stomach is unremarkable. There are dilated fluid-filled loops of small bowel throughout the abdomen measuring up to 7.4 cm in the midline upper abdomen . No definite transition zone seen however loops taper to normal caliber at the level of the ostomy. Appendix: Surgically absent. Intraperitoneal space: Unremarkable. No free air. No significant fluid collection. Vasculature: Atherosclerotic aorta without aneurysm. Lymph nodes: Unremarkable. No enlarged lymph nodes. Urinary bladder: Unremarkable as visualized. Reproductive: Unremarkable as visualized. Bones/joints: Stable T12-L2 compression deformities. Osteopenia and thoracolumbar mild scoliosis. Soft tissues: There is a small Castelan hernia containing portion of the small bowel wall in the left parastomal hernia. IMPRESSION: Partial small bowel obstruction . Transition zone is not definitely identified however loops taper to normal caliber in the deep pelvis. Right nephrolithiasis. Total colectomy and left lower quadrant ileostomy. He was kept NPO for 1 day. He was started on clear liquids on 01/13/20 as he was having a lot of ileostomy output ncluding air. Diet was advanced to soft on 01/14/2020 and he tolerated that without issue. He complained of calf pain on the LLQ and US was done which was negative for DVT. Patient will be discharged to the [facility] on all his medications. Recommend making the immodium prn, would try metamucil to thicken the output from his ileostomy Home Meds and New Rx's Prescriptions: New [facility] Fiber 3.4 gram/5.8 gram powder 3.4 pwd PO TID Qty: 340 RF: 0 Continued budesonide-formoterol [Symbicort] 160-4.5 mcg/actuation HFA aerosol inhaler 1 puff Inhalation BID Qty: 3 RF: 3 Vimpat 100 mg tablet 100 mg PO BID Qty: 180 RF: 3 fludrocortisone 0.1 MG tablet 0.15 mg PO DAILY Qty: 90 RF: 3 folic acid 1 MG tablet 1 mg PO DAILY RF: 0 montelukast 10 MG tablet 10 mg PO DAILY Qty: 90 RF: 3 Prolia 60 MG/1 ML syringe 60 mg SQ q6 months RF: 0 (DME) BD Regular Bevel [place] 1 EACH needle 1 ea Miscellaneous monthly Qty: 12 RF: 0 epinephrine 0.3 MG/SYR auto-injector 0.3 mg Sub-Q PRN PRNRF: 0 methotrexate sodium 10 mg Tablet 10 mg PO QWEEK RF: 0 pantoprazole 40 mg tablet,delayed release (DR/EC) 40 mg PO DAILY RF: 0 ergocalciferol (vitamin D2) 1,250 mcg (50,000 unit) capsule 50,000 unit PO QMONTH RF: 0 ondansetron HCl 4 mg Tablet 4 mg PO .Q6H, PRN RF: 0 fluticasone propionate 50 mcg/actuation spray,suspension 2 spray NS HS RF: 0 hydrocortisone 5 mg Tablet 5 mg PO BID@0800,1700 RF: 0 hydrocortisone 20 mg Tablet 20 mg PO DAILY RF: 0 cyanocobalamin (vitamin B-12) 1,000 mcg/mL solution 1,000 mcg IM .Q 60 DAYS RF: 0 mirtazapine 15 mg Tablet 3.75 mg PO .QHS RF: 0 multivitamin,tx-minerals Tablet 1 tab PO DAILY RF: 0 Changed loperamide [Imodium A-D] 2 mg Tablet 2 mg PO QID PRNQty: 0 RF: 0 Discharge Instructions Activity:: Activity as Tolerated Equipment/Supplies:: No Equipment Needed Diet:: As Tolerated DS: Summary Status at Discharge Functional status at discharge: independent ambulation Overall status at discharge: patient is back to baseline Mental Status: mental status grossly normal Speech and Movement: speech and movement normal Mood: congruent mood Affect: normal affect Exam Psych Mental Status: mental status grossly normal Speech and Movement: speech and movement normal Mood: congruent mood Affect: normal affect DS: Data Vitals/I&O Vitals and I&O: Vital Signs Temperature 98.1 F 01/14/20 07:49 Temperature Source Tympanic 01/14/20 07:49 Pulse 78 01/14/20 07:49 Pulse Rhythm Regular 01/14/20 07:40 Respiratory Rate 16 01/14/20 07:49 Respiratory Effort Non-Labored 01/14/20 07:40 Respiratory Depth Normal 01/14/20 07:40 Respiratory Pattern Normal 01/14/20 07:40 Blood Pressure 117/66 01/14/20 07:49 Pulse Oximetry 94 01/14/20 07:49 Oxygen Delivery Method Room Air 01/14/20 07:49 Oxygen Flow Rate 0 01/14/20 07:49 Pain Level 5 01/14/20 12:01 Comment 01/13/20 01:23 Intake & Output 01/13/20 01/14/20 01/14/20 23:59 11:59 23:59 Intake Total 1410 / 2594 1235.333 / 1715.333 480 / 1715.333 Output Total 1300 / 2400 1250 / 1250 Balance 110 / 194 -14.667 / 465.333 480 / 465.333 Intake: IV 1010 / 1994 995.333 / 995.333 Oral 400 / 600 240 / 720 480 / 720 Output: Urine 400 / 500 350 / 350 Stool 900 / 1900 900 / 900 Other: Urine Color Dark Mayi Dark Mayi Urine Appearance Clear Clear Urine Odor Strong None Stool Size Moderate Stool Characteristics Liquid Liquid Brown Green Green Voiding Methods Urinal Urinal Data Completed and Pending Labs on day of discharge: Labs from last 24 hours 01/14/20 01/14/20 06:15 06:15 WBC 8.33 D RBC 3.41 L Hgb 10.9 L Hct 35.2 L MCV 103.2 H MCH 32.0 MCHC 31.0 L RDW 15.7 H Plt Count 46 L MPV 12.6 H Sodium 140 Potassium 3.9 Chloride 105 Carbon Dioxide 26.4 Anion Gap 8.6 BUN 26 H Creatinine 1.67 H Estimated GFR/1.73 m2 40.09 Glucose 81 Calcium 8.3 L Magnesium 2.0 PFSH Medical History Abdominal adhesions (11/06/15) 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 Allergic rhinitis (11/06/15) Ankylosing spondylitis Asthma Atrial fibrillation (11/06/15) Cholecystitis, acute with cholelithiasis Cholelithiasis Cholestatic jaundice Chronic back pain Chronic deep vein thrombosis (DVT) of lower extremity (11/06/15) Chronic systolic CHF (congestive heart failure) (11/06/15) CKD (chronic kidney disease) stage 3, GFR 30-59 ml/min (11/06/15) COPD (chronic obstructive pulmonary disease) Current use of manager terminal anticoagulation (11/06/15) 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 Iron deficiency anemia (11/06/15) Lichen planus (11/06/15) Malignant neoplasm of colon (11/06/15) Obesity (11/06/15) Obstructive uropathy DEVORAH on CPAP (11/06/15) Osteopenia (11/06/15) Dexa T -2.1 femoral neck 2009 Dexa T -1.8 LS spine 2006 Osteoporosis of forearm (08/19/16) T-score -3.7 [facility] Rheumatoid arthritis (11/06/15) Seizure disorder Small bowel obstruction (02/27/14) Subdural hematoma Uncomplicated asthma (11/06/15) Urinary retention UTI (urinary tract infection) Weakness Surgical History Cholecystectomy (02/15/16) [facility] cystoureteroscopy,lithotrypsy (05/11/15) with L stent insertion Extraction of cataract (07/28/16) R eye surgeon Amanda Ochoa MD Fracture, Closed Treatment (02/15/16) [facility]--Distal Rt Radius Fx H/O surgical procedure (~09/1997) a. total proctocolectomy with end ileostomy in stages b. Appendectomy c. Hernia repair d. excision of renal adenomas H/O total adrenalectomy Bilateral hernia repair (04/08/99) parastomal R/trelex mesh repair retinal breaks (12/24/03) S/P brain surgery for evacuation of a bleed- [facility] S/P ileostomy ileostomy moved from [facility] to [facility] transsphenoidal hypophysectomy (11/15/93) Transurethral prostatectomy (11/24/14) Family History Mother , CVA Stroke Father , lung CA No problems noted. Sister , COPD No problems noted. Brother , unknown at age 29. No problems noted. Brother Diabetes ASCVD (arteriosclerotic cardiovascular disease) Brother No problems noted. Sister Diabetes Sister No problems noted. Other Arthritis Social History Smoking/Tobacco Use Status: Former Tobacco Use Alcohol Intake: current Alcohol Intake frequency: holidays/special occasions only Alcohol type: beer Drug use: Never Substance use type: does not use Do you feel safe at home: Yes Do you feel safe in your relationship?: Yes
[2020-01-14 15:47] VITALS: BP 117/63; PULSE 77; RESP 18; TEMP 36.8; O2SAT 94
[2020-01-14] MEDS: Hydrocortisone 10 MG TAB 5 MG PO (17:36)
[2020-01-14] MEDS: Psyllium PKT 1 EACH PO (19:41)
[2020-01-14] MEDS: Fluticasone NASAL SPRAY 16 GM BTL NS (21:18)
[2020-01-14] MEDS: LORazepam 2 MG/ML VIAL 1 MG IVP (23:06)
[2020-01-14 23:25] VITALS: BP 116/67; PULSE 70; RESP 18; TEMP 36.9; O2SAT 95
[2020-01-15 07:00] LABS: HCT 35.8 % (40.0-50.0); MCH 31.5 pg (27.0-33.0); MCHC 30.7 % (32.0-36.0); MCV 102.6 fL (80-95); MPV 12.8 fL (8.0-11.0); RBC 3.49 10^6/uL (4.36-5.78); RDW 15.4 % (11.8-14.1); RDW-SD 57.1 fL
[2020-01-15 07:12] LABS: Anion Gap 8.2 mmol/L (3-11); BUN 24 mg/dL (7-18); CO2 27.8 mmol/L (21.0-32.0); CREATININE 1.54 mg/dL (0.70-1.30); Calcium 8.5 mg/dL (8.5-10.1); Chloride 104 mmol/L (98-107); Estimated GFR 44.02 (mL/min/1.73m2); Glucose 85 mg/dL (74-106); Magnesium 1.9 mg/dL (1.8-2.4); Potassium 4.2 mmol/L (3.5-5.1); Sodium 140 mmol/L (136-145)
[2020-01-15 07:28] VITALS: BP 104/68; PULSE 69; RESP 17; TEMP 36.9; O2SAT 97
[2020-01-15 07:30] LABS: Platelet Count 39 10^3/uL (130-400)
[2020-01-15] MEDS: Normal Saline Flush 10 ML SYR IVP (07:38)
[2020-01-15] MEDS: Lacosamide 100 MG TAB PO (07:39)
[2020-01-15] MEDS: Hydrocortisone 10 MG TAB 25 MG PO (07:39)
[2020-01-15] MEDS: Pantoprazole 40 MG TABCR PO (07:39)
[2020-01-15] MEDS: Acetaminophen 325 MG TAB 650 MG PO (07:39)
[2020-01-15] MEDS: Fludrocortisone 0.1 MG TAB 0.15 MG PO (07:40)
[2020-01-15] MEDS: Psyllium PKT 1 EACH PO (07:40)
[2020-01-15] MEDS: Budesonide/Formoterol 160/4.5 6 GM 60 PUFF INH IH (07:45)
--- NOTE | 2020-01-15 08:52 | PDOC.CMDIS ---
- If Service Date Differs Date of service: 01/15/20 Time of Service: 08:52 LACE Index Scoring Tool - Questions: Length of Stay (in days): 3 Acuity (Admit via E.D.?): Yes Comorbidities: Congestive Heart Failure, Chronic Pulmonary Disease, Any Tumor, Liver or Renal Disease E.D. Visits: 1 - Answers: Total Score: 12 Risk of Readmission: High Risk Care Management Discharge Reason for Hospitalization: SBO Discharge Plan: Liang will be discharged back to the [facility]. He will follow up with their providers and plan of care and transport via RCT coordinated by CM. Patient/Family Education Needs: Discharge plan, limitations, follow up plan, Ask Me Three
--- NOTE | 2020-01-15 08:53 | W.PM.PROGNOT ---
Date of Service Date of service: 01/15/20 Time of Service: 08:54 Assessment and Plan Assessment and plan (1) Small bowel obstruction: Status: Acute Assessment and plan: Tolerating soft diet. (+) Stool and flatus in ostomy. P// D/C to the [facility] later this morning. Subjective Subjective Interval history since last seen: Tolerating soft diet. Denies abdominal pain this morning. Exam Const General: cooperative, healthy appearing and comfortable Orientation: alert and oriented x3 Resp Effort & Inspection: normal respiratory effort, no audible wheezes and no cough GI Inspection: normal to inspection Palpation: soft, no guarding and tender (around ostomy) Auscultation: normal bowel sounds Objective Last Vital Signs Temp 36.9 C 01/15/20 07:28 Pulse 69 01/15/20 07:28 Resp 17 01/15/20 07:28 BP 104/68 01/15/20 07:28 Pulse Ox 97 01/15/20 07:28 Laboratory Results - last 24 hr 01/15/20 01/15/20 06:10 06:10 WBC 9.20 RBC 3.49 L Hgb 11.0 L Hct 35.8 L MCV 102.6 H MCH 31.5 MCHC 30.7 L RDW 15.4 H Plt Count 39 L MPV 12.8 H Sodium 140 Potassium 4.2 Chloride 104 Carbon Dioxide 27.8 Anion Gap 8.2 BUN 24 H Creatinine 1.54 H Estimated GFR/1.73 m2 44.02 Glucose 85 Calcium 8.5 Magnesium 1.9
--- NOTE | 2020-01-15 09:57 | NUR.NOTE ---
Nursing Note: Called Natalie and gave report at 09:55 on 01/15/2020. Reported no further questions.
== END 2020-01-15 10:09 | disposition designated cancer center or children's hospital (05) | DRG 389 ==
LOC: ER 07:53 → MS 08:31
PROVIDERS: Admitting Provider Surgery; Emergency Provider Emergency Medicine; PCP Family Medicine; Visit Provider Surgery
DX: K56.600 Partial intestinal obstruction, unspecified as to cause (principal); E89.6 Postprocedural adrenocortical (-medullary) hypofunction; I50.22 Chronic systolic (congestive) heart failure; I13.0 Hypertensive heart and chronic kidney disease with heart failure and stage 1 through stage 4 chronic kidney disease, or unspecified chronic kidney disease; E27.1 Primary adrenocortical insufficiency; N18.30 Chronic kidney disease, stage 3 unspecified; G40.909 Epilepsy, unspecified, not intractable, without status epilepticus; Z93.2 Ileostomy status; J45.20 Mild intermittent asthma, uncomplicated; K21.9 Gastro-esophageal reflux disease without esophagitis; Z85.038 Personal history of other malignant neoplasm of large intestine; R91.1 Solitary pulmonary nodule; M45.9 Ankylosing spondylitis of unspecified sites in spine; I48.91 Unspecified atrial fibrillation; G89.29 Other chronic pain; Z79.01 Long term (current) use of anticoagulants; F32.9 Major depressive disorder, single episode, unspecified; D50.9 Iron deficiency anemia, unspecified; L43.9 Lichen planus, unspecified; E66.9 Obesity, unspecified; G47.33 Obstructive sleep apnea (adult) (pediatric); M06.9 Rheumatoid arthritis, unspecified
CPT/HCPCS: 36415; 80048; 80053; 83690; 85027; 87081; 94640; 96361; 96365; 99223; 99232; 99233; 99239; 99285; U0003; 74177; 83735; 85025; 93971; J0131; J1720; J1885; J2060; J2405; J3490

== ENCOUNTER 2020-01-17 15:03 | Outpatient (REF) | payer MEDICARE, OTHER, SELFPAY ==
[2020-01-17 15:24] LABS: Abs Immature Grans 0.21 10^3/uL (0.0-0.06); Absolute Eosinophil Count 0.09 10^3/uL (0.0-0.7); Absolute Lymphocyte Count 1.72 10^3/uL (1.2-3.4); Absolute Monocyte Count 3.51 10^3/uL (0.1-0.8); Absolute Neutrophil Count 7.29 10^3/uL (1.2-6.7); Basophils % 0.2; Eosinophils % 0.7; HCT 36.8 % (40.0-50.0); HGB 11.5 g/dL (13.5-17.5); Immature Grans % 1.6; Lymphocytes % 13.4; MCH 31.9 pg (27.0-33.0); MCHC 31.3 % (32.0-36.0); MCV 101.9 fL (80-95); Monocytes % 27.3; Neutrophils % 56.8; Nucleated RBC 0 %; RBC 3.61 10^6/uL (4.36-5.78); RDW 16.1 % (11.8-14.1); RDW-SD 59.7 fL; WBC 12.84 10^3/uL (4.4-10.8)
[2020-01-17 15:31] LABS: Absolute Basophil Count 0.03 10^3/uL (0.0-0.2)
[2020-01-17 15:47] LABS: Anisocytosis 1+; Diff Comment Agrees w/ Instrument; Macrocytosis 1+; Platelet Count 64 10^3/uL (130-400); Polychromasia Present
== END 2020-01-17 15:23 ==
LOC: NCHCN 15:03
PROVIDERS: PCP Family Medicine; Visit Provider Family Medicine
DX: E27.1 Primary adrenocortical insufficiency (principal); N18.32 Chronic kidney disease, stage 3b; R53.1 Weakness; K56.690 Other partial intestinal obstruction; E66.9 Obesity, unspecified
CPT/HCPCS: 85025

== ENCOUNTER 2020-01-21 12:35 | Outpatient (REF) | payer MEDICARE, OTHER, SELFPAY ==
[2020-01-21 13:21] LABS: Abs Immature Grans 0.14 10^3/uL (0.0-0.06); Absolute Basophil Count 0.01 10^3/uL (0.0-0.2); Absolute Eosinophil Count 0.11 10^3/uL (0.0-0.7); Absolute Lymphocyte Count 0.74 10^3/uL (1.2-3.4); Absolute Monocyte Count 1.19 10^3/uL (0.1-0.8); Absolute Neutrophil Count 4.08 10^3/uL (1.2-6.7); Basophils % 0.2; Eosinophils % 1.8; HCT 36.8 % (40.0-50.0); HGB 11.4 g/dL (13.5-17.5); Immature Grans % 2.2; Lymphocytes % 11.8; MCH 31.4 pg (27.0-33.0); MCV 101.4 fL (80-95); MPV 13.6 fL (8.0-11.0); Nucleated RBC 0 %; RBC 3.63 10^6/uL (4.36-5.78); RDW 16.1 % (11.8-14.1); RDW-SD 59.7 fL; WBC 6.27 10^3/uL (4.4-10.8)
[2020-01-21 13:44] LABS: Diff Comment PLT Morph Reviewed; Platelet Count 98 10^3/uL (130-400)
[2020-01-21 13:45] LABS: Anisocytosis 1+; Macrocytosis 2+; Polychromasia Present
== END 2020-01-21 12:55 ==
LOC: NCHCN 12:35
PROVIDERS: PCP Family Medicine; Visit Provider Family Medicine
DX: E27.1 Primary adrenocortical insufficiency (principal); K56.690 Other partial intestinal obstruction; D72.9 Disorder of white blood cells, unspecified
CPT/HCPCS: 85025

== ENCOUNTER 2020-01-24 15:04 | Outpatient (REF) | payer MEDICARE, OTHER, SELFPAY ==
[2020-01-24 15:14] LABS: Abs Immature Grans 0.22 10^3/uL (0.0-0.06); HCT 41.4 % (40.0-50.0); HGB 12.8 g/dL (13.5-17.5); MCH 31.7 pg (27.0-33.0); MCHC 30.9 % (32.0-36.0); MCV 102.5 fL (80-95); MPV 12.5 fL (8.0-11.0); Nucleated RBC 0 %; Platelet Count 124 10^3/uL (130-400); RBC 4.04 10^6/uL (4.36-5.78); RDW 16.3 % (11.8-14.1); RDW-SD 61.1 fL; WBC 9.36 10^3/uL (4.4-10.8)
[2020-01-24 15:31] LABS: Absolute Lymphocyte Count 1.03 10^3/uL (1.2-3.4); Absolute Monocyte Count 1.22 10^3/uL (0.1-0.8); Absolute Neutrophil Count 6.93 10^3/uL (1.2-6.7); Bands % 1; Diff Comment Manual Differential; RBC Morphology Normal
[2020-01-24 15:32] LABS: Absolute Eosinophil Count 0.19 10^3/uL (0.0-0.7)
== END 2020-01-24 15:24 ==
LOC: NCHCN 15:04
PROVIDERS: PCP Family Medicine; Visit Provider Family Medicine
DX: R68.89 Other general symptoms and signs (principal); E27.49 Other adrenocortical insufficiency; M06.9 Rheumatoid arthritis, unspecified
CPT/HCPCS: 85025

== ENCOUNTER 2020-02-03 15:13 | Outpatient (REF) | payer MEDICARE, OTHER, SELFPAY ==
[2020-02-03 15:33] LABS: Abs Immature Grans 0.03 10^3/uL (0.0-0.06); Absolute Basophil Count 0.01 10^3/uL (0.0-0.2); Absolute Eosinophil Count 0.07 10^3/uL (0.0-0.7); Absolute Lymphocyte Count 0.44 10^3/uL (1.2-3.4); Absolute Monocyte Count 0.58 10^3/uL (0.1-0.8); Basophils % 0.2; Eosinophils % 1.6; HCT 36.6 % (40.0-50.0); HGB 11.6 g/dL (13.5-17.5); Immature Grans % 0.7; Lymphocytes % 9.9; MCH 32.1 pg (27.0-33.0); MCHC 31.7 % (32.0-36.0); MCV 101.4 fL (80-95); MPV 13.2 fL (8.0-11.0); Monocytes % 13.1; Neutrophils % 74.5; Nucleated RBC 0 %; RBC 3.61 10^6/uL (4.36-5.78); RDW 15.8 % (11.8-14.1); RDW-SD 58.6 fL; WBC 4.43 10^3/uL (4.4-10.8)
[2020-02-03 15:34] LABS: Platelet Count 100 10^3/uL (130-400)
[2020-02-03 15:35] LABS: Anion Gap 9.6 mmol/L (3-11); BUN 19 mg/dL (7-18); CO2 23.4 mmol/L (21.0-32.0); CREATININE 1.72 mg/dL (0.70-1.30); Calcium 8.9 mg/dL (8.5-10.1); Chloride 105 mmol/L (98-107); Estimated GFR 38.75 (mL/min/1.73m2); Glucose 102 mg/dL (74-106); Potassium 5.1 mmol/L (3.5-5.1); Sodium 138 mmol/L (136-145)
== END 2020-02-03 15:33 ==
LOC: LBN 15:13
PROVIDERS: PCP Family Medicine; Visit Provider Family Medicine
DX: E27.1 Primary adrenocortical insufficiency (principal); K56.690 Other partial intestinal obstruction; K51.919 Ulcerative colitis, unspecified with unspecified complications; N18.32 Chronic kidney disease, stage 3b; I48.0 Paroxysmal atrial fibrillation
CPT/HCPCS: 80048; 85025

== ENCOUNTER 2020-02-21 12:34 | Outpatient (REF) | payer MEDICARE, OTHER, SELFPAY ==
[2020-02-21 14:58] LABS: HCT 35.7 % (40.0-50.0); HGB 11.3 g/dL (13.5-17.5); MCH 31.7 pg (27.0-33.0); MCHC 31.7 % (32.0-36.0); MCV 100.3 fL (80-95); MPV 13.7 fL (8.0-11.0); Nucleated RBC 0 %; RBC 3.56 10^6/uL (4.36-5.78); RDW 16.1 % (11.8-14.1); RDW-SD 58.6 fL; WBC 7.46 10^3/uL (4.4-10.8)
[2020-02-21 15:25] LABS: ALT 101 U/L (16-63); AST 94 U/L (15-37); Albumin 3.6 g/dL (3.4-5.0); Alkaline Phosphatase 135 U/L (46-116); Anion Gap 10.1 mmol/L (3-11); BUN 20 mg/dL (7-18); Bilirubin, Total 0.9 mg/dL (0.2-1.0); CO2 21.9 mmol/L (21.0-32.0); CREATININE 1.69 mg/dL (0.70-1.30); Calcium 8.3 mg/dL (8.5-10.1); Chloride 106 mmol/L (98-107); Estimated GFR 39.55 (mL/min/1.73m2); Glucose 85 mg/dL (74-106); Potassium 4.1 mmol/L (3.5-5.1); Sodium 138 mmol/L (136-145); Total Protein 6.7 g/dL (6.4-8.2)
[2020-02-21 15:48] LABS: Absolute Eosinophil Count 0.07 10^3/uL (0.0-0.7); Absolute Lymphocyte Count 0.82 10^3/uL (1.2-3.4); Absolute Monocyte Count 1.79 10^3/uL (0.1-0.8); Absolute Neutrophil Count 4.77 10^3/uL (1.2-6.7); Diff Comment Manual Differential; RBC Morphology Normal
[2020-02-21 15:49] LABS: Platelet Count 64 10^3/uL (130-400)
== END 2020-02-21 12:54 ==
LOC: LBN 12:34
PROVIDERS: PCP Family Medicine; Visit Provider Family Medicine
DX: E27.1 Primary adrenocortical insufficiency (principal); D69.3 Immune thrombocytopenic purpura; R53.1 Weakness; N18.32 Chronic kidney disease, stage 3b; K51.919 Ulcerative colitis, unspecified with unspecified complications
CPT/HCPCS: 80053; 85025

== ENCOUNTER 2020-02-24 10:50 | Outpatient (REF) | payer MEDICARE, OTHER, SELFPAY ==
[2020-02-24 13:27] LABS: ALT 149 U/L (16-63); AST 124 U/L (15-37); Alkaline Phosphatase 150 U/L (46-116); Anion Gap 12.7 mmol/L (3-11); BUN 34 mg/dL (7-18); Bilirubin, Total 1.1 mg/dL (0.2-1.0); CO2 21.3 mmol/L (21.0-32.0); CREATININE 2.17 mg/dL (0.70-1.30); Calcium 8.5 mg/dL (8.5-10.1); Chloride 104 mmol/L (98-107); Estimated GFR 29.63 (mL/min/1.73m2); Glucose 124 mg/dL (74-106); Potassium 4.1 mmol/L (3.5-5.1); Sodium 138 mmol/L (136-145); Total Protein 7.7 g/dL (6.4-8.2)
== END 2020-02-24 11:10 ==
LOC: NCHCN 10:50
PROVIDERS: PCP Family Medicine; Visit Provider Family Medicine
DX: E27.1 Primary adrenocortical insufficiency (principal); D69.3 Immune thrombocytopenic purpura; R74.9 Abnormal serum enzyme level, unspecified; N18.32 Chronic kidney disease, stage 3b
CPT/HCPCS: 80053

== ENCOUNTER 2020-03-04 15:38 | Outpatient (REF) | payer MEDICARE, OTHER, SELFPAY ==
[2020-03-04 15:55] LABS: Anion Gap 10.1 mmol/L (3-11); BUN 19 mg/dL (7-18); CO2 23.9 mmol/L (21.0-32.0); CREATININE 1.94 mg/dL (0.70-1.30); Calcium 8.6 mg/dL (8.5-10.1); Chloride 104 mmol/L (98-107); Estimated GFR 33.73 (mL/min/1.73m2); Glucose 95 mg/dL (74-106); Potassium 4.7 mmol/L (3.5-5.1); Sodium 138 mmol/L (136-145)
[2020-03-04 16:04] LABS: HCT 35.9 % (40.0-50.0); HGB 11.4 g/dL (13.5-17.5); MCH 31.4 pg (27.0-33.0); MCHC 31.8 % (32.0-36.0); MCV 98.9 fL (80-95); MPV 13.7 fL (8.0-11.0); Nucleated RBC 0 %; RBC 3.63 10^6/uL (4.36-5.78); RDW 15.8 % (11.8-14.1); RDW-SD 56.8 fL; WBC 6.72 10^3/uL (4.4-10.8)
[2020-03-04 16:38] LABS: Absolute Basophil Count 0.07 10^3/uL (0.0-0.2); Absolute Eosinophil Count 0.13 10^3/uL (0.0-0.7); Absolute Lymphocyte Count 0.87 10^3/uL (1.2-3.4); Absolute Monocyte Count 1.75 10^3/uL (0.1-0.8); Absolute Neutrophil Count 3.76 10^3/uL (1.2-6.7); Bands % 1; Metamyelocytes % 1; Myelocytes % 1
[2020-03-04 16:39] LABS: Anisocytosis 1+; Diff Comment Manual Differential; Macrocytosis 1+; Polychromasia Present
[2020-03-04 16:40] LABS: Platelet Count 95 10^3/uL (130-400)
== END 2020-03-04 15:58 ==
LOC: NCHCN 15:38
PROVIDERS: PCP Family Medicine; Visit Provider Family Medicine
DX: E27.1 Primary adrenocortical insufficiency (principal); D69.3 Immune thrombocytopenic purpura; N18.32 Chronic kidney disease, stage 3b
CPT/HCPCS: 80048; 85025

== ENCOUNTER 2020-03-05 21:38 | Outpatient (REF) | payer MEDICARE, OTHER, SELFPAY ==
[2020-03-05 16:24] LABS: Albumin 4.1 g/dL (3.4-5.0); PHOSPHORUS 3.3 mg/dL (2.6-4.7); Uric Acid 10.1 mg/dL (3.5-7.2)
[2020-03-05 16:49] LABS: COMMENT (LAB VIEW ONLY) 227.39 mg/dL; Prot/Crea Ur Ratio 0.31
[2020-03-06 09:20] LABS: Parathyroid Hormone,Intact 20 pg/mL (19-88)
== END 2020-03-05 21:58 ==
LOC: LBN 21:38
PROVIDERS: PCP Family Medicine; Visit Provider Family Medicine
DX: E27.1 Primary adrenocortical insufficiency (principal); N18.32 Chronic kidney disease, stage 3b
CPT/HCPCS: 82040; 82565; 83970; 84100; 84156; 84550

== ENCOUNTER 2020-03-12 21:07 | Outpatient (REF) | payer MEDICARE, OTHER, SELFPAY ==
[2020-03-12 14:40] LABS: ALT 47 U/L (16-63); AST 45 U/L (15-37); Alkaline Phosphatase 132 U/L (46-116); Bilirubin, Total 0.6 mg/dL (0.2-1.0)
== END 2020-03-12 21:27 ==
LOC: LBN 21:07
PROVIDERS: PCP Family Medicine; Visit Provider Family Medicine
DX: E27.9 Disorder of adrenal gland, unspecified (principal); D69.3 Immune thrombocytopenic purpura; N18.32 Chronic kidney disease, stage 3b; K51.919 Ulcerative colitis, unspecified with unspecified complications; F34.1 Dysthymic disorder
CPT/HCPCS: 82247; 84075; 84450; 84460

== ENCOUNTER 2020-04-06 16:26 | Outpatient (REF) | payer MEDICARE, OTHER, SELFPAY ==
[2020-04-06 17:30] LABS: Abs Immature Grans 0.08 10^3/uL (0.0-0.06); Absolute Basophil Count 0.01 10^3/uL (0.0-0.2); Absolute Eosinophil Count 0.13 10^3/uL (0.0-0.7); Absolute Lymphocyte Count 0.52 10^3/uL (1.2-3.4); Absolute Monocyte Count 0.87 10^3/uL (0.1-0.8); Absolute Neutrophil Count 4.46 10^3/uL (1.2-6.7); Basophils % 0.2; Eosinophils % 2.1; HCT 36.2 % (40.0-50.0); HGB 11.3 g/dL (13.5-17.5); Immature Grans % 1.3; Lymphocytes % 8.6; MCH 31.7 pg (27.0-33.0); MCHC 31.2 % (32.0-36.0); MCV 101.4 fL (80-95); MPV 13.5 fL (8.0-11.0); Monocytes % 14.3; Neutrophils % 73.5; Nucleated RBC 0 %; RBC 3.57 10^6/uL (4.36-5.78); RDW 15.5 % (11.8-14.1); RDW-SD 57.1 fL; WBC 6.07 10^3/uL (4.4-10.8)
[2020-04-06 17:45] LABS: Diff Comment PLT Morph Reviewed; Platelet Count 79 10^3/uL (130-400); RBC Morphology Normal
== END 2020-04-06 16:46 ==
LOC: LBN 16:26
PROVIDERS: PCP Family Medicine; Visit Provider Family Medicine
DX: N18.32 Chronic kidney disease, stage 3b (principal); E27.1 Primary adrenocortical insufficiency; I48.0 Paroxysmal atrial fibrillation
CPT/HCPCS: 85025

== ENCOUNTER 2020-04-07 10:50 | Outpatient (REF) | payer MEDICARE, OTHER, SELFPAY ==
[2020-04-08 13:58] LABS: Anion Gap 8.9 mmol/L (3-11); BUN 22 mg/dL (7-18); CO2 24.1 mmol/L (21.0-32.0); CREATININE 1.49 mg/dL (0.70-1.30); Calcium 8.6 mg/dL (8.5-10.1); Chloride 107 mmol/L (98-107); Estimated GFR 45.73 (mL/min/1.73m2); Glucose 88 mg/dL (74-106); Potassium 4.6 mmol/L (3.5-5.1); Sodium 140 mmol/L (136-145)
== END 2020-04-07 11:10 ==
LOC: NCHCN 10:50
PROVIDERS: PCP Family Medicine; Visit Provider Family Medicine
DX: N18.32 Chronic kidney disease, stage 3b (principal); E27.1 Primary adrenocortical insufficiency
CPT/HCPCS: 80048

== ENCOUNTER 2020-04-14 12:15 | Outpatient (REF) | payer MEDICARE, OTHER, SELFPAY ==
[2020-04-14 15:55] LABS: Abs Immature Grans 0.08 10^3/uL (0.0-0.06); Absolute Basophil Count 0.02 10^3/uL (0.0-0.2); Absolute Eosinophil Count 0.15 10^3/uL (0.0-0.7); Absolute Lymphocyte Count 1.03 10^3/uL (1.2-3.4); Absolute Monocyte Count 1.36 10^3/uL (0.1-0.8); Absolute Neutrophil Count 3.49 10^3/uL (1.2-6.7); Basophils % 0.3; Eosinophils % 2.4; HGB 11.1 g/dL (13.5-17.5); Immature Grans % 1.3; Lymphocytes % 16.8; MCH 31.6 pg (27.0-33.0); MCHC 30.8 % (32.0-36.0); MCV 102.6 fL (80-95); MPV 12.9 fL (8.0-11.0); Monocytes % 22.2; Nucleated RBC 0 %; RBC 3.51 10^6/uL (4.36-5.78); RDW 15.9 % (11.8-14.1); RDW-SD 58.3 fL; WBC 6.13 10^3/uL (4.4-10.8)
[2020-04-14 16:14] LABS: Platelet Count 74 10^3/uL (130-400)
== END 2020-04-14 12:35 ==
LOC: LBN 12:15
PROVIDERS: PCP Family Medicine; Visit Provider Family Medicine
DX: D72.9 Disorder of white blood cells, unspecified (principal); D69.3 Immune thrombocytopenic purpura
CPT/HCPCS: 85025

== ENCOUNTER 2020-04-15 03:21 | Outpatient (RCR) | payer MEDICARE, OTHER, SELFPAY ==
[2020-04-15] MEDS: Denosumab 60 MG/ML SYR SC (11:07)
== END 2020-04-26 23:59 | disposition home or self-care (01) ==
LOC: INF 03:21
PROVIDERS: PCP Family Medicine; Visit Provider Family Medicine
DX: M81.0 Age-related osteoporosis without current pathological fracture (principal)
CPT/HCPCS: J0897; 96372

== ENCOUNTER 2020-04-21 18:37 | Outpatient (REF) | payer MEDICARE, OTHER, SELFPAY ==
[2020-04-21 19:28] LABS: Abs Immature Grans 0.08 10^3/uL (0.0-0.06); HCT 39.6 % (40.0-50.0); HGB 12.5 g/dL (13.5-17.5); MCH 31.6 pg (27.0-33.0); MCHC 31.6 % (32.0-36.0); MCV 100.3 fL (80-95); MPV 13.4 fL (8.0-11.0); Nucleated RBC 0 %; RBC 3.95 10^6/uL (4.36-5.78); RDW 15.8 % (11.8-14.1); RDW-SD 57.7 fL; WBC 7.68 10^3/uL (4.4-10.8)
[2020-04-21 20:03] LABS: BUN 25 mg/dL (7-18); Chloride 101 mmol/L (98-107); Estimated GFR 34.55 (mL/min/1.73m2); Glucose 94 mg/dL (74-106); Potassium 4.4 mmol/L (3.5-5.1); Sodium 135 mmol/L (136-145)
[2020-04-21 21:14] LABS: Platelet Count 90 10^3/uL (130-400)
[2020-04-21 21:16] LABS: Absolute Lymphocyte Count 1.31 10^3/uL (1.2-3.4); Absolute Neutrophil Count 4.61 10^3/uL (1.2-6.7); Bands % 0; Diff Comment Manual Differential; RBC Morphology Normal
[2020-04-21 21:17] LABS: Absolute Monocyte Count 1.77 10^3/uL (0.1-0.8); Atypical Lymphocytes % 0
== END 2020-04-21 18:57 ==
LOC: LBN 18:37
PROVIDERS: PCP Family Medicine; Visit Provider Family Medicine
DX: E27.1 Primary adrenocortical insufficiency (principal); D69.3 Immune thrombocytopenic purpura
CPT/HCPCS: 80048; 85025

== ENCOUNTER 2020-05-08 12:35 | Outpatient (REF) | payer MEDICARE, OTHER, SELFPAY ==
[2020-05-08 14:22] LABS: Abs Immature Grans 0.08 10^3/uL (0.0-0.06); Absolute Basophil Count 0.02 10^3/uL (0.0-0.2); Absolute Eosinophil Count 0.12 10^3/uL (0.0-0.7); Absolute Lymphocyte Count 0.63 10^3/uL (1.2-3.4); Absolute Neutrophil Count 4.82 10^3/uL (1.2-6.7); Basophils % 0.3; Eosinophils % 1.8; HCT 38.7 % (40.0-50.0); HGB 11.8 g/dL (13.5-17.5); Immature Grans % 1.2; Lymphocytes % 9.6; MCH 31.1 pg (27.0-33.0); MCHC 30.5 % (32.0-36.0); MCV 102.1 fL (80-95); MPV 12.4 fL (8.0-11.0); Monocytes % 13.7; Neutrophils % 73.4; Nucleated RBC 0 %; Platelet Count 102 10^3/uL (130-400); RBC 3.79 10^6/uL (4.36-5.78); RDW 16.2 % (11.8-14.1); RDW-SD 61.2 fL; WBC 6.57 10^3/uL (4.4-10.8)
[2020-05-08 14:59] LABS: ALT 60 U/L (16-63); AST 52 U/L (15-37); Albumin 3.7 g/dL (3.4-5.0); Alkaline Phosphatase 151 U/L (46-116); Anion Gap 10.4 mmol/L (3-11); BUN 19 mg/dL (7-18); Bilirubin, Total 0.5 mg/dL (0.2-1.0); CO2 21.6 mmol/L (21.0-32.0); CREATININE 1.7 mg/dL (0.70-1.30); Calcium 8.5 mg/dL (8.5-10.1); Chloride 106 mmol/L (98-107); Estimated GFR 39.28 (mL/min/1.73m2); Glucose 116 mg/dL (74-106); Magnesium 1.7 mg/dL (1.8-2.4); Potassium 5.7 mmol/L (3.5-5.1); Sodium 138 mmol/L (136-145); Total Protein 7.4 g/dL (6.4-8.2); Vitamin B12 1192 pg/mL (193-986)
== END 2020-05-08 12:36 | disposition home or self-care (01) ==
LOC: LBN 12:35
PROVIDERS: PCP Family Medicine; Visit Provider Family Medicine
DX: D69.3 Immune thrombocytopenic purpura (principal); E27.1 Primary adrenocortical insufficiency; K51.919 Ulcerative colitis, unspecified with unspecified complications; N18.32 Chronic kidney disease, stage 3b; F34.1 Dysthymic disorder; G40.89 Other seizures; D69.6 Thrombocytopenia, unspecified
CPT/HCPCS: 80053; 82607; 83735; 85025

== ENCOUNTER 2020-05-08 18:37 | Outpatient (REF) | payer MEDICARE, OTHER, SELFPAY ==
[2020-05-09 16:59] LABS: Potassium 6.1 mmol/L (3.5-5.1)
== END 2020-05-08 18:38 | disposition home or self-care (01) ==
LOC: LBN 18:37
PROVIDERS: PCP Family Medicine; Visit Provider Family Medicine
DX: E87.5 Hyperkalemia (principal)
CPT/HCPCS: 84132

== ENCOUNTER 2020-05-09 17:55 | Observation (INO) | payer MEDICARE, OTHER, SELFPAY ==
[2020-05-09] VITALS (26 sets, daily range): BP systolic 119–142; BP diastolic 55–77; PULSE 70–106; RESP 18–29; TEMP 36.4–36.6; O2SAT 90–99
--- NOTE | 2020-05-09 17:45 | RT.EKG_ITS ---
APPROVED REPORT Exam: Resting ECG Patient Location: E HR:77 bpm ECG Measurements Heart Rate 77 AXIS ME 220 P 41 QRSd 90 QRS -45 QT 351 T 69 QTc 398 Conclusion Sinus rhythm...normal P axis, V-rate 60- 99 Prolonged ME interval...ME >220, V-rate 50- 90 Left anterior fascicular block...axis(240,-40), init forces inf
--- NOTE | 2020-05-09 18:23 | W.ED.GENAD ---
Discharge Plan Disposition Patient Disposition: [facility] IN[facility] Condition: Serious Discharge Details Chief Complaint: GenMedical Clinical Impression: Acute hyperkalemia, Acute back pain with sciatica Primary Care Provider: Mitra Champion ED Provider: Andrade Angel Home Meds and New Rx's Prescriptions: No Action budesonide-formoterol [Symbicort] 160-4.5 mcg/actuation HFA aerosol inhaler 1 puff Inhalation BID Qty: 3 RF: 3 fludrocortisone 0.1 MG tablet 0.15 mg PO DAILY Qty: 90 RF: 3 folic acid 1 MG tablet 1 mg PO DAILY RF: 0 montelukast 10 MG tablet 10 mg PO DAILY Qty: 90 RF: 3 (DME) BD Regular Bevel [place] 1 EACH needle 1 ea Miscellaneous monthly Qty: 12 RF: 0 epinephrine 0.3 MG/SYR auto-injector 0.3 mg Sub-Q PRN PRNRF: 0 methotrexate sodium 10 mg Tablet 10 mg PO QWEEK RF: 0 pantoprazole 40 mg tablet,delayed release (DR/EC) 40 mg PO DAILY RF: 0 ergocalciferol (vitamin D2) 1,250 mcg (50,000 unit) capsule 50,000 unit PO QMONTH RF: 0 Multihealth Fiber 3.4 gram/5.8 gram powder 3.4 pwd PO TID Qty: 340 RF: 0 loperamide [Imodium A-D] 2 mg Tablet 2 mg PO QID PRNQty: 0 RF: 0 hydrocodone-acetaminophen [Vicodin] 5-300 mg Tablet 1 tab PO Q6H PRNRF: 0 Vimpat 100 mg tablet 100 mg PO BID RF: 0 ondansetron HCl 4 mg Tablet 4 mg PO .Q6H, PRN RF: 0 fluticasone propionate 50 mcg/actuation spray,suspension 2 spray NS HS RF: 0 hydrocortisone 5 mg Tablet 5 mg PO BID@0800,1700 RF: 0 hydrocortisone 20 mg Tablet 20 mg PO DAILY RF: 0 cyanocobalamin (vitamin B-12) 1,000 mcg/mL solution 1,000 mcg IM .Q 60 DAYS RF: 0 mirtazapine 15 mg Tablet 3.75 mg PO .QHS RF: 0 multivitamin,tx-minerals Tablet 1 tab PO DAILY RF: 0 Medical Decision Making 1826??79-year-old male with multiple medical problems sent by detention for hyperkalemia. Plan to obtain EKG and repeat labs to assess for lab error. Patient also with left lateral lower extremity pain over the past couple weeks that radiates from his back. Suspect sciatic radiculopathy secondary to likely disc herniation. Patient is neurologically intact. 1900 -- labs reviewed and hyperkalemia confirmed with potassium 6.2. Will give lokelma. I called and spoke with Dr. Champion at [facility] who feels that patient would benefit from hospitalization given comorbidities including high output ileostomy. -- I spoke with Dr. Bass who will admit the patient. HPI General Mode of arrival: ambulatory. Date/Time Provider Initiated Documentation: 05/09/20 17:57. Limitations to Documentation: no limitations. Information obtained by: patient. HPI Narrative: 79-year-old male with multiple medical problems including chronic kidney disease, Waller's disease, seizure disorder, COPD, chronic systolic congestive heart failure, sent by detention for hyperkalemia. Patient notes he had labs checked and potassium was elevated at 5.7 on 05/08/2020. Lab was repeated today and noted to be 6.1. Patient sent for further work-up and treatment. Patient also notes that he has left lateral lower extremity pain that radiates from his left lower back. This is been going on for past couple weeks. Related Data Home Medications Medication Instructions Recorded Confirmed epinephrine 0.3 mg SUB-Q PRN PRN 10/07/14 05/09/20 fludrocortisone 0.15 mg PO DAILY #90 tab-cap 03/17/16 05/09/20 folic acid 1 mg PO DAILY 10/24/16 05/09/20 montelukast 10 mg PO DAILY #90 tab-cap 01/03/17 05/09/20 BD Regular Bevel [place] #12 ea 11/16/17 12/26/18 budesonide-formoterol HFA 160 1 puff INHALATION BID #3 canister 02/07/18 05/09/20 mcg-4.5 mcg/actuation aerosol inhaler cyanocobalamin (vitamin B-12) 1,000 mcg IM .Q 60 DAYS 07/30/18 05/09/20 fluticasone propionate 2 spray NS HS 07/30/18 05/09/20 hydrocortisone 5 mg PO BID@0800,1700 07/30/18 05/09/20 hydrocortisone 20 mg PO DAILY 07/30/18 05/09/20 ondansetron HCl 4 mg PO .Q6H, PRN 07/30/18 05/09/20 mirtazapine 3.75 mg PO .QHS 01/02/19 05/09/20 multivitamin,tx-minerals 1 tab PO DAILY 01/02/19 05/09/20 ergocalciferol (vitamin D2) 50,000 unit PO QMONTH 01/12/20 05/09/20 methotrexate sodium 10 mg PO QWEEK 01/12/20 05/09/20 pantoprazole 40 mg PO DAILY 01/12/20 05/09/20 loperamide [Imodium A-D] 2 mg PO QID PRN #0 tab 01/14/20 05/09/20 psyllium husk (aspartame) 3.4 pwd PO TID #340 g 01/14/20 05/09/20 [Multihealth Fiber] hydrocodone-acetaminophen [Vicodin] 1 tab PO Q6H PRN 05/09/20 05/09/20 lacosamide [Vimpat] 100 mg PO BID 05/09/20 05/09/20 Previous Rx's Medication Instructions Recorded montelukast 10 mg PO DAILY #90 tab-cap 01/03/17 BD Regular Bevel [place] #12 ea 11/16/17 budesonide-formoterol HFA 160 1 puff INHALATION BID #3 canister 02/07/18 mcg-4.5 mcg/actuation aerosol inhaler loperamide [Imodium A-D] 2 mg PO QID PRN #0 tab 01/14/20 psyllium husk (aspartame) 3.4 pwd PO TID #340 g 01/14/20 [Multihealth Fiber] Allergies Allergy/AdvReac Type Severity Reaction Status Date / Time latex Allergy Intermediate rash, Verified 05/09/20 18:02 itching plasma protein fraction Allergy Intermediate Hives Verified 05/09/20 18:02 acebutolol Allergy Unknown Verified 05/09/20 18:02 promethazine Allergy Unknown Verified 05/09/20 18:02 pseudoephedrine Allergy Unknown Verified 05/09/20 18:02 terazosin Allergy Unknown Verified 05/09/20 18:02 tramadol HCl [From Ultracet] Allergy Unknown Verified 05/09/20 18:02 ceftriaxone Allergy Unverified 05/09/20 18:02 chlorpheniramine Allergy Unverified 05/09/20 18:02 venom-honey bee Allergy Verified 05/09/20 18:02 [bee venom (honey bee)] ferrous sulfate AdvReac Severe Stomach Verified 05/09/20 18:02 aches tamsulosin HCl [From Flomax] AdvReac Severe Dizziness/L Verified 05/09/20 18:02 ightheade Antihistamines - Alkylamine AdvReac Unknown affected Verified 05/09/20 18:02 prostate cefuroxime AdvReac Unknown daark urine Verified 05/09/20 18:02 plasma human Allergy Intermediate Hives Uncoded 05/09/20 18:02 General Stated Complaint: GenMedical SANTOSH: 3 Review of Systems All systems reviewed & are unremarkable except as noted in HPI and below Constitutional Constitutional: Denies fever(s) Musculoskeletal Musculoskeletal: Reports as per HPI [facility] History Abdominal adhesions (11/06/15) 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 Allergic rhinitis (11/06/15) Ankylosing spondylitis Asthma Atrial fibrillation (11/06/15) Cholecystitis, acute with cholelithiasis Cholelithiasis Cholestatic jaundice Chronic back pain Chronic deep vein thrombosis (DVT) of lower extremity (11/06/15) Chronic systolic CHF (congestive heart failure) (11/06/15) CKD (chronic kidney disease) stage 3, GFR 30-59 ml/min (11/06/15) COPD (chronic obstructive pulmonary disease) Current use of prison anticoagulation (11/06/15) 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 Iron deficiency anemia (11/06/15) Lichen planus (11/06/15) Malignant neoplasm of colon (11/06/15) Obesity (11/06/15) Obstructive uropathy DEVORAH on CPAP (11/06/15) Osteopenia (11/06/15) Dexa T -2.1 femoral neck 2009 Dexa T -1.8 LS spine 2006 Osteoporosis of forearm (08/19/16) [place]3.7 [facility] [place]umatoid arthritis (11/06/15) Seizure disorder Small bowel obstruction (02/27/14) Subdural hematoma Uncomplicated asthma (11/06/15) Urinary retention UTI (urinary tract infection) Weakness Surgical History [place]ole[place] (02/15/16[place] [facility] [place],lithotrypsy (05/11/15) with L stent insertion Extraction of cataract (07/28/16) R eye surgeon Amanda Ochoa MD Fracture, Closed Treatment (02/15/16[place] [facility] [place] Rad[place] F[place] H/O surgical procedure (~09/1997) a. total proctocolectomy with end ileostomy in stages b. Appendectomy c. Hernia repair d. excision of renal adenomas H/O total adrenalectomy Bilateral hernia repair (04/08/99) parastomal R/trelex mesh repair retinal breaks (12/24/03) S/P brain surgery for evacuation of a bleed- [facility] S/P ileostomy ileostomy moved from RLQ to [place] [facility] [place]sphenoidal hypophysect[place] (11/15/93) Transurethral prostatectomy (11/24/14) Family History Mother , CVA Stroke Father , lung CA No problems noted. Sister , COPD No problems noted. Brother , unknown at age 29. No problems noted. Brother Diabetes ASCVD (arteriosclerotic cardiovascular disease) Brother No problems noted. Sister Diabetes Sister No problems noted. Other Arthritis Social History Smoking/Tobacco Use Status: Former Tobacco Use Smoking risk assessment performed?: Yes Alcohol Intake: current Alcohol Intake frequency: holidays/special occasions only Alcohol type: beer Drug use: Never Substance use type: does not use Do you feel safe at home: Yes Do you feel safe in your relationship?: Yes Exam Const General: cooperative and no acute distress HENWY Head: normocephalic and atraumatic Mouth: moist mucous membranes Eyes Conjunctivae: normal conjunctivae Sclera: normal sclerae Neck Neck: trachea midline and supple Resp Auscultation: clear to auscultation bilaterally, no rales, no rhonchi and no wheezes Cardio Rate: regular rate and not tachycardic Rhythm: regular rhythm GI Palpation: soft, not firm, no guarding, no masses, not rigid and nontender Back/Spine/Pelvis Thoracic/Lumbar Spine: paraspinal tenderness (Lower left lumbar) and No lumbar spinal tenderness Skin General skin exam: no rashes or lesions noted Neuro General: patient alert, patient awake, patient oriented x3 and tone normal Speech: speech normal Motor: strength 5/5 throughout (Bilateral lower extremities) Sensory Exam: no sensory deficits noted (Bilateral extremities, including no saddle anesthesia) Extrem General: no edema Psych Appearance: grossly normal Mental Status: mental status grossly normal Course Vital Signs Vital signs: Vital Signs Temperature 36.6 C 05/09/20 17:58 Pulse 104 H 05/09/20 17:58 Respiratory Rate 18 05/09/20 17:58 Blood Pressure 131/77 05/09/20 17:58 Pulse Oximetry 96 05/09/20 17:58 Temperature 36.6 C 05/09/20 17:58 Temperature Source Temporal Artery Scan 05/09/20 17:58 Pulse 104 H 05/09/20 17:58 Respiratory Rate 18 05/09/20 17:58 Respiratory Effort Non-Labored 05/09/20 18:02 Blood Pressure 131/77 05/09/20 17:58 Blood Pressure Position Sitting 05/09/20 17:58 Pulse Oximetry 96 05/09/20 17:58 Oxygen Delivery Method Room Air 05/09/20 17:58 Oxygen Flow Rate 0 05/09/20 17:58 Pain Level 4 05/09/20 17:58
[2020-05-09 18:39] LABS: Abs Immature Grans 0.06 10^3/uL (0.0-0.06); Absolute Basophil Count 0.02 10^3/uL (0.0-0.2); Absolute Eosinophil Count 0.12 10^3/uL (0.0-0.7); Absolute Lymphocyte Count 1.01 10^3/uL (1.2-3.4); Absolute Monocyte Count 0.95 10^3/uL (0.1-0.8); Absolute Neutrophil Count 5.68 10^3/uL (1.2-6.7); Basophils % 0.3; Eosinophils % 1.5; HGB 13.1 g/dL (13.5-17.5); Immature Grans % 0.8; Lymphocytes % 12.9; MCH 31.3 pg (27.0-33.0); MCV 97.9 fL (80-95); MPV 12.6 fL (8.0-11.0); Monocytes % 12.1; Neutrophils % 72.4; Nucleated RBC 0 %; Platelet Count 112 10^3/uL (130-400); RBC 4.19 10^6/uL (4.36-5.78); RDW 15.9 % (11.8-14.1); RDW-SD 57.2 fL; WBC 7.84 10^3/uL (4.4-10.8)
[2020-05-09 18:52] LABS: ALT 51 U/L (16-63); AST 42 U/L (15-37); Albumin 4.1 g/dL (3.4-5.0); Alkaline Phosphatase 162 U/L (46-116); Anion Gap 13.7 mmol/L (3-11); BUN 27 mg/dL (7-18); Bilirubin, Total 0.8 mg/dL (0.2-1.0); CO2 19.3 mmol/L (21.0-32.0); Calcium 9.3 mg/dL (8.5-10.1); Chloride 103 mmol/L (98-107); Estimated GFR 32.56 (mL/min/1.73m2); Glucose 106 mg/dL (74-106); Magnesium 1.6 mg/dL (1.8-2.4); Sodium 136 mmol/L (136-145); Total Protein 8.7 g/dL (6.4-8.2)
[2020-05-09 18:54] LABS: Potassium 6.2 mmol/L (3.5-5.1)
[2020-05-09] MEDS: Sodium Zirconium Cyclosilicate 10 GM PKT PO ×2 (19:42→23:31)
[2020-05-09] MEDS: oxyCODONE 5 mg/Acetaminophen 325 mg TAB 1 TAB PO (20:33)
--- NOTE | 2020-05-09 21:58 | HPE_ITS ---
Date of service: 05/09/20 Time of Service: 21:58 Assessment and Plan Assessment and plan (1) Acute hyperkalemia: Status: Acute Assessment and plan: Cardiac stabilizing and aggressive therapy not indicated as no EKG changes. However I do agree with concern of increasing potassium without clear reversible cause. Adrenal insufficiency can cause high potassium, though his is taking mineralocorticoid replacemnt at appropriate dose. It may make sense to increase fludricortisone. Ileostomy can cause hyperkalemia as fluid and salt wasting makes kidneys resistant to mineralocortoicoid action, but this typically occurs in ESRD. His CKD could be contributing as his Cr is slightly above baseline. I will continue Lokelma at 48hr TID dosing. Hold MVI/minral supplument. (2) Acute back pain with sciatica: Status: Acute Assessment and plan: I am concerned with degree of disability with this severe pain. No clinical red flags, but his age and cancer history are concerning. I will get plain films to start, would like to get MRI as outpatient or if still here Monday. Work with PT. Continue hydrocodone prn pain, with allergies I think prudent to stick to this medication as he is already tolerating it. Get PSA given prostate history. (3) [place]'s disease: Status: Chronic Assessment and plan: Sees Dr. Monroe [facility] [place] endocrein. Continue hydrocortisone and fludricortisone. It may make sense to increase fludicortisone to max of 0.2mg. (4) CKD (chronic kidney disease) stage 3, GFR 30-59 ml/min: Status: Chronic Assessment and plan: Volume status curently euvolemic. Monitor. Replace magniesium. Qualifiers: Chronic kidney disease stage 3 subtype: unspecified whether 3a or 3b Qualified Code(s): N18.30 - Chronic kidney disease, stage 3 unspecified (5) Asthma: Status: Chronic Assessment and plan: Vs COPD. not active currently, continue outpatient ICS/LABA Qualifiers: Asthma severity: unspecified severity Asthma persistence: intermittent Asthma complication type: uncomplicated Qualified Code(s): J45.20 - Mild intermittent asthma, uncomplicated (6) Seizure disorder: Status: Chronic Assessment and plan: no recent events, continue lacosamide. (7) Elevated liver enzymes: Status: Acute Assessment and plan: AST mildly high, denies EtOH. Combination with low platelets raises concern of fibrosis, but other tests like albumin okay, no cirrhosis on CT A/P in 2019. Likely MTX effect. Follow. (8) DVT prophylaxis: Status: Acute Assessment and plan: SCDs given low plts and latex allergy (9) Discharge planning issues: Status: Acute History of Present Illness History of Present Illness Chief Complaint: hip pain, hyperkalemia Narrative: 79-year-old man who is resident at [facility] with history of colectomy with ileostomy, surgical adrenal insufficiency, and chronic renal insufficiency stage 3b with GFR in 30s sent to the ED with worsening hyperkalemia. His potassium was 5.7 on 05/08/20 and up to 6.1 on outpatient labs this morning. Sent to ED and K+ 6.2, despite trying to adjust diet. He has a history of hyperkalemia in the past that improved after he stopped drinking orange juice, though he was also give kayexalate in the ED at the time in 2019. He denies any recent change in diet or medication, though he did eat a banana yesterday. He hasn't noticed a change in ostomy output, though volume varies with his diet. The only new issue over the past 2-3 weeks has been left sided hip pain. He gestures to his posterior hip/buttocks area that is painful. Feels better leaning to his right. Lying down flat makes worse, lifted head of the bed up makes better. Pain constant, aching, severe at times including now. Radiates down lateral leg to calf. Has had back pain in the past, but nothing like this. Acetaminophen was not sufficient. He has been started on hydrocodone/APAP, which helps some. Review of Systems Constitutional Constitutional: Denies anorexia, Denies chills, Denies fever(s), Denies lethargy, Denies poor appetite, Denies weight gain and Denies weight loss Eyes Eyes: Denies change in vision, Denies irritation and Denies loss of vision ENT Ears, Nose, Mouth, and Throat: Denies dizziness, Denies mouth lesions, Denies nasal congestion, Denies nasal discharge and Denies sore throat Cardiovascular Cardiovascular: Denies chest pain, Denies palpitations, Denies dyspnea and Denies orthopnea Respiratory Respiratory: Denies cough, Denies excessive phlegm production, Denies dyspnea and Denies wheezing Gastrointestinal Gastrointestinal: Denies abdominal pain, Denies hematochezia, Denies heartburn, Denies nausea and Denies vomiting Genitourinary Genitourinary: Denies hematuria, Denies difficulty urinating, Denies dysuria and Denies urinary incontinence Musculoskeletal Musculoskeletal: Denies muscle weakness and Denies numbness Comments: no RA type joint pain/swelling in hands Integumentary/Breasts Skin/Breast: Denies rash and Denies skin ulcer Neurologic Neurologic: Denies dizziness, Denies loss of vision, Denies numbness and Denies sensory deficit Psychiatric Psychiatric: Denies mood swings and Denies panic attacks Endocrine Endocrine: Denies palpitations Hematologic/Lymphatic Hematologic/Lymphatic: Denies easy bleeding and Reports easy bruising Allergic/Immunologic Allergic/Immunologic: Denies wheezing [facility] Medical History Abdominal adhesions (11/06/15) 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 Allergic rhinitis (11/06/15) Ankylosing spondylitis Asthma Atrial fibrillation (11/06/15) Cholecystitis, acute with cholelithiasis Cholelithiasis Cholestatic jaundice Chronic back pain Chronic deep vein thrombosis (DVT) of lower extremity (11/06/15) Chronic systolic CHF (congestive heart failure) (11/06/15) CKD (chronic kidney disease) stage 3, GFR 30-59 ml/min (11/06/15) COPD (chronic obstructive pulmonary disease) Current use of exterminator anticoagulation (11/06/15) 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 Iron deficiency anemia (11/06/15) Lichen planus (11/06/15) Malignant neoplasm of colon (11/06/15) Obesity (11/06/15) Obstructive uropathy DEVORAH on CPAP (11/06/15) Osteopenia (11/06/15) Dexa T -2.1 femoral neck 2009 Dexa T -1.8 LS spine 2006 Osteoporosis of forearm (08/19/16) T-score -3.7 [facility] [place] Rheumatoid arthritis (11/06/15) Seizure disorder Small bowel obstruction (02/27/14) Subdural hematoma Uncomplicated asthma (11/06/15) Urinary retention UTI (urinary tract infection) Weakness Surgical History Cholecystectomy (02/15/16) [facility] [place] cystoureteroscopy,lithotrypsy (05/11/15) with L stent insertion Extraction of cataract (07/28/16) R eye surgeon Amanda Ochoa MD Fracture, Closed Treatment (02/15/16) [facility] [place]--Distal Rt Radius Fx H/O surgical procedure (~09/1997) a. total proctocolectomy with end ileostomy in stages b. Appendectomy c. Hernia repair d. excision of renal adenomas H/O total adrenalectomy Bilateral hernia repair (04/08/99) parastomal R/trelex mesh repair retinal breaks (12/24/03) S/P brain surgery for evacuation of a bleed- [facility] S/P ileostomy ileostomy moved from RLQ to LLQ- [facility] [place] transsphenoidal hypophysectomy (11/15/93) Transurethral prostatectomy (11/24/14) Family History Mother , CVA Stroke Father , lung CA No problems noted. Sister , COPD No problems noted. Brother , unknown at age 29. No problems noted. Brother Diabetes ASCVD (arteriosclerotic cardiovascular disease) Brother No problems noted. Sister Diabetes Sister No problems noted. Other Arthritis Social History (Updated 05/09/20 @ 22:20 by Vamshi Bass) Smoking/Tobacco Use Status: Former Tobacco Use Smoking risk assessment performed?: Yes Alcohol Intake: current Alcohol Intake frequency: holidays/special occasions only Alcohol type: beer Drug use: Never Substance use type: does not use Do you feel safe at home: Yes Do you feel safe in your relationship?: Yes Additional Social history: Has lived at [facility] for [facility] year, formerly had his own home in [facility]. Doesn't have family left in the area. Was in [employer]. Worked for 37 years at [employer] in [place]. Meds Home Medications and Allergies Home Medications Medication Instructions Recorded Confirmed Type epinephrine 0.3 mg SUB-Q PRN PRN 10/07/14 05/09/20 History fludrocortisone 0.15 mg PO DAILY #90 tab-cap 03/17/16 05/09/20 History folic acid 1 mg PO DAILY 10/24/16 05/09/20 History montelukast 10 mg PO DAILY #90 tab-cap 01/03/17 05/09/20 Rx BD Regular Bevel [place] #12 ea 11/16/17 12/26/18 Rx budesonide-formoterol HFA 160 1 puff INHALATION BID #3 canister 02/07/18 05/09/20 Rx mcg-4.5 mcg/actuation aerosol inhaler cyanocobalamin (vitamin B-12) 1,000 mcg IM .Q 60 DAYS 07/30/18 05/09/20 History fluticasone propionate 2 spray NS HS 07/30/18 05/09/20 History hydrocortisone 5 mg PO BID@0800,1700 07/30/18 05/09/20 History hydrocortisone 20 mg PO DAILY 07/30/18 05/09/20 History ondansetron HCl 4 mg PO .Q6H, PRN 07/30/18 05/09/20 History mirtazapine 3.75 mg PO .QHS 01/02/19 05/09/20 History multivitamin,tx-minerals 1 tab PO DAILY 01/02/19 05/09/20 History ergocalciferol (vitamin D2) 50,000 unit PO QMONTH 01/12/20 05/09/20 History methotrexate sodium 10 mg PO QWEEK 01/12/20 05/09/20 History pantoprazole 40 mg PO DAILY 01/12/20 05/09/20 History loperamide [Imodium A-D] 2 mg PO QID PRN #0 tab 01/14/20 05/09/20 Rx psyllium husk (aspartame) 3.4 pwd PO TID #340 g 01/14/20 05/09/20 Rx [[facility] Fiber] hydrocodone-acetaminophen [Vicodin] 1 tab PO Q6H PRN 05/09/20 05/09/20 History lacosamide [Vimpat] 100 mg PO BID 05/09/20 05/09/20 History Allergies Allergy/AdvReac Type Severity Reaction Status Date / Time latex Allergy Intermediate rash, Verified 05/09/20 18:02 itching plasma protein fraction Allergy Intermediate Hives Verified 05/09/20 18:02 acebutolol Allergy Unknown Verified 05/09/20 18:02 promethazine Allergy Unknown Verified 05/09/20 18:02 pseudoephedrine Allergy Unknown Verified 05/09/20 18:02 terazosin Allergy Unknown Verified 05/09/20 18:02 tramadol HCl [From Ultracet] Allergy Unknown Verified 05/09/20 18:02 ceftriaxone Allergy Unverified 05/09/20 18:02 chlorpheniramine Allergy Unverified 05/09/20 18:02 venom-honey bee Allergy Verified 05/09/20 18:02 [bee venom (honey bee)] ferrous sulfate AdvReac Severe Stomach Verified 05/09/20 18:02 aches tamsulosin HCl [From Flomax] AdvReac Severe Dizziness/L Verified 05/09/20 18:02 ightheade Antihistamines - Alkylamine AdvReac Unknown affected Verified 05/09/20 18:02 prostate cefuroxime AdvReac Unknown daark urine Verified 05/09/20 18:02 plasma human Allergy Intermediate Hives Uncoded 05/09/20 18:02 Exam Narrative Exam Narrative: GEN: Alert and oriented, pleasent and cooperative, gives linear history. Sitting in bed leaning toward right side, moving to try to get comfortable. HEENT: Head atraumatic, though old defect in skull on left. Conjunctiva clear, no icterus. PEERL, EOMI. no rhinorrhea. MMM, OP benign. Neck is supple with no masses or lymphadenopathy, trachea midline LUNGS: CTAB with normal effort CV: RRR with no murmurs, gallops, or rubs. ABD: +BS, soft, NT/ND. osteomy bag in place EXT: no cyanosis, clubbing, or edema MSK: No joint redness or swelling NEURO: CN 2-12 grossly intact. Normal movement of 4 extremities, equal strength neal in LE.. Nl sensation to light touch in LE and groin. Normal speech and coordination SKIN: No rashs or open wounds small bruises on forarms.. PSYCH: normal mood and affect Results Imaging Additional studies: NSR, nl intervals, no peaked Ts EKG: report reviewed and image reviewed Labs Result diagrams: 05/09/20 18:35 05/09/20 18:35 Labs: Laboratory Results - last 24 hr 05/09/20 05/09/20 18:35 18:35 WBC 7.84 RBC 4.19 L Hgb 13.1 L Hct 41.0 MCV 97.9 H MCH 31.3 MCHC 32.0 RDW 15.9 H Plt Count 112 L MPV 12.6 H Immature Gran % 0.8 Neutrophils % 72.4 Lymphocytes % 12.9 Monocytes % 12.1 Eosinophils % 1.5 Basophils % 0.3 Nucleated RBC % 0 Absolute Neutrophils 5.68 Absolute Lymphocytes 1.01 L Absolute Monocytes 0.95 H Absolute Eosinophils 0.12 Absolute Basophils 0.02 Sodium 136 Potassium 6.2 H* Chloride 103 Carbon Dioxide 19.3 L Anion Gap 13.7 H BUN 27 H Creatinine 2.0 H Estimated GFR/1.73 m2 32.56 Glucose 106 Calcium 9.3 Magnesium 1.6 L Total Bilirubin 0.8 AST 42 H ALT 51 Alkaline Phosphatase 162 H Total Protein 8.7 H Albumin 4.1 Last Vital Signs Temp 36.4 C L 05/09/20 20:54 Pulse 99 H 05/09/20 20:54 Resp 19 05/09/20 20:54 BP 129/72 05/09/20 20:54 Pulse Ox 97 05/09/20 20:54 COVID-19 Screening Have you, or household traveled for leisure in last 14 days?: No Had IN PERSON contact w/suspected or confirmed C-19 person: No
[2020-05-09] MEDS: Normal Saline Flush 10 ML SYR IVP (22:40)
[2020-05-09] MEDS: Montelukast 10 MG TAB PO (22:40)
[2020-05-09] MEDS: HYDROcodone 5/Acetaminophen 325 TAB PO (22:42)
[2020-05-09] MEDS: MAGNESIUM SULFATE 1 GM/100 ML BAG IVPB (22:43)
[2020-05-09] MEDS: Normal Saline 500 ML 30 ML IV (22:45)
[2020-05-09] MEDS: Fluticasone NASAL SPRAY 16 GM BTL NS (23:19)
[2020-05-10] VITALS (7 sets, daily range): BP systolic 110–148; BP diastolic 59–70; PULSE 71–78; RESP 16–18; TEMP 36.1–36.6; O2SAT 95–98
--- NOTE | 2020-05-10 | DI.RAD_ITS ---
EXAM: XR LUMBAR SPINE COMPLETE CLINICAL HISTORY: left posterior hip/buttocks pain with sciatica. TECHNIQUE: 2D digital imaging was performed. COMPARISON: CT CT ABDOMEN PELVIS W from 01/12/2020 FINDINGS: There is age-related osteopenia. There is a compression fracture of the superior endplate at the L1 vertebral body which was evident on the December 2019 CT scan.. No evidence of acute fracture nor lis thesis. There is advanced disc space narrowing at L5-S1 level again noted as well as moderate disc s pace narrowing at L4-5 and L3-4 levels. At L3-4 level there is advanced disc space narrowing on the right side of this disc space with thumb no significant narrowing of the left side of this disc space . This probably results in an element of asymmetric foraminal stenosis at this level (right-sided). There is also bilateral foraminal stenosis evident at L5-S1 level incidentally noted is ankylosis of the sacroiliac joints bilaterally. IMPRESSION: 1. Degenerative disc disease as described above with asymmetric narrowing of the L3-4 disc space, res ulting in asymmetric foraminal narrowing. 2. Nonacute compression fracture of L1, as was also evident on the CT scan of December 2019. 3. Ankylosis of both sacroiliac joints is noted. This was also evident on the prior CT scan. DATA REPOSITORY: RADIATION DOSE DELIVERED:
--- NOTE | 2020-05-10 | DI.RAD_ITS ---
EXAM: XR HIP LT COMPLETE AP PELVIS CLINICAL HISTORY: Left sided posterior hip/buttocks pain. TECHNIQUE: 2D digital imaging was performed. COMPARISON: CR LUMBAR SPINE COMPLETE from 09/04/[address] ABDOMEN PELVIS W from 01/12/2020 FINDINGS: There is no evidence of pelvic nor hip fracture. Mild-moderate degenerative changes in the hips are noted. There is ankylosis of both sacroiliac joints. There is increased density incidentally noted over the left iliac bone-left iliac fossa. This is mos t probably related to the ostomy site at this level which is evident on the CT scan of December 2019. There are no significant lesions in the left iliac bone as per that recent CT scan. Ankylosis of adelfo th SI joints is evident on that CT scan. IMPRESSION: No pelvic or hip fractures evident. Mild degenerative changes both hips approximately equal. Ankylosis of both sacroiliac joints. Left sided ostomy. DATA REPOSITORY: RADIATION DOSE DELIVERED:
--- NOTE | 2020-05-10 00:51 | DI.VRAD_ITS ---
PROCEDURE INFORMATION: Exam: XR Lumbosacral Spine, 4 or 5 Views Exam date and time: 05/10/2020 12:00 AM Age: 79 years old Clinical indication: Patient HX: Left posterior/buttock pain with sciatica TECHNIQUE: Imaging protocol: XR of the lumbosacral spine, 4 or 5 views. COMPARISON: CR XR HIP LT COMPLETE AP PELVIS 05/10/2020 12:29 AM FINDINGS: Bones/joints: Lumbar degenerative disc disease noted throughout the lumbar spine. Lumbar scoliosis noted. L1 wedging may reflect an old compression fracture. Clinical correlation is recommended. Bony spurring noted in the region of the neural foramina at L5/S1 resulting in neural foraminal stenosis. Soft tissues: Unremarkable. IMPRESSION: 1. Lumbar degenerative disc disease noted throughout the lumbar spine. 2. L1 wedging may reflect an old compression fracture. Clinical correlation is recommended. 3. Bony spurring noted in the region of the neural foramina at L5/S1 resulting in neural foraminal stenosis. Dictated and Authenticated by: Steven Hsu MD. Ordering:CECY Bonds MD
--- NOTE | 2020-05-10 01:17 | DI.VRAD_ITS ---
PROCEDURE INFORMATION: Exam: XR Left Hip with Pelvis when Performed Exam date and time: 05/10/2020 12:01 AM Age: 79 years old Clinical indication: Hip pain; Left hip; Patient HX: Left sided posterior hip/buttock pain TECHNIQUE: Imaging protocol: XR Left hip with pelvis when performed. Views: 2 or 3 views. COMPARISON: CT ABDOMEN PELVIS W 01/12/2020 6:50 AM FINDINGS: Bones/joints: Moderate degenerative changes No acute fracture. Soft tissues: Ovoid areas of increased density adjacent to the left iliac wing/hip demonstrate partial mobility and were demonstrated in the left pelvis on the lumbar spine films may represent dense stool in the bowel versus contrast IMPRESSION: No acute findings. Moderate degenerative changes Dictated and Authenticated by: Alireza Nielsen MD. Ordering:CECY Bonds MD
[2020-05-10] MEDS: Normal Saline Flush 10 ML SYR IVP ×3 (02:13→22:39)
[2020-05-10] MEDS: Sodium Zirconium Cyclosilicate 10 GM PKT PO ×3 (06:14→22:24)
[2020-05-10] MEDS: HYDROcodone 5/Acetaminophen 325 TAB PO (06:20)
[2020-05-10 06:57] LABS: ALT 40 U/L (16-63); AST 32 U/L (15-37); Albumin 3.6 g/dL (3.4-5.0); Alkaline Phosphatase 151 U/L (46-116); Anion Gap 10.7 mmol/L (3-11); BUN 27 mg/dL (7-18); Bilirubin, Total 0.6 mg/dL (0.2-1.0); CO2 22.3 mmol/L (21.0-32.0); CREATININE 1.8 mg/dL (0.70-1.30); Calcium 9.2 mg/dL (8.5-10.1); Chloride 105 mmol/L (98-107); Estimated GFR 36.77 (mL/min/1.73m2); Glucose 97 mg/dL (74-106); Magnesium 1.9 mg/dL (1.8-2.4); Sodium 138 mmol/L (136-145); Total Protein 7.8 g/dL (6.4-8.2)
[2020-05-10 07:11] LABS: Potassium 4.8 mmol/L (3.5-5.1)
[2020-05-10] MEDS: Hydrocortisone 10 MG TAB 20 MG PO (08:02)
[2020-05-10] MEDS: Pantoprazole 40 MG TABCR PO (08:02)
[2020-05-10] MEDS: Folic Acid 1 MG TAB PO (08:02)
[2020-05-10] MEDS: Lacosamide 100 MG TAB PO ×2 (08:02→19:30)
[2020-05-10] MEDS: Psyllium PKT 1 EACH PO ×2 (08:02→14:46)
[2020-05-10] MEDS: Hydrocortisone 10 MG TAB 5 MG PO ×2 (08:03→16:48)
[2020-05-10] MEDS: Budesonide/Formoterol 160/4.5 6 GM 60 PUFF INH IH ×2 (08:38→19:32)
[2020-05-10] MEDS: Fludrocortisone 0.1 MG TAB 0.2 MG PO (09:55)
--- NOTE | 2020-05-10 11:21 | IN_ITS ---
Date of service: 05/10/20 Time of Service: 09:38 PT Notes Visit Reasons: HYPERKAEMIA Inpatient Physical Therapy Evaluation Date: 05/10/20 Referring Doctor: Vamshi Bass MD PT Orders: PT CONSULT: Fall Safety Assessment Precautions: Standard. Fall. Patient Profile/Admitting Diagnosis: Liang is a 79 yo male that presented to the ER on 05/09/20 from SNF for hyperkalemia. He is currently under observation at the hospital. In addition to medical diagnosis, he has been experiencing pain in left buttock to calf for the last three weeks. He denies numbness or tingling. Feels worse with standing, walking, laying flat supine and has been able to find some relief with right sidelying and legs draping forward over edge of bed. 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 Allergic rhinitis (11/06/15) Ankylosing spondylitis Asthma Atrial fibrillation (11/06/15) Cholecystitis, acute with cholelithiasis Cholelithiasis Cholestatic jaundice Chronic back pain Chronic deep vein thrombosis (DVT) of lower extremity (11/06/15) Chronic systolic CHF (congestive heart failure) (11/06/15) CKD (chronic kidney disease) stage 3, GFR 30-59 ml/min (11/06/15) COPD (chronic obstructive pulmonary disease) Current use of corn shucker anticoagulation (11/06/15) 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 Iron deficiency anemia (11/06/15) Lichen planus (11/06/15) Malignant neoplasm of colon (11/06/15) Obesity (11/06/15) Obstructive uropathy DEVORAH on CPAP (11/06/15) Osteopenia (11/06/15) Dexa T -2.1 femoral neck 2009 Dexa T -1.8 LS spine 2006 Osteoporosis of forearm (08/19/16) T-score -3.7 [facility] Rheumatoid arthritis (11/06/15) Seizure disorder Small bowel obstruction (02/27/14) Subdural hematoma Uncomplicated asthma (11/06/15) Urinary retention UTI (urinary tract infection) Weakness Surgical History Cholecystectomy (02/15/16) [facility] cystoureteroscopy,lithotrypsy (05/11/15) with L stent insertion Extraction of cataract (07/28/16) R eye surgeon Amanda Ochoa MD Fracture, Closed Treatment (02/15/16) [facility] [place]--Distal Rt Radius Fx H/O surgical procedure (~09/1997) a. total proctocolectomy with end ileostomy in stages b. Appendectomy c. Hernia repair d. excision of renal adenomas H/O total adrenalectomy Bilateral hernia repair (04/08/99) parastomal R/trelex mesh repair retinal breaks (12/24/03) S/P brain surgery for evacuation of a bleed- [facility] S/P ileostomy ileostomy moved from RLQ to LLQ- [facility] transsphenoidal hypophysectomy (11/15/93) Transurethral prostatectomy (11/24/14) Social History/Home Situation: Lives in SNF at [facility], ambulates with FWW. Current Functional Limitations: Decreased activity tolerances due left LE pain Equipment Owned/DME: FWW Subjective: Cleared by nursing to see patient and he is agreeable to PT. Patient laying on right side in bed at time of consult and connected to telemetry. Objective: General Observation: Intermittent pain and needs to frequently change positions. Tenderness in left lateral buttock with palpation. Mental Status: A&Ox3 Pain: 6/10 left hip into calf ROM: Right Upper Extremity: R UE ROM Within functional limits Left Upper Extremity: L UE ROM Within functional limits Right Lower Extremity: R LE ROM Within functional limits Left Lower Extremity: L LE ROM Within functional limits Strength: Right Upper Extremity: Grossly 5/5 R UE strength Left Upper Extremity: Grossly 5/5 L UE strength Right Lower Extremity: Grossly 5/5 R LE strength Left Lower Extremity: Grossly 5/5 L LE strength Sensation: Intact, no difference between sides in LE Bed Mobility/Transfers: Independent with bed mobility and sit<> transfers Gait: Ambulate 8 ft in room with supervision using FWW, decreased tolerance due to left LE pain Balance: Static Sitting: Normal Dynamic Sitting: Normal Static Standing: Good Dynamic Standing: Good Therapeutic Activity: Seated hamstring stretch Seated calf stretch with strap - too aggressive Seated light LAQ for nerve mobility Seated trunk rotation and sidebend for lumbar mobility - feels best with right sidebend, opening on left and with right rotation Seated hip ER stretch for left Right sidelying with modified piriformis stretch Instructed patient in nerve involvement with symptoms likely coming from spine, but nerve mobilization important to reduce symptoms Special Tests: Mobility Limitations Standardized Measure [facility] AM-PAC 6 clicks Basic Mobility Inpatient Short Form: Raw Score: 20 CMS Score: 35.83% Informed Consent/Education: Patient instructed in purpose of PT consult and plan of care. Assessment: Patient is a 79 year old male referred to physical therapy services with the diagnosis of hyperkalemia and he has complaints of pain in left buttock to calf for the last three weeks. Patient presents with clinical signs and s ymptoms consistent with difficulty walking, decreased endurance, and decreased functional activity tolerances. Symptoms in left LE do seem to be affected by the nerve. He gets the most relief with right sidelying which opens the left side some and legs hanging over side of bed. During session the relief in this position comes quickly. He feels much worse with attempt at standing and walking. Sitting tolerated in short doses. Light left LE extension mobilization helps in short intervals as does left seated hip ER stretch. Instructed him that maintaining activity is important even if in small doses. Patient is assessed as a Moderate [id number] complexity based on the following: History: See above Examination: See above Presentation: Evolving Decision Making: Moderate Goals: Goals X1 week 1. Supine-Sit Independent 2. Sit-Supine Independent 3. Sit-Stand Independent 4. Stand-Sit Independent 5. Bed-Chair Independent 6. Chair-Bed Independent 7. Gait Ambulate 50ft with supervision using FWW 8. Independent with home exercise program Plan of Care/Treatment Plan: 1-2x/day, 7 days/week x 1 week. Plan of care has been reviewed with the MANUAL EQUIPMENT MECHANIC providing the service under Physical Therapy direction. Initiate Physical Therapy intervention for strengthening, bed mobility, transfers, gait, stairs, balance training, use of assistive device. DISCHARGE RECOMMENDATIONS: Return to SNF placement once medically discharged and will benefit from PT for left LE symptoms TREATMENT CODE/TIME: 9:38-10:17 (39 minutes), [id number], [id number] NEW Joe, PT, DPT, OCS [place] [facility]
--- NOTE | 2020-05-10 16:32 | PGE_ITS ---
Date of Service Date of service: 05/10/20 Time of Service: 16:32 Assessment and Plan Assessment and plan (1) Acute hyperkalemia: Status: Acute Assessment and plan: Discontinue Lokelma as his potassium is now under 5. Repeat BMP in the morning. I agree with Dr. Bass's decision to increase his mineralocorticoid replacement. Consider nephrology referral upon discharge. EKG showed no evidence of hyper kalemia changes such as peaked T waves. Patient is not on any potassium sparing medications or potassium supplements. He is not on any MARIA DE JESUS inhibitor's or ARB medications that would cause hyperkalemia. The main obvious cause would be his adrenal insufficiency. I will ask for dietary consult in the morning to work with him on obtaining a low potassium diet. (2) Acute back pain with sciatica: Status: Acute Assessment and plan: I agree with Dr. Bass's decision to check a PSA given his prior history of prostate cancer. Plain film x-rays show severe DJD and old lumbar compression fracture. I will order outpatient MRI scan upon discharge tomorrow. For now we will treat him with gabapentin and see if this improves his pain. Will make referral to either pain management here locally or to the spine center at [facility] upon discharge. Qualifiers: Laterality: left Qualified Code(s): M54.42 - Lumbago with sciatica, left side (3) Arthur's disease: Status: Chronic Assessment and plan: [place]. [place] [facility] [place]. Continue hydrocortisone and fludricortisone. I agree with Dr. Bass's decision to increase his fludrocortisone to 0.2 mg daily. (4) CKD (chronic kidney disease) stage 3, GFR 30-59 ml/min: Status: Chronic Assessment and plan: Volume status curently euvolemic. Monitor. Replace magniesium. Qualifiers: Chronic kidney disease stage 3 subtype: unspecified whether 3a or 3b Qualified Code(s): N18.30 - Chronic kidney disease, stage 3 unspecified (5) DVT prophylaxis: Status: Acute Assessment and plan: SCDs given low plts and latex allergy (6) Discharge planning issues: Status: Acute Assessment and plan: Discharge to the [facility] in the morning if his potassium remains stable overnight. Subjective Subjective Interval history since last seen: Patient was admitted last night by Dr. Bass. See his H&P for details. Patient was admitted for hyperkalemia. His outpatient serum potassium was elevated at 5.7 on 05/08/20 and repeat of 6.1 yesterday and again 6.2 when he was sent to the ER. He did not have peaked T waves on his EKG and he was having no symptoms referrable to arrhythmias. Overnight he has remained in NSR. He was treated w/ two doses of Lokelma and his repeat K+ level was 4.8 this a.m. During his evaluation by Dr. Bass, the patient mentioned he has been having severe left lower back pains w/ sciatica radiating down his left leg to his calf. This has been going on for two weeks. Dr. Bass ordered LS spine xray which revealed old L1 compression frx and severe DDD w/ asymmetric narrowing of L3-L4 disc space causing asymmetrical foraminal narrowing. He also has disc space narrowing at L4-L5 and L5-S1. Dr. Bass was concerned for recurrent prostate cancer and ordered PSA. At this point I am going to try him on gabapentin for his radicular pain and order an outpatient MRI of his LS spine. For his hyperkalemia, we have increased his fludrocortisone to see if this improves his hyperkalemia and will ask for dietary consult on limiting high potassium containing foods. Otherwise he can return to [facility] tomorrow and should be referred to senior technical specialist for further workup and treatment of his low back pains. Patient denies any bowel incontinence. He has no focal weakness in his lower extremities. Exam Narrative Exam Narrative: Elderly male lying in bed in semirecumbent position. Examination of his lower extremities reveals normal strength and range of motion in both lower extremities. Pain is elicited with straight leg raising. He has normal DTRs over both patella and ankle jerk reflexes. Babinski's are absent bilaterally. Sensory exam is grossly intact to light touch and pain in both lower extremities. Straight leg raising I was able to elicit pain from his left buttock cheek down his left leg to his calf. Objective Last Vital Signs Temp 36.6 C 05/10/20 15:24 Pulse 72 05/10/20 15:44 Resp 18 05/10/20 15:24 BP 114/59 L 05/10/20 15:24 Pulse Ox 98 05/10/20 15:24 Laboratory Results - last 24 hr 05/09/20 05/09/20 05/10/20 18:35 18:35 06:22 WBC 7.84 RBC 4.19 L Hgb 13.1 L Hct 41.0 MCV 97.9 H MCH 31.3 MCHC 32.0 RDW 15.9 H Plt Count 112 L MPV 12.6 H Immature Gran % 0.8 Neutrophils % 72.4 Lymphocytes % 12.9 Monocytes % 12.1 Eosinophils % 1.5 Basophils % 0.3 Nucleated RBC % 0 Absolute Neutrophils 5.68 Absolute Lymphocytes 1.01 L Absolute Monocytes 0.95 H Absolute Eosinophils 0.12 Absolute Basophils 0.02 Sodium 136 138 Potassium 6.2 H* 4.8 D Chloride 103 105 Carbon Dioxide 19.3 L 22.3 Anion Gap 13.7 H 10.7 BUN 27 H 27 H Creatinine 2.0 H 1.8 H Estimated GFR/1.73 m2 32.56 36.77 Glucose 106 97 Calcium 9.3 9.2 Magnesium 1.6 L 1.9 Total Bilirubin 0.8 0.6 AST 42 H 32 ALT 51 40 Alkaline Phosphatase 162 H 151 H Total Protein 8.7 H 7.8 Albumin 4.1 3.6
[2020-05-10] MEDS: Gabapentin 100 MG CAP PO ×2 (16:51→19:31)
--- NOTE | 2020-05-10 19:11 | INITIAL_ITS ---
- If Service Date Differs Date of service: 05/10/20 Time of Service: 19:17 Care Management Initial Assess REASON FOR HOSPITALIZATION:: Hyperkalemia PAST MEDICAL HISTORY/PAST SURGICAL HISTORY:: Abdominal adhesions (11/06/15). Abdominal wall fistula. Arthur's disease. s/p excision of renal adenomas. Allergic rhinitis (11/06/15). Ankylosing spondylitis. Asthma. Atrial fibrillation (11/06/15). Cholecystitis, acute with cholelithiasis. Cholelithiasis. Cholestatic jaundice. Chronic back pain. 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 Chronic systolic CHF (congestive heart failure) (11/06/15). CKD (chronic kidney disease) stage 3, GFR 30-59 ml/min (11/06/15). COPD (chronic obstructive pulmonary disease). Current use of ad terminal makeup operator anticoagulation (11/06/15). 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 Depression (08/14/17). Dermatitis (11/06/15). lichenoid. Diarrhea. DVT of upper extremity (deep vein thrombosis). 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 Fatigue (11/06/15). Gall stone pancreatitis. H/O ulcerative colitis. Hypertension. Ileostomy in place. Inflamed seborrheic keratosis (08/18/16[place] [facility] [place] with [place]. Iron deficiency anemia (11/06/15). Lichen planus (11/06/15). Malignant neoplasm of colon (11/06/15). Obesity (11/06/15). Obstructive uropathy. DEVORAH on CPAP (11/06/15). Osteopenia (11/06/15). Dexa T - 2.1 femoral neck 2009. Dexa T -1.8 LS spine 2006. Osteoporosis of forearm (08/19/16). T-score -3.7 [facility]. Rheumatoid arthritis (11/06/15). Seizure disorder. Small bowel obstruction (02/27/14). Subdural hematoma. Un complicated asthma (11/06/15). Urinary retention. UTI (urinary tract infection). Weakness. Surgical History . Cholecystectomy (02/15/16). [facility]. cystoureteroscopy,lithotrypsy (05/11/15). with L stent insertion. Extraction of cataract (07/28/16). R eye. surgeon Amanda Ochoa MD. Fracture, Closed Treatment (02/15/16). [facility]--Distal Rt Radius Fx. H/O surgical procedure (~09/1997). a. total proctocolectomy with end ileostomy in stages. b. Appendectomy. c. Hernia repair. d. excision of renal adenomas. H/O total adrenalectomy. Bilateral. hernia repair (04/08/99). parastomal R/trelex mesh. repair retinal breaks (12/24/03). S/P brain surgery. for evacuation of a bleed- [facility]. S/P ileostomy. ileostomy moved from [facility] to [facility]. transsphenoidal hypophysectomy (11/15/93). Transurethral prostatectomy (11/24/14) PREVIOUS FUNCTIONAL STATUS/SOCIAL/FAMILY SUPPORTS:: Liang has resided at [facility] and [facility] for the past 3 years. He does not have any children and his is . He has an older sister who lives in [place] and a couple of nieces. Liang states that he is no longer independent with all of his ADLs. He requires assistance with dressing and uses a walker for ambulation. ADVANCE DIRECTIVES:: [facility] Has patient been provided with info about the portal/API?: No Did the patient sign up for the portal?: No CODE STATUS:: DNR/DNI INSURANCE COVERAGE / FINANCIAL ISSUES:: Medicare. [employer] U IDs only CURRENT HOME/COMMUNITY SERVICES/EQUIPMENT:: [facility]. PRIMARY CARE PHYSICIAN:: Mitra Champion POTENTIAL DISCHARGE NEEDS:: Coordinated return to the [facility]. PATIENT/FAMILY EDUCATION NEEDS:: Review discharge instructions, discuss Ask Me Three. ANTICIPATED BARRIERS TO DISCHARGE:: None identified. TRANSPORTATION:: Via private vehicle with [facility]-coordinated by JOSE ANTONIO. PLAN:: Liang will return to the [facility] tomorrow via [facility]-coordinated by CM. He will have an outpatient referral to [facility] assistive technology specialist for further workup and treatment of his low back pains.
[2020-05-10] MEDS: Fluticasone NASAL SPRAY 16 GM BTL NS (22:23)
[2020-05-10] MEDS: Montelukast 10 MG TAB PO (22:24)
[2020-05-11] MEDS: HYDROcodone 5/Acetaminophen 325 TAB PO ×2 (03:59→12:37)
[2020-05-11] MEDS: Sodium Zirconium Cyclosilicate 10 GM PKT PO (06:38)
[2020-05-11 07:33] LABS: Anion Gap 8.4 mmol/L (3-11); BUN 30 mg/dL (7-18); CO2 24.6 mmol/L (21.0-32.0); CREATININE 1.8 mg/dL (0.70-1.30); Calcium 8.8 mg/dL (8.5-10.1); Chloride 102 mmol/L (98-107); Estimated GFR 36.77 (mL/min/1.73m2); Glucose 105 mg/dL (74-106); Potassium 4.9 mmol/L (3.5-5.1); Sodium 135 mmol/L (136-145)
[2020-05-11] MEDS: Budesonide/Formoterol 160/4.5 6 GM 60 PUFF INH IH (08:16)
[2020-05-11 08:17] VITALS: BP 113/67; PULSE 94; RESP 20; TEMP 36.4; O2SAT 95
[2020-05-11] MEDS: Fludrocortisone 0.1 MG TAB 0.2 MG PO (09:17)
[2020-05-11] MEDS: Folic Acid 1 MG TAB PO (09:17)
[2020-05-11] MEDS: Gabapentin 100 MG CAP PO (09:17)
[2020-05-11] MEDS: Hydrocortisone 10 MG TAB 20 MG PO (09:17)
[2020-05-11] MEDS: Lacosamide 100 MG TAB PO (09:17)
[2020-05-11] MEDS: Pantoprazole 40 MG TABCR PO (09:17)
[2020-05-11] MEDS: Hydrocortisone 10 MG TAB 5 MG PO (09:18)
[2020-05-11] MEDS: Nystatin POWDER 15 GM JAR TP (09:21)
[2020-05-11 09:24] LABS: PSA, Diagnostic 0.3 ng/mL (0.0-6.5)
--- NOTE | 2020-05-11 11:29 | CMDISCH_ITS ---
LACE Index Scoring Tool - Questions: Length of Stay (in days): 2 Acuity (Admit via E.D.?): Yes Comorbidities: Congestive Heart Failure, Chronic Pulmonary Disease, Connective Tissue Disease, Liver or Renal Disease E.D. Visits: 2 - Answers: Total Score: 12 Risk of Readmission: High Risk Care Management Discharge Reason for Hospitalization: Hyperkalemia Discharge Plan: Liang will return to the [facility] tomorrow via [facility]-coordinated by CM. Per MD, he will have an outpatient referral to [facility] mobile marketing specialist for further workup and treatment of his low back pains. Patient/Family Education Needs: Review of discharge instructions, discuss Ask Me Three. Services Needed at Discharge: Custodial Facility ([facility] H&R return to residence ), Transportation ([facility] private vehicle )
--- NOTE | 2020-05-11 11:29 | PDOC.CMDIS ---
LACE Index Scoring Tool - Questions: Length of Stay (in days): 2 Acuity (Admit via E.D.?): Yes Comorbidities: Congestive Heart Failure, Chronic Pulmonary Disease, Connective Tissue Disease, Liver or Renal Disease E.D. Visits: 2 - Answers: Total Score: 12 Risk of Readmission: High Risk Care Management Discharge Reason for Hospitalization: Hyperkalemia Discharge Plan: Liang will return to the [facility] tomorrow via [facility]-coordinated by CM. Per MD, he will have an outpatient referral [place] [facility] [place] for further workup and treatment of his low back pains. Patient/Family Education Needs: Review of discharge instructions, discuss Ask Me Three. Services Needed at Discharge: Fci Facility ([facility] H&R return to residence ), Transportation ([facility] private vehicle )
--- NOTE | 2020-05-11 12:58 | W.PM.DS.N ---
Date of service: 05/11/20 Time of Service: 12:59 DS: Diagnosis Discharge Diagnosis (1) Acute hyperkalemia: Status: Resolved Asessment and Plan: Patient should follow low potassium diet. His fludrocortisone dose was increased to 0.2 mg daily. Follow-up labs should be obtained in 1 week including a BMP patient should follow-up with his orthotic and prosthetic technician and I would consider obtaining an nephrology consult as well. (2) Acute back pain with sciatica: Status: Acute Asessment and Plan: Patient was started on gabapentin 100 mg 3 times daily which seemed to improve his radicular pain and that he showed increased mobility with less pain. An outpatient MRI scan of his lumbosacral spine has been ordered. He should be referred to pain management for nonsurgical management of his sciatica. (3) Arthur's disease: Status: Chronic Asessment and Plan: Fludrocortisone dose was increased as noted above. Please have the patient follow-up with his orthotic and prosthetic technician. (4) CKD (chronic kidney disease) stage 3, GFR 30-59 ml/min: Status: Chronic Asessment and Plan: Nephrology consultation is recommended. Discharge Plan Disposition Patient Disposition: SNF (LEVEL 1) [facility] Condition: Improving Discharge Details Reason For Visit: HYPERKALEMIA Admit Date/Time: 05/09/20 19:14 Admit Provider: Vamshi Bass Attending Provider: Vamshi Bass [facility]: 79-year-old gentleman who is a resident of the [facility] in [facility] has a prior history of colectomy with ileostomy, surgical adrenal insufficiency, chronic renal insufficiency with a GFR in the 30s as well as a history of ankylosing spondylitis paroxysmal atrial fibrillation COPD and hypertension and obstructive sleep apnea requiring CPAP and a seizure disorder. Patient was sent from the [facility] to the emergency department at [facility] on May 09, 2020 for evaluation and treatment of hyperkalemia. Outpatient labs demonstrate a potassium level 5.7 on May 08, 2020 and went up to as high as 6.1 on his outpatient labs obtained on the morning of admission. Repeat level was checked emergency department potassium level 6.2. He has had hyperkalemia in the past that improved with adjustment in his diet including discontinuation of orange juice. Patient denies any recent changes diet or medications although he did note that he ate a banana on the day prior to admission. He has not had a recent change in his ostomy output. Only new changes over the last 2 to 3 weeks has had increased left hip pain rating from the sacrum down the left buttock cheek and radiating down his left leg to his calf. It is worse with positional changes he has trouble lying on his left side and worse with walking. His treatment for his hyperkalemia included Lokelma for which she received a total of 5 doses. Follow-up chemistries showed his potassium was down to 4.8 the next morning of May 10, 2020 the day of discharge on May 11, 2020 his potassium remain in the normal range at 4.9. BUN and creatinine remained stable with a discharge BUN of 38 creatinine 1.8. Rest of his chemistries including CBC on admission shows stable chronic anemia hemoglobin 13.1 g hematocrit 41% with MCV of 97. White count was normal at 7800. Platelet count was low at 112,000 but up from his prior levels of 75-90,000. Send out SARS-CoV-2 is still pending at this time. Diagnostic imaging for his low back pain was obtained including a lumbosacral spinal x-ray which demonstrated degenerative disc disease with asymmetric narrowing of the L3-L4 disc space resulting in asymmetric foraminal narrowing. He has a nonacute compression fracture at L1 which was evident on prior CT scan in December 2019. He has ankylosis of both sacroiliac joints. This was also noted on prior CT scan. He also has significant disc space narrowing at L5-S1. Patient was started on gabapentin 100 mg 3 times a day for his sciatica. This did result in significant improvement in his discomfort he was now able to mobilize a little better he was able to sit up at the bedside without pain and able to lie flat in bed for the first time in weeks. Physical therapy was consulted please see their note for details. In summary they recommended continued physical therapy upon return to the senior care facility to improve his left sided sciatica pain. It is recommended that the patient follow-up with pain management as an outpatient to consider either epidural steroid shots or nerve block to help with his radicular pain. If this does not improve things he should be referred to a spine surgeon for further consideration. An order has been placed for outpatient MRI scan of his lumbosacral spine to evaluate the severity of his DJD looking for evidence of spinal stenosis. At this time he has no long track signs such as hyperreflexia of his legs or a Babinski sign. He has normal sensory exam to light touch and pain over his left lower leg and right lower leg. He has no bowel or bladder incontinence or saddle block anesthesia. I feel that he can be worked up as an outpatient regarding his sciatica. I recommend that his gabapentin dose be adjusted based on his renal function and his comfort level. His fludrocortisone dose was increased slightly to 0.2 mg as his [place]'s disease is the only thing we could find for cause for recurrent hyperkalemia. He should be kept on low potassium diet. Home Meds and New Rx's Prescriptions: New gabapentin 100 mg Capsule 100 mg PO TID Qty: 90 RF: 0 Continued budesonide-formoterol [Symbicort] 160-4.5 mcg/actuation HFA aerosol inhaler 1 puff Inhalation BID Qty: 3 RF: 3 folic acid 1 MG tablet 1 mg PO DAILY RF: 0 montelukast 10 MG tablet 10 mg PO DAILY Qty: 90 RF: 3 (DME) BD Regular [place]vel [place] 1 EACH needle 1 ea Miscellaneous monthly Qty: 12 RF: 0 epinephrine 0.3 MG/SYR auto-injector 0.3 mg Sub-Q PRN PRNRF: 0 methotrexate sodium 10 mg Tablet 10 mg PO QWEEK RF: 0 pantoprazole 40 mg tablet,delayed release (DR/EC) 40 mg PO DAILY RF: 0 ergocalciferol (vitamin D2) 1,250 mcg (50,000 unit) capsule 50,000 unit PO QMONTH RF: 0 [facility] Fiber 3.4 gram/5.8 gram powder 3.4 pwd PO TID Qty: 340 RF: 0 loperamide [Imodium A-D] 2 mg Tablet 2 mg PO QID PRNQty: 0 RF: 0 hydrocodone-acetaminophen 5-300 mg Tablet 1 tab PO Q6H PRNRF: 0 Vimpat 100 mg tablet 100 mg PO BID RF: 0 ondansetron HCl 4 mg Tablet 4 mg PO .Q6H, PRN RF: 0 fluticasone propionate 50 mcg/actuation spray,suspension 2 spray NS HS RF: 0 hydrocortisone 5 mg Tablet 5 mg PO BID@0800,1700 RF: 0 hydrocortisone 20 mg Tablet 20 mg PO DAILY RF: 0 cyanocobalamin (vitamin B-12) 1,000 mcg/mL solution 1,000 mcg IM .Q 60 DAYS RF: 0 mirtazapine 15 mg Tablet 3.75 mg PO .QHS RF: 0 multivitamin,tx-minerals Tablet 1 tab PO DAILY RF: 0 Changed fludrocortisone 0.1 MG tablet 0.2 mg PO DAILY Qty: 90 RF: 3 Discharge Instructions Instructions: Potassium Content of Foods List (DC), Hyperkalemia (DC) Stand Alone Forms: Nursing Discharge Form Referrals: [facility] [OTHER] - 06/29/20 11:15 am Activity:: Activity as Tolerated Equipment/Supplies:: No Equipment Needed Diet:: Low potassium Discharge Orders Discharge Orders: Discharge Order (Routine); Ordered 05/11/20 Ordered By: Rich Tierney Ambulatory Orders: MR lumbar spine wo (Routine) Timeframe: 1 Week Facility: [facility] - Location: DIAGNOSTIC IMAGING DEPT Ordered By: Rich Pfeiffer DS: Summary Time Spent with Patient providing and/or coordinating discharge services: Greater than 30 minutes Status at Discharge Functional status at discharge: uses cane/walker Overall status at discharge: patient is progressing back to baseline Mental Status: mental status grossly normal Speech and Movement: speech and movement normal Mood: congruent mood Affect: normal affect Exam Narrative Exam Narrative: Patient sitting up at the bedside eating his lunch he is in no discomfort at this time. Minimal tenderness over the left SI joint and left ischium. No pain with range of motion of his left leg. Psych Mental Status: mental status grossly normal Speech and Movement: speech and movement normal Mood: congruent mood Affect: normal affect DS: Data Vitals/I&O Vitals and I&O: Vital Signs Temperature 36.4 C L 05/11/20 08:17 Temperature Source Tympanic 05/11/20 08:17 Pulse 94 H 05/11/20 08:17 Pulse Rhythm Regular 05/11/20 09:15 Pulse 91 H 05/09/20 20:20 Respiratory Rate 20 05/11/20 08:17 Respiratory Effort Non-Labored 05/11/20 09:15 Respiratory Depth Normal 05/11/20 09:15 Respiratory Pattern Normal 02/15/21 09:15 Blood Pressure 113/67 05/11/20 08:17 Blood Pressure Mean 84 05/09/20 20:17 Blood Pressure Position Sitting 05/09/20 17:58 Pulse Oximetry 95 05/11/20 08:17 Oxygen Delivery Method Room Air 05/11/20 08:17 Oxygen Flow Rate 0 05/11/20 08:17 Pain Level 2 05/11/20 08:17 Comment 05/10/20 15:24 Intake & Output 05/10/20 05/11/20 05/11/20 23:59 11:59 23:59 Intake Total 610 / 1552.5 480 / 480 Output Total 75 / 75 Balance 610 / 802.5 405 / 405 Weight 96.7 kg Intake: IV 10 / 172.5 Oral 600 / 1380 480 / 480 Output: Stool 75 / 75 Other: Urine Color Yellow Urine Appearance Cloudy Clear Urine Odor Normal Comment Patient reports normal urination. 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 s/p excision of renal adenomas Allergic rhinitis (11/06/15) Ankylosing spondylitis Asthma Atrial fibrillation (11/06/15) Cholecystitis, acute with cholelithiasis Cholelithiasis Cholestatic jaundice Chronic back pain Chronic deep vein thrombosis (DVT) of lower extremity (11/06/15) Chronic systolic CHF (congestive heart failure) (11/06/15) CKD (chronic kidney disease) stage 3, GFR 30-59 ml/min (11/06/15) COPD (chronic obstructive pulmonary disease) Current use of terminologist anticoagulation (11/06/15) 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 Iron deficiency anemia (11/06/15) Lichen planus (11/06/15) Malignant neoplasm of colon (11/06/15) Obesity (11/06/15) Obstructive uropathy DEVORAH on CPAP (11/06/15) Osteopenia (11/06/15) Dexa T -2.1 femoral neck 2009 Dexa T -1.8 LS spine 2006 Osteoporosis of forearm (08/19/16) T-[place]3.7 [facility] [place]umatoid arthritis (11/06/15) Seizure disorder Small bowel obstruction (02/27/14) Subdural hematoma Uncomplicated asthma (11/06/15) Urinary retention UTI (urinary tract infection) Weakness Surgical History Cholecystectomy (02/15/16) [facility] [place]reter[place],lithotrypsy (05/11/15) with L stent insertion Extraction of cataract (07/28/16) R eye surgeon Amanda Ochoa MD Fracture, Closed Treatment (02/15/16) [facility] [place]Distal Rt Radius Fx H/O surgical procedure (~09/1997) a. total proctocolectomy with end ileostomy in stages b. Appendectomy c. Hernia repair d. excision of renal adenomas H/O total adrenalectomy Bilateral hernia repair (04/08/99) parastomal R/trelex mesh repair retinal breaks (12/24/03) S/P brain surgery for evacuation of a bleed- [facility] S/P ileostomy ileostomy moved from RLQ to LLQ- [facility] transsphenoidal hypophysectomy (11/15/93) Transurethral prostatectomy (11/24/14) Family History Mother , CVA Stroke Father , lung CA No problems noted. Sister , COPD No problems noted. Brother , unknown at age 29. No problems noted. Brother Diabetes ASCVD (arteriosclerotic cardiovascular disease) Brother No problems noted. Sister Diabetes Sister No problems noted. Other Arthritis Social History (Updated 05/09/20 @ 22:20 by Vamshi Bass) Smoking/Tobacco Use Status: Former Tobacco Use Smoking risk assessment performed?: Yes Alcohol Intake: current Alcohol Intake frequency: holidays/special occasions only Alcohol type: beer Drug use: Never Substance use type: does not use Do you feel safe at home: Yes Do you feel safe in your relationship?: Yes Additional Social history: Has lived at [facility] for 3 year, formerly had his own home in [facility]. Doesn't have family left in the area. Was in [employer]. Worked for 37 years at [employer] in [place].
--- NOTE | 2020-05-11 14:29 | NUR.NOTE ---
Nursing Note: 05/11/20 14:[address] [facility] several times before reaching someone via phone at [phone]. Gema, RN from [facility], took [id number] report for this patient. Gema verbalized understanding of patient's discharge instructions, follow-up appointments and lab work, and new medication prescribed to patient. Gema verbalized receipt of all discharge paperwork that was sent with patient.
[2020-05-11 21:40] LABS: COVID-19 RT-PCR UVMMC Result Negative (Negative)
--- NOTE | 2020-05-15 17:30 | PT.INDS ---
Date of service: 05/15/20 PT Notes Visit Reasons: HYPERKALEMIA Inpatient Physical Therapy Discharge Summary Date: 05/15/20 Dates of Services: 05/10/2020 only This is a clinical summary of care provided on the duration of dates listed above. No charge was made in the completion of this documentation. Referring Doctor: Vamshi Bass MD PT Orders: PT CONSULT: Fall Safety Assessment Precautions: Standard. Fall. Patient Profile/Admitting Diagnosis: Liang is a 79 yo male that presented to the ER on 05/09/20 from SNF for hyperkalemia. He is currently under observation at the hospital. In addition to medical diagnosis, he has been experiencing pain in left buttock to calf for the last three weeks. He denies numbness or tingling. Feels worse with standing, walking, laying flat supine and has been able to find some relief with right sidelying and legs draping forward over edge of bed. 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 [place]dest[place] with cryotherapy. Iron deficiency anemia (11/06/15) Lichen planus (11/06/15) Malignant neoplasm of colon (11/06/15) Obesity (11/06/15) Obstructive uropathy DEVORAH on CPAP (11/06/15) Osteopenia (11/06/15) Dexa T -2.1 femoral neck 2009 Dexa T -1.8 LS spine 2006 Osteoporosis of forearm (08/19/16) T-score -3.7 [facility] [place] Rheumatoid arthritis (11/06/15) Seizure disorder Small bowel obstruction (02/27/14) Subdural hematoma Uncomplicated asthma (11/06/15) Urinary retention UTI (urinary tract infection) Weakness Surgical History Cholecystectomy (02/15/16) [facility] [place] cystoureteroscopy,lithotrypsy (05/11/15) with L stent insertion Extraction of cataract (07/28/16) R eye surgeon Amanda Ochoa MD Fracture, Closed Treatment (02/15/16) [facility] [place]Distal Rt Radius Fx H/O surgical procedure (~09/1997) a. total proctocolectomy with end ileostomy in stages b. Appendectomy c. Hernia repair d. excision of renal adenomas H/O total adrenalectomy Bilateral hernia repair (04/08/99) parastomal R/trelex mesh repair retinal breaks (12/24/03) S/P brain surgery for evacuation of a bleed- [facility] S/P ileostomy ileostomy moved from RLQ to LLQ- [facility] [place] transsphenoidal hypophysectomy (11/15/93) Transurethral prostatectomy (11/24/14) Social History/Home Situation: Lives in [facility], ambulates with FWW. Current Functional Limitations: Decreased activity tolerances due left LE pain Equipment Owned/DME: FWW Subjective: NT. See most recent SENIOR MECHANICAL DESIGNER notes. Objective: General Observation: NT. See most recent SENIOR MECHANICAL DESIGNER notes. Mental Status: NT. See most recent SENIOR MECHANICAL DESIGNER notes. Pain: NT. See most recent SENIOR MECHANICAL DESIGNER notes. ROM: Right Upper Extremity: R UE ROM Within functional limits Left Upper Extremity: L UE ROM Within functional limits Right Lower Extremity: R LE ROM Within functional limits Left Lower Extremity: L LE ROM Within functional limits Strength: Right Upper Extremity: Grossly 5/5 R UE strength Left Upper Extremity: Grossly 5/5 L UE strength Right Lower Extremity: Grossly 5/5 R LE strength Left Lower Extremity: Grossly 5/5 L LE strength Sensation: Intact, no difference between sides in LE Bed Mobility/Transfers: Independent with bed mobility and sit<> transfers Gait: Ambulate 8 ft in room with supervision using FWW, decreased tolerance due to left LE pain Balance: Static Sitting: Normal Dynamic Sitting: Normal Static Standing: Good Dynamic Standing: Good Therapeutic Activity: Seated hamstring stretch Seated calf stretch with strap - too aggressive Seated light LAQ for nerve mobility Seated trunk rotation and sidebend for lumbar mobility - feels best with right sidebend, opening on left and with right rotation Seated hip ER stretch for left Right sidelying with modified piriformis stretch Instructed patient in nerve involvement with symptoms likely coming from spine, but nerve mobilization important to reduce symptoms Assessment: Patient is a 79 year old male referred to physical therapy services with the diagnosis of hyperkalemia and he has complaints of pain in left buttock to calf for the last three weeks. Patient presents with clinical signs and symptoms consistent with difficulty walking, decreased endurance, and decreased functional activity tolerances. Symptoms in left LE do seem to be affected by the nerve. He gets the most relief with right sidelying which opens the left side some and legs hanging over side of bed. During session the relief in this position comes quickly. He feels much worse with attempt at standing and walking. Sitting tolerated in short doses. Light left LE extension mobilization helps in short intervals as does left seated hip ER stretch. Instructed him that maintaining activity is important even if in small doses. Goals: Goals X1 week 1. Supine-Sit Independent MET 2. Sit-Supine Independent MET 3. Sit-Stand Independent MET 4. Stand-Sit Independent MET 5. Bed-Chair Independent MET 6. Chair-Bed Independent MET 7. Gait Ambulate 50ft with supervision using FWW NOT MET 8. Independent with home exercise program NOT MET DISCHARGE RECOMMENDATIONS: Return to SNF placement once medically discharged and will benefit from PT for left LE symptoms TREATMENT CODE/TIME: HI Thank you for the opportunity to participate in the care of this patient. Nery Hall PT, DPT, CLT [facility] [place], [place]
== END 2020-05-11 13:09 | disposition skilled nursing facility (03) ==
LOC: ER 20:15 → MS 05-10 18:32
PROVIDERS: Internal Medicine; Admitting Provider Family Medicine; Emergency Provider Student in an Organized Health Care Education/Training Program; PCP Family Medicine; Visit Provider Family Medicine
DX: E87.5 Hyperkalemia (principal); M54.42 Lumbago with sciatica, left side; J45.20 Mild intermittent asthma, uncomplicated; G40.909 Epilepsy, unspecified, not intractable, without status epilepticus; Z93.2 Ileostomy status; N18.32 Chronic kidney disease, stage 3b; I48.91 Unspecified atrial fibrillation; G89.29 Other chronic pain; I50.22 Chronic systolic (congestive) heart failure; J44.9 Chronic obstructive pulmonary disease, unspecified; E89.6 Postprocedural adrenocortical (-medullary) hypofunction; I13.0 Hypertensive heart and chronic kidney disease with heart failure and stage 1 through stage 4 chronic kidney disease, or unspecified chronic kidney disease; D50.9 Iron deficiency anemia, unspecified; G47.33 Obstructive sleep apnea (adult) (pediatric); Z85.038 Personal history of other malignant neoplasm of large intestine; M47.816 Spondylosis without myelopathy or radiculopathy, lumbar region; M51.36 Other intervertebral disc degeneration, lumbar region
CPT/HCPCS: 36415; 80048; 80053; 87081; 93005; 94640; 97162; 97530; 99219; 99226; 99239; 99285; U0003; 72110; 73502; 83735; 84153; 85025; 93010; 99217; G0378; J3475

== ENCOUNTER 2020-05-18 15:38 | Outpatient (REF) | payer MEDICARE, OTHER, SELFPAY ==
[2020-05-18 16:38] LABS: ALT 56 U/L (16-63); AST 57 U/L (15-37); Alkaline Phosphatase 151 U/L (46-116); Anion Gap 10.5 mmol/L (3-11); BUN 37 mg/dL (7-18); Bilirubin, Direct 0.39 mg/dL (0.00-0.20); Bilirubin, Total 1.1 mg/dL (0.2-1.0); CO2 20.5 mmol/L (21.0-32.0); CREATININE 1.8 mg/dL (0.70-1.30); Calcium 8.4 mg/dL (8.5-10.1); Chloride 105 mmol/L (98-107); Estimated GFR 36.77 (mL/min/1.73m2); Glucose 133 mg/dL (74-106); Potassium 5.2 mmol/L (3.5-5.1); Sodium 136 mmol/L (136-145); Total Protein 7.8 g/dL (6.4-8.2)
== END 2020-05-18 15:39 | disposition home or self-care (01) ==
LOC: LBN 15:38
PROVIDERS: PCP Family Medicine; Visit Provider Family Medicine
DX: E27.1 Primary adrenocortical insufficiency (principal); N18.30 Chronic kidney disease, stage 3 unspecified; E87.5 Hyperkalemia; R74.8 Abnormal levels of other serum enzymes
CPT/HCPCS: 80048; 80076

== ENCOUNTER 2020-05-20 16:13 | Outpatient (REF) | payer MEDICARE, OTHER, SELFPAY | END 2020-05-20 16:14 | disposition home or self-care (01) | LOC: LBN 16:13 | PROVIDERS: PCP Family Medicine; Visit Provider Family Medicine | DX: J02.9 Acute pharyngitis, unspecified (principal); R07.0 Pain in throat | CPT/HCPCS: 87081 ==

== ENCOUNTER 2020-05-26 01:52 | Outpatient (CLI) | payer MEDICARE, OTHER, SELFPAY ==
--- NOTE | 2020-05-26 07:00 | DI.MRI_ITS ---
EXAM: MR LUMBAR SPINE WO CLINICAL HISTORY: Low back pain, degenerative disc disease, radiculoPATHY,LUMBAGO,M54.40. TECHNIQUE: Multiplanar multisequence MRI was performed. COMPARISON: CR,XR XR LUMBAR SPINE COMPLETE from 05/10/2020 FINDINGS: MR examination lumbar spine was performed according to the usual protocol. Note is made of an old vertebral compression fracture at L1. No significant bony signal abnormality seen. Conus medullaris appears intact. No significant findings involving the spinal canal at the T12-L1, L1-2, or L2-3 levels. At L3-4, there is a moderate disc bulge. There is no evidence of a focal disc herniation or central canal spinal stenosis. There appears to be mild right-sided neural foraminal narrowing at L3-4. At L4-5, there is a moderate disc bulge. There is no focal disc herniation. There is slight bilater al neural foraminal narrowing on the right. At L5-S1, there is moderate facet hypertrophy on the right and there are endplate hypertrophic change s on the right with probable 5 associated focal disc herniation right lateral which result in narrowi ng of the lateral recess on the right and narrowing of the right neural foramen. There is probable i mpingement on right L5 nerve root and probable impingement on right S1 nerve root as well. No left-s ided findings at L5-S1. IMPRESSION: Multilevel findings as described above. The most marked severity of findings is at L5-S1 on the righ t where there are bony hypertrophic changes with a probable small disc herniation with narrowing of r ight lateral recess, right neural foramen, and probable impingement on right L5 and S1 nerve roots. DATA REPOSITORY:
== END 2020-05-26 02:12 ==
PROVIDERS: PCP Family Medicine; Visit Provider Internal Medicine
DX: M47.26 Other spondylosis with radiculopathy, lumbar region (principal)
CPT/HCPCS: 72148

== ENCOUNTER 2020-06-02 14:58 | Outpatient (REF) | payer MEDICARE, OTHER, SELFPAY ==
[2020-06-02 15:45] LABS: Abs Immature Grans 0.07 10^3/uL (0.0-0.06); Absolute Basophil Count 0.02 10^3/uL (0.0-0.2); Absolute Eosinophil Count 0.12 10^3/uL (0.0-0.7); Absolute Lymphocyte Count 1.09 10^3/uL (1.2-3.4); Absolute Monocyte Count 1.13 10^3/uL (0.1-0.8); Absolute Neutrophil Count 3.65 10^3/uL (1.2-6.7); Basophils % 0.3; HCT 35.5 % (40.0-50.0); Immature Grans % 1.2; Lymphocytes % 17.9; MCH 31.6 pg (27.0-33.0); MPV 13.1 fL (8.0-11.0); Monocytes % 18.6; Nucleated RBC 0 %; RBC 3.48 10^6/uL (4.36-5.78); RDW 16.3 % (11.8-14.1); RDW-SD 60.4 fL; WBC 6.08 10^3/uL (4.4-10.8)
[2020-06-02 16:28] LABS: Anion Gap 9.1 mmol/L (3-11); BUN 28 mg/dL (7-18); CO2 23.9 mmol/L (21.0-32.0); CREATININE 1.5 mg/dL (0.70-1.30); Calcium 8.5 mg/dL (8.5-10.1); Chloride 104 mmol/L (98-107); Estimated GFR 45.38 (mL/min/1.73m2); Glucose 102 mg/dL (74-106); Potassium 5.4 mmol/L (3.5-5.1); Sodium 137 mmol/L (136-145)
[2020-06-02 16:35] LABS: Anisocytosis 1+; Basophilic Stippling Present; Diff Comment PLT Morph Reviewed; Platelet Count 118 10^3/uL (130-400)
[2020-06-02 16:36] LABS: Macrocytosis 1+; Poikilocytes 1+; Polychromasia Present
[2020-06-02 17:04] LABS: Folate > 20.0 ng/mL (8.6-20.0); Vitamin B12 > 2000 pg/mL (193-986)
== END 2020-06-02 14:59 | disposition home or self-care (01) ==
LOC: LBN 14:58
PROVIDERS: PCP Family Medicine; Visit Provider Family Medicine
DX: E87.5 Hyperkalemia (principal); D69.3 Immune thrombocytopenic purpura; N18.32 Chronic kidney disease, stage 3b; F34.1 Dysthymic disorder
CPT/HCPCS: 80048; 82607; 82746; 85025

== ENCOUNTER 2020-06-04 13:33 | Outpatient (REF) | payer MEDICARE, OTHER, SELFPAY ==
[2020-06-04 13:49] LABS: Anion Gap 9.9 mmol/L (3-11); BUN 24 mg/dL (7-18); CO2 22.1 mmol/L (21.0-32.0); CREATININE 1.6 mg/dL (0.70-1.30); Calcium 8.7 mg/dL (8.5-10.1); Chloride 102 mmol/L (98-107); Estimated GFR 42.12 (mL/min/1.73m2); Glucose 122 mg/dL (74-106); Potassium 5.1 mmol/L (3.5-5.1); Sodium 134 mmol/L (136-145)
== END 2020-06-04 13:34 | disposition home or self-care (01) ==
LOC: NCHCN 13:33
PROVIDERS: PCP Family Medicine; Visit Provider Family Medicine
DX: E87.8 Other disorders of electrolyte and fluid balance, not elsewhere classified (principal)
CPT/HCPCS: 80048

== ENCOUNTER 2020-06-08 14:01 | Outpatient (REF) | payer MEDICARE, OTHER, SELFPAY ==
[2020-06-08 14:28] LABS: ALT 39 U/L (16-63); AST 38 U/L (15-37); Albumin 3.9 g/dL (3.4-5.0); Alkaline Phosphatase 136 U/L (46-116); BUN 29 mg/dL (7-18); Bilirubin, Direct 0.3 mg/dL (0.0-0.2); Bilirubin, Total 0.7 mg/dL (0.2-1.0); CREATININE 1.6 mg/dL (0.70-1.30); Calcium 8.9 mg/dL (8.5-10.1); Chloride 103 mmol/L (98-107); Estimated GFR 42.12 (mL/min/1.73m2); Glucose 105 mg/dL (74-106); Sodium 137 mmol/L (136-145); Total Protein 7.9 g/dL (6.4-8.2)
== END 2020-06-08 14:02 | disposition home or self-care (01) ==
LOC: LBN 14:01
PROVIDERS: PCP Family Medicine; Visit Provider Family Medicine
DX: R74.8 Abnormal levels of other serum enzymes (principal); E87.5 Hyperkalemia; E87.8 Other disorders of electrolyte and fluid balance, not elsewhere classified; N18.30 Chronic kidney disease, stage 3 unspecified; E27.1 Primary adrenocortical insufficiency
CPT/HCPCS: 80048; 80076

== ENCOUNTER 2020-06-18 00:53 | Outpatient (REF) | payer MEDICARE, OTHER, SELFPAY ==
[2020-06-18 21:46] LABS: Anion Gap 9.9 mmol/L (3-11); BUN 18 mg/dL (7-18); CO2 24.1 mmol/L (21.0-32.0); CREATININE 1.6 mg/dL (0.70-1.30); Calcium 8.2 mg/dL (8.5-10.1); Chloride 107 mmol/L (98-107); Estimated GFR 42.12 (mL/min/1.73m2); Glucose 109 mg/dL (74-106); Potassium 5.2 mmol/L (3.5-5.1); Sodium 141 mmol/L (136-145)
== END 2020-06-18 00:54 | disposition home or self-care (01) ==
LOC: LBN 00:53
PROVIDERS: PCP Family Medicine; Visit Provider Family Medicine
DX: E87.5 Hyperkalemia (principal); N18.32 Chronic kidney disease, stage 3b
CPT/HCPCS: 80048

== ENCOUNTER 2020-06-19 18:07 | Outpatient (REF) | payer MEDICARE, OTHER, SELFPAY ==
[2020-06-19 15:53] LABS: Anion Gap 11.2 mmol/L (3-11); BUN 20 mg/dL (7-18); CO2 21.8 mmol/L (21.0-32.0); CREATININE 1.6 mg/dL (0.70-1.30); Calcium 8.3 mg/dL (8.5-10.1); Chloride 106 mmol/L (98-107); Estimated GFR 42.12 (mL/min/1.73m2); Glucose 96 mg/dL (74-106); Potassium 5.1 mmol/L (3.5-5.1); Sodium 139 mmol/L (136-145)
== END 2020-06-19 18:08 | disposition home or self-care (01) ==
LOC: LBN 18:07
PROVIDERS: PCP Family Medicine; Visit Provider Family Medicine
DX: E87.5 Hyperkalemia (principal)
CPT/HCPCS: 80048

== ENCOUNTER 2020-06-22 15:26 | Outpatient (REF) | payer MEDICARE, OTHER, SELFPAY ==
[2020-06-22 16:20] LABS: Anion Gap 9.4 mmol/L (3-11); BUN 17 mg/dL (7-18); CO2 23.6 mmol/L (21.0-32.0); CREATININE 1.7 mg/dL (0.70-1.30); Chloride 107 mmol/L (98-107); Estimated GFR 39.28 (mL/min/1.73m2); Glucose 152 mg/dL (74-106); Potassium 4.7 mmol/L (3.5-5.1); Sodium 140 mmol/L (136-145)
== END 2020-06-22 15:27 | disposition home or self-care (01) ==
LOC: LBN 15:26
PROVIDERS: PCP Family Medicine; Visit Provider Family Medicine
DX: N18.9 Chronic kidney disease, unspecified (principal); E87.8 Other disorders of electrolyte and fluid balance, not elsewhere classified; E27.1 Primary adrenocortical insufficiency
CPT/HCPCS: 80048

== ENCOUNTER 2020-07-01 16:58 | Outpatient (REF) | payer MEDICARE, OTHER, SELFPAY ==
[2020-07-01 17:46] LABS: Abs Immature Grans 0.22 10^3/uL (0.0-0.06); Absolute Basophil Count 0.03 10^3/uL (0.0-0.2); Absolute Eosinophil Count 0.16 10^3/uL (0.0-0.7); Absolute Lymphocyte Count 0.99 10^3/uL (1.2-3.4); Absolute Monocyte Count 1.77 10^3/uL (0.1-0.8); Absolute Neutrophil Count 6.04 10^3/uL (1.2-6.7); Basophils % 0.3; Eosinophils % 1.7; HCT 37.8 % (40.0-50.0); HGB 11.2 g/dL (13.5-17.5); Immature Grans % 2.4; Lymphocytes % 10.7; MCH 31.5 pg (27.0-33.0); MCHC 29.6 % (32.0-36.0); MCV 106.2 fL (80-95); MPV 13.8 fL (8.0-11.0); Monocytes % 19.2; Neutrophils % 65.7; Nucleated RBC 0 %; RBC 3.56 10^6/uL (4.36-5.78); RDW 16.9 % (11.8-14.1); RDW-SD 65.2 fL; WBC 9.21 10^3/uL (4.4-10.8)
[2020-07-01 18:41] LABS: Platelet Count 83 10^3/uL (130-400)
[2020-07-01 18:42] LABS: Diff Comment Agrees w/ Instrument; Hypochromasia 1+; Macrocytosis 2+
[2020-07-01 18:44] LABS: Anion Gap 8.9 mmol/L (3-11); BUN 16 mg/dL (7-18); CO2 25.1 mmol/L (21.0-32.0); CREATININE 1.4 mg/dL (0.70-1.30); Calcium 8.2 mg/dL (8.5-10.1); Chloride 106 mmol/L (98-107); Estimated GFR 49.14 (mL/min/1.73m2); Glucose 96 mg/dL (74-106); Potassium 4.2 mmol/L (3.5-5.1); Sodium 140 mmol/L (136-145)
== END 2020-07-01 16:59 | disposition home or self-care (01) ==
LOC: NCHCN 16:58
PROVIDERS: PCP Family Medicine; Visit Provider Family Medicine
DX: E87.5 Hyperkalemia (principal); N18.32 Chronic kidney disease, stage 3b; E87.8 Other disorders of electrolyte and fluid balance, not elsewhere classified
CPT/HCPCS: 80048; 85025

== ENCOUNTER 2020-07-14 23:34 | Outpatient (REF) | payer MEDICARE, OTHER, SELFPAY ==
[2020-07-14 18:27] LABS: Abs Immature Grans 0.09 10^3/uL (0.0-0.06); Absolute Basophil Count 0.02 10^3/uL (0.0-0.2); Absolute Eosinophil Count 0.11 10^3/uL (0.0-0.7); Absolute Lymphocyte Count 0.82 10^3/uL (1.2-3.4); Absolute Monocyte Count 1.34 10^3/uL (0.1-0.8); Absolute Neutrophil Count 3.46 10^3/uL (1.2-6.7); Basophils % 0.3; Eosinophils % 1.9; HCT 36.4 % (40.0-50.0); HGB 10.9 g/dL (13.5-17.5); Immature Grans % 1.5; MCH 31.9 pg (27.0-33.0); MCHC 29.9 % (32.0-36.0); MCV 106.4 fL (80-95); MPV 12.9 fL (8.0-11.0); Monocytes % 22.9; Neutrophils % 59.4; Nucleated RBC 0 %; RBC 3.42 10^6/uL (4.36-5.78); RDW 16.6 % (11.8-14.1); RDW-SD 63.9 fL; WBC 5.84 10^3/uL (4.4-10.8)
[2020-07-14 18:30] LABS: Anion Gap 8.2 mmol/L (3-11); BUN 16 mg/dL (7-18); CO2 29.8 mmol/L (21.0-32.0); CREATININE 1.3 mg/dL (0.70-1.30); Calcium 8.2 mg/dL (8.5-10.1); Chloride 108 mmol/L (98-107); Estimated GFR 53.53 (mL/min/1.73m2); Glucose 115 mg/dL (74-106); Potassium 3.8 mmol/L (3.5-5.1); Sodium 146 mmol/L (136-145)
[2020-07-14 19:43] LABS: Diff Comment RBC Morph Reviewed; Macrocytosis 3+; Platelet Count 61 10^3/uL (130-400)
== END 2020-07-14 23:35 | disposition home or self-care (01) ==
LOC: LBN 23:34
PROVIDERS: PCP Family Medicine; Visit Provider Family Medicine
DX: N18.32 Chronic kidney disease, stage 3b (principal); D69.3 Immune thrombocytopenic purpura; E87.5 Hyperkalemia; F34.1 Dysthymic disorder
CPT/HCPCS: 80048; 85025

== ENCOUNTER 2020-08-05 12:22 | Outpatient (REF) | payer MEDICARE, OTHER, SELFPAY ==
[2020-08-05 13:17] LABS: Bilirubin Negative (Negative); Blood Large (Negative); Clarity Sl Cloudy (Clear); Glucose Negative (Negative); Ketones Negative (Negative); Leukocyte Esterase Moderate (Negative); Nitrite Negative (Negative); Specific Gravity 1.025 (1.005-1.025)
[2020-08-05 13:31] LABS: WBC >50 HPF (0-5)
[2020-08-05 13:32] LABS: Bacteria Few HPF (Negative); C & S Indicated? Yes; Casts Negative LPF (Negative); Crystals Negative HPF (Negative); Epithelial Cells Few HPF (Negative); Mucus Trace (Negative); RBC 20-50 HPF (0-2)
== END 2020-08-05 12:23 | disposition home or self-care (01) ==
LOC: LBN 12:22
PROVIDERS: PCP Family Medicine; Visit Provider Family Medicine
DX: R31.9 Hematuria, unspecified (principal); R82.998 Other abnormal findings in urine
CPT/HCPCS: 81003; 81015; 87086

== ENCOUNTER 2020-08-13 20:21 | Outpatient (REF) | payer MEDICARE, OTHER, SELFPAY ==
[2020-08-13 16:25] LABS: ALT 29 U/L (16-63); AST 30 U/L (15-37); Albumin 3.6 g/dL (3.4-5.0); Alkaline Phosphatase 124 U/L (46-116); Anion Gap 7.6 mmol/L (3-11); BUN 15 mg/dL (7-18); Bilirubin, Direct 0.2 mg/dL (0.0-0.2); Bilirubin, Total 0.5 mg/dL (0.2-1.0); CO2 26.4 mmol/L (21.0-32.0); CREATININE 1.6 mg/dL (0.70-1.30); Calcium 7.9 mg/dL (8.5-10.1); Chloride 108 mmol/L (98-107); Estimated GFR 42.12 (mL/min/1.73m2); Glucose 125 mg/dL (74-106); Potassium 4.8 mmol/L (3.5-5.1); Sodium 142 mmol/L (136-145); Total Protein 6.7 g/dL (6.4-8.2)
== END 2020-08-13 20:22 | disposition home or self-care (01) ==
LOC: LBN 20:21
PROVIDERS: PCP Family Medicine; Visit Provider Family Medicine
DX: D69.3 Immune thrombocytopenic purpura (principal); N18.32 Chronic kidney disease, stage 3b; E27.1 Primary adrenocortical insufficiency; E66.9 Obesity, unspecified
CPT/HCPCS: 80048; 80076

== ENCOUNTER 2020-08-18 18:26 | Outpatient (REF) | payer MEDICARE, OTHER, SELFPAY ==
[2020-08-18 19:59] LABS: ALT 29 U/L (16-63); AST 33 U/L (15-37); Albumin 4.1 g/dL (3.4-5.0); Alkaline Phosphatase 115 U/L (46-116); Anion Gap 12.5 mmol/L (3-11); BUN 18 mg/dL (7-18); Bilirubin, Direct 0.2 mg/dL (0.0-0.2); Bilirubin, Total 0.8 mg/dL (0.2-1.0); CO2 23.5 mmol/L (21.0-32.0); CREATININE 1.4 mg/dL (0.70-1.30); Calcium 8.2 mg/dL (8.5-10.1); Chloride 107 mmol/L (98-107); Estimated GFR 49.14 (mL/min/1.73m2); Glucose 112 mg/dL (74-106); Potassium 4.1 mmol/L (3.5-5.1); Sodium 143 mmol/L (136-145); Total Protein 7.5 g/dL (6.4-8.2)
[2020-08-18 20:46] LABS: Vitamin B12 992 pg/mL (193-986)
[2020-08-20 04:32] LABS: Vitamin D 25 Total 36.2 ng/mL (30-100)
[2020-08-20 12:23] LABS: Parathyroid Hormone,Intact 142 pg/mL (19-88)
== END 2020-08-18 18:27 | disposition home or self-care (01) ==
LOC: LBN 18:26
PROVIDERS: PCP Family Medicine; Visit Provider Family Medicine
DX: N18.32 Chronic kidney disease, stage 3b (principal); E27.1 Primary adrenocortical insufficiency; E66.9 Obesity, unspecified; D69.3 Immune thrombocytopenic purpura; Z79.899 Other long term (current) drug therapy
CPT/HCPCS: 80048; 80076; 82306; 82607; 83970; 85610

== ENCOUNTER 2020-08-24 15:56 | Outpatient (REF) | payer MEDICARE, OTHER, SELFPAY ==
[2020-08-24 16:35] LABS: Abs Immature Grans 0.04 10^3/uL (0.0-0.06); Absolute Basophil Count 0.01 10^3/uL (0.0-0.2); Absolute Eosinophil Count 0.09 10^3/uL (0.0-0.7); Absolute Lymphocyte Count 0.56 10^3/uL (1.2-3.4); Absolute Monocyte Count 0.75 10^3/uL (0.1-0.8); Absolute Neutrophil Count 4.18 10^3/uL (1.2-6.7); Basophils % 0.2; Eosinophils % 1.6; HCT 34.4 % (40.0-50.0); HGB 10.5 g/dL (13.5-17.5); Immature Grans % 0.7; Lymphocytes % 9.9; MCH 30.7 pg (27.0-33.0); MCHC 30.5 % (32.0-36.0); MCV 100.6 fL (80-95); MPV 12.7 fL (8.0-11.0); Monocytes % 13.3; Neutrophils % 74.3; Nucleated RBC 0 %; Platelet Count 58 10^3/uL (130-400); RBC 3.42 10^6/uL (4.36-5.78); RDW 16.5 % (11.8-14.1); RDW-SD 59.7 fL; WBC 5.63 10^3/uL (4.4-10.8)
[2020-08-24 16:59] LABS: Anion Gap 11.3 mmol/L (3-11); BUN 16 mg/dL (7-18); CO2 26.7 mmol/L (21.0-32.0); CREATININE 1.6 mg/dL (0.70-1.30); Calcium 8.5 mg/dL (8.5-10.1); Chloride 107 mmol/L (98-107); Estimated GFR 42.12 (mL/min/1.73m2); Glucose 116 mg/dL (74-106); Potassium 4.4 mmol/L (3.5-5.1); Sodium 145 mmol/L (136-145)
[2020-08-24 17:20] LABS: Diff Comment Diff Reviewed; RBC Morphology Normal
== END 2020-08-24 15:57 | disposition home or self-care (01) ==
LOC: LBN 15:56
PROVIDERS: PCP Family Medicine; Visit Provider Family Medicine
DX: D69.3 Immune thrombocytopenic purpura (principal); N18.32 Chronic kidney disease, stage 3b; E27.1 Primary adrenocortical insufficiency; E66.9 Obesity, unspecified
CPT/HCPCS: 80048; 85025

== ENCOUNTER 2020-08-28 19:08 | Outpatient (REF) | payer MEDICARE, OTHER, SELFPAY ==
[2020-08-28 19:25] LABS: Anion Gap 5.7 mmol/L (3-11); BUN 19 mg/dL (7-18); CO2 30.3 mmol/L (21.0-32.0); CREATININE 1.4 mg/dL (0.70-1.30); Chloride 109 mmol/L (98-107); Estimated GFR 49.14 (mL/min/1.73m2); Glucose 100 mg/dL (74-106); Sodium 145 mmol/L (136-145)
[2020-08-28 19:31] LABS: Abs Immature Grans 0.09 10^3/uL (0.0-0.06); Absolute Basophil Count 0.02 10^3/uL (0.0-0.2); Absolute Eosinophil Count 0.12 10^3/uL (0.0-0.7); Absolute Lymphocyte Count 0.85 10^3/uL (1.2-3.4); Absolute Monocyte Count 1.97 10^3/uL (0.1-0.8); Absolute Neutrophil Count 4.95 10^3/uL (1.2-6.7); Basophils % 0.3; Eosinophils % 1.5; HCT 34.1 % (40.0-50.0); HGB 10.2 g/dL (13.5-17.5); Immature Grans % 1.1; Lymphocytes % 10.6; MCH 30.7 pg (27.0-33.0); MCHC 29.9 % (32.0-36.0); MCV 102.7 fL (80-95); Monocytes % 24.6; Neutrophils % 61.9; Nucleated RBC 0 %; RBC 3.32 10^6/uL (4.36-5.78); RDW 16.9 % (11.8-14.1); RDW-SD 63.6 fL
[2020-08-28 19:55] LABS: Anisocytosis 1+; Diff Comment Agrees w/ Instrument; Platelet Count 72 10^3/uL (130-400); Polychromasia Present
[2020-08-28 19:57] LABS: Hypochromasia 1+
== END 2020-08-28 19:09 | disposition home or self-care (01) ==
LOC: LBN 19:08
PROVIDERS: PCP Family Medicine; Visit Provider Family Medicine
DX: D69.3 Immune thrombocytopenic purpura (principal); E27.1 Primary adrenocortical insufficiency; N18.32 Chronic kidney disease, stage 3b; E66.9 Obesity, unspecified
CPT/HCPCS: 80048; 85025

== ENCOUNTER 2020-10-05 14:46 | Outpatient (REF) | payer MEDICARE, OTHER, SELFPAY ==
[2020-10-05 17:05] LABS: Abs Immature Grans 0.07 10^3/uL (0.0-0.06); Absolute Basophil Count 0.01 10^3/uL (0.0-0.2); Absolute Eosinophil Count 0.07 10^3/uL (0.0-0.7); Absolute Lymphocyte Count 0.51 10^3/uL (1.2-3.4); Absolute Monocyte Count 0.71 10^3/uL (0.1-0.8); Absolute Neutrophil Count 4.59 10^3/uL (1.2-6.7); Basophils % 0.2; Eosinophils % 1.2; HCT 32.9 % (40.0-50.0); HGB 9.6 g/dL (13.5-17.5); Immature Grans % 1.2; Lymphocytes % 8.6; MCH 28.9 pg (27.0-33.0); MCHC 29.2 % (32.0-36.0); MCV 99.1 fL (80-95); MPV 12.5 fL (8.0-11.0); Monocytes % 11.9; Neutrophils % 76.9; Nucleated RBC 0 %; RBC 3.32 10^6/uL (4.36-5.78); RDW 17.2 % (11.8-14.1); RDW-SD 61.3 fL; WBC 5.96 10^3/uL (4.4-10.8)
[2020-10-05 17:09] LABS: Platelet Count 78 10^3/uL (130-400)
[2020-10-05 18:04] LABS: ALT 31 U/L (16-63); AST 32 U/L (15-37); Albumin 3.6 g/dL (3.4-5.0); Alkaline Phosphatase 151 U/L (46-116); Anion Gap 11.7 mmol/L (3-11); BUN 20 mg/dL (7-18); Bilirubin, Total 0.4 mg/dL (0.2-1.0); CO2 25.3 mmol/L (21.0-32.0); CREATININE 1.9 mg/dL (0.70-1.30); Calcium 8.7 mg/dL (8.5-10.1); Chloride 105 mmol/L (98-107); Estimated GFR 34.46 (mL/min/1.73m2); Glucose 121 mg/dL (74-106); Potassium 5.1 mmol/L (3.5-5.1); Sodium 142 mmol/L (136-145); Total Protein 6.7 g/dL (6.4-8.2); Vitamin B12 1357 pg/mL (193-986)
[2020-10-05 18:05] LABS: Folate > 20.0 ng/mL (8.6-20.0)
== END 2020-10-05 14:47 | disposition home or self-care (01) ==
LOC: LBN 14:46
PROVIDERS: PCP Family Medicine; Visit Provider Nurse Practitioner Gerontology
DX: E87.5 Hyperkalemia (principal); D69.3 Immune thrombocytopenic purpura; N18.32 Chronic kidney disease, stage 3b; R53.1 Weakness; Z79.899 Other long term (current) drug therapy
CPT/HCPCS: 80053; 82306; 82607; 82746; 85025

== ENCOUNTER 2020-10-08 14:21 | Outpatient (REF) | payer MEDICARE, OTHER, SELFPAY ==
[2020-10-08 18:29] LABS: Anion Gap 9.1 mmol/L (3-11); BUN 20 mg/dL (7-18); CO2 25.9 mmol/L (21.0-32.0); CREATININE 1.7 mg/dL (0.70-1.30); Calcium 8.8 mg/dL (8.5-10.1); Chloride 110 mmol/L (98-107); Estimated GFR 39.18 (mL/min/1.73m2); Glucose 110 mg/dL (74-106); Potassium 4.1 mmol/L (3.5-5.1); Sodium 145 mmol/L (136-145)
== END 2020-10-08 14:22 | disposition home or self-care (01) ==
LOC: LBN 14:21
PROVIDERS: PCP Family Medicine; Visit Provider Nurse Practitioner Gerontology
DX: E87.8 Other disorders of electrolyte and fluid balance, not elsewhere classified (principal); N18.32 Chronic kidney disease, stage 3b; D69.3 Immune thrombocytopenic purpura
CPT/HCPCS: 80048

== ENCOUNTER 2020-10-14 02:43 | Outpatient (RCR) | payer MEDICARE, OTHER, SELFPAY ==
[2020-10-14] MEDS: Denosumab 60 MG/ML SYR SC (10:45)
== END 2020-10-24 23:59 | disposition home or self-care (01) ==
LOC: INF 02:43
PROVIDERS: PCP Family Medicine; Visit Provider Family Medicine
DX: M81.0 Age-related osteoporosis without current pathological fracture (principal)
CPT/HCPCS: 96372; J0897

== ENCOUNTER 2020-10-20 11:35 | Inpatient (IN) | payer MEDICARE, OTHER, SELFPAY ==
[2020-10-20] VITALS (25 sets, daily range): BP systolic 107–152; BP diastolic 56–79; PULSE 83–118; RESP 18–21; TEMP 36.6–37.2; O2SAT 91–99
--- NOTE | 2020-10-20 12:00 | RT.EKG_ITS ---
APPROVED REPORT Exam: Resting ECG Reason for Exam: abdominal pain Patient Location: E HR:99 bpm ECG Measurements Heart Rate 99 AXIS WV 215 P 72 QRSd 82 QRS -43 QT 343 T 75 QTc 440 Conclusion Sinus rhythm...normal P axis, V-rate 60- 99 Prolonged WV interval...WV >215, V-rate 91-120 Left anterior fascicular block...axis(240,-40), init forces inf. No STEMI. I have reviewed and interpreted ECG and agree with software generated interpretation. ST elevation, consider inferior injury...ST >0.08mV, II III aVF
--- NOTE | 2020-10-20 12:00 | DI.CT_ITS ---
Exam(s) CT ABDOMEN PELVIS W EXAM: CT ABDOMEN PELVIS W CLINICAL HISTORY: hx of colostomy, decreased stool, abdominal disten TECHNIQUE: Imaging Protocol: Axial computed tomography images with coronal and sagittal reformatted images were created and reviewed CONTRAST MATERIAL: Intravenous: Omnipaque 350 Contrast volume:100 mL Oral: No COMPARISON: CT CT ABDOMEN PELVIS W from 01/12/2020 FINDINGS: ABDOMEN: Lung Bases: Dependent atelectasis. Liver: Normal density. No measurable mass. Portal, Superior Mesenteric, and Splenic Veins: Unremarkable. Gallbladder and Biliary Tract: Status post cholecystectomy. No biliary ductal dilatation. Pancreas: Normal density, no abnormal calcifications or inflammatory process. Spleen: Normal. Adrenals: No masses seen. Kidneys: Partially duplicated right renal collecting system. 1.1 cm nonobstructing stone in the midp ole of the right kidney. 2 mm nonobstructing stones in the left kidney. Bilateral simple renal cyst s. No follow-up is recommended. Abdominal Aorta: Abdominal portion non-dilated. Moderate atherosclerosis. Bowel: There is a left lower quadrant ostomy. The patient is status post colectomy. There again see n dilated loops of proximal small bowel within the central abdomen and dilatation of the stomach. Th e distal small bowel is of normal caliber. The transition appears to lie in the right abdomen. This has a similar appearance compared to the prior examination. The possibility of a small bowel obstru ction should be considered. No bowel wall thickening is seen. Peritoneal Cavity: No ascites, collection or mesenteric inflammatory response. No free air. Lymph Nodes: Within normal limits. Bones: Old compression deformities of T12 and L1 are noted. Multilevel degenerative changes are seen throughout the visualized thoracic and lumbar spine. Soft Tissues: There is a left lower quadrant ostomy. PELVIS: Bladder: Symmetric distention, no gross wall thickening. Reproductive Organs: Status post prostatectomy. Lymph Nodes: Within normal limits. Bones: Within normal limits for the patient's age. IMPRESSION: 1. Findings suspicious for small bowel obstruction. No obstructing lesion is identified. Adhesions should be considered. 2. Status post colectomy with left lower quadrant ostomy. 3. Bilateral nephrolithiasis. No hydronephrosis. 4. Results of this exam have been verbally communicated with provider. RADIATION DOSE DELIVERED: 1,379.74mGy.cm Total DLP DATA REPOSITORY: All CT scans at this facility are submitted to the National Radiology Data Registry (NRDR) Dose Index Registry (DIR) with the [employer] [place] [employer] (A[employer]). RADIATION OPTIMIZATION: All CT scans at this facility use at least one of these dose optimization te chniques: automated exposure control; mA and/or kV adjustment per patient size (includes targeted exa ms where dose is matched to clinical indication); or iterative reconstruction.
--- NOTE | 2020-10-20 12:07 | ED.GENADUL_ITS ---
Discharge Plan Discharge Details Chief Complaint: Abd Prob Admit Date/Time: 10/20/20 15:07 Admit Provider: Kathy Luciano Attending Provider: Kathy Luciano Primary Care Provider: Mitra Champion ED Provider: Genia Villela Discharge Data Discharge Date/Time-TO BE ENTERED AT DEPARTURE: 10/20/20 16:21 Medical Decision Making Patient has a colostomy in place, there is some greenish-brown liquid in the colostomy bag Hyperactive bowel sounds noted, tympanic abdomen Alert and oriented, pleasant Diagnostic labs are similar to prior, anemia noted, actually improved from prior evaluation Discussed CT findings of small bowel obstruction with radiologist, Dr. Villaseñor Chest x-ray does not show acute abnormality per radiology interpretation Patient did have an episode of nausea and subsequent vomiting in the emergency room, he was noted to be hypoxic thereafter, he desatted to 80% on room air and was placed on oxygen, 1 L and is resting comfortably with an oxygen saturation of 97% His chest x-ray does not show evidence of aspiration pneumonia, could be multifactorial, secondary to vomiting and fentanyl administration Although patient is alert and oriented He is agreeable to NG tube placement, pending consultation with Dr. Luciano, surgery DNR per pt Medical Records Medical records reviewed: Yes I reviewed the patient's medical records. Lab Data Lab results reviewed: Yes I reviewed the patient's lab results. HPI General Mode of arrival: ambulatory . Date/Time Provider Initiated Documentation: 10/20/20 12:04 . Limitations to Documentation: no limitations . Information obtained by: patient . HPI Narrative: This 80-year-old gentleman with past medical history of Arthur's disease, ulcerative colitis, colon cancer, bowel obstruction presents with report of limited bowel movement for the past several days. Denies any fever or chills. Initially denies any nausea or vomiting. Denies any chest pain or shortness of breath. Denies any dysuria or frequency. Denies any blood in stool. States has had similar symptoms in the past with a bowel blockage . Passed a small amount of loose stool this morning. Reportedly. Patient describes a pressure sensation in his abdomen with pain intermittently and some distention. Related Data Home Medications Medication Instructions Recorded Confirmed epinephrine 0.3 mg SUB-Q PRN PRN 10/07/14 10/20/20 folic acid 1 mg PO DAILY 10/24/16 10/20/20 montelukast 10 mg PO DAILY #90 tab-cap 01/03/17 10/20/20 BD Regular [place]vel [place] #12 ea 11/16/17 12/26/18 budesonide-formoterol HFA 160 1 puff INHALATION BID #3 canister 02/07/18 10/20/20 mcg-4.5 mcg/actuation aerosol inhaler cyanocobalamin (vitamin B-12) 1,000 mcg IM .Q 60 DAYS 07/30/18 10/20/20 fluticasone propionate 2 spray NS HS 07/30/18 10/20/20 hydrocortisone 5 mg PO BID@0800,1700 07/30/18 10/20/20 hydrocortisone 20 mg PO DAILY 07/30/18 10/20/20 ondansetron HCl 4 mg PO .Q6H, PRN 07/30/18 10/20/20 mirtazapine 3.75 mg PO .QHS 01/02/19 05/09/20 multivitamin,tx-minerals 1 tab PO DAILY 01/02/19 10/20/20 ergocalciferol (vitamin D2) 50,000 unit PO QMONTH 01/12/20 10/20/20 methotrexate sodium 10 mg PO QWEEK 01/12/20 10/20/20 pantoprazole 40 mg PO DAILY 01/12/20 10/20/20 [facility] Fiber 3.4 pwd PO TID #340 g 01/14/20 10/20/20 loperamide [Imodium A-D] 2 mg PO QID PRN #0 tab 01/14/20 05/09/20 Vimpat 100 mg PO BID 05/09/20 10/20/20 hydrocodone-acetaminophen 1 tab PO Q6H PRN 05/09/20 05/09/20 fludrocortisone 0.2 mg PO DAILY #90 tab-cap 05/11/20 10/20/20 acetaminophen 325 mg PO DIRECTED PRN 06/24/20 06/24/20 cetirizine 10 mg PO DAILY 06/24/20 10/20/20 denosumab [Prolia] 60 mg SUBCUT ONCE 06/24/20 10/20/20 diclofenac sodium 4 g TOPICAL QID 06/24/20 06/24/20 gabapentin 200 mg PO TID 06/24/20 10/20/20 Previous Rx's Medication Instructions Recorded montelukast 10 mg PO DAILY #90 tab-cap 01/03/17 BD Regular [place]vel [place] #12 ea 11/16/17 budesonide-formoterol HFA 160 1 puff INHALATION BID #3 canister 02/07/18 mcg-4.5 mcg/actuation aerosol inhaler [facility] Fiber 3.4 pwd PO TID #340 g 01/14/20 loperamide [Imodium A-D] 2 mg PO QID PRN #0 tab 01/14/20 fludrocortisone 0.2 mg PO DAILY #90 tab-cap 05/11/20 Allergies Allergy/AdvReac Type Severity Reaction Status Date / Time latex Allergy Intermediate rash, Verified 10/20/20 12:33 itching plasma protein fraction Allergy Intermediate Hives Verified 10/20/20 12:33 acebutolol Allergy Unknown Verified 10/20/20 12:33 promethazine Allergy Unknown Verified 10/20/20 12:33 pseudoephedrine Allergy Unknown Verified 10/20/20 12:33 terazosin Allergy Unknown Verified 10/20/20 12:33 tramadol HCl [From Ultracet] Allergy Unknown Verified 10/20/20 12:33 ceftriaxone Allergy Unverified 10/20/20 12:33 chlorpheniramine Allergy Unverified 10/20/20 12:33 venom-honey bee Allergy Verified 10/20/20 12:33 [bee venom (honey bee)] ferrous sulfate AdvReac Severe Stomach Verified 10/20/20 12:33 aches tamsulosin HCl [From Flomax] AdvReac Severe Dizziness/L Verified 10/20/20 12:33 ightheade Antihistamines - Alkylamine AdvReac Unknown affected Verified 10/20/20 12:33 prostate cefuroxime AdvReac Unknown daark urine Verified 10/20/20 12:33 plasma human Allergy Intermediate Hives Uncoded 10/20/20 12:33 General Stated Complaint: Abd Prob SANTOSH: 3 Review of Systems All systems reviewed & are unremarkable except as noted in HPI and below PFSH Medical History Abdominal adhesions (11/06/15) 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 Allergic rhinitis (11/06/15) Ankylosing spondylitis Asthma Atrial fibrillation (11/06/15) Cholecystitis, acute with cholelithiasis Cholelithiasis Cholestatic jaundice Chronic back pain Chronic deep vein thrombosis (DVT) of lower extremity (11/06/15) Chronic systolic CHF (congestive heart failure) (11/06/15) CKD (chronic kidney disease) stage 3, GFR 30-59 ml/min (11/06/15) COPD (chronic obstructive pulmonary disease) Current use of fpc anticoagulation (11/06/15) 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 Iron deficiency anemia (11/06/15) Lichen planus (11/06/15) Malignant neoplasm of colon (11/06/15) Obesity (11/06/15) Obstructive uropathy DEVORAH on CPAP (11/06/15) Osteopenia (11/06/15) Dexa T -2.1 femoral neck 2009 Dexa T -1.8 LS spine 2006 Osteoporosis of forearm (08/19/16) T-score -3.7 [facility] [place] Rheumatoid arthritis (11/06/15) Seizure disorder Small bowel obstruction (02/27/14) Subdural hematoma Uncomplicated asthma (11/06/15) Urinary retention UTI (urinary tract infection) Weakness Surgical History Cholecystectomy (02/15/16) [facility] [place] cystoureteroscopy,lithotrypsy (05/11/15) with L stent insertion Extraction of cataract (07/28/16) R eye surgeon Amanda Ochoa MD Fracture, Closed Treatment (02/15/16) [facility] [place]--Distal Rt Radius Fx H/O hemicolectomy H/O surgical procedure (~09/1997) a. total proctocolectomy with end ileostomy in stages b. Appendectomy c. Hernia repair d. excision of renal adenomas H/O total adrenalectomy Bilateral hernia repair (04/08/99) parastomal R/trelex mesh History of appendectomy Hx of heart surgery ablation after mapping [facility] [place] (2014) repair retinal breaks (12/24/03) S/P brain surgery for evacuation of a bleed- UV S/P ileostomy ileostomy moved from [facility] to [facility] [place] S/P TURP transsphenoidal hypophysectomy (11/15/93) Transurethral prostatectomy (11/24/14) Family History Mother , CVA Stroke Father , lung CA No problems noted. Sister , COPD No problems noted. Brother , unknown at age 29. No problems noted. Brother Diabetes ASCVD (arteriosclerotic cardiovascular disease) Brother No problems noted. Sister Diabetes Sister No problems noted. Other Arthritis Social History Smoking/Tobacco Use Status: Former Tobacco Use Smoking risk assessment performed?: Yes Alcohol Intake: current Alcohol Intake frequency: a few times a week Alcohol type: beer Drug use: Never Substance use type: does not use Household members: none Housing: shelter current occupation: Retired What type of physical activity do you participate in: walking Do you feel safe at home: Yes Do you feel safe in your relationship?: Yes Exam Const General: cooperative, no acute distress and frail appearing [facility] Head: normal to inspection Mouth: oral mucosae normal Other: moist mucous membranes Resp Effort & Inspection: normal respiratory effort and able to speak in complete sentences Cardio Rate: regular rate Rhythm: regular rhythm GI Other: Colostomy in place, no drainage noted, tympanic abdomen, diffusely tender without rebound or guarding Skin General skin exam: no rashes or lesions noted Neuro General: patient alert and patient oriented x3 Extrem Other: No peripheral edema, distal pulses intact Psych Appearance: grossly normal Course Vital Signs Vital signs: Vital Signs Temperature 36.7 C 10/20/20 11:42 Pulse 83 10/20/20 11:42 Respiratory Rate 20 10/20/20 11:42 Blood Pressure 147/62 H 10/20/20 11:42 Pulse Oximetry 98 10/20/20 11:42 Temperature 36.7 C 10/20/20 11:42 Temperature Source Skin 10/20/20 11:42 Pulse 83 10/20/20 11:42 Respiratory Rate 20 10/20/20 11:42 Respiratory Effort 10/20/20 11:57 Blood Pressure 147/62 H 10/20/20 11:42 Blood Pressure Position Supine 10/20/20 11:42 Pulse Oximetry 98 10/20/20 11:42 Oxygen Delivery Method Room Air 10/20/20 11:42 Oxygen Flow Rate 0 10/20/20 11:42 Pain Level 7 10/20/20 11:57
[2020-10-20 12:17] LABS: Abs Immature Grans 0.07 10^3/uL (0.0-0.06); Absolute Basophil Count 0.03 10^3/uL (0.0-0.2); Absolute Eosinophil Count 0.07 10^3/uL (0.0-0.7); Absolute Monocyte Count 1.36 10^3/uL (0.1-0.8); Absolute Neutrophil Count 5.75 10^3/uL (1.2-6.7); Basophils % 0.4; Eosinophils % 0.9; HCT 35.6 % (40.0-50.0); HGB 10.7 g/dL (13.5-17.5); Immature Grans % 0.9; Lymphocytes % 6.4; MCHC 30.1 % (32.0-36.0); MCV 96.5 fL (80-95); MPV 12.7 fL (8.0-11.0); Monocytes % 17.5; Neutrophils % 73.9; Nucleated RBC 0 %; RBC 3.69 10^6/uL (4.36-5.78); RDW 17.6 % (11.8-14.1); RDW-SD 61.2 fL; WBC 7.78 10^3/uL (4.4-10.8)
[2020-10-20] MEDS: fentaNYL 100 MCG/2 ML VIAL 50 MCG IVP (12:23)
[2020-10-20 12:27] LABS: ALT 26 U/L (16-63); AST 38 U/L (15-37); Albumin 3.8 g/dL (3.4-5.0); Alkaline Phosphatase 120 U/L (46-116); Anion Gap 7.1 mmol/L (3-11); BUN 17 mg/dL (7-18); Bilirubin, Total 0.8 mg/dL (0.2-1.0); CO2 28.9 mmol/L (21.0-32.0); CREATININE 1.4 mg/dL (0.70-1.30); Calcium 8.1 mg/dL (8.5-10.1); Chloride 108 mmol/L (98-107); Estimated GFR 49.01 (mL/min/1.73m2); Glucose 103 mg/dL (74-106); Lipase 124 U/L (73-393); Sodium 144 mmol/L (136-145); Total Protein 7.9 g/dL (6.4-8.2)
[2020-10-20 12:30] LABS: Platelet Count 73 10^3/uL (130-400)
[2020-10-20 12:31] LABS: Anisocytosis 1+; Diff Comment PLT Morph Reviewed
[2020-10-20] MEDS: Ondansetron 4 MG/2 ML VIAL IVP ×2 (12:36→17:54)
[2020-10-20] MEDS: ACETAMINOPHEN 1,000 MG/100 ML BTL 400 MG IVPB (12:36)
[2020-10-20] MEDS: Omnipaque 350 MG/ML 100 ML BTL IJ (13:10)
[2020-10-20] MEDS: Normal Saline Flush 10 ML SYR IVP ×5 (13:13→22:00)
[2020-10-20] MEDS: Normal Saline - Diluent 50 ML VIAL IV (13:13)
--- NOTE | 2020-10-20 13:21 | DI.RAD_ITS ---
Exam(s) XR CHEST 2V PA LATERAL EXAM: XR CHEST 2V PA LATERAL CLINICAL HISTORY: hypoxia post emesis TECHNIQUE: 2D digital imaging was performed. COMPARISON: CR XR CHEST 2V PA LATERAL from 03/05/2018 FINDINGS: MEDIASTINUM: Normal. HEART: Normal. PULMONARY VASCULATURE: Normal. LUNGS: Atelectasis in the left lung base. The lungs are otherwise clear. PLEURAL SPACE: No pleural effusion or pneumothorax. BONE:Within normal limits for the patient's age. OTHER FINDINGS:Normal. IMPRESSION: No acute pulmonary findings. DATA REPOSITORY: RADIATION DOSE DELIVERED:
[2020-10-20] MEDS: fentaNYL 100 MCG/2 ML VIAL 25 MCG IVP (14:56)
--- NOTE | 2020-10-20 15:00 | DI.RAD_ITS ---
Exam(s) XR ABDOMEN FLAT PLATE EXAM: XR ABDOMEN FLAT PLATE CLINICAL HISTORY: ng tube. TECHNIQUE: 2D digital imaging was performed. COMPARISON: CR ABDOMEN 2 VIEW FLAT, UPRIGHT from 04/27/2017 FINDINGS: There is an NG tube in the stomach. Its distal tip is just beyond the GE junction and requires furth er advancement into the stomach as holes are still in the esophagus. Stomach is not overly distended . There are multiple air-filled abnormally dilated bowel loops in the abdomen pelvis. Difficult to ass ess accurately on a supine film. There is contrast in the urinary bladder most probably related to r ecent CT scan. Also contrast in the kidneys. IMPRESSION: There are multiple loops of dilated small bowel. Recommend upright or decubitus views to determine i f there is obstruction or free air. NG tube distal tip is in the proximal stomach and should be advanced further into the stomach. DATA REPOSITORY: RADIATION DOSE DELIVERED:
[2020-10-20] MEDS: Lactated Ringers 1,000 ML 125 ML IV (15:30)
[2020-10-20 15:51] LABS: Source Nasal/Nares
[2020-10-20] MEDS: MORPHine 4 MG/ML SYR (16:21)
[2020-10-20 16:52] LABS: COVID-19 PCR Negative (Negative)
--- NOTE | 2020-10-20 16:57 | W.PM.HP.N ---
Date of service: 10/20/20 Time of Service: 16:58 Assessment and Plan Assessment and plan (1) CKD (chronic kidney disease) stage 3, GFR 30-59 ml/min: Status: Chronic Qualifiers: Chronic kidney disease stage 3 subtype: unspecified whether 3a or 3b Qualified Code(s): N18.30 - Chronic kidney disease, stage 3 unspecified (2) Ileostomy status: Status: Chronic (3) [place]'s disease: Status: Chronic (4) Asthma: Status: Chronic Qualifiers: Asthma complication type: uncomplicated Asthma persistence: intermittent Asthma severity: unspecified severity Qualified Code(s): J45.20 - Mild intermittent asthma, uncomplicated (5) GERD (gastroesophageal reflux disease): Status: Chronic Qualifiers: Esophagitis presence: esophagitis presence not specified Qualified Code(s): K21.9 - Gastro-esophageal reflux disease without esophagitis (6) Small bowel obstruction: Status: Acute Assessment and plan: NGT decompression hydration pain management change meds to IV- pharma consult supportive care If patient requires a surgical intervention then we will [place] [facility] [place] Currently no signs of peritonitis. And he is having output from his ostomy History of Present Illness Narrative: Patient is well-known to the surgical service. He has had multiple surgeries in the past. This is the second time he has been admitted at [facility] for a bowel obstruction. His original colectomy was for ulcerative colitis. He stated states he has had 2 days worth of abdominal pain nausea and vomiting and minimal output from his ileostomy. He has had minimal output from his NG tube since he arrived to the floor. He is actually having output from his ostomy. He has minimal abdominal pain. His bowel sounds are high-pitched, however, and he still has some mild distention. There is no peritonitis. There is no signs of any recurrence of hernias. He does have a large mesh in place. I did convert over his many medications to IV as possible. Pharmacy is consulted for help with conversion I did personally review his CT scan and do concur that he does have a bowel obstruction. We will continue with supportive care. Because of his extensive number of bowel surgeries if he does need any intervention he will be transferred to [facility]. This is also per preference. from H&P 01/13: His Past Surgical history is quite extensive. He tells me that he has had numerous bowel surgeries. First surgery was for colon cancer. He is s/p total collectomy and ileostomy. he has had a cholecystectomy, adrenal mass excision, ileostomy creation and repair of hernia. Ileostomy takedown due to hernia and repositioning to the [facility]. he has had Brain surgery for a bleed, He has had transphenoidal hypophysectomy. He has had multiple small bowel obstructions in the past. States that this is the first obstruction since his ostomy was moved to the [facility]. He is having crampy abdominal pain. Discussed DNR Status. He doesn't want compressions if his heart stops. He is open to intubation if it is believed to be short term. He is open to possible surgery for his obstruction if it doesn't resolve. All of his surgeries have been done [place] [facility] [place] for his brain bleed evacuation. If his obstruction doesn't resolve will will transfer the patient to [facility] [place]. 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 Allergic rhinitis (11/06/15) Ankylosing spondylitis Asthma Atrial fibrillation (11/06/15) Cholecystitis, acute with cholelithiasis Cholelithiasis Cholestatic jaundice Chronic back pain Chronic deep vein thrombosis (DVT) of lower extremity (11/06/15) Chronic systolic CHF (congestive heart failure) (11/06/15) CKD (chronic kidney disease) stage 3, GFR 30-59 ml/min (11/06/15) COPD (chronic obstructive pulmonary disease) Current use of intermediate project manager anticoagulation (11/06/15) 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 Iron deficiency anemia (11/06/15) Lichen planus (11/06/15) Malignant neoplasm of colon (11/06/15) Obesity (11/06/15) Obstructive uropathy DEVORAH on CPAP (11/06/15) Osteopenia (11/06/15) Dexa T -2.1 femoral neck 2009 Dexa T -1.8 LS spine 2006 Osteoporosis of forearm (08/19/16) T-score -3.7 [facility] [place] Rheumatoid arthritis (11/06/15) Seizure disorder Small bowel obstruction (02/27/14) Subdural hematoma Uncomplicated asthma (11/06/15) Urinary retention UTI (urinary tract infection) Weakness Surgical History Cholecystectomy (02/15/16) [facility] [place]oureteroscopy,lithotrypsy (05/11/15) with L stent insertion Extraction of cataract (07/28/16) R eye surgeon Amanda Ochoa MD Fracture, Closed Treatment (02/15/16) [facility] [place]Distal Rt Radius Fx H/O hemicolectomy H/O surgical procedure (~09/1997) a. total proctocolectomy with end ileostomy in stages b. Appendectomy c. Hernia repair d. excision of renal adenomas H/O total adrenalectomy Bilateral hernia repair (04/08/99) parastomal R/trelex mesh History of appendectomy Hx of heart surgery ablation after mapping [facility] [place] repair retinal breaks (12/24/03) S/P brain surgery for evacuation of a bleed- UV S/P ileostomy ileostomy moved from RLQ to LLQ- [facility] [place] S/P TURP transsphenoidal hypophysectomy (11/15/93) Transurethral prostatectomy (11/24/14) Family History Mother , CVA Stroke Father , lung CA No problems noted. Sister , COPD No problems noted. Brother , unknown at age 29. No problems noted. Brother Diabetes ASCVD (arteriosclerotic cardiovascular disease) Brother No problems noted. Sister Diabetes Sister No problems noted. Other Arthritis Social History Smoking/Tobacco Use Status: Former Tobacco Use Smoking risk assessment performed?: Yes Alcohol Intake: current Alcohol Intake frequency: a few times a week Alcohol type: beer Drug use: Never Substance use type: does not use Household members: none Housing: penitentiary current occupation: Retired What type of physical activity do you participate in: walking Do you feel safe at home: Yes Do you feel safe in your relationship?: Yes Meds Allergies and Home Medications Allergies Allergy/AdvReac Type Severity Reaction Status Date / Time latex Allergy Intermediate rash, Verified 10/20/20 12:33 itching plasma protein fraction Allergy Intermediate Hives Verified 10/20/20 12:33 acebutolol Allergy Unknown Verified 10/20/20 12:33 promethazine Allergy Unknown Verified 10/20/20 12:33 pseudoephedrine Allergy Unknown Verified 10/20/20 12:33 terazosin Allergy Unknown Verified 10/20/20 12:33 tramadol HCl [From Ultracet] Allergy Unknown Verified 10/20/20 12:33 ceftriaxone Allergy Unverified 10/20/20 12:33 chlorpheniramine Allergy Unverified 10/20/20 12:33 venom-honey bee Allergy Verified 10/20/20 12:33 [bee venom (honey bee)] ferrous sulfate AdvReac Severe Stomach Verified 10/20/20 12:33 aches tamsulosin HCl [From Flomax] AdvReac Severe Dizziness/L Verified 10/20/20 12:33 ightheade Antihistamines - Alkylamine AdvReac Unknown affected Verified 10/20/20 12:33 prostate cefuroxime AdvReac Unknown daark urine Verified 10/20/20 12:33 plasma human Allergy Intermediate Hives Uncoded 10/20/20 12:33 Home Medications Medication Instructions Recorded Confirmed Type epinephrine 0.3 mg SUB-Q PRN PRN 10/07/14 10/20/20 History folic acid 1 mg PO DAILY 10/24/16 10/20/20 History montelukast 10 mg PO DAILY #90 tab-cap 01/03/17 10/20/20 Rx BD Regular Bevel [place] #12 ea 11/16/17 12/26/18 Rx budesonide-formoterol HFA 160 1 puff INHALATION BID #3 canister 02/07/18 10/20/20 Rx mcg-4.5 mcg/actuation aerosol inhaler cyanocobalamin (vitamin B-12) 1,000 mcg IM .Q 60 DAYS 07/30/18 10/20/20 History fluticasone propionate 2 spray NS HS 07/30/18 10/20/20 History hydrocortisone 5 mg PO BID@0800,1700 07/30/18 10/20/20 History hydrocortisone 20 mg PO DAILY 07/30/18 10/20/20 History ondansetron HCl 4 mg PO .Q6H, PRN 07/30/18 10/20/20 History mirtazapine 3.75 mg PO .QHS 01/02/19 05/09/20 History multivitamin,tx-minerals 1 tab PO DAILY 01/02/19 10/20/20 History ergocalciferol (vitamin D2) 50,000 unit PO QMONTH 01/12/20 10/20/20 History methotrexate sodium 10 mg PO QWEEK 01/12/20 10/20/20 History pantoprazole 40 mg PO DAILY 01/12/20 10/20/20 History [facility] Fiber 3.4 pwd PO TID #340 g 01/14/20 10/20/20 Rx loperamide [Imodium A-D] 2 mg PO QID PRN #0 tab 01/14/20 05/09/20 Rx Vimpat 100 mg PO BID 05/09/20 10/20/20 History hydrocodone-acetaminophen 1 tab PO Q6H PRN 05/09/20 05/09/20 History fludrocortisone 0.2 mg PO DAILY #90 tab-cap 05/11/20 10/20/20 Rx acetaminophen 325 mg PO DIRECTED PRN 06/24/20 06/24/20 History cetirizine 10 mg PO DAILY 06/24/20 10/20/20 History denosumab [Prolia] 60 mg SUBCUT ONCE 06/24/20 10/20/20 History diclofenac sodium 4 g TOPICAL QID 06/24/20 06/24/20 History gabapentin 200 mg PO TID 06/24/20 10/20/20 History Exam GI Inspection: distended, incision and scar Palpation: tender (minimal) and No ascites Auscultation: high-pitched sounds and hyperactive bowel sounds Other: ileostomy is + production Results Labs Result diagrams: 10/20/20 12:00 10/20/20 12:00 Labs: Laboratory Results - last 24 hr 10/20/20 10/20/20 10/20/20 12:00 12:00 15:48 WBC 7.78 RBC 3.69 L Hgb 10.7 L Hct 35.6 L MCV 96.5 H MCH 29.0 MCHC 30.1 L RDW 17.6 H Plt Count 73 L MPV 12.7 H Immature Gran % 0.9 Neutrophils % 73.9 Lymphocytes % 6.4 Monocytes % 17.5 Eosinophils % 0.9 Basophils % 0.4 Nucleated RBC % 0 Absolute Neutrophils 5.75 Absolute Lymphocytes 0.50 L Absolute Monocytes 1.36 H Absolute Eosinophils 0.07 Absolute Basophils 0.03 RBC Morphology See Below Anisocytosis 1+ Sodium 144 Potassium 5.0 Chloride 108 H Carbon Dioxide 28.9 Anion Gap 7.1 BUN 17 Creatinine 1.4 H Estimated GFR/1.73 m2 49.01 Glucose 103 Calcium 8.1 L Total Bilirubin 0.8 AST 38 H ALT 26 Alkaline Phosphatase 120 H Total Protein 7.9 Albumin 3.8 Lipase 124 COVID-19 Source Nasal/Nares SARS-CoV-2 (PCR) Negative Last Vital Signs Temp 36.7 C 10/20/20 11:42 Pulse 113 H 10/20/20 16:01 Resp 20 10/20/20 11:42 BP 136/74 10/20/20 16:01 Pulse Ox 92 10/20/20 16:10
[2020-10-20] MEDS: Pantoprazole 40 MG VIAL IVP (17:36)
[2020-10-20] MEDS: MORPHine 2 MG/ML SYR IVP ×2 (17:43→22:00)
[2020-10-20 18:34] LABS: Ferritin 39 ng/mL (26-388); Magnesium 1.8 mg/dL (1.8-2.4)
[2020-10-20] MEDS: Hydrocortisone SOD SUC. 100 MG VIAL 15 MG IVP (19:30)
[2020-10-20 20:38] LABS: Iron 62 ug/dL (65-175); Total Iron Binding Capacity 392 ug/dL (250-450); Transferrin Sat 16 % (20-55)
[2020-10-20] MEDS: Prochlorperazine 10 MG/2 ML VIAL 5 MG IVP (21:59)
--- NOTE | 2020-10-20 23:32 | DI.VRAD_ITS ---
PROCEDURE INFORMATION: Exam: XR Abdomen Exam date and time: 10/20/2020 3:12 PM Age: 80 years old Clinical indication: Abdominal pain; Other: Ng tube TECHNIQUE: Imaging protocol: XR of the abdomen. Views: Frontal supine view of the abdomen. 1 View. COMPARISON: CT ABDOMEN PELVIS W 10/20/2020 12:58 PM FINDINGS: Tubes, catheters and devices: NG tube terminates in the stomach, but the proximal side-hole is likely in the region of the GE junction. Gastrointestinal tract: Multiple loops of mildly dilated small bowel are seen. Organs: Retained contrast in bladder. Bones/joints: Unremarkable. IMPRESSION: Gastric suction tube tip terminates in the stomach Dictated and Authenticated by: Diego Boudreaux MD. Ordering:ANH Cormier MD
[2020-10-21] VITALS (16 sets, daily range): BP systolic 52; BP diastolic 31; PULSE 19–141; RESP 16–20; TEMP 36.2; O2SAT 83–93
[2020-10-21] MEDS: Lactated Ringers 1,000 ML 125 ML IV (00:42)
[2020-10-21 00:56] LABS: HCT 38.9 % (40.0-50.0); HGB 11.1 g/dL (13.5-17.5); MCHC 28.5 % (32.0-36.0); RBC 3.83 10^6/uL (4.36-5.78); RDW 18.4 % (11.8-14.1); RDW-SD 65.9 fL
[2020-10-21 00:59] LABS: MCV 101.6 fL (80-95); WBC 52.92 10^3/uL (4.4-10.8)
[2020-10-21 01:00] LABS: Platelet Count 99 10^3/uL (130-400)
[2020-10-21 01:02] LABS: MPV 11.6 fL (8.0-11.0)
[2020-10-21] MEDS: Normal Saline 2,000 ML 1000 ML IV (01:30)
--- NOTE | 2020-10-21 01:30 | DI.RAD_ITS ---
Exam(s) XR PORTABLE CHEST AP POST LINE EXAM: XR PORTABLE CHEST AP POST LINE CLINICAL HISTORY: intubation. TECHNIQUE: 2D digital imaging was performed. COMPARISON: CR XR CHEST 2V PA LATERAL from 10/20/2020 FINDINGS: Endotracheal tube is in satisfactory position. NG tube is noted in the proximal stomach just beyond the GE junction. Should be further advanced. Numerous chest leads and pads are noted. Cardiomegaly again noted. Widened mediastinum is probably related to portable supine technique Infiltrate noted in the mid right lung zone. Left lung is partially obscured by overlying cardiac pa ds. No obvious pneumothorax. No large pleural effusions evident. IMPRESSION: ET tube in satisfactory position. Some infiltrate in right lung is noted. Recommend follow-up PA an d lateral views when clinically possible. NG tube should be further advanced into the stomach. DATA REPOSITORY: RADIATION DOSE DELIVERED: All CT scans at this facility use at least one of these dose optimization techniques: automated exposure control; mA and/or kV adjustment per patient size (includes targeted e xams where dose is matched to clinical indication); or iterative reconstruction.
--- NOTE | 2020-10-21 02:07 | DI.VRAD_ITS ---
PROCEDURE INFORMATION: Exam: XR Chest Exam date and time: 10/21/2020 1:41 AM Age: 80 years old Clinical indication: Pain; Other: Intubation TECHNIQUE: Imaging protocol: XR of the chest. Views: 1 view. COMPARISON: CR XR CHEST 2V PA LATERAL 10/20/2020 1:12 PM FINDINGS: Tubes, catheters and devices: Endotracheal tube terminates in good position just below the level of the clavicles. Gastric suction tube terminates in the stomach, but the proximal side hole is likely still in the esophagus. Consider advancement. Multiple pads and leads project over the patient. Lungs: Scattered non-specific pulmonary opacities are mild may represent atelectasis. Attention on follow-up recommended. Pleural spaces: Unremarkable. No pleural effusion. No pneumothorax. Heart/Mediastinum: Unremarkable. No cardiomegaly. Bones/joints: Unremarkable. IMPRESSION: Endotracheal tube in good position Dictated and Authenticated by: Diego Boudreaux MD. Ordering:ELI Chavez MD
[2020-10-21] MEDS: Naloxone 0.4 MG/ML VIAL 1.4 MG IVP (02:10)
--- NOTE | 2020-10-21 02:12 | PROC.BLANK_ITS ---
Date of service: 10/21/20 Time of Service: 01:29 Procedures Intubation Time out performed: No sedative: none Laryngoscope: Rob ET Tube Size: 8 ET Tube Uncuffed: Yes Tube Secured Depth (cm): 24 Tube Secured Location: lips Tube Placement Confirmation: visualized tube passing through cords, equal breath sounds bilaterally and confirmation by capnometry Intubation Complications: none Narrative Narrative Narrative: Responded to CODE BLUE on the floor. By nursing report patient had been admitted to the med/surg unit with a small bowel obstruction. He had received morphine at 10 PM. On nursing check this morning he was found to be unresponsive. He was moved to the ICU. He did receive 0.4 mg Narcan. SUE LOVE was called. On my arrival patient was being bagged and CPR was in progress. Patient ordered for 1 mg of Narcan and 1 mg of epinephrine with continued compressions and assisted ventilation while I prepared for intubation. Rhythm checks showed PEA with no pulses detected. CPR was continued. Epinephrine given in approximate 5-minute intervals. Patient was intubated on the first attempt. Colorimetric change noted on end-tidal. After intubation and repeated rounds of epinephrine patient had ROSC. Noted to have what appeared to be gastric contents in the ET tube and ET tube was suctioned. ET tube secured at 24. End-tidal CO2 capnography started. Patient would periodically become pulseless with end-tidal CO2 dropping. CPR would be restarted and a dose of epinephrine given and patient would recover. Patient started on fluid resuscitation as well as Levophed drip. Portable chest x-ray obtained and shows ET tube to be in good position. NG tube was advanced further. I did speak to Dr. Luciano who admitted the patient earlier this afternoon. She requests a consult to the hospitalist to manage patient at this point. Patient was stable for period of time on Levophed drip, intubated and laboratory studies, head CT, CTA of the chest were ordered. Patient coded once again and was taken off the vent and bagged while CPR was performed. Patient recovered with 1 dose of epi, 1 dose of atropine, 2 doses of bicarb. On second ROSC hospitalist present. I gave him summary of the code and my interventions as well as my suggestions regarding further work-up. Nursing and hospitalist to contact family for further discussion regarding continued resuscitation. Upon my evaluation, this patient had a high probability of imminent or life- threatening deterioration, which required my direct attention, intervention, and personal management. I have personally provided 60 minutes of critical care time exclusive of time spent on separately billable procedures. Time includes review of laboratory data, radiology results, discussion with consultants, and monitoring for potential decompensation. Interventions were performed as documented above.
[2020-10-21] MEDS: Atropine 1 MG/10 ML SYRINGE IVP (02:20)
[2020-10-21] MEDS: Sodium Bicarbonate 50 MEQ/50 ML SYR IVP (02:23)
--- NOTE | 2020-10-21 02:30 | RT.EKG_ITS ---
APPROVED REPORT Exam: Resting ECG Reason for Exam: code blue Patient Location: I HR:26 bpm ECG Measurements Heart Rate 26 AXIS PA [id number] P [id number] QRSd 196 QRS 92 QT 481 T 261 QTc 318 Conclusion Junctional rhythm...absent P waves, slow V-rate Nonspecific intraventricular conduction delay...QRSd >115mS, not LBBB/RBBB
--- NOTE | 2020-10-21 03:28 | MCONE_ITS ---
Date of service: 10/21/20 Time of Service: 03:29 Assessment and Plan Assessment and plan (1) Small bowel obstruction: Start date: 10/20/20 Status: Acute Assessment and plan: 80-year-old gentleman who was hospitalized for small bowel fracture and had complications with persistent vomiting after placement of NG tube and unresponsive as complications of his acute distress. (2) Acute ST elevation myocardial infarction (STEMI): Start date: 10/21/20 Status: Acute Assessment and plan: EKG just prior to that did reveal junctional bradycardia with acute ST segment elevation anteroseptal VT with this most likely been a consequence of stress secondary to decompensated with small bowel obstruction there is a high likelihood embolic event with patient having recurrent PEA with support during CODE BLUE. Autopsy was not requested. Yesterday it will be filled out with this limited knowledge. DPOA and local fa chelsea were engaged in conversation at the time of the patient. They agree to DNR/DNI status as his wishes prior to CODE BLUE being called. I did spend 60 minutes in the ICU at the bedside assessing situation and making calls to family decide on withdrawal of therapy with patient not responding to aggressive CODE BLUE maneuvers. Qualifiers: Involved coronary artery: unspecified coronary artery Qualified Code(s): I21.3 - ST elevation (STEMI) myocardial infarction of unspecified site History of Present Illness History of Present Illness Chief Complaint: Nausea vomiting with small bowel recurrent Narrative: This is a 80-year-old male patient admitted for small bowel surgery service she was found unresponsive by the nurse team just before CODE BLUE was called. I was consulted by phone as CODE BLUE was being performed by ED physician, Dr. Riggins. He decagrams notes. As I approached the room the patient was going in and out of pulseless electrical activity with 2 ROSC episodes during resuscitation which was medically maximized and patient was continuing to return to pulseless electrical activity and low blood pressure with pulse as I called family and confirmed CODE STATUS. The DPOA, Cassidy Arias confirmed that the patient was a DNR/DNI. Shortly after this conversation the patient lost a blood pressure on maximum dose infusion of Levophed. Patient was pronounced at 2:55 AM that and was extubated with IVs removed. EKG just prior to this event did reveal bradycardia with wide-complex QRS with tombstone elevation of the ST segment anterioseptally. Certificate will be filled out accordingly with the patient having no overt history of CAD but risk factors of thromboembolic event with DVTs in upper and lower extremities and risk factors for atherosclerotic vessel disease with hypertension and obesity. Family does not want autopsy. I also called the patient [id number] Nicole, who lives locally in [place], [place]. 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 Allergic rhinitis (11/06/15) Ankylosing spondylitis Asthma Atrial fibrillation (11/06/15) Cholecystitis, acute with cholelithiasis Cholelithiasis Cholestatic jaundice Chronic back pain Chronic deep vein thrombosis (DVT) of lower extremity (11/06/15) Chronic systolic CHF (congestive heart failure) (11/06/15) CKD (chronic kidney disease) stage 3, GFR 30-59 ml/min (11/06/15) COPD (chronic obstructive pulmonary disease) Current use of long term acute care registered nurse anticoagulation (11/06/15) 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 Iron deficiency anemia (11/06/15) Lichen planus (11/06/15) Malignant neoplasm of colon (11/06/15) Obesity (11/06/15) Obstructive uropathy DEVORAH on CPAP (11/06/15) Osteopenia (11/06/15) Dexa T -2.1 femoral neck 2009 Dexa T -1.8 LS spine 2006 Osteoporosis of forearm (08/19/16) T-score -3.7 [facility] [place]umatoid arthritis (11/06/15) Seizure disorder Small bowel obstruction (02/27/14) Subdural hematoma Uncomplicated asthma (11/06/15) Urinary retention UTI (urinary tract infection) Weakness Surgical History Cholecystectomy (02/15/16) [facility] [place],lithotrypsy (05/11/15) with L stent insertion Extraction of cataract (07/28/16) R eye surgeon Amanda Ochoa MD Fracture, Closed Treatment (02/15/16) [facility] [place] Rt Radius Fx H/O hemicolectomy H/O surgical procedure (~09/1997) a. total proctocolectomy with end ileostomy in stages b. Appendectomy c. Hernia repair d. excision of renal adenomas H/O total adrenalectomy Bilateral hernia repair (04/08/99) parastomal R/trelex mesh History of appendectomy Hx of heart surgery ablation after [place] [facility] [place] repair retinal breaks (12/24/03) S/P brain surgery for evacuation of a bleed- [facility] S/P ileostomy ileostomy moved from RLQ to LLQ- [facility] [place]/P TURP transsphenoidal hypophysectomy (11/15/93) Transurethral prostatectomy (11/24/14) Family History Mother , CVA Stroke Father , lung CA No problems noted. Sister , COPD No problems noted. Brother , unknown at age 29. No problems noted. Brother Diabetes ASCVD (arteriosclerotic cardiovascular disease) Brother No problems noted. Sister Diabetes Sister No problems noted. Other Arthritis Social History Smoking/Tobacco Use Status: Former Tobacco Use Smoking risk assessment performed?: Yes Alcohol Intake: current Alcohol Intake frequency: a few times a week Alcohol type: beer Drug use: Never Substance use type: does not use Household members: none Housing: residential current occupation: Retired What type of physical activity do you participate in: walking Do you feel safe at home: Yes Do you feel safe in your relationship?: Yes Exam Narrative Exam Narrative: As described in HPI with no complete physical but observation during CODE BLUE. Results Last Vital Signs Temp 37.2 C 10/20/20 21:14 Pulse 118 H 10/20/20 21:14 Resp 20 10/21/20 02:10 BP 107/60 10/20/20 21:14 Pulse Ox 93 10/21/20 02:10 Labs Result diagrams: 10/21/20 00:45 10/20/20 12:00 Labs: Laboratory Results - last 24 hr 10/20/20 10/20/20 10/20/20 12:00 12:00 12:00 WBC 7.78 RBC 3.69 L Hgb 10.7 L Hct 35.6 L MCV 96.5 H MCH 29.0 MCHC 30.1 L RDW 17.6 H Plt Count 73 L MPV 12.7 H Immature Gran % 0.9 Neutrophils % 73.9 Lymphocytes % 6.4 Monocytes % 17.5 Eosinophils % 0.9 Basophils % 0.4 Nucleated RBC % 0 Absolute Neutrophils 5.75 Absolute Lymphocytes 0.50 L Absolute Monocytes 1.36 H Absolute Eosinophils 0.07 Absolute Basophils 0.03 RBC Morphology See Below Anisocytosis 1+ Sodium 144 Potassium 5.0 Chloride 108 H Carbon Dioxide 28.9 Anion Gap 7.1 BUN 17 Creatinine 1.4 H Estimated GFR/1.73 m2 49.01 Glucose 103 Calcium 8.1 L Magnesium 1.8 Iron TIBC Transferrin % Sat Ferritin 39 Total Bilirubin 0.8 AST 38 H ALT 26 Alkaline Phosphatase 120 H Total Protein 7.9 Albumin 3.8 Lipase 124 COVID-19 Source SARS-CoV-2 (PCR) 10/20/20 10/20/20 10/21/20 12:00 15:48 00:45 WBC 52.92 H* D RBC 3.83 L Hgb 11.1 L Hct 38.9 L MCV 101.6 H D MCH 29.0 MCHC 28.5 L RDW 18.4 H Plt Count 99 L MPV 11.6 H Immature Gran % Neutrophils % Lymphocytes % Monocytes % Eosinophils % Basophils % Nucleated RBC % Absolute Neutrophils Absolute Lymphocytes Absolute Monocytes Absolute Eosinophils Absolute Basophils RBC Morphology Anisocytosis Sodium Potassium Chloride Carbon Dioxide Anion Gap BUN Creatinine Estimated GFR/1.73 m2 Glucose Calcium Magnesium Iron 62 L TIBC 392 Transferrin % Sat 16 L Ferritin Total Bilirubin AST ALT Alkaline Phosphatase Total Protein Albumin Lipase COVID-19 Source Nasal/Nares SARS-CoV-2 (PCR) Negative
--- NOTE | 2020-10-21 03:28 | RESPIRATORY ---
RT called in to ICU at 01:30 to respond to Code Blue. When RT arrived, pt was intubated and being ventilated via BVM. RT transitioned pt to [place] ventilator VC/AC, Vt 430, Rate 12, FiO2 1005, Peep 5. After aprx. 15 minutes of mechanical ventilation, pt lost ROSC and was unable to maintain vitals, BVM ventilation and compressions were resumed. RT extubated pt at 03:05 after time of was announced by Hospitalist Dr. Torres.
[2020-10-21] MEDS: EPINEPHrine 1 MG/10 ML SYR IVP (04:51)
[2020-10-21] MEDS: Normal Saline Flush 10 ML SYR IVP (04:57)
== END 2020-10-21 03:00 | disposition expired | DRG 388 ==
LOC: ER 15:46 → MS 16:44 → ICU 10-21 01:24
PROVIDERS: Admitting Provider Surgery; Emergency Provider Physician Assistant; PCP Family Medicine; Visit Provider Surgery
DX: I21.09 ST elevation (STEMI) myocardial infarction involving other coronary artery of anterior wall; E27.1 Primary adrenocortical insufficiency; I50.22 Chronic systolic (congestive) heart failure; I82.599 Chronic embolism and thrombosis of other specified deep vein of unspecified lower extremity; E89.6 Postprocedural adrenocortical (-medullary) hypofunction; I13.0 Hypertensive heart and chronic kidney disease with heart failure and stage 1 through stage 4 chronic kidney disease, or unspecified chronic kidney disease; Z93.2 Ileostomy status; K21.9 Gastro-esophageal reflux disease without esophagitis; N18.30 Chronic kidney disease, stage 3 unspecified; Z20.822 Contact with and (suspected) exposure to COVID-19; J45.20 Mild intermittent asthma, uncomplicated; Z85.038 Personal history of other malignant neoplasm of large intestine; M45.9 Ankylosing spondylitis of unspecified sites in spine; I48.91 Unspecified atrial fibrillation; G89.29 Other chronic pain; M54.9 Dorsalgia, unspecified; J44.9 Chronic obstructive pulmonary disease, unspecified; Z79.01 Long term (current) use of anticoagulants; F32.9 Major depressive disorder, single episode, unspecified; D50.9 Iron deficiency anemia, unspecified; E66.9 Obesity, unspecified; N13.9 Obstructive and reflux uropathy, unspecified; G47.33 Obstructive sleep apnea (adult) (pediatric); M06.9 Rheumatoid arthritis, unspecified; M81.0 Age-related osteoporosis without current pathological fracture; G40.909 Epilepsy, unspecified, not intractable, without status epilepticus; Z87.891 Personal history of nicotine dependence; Z66 Do not resuscitate; Z86.718 Personal history of other venous thrombosis and embolism; Z68.33 Body mass index [BMI] 33.0-33.9, adult; K56.699 Other intestinal obstruction unspecified as to partial versus complete obstruction
CPT/HCPCS: 36415; 71045; 80048; 80053; 82805; 83690; 85027; 87635; 93005; 96361; 96365; 96366; 96375; 96376; 99221; 99285; 31500; 71046; 74018; 74177; 82728; 83540; 83550; 83735; 84484; 85025; 93010; 99291; J0131; J0780; J1720; J2270; J2310; J2405; J3010; J3490